=== PATIENT | female | born 1985 | race Caucasian/White ===

== ENCOUNTER 2020-11-08 08:56 | Outpatient (CLI) | payer OTHER, SELFPAY ==
--- NOTE | ~2020-11-08 | MMUS_ITS ---
EXAMINATION: MM diagnostic mercedes BI w nisha, US breast BI complete HISTORY: Palpable left breast lump. Bilateral breast pain. TECHNIQUE: Bilateral full field ML, MLO and craniocaudal 3-D tomosynthesis images and right spot CC T omosynthesis image were performed and synthetic 2-D images were generated. Rolled medial and rolled l ateral craniocaudal views of right breast. CAD analysis was submitted and interpreted. High resolutio n complete bilateral breast ultrasound was performed. COMPARISON: 04/15/2019 bilateral diagnostic digital mammogram and complete bilateral breast ultrasound examination BREAST PARENCHYMAL COMPOSITION: The breasts are heterogeneously dense, which may obscure small masses . FINDINGS: MAMMOGRAPHIC FINDINGS: There is a biopsy marker on the left. History of prior benign left breast biopsy. There is an approximately 4 x 8 mm opacity in the posterior mid to upper inner right breast. No other suspicious mass of either breast is evident. ULTRASOUND: Right breast: 1:00 10 cm from nipple: There is an irregular hypoechoic mass measuring 6 x 3.5 x 3.1 mm, with some v ascularity. This likely corresponds to the mammographic mass noted in the upper inner quadrant of the right breast. Ultrasound-guided biopsy is recommended, with biopsy marker placement and subsequent p ostbiopsy mammogram to confirm that the sonographic and mammographic lesions correspond. No suspicious mass is detected elsewhere in the right breast. Left breast: No suspicious mass or shadowing is detected. IMPRESSION: 1. Suspicious 6 x 3.5 mm irregular right breast mass at 1:00 10 cm from nipple 2. Ultrasound-guided biopsy of right breast 1:00 lesion is recommended. BI-RADS category 4, suspicious findings. On 11/08/[address] Mccall telephoned the report and biopsy recommendation to Dr. Rick's [facility] Data Analyst Martha. Reviewed, dictated and finalized at location A. LATOR TECHNICIAN IMPRESSION: 1. Suspicious 6 x 3.5 mm irregular right breast mass at 1:00 10 cm from nipple 2. Ultrasound-guided biopsy of right breast 1:00 lesion is recommended. BI-RADS category 4, suspicious findings. On 11/08/[address] Mccall telephoned the report and biopsy recommenda tion to Dr. Rick's Log Handler Martha.
== END 2020-11-08 08:57 ==
PROVIDERS: PCP Family Medicine; Visit Provider Obstetrics & Gynecology
DX: N64.4 Mastodynia (principal); R92.8 Other abnormal and inconclusive findings on diagnostic imaging of breast
CPT/HCPCS: 76641; 77062; 77066; G0279

== ENCOUNTER → 2020-11-10 10:29 | Outpatient (CLI) | payer OTHER, SELFPAY ==
[2020-11-10 23:53] LABS: SARS-CoV-2 RNA PCR Negative
== END ==
PROVIDERS: PCP Family Medicine; Visit Provider Physician Assistant
DX: Z20.822 Contact with and (suspected) exposure to COVID-19 (principal); R52 Pain, unspecified
CPT/HCPCS: C9803; U0003; U0005

== ENCOUNTER → 2020-12-22 07:00 | Outpatient (CLI) | payer OTHER, SELFPAY ==
[2020-12-23 01:42] LABS: SARS-CoV-2 RNA PCR Negative
== END ==
PROVIDERS: PCP Family Medicine; Visit Provider Family Medicine
DX: R68.89 Other general symptoms and signs (principal); Z20.822 Contact with and (suspected) exposure to COVID-19
CPT/HCPCS: C9803; U0003; U0005

== ENCOUNTER 2021-06-26 15:25 | Emergency (ER) | payer OTHER, SELFPAY ==
[2021-06-26 15:32] VITALS: BP 135/93; PULSE 82; RESP 16; TEMP 36.2; O2SAT 98
--- NOTE | 2021-06-26 16:05 | ED.EAR ---
HPI - Ear Problem General Chief complaint: Ear Stated complaint: Ear Pain Time Seen by Provider: 06/26/21 15:50 Source: patient and RN notes reviewed Mode of arrival: ambulatory Limitations: no limitations History of Present Illness HPI Narrative: Patient presents today complaining of a 1 week history of left ear pain. Denies decreased hearing or drainage. Denies any additional symptoms to include cough, congestion, rhinorrhea, fever. Currently rates the ear pain 4/10 and has been using [id number] eardrops, Tylenol, and ibuprofen with mild relief. MD Complaint: ear pain Related Data Home Medications Medication Instructions Recorded Confirmed metoprolol succinate 100 mg 100 mg PO DAILY 07/07/20 06/26/21 tablet,extended release 24 hr escitalopram oxalate 10 mg PO DAILY 06/26/21 06/26/21 Allergies Allergy/AdvReac Type Severity Reaction Status Date / Time amlodipine Allergy Unknown peripheral Verified 06/26/21 15:52 edema promethazine Allergy Unknown Skin Verified 06/26/21 15:52 Reaction Review of Systems Review of Systems: CONSTITUTIONAL: Denies body aches, fever, chills, or sweats. EYES: Denies visual changes, redness, or discharge. ENT: Denies rhinorrhea, congestion, sore throat. + Left ear pain CARDIOVASCULAR: Denies chest pain, palpitations, or edema. RESPIRATORY: Denies cough or dyspnea. GASTROINTESTINAL: Denies abdominal pain, nausea, vomiting, or diarrhea. GENITOURINARY: Denies dysuria or hematuria. SKIN: Denies rash, itching, or wounds. MUSCULOSKELETAL: Denies back pain, joint pain, or myalgia. NEUROLOGIC: Denies headache, numbness, tingling, or weakness. PSYCH: Denies depression or anxiety. [facility] Surgical History Surgical History H/O dilation and curettage H/O wisdom tooth extraction H/O: section Hx of cholecystectomy Family History Family History Other Cerebrovascular accident Diabetes mellitus Family history of malignant neoplasm Hypertension Social History Social History Smoking status: Former smoker Smoking end date: 09/29/08 Alcohol intake: current Comments At time of signature, I have reviewed and agree with nursing past medical, surgical, social and family history unless otherwise noted. Please see nursing chart for further information. There is no relevant family history pertinent to the presenting complaint Exam Narrative: GENERAL: Well-appearing, well-nourished, and in no acute distress. HEAD: Normocephalic, atraumatic. EYES: EOMI. No redness or drainage. Conjunctivae normal. ENT: Mucous membranes pink and moist. Nares clear. No rhinorrhea. Right TM normal. Left TM erythematous and dull. NECK: Normal AROM. Supple. No lymphadenopathy. CHEST: No respiratory distress. Clear to auscultation. HEART: Regular rate and rhythm. No murmur appreciated. Normal peripheral pulses. EXTREMITIES: Normal range of motion. No edema. SKIN: Warm, dry, no rash. Capillary refill normal. Normal skin turgor. NEURO: No focal deficits. Alert and oriented x3. Gait steady. PSYCH: Normal affect. No signs of depression or anxiety. Course Vital Signs Vital signs: Vital Signs Temperature 97.2 F L 06/26/21 15:32 Pulse Rate 82 06/26/21 15:32 Respiratory Rate 16 06/26/21 15:32 Blood Pressure 135/93 H 06/26/21 15:32 Pulse Oximetry 98 06/26/21 15:32 Temperature 97.2 F L 06/26/21 15:32 Pulse Rate 82 06/26/21 15:32 Respiratory Rate 16 06/26/21 15:32 Blood Pressure 135/93 H 06/26/21 15:32 Pulse Oximetry 98 06/26/21 15:32 Reviewed. Pt has been instructed to follow up with her PCP regarding her elevated blood pressure today. Medical Decision Making Differential Diagnosis Differential Diagnosis: Otitis media, otitis externa, ruptured TM, serous otitis,
== END 2021-06-26 16:18 | disposition home or self-care (01) ==
PROVIDERS: Emergency Provider Nurse Practitioner; PCP Family Medicine
DX: H66.92 Otitis media, unspecified, left ear (principal); Z87.891 Personal history of nicotine dependence
CPT/HCPCS: 99213; G0463

== ENCOUNTER → 2021-08-18 00:31 | Outpatient (CLI) | payer OTHER, SELFPAY ==
[2021-08-18 18:14] LABS: SARS-CoV-2 RNA PCR Negative
== END ==
PROVIDERS: PCP Family Medicine; Visit Provider Physician Assistant
DX: R51.9 Headache, unspecified (principal); R09.81 Nasal congestion; Z20.822 Contact with and (suspected) exposure to COVID-19
CPT/HCPCS: C9803; U0003; U0005

== ENCOUNTER 2021-09-02 22:28 | Emergency (ER) | payer OTHER, SELFPAY ==
[2021-09-02 22:30] VITALS: BP 178/113; PULSE 93; RESP 20; TEMP 36.3; O2SAT 100
--- NOTE | 2021-09-03 01:08 | ED.EAR ---
HPI - Ear Problem General Chief complaint: Ear Stated complaint: r ear pain Time Seen by Provider: 09/03/21 00:55 Source: patient History of Present Illness HPI Narrative: Patient presents with right ear pain. Reports she has had symptoms all day and they are getting progressively worse. She is attempted iyyw-dez-easocys medications with out relief so she came to the ER for evaluation. She has rinse her ear out with hydroperoxide and noted some scant amount of drainage. She reports her hearing feels muffled on the right side. She also reports her pain is achy, constant, radiates to her jaw worsened with opening her jaw denies any fevers, chills, trauma. Related Data Home Medications Medication Instructions Recorded Confirmed metoprolol succinate 100 mg 100 mg PO DAILY 07/07/20 06/26/21 tablet,extended release 24 hr escitalopram oxalate 10 mg PO DAILY 06/26/21 06/26/21 Allergies Allergy/AdvReac Type Severity Reaction Status Date / Time amlodipine Allergy Unknown peripheral Verified 09/02/21 22:33 edema promethazine Allergy Unknown Skin Verified 09/02/21 22:33 Reaction Review of Systems Review of Systems: CONSTITUTIONAL: Denies fever, chills, or sweats. EYES: Denies visual changes, redness, or discharge. ENT: Denies rhinorrhea, congestion, sore throat CARDIOVASCULAR: Denies chest pain, palpitations, or edema. RESPIRATORY: Denies cough or dyspnea. GASTROINTESTINAL: Denies abdominal pain, nausea, vomiting, or diarrhea. GENITOURINARY: Denies dysuria or hematuria. SKIN: Denies rash or itching. MUSCULOSKELETAL: Denies back pain, joint pain, or myalgia. NEUROLOGIC: Denies headache, numbness, dizziness, or weakness. PSYCHIATRIC: Denies anxiety or depression. All systems reviewed & are unremarkable except as noted in HPI and below PMFSH Surgical History Surgical History H/O dilation and curettage H/O wisdom tooth extraction H/O: section Hx of cholecystectomy Family History Family History Other Cerebrovascular accident Diabetes mellitus Family history of malignant neoplasm Hypertension Social History Social History Smoking status: Former smoker Smoking end date: 09/29/08 Alcohol intake: current Exam Narrative: GENERAL: Well-appearing, well-nourished, and in no acute distress. HEAD: Normocephalic, atraumatic. EYES: PERRLA and EOMI. ENT: Nares clear, no rhinorrhea or epistaxis. Mucous membranes moist. Unable to visualize the right TM due to EAC being edematous and erythematous NECK: Supple. No masses. No JVD EXTREMITIES: Normal range of motion. No edema. SKIN: Warm, dry, no rash. NEURO: No focal deficits. Alert and oriented x3. PSYCH: Normal mood and affect. Course Vital Signs Vital signs: Vital Signs Temperature 36.3 C L 09/02/21 22:30 Pulse Rate 93 09/02/21 22:30 Respiratory Rate 20 09/02/21 22:30 Blood Pressure 178/113 H 09/02/21 22:30 Pulse Oximetry 100 09/02/21 22:30 Temperature 36.3 C L 09/02/21 22:30 Pulse Rate 99 09/03/21 01:26 Respiratory Rate 18 09/03/21 01:26 Blood Pressure 160/100 H 09/03/21 01:26 Pulse Oximetry 99 09/03/21 01:26 Medical Decision Making [facility] Narrative Medical decision making narrative: H&P as above, vss, pt looks clinically well, exam with edematous and erythematous EAC on the right, labs/img considered, symptomatic relief available as needed, on reevaluation pt continues to looks clinically well. Suspect otitis externa, dns abscess, severe sepsis, severe dehydration. plan to tx/monitor as op w/ pcm f/u findings/plan discussed with pt, pt agree/comfortable with plan, return precautions given Vital Signs Vital Signs: Vital Signs Temperature 36.3 C L 09/02/21 22:30 Pulse Rate 93 09/02/21 22:30 Respiratory Rate 20 09/02/21 22:30 Blood Pr
[2021-09-03 01:26] VITALS: BP 160/100; PULSE 99; RESP 18; O2SAT 99
== END 2021-09-03 01:27 | disposition home or self-care (01) ==
PROVIDERS: Emergency Provider Emergency Medicine; PCP Family Medicine
DX: H60.501 Unspecified acute noninfective otitis externa, right ear (principal)
CPT/HCPCS: 99283

== ENCOUNTER 2021-11-19 13:03 | Emergency (ER) | payer OTHER, SELFPAY ==
--- NOTE | ~2021-11-19 | XR_ITS ---
EXAMINATION: XR chest 2V EXAM DATE: 11/19/2021 15:07 INDICATION: Chest pain, palpitations, HTN, blurry vision. TECHNIQUE: Frontal and lateral projections of the chest obtained and reviewed. Comparison is made to prior examination from 06/30/2019. FINDINGS: The lungs are clear. There are no pleural effusions. The cardiomediastinal silhouette is within normal limits. There is no pneumothorax suspected. The bones and soft tissues are unremarkab le. IMPRESSION: No acute cardiopulmonary findings. Reviewed, dictated and finalized at location A. CH FOLDER
--- NOTE | ~2021-11-19 | CT_ITS ---
EXAMINATION: CT brain wo con INDICATION: Blurred vision and dizziness COMPARISON: 02/15/2019 TECHNIQUE: Standard unenhanced head CT. The dose-length product (DLP) was 605.33 mGy-cm. The mA was a djusted according to patient size. Iterative reconstruction technique was employed. FINDINGS: There is no intracranial hemorrhage, acute infarction, or abnormal mass lesion. The ventric les are normal. There is no abnormal mass effect or midline shift. The rome-white matter differentiat ion is normal. The basal cisterns are patent. The orbits are normal. The paranasal sinuses, mastoids and calvarium are normal. IMPRESSION: 1. No acute intracranial abnormality. Reviewed, dictated and finalized at location F. ULATING BLENDER
--- NOTE | 2021-11-19 13:04 | ECG_ITS ---
Measurements Intervals [place] Rate: 87 P: 44 NV: 158 QRS: -17 QRSD: 96 T: 30 QT: 375 QTc: 454 Interpretive Statements SINUS RHYTHM BORDERLINE R WAVE PROGRESSION, ANTERIOR LEADS BORDERLINE ECG Electronically Signed On 11-19-2021 13:14:43 EXERCISE PLANNER by Michael Alberto D.O.
[2021-11-19 13:14] VITALS: BP 179/111; PULSE 95; RESP 16; TEMP 36.4; O2SAT 96
[2021-11-19 14:56] LABS: Basophils Absolute Auto 0.1 K/mm3 (0.0-0.1); Basophils Percent Auto 0.7 % (0.2-1.2); Eosinophils Absolute Auto 0.2 K/mm3 (0-0.3); Eosinophils Percent Auto 2.5 % (0-4.4); Hematocrit 41.4 % (37.0-47.0); Hemoglobin 14.1 g/dL (12.0-15.0); Immature Granulocyte Absolute 0.04 K/mm3 (0.00-0.031); Immature Granulocyte Percent A 0.5 % (0-0.5); Lymphocytes Absolute Auto 2.62 K/mm3 (0.9-3.2); Lymphocytes Percent Auto 32.7 % (18.3-44.2); Mean Corpuscular HGB Conc 34.1 g/dl (32-36); Mean Corpuscular Hemoglobin 27.9 pg (26-34); Mean Corpuscular Volume 81.8 fl (80-100); Mean Platelet Volume 10.1 fl (7.4-10.4); Monocytes Absolute Auto 0.6 K/mm3 (0.1-0.6); Monocytes Percent Auto 7.5 % (2.6-8.5); Neutrophils Absolute Auto 4.5 K/mm3 (1.3-6.7); Neutrophils Percent Auto 56.1 % (45.5-73.1); Platelet Count Result 279 k/mm3 (150-375); Red Blood Count 5.06 M/mm3 (4.2-5.4)
[2021-11-19 15:00] LABS: Prothrombin Time 12.6 Seconds (11.1-14.7)
[2021-11-19 15:02] LABS: Alanine Aminotransferase 49 U/L (4-35); Albumin Level 4.3 g/dL (3.5-5.1); Alkaline Phosphatase 50 U/L (38-126); Anion Gap 8 mmol/L (8-16); Aspartate Amino Transferase 31 U/L (14-36); Bilirubin,Total 0.8 mg/dL (0.2-1.3); Blood Urea Nitrogen 10 mg/dL (7-17); Calcium 9.3 mg/dL (8.4-10.2); Carbon Dioxide 24 mmol/L (22-30); Chloride 104 mmol/L (98-107); Estimated CRCL calculation 125 ml/min; Estimated Glomerular Filt Rate > 60; Glucose 137 mg/dL (65-110); Lipase 89 U/L (23-300); Potassium 3.6 mmol/L (3.4-5.0); Sodium 136 mmol/L (137-145)
[2021-11-19 15:13] LABS: Troponin I < 0.012 ng/mL (0.000-0.034)
[2021-11-19 15:14] VITALS: BP 156/103; PULSE 96; RESP 20; O2SAT 98
--- NOTE | 2021-11-19 15:43 | ED.CHESTPAIN ---
HPI - Chest Pain General Chief Complaint: Chest Pain Stated Complaint: chest pain, dizzy Time Seen by Provider: 11/19/21 15:25 Source: patient Mode of arrival: ambulatory Limitations: no limitations History of Present Illness HPI narrative: 36 y/o female presents to the ER with complaints of feeling tired today. She feels like her vision is a little blurred today. She reports having feelings of brain fog today. She has had more palpitations than normal today. She has a history of PVCs. Her blood pressure is a little bit up today. She has not had any fever. No n/v/d. No congestion, cough or sore throat. Denies having any chest pain. Related Data Home Medications Medication Instructions Recorded Confirmed metoprolol succinate 100 mg 100 mg PO DAILY 07/07/20 09/14/21 tablet,extended release 24 hr Allergies Allergy/AdvReac Type Severity Reaction Status Date / Time amlodipine Allergy Unknown peripheral Verified 09/14/21 14:45 edema promethazine Allergy Unknown Skin Verified 09/14/21 14:45 Reaction Review of Systems Constitutional: Constitutional: Reports as per HPI Eyes: Eyes: Reports no additional eye complaints ENT: Reports system reviewed and no additional complaints, except as documented Cardiovascular: Cardiovascular: Reports as per HPI, Reports no additional cardiovascular complaints, Denies chest pain and Denies rapid heart rate Respiratory: Respiratory: Denies chest congestion, Denies cough and Denies dyspnea Gastrointestinal: Gastrointestinal: Denies abdominal pain, Denies diarrhea, Denies nausea and Denies vomiting Genitourinary: Genitourinary: Reports no additional female genitourinary complaints Musculoskeletal: Musculoskeletal: Reports no additional musculoskeletal complaints Integumentary/Breasts: Skin/Breast: Reports system reviewed and no additional complaints, except as docu Neurologic: Denies vertigo, Reports dizziness, Denies syncope, Denies focal weakness and Denies numbness Psychiatric: Psychiatric: Reports no additional psychiatric complaints Endocrine: Endocrine: Reports no additional endocrine complaints [facility] Surgical History Surgical History H/O dilation and curettage H/O wisdom tooth extraction H/O: section Hx of cholecystectomy Family History Family History Other Cerebrovascular accident Diabetes mellitus Family history of malignant neoplasm Hypertension Social History Social History Smoking status: Former smoker Smoking end date: 09/29/08 Alcohol intake: current Exam Const: General: no acute distress and alert Orientation/consciousness: patient oriented x3 HENMT: Head: normal to inspection Eyes: Conjunctivae: conjunctivae normal Pupils: Equal, round and reactive pupils present EOM: EOMs intact bilaterally Neck: Neck: normal visual inspection Chest: Chest palpation & inspection: normal inspection of the chest Resp: Effort & Inspection: normal respiratory effort Cardio: Rate: regular rate Rhythm: regular rhythm GI: GI Palp: Yes Soft to palpation, No Tenderness to palpation present (GI) and No Guarding due to palpation present (GI) Auscultation: normal bowel sounds Skin: General skin exam: normal color Neuro: General: patient oriented x3 and moves all extremities Extrem: General: normal to inspection Psych: Mental Status: mental status grossly normal Affect: normal affect Course Vital Signs Vital signs: Vital Signs Temperature 36.4 C 11/19/21 13:14 Pulse Rate 95 11/19/21 13:14 Respiratory Rate 16 11/19/21 13:14 Blood Pressure 179/111 H 11/19/21 13:14 Pulse Oximetry 96 11/19/21 13:14 Temperature 36.4 C 11/19/21 13:14 Pulse Rate 96 11/19/21 15:14 Respiratory Rate 20 11/19/21 15:14 Blood Pressure 156/103 H 0
== END 2021-11-19 17:19 | disposition home or self-care (01) ==
LOC: ANHED 17:00
PROVIDERS: Emergency Medicine; Emergency Provider Nurse Practitioner Family; PCP Family Medicine
DX: R00.2 Palpitations (principal); R42 Dizziness and giddiness; I10 Essential (primary) hypertension; Z87.891 Personal history of nicotine dependence; R94.31 Abnormal electrocardiogram [ECG] [EKG]
CPT/HCPCS: 36415; 70450; 71046; 80053; 83690; 84484; 85025; 85610; 85730; 93005; 99284

== ENCOUNTER 2022-01-25 00:45 | Day surgery (SDC) | payer OTHER, SELFPAY ==
[2022-01-14 12:44] VITALS: BMI 48.1
[2022-01-25 10:09] VITALS: BP 134/81; PULSE 82; RESP 18; TEMP 36.6; O2SAT 98
[2022-01-25] MEDS: LACTATED RINGERS 1,000 ML 150 ML IV CONT (10:22)
--- NOTE | 2022-01-25 10:58 | WPDHPUPDATE1 ---
History and Physical Update Update Date/Time: 01/25/22 10:58 History and Physical has been reviewed, including an updated exam of the patient. There are NO changes in the patient's condition. Risks, benefits, and alternatives have been discussed and questions answered. Patient agrees to proceed with procedure.
[2022-01-25 11:20] VITALS: BP 113/65; PULSE 75; RESP 15; O2SAT 98
[2022-01-25 11:30] VITALS: BP 107/74; PULSE 79; RESP 20; O2SAT 98
[2022-01-25 11:40] VITALS: BP 117/76; PULSE 76; RESP 18; O2SAT 98
== END 2022-01-25 11:52 | disposition home or self-care (01) ==
PROVIDERS: PCP Family Medicine; Visit Provider Internal Medicine Gastroenterology
PROC: 0DJ08ZZ Inspection of Upper Intestinal Tract, Via Natural or Artificial Opening Endoscopic (ICD-10-PCS; CPT 43235; principal; 2022-01-25 11:15)
DX: R10.13 Epigastric pain (principal); K21.9 Gastro-esophageal reflux disease without esophagitis; I10 Essential (primary) hypertension; M79.7 Fibromyalgia; Z87.891 Personal history of nicotine dependence; K58.9 Irritable bowel syndrome, unspecified; E66.01 Morbid (severe) obesity due to excess calories; Z68.42 Body mass index [BMI] 45.0-49.9, adult
CPT/HCPCS: 43239; 87081; 88305; J7120

== ENCOUNTER 2022-03-14 18:38 | Emergency (ER) | payer OTHER, SELFPAY ==
[2022-03-14 18:48] VITALS: BP 140/91; PULSE 90; RESP 18; TEMP 36.2; O2SAT 99
--- NOTE | 2022-03-14 18:51 | ED.URI ---
HPI - URI/Sore Throat General Chief Complaint: Upper Respiratory Infection Stated Complaint: Congestion,Cough Time Seen by Provider: 03/14/22 18:52 Source: patient Mode of arrival: ambulatory Limitations: no limitations History of Present Illness HPI Narrative: 36 yo F presents with c/o fatigue, sore throat, hot/cold chills, mild cough starting yesterday. Was exposed to sister and brother in law who both have covid. States her sister had neg test and then several days later was positive. Denies SOB/CP. Is covid vaccinated. All systems reviewed and negative except as noted above. Related Data Home Medications Medication Instructions Recorded Confirmed lisinopril 10 mg tablet 10 mg PO DAILY 12/31/21 03/14/22 metoprolol succinate 100 mg 100 mg PO DAILY 12/31/21 03/14/22 tablet,extended release 24 hr metoprolol succinate 50 mg 50 mg PO DAILY 12/31/21 03/14/22 tablet,extended release 24 hr Allergies Allergy/AdvReac Type Severity Reaction Status Date / Time amlodipine Allergy Unknown peripheral Verified 01/25/22 10:08 edema promethazine Allergy Unknown Skin Verified 01/25/22 10:08 Reaction Review of Systems Review of Systems: CONSTITUTIONAL: Reports fever, chills, or sweats. EYES: Denies visual changes, redness, or discharge. ENT: Denies rhinorrhea, congestion. Reports sore throat. CARDIOVASCULAR: Denies chest pain, palpitations, or edema. RESPIRATORY: Reports cough. Denies dyspnea. GASTROINTESTINAL: Denies abdominal pain, nausea, vomiting, or diarrhea. GENITOURINARY: Denies dysuria or hematuria. SKIN: Denies rash or itching. MUSCULOSKELETAL: Denies back pain, joint pain, or myalgia. NEUROLOGIC: Denies headache, numbness, or weakness. PSYCHIATRIC: Denies anxiety or depression. All other systems reviewed are negative, except as documented in HPI. [facility] Past Medical History Medical History IBS (irritable bowel syndrome) Surgical History Surgical History H/O dilation and curettage H/O wisdom tooth extraction H/O: section Hx of cholecystectomy Family History Family History Other Cerebrovascular accident Diabetes mellitus Family history of malignant neoplasm Hypertension Social History Social History Smoking packs per day: 1 Smoking cigarettes per day: 20.0 Years smoked: 5 Smoking pack-years: 5.00 Smoking status: Former smoker Tobacco type: cigarettes Smoking end date: 09/29/08 Alcohol intake: current Comments At time of signature, agree with nursing past medical, surgical, social and family history. There is no relevant family history pertinent to the presenting complaint. Exam Narrative: GENERAL: This is a well-nourished, well-developed patient. Patient is ill-appearing but no distress. HEAD: normocephalic, atraumatic. EYES: PERRL. Sclera clear/white. Vision is grossly intact. EARS: External ears normal, auditory canals clear and without drainage, TMs normal without perforation. Hearing grossly intact. NOSE: External nose normal with no obvious nasal discharge, nares without redness, no rhinorrhea. THROAT: Mucous membranes moist, mild erythema to posterior pharynx. NECK: Neck supple, non-tender without lymphadenopathy, masses or thyromegaly. CARDIOVASCULAR: Regular rate and rhythm without murmurs, gallops, or rubs. RESPIRATORY: Clear to auscultation. Breath sounds equal bilaterally. No wheezes, rales, or rhonchi. SKIN: warm, Dry, intact with no suspicious lesions or rash, good texture and turgor. NEURO: awake, alert, and oriented to person, place and time. There were no obvious focal neurologic abnormalities. EXTREMITIES: No joint tenderness, effusion, or edema noted. Course Course Level of Care: Express Care Visit Nikki
[2022-03-15 19:17] LABS: SARS-CoV-2 RNA PCR Negative
== END 2022-03-14 19:33 | disposition home or self-care (01) ==
PROVIDERS: Emergency Provider Nurse Practitioner Family; PCP Family Medicine
DX: J06.9 Acute upper respiratory infection, unspecified (principal); Z20.822 Contact with and (suspected) exposure to COVID-19; Z87.891 Personal history of nicotine dependence
CPT/HCPCS: 87081; 87426; 87804; 87880; 99213; C9803; G0463; U0003; U0005

== ENCOUNTER 2022-05-20 12:07 | Emergency (ER) | payer OTHER, SELFPAY ==
--- NOTE | ~2022-05-20 | CT_ITS ---
EXAMINATION: CTA chest PE protocol DATE: 05/20/2022 15:44 INDICATION: Chest pain, shortness of breath, COVID 19 positive TECHNIQUE: Computed tomography angiography (CTA) of the chest was performed with 100 mL Omnipaque-350 intravenous contrast timed to evaluate the pulmonary arteries. Coronal maximum intensity projection 3D-reconstructions were created by the technologist. The dose-length product (DLP) was 930.20 mGy-cm. Automated exposure control and iterative reconstruction technique were employed. COMPARISON: None. FINDINGS: The pulmonary arteries are well-opacified. No pulmonary embolism is identified. There is mi ld dependent atelectasis. No pleural effusion or pneumothorax. The heart size is normal. An enlarged left axillary lymph node measures up to 12 mm. Minimal minimal triangular soft tissue density of the anterior mediastinum is seen, likely residual thymus. There is mild thoracic spondylosis. IMPRESSION: 1. No pulmonary embolus identified. 2. Enlarged left axillary lymph node which may be reactive. Correlate for history of recent left-side d vaccination. In the absence of such history, follow-up with nonemergent ultrasound is recommended. Reviewed, dictated and finalized at location B. IMPRESSION: 1. No pulmonary embolus identified. 2. Enlarged left axillary lymph node which may be reactive. Correlate for histo ry of recent left-sided vaccination. In the absence of such history, follow-up with nonemergent ultrasound is recommended.
--- NOTE | ~2022-05-20 | XR_ITS ---
EXAMINATION: XR chest 2V DATE: 05/20/2022 13:12 INDICATION: Chest pain and shortness of breath TECHNIQUE: PA and lateral views of the chest are obtained. COMPARISON: 11/19/2021 FINDINGS: The lungs are free of acute opacities. No pleural effusion or pneumothorax. The cardiomedia stinal silhouette is normal. There is mild thoracic spondylosis. IMPRESSION: 1. No acute cardiopulmonary abnormality. Reviewed, dictated and finalized at location B.
--- NOTE | 2022-05-20 12:10 | ECG_ITS ---
Measurements Intervals [place] Rate: 73 P: 18 IL: 149 QRS: -15 QRSD: 100 T: 19 QT: 393 QTc: 433 Interpretive Statements SINUS RHYTHM POOR R WAVE PROGRESSION BORDERLINE ECG COMPARED TO ECG 11/19/2021 13:10:40 NO SIGNIFICANT CHANGES Electronically Signed On 05-20-2022 16:37:42 CDT by Isidoro Olvera M.D.
[2022-05-20 12:23] VITALS: BP 146/78; PULSE 74; RESP 16; TEMP 36.8; O2SAT 100
[2022-05-20 12:41] LABS: Basophils Absolute Auto 0.1 K/mm3 (0.0-0.1); Basophils Percent Auto 0.9 % (0.2-1.2); Eosinophils Percent Auto 0.8 % (0-4.4); Hematocrit 46.3 % (37.0-47.0); Hemoglobin 15.4 g/dL (12.0-15.0); Immature Granulocyte Absolute 0.02 K/mm3 (0.00-0.031); Immature Granulocyte Percent A 0.4 % (0-0.5); Lymphocytes Absolute Auto 2.31 K/mm3 (0.9-3.2); Lymphocytes Percent Auto 43.8 % (18.3-44.2); Mean Corpuscular HGB Conc 33.3 g/dl (32-36); Mean Corpuscular Hemoglobin 27.8 pg (26-34); Mean Corpuscular Volume 83.6 fl (80-100); Mean Platelet Volume 10.6 fl (7.4-10.4); Monocytes Absolute Auto 0.4 K/mm3 (0.1-0.6); Neutrophils Absolute Auto 2.4 K/mm3 (1.3-6.7); Neutrophils Percent Auto 46.1 % (45.5-73.1); Platelet Count Result 246 k/mm3 (150-375); Red Blood Count 5.54 M/mm3 (4.2-5.4); White Blood Count 5.3 K/mm3 (4.5-10.0)
[2022-05-20 12:52] LABS: INR 1.1; Prothrombin Time 13.6 Seconds (11.1-14.7)
[2022-05-20 12:53] LABS: Alanine Aminotransferase 79 U/L (6-35); Alkaline Phosphatase 49 U/L (38-126); Anion Gap 14 mmol/L (8-16); Aspartate Amino Transferase 49 U/L (14-36); Bilirubin,Total 0.7 mg/dL (0.2-1.3); Blood Urea Nitrogen 9 mg/dL (7-17); Calcium 9.5 mg/dL (8.4-10.2); Carbon Dioxide 22 mmol/L (22-30); Chloride 104 mmol/L (98-107); Estimated CRCL calculation 86 ml/min; Estimated Glomerular Filt Rate > 60; Glucose 171 mg/dL (65-110); Lipase 90 U/L (23-300); Potassium 3.7 mmol/L (3.4-5.0); Sodium 140 mmol/L (137-145)
[2022-05-20 13:04] LABS: Troponin I < 0.012 ng/mL (0.000-0.034)
[2022-05-20] MEDS: ASPIRIN 81 MG CHEWABLE TABLET 324 MG PO (13:41)
[2022-05-20 13:45] VITALS: BP 156/94; PULSE 76
[2022-05-20 13:49] VITALS: BP 165/85; PULSE 80
[2022-05-20 13:53] VITALS: BP 147/101; PULSE 96
--- NOTE | 2022-05-20 15:19 | ED.CHESTPAIN ---
HPI - Chest Pain General Chief Complaint: Chest Pain Stated Complaint: covid +, chest pain Time Seen by Provider: 05/20/22 13:37 History of Present Illness HPI narrative: Patient is a 37-year-old female who presents ER with chest pain. Central. Aching pressure is a descriptor. Began yesterday and has been constant. Patient was diagnosed on 05/18/2022 with COVID and has been taking Plavix to bed. Occasional cough. No dyspnea. No discomfort with palpation of the chest. Initially thought the discomfort was related to her fibromyalgia. No new calf cramping or lower extremity edema. Related Data Home Medications Medication Instructions Recorded Confirmed lisinopril 10 mg tablet 10 mg PO DAILY 12/31/21 05/03/22 metoprolol succinate 100 mg 200 mg PO DAILY 05/03/22 05/03/22 tablet,extended release 24 hr Allergies Allergy/AdvReac Type Severity Reaction Status Date / Time amlodipine Allergy Unknown peripheral Verified 05/03/22 13:02 edema promethazine Allergy Unknown Skin Verified 05/03/22 13:02 Reaction Review of Systems Review of Systems: All systems reviewed & are unremarkable except as noted in HPI and below Constitutional: Constitutional: Reports fatigue and Reports fever(s) Cardiovascular: Cardiovascular: Reports chest pain, Denies rapid heart rate and Denies radiating jaw, neck or arm pain Respiratory: Respiratory: Reports cough and Denies dyspnea Gastrointestinal: Gastrointestinal: Denies abdominal pain, Denies nausea and Denies vomiting Genitourinary: Genitourinary: Denies nocturia, Denies dysuria and Denies pelvic pain [facility] Past Medical History Medical History (Updated 05/20/22 @ 16:39 by Juan Sosa MD) Benign essential hypertension Bruxism Esophageal reflux Fibromyalgia IBS (irritable bowel syndrome) Panic disorder without agoraphobia PVC (premature ventricular contraction) Surgical History Surgical History H/O dilation and curettage H/O wisdom tooth extraction H/O: section Hx of cholecystectomy Family History Family History Other Cerebrovascular accident Diabetes mellitus Family history of malignant neoplasm Hypertension Social History Social History Smoking packs per day: 1 Smoking cigarettes per day: 20.0 Years smoked: 5 Smoking pack-years: 5.00 Smoking status: Former smoker Tobacco type: cigarettes Smoking end date: 09/29/08 Alcohol intake: current Exam Narrative: GENERAL: Well-appearing, well-nourished, and in no acute distress. HEAD: Normocephalic, atraumatic. NECK: Supple. CHEST: Clear to auscultation. No respiratory distress. HEART: Regular rate and rhythm. No murmur heard. Normal peripheral pulses. ABDOMEN: Soft, nontender, nondistended. EXTREMITIES: Normal range of motion. No edema. SKIN: Warm, dry, no rash. NEURO: Alert and oriented x3. PSYCH: Normal mood and affect. Course Course Emergency Course: Patient informed of results. Discussed enlarged lymph node and patient has had no recent immunizations. Recommend outpatient ultrasound patient verbalized understanding. We will perform second troponin if negative patient will be discharged. Patient's discomfort could be related to pleurisy or exacerbation of fibromyalgia. Vital Signs Vital signs: Vital Signs Temperature 98.3 F 05/20/22 12:23 Pulse Rate 74 05/20/22 12:23 Respiratory Rate 16 05/20/22 12:23 Blood Pressure 146/78 H 05/20/22 12:23 Pulse Oximetry 100 05/20/22 12:23 Oxygen Delivery Room Air 05/20/22 12:23 Temperature 98.3 F 05/20/22 12:23 Pulse Rate 96 05/20/22 13:53 Respiratory Rate 16 05/20/22 12:23 Blood Pressure 147/101 H 05/20/22 13:53 Pulse Oximetry 100 05/20/22 12:23 Oxygen Delivery Room Air 05/20/22 12:23 MDM - Chest Pain
[2022-05-20 16:45] LABS: Troponin I < 0.012 ng/mL (0.000-0.034)
== END 2022-05-20 16:42 | disposition home or self-care (01) ==
PROVIDERS: Emergency Medicine; Emergency Provider Emergency Medicine; PCP Family Medicine
DX: R07.9 Chest pain, unspecified (principal); U07.1 COVID-19; I10 Essential (primary) hypertension; K21.9 Gastro-esophageal reflux disease without esophagitis; M79.7 Fibromyalgia
CPT/HCPCS: 36415; 71046; 71275; 80053; 81025; 83690; 84484; 85025; 85610; 85730; 93005; 99284; A9270; Q9967

== ENCOUNTER 2022-07-28 09:47 | Emergency (ER) | payer OTHER, SELFPAY ==
--- NOTE | 2022-07-28 09:51 | ED.EAR ---
HPI - Ear Problem General Stated complaint: Left Ear Irritation Time Seen by Provider: 07/28/22 09:51 Source: patient Mode of arrival: ambulatory Limitations: no limitations History of Present Illness HPI Narrative: Ms. Cedeno is a 37-year-old female patient presenting to the clinic today with complaints left-sided ear pain. She reports that she had recently traveled to [place] and had left-sided ear pain. States that her ear was popping a lot in the plane. States that her trip back was a little bit better she was chewing gum however she does have some nasal congestion. No fever or chills Related Data Home Medications Medication Instructions Recorded Confirmed lisinopril 10 mg tablet 10 mg PO DAILY 12/31/21 07/28/22 metoprolol succinate 100 mg 200 mg PO DAILY 05/03/22 07/28/22 tablet,extended release 24 hr Allergies Allergy/AdvReac Type Severity Reaction Status Date / Time amlodipine Allergy Unknown peripheral Verified 07/28/22 10:02 edema promethazine Allergy Unknown Skin Verified 07/28/22 10:02 Reaction Review of Systems Review of Systems: Pertinent positives per HPI. Patient denies any fever, chills, rash, headache, visual changes, dizziness, cough, sore throat, shortness of breath, chest pain, palpitations, nausea, vomiting, diarrhea, constipation, abdominal pain, or any urinary issues. [facility] Past Medical History Medical History Benign essential hypertension Bruxism Esophageal reflux Fibromyalgia IBS (irritable bowel syndrome) Panic disorder without agoraphobia PVC (premature ventricular contraction) Surgical History Surgical History H/O dilation and curettage H/O wisdom tooth extraction H/O: section Hx of cholecystectomy Family History Family History Other Cerebrovascular accident Diabetes mellitus Family history of malignant neoplasm Hypertension Social History Social History Smoking packs per day: 1 Smoking cigarettes per day: 20.0 Years smoked: 5 Smoking pack-years: 5.00 Smoking status: Former smoker Tobacco type: cigarettes Smoking end date: 09/29/08 Alcohol intake: current Comments At the time of my signature, I reviewed and agree with the nursing past medical, surgical, social, and family history. There is no relevant family history pertinent to the patient complaint. Exam Narrative: General: Well-developed, obese, in no apparent distress Head: Normocephalic, atraumatic Eyes: Pupils equally round and reactive to light bilaterally, EOM intact, sclera and conjunctive clear, no discharge, lids normal Ears: right TMs intact and clear, left TM intact and bulging, ear canals clear, no drainage, grossly hearing normal. Nose: Nares patent, clear nasal discharge, no inflammation, no sinus tenderness. Mouth: Oropharynx without lesions or masses, good dentition, MMM. Neck: Supple, trachea midline, no enlargement of anterior or posterior cervical nodes, no thyroid masses or goiter palpable. Cardio: Regular rate and rhythm, s1 and s2 normal, no murmur appreciated. Resp: Clear to auscultation bilaterally anteriorly and posteriorly, no rhonchi, rales, wheezing or rubs Course Course Emergency Course: Portions of this record may have been created with voice recognition software. Level of Care: Express Care Visit Vital Signs Vital signs: Vital Signs Temperature 36.7 C 07/28/22 09:57 Pulse Rate 85 07/28/22 09:57 Respiratory Rate 16 07/28/22 09:57 Blood Pressure 139/87 07/28/22 09:57 Pulse Oximetry 97 07/28/22 09:57 Oxygen Delivery Room Air 07/28/22 09:57 Temperature 36.7 C 07/28/22 09:57 Pulse Rate 85 07/28/22 09:57 Respiratory Rate 16 07/28/22 09:57 Blood
[2022-07-28 09:57] VITALS: BP 139/87; PULSE 85; RESP 16; TEMP 36.7; O2SAT 97
== END 2022-07-28 10:17 | disposition home or self-care (01) ==
PROVIDERS: Emergency Provider Nurse Practitioner Family; PCP Family Medicine
DX: H69.92 Unspecified Eustachian tube disorder, left ear (principal); Z87.891 Personal history of nicotine dependence; I10 Essential (primary) hypertension; K21.9 Gastro-esophageal reflux disease without esophagitis; M79.7 Fibromyalgia
CPT/HCPCS: 99213; G0463

== ENCOUNTER 2022-08-27 14:17 | Outpatient (CLI) | payer OTHER, SELFPAY ==
[2022-08-27 18:56] LABS: Basophils Absolute Auto 0.1 K/mm3 (0.0-0.1); Basophils Percent Auto 0.9 % (0.2-1.2); Eosinophils Absolute Auto 0.2 K/mm3 (0-0.3); Eosinophils Percent Auto 1.7 % (0-4.4); Hemoglobin 14.2 g/dL (12.0-15.0); Immature Granulocyte Absolute 0.02 K/mm3 (0.00-0.031); Immature Granulocyte Percent A 0.2 % (0-0.5); Lymphocytes Absolute Auto 3.45 K/mm3 (0.9-3.2); Lymphocytes Percent Auto 37.1 % (18.3-44.2); Mean Corpuscular HGB Conc 34.6 g/dl (32-36); Mean Corpuscular Hemoglobin 27.8 pg (26-34); Mean Corpuscular Volume 80.4 fl (80-100); Monocytes Absolute Auto 0.7 K/mm3 (0.1-0.6); Monocytes Percent Auto 7.2 % (2.6-8.5); Neutrophils Absolute Auto 4.9 K/mm3 (1.3-6.7); Neutrophils Percent Auto 52.9 % (45.5-73.1); Platelet Count Result 275 k/mm3 (150-375); Red Cell Distribution Width 13.4 % (11.5-14.5); White Blood Count 9.3 K/mm3 (4.5-10.0)
[2022-08-27 19:24] LABS: Alanine Aminotransferase 45 U/L (6-35); Albumin Level 4.2 g/dL (3.5-5.1); Alkaline Phosphatase 46 U/L (38-126); Anion Gap 11 mmol/L (8-16); Aspartate Amino Transferase 43 U/L (14-36); Bilirubin,Total 0.8 mg/dL (0.2-1.3); Blood Urea Nitrogen 13 mg/dL (7-17); Calcium 8.9 mg/dL (8.4-10.2); Carbon Dioxide 20 mmol/L (22-30); Chloride 106 mmol/L (98-107); Cholesterol 183 mg/dL (0-200); Estimated Glomerular Filt Rate > 60; Glucose 94 mg/dL (65-110); HDL Direct 35 mg/dL; Potassium 3.6 mmol/L (3.4-5.0); Sodium 137 mmol/L (137-145); Triglycerides 136 mg/dL (<150)
[2022-08-27 19:35] LABS: LDL Cholesterol Direct 113 mg/dL
[2022-08-27 20:56] LABS: Hemoglobin A1C 5.7 % (<5.7)
== END 2022-08-27 14:18 | disposition home or self-care (01) ==
LOC: ANHGOSHLAB 14:20
PROVIDERS: Visit Provider Physician Assistant
DX: I10 Essential (primary) hypertension (principal); R73.01 Impaired fasting glucose
CPT/HCPCS: 36415; 80053; 80061; 83036; 84443; 85025

== ENCOUNTER → 2022-08-27 14:33 | Outpatient (CLI) | payer OTHER, SELFPAY ==
--- NOTE | ~2022-08-27 | US_ITS ---
US axilla 08/27/2022 14:56 Indication: Enlarged axillary lymph nodes Procedure: High-resolution bilateral axillary ultrasound Comparison: No prior studies for comparison. Findings: There are enlarged bilateral axillary lymph nodes, all of which retain normal fatty hilum. Largest on the right measures up to 2.7 cm. Largest on the left measures up to 2.2 cm. Impression: 1: Bilateral axillary lymph node enlargement. All lymph nodes retain normal fatty hilum, most likely reactive. Recommend follow-up ultrasound as clinically warranted. Reviewed, dictated and finalized at location A. [employer]PER[employer] Impression: 1: Bilateral axillary lymph node enlargement. All lymph nodes retain normal fat ty hilum, most likely reactive. Recommend follow-up ultrasound as clinically wa rranted.
== END ==
LOC: EXPGOSHRAD 14:34
PROVIDERS: PCP Family Medicine; Visit Provider Family Medicine
DX: R59.1 Generalized enlarged lymph nodes (principal)
CPT/HCPCS: 76882

== ENCOUNTER 2022-09-02 11:51 | Outpatient (CLI) | payer OTHER, SELFPAY ==
[2022-09-04 18:24] LABS: Bartonella henselae IgG Negative; Bartonella henselae IgM Negative; Bartonella quintana IgG Negative; Bartonella quintana IgM Negative
== END 2022-09-02 11:52 | disposition home or self-care (01) ==
LOC: ANHGOSHLAB 11:57
PROVIDERS: PCP Family Medicine; Visit Provider Family Medicine
DX: R59.1 Generalized enlarged lymph nodes (principal)
CPT/HCPCS: 36415; 86611

== ENCOUNTER 2022-09-27 11:08 | Outpatient (CLI) | payer OTHER, SELFPAY ==
--- NOTE | ~2022-09-27 | MMUS_ITS ---
EXAMINATION: MM diagnostic mercedes BI w nisha, US breast BI complete HISTORY: Bilateral lower inner quadrant breast TECHNIQUE: ML, MLO and CC 3-D tomosynthesis images of both breasts were performed and synthetic 2-D i mages were generated. CAD analysis was submitted and interpreted. High resolution complete bilateral breast ultrasound examination including all 4 quadrants and subareolar areas was performed. COMPARISON: 11/08/2020 bilateral diagnostic mammogram and bilateral complete breast ultrasound examina tion 04/15/2019 bilateral diagnostic mammogram and complete bilateral breast ultrasound examination BREAST PARENCHYMAL COMPOSITION: There are scattered areas of fibroglandular density. FINDINGS: MAMMOGRAPHIC FINDINGS: There is a biopsy marker in the lower inner quadrant of the left breast; history of prior benign left breast biopsy. There is a circumscribed low-density 6 mm mass with relatively benign mammographic appearance in the lower central left breast near 6:00 and 6:30 o'clock position. There is an approximately 9 mm circumscribed opacity in the lateral subareolar left breast. No mass, architectural distortion, malignant calcification, skin thickening or retraction or signific ant new or developing density of either breast is noted otherwise. The ULTRASOUND: No suspicious mass or shadowing of either breast is detected. Right breast: 12:00 7 cm from nipple: Parallel circumscribed 5.6 x 3.4 x 5.3 mm hypoechoic solid lesion without int ernal vascularity or suspicious shadowing 1-2:00 area in region of scar: Approximately 2 x 5 x 10 mm small fluid collection and likely postoper ative seroma. Left breast: 7:00 3 cm from nipple: Parallel circumscribed hypoechoic 6 x 5 x 6.6 mm solid lesion wit hout internal vascularity or suspicious shadowing, likely benign IMPRESSION: 1. Benign findings 2. Routine mammographic screening is recommended BI-RADS Category 2: Benign finding(s). Reviewed, dictated and finalized at location A. MENT IMAGING MANAGER IMPRESSION: 1. Benign findings 2. Routine mammographic screening is recommended BI-RADS Category 2: Benign finding(s).
== END 2022-09-27 11:09 | disposition home or self-care (01) ==
LOC: ANHIMG 11:08
PROVIDERS: PCP Family Medicine; Visit Provider Family Medicine
DX: N64.4 Mastodynia (principal); R59.0 Localized enlarged lymph nodes
CPT/HCPCS: 76641; 77062; 77066; G0279

== ENCOUNTER 2022-10-02 14:31 | Outpatient (CLI) | payer OTHER, SELFPAY ==
[2022-10-02 20:09] LABS: Kit Draw Collected
== END 2022-10-02 14:32 | disposition home or self-care (01) ==
LOC: ANHGOSHLAB 14:33
PROVIDERS: PCP Family Medicine; Visit Provider Family Medicine
DX: R59.1 Generalized enlarged lymph nodes (principal)
CPT/HCPCS: 36415

== ENCOUNTER 2022-10-11 18:40 | Emergency (ER) | payer OTHER, SELFPAY ==
[2022-10-11 18:56] VITALS: BP 122/71; PULSE 87; RESP 16; TEMP 37.2; O2SAT 99
--- NOTE | 2022-10-11 18:59 | ED.EAR ---
HPI - Ear Problem General Chief complaint: Ear Stated complaint: Right Ear Irritation Time Seen by Provider: 10/11/22 18:59 Source: patient Mode of arrival: ambulatory Limitations: no limitations History of Present Illness HPI Narrative: 37-year-old female presents with complaint of right ear pain for 2-3 days. Reports pain getting progressively worse and now right-sided face is painful. States that she tried to irrigate year out today concerning for ear wax. States that nothing came out. Afebrile. All systems reviewed and negative except as noted above. Related Data Home Medications Medication Instructions Recorded Confirmed buspirone 7.5 mg tablet mg 10/11/22 lisinopril 10 mg tablet mg 10/11/22 metoprolol succinate 100 mg mg PO 10/11/22 tablet,extended release 24 hr metoprolol succinate 50 mg mg PO 10/11/22 tablet,extended release 24 hr milnacipran 50 mg tablet (Savella) mg 10/11/22 ondansetron HCl 4 mg tablet mg 10/11/22 pantoprazole 40 mg tablet,delayed mg PO 10/11/22 release triamterene 37.5 tablet 10/11/22 mg-hydrochlorothiazide 25 mg tablet Allergies Allergy/AdvReac Type Severity Reaction Status Date / Time amlodipine Allergy Unknown peripheral Verified 10/11/22 19:04 edema promethazine Allergy Unknown Skin Verified 10/11/22 19:04 Reaction Review of Systems Review of Systems: CONSTITUTIONAL: Denies fever, chills, or sweats. EYES: Denies visual changes, redness, or discharge. ENT: Denies rhinorrhea, congestion, sore throat . Reports right ear pain. CARDIOVASCULAR: Denies chest pain, palpitations, or edema. RESPIRATORY: Denies cough or dyspnea. GASTROINTESTINAL: Denies abdominal pain, nausea, vomiting, or diarrhea. GENITOURINARY: Denies dysuria or hematuria. SKIN: Denies rash or itching. MUSCULOSKELETAL: Denies back pain, joint pain, or myalgia. NEUROLOGIC: Denies headache, numbness, or weakness. PSYCHIATRIC: Denies anxiety or depression. All other systems reviewed are negative, except as documented in HPI. [facility] Past Medical History Medical History Benign essential hypertension Bruxism Esophageal reflux Fibromyalgia IBS (irritable bowel syndrome) Panic disorder without agoraphobia PVC (premature ventricular contraction) Surgical History Surgical History H/O dilation and curettage H/O wisdom tooth extraction H/O: section Hx of cholecystectomy Family History Family History Other Cerebrovascular accident Diabetes mellitus Family history of malignant neoplasm Hypertension Social History Social History Smoking packs per day: 1 Smoking cigarettes per day: 20.0 Years smoked: 5 Smoking pack-years: 5.00 Smoking status: Former smoker Tobacco type: cigarettes Smoking end date: 09/29/08 Alcohol intake: current Lack of Transportation: No Lack of Food: Sometimes True Current Housing: I Have Housing Concerned About Future Housing: No Difficulty Paying Gas/Electric Bills: YES Difficulty Paying for Meds: YES Currently Unemployed: No Education: Bachelor's Degree Difficulty w/ Childcare or Family Care: No Comments At time of signature, agree with nursing past medical, surgical, social and family history. There is no relevant family history pertinent to the presenting complaint. Exam Narrative: GENERAL: This is a well-nourished, well-developed patient, in no apparent distress. HEAD: normocephalic, atraumatic. EYES: PERRL. Sclera clear/white. Vision is grossly intact. EARS: External ears normal, Canal is erythematous and swollen with a Greenish drainage. right TM is retracted and erythematous. Left TM is normal. NOSE: External nose normal NECK: Neck supple, non-tender without lymphadenopathy,
== END 2022-10-11 19:08 | disposition home or self-care (01) ==
PROVIDERS: Emergency Provider Nurse Practitioner Family; PCP Family Medicine
DX: H66.91 Otitis media, unspecified, right ear (principal); H60.91 Unspecified otitis externa, right ear; Z87.891 Personal history of nicotine dependence; I10 Essential (primary) hypertension; M79.7 Fibromyalgia; K21.9 Gastro-esophageal reflux disease without esophagitis
CPT/HCPCS: 99213; G0463

== ENCOUNTER 2022-12-23 17:40 | Emergency (ER) | payer OTHER, SELFPAY ==
[2022-12-23 18:20] VITALS: BP 131/89; PULSE 88; RESP 18; TEMP 36.5; O2SAT 99
--- NOTE | 2022-12-23 18:47 | ED.EAR ---
HPI - Ear Problem General Chief complaint: Ear Stated complaint: Left Ear Irritation Time Seen by Provider: 12/23/22 18:44 Source: patient Mode of arrival: ambulatory Limitations: no limitations History of Present Illness HPI Narrative: 37-year-old female presenting for complaint of left ear pain worsening throughout the day. Hearing is muffled. endorses she gets ear infections about twice a year over the last 2-3 years. She has been following with ENT. She is taking Flonase and Zyrtec as directed. Reports recent sinus congestion and drainage. She denies shortness of breath, wheezing, nausea, vomiting, ear drainage, tinnitus, or dizziness. MD Complaint: ear pain Related Data Home Medications Medication Instructions Recorded Confirmed lisinopril 10 mg tablet 10 mg PO DAILY 10/11/22 12/23/22 metoprolol succinate 50 mg 150 mg PO DAILY 10/11/22 12/23/22 tablet,extended release 24 hr milnacipran 50 mg tablet (Savella) 50 mg PO BID 10/11/22 12/23/22 triamterene 37.5 1 tablet PO DAILY 10/11/22 12/23/22 mg-hydrochlorothiazide 25 mg tablet Allergies Allergy/AdvReac Type Severity Reaction Status Date / Time amlodipine Allergy Unknown peripheral Verified 12/23/22 17:56 edema promethazine Allergy Unknown Skin Verified 12/23/22 17:56 Reaction Review of Systems Review of Systems: CONSTITUTIONAL: Denies malaise, chills, or fever. EYES: Denies visual changes, redness, or discharge. ENT: Denies sinus pain, and sore throat. Reports ear pain, rhinorrhea, congestion CARDIOVASCULAR: Denies chest pain, palpitations, or edema. RESPIRATORY: Denies cough or dyspnea. GASTROINTESTINAL: Denies abdominal pain, nausea, vomiting, diarrhea SKIN: Denies rash or itching. MUSCULOSKELETAL: Denies myalgia. NEUROLOGIC: Denies headache. All systems reviewed & are unremarkable except as noted in HPI and below PMFSH Past Medical History Medical History Acute gastritis Benign essential hypertension Bruxism COVID Ear itching Esophageal reflux Fibromyalgia IBS (irritable bowel syndrome) Otalgia of both ears Otitis externa of right ear Panic disorder without agoraphobia PVC (premature ventricular contraction) Surgical History Surgical History H/O dilation and curettage H/O wisdom tooth extraction H/O: section Hx of cholecystectomy Family History Family History Other Cerebrovascular accident Diabetes mellitus Family history of malignant neoplasm Hypertension Social History Social History Smoking packs per day: 1 Smoking cigarettes per day: 20.0 Years smoked: 5 Smoking pack-years: 5.00 Smoking status: Former smoker Tobacco type: cigarettes Smoking end date: 09/29/08 Alcohol intake: current Lack of Transportation: No Lack of Food: Sometimes True Current Housing: I Have Housing Concerned About Future Housing: No Difficulty Paying Gas/Electric Bills: YES Difficulty Paying for Meds: YES Currently Unemployed: No Education: Bachelor's Degree Difficulty w/ Childcare or Family Care: No Living arrangements: with family Comments At time of signature, agree with nursing past medical, surgical, social and family history. There is no relevant family history pertinent to the presenting complaint Exam Narrative: GENERAL: Well-appearing, appears in pain, no acute distress. HEAD: Normocephalic EYES: PERRLA, conjunctivae clear ENT: Nares clear. Mucous membranes moist. Right TM pearly rome with dull light reflex, left TM erythematous and bulging with purulent effusion; no tragal tenderness. Oropharynx not erythematous without lesions. Tonsils not enlarged and without exudate, no drooling, no hoarseness, no trismus, uvula midline. NECK: Supple. No lymphadenopath
== END 2022-12-23 18:55 | disposition home or self-care (01) ==
PROVIDERS: Emergency Provider Nurse Practitioner Family; PCP Family Medicine
DX: H66.002 Acute suppurative otitis media without spontaneous rupture of ear drum, left ear (principal); I10 Essential (primary) hypertension; Z87.891 Personal history of nicotine dependence
CPT/HCPCS: 87081; 87880; 99213; G0463

== ENCOUNTER 2023-02-25 02:09 | Day surgery (SDC) | payer OTHER, SELFPAY ==
[2023-02-21 14:26] VITALS: BMI 46.1
--- NOTE | 2023-02-21 14:31 | PC.NURSE ---
Report to the Outpatient Waiting Room, entrance under the green pavilion located off [facility], at time _1115_ on date _[id number]_. Planned Procedure Time: _115pm_. Time changes happen often and if your time is changed the preop area will call you the afternoon before. - You and your visitor will be asked to self-screen and do not enter if you have any COVID symptoms. - A mask is optional within the hospital at this time. Patients may have clear liquids (water, carbonated beverages, clear teas, apple juice) until 3 hours prior to surgery with a maximum of 20 ounces. - No food from midnight until time of surgery Take the following medications with a SIP of water the morning of surgery: ___Buspirone and Metoprolol DO NOT STOP ANY OF YOUR OTHER PRESCRIPTION MEDICATIONS PRIOR TO SURGERY ?EXCEPT THE FOLLOWING Medications to discontinue per physician Vitamins and supplements. Date to take last kmal__[id number] Please no make-up, nail portuguese, hairspray, perfume, deodorant, or body powder the day of surgery. No jewelry (including any body piercings) or valuables the day of surgery, leave them at home. Please take a shower or bath the night before, or the morning of, surgery with an antibacterial soap. Wear comfortable, loose fitting clothing. - Jewelry must be removed prior to entering the operating room. Rings and piercings that are not removed may be cut off. - The hospital will not accept responsibility for valuables. - Please leave all valuables, including medications, at home the day of surgery. If you are going home after surgery, a licensed package delivery driver must drive you home. - NO public transportation without another adult if you receive anesthesia. - We recommend that an adult stay with you for 24 hours following discharge. - We also recommend that you do not drive, make important decision, drink alcoholic beverages, or take any drugs that were not prescribed by your health care provider for at least 24 hours after your discharge time. Follow any additional instructions given to you from your surgeon. If you or anyone in your household have experienced Covid symptoms in the past week, please notify your surgeon or the nurse liaison at the phone number below for possible testing. Telephone instructions given to _Patient__and asked if any additional questions and then verbalized understanding. Patient advised to call surgeon office or pre surgery nurse liaison [phone] if any additional questions.
--- NOTE | 2023-02-24 18:35 | P.HP_ITS ---
H&P: HPI History of Present Illness Date/Time: 02/24/23 18:35 Chief Complaint: Recurrent otitis media, chronic otitis media Narrative: Planned procedure Review of Systems Review of Systems: All systems reviewed & are unremarkable except as noted in HPI and below [facility] Past Medical History Medical History Acute gastritis Benign essential hypertension Bruxism COVID Ear itching Esophageal reflux Fibromyalgia IBS (irritable bowel syndrome) Otalgia of both ears Otitis externa of right ear Panic disorder without agoraphobia PVC (premature ventricular contraction) Surgical History Surgical History H/O dilation and curettage H/O wisdom tooth extraction H/O: section Hx of cholecystectomy Family History Family History Other Cerebrovascular accident Diabetes mellitus Family history of malignant neoplasm Hypertension Social History Social History Smoking packs per day: 1 Smoking cigarettes per day: 20.0 Years smoked: 5 Smoking pack-years: 5.00 Smoking status: Never smoker Tobacco type: cigarettes Smoking end date: 09/29/08 Alcohol intake: current Other substance usage details: Medical marijuana Lack of Transportation: No Lack of Food: Sometimes True Current Housing: I Have Housing Concerned About Future Housing: No Difficulty Paying Gas/Electric Bills: YES Difficulty Paying for Meds: YES Currently Unemployed: No Education: Bachelor's Degree Difficulty w/ Childcare or Family Care: No Living arrangements: with family Spiritual care concerns: No Meds Home Medications and Allergies Home Medications Medication Instructions Recorded Confirmed Type lisinopril 10 mg tablet 10 mg PO DAILY 10/11/22 02/21/23 History metoprolol succinate 50 mg 150 mg PO DAILY 10/11/22 02/21/23 History tablet,extended release 24 hr milnacipran 50 mg tablet (Savella) 50 mg PO BID 10/11/22 02/21/23 History triamterene 37.5 1 tablet PO DAILY 10/11/22 02/21/23 History mg-hydrochlorothiazide 25 mg tablet buspirone 15 mg tablet 15 mg PO BID #180 tabs 10/29/22 02/21/23 Rx pantoprazole 40 mg tablet,delayed 40 mg PO DAILY #90 tabs 11/29/22 02/21/23 Rx release mupirocin 2 % topical ointment 1 applic topical BID #22 grams 01/29/23 02/21/23 Rx Allergies Allergy/AdvReac Type Severity Reaction Status Date / Time amlodipine Allergy Unknown peripheral Verified 02/21/23 14:24 edema promethazine Allergy Unknown Skin Verified 02/21/23 14:24 Reaction Exam Narrative: fluid middle ears Assessment and Plan Assessment and plan (1) Chronic otitis media of both ears: Code(s): H66.93 - Otitis media, unspecified, bilateral Status: Acute Assessment and Plan: For the ears OR bilateral myringotomy tube insertion.? Risks were discussed incl uding bleeding infection cholesteatoma facial nerve paralysis persistent perforation total deafness infection caused by the tubes.? Patient voiced understanding and agreed.
[2023-02-25] VITALS (8 sets, daily range): BP systolic 104–132; BP diastolic 67–75; PULSE 74–86; RESP 14–18; TEMP 36.1–36.2; O2SAT 96–99
--- NOTE | 2023-02-25 07:19 | WPDHPUPDATE1 ---
History and Physical Update Update Date/Time: 02/25/23 07:19 History and Physical has been reviewed, including an updated exam of the patient. There are NO changes in the patient's condition. Risks, benefits, and alternatives have been discussed and questions answered. Patient agrees to proceed with procedure.
[2023-02-25] MEDS: LACTATED RINGERS 1,000 ML 30 ML IV CONT (10:30)
--- NOTE | 2023-02-25 11:06 | WPDANESEPPF ---
Anes - Initial Pre Proc Eval Procedure: Operation Date: 02/25/23 13:15 Proposed Procedures p Bilateral Myringotomy with Insertion T-Tubes - Tejas Montaño MD Date/Time: 02/25/23 11:06 Surgeon: Tejas Montaño MD Pre Op Diagnosis: Gera Chr Otitis Media Patient Data Age: 37 Gender: F Height: 1.63 m Weight: 130.4 kg Last Vital Signs Temp 36.2 C L 02/25/23 10:59 Pulse 84 02/25/23 10:59 Resp 16 02/25/23 10:59 BP 132/68 02/25/23 10:59 Pulse Ox 97 02/25/23 10:59 O2 Del Method Room Air 02/25/23 10:59 Allergies Allergy/AdvReac Type Severity Reaction Status Date / Time amlodipine Allergy Unknown peripheral Verified 02/25/23 10:29 edema promethazine Allergy Unknown Skin Verified 02/25/23 10:29 Reaction Home Medications Medication Instructions Recorded Confirmed Type lisinopril 10 mg tablet 10 mg PO DAILY 10/11/22 02/25/23 History metoprolol succinate 50 mg 150 mg PO DAILY 10/11/22 02/25/23 History tablet,extended release 24 hr milnacipran 50 mg tablet (Savella) 50 mg PO BID 10/11/22 02/25/23 History triamterene 37.5 1 tablet PO DAILY 10/11/22 02/25/23 History mg-hydrochlorothiazide 25 mg tablet buspirone 15 mg tablet 15 mg PO BID #180 tabs 10/29/22 02/25/23 Rx pantoprazole 40 mg tablet,delayed 40 mg PO DAILY #90 tabs 11/29/22 02/25/23 Rx release mupirocin 2 % topical ointment 1 applic topical BID #22 grams 01/29/23 02/21/23 Rx Laboratory Tests 02/25/23 10:43 Sodium Pending Potassium Pending Chloride Pending Carbon Dioxide Pending Anion Gap Pending BUN Pending Creatinine Pending Estim Creat Clear Calc Pending Estimated GFR Pending Glucose Pending Calcium Pending Patient hx anesthesia problems: none Family hx anesthesia problems: none Results Review: All pre-operative results and documents have been reviewed as part of the pre-operative evaluation. [facility] Past Medical History Medical History Acute gastritis Benign essential hypertension Bruxism COVID Ear itching Esophageal reflux Fibromyalgia IBS (irritable bowel syndrome) Otalgia of both ears Otitis externa of right ear Panic disorder without agoraphobia PVC (premature ventricular contraction) Surgical History Surgical History H/O dilation and curettage H/O wisdom tooth extraction H/O: section Hx of cholecystectomy Family History Family History Other Cerebrovascular accident Diabetes mellitus Family history of malignant neoplasm Hypertension Social History Social History Smoking packs per day: 1 Smoking cigarettes per day: 20.0 Years smoked: 5 Smoking pack-years: 5.00 Smoking status: Never smoker Tobacco type: cigarettes Smoking end date: 09/29/08 Alcohol intake: current Other substance usage details: Medical marijuana Lack of Transportation: No Lack of Food: Sometimes True Current Housing: I Have Housing Concerned About Future Housing: No Difficulty Paying Gas/Electric Bills: YES Difficulty Paying for Meds: YES Currently Unemployed: No Education: Bachelor's Degree Difficulty w/ Childcare or Family Care: No Living arrangements: with family Spiritual care concerns: No Anes - Eval Final PreProcedure Day of Procedure 02/25/23 11:06 Patient weight: morbidly obese Heart: regular rate and rhythm Lungs: decreased breath sounds Airway: Mallampati scale class III Neurological: alert and oriented Last oral intake: >/= 8 hours ASA classification: III Emergent: no Anesthetic plan: proceed Anesthesia type and monitoring: general LMA and standard monitoring Results Review: All pre-operative results and documents have been reviewed as p
[2023-02-25 11:34] LABS: Anion Gap 5 mmol/L (8-16); Blood Urea Nitrogen 19 mg/dL (7-17); Calcium 8.5 mg/dL (8.4-10.2); Carbon Dioxide 24 mmol/L (22-30); Chloride 104 mmol/L (98-107); Estimated CRCL calculation 126 ml/min; Estimated Glomerular Filt Rate > 60; Glucose 107 mg/dL (65-110); Potassium 4.6 mmol/L (3.4-5.0); Sodium 133 mmol/L (137-145)
[2023-02-25] MEDS: CIPROFLOXACIN HCL 0.3% OP SOLN 2.5 ML BTL 4 DROP EACH EAR (11:50)
--- NOTE | 2023-02-25 12:30 | W.PM.PROC2 ---
Procedure Note - Detailed Date of Procedure 02/25/23 Pre-op Diagnosis Gera Chr Otitis Media Post-op Diagnosis Same Procedure Performed Bilateral myringotomy T-tube insertion Surgeon Tejas Montaño MD Anesthesia General ( LMA) Indications see above Findings right-sided scant mucoid effusion left side aerated Description of Procedure patient identified consent verified preop. Patient brought back to operating. Time-out performed. General anesthesia induced LMA secured. Patient prepped draped position procedure confirmed. Second time-out performed. Oneil microscope brought in the field right-sided viewed cerumen removed. Myringotomy made some mucoid effusion. T-Tube placed drops placed left side exact same procedure except the middle ear was aerated. Patient tolerated the procedure very well and there were no complications. I performed all dictated portions blood loss about 1 cc. Care the patient given Anesthesiology patient taken to PACU. No immediate complications. Estimated Blood Loss 1 Drains No Packing No Pathology None sent Complications No immediate complications Condition Stable Disposition PACU [facility] Billing Surgery - Charge Forward: Surgery Billing
[2023-02-25] MEDS: fentaNYL CITRATE INJ (*CRX) 100 MCG/2 ML VIAL 25 MCG IV PUSH ×2 (13:00→13:08)
== END 2023-02-25 14:10 | disposition home or self-care (01) ==
PROVIDERS: PCP Family Medicine; Visit Provider Otolaryngology
PROC: (CPT 69436; principal; 2023-02-25 13:15)
DX: H66.93 Otitis media, unspecified, bilateral (principal); I10 Essential (primary) hypertension; K21.9 Gastro-esophageal reflux disease without esophagitis; M79.7 Fibromyalgia; I49.3 Ventricular premature depolarization; Z87.891 Personal history of nicotine dependence; F12.90 Cannabis use, unspecified, uncomplicated; E66.01 Morbid (severe) obesity due to excess calories; Z68.42 Body mass index [BMI] 45.0-49.9, adult
CPT/HCPCS: 69436; 36415; 80048; J1100; J2250; J2405; J2704; J3010; J7120

== ENCOUNTER 2023-06-05 08:48 | Outpatient (CLI) | payer OTHER, SELFPAY ==
[2023-06-05 19:20] LABS: Alanine Aminotransferase 59 U/L (6-35); Albumin Level 4.1 g/dL (3.5-5.1); Alkaline Phosphatase 42 U/L (38-126); Anion Gap 9 mmol/L (8-16); Aspartate Amino Transferase 41 U/L (14-36); Bilirubin,Total 0.7 mg/dL (0.2-1.3); Blood Urea Nitrogen 13 mg/dL (7-17); Calcium 8.8 mg/dL (8.4-10.2); Carbon Dioxide 22 mmol/L (22-30); Chloride 104 mmol/L (98-107); Cholesterol 182 mg/dL (0-200); Estimated Glomerular Filt Rate > 60; Glucose 123 mg/dL (65-110); HDL Direct 35 mg/dL; Sodium 135 mmol/L (137-145); Triglycerides 183 mg/dL (<150)
[2023-06-05 19:27] LABS: Basophils Absolute Auto 0.1 K/mm3 (0.0-0.1); Basophils Percent Auto 0.7 % (0.2-1.2); Eosinophils Absolute Auto 0.2 K/mm3 (0-0.3); Eosinophils Percent Auto 1.9 % (0-4.4); Hematocrit 40.6 % (37.0-47.0); Hemoglobin 13.4 g/dL (12.0-15.0); Immature Granulocyte Absolute 0.03 K/mm3 (0.00-0.031); Immature Granulocyte Percent A 0.4 % (0-0.5); Lymphocytes Absolute Auto 2.52 K/mm3 (0.9-3.2); Lymphocytes Percent Auto 29.6 % (18.3-44.2); Mean Corpuscular Hemoglobin 27.7 pg (26-34); Mean Corpuscular Volume 84.1 fl (80-100); Monocytes Absolute Auto 0.6 K/mm3 (0.1-0.6); Monocytes Percent Auto 7.2 % (2.6-8.5); Neutrophils Absolute Auto 5.1 K/mm3 (1.3-6.7); Neutrophils Percent Auto 60.2 % (45.5-73.1); Platelet Count Result 254 k/mm3 (150-375); Red Blood Count 4.83 M/mm3 (4.2-5.4); Red Cell Distribution Width 13.9 % (11.5-14.5); White Blood Count 8.5 K/mm3 (4.5-10.0)
[2023-06-05 19:31] LABS: LDL Cholesterol Direct 124 mg/dL
[2023-06-05 21:11] LABS: Hemoglobin A1C 5.8 % (<5.7)
== END 2023-06-05 08:49 | disposition home or self-care (01) ==
LOC: ANHGOSHLAB 08:50
PROVIDERS: PCP Family Medicine; Visit Provider Family Medicine
DX: R73.01 Impaired fasting glucose (principal); I10 Essential (primary) hypertension
CPT/HCPCS: 36415; 80053; 80061; 83036; 84443; 85025

== ENCOUNTER → 2023-06-30 14:04 | Outpatient (CLI) | payer OTHER, SELFPAY ==
--- NOTE | ~2023-06-30 | XR_ITS ---
XR shoulder RT min 2V DATE: 06/30/2023 14:13 INDICATION: Lump at posterior shoulder for one year. No injury. TECHNIQUE: 4 views COMPARISON: None FINDINGS: No fracture or dislocation, periosteal reaction or bone destruction or abnormal soft tissue calcification. Normal alignment at the acromioclavicular and glenohumeral joints. IMPRESSION: Negative Reviewed, dictated and finalized at location B. IMPRESSION: Negative
== END ==
PROVIDERS: PCP Family Medicine; Visit Provider Physician Assistant
DX: M25.511 Pain in right shoulder (principal)
CPT/HCPCS: 73030

== ENCOUNTER 2023-07-01 15:58 | Emergency (ER) | payer OTHER, SELFPAY ==
--- NOTE | 2023-07-01 16:06 | ED.URI ---
HPI - URI/Sore Throat General Chief Complaint: Upper Respiratory Infection Stated Complaint: sore throat,headache,dizziness,eye/ear pain Time Seen by Provider: 07/01/23 16:36 Source: patient and RN notes reviewed Mode of arrival: ambulatory Limitations: no limitations History of Present Illness HPI Narrative: 38-year-old female presents with concern for general malaise, fever, sore throat, headache, ear pain, eye pain. She reports symptoms started last night. She denies vomiting. She denies shortness of breath. MD elicited complaint: fever and sore throat Related Data Home Medications Medication Instructions Recorded Confirmed lisinopril 10 mg tablet 10 mg PO DAILY 10/11/22 07/01/23 metoprolol succinate 50 mg 150 mg PO DAILY 10/11/22 07/01/23 tablet,extended release 24 hr milnacipran 50 mg tablet (Savella) 50 mg PO BID 10/11/22 07/01/23 triamterene 37.5 1 tablet PO DAILY 10/11/22 07/01/23 mg-hydrochlorothiazide 25 mg tablet progesterone micronized 200 mg 200 mg PO DAILY 07/01/23 07/01/23 capsule Allergies Allergy/AdvReac Type Severity Reaction Status Date / Time amlodipine Allergy Unknown peripheral Verified 07/01/23 16:07 edema promethazine Allergy Unknown Skin Verified 07/01/23 16:07 Reaction nirmatrelvir [From Paxlovid] AdvReac Severe cardiac Verified 07/01/23 16:07 ritonavir [From Paxlovid] AdvReac Severe cardiac Verified 07/01/23 16:07 Review of Systems Review of Systems: CONSTITUTIONAL: Reports malaise, chills, sweats, or fever. EYES: Denies visual changes, redness, or discharge. ENT: Reports otalgia and sore throat. CARDIOVASCULAR: Denies chest pain, palpitations, or edema. RESPIRATORY: Denies cough. Denies dyspnea. GASTROINTESTINAL: Denies abdominal pain, nausea, vomiting, diarrhea SKIN: Denies rash or itching. MUSCULOSKELETAL: Denies myalgia. NEUROLOGIC: Reports headache. All systems reviewed & are unremarkable except as noted in HPI and below PMFSH Past Medical History Medical History Acute gastritis Benign essential hypertension Bruxism Chest wall pain COVID Ear itching Esophageal reflux Fibromyalgia Fungal otitis externa IBS (irritable bowel syndrome) Nasal congestion Otalgia of both ears Otitis externa of left ear Otitis externa of right ear Otorrhea, left ear Otorrhea, left ear Panic disorder without agoraphobia PVC (premature ventricular contraction) Surgical History Surgical History H/O dilation and curettage H/O wisdom tooth extraction H/O: section Hx of cholecystectomy Family History Family History Other Cerebrovascular accident Diabetes mellitus Family history of malignant neoplasm Hypertension Social History Social History (Updated 06/30/23 @ 13:43 by Cesar Morelos PA-C) Smoking packs per day: 1 Smoking cigarettes per day: 20.0 Years smoked: 5 Smoking pack-years: 5.00 Smoking status: Former smoker Tobacco type: cigarettes Smoking end date: 09/29/08 Alcohol intake: current Other substance usage details: Medical marijuana Lack of Transportation: No Lack of Food: Sometimes True Current Housing: I Have Housing Concerned About Future Housing: No Difficulty Paying Gas/Electric Bills: YES Difficulty Paying for Meds: YES Currently Unemployed: No Education: Bachelor's Degree Difficulty w/ Childcare or Family Care: No Living arrangements: with family Spiritual care concerns: No Comments At time of signature, agree with nursing past medical, surgical, social and family history. There is no relevant family history pertinent to the presenting complaint Exam Narrative: GENERAL: Nontoxic-appearing and in no acute distress. HEAD: Normocephalic EYES: PERRLA, conjunctivae clear ENT: Nares clear. Mucous membranes moist. TM pe
[2023-07-01 16:10] VITALS: BP 156/102; PULSE 94; RESP 16; TEMP 38.6; O2SAT 94
[2023-07-01 16:11] VITALS: BP 156/102; PULSE 94; RESP 16; TEMP 38.6; O2SAT 94
== END 2023-07-01 16:50 | disposition home or self-care (01) ==
PROVIDERS: Emergency Provider Nurse Practitioner; PCP Family Medicine
DX: J02.0 Streptococcal pharyngitis (principal); I10 Essential (primary) hypertension; Z87.891 Personal history of nicotine dependence; Z20.822 Contact with and (suspected) exposure to COVID-19
CPT/HCPCS: 87426; 87804; 87880; 99213; C9803; G0463

== ENCOUNTER 2023-07-03 07:56 | Outpatient (CLI) | payer OTHER, SELFPAY ==
--- NOTE | ~2023-07-03 | US_ITS ---
EXAMINATION: US axilla BI INDICATION: Bilateral axillary swelling mass and lump TECHNIQUE: Bilateral axillary ultrasound is performed. COMPARISON: 08/27/2022 FINDINGS: Normal-appearing right axillary lymph nodes are identified. There are several left axillary lymph nodes with normal morphology. One appears to demonstrate mild cortical thickening. IMPRESSION: 1. Left axillary lymph node with mild cortical thinning which could be reactive. However, sonographic follow-up in three months is recommended with ultrasound-guided biopsy recommended if persistent. Reviewed, dictated and finalized at location A. IMPRESSION: 1. Left axillary lymph node with mild cortical thinning which could be reactive . However, sonographic follow-up in three months is recommended with ultrasound -guided biopsy recommended if persistent.
== END 2023-07-03 07:57 ==
LOC: GOSHIMG 07:57
PROVIDERS: PCP Physician Assistant; Visit Provider Physician Assistant
DX: M25.511 Pain in right shoulder (principal); R22.30 Localized swelling, mass and lump, unspecified upper limb
CPT/HCPCS: 76882

== ENCOUNTER 2023-07-24 19:17 | Emergency (ER) | payer OTHER, SELFPAY ==
[2023-07-24 19:26] VITALS: BP 129/71; PULSE 80; RESP 18; TEMP 36.3; O2SAT 99
--- NOTE | 2023-07-24 19:34 | ED.FEMALEGU ---
HPI - Female Genitourinary General Chief complaint: Urogenital-Female Stated complaint: UTI/Sinus Time Seen by Provider: 07/24/23 19:37 Source: patient and RN notes reviewed Mode of arrival: ambulatory Limitations: no limitations History of Present Illness HPI Narrative: 38-year-old female presents with concern for urinary tract infection and sinus headache. She reports two day history of dysuria, frequency, urgency, bladder pressure, low back pain. She reports today she also began having a headache that she contributes to sinus inflammation and drainage. She denies fever, body aches, chills, sweats MD elicited complaint: UTI Related Data Home Medications Medication Instructions Recorded Confirmed lisinopril 10 mg tablet 10 mg PO DAILY 10/11/22 07/24/23 metoprolol succinate 50 mg 150 mg PO DAILY 10/11/22 07/24/23 tablet,extended release 24 hr milnacipran 50 mg tablet (Savella) 50 mg PO BID 10/11/22 07/24/23 triamterene 37.5 1 tablet PO DAILY 10/11/22 07/24/23 mg-hydrochlorothiazide 25 mg tablet progesterone micronized 200 mg 200 mg PO DAILY 07/01/23 07/24/23 capsule Allergies Allergy/AdvReac Type Severity Reaction Status Date / Time amlodipine Allergy Unknown peripheral Verified 07/24/23 19:26 edema promethazine Allergy Unknown Skin Verified 07/24/23 19:26 Reaction nirmatrelvir [From Paxlovid] AdvReac Severe cardiac Verified 07/24/23 19:26 ritonavir [From Paxlovid] AdvReac Severe cardiac Verified 07/24/23 19:26 Review of Systems Review of Systems: CONSTITUTIONAL: Denies malaise, chills, sweats, or fever. CARDIOVASCULAR: Denies chest pain, palpitations, or edema. HEENT: Reports sinus pressure, drainage RESPIRATORY: Denies cough or dyspnea. GASTROINTESTINAL: Denies abdominal pain, nausea, vomiting, diarrhea GENITOURINARY: Reports dysuria, frequency, urgency, suprapubic pressure. Denies flank pain or hematuria. SKIN: Denies rash or itching. MUSCULOSKELETAL: Reports low back pain. Denies myalgia. NEURO: Reports headache All systems reviewed & are unremarkable except as noted in HPI and below PMFSH Past Medical History Medical History Acute gastritis Benign essential hypertension Bruxism Chest wall pain COVID Ear itching Esophageal reflux Fibromyalgia Fungal otitis externa IBS (irritable bowel syndrome) Nasal congestion Otalgia of both ears Otitis externa of left ear Otitis externa of right ear Otorrhea, left ear Otorrhea, left ear Panic disorder without agoraphobia PVC (premature ventricular contraction) Surgical History Surgical History H/O dilation and curettage H/O wisdom tooth extraction H/O: section Hx of cholecystectomy Family History Family History Other Cerebrovascular accident Diabetes mellitus Family history of malignant neoplasm Hypertension Social History Social History (Updated 06/30/23 @ 13:43 by Cesar Morelos PA-C) Smoking packs per day: 1 Smoking cigarettes per day: 20.0 Years smoked: 5 Smoking pack-years: 5.00 Smoking status: Former smoker Tobacco type: cigarettes Smoking end date: 09/29/08 Alcohol intake: current Other substance usage details: Medical marijuana Lack of Transportation: No Lack of Food: Sometimes True Current Housing: I Have Housing Concerned About Future Housing: No Difficulty Paying Gas/Electric Bills: YES Difficulty Paying for Meds: YES Currently Unemployed: No Education: Bachelor's Degree Difficulty w/ Childcare or Family Care: No Living arrangements: with family Spiritual care concerns: No Comments At time of signature, agree with nursing past medical, surgical, social and family history. There is no relevant family history pertinent to the presenting complaint Exam Narrative: GENERAL: We
== END 2023-07-24 19:47 | disposition home or self-care (01) ==
PROVIDERS: Emergency Provider Nurse Practitioner; PCP Family Medicine
DX: R30.0 Dysuria (principal); R35.0 Frequency of micturition; R39.15 Urgency of urination; R10.30 Lower abdominal pain, unspecified; J34.89 Other specified disorders of nose and nasal sinuses; Z87.891 Personal history of nicotine dependence; F12.90 Cannabis use, unspecified, uncomplicated; I10 Essential (primary) hypertension; K21.9 Gastro-esophageal reflux disease without esophagitis; Z86.16 Personal history of COVID-19
CPT/HCPCS: 81003; 87086; 87088; 99213; G0463

== ENCOUNTER 2023-08-27 14:46 | Outpatient (CLI) | payer OTHER, SELFPAY ==
[2023-08-27 19:10] LABS: Basophils Absolute Auto 0.1 K/mm3 (0.0-0.1); Basophils Percent Auto 1.3 % (0.2-1.2); Eosinophils Absolute Auto 0.2 K/mm3 (0-0.3); Eosinophils Percent Auto 2.2 % (0-4.4); Hematocrit 42.5 % (37.0-47.0); Hemoglobin 13.9 g/dL (12.0-15.0); Immature Granulocyte Absolute 0.03 K/mm3 (0.00-0.031); Immature Granulocyte Percent A 0.3 % (0-0.5); Lymphocytes Absolute Auto 3.72 K/mm3 (0.9-3.2); Mean Corpuscular HGB Conc 32.7 g/dl (32-36); Mean Corpuscular Hemoglobin 26.9 pg (26-34); Mean Corpuscular Volume 82.4 fl (80-100); Mean Platelet Volume 10.8 fl (7.4-10.4); Monocytes Absolute Auto 0.7 K/mm3 (0.1-0.6); Monocytes Percent Auto 6.8 % (2.6-8.5); Neutrophils Absolute Auto 4.8 K/mm3 (1.3-6.7); Neutrophils Percent Auto 50.4 % (45.5-73.1); Platelet Count Result 324 k/mm3 (150-375); Red Blood Count 5.16 M/mm3 (4.2-5.4); Red Cell Distribution Width 13.5 % (11.5-14.5); White Blood Count 9.6 K/mm3 (4.5-10.0)
[2023-08-27 19:51] LABS: Alanine Aminotransferase 67 U/L (6-35); Albumin Level 4.5 g/dL (3.5-5.1); Alkaline Phosphatase 54 U/L (38-126); Anion Gap 13 mmol/L (8-16); Aspartate Amino Transferase 42 U/L (14-36); Bilirubin,Total 0.8 mg/dL (0.2-1.3); Blood Urea Nitrogen 13 mg/dL (7-17); Calcium 9.4 mg/dL (8.4-10.2); Carbon Dioxide 24 mmol/L (22-30); Chloride 100 mmol/L (98-107); Estimated Glomerular Filt Rate > 60; Glucose 132 mg/dL (65-110); Potassium 3.5 mmol/L (3.4-5.0); Sodium 137 mmol/L (137-145)
[2023-08-28 10:22] LABS: Hemoglobin A1C 5.5 % (<5.7)
== END 2023-08-27 14:47 | disposition home or self-care (01) ==
LOC: ANHGOSHLAB 14:47
PROVIDERS: PCP Family Medicine; Visit Provider Family Medicine
DX: R22.30 Localized swelling, mass and lump, unspecified upper limb (principal); R73.9 Hyperglycemia, unspecified
CPT/HCPCS: 36415; 80053; 83036; 85025

== ENCOUNTER 2023-09-04 08:24 | Outpatient (CLI) | payer OTHER, SELFPAY ==
--- NOTE | ~2023-09-04 | US_ITS ---
US axilla BI 09/04/2023 08:43 Indication: Localized swelling. Procedure: High-resolution ultrasound of the bilateral axilla Comparison: 07/03/2023 Findings: There are multiple normal-sized bilateral axillary lymph nodes all of which retain their fa tty hilum. Also in the left axilla there is an oval slightly hypoechoic vascular mass without fatty h ilum measuring 1.4 x 1.2 x 1.2 cm which may represent a pathologic lymph node. Impression: 1: Abnormal oval hypoechoic 14 mm left axillary vascular mass which may represent an atypical/patholo gic lymph node. Recommend percutaneous biopsy. Reviewed, dictated and finalized at location B. ORY CLERK Impression: 1: Abnormal oval hypoechoic 14 mm left axillary vascular mass which may represe nt an atypical/pathologic lymph node. Recommend percutaneous biopsy.
--- NOTE | ~2023-09-04 | XR_ITS ---
EXAMINATION: XR chest 2V 09/04/2023 08:46 INDICATION: Localized swelling. PROCEDURE: 2 view chest COMPARISON: Comparison to multiple prior studies sequentially, with oldest reviewed study dated 02/15. FINDINGS: The lungs are clear. The cardiomediastinal silhouette is within normal limits. There are no pleural effusions. There is no pneumothorax suspected. IMPRESSION: 1: NO ACUTE CARDIOPULMONARY DISEASE. Reviewed, dictated and finalized at location L. UCTION LINE ASSEMBLER
== END 2023-09-04 08:25 ==
PROVIDERS: PCP Family Medicine; Visit Provider Family Medicine
DX: R22.30 Localized swelling, mass and lump, unspecified upper limb (principal)
CPT/HCPCS: 71046; 76882

== ENCOUNTER 2023-09-18 16:10 | Emergency (ER) | payer OTHER, SELFPAY ==
[2023-09-18 16:15] VITALS: BP 116/66; PULSE 87; RESP 16; TEMP 36.2; O2SAT 100
--- NOTE | 2023-09-18 16:44 | ED.GENADULT ---
HPI - General Adult General Chief complaint: Ear Stated complaint: left ear pain, right ear blocked Time Seen by Provider: 09/18/23 16:44 Source: patient, RN notes reviewed and old records reviewed Mode of arrival: ambulatory Limitations: no limitations History of Present Illness HPI narrative: 38-year-old female presents to the [facility] with complaints of left ear pain, decreased hearing of the right ear. Symptoms started this morning Patient currently has tubes bilateral ears. No draining noted. States that she has had sinus congestion and her kids had flu, RSV last week, she states her symptoms for that have improved but her ear discomfort started this morning Onset (ago): hour(s) Related Data Home Medications Medication Instructions Recorded Confirmed lisinopril 10 mg tablet 10 mg PO DAILY 10/11/22 09/18/23 metoprolol succinate 50 mg 150 mg PO DAILY 10/11/22 09/18/23 tablet,extended release 24 hr milnacipran 50 mg tablet (Savella) 50 mg PO BID 10/11/22 09/18/23 triamterene 37.5 1 tablet PO DAILY 10/11/22 09/18/23 mg-hydrochlorothiazide 25 mg tablet progesterone micronized 200 mg 200 mg PO DAILY 07/01/23 09/18/23 capsule Allergies Allergy/AdvReac Type Severity Reaction Status Date / Time amlodipine Allergy Unknown peripheral Verified 09/18/23 16:43 edema promethazine Allergy Unknown Skin Verified 09/18/23 16:43 Reaction nirmatrelvir [From Paxlovid] AdvReac Severe cardiac Verified 09/18/23 16:43 ritonavir [From Paxlovid] AdvReac Severe cardiac Verified 09/18/23 16:43 Review of Systems Review of Systems: All systems reviewed & are unremarkable except as noted in HPI and below Constitutional: Constitutional: Reports no additional constitutional complaints Eyes: Eyes: Reports no additional eye complaints ENT: Reports as per HPI Cardiovascular: Cardiovascular: Reports no additional cardiovascular complaints, Denies chest pain and Denies dyspnea Respiratory: Respiratory: Reports no additional respiratory complaints, Denies chest congestion, Denies cough and Denies dyspnea Gastrointestinal: Gastrointestinal: Reports no additional gastrointestinal complaints, Denies abdominal pain, Denies nausea and Denies vomiting Musculoskeletal: Musculoskeletal: Reports no additional musculoskeletal complaints Integumentary/Breasts: Skin/Breast: Reports system reviewed and no additional complaints, except as docu Neurologic: Reports system reviewed and no additional complaints, except as documented Psychiatric: Psychiatric: Reports no additional psychiatric complaints Allergic/Immunologic: Allergic/Immunologic: Reports no additional allergic/immunologic complaints [facility] Past Medical History Medical History Acute gastritis Benign essential hypertension Bruxism Chest wall pain COVID Ear itching Esophageal reflux Fibromyalgia Fungal otitis externa IBS (irritable bowel syndrome) Nasal congestion Otalgia of both ears Otitis externa of left ear Otitis externa of right ear Otorrhea, left ear Otorrhea, left ear Panic disorder without agoraphobia PVC (premature ventricular contraction) Surgical History Surgical History (Updated 09/18/23 @ 16:49 by Valentine Ocasio APRN) H/O dilation and curettage H/O wisdom tooth extraction H/O: section History of placement of ear tubes Hx of cholecystectomy Family History Family History Other Cerebrovascular accident Diabetes mellitus Family history of malignant neoplasm Hypertension Social History Social History Smoking packs per day: 1 Smoking cigarettes per day: 20.0 Years smoked: 5 Smoking pack-years: 5.00 Smoking status: Former smoker Tobacco type: cigarettes Smoking end date: 09/29/08 Alcohol intake: current Alcohol use details: occasionally Substance use
== END 2023-09-18 16:55 | disposition home or self-care (01) ==
PROVIDERS: Emergency Provider Nurse Practitioner; PCP Family Medicine
DX: H92.02 Otalgia, left ear (principal); I10 Essential (primary) hypertension; Z79.899 Other long term (current) drug therapy; Z87.891 Personal history of nicotine dependence
CPT/HCPCS: 99211; G0463

== ENCOUNTER 2023-10-09 09:51 | Outpatient (CLI) | payer OTHER, SELFPAY ==
--- NOTE | ~2023-10-09 | US_ITS ---
EXAMINATION: US_BXSTAXLIMG_US DATE: 10/09/2023 11:26 INDICATION: Left axillary lymphadenopathy. TECHNIQUE: The procedure including the risks, benefits, and alternatives was discussed with the patie nt. Risks discussed included bleeding and infection. The patient understood the risks and agreed to p roceed. The skin overlying the left axilla was prepped and draped in usual sterile fashion. Anesthet ic was administered with 1% lidocaine subcutaneously. An 18 gauge core biopsy needle was then used t o obtain 4 core biopsy specimens under continuous sonographic guidance. The entry site was cleaned an d dressed. There were no immediate complications. FINDINGS: Ultrasound images demonstrate the needle in a 14 x 11 x 10 mm left axillary lymph node. IMPRESSION: 1. Ultrasound-guided core needle biopsy of a left axillary lymph node. Reviewed, dictated and finalized at location A. ERENTIAL SPECIALIST
== END 2023-10-09 09:52 | disposition home or self-care (01) ==
LOC: ANHIMG 09:52
PROVIDERS: PCP Family Medicine; Visit Provider Surgery
DX: R93.89 Abnormal findings on diagnostic imaging of other specified body structures (principal); M79.629 Pain in unspecified upper arm
CPT/HCPCS: 20999; 76942; 88305

== ENCOUNTER 2023-12-02 12:08 | Emergency (ER) | payer OTHER, SELFPAY ==
--- NOTE | ~2023-12-02 | CT_ITS ---
EXAMINATION: CT abd pelvis lumbar w con DATE: 12/02/2023 18:23 INDICATION: RLQ pain, back and leg pain TECHNIQUE: Computed tomography (CT) of the abdomen and pelvis and lumbar spine was performed with 100 mL Omnipaque-350 intravenous contrast. Automated exposure control and iterative reconstruction techn ique were employed. The dose-length product was 1556.54 mGy-cm. COMPARISON: CT abdomen pelvis 06/04/2016. FINDINGS: Lower thorax: Unremarkable Liver: Enlarged. Diffuse fatty infiltration. Biliary/Gallbladder: Gallbladder is absent. No intrahepatic duct dilation. Mild extrahepatic duct dil ation likely secondary to cholecystectomy. Pancreas: No mass or duct dilation. Spleen: Normal. Adrenals:No mass. Kidneys: No suspicious mass, obstructing stone, or hydronephrosis. GI tract: Mild distal esophageal and gastric wall edema No small or large bowel dilation. Normal appe ndix. Mesentery/Peritoneum: No ascites, mass, or free air. Retroperitoneum: No mass. Pelvis: Normal urinary bladder. Exophytic calcified uterine fibroids. Normal ovaries. Soft Tissues: Soft tissues and body wall unremarkable. Bones: No acute osseous finding. LUMBAR SPINE: 5 nonrib-bearing lumbar-type vertebral bodies. Pedicles intact. Normal vertebral body alignment. Vert ebral body heights preserved. Mild multilevel degenerative disc disease. Mild multilevel facet arthro tracie. IMPRESSION: Mild esophagitis/gastritis. Hepatomegaly and steatosis. Uterine fibroids. No acute osseous finding in the lumbar spine. No severe central canal or neural foraminal narrowing. Reviewed, dictated and finalized at location K. N PERSON
[2023-12-02 12:28] VITALS: BP 158/98; PULSE 83; RESP 16; TEMP 36.4; O2SAT 97
--- NOTE | 2023-12-02 14:08 | ED.GENADULT ---
HPI - General Adult General Chief complaint: Unspecified Stated complaint: abdominal pain, leg tingling Related Data Home Medications Medication Instructions Recorded Confirmed lisinopril 10 mg tablet 10 mg PO DAILY 10/11/22 09/21/23 metoprolol succinate 50 mg 150 mg PO DAILY 10/11/22 09/21/23 tablet,extended release 24 hr milnacipran 50 mg tablet (Savella) 50 mg PO BID 10/11/22 09/21/23 progesterone micronized 200 mg 200 mg PO DAILY 07/01/23 09/21/23 capsule Allergies Allergy/AdvReac Type Severity Reaction Status Date / Time amlodipine Allergy Unknown peripheral Verified 09/19/23 08:28 edema promethazine Allergy Unknown Skin Verified 09/19/23 08:28 Reaction nirmatrelvir [From Paxlovid] AdvReac Severe cardiac Verified 09/19/23 08:28 ritonavir [From Paxlovid] AdvReac Severe cardiac Verified 09/19/23 08:28 [facility] Past Medical History Medical History Acute gastritis Benign essential hypertension Bruxism Chest wall pain COVID Ear itching Esophageal reflux Fibromyalgia Fungal otitis externa IBS (irritable bowel syndrome) Nasal congestion Otalgia of both ears Otitis externa of left ear Otitis externa of right ear Otorrhea, left ear Otorrhea, left ear Panic disorder without agoraphobia PVC (premature ventricular contraction) Surgical History Surgical History H/O dilation and curettage H/O wisdom tooth extraction H/O: section History of placement of ear tubes Hx of cholecystectomy Family History Family History Other Cerebrovascular accident Diabetes mellitus Family history of malignant neoplasm Hypertension Social History Social History Smoking packs per day: 1 Smoking cigarettes per day: 20.0 Years smoked: 5 Smoking pack-years: 5.00 Smoking status: Former smoker Tobacco type: cigarettes Smoking end date: 09/29/08 Alcohol intake: current Alcohol use details: occasionally Substance use: current Substance use type: marijuana Other substance usage details: Medical marijuana Lack of Transportation: No Lack of Food: Sometimes True Current Housing: I Have Housing Concerned About Future Housing: No Difficulty Paying Gas/Electric Bills: YES Difficulty Paying for Meds: YES Currently Unemployed: No Education: Bachelor's Degree Difficulty w/ Childcare or Family Care: No Living arrangements: with family Spiritual care concerns: No Course Vital Signs Vital signs: Vital Signs Temperature 36.4 C L 12/02/23 12:28 Pulse Rate 83 12/02/23 12:28 Respiratory Rate 16 12/02/23 12:28 Blood Pressure 158/98 H 12/02/23 12:28 Pulse Oximetry 97 12/02/23 12:28 Oxygen Delivery Room Air 12/02/23 12:28 Temperature 36.4 C L 12/02/23 12:28 Pulse Rate 83 12/02/23 12:28 Respiratory Rate 16 12/02/23 12:28 Blood Pressure 158/98 H 12/02/23 12:28 Pulse Oximetry 97 12/02/23 12:28 Oxygen Delivery Room Air 12/02/23 12:28 Medical Decision Making Vital Signs Vital Signs: Vital Signs Temperature 36.4 C L 12/02/23 12:28 Pulse Rate 83 12/02/23 12:28 Respiratory Rate 16 12/02/23 12:28 Blood Pressure 158/98 H 12/02/23 12:28 Pulse Oximetry 97 12/02/23 12:28 Oxygen Delivery Room Air 12/02/23 12:28 Temperature 36.4 C L 12/02/23 12:28 Pulse Rate 83 12/02/23 12:28 Respiratory Rate 16 12/02/23 12:28 Blood Pressure 158/98 H 12/02/23 12:28 Pulse Oximetry 97 12/02/23 12:28 Oxygen Delivery Room Air 12/02/23 12:28 Discharge Plan Discharge Prescriptions: No Action metoprolol succinate 50 mg tablet extended release 24 hr 150 mg PO DAILY lisinopril 10 mg tablet 10 mg PO DAILY Savella 50 mg tablet 50 mg PO BID progesterone micronized
[2023-12-02 16:56] VITALS: BP 155/95; PULSE 97; RESP 20; O2SAT 99
--- NOTE | 2023-12-02 17:16 | ED.GENADULT ---
HPI - General Adult General Chief complaint: Unspecified Stated complaint: abdominal pain, leg tingling Time Seen by Provider: 12/02/23 16:17 History of Present Illness HPI narrative: 8-year-old female with a history of diabetes, morbid obesity, fibromyalgia, IBS meds to the emergency department for multiple medical complaints. Patient states last night she developed upper thigh pain she describes as tingling, numbness and sharp pains. States that encompasses her entire thighs and radiates down all the way to her feet. She states she woke up this morning and now she has pain throughout her abdomen, worse in the right lower quadrant. She reports decreased appetite and nausea. States she started her period this morning is steam presser than usual. States she has never had pain like this before. She reports a history of sciatica but states this does not feel like sciatica. She denies fever, vomiting, diarrhea, recent injury trauma, saddle anesthesia. Prior abdominal surgeries consisted of cholecystectomy and . Patient is also reporting pain in her right ear that started yesterday. She has tympanostomy tubes in place for recurrent ear infections. Related Data Home Medications Medication Instructions Recorded Confirmed lisinopril 10 mg tablet 10 mg PO DAILY 10/11/22 09/21/23 metoprolol succinate 50 mg 150 mg PO DAILY 10/11/22 09/21/23 tablet,extended release 24 hr milnacipran 50 mg tablet (Savella) 50 mg PO BID 10/11/22 09/21/23 progesterone micronized 200 mg 200 mg PO DAILY 07/01/23 09/21/23 capsule Allergies Allergy/AdvReac Type Severity Reaction Status Date / Time amlodipine Allergy Unknown peripheral Verified 09/19/23 08:28 edema promethazine Allergy Unknown Skin Verified 09/19/23 08:28 Reaction nirmatrelvir [From Paxlovid] AdvReac Severe cardiac Verified 09/19/23 08:28 ritonavir [From Paxlovid] AdvReac Severe cardiac Verified 09/19/23 08:28 Review of Systems Review of Systems: CONSTITUTIONAL: Denies fever, chills, or sweats. EYES: Denies visual changes, redness, or discharge. ENT: Denies rhinorrhea, congestion, sore throat, or otalgia. CARDIOVASCULAR: Denies chest pain, palpitations, or edema. RESPIRATORY: Denies cough or dyspnea. GASTROINTESTINAL: See HPI GENITOURINARY: Denies dysuria or hematuria. SKIN: Denies rash or itching. MUSCULOSKELETAL: See HPI NEUROLOGIC: Denies headache, numbness, or weakness. PSYCHIATRIC: Denies anxiety or depression. [facility] Past Medical History Medical History Acute gastritis Benign essential hypertension Bruxism Chest wall pain COVID Ear itching Esophageal reflux Fibromyalgia Fungal otitis externa IBS (irritable bowel syndrome) Nasal congestion Otalgia of both ears Otitis externa of left ear Otitis externa of right ear Otorrhea, left ear Otorrhea, left ear Panic disorder without agoraphobia PVC (premature ventricular contraction) Surgical History Surgical History H/O dilation and curettage H/O wisdom tooth extraction H/O: section History of placement of ear tubes Hx of cholecystectomy Family History Family History Other Cerebrovascular accident Diabetes mellitus Family history of malignant neoplasm Hypertension Social History Social History Smoking packs per day: 1 Smoking cigarettes per day: 20.0 Years smoked: 5 Smoking pack-years: 5.00 Smoking status: Former smoker Tobacco type: cigarettes Smoking end date: 09/29/08 Alcohol intake: current Alcohol use details: occasionally Substance use: current Substance use type: marijuana Other substance usage details: Medical marijuana Lack of Transportation: No Lack of Food: Sometimes True Current Housing: I Have Housing Concer
[2023-12-02] MEDS: ONDANSETRON INJ 4 MG/2 ML VIAL IV PUSH (17:26)
[2023-12-02] MEDS: ACETAMINOPHEN 500 MG TABLET 1000 MG PO (17:26)
[2023-12-02] MEDS: SODIUM CHLORIDE 0.9% IV 1,000 ML 999 ML IV CONT (17:27)
[2023-12-02 17:44] LABS: Basophils Absolute Auto 0.1 K/mm3 (0.0-0.1); Basophils Percent Auto 0.9 % (0.2-1.2); Eosinophils Absolute Auto 0.2 K/mm3 (0-0.3); Eosinophils Percent Auto 2.1 % (0-4.4); Hemoglobin 14.5 g/dL (12.0-15.0); Immature Granulocyte Absolute 0.04 K/mm3 (0.00-0.031); Immature Granulocyte Percent A 0.4 % (0-0.5); Lymphocytes Absolute Auto 3.11 K/mm3 (0.9-3.2); Lymphocytes Percent Auto 29.9 % (18.3-44.2); Mean Corpuscular HGB Conc 34.5 g/dl (32-36); Mean Corpuscular Hemoglobin 27.9 pg (26-34); Mean Corpuscular Volume 80.9 fl (80-100); Mean Platelet Volume 10.4 fl (7.4-10.4); Monocytes Absolute Auto 0.7 K/mm3 (0.1-0.6); Monocytes Percent Auto 6.4 % (2.6-8.5); Neutrophils Absolute Auto 6.3 K/mm3 (1.3-6.7); Neutrophils Percent Auto 60.3 % (45.5-73.1); Platelet Count Result 296 k/mm3 (150-375); Red Blood Count 5.19 M/mm3 (4.2-5.4); Red Cell Distribution Width 13.9 % (11.5-14.5); White Blood Count 10.4 K/mm3 (4.5-10.0)
[2023-12-02 18:01] LABS: Lactic Acid Reflex 2.2 mmol/L (0.7-2.0)
[2023-12-02 18:02] LABS: Alanine Aminotransferase 61 U/L (6-35); Albumin Level 4.4 g/dL (3.5-5.1); Alkaline Phosphatase 41 U/L (38-126); Anion Gap 10 mmol/L (8-16); Aspartate Amino Transferase 38 U/L (14-36); Bilirubin,Total 1.6 mg/dL (0.2-1.3); Blood Urea Nitrogen 9 mg/dL (7-17); Calcium 9.4 mg/dL (8.4-10.2); Carbon Dioxide 24 mmol/L (22-30); Chloride 102 mmol/L (98-107); Creatine Kinase 134 U/L (30-135); Estimated CRCL calculation 137 ml/min; Estimated Glomerular Filt Rate > 60; Glucose 146 mg/dL (65-110); Lipase 106 U/L (23-300); Magnesium 2.1 mg/dL (1.6-2.3); Potassium 3.3 mmol/L (3.4-5.0); Sodium 136 mmol/L (137-145)
[2023-12-02 18:05] LABS: Bacteria Urine 1+ /hpf; Non Pathogenic Casts 0-2; RBC Urine >100 /hpf (0-2); Squamous Epithelial Cell Urine None seen /hpf (Few); WBC Urine >100 /hpf
[2023-12-02 18:26] LABS: Appearance Urine Cloudy (Clear); Bilirubin Urine Negative (Negative); Blood Urine 3+ (Negative); Color Urine Red (Yellow); Glucose Urine UA Negative (Negative); Ketones Urine Negative (Negative); Leukocyte Esterase Ur 3+ LEU/UL (Negative); Nitrate Urine Negative (Negative); Protein Urine 2+ mg/dL (Negative); Specific Grav Ur 1.011 (1.001-1.035); Urobilinogen Urine 0.2 mg/dL (<2.0)
[2023-12-02] MEDS: POTASSIUM CHLORIDE 20 MEQ PACKET (FOR LIQUID) PO (18:58)
[2023-12-02 19:17] VITALS: PULSE 72; RESP 17; O2SAT 99
[2023-12-02 20:12] LABS: Add Urine Microscopic? YES
[2023-12-02] MEDS: CEPHALEXIN 500 MG CAPSULE PO (20:22)
[2023-12-02] MEDS: KETOROLAC 30 MG/ML VIAL (*BKC) IV PUSH (20:22)
[2023-12-02 20:31] VITALS: BP 150/77; PULSE 77; RESP 20; TEMP 36.6; O2SAT 100
[2023-12-02 20:40] LABS: Reflex Lactic Acid Yes or No Add Lactic
== END 2023-12-02 20:32 | disposition home or self-care (01) ==
PROVIDERS: Emergency Provider Physician Assistant; PCP Family Medicine
DX: N30.01 Acute cystitis with hematuria (principal); M79.652 Pain in left thigh; M79.651 Pain in right thigh; I10 Essential (primary) hypertension; E11.9 Type 2 diabetes mellitus without complications; E66.01 Morbid (severe) obesity due to excess calories; Z68.42 Body mass index [BMI] 45.0-49.9, adult; M79.7 Fibromyalgia; K21.9 Gastro-esophageal reflux disease without esophagitis; K58.9 Irritable bowel syndrome, unspecified; Z86.16 Personal history of COVID-19; Z90.49 Acquired absence of other specified parts of digestive tract; Z79.84 Long term (current) use of oral hypoglycemic drugs
CPT/HCPCS: 36415; 72132; 74177; 80053; 81001; 81025; 82550; 83605; 83690; 83735; 85025; 87086; 87088; 96361; 96374; 96375; 99284; A9270; J1885; J2405; J7030; Q9967

== ENCOUNTER 2023-12-23 08:26 | Outpatient (CLI) | payer OTHER, SELFPAY ==
[2023-12-23 09:11] LABS: INR 0.9; Prothrombin Time 12.5 Seconds (11.1-14.7)
[2023-12-23 09:12] LABS: Partial Thromboplastin Time 34.4 Seconds (22.3-36.8)
== END 2023-12-23 08:27 | disposition home or self-care (01) ==
LOC: ANHSURGERY 08:29
PROVIDERS: Anesthesiology; PCP Family Medicine; Visit Provider Obstetrics & Gynecology
DX: N92.0 Excessive and frequent menstruation with regular cycle (principal); K76.0 Fatty (change of) liver, not elsewhere classified
CPT/HCPCS: 36415; 85610; 85730; 86850; 86900; 86901

== ENCOUNTER 2023-12-24 03:53 | Day surgery (SDC) | payer OTHER, SELFPAY ==
--- NOTE | 2023-12-22 08:48 | PC.NURSE ---
Report to the Outpatient Waiting Room, entrance under the green pavilion located off [facility], at time 10:00 on date 12/24/23. Planned Procedure Time: 12:00. Time changes happen often and if your time is changed the preop area will call you the afternoon before. - You and your visitor will be asked to self-screen and do not enter if you have any COVID symptoms. - A mask is optional within the hospital at this time. Patients may have clear liquids (water, carbonated beverages, clear teas, apple juice) until 3 hours prior to surgery (9:00) with a maximum of 20 ounces. - No food from midnight until time of surgery Take the following medications with a SIP of water the morning of surgery: BUSPIRONE, METOPROLOL, SAVELLA DO NOT STOP ANY OF YOUR OTHER PRESCRIPTION MEDICATIONS PRIOR TO SURGERY ?EXCEPT THE FOLLOWING Medications to discontinue per physician: VITAMINS/SUPPLEMENTS Date to take last dose: NO MORE UNTIL AFTER SURGERY Please no make-up, nail chadian, hairspray, perfume, deodorant, or body powder the day of surgery. No jewelry (including any body piercings) or valuables the day of surgery, leave them at home. Please take a shower or bath the night before, or the morning of, surgery with an antibacterial soap. Wear comfortable, loose fitting clothing. - Jewelry must be removed prior to entering the operating room. Rings and piercings that are not removed may be cut off. - The hospital will not accept responsibility for valuables. - Please leave all valuables, including medications, at home the day of surgery. If you are going home after surgery, a licensed p d driver must drive you home. - NO public transportation without another adult if you receive anesthesia. - We recommend that an adult stay with you for 24 hours following discharge. - We also recommend that you do not drive, make important decision, drink alcoholic beverages, or take any drugs that were not prescribed by your health care provider for at least 24 hours after your discharge time. Follow any additional instructions given to you from your surgeon. If you or anyone in your household have experienced Covid symptoms in the past week, please notify your surgeon or the nurse liaison at the phone number below for possible testing. Telephone instructions given to PT Yolanda WHEELER and asked if any additional questions and then verbalized understanding. Patient advised to call surgeon office or pre surgery nurse liaison [phone] if any additional questions.
[2023-12-22 08:49] VITALS: BMI 48.1
[2023-12-24] VITALS (13 sets, daily range): BP systolic 128–162; BP diastolic 75–103; PULSE 86–110; RESP 12–20; TEMP 36–36.7; O2SAT 96–100
[2023-12-24] MEDS: LACTATED RINGERS 1,000 ML 30 ML IV CONT ×2 (08:55→13:02)
[2023-12-24] MEDS: ACETAMINOPHEN 500 MG TABLET 1000 MG PO (08:56)
[2023-12-24] MEDS: KETOROLAC 15 MG/ML VIAL (*BKC) IV PUSH (08:56)
[2023-12-24 09:00] LABS: Glucose Point of Care 115 mg/dl (65-105)
--- NOTE | 2023-12-24 09:33 | WPDANESEPPF ---
Anes - Initial Pre Proc Eval Procedure: Operation Date: 12/24/23 10:00 Proposed Procedures p Total Laparoscopic Hysterectomy with Bilateral Salpingo-oophorectomy - Indra Rick MD Date/Time: 12/24/23 09:33 Surgeon: Indra Rick MD Pre Op Diagnosis: Menorrhagia Patient Data Age: 38 Gender: F Height: 1.63 m Weight: 126.4 kg Last Vital Signs Temp 36.1 C L 12/24/23 08:18 Pulse 110 H 12/24/23 08:18 Resp 18 12/24/23 08:18 BP 128/86 12/24/23 08:18 Pulse Ox 98 12/24/23 08:18 O2 Del Method Room Air 12/24/23 08:18 Allergies Allergy/AdvReac Type Severity Reaction Status Date / Time amlodipine Allergy Unknown peripheral Verified 12/22/23 08:45 edema promethazine Allergy Unknown Skin Verified 12/22/23 08:45 Reaction nirmatrelvir [From Paxlovid] AdvReac Severe cardiac Verified 12/22/23 08:45 ritonavir [From Paxlovid] AdvReac Severe cardiac Verified 12/22/23 08:45 Home Medications Medication Instructions Recorded Confirmed Type lisinopril 10 mg tablet 10 mg PO DAILY 10/11/22 12/24/23 History metoprolol succinate 50 mg 150 mg PO DAILY 10/11/22 12/24/23 History tablet,extended release 24 hr milnacipran 50 mg tablet (Savella) 50 mg PO BID 10/11/22 12/24/23 History clobetasol 0.05 % scalp solution 1 applic topical DAILY #50 mL 05/20/23 12/24/23 Rx progesterone micronized 200 mg 200 mg PO DAILY 07/01/23 12/24/23 History capsule buspirone 15 mg tablet See Rx Instructions PO .COMPLEX 08/27/23 12/24/23 Rx #360 tabs metformin 500 mg tablet,extended 500 mg PO DAILY #90 tabs 08/27/23 12/24/23 Rx release 24hr (osmotic) eletriptan 20 mg tablet (Relpax) See Rx Instructions PO .COMPLEX 08/28/23 12/24/23 Rx #10 tabs triamterene 37.5 1 tablet PO DAILY #90 tabs 10/09/23 12/24/23 Rx mg-hydrochlorothiazide 25 mg tablet pantoprazole 40 mg tablet,delayed 40 mg PO DAILY #90 tabs 11/13/23 12/24/23 Rx release ibuprofen 800 mg tablet 800 mg PO TID PRN pain #20 tabs 12/02/23 12/24/23 Rx ondansetron 4 mg disintegrating 4 mg PO Q8H #14 tabs 12/02/23 12/24/23 Rx tablet multivitamin 1 tablet PO DAILY 12/22/23 12/24/23 History Laboratory Tests 12/24/23 08:55 POC Capillary Glucose 115 H mg/dl (65-105) Patient hx anesthesia problems: none Family hx anesthesia problems: none Results Review: All pre-operative results and documents have been reviewed as part of the pre-operative evaluation. [facility] Past Medical History Medical History Acute gastritis Benign essential hypertension Bruxism Chest wall pain COVID Ear itching Esophageal reflux Fibromyalgia Fungal otitis externa IBS (irritable bowel syndrome) Nasal congestion Otalgia of both ears Otitis externa of left ear Otitis externa of right ear Otorrhea, left ear Otorrhea, left ear Panic disorder without agoraphobia PVC (premature ventricular contraction) Surgical History Surgical History H/O dilation and curettage H/O wisdom tooth extraction H/O: section History of placement of ear tubes Hx of cholecystectomy Family History Family History Other Cerebrovascular accident Diabetes mellitus Family history of malignant neoplasm Hypertension Social History Social History Smoking packs per day: 1 Smoking cigarettes per day: 20.0 Years smoked: 5 Smoking pack-years: 5.00 Smoking status: Former smoker Tobacco type: cigarettes Smoking end date: 09/29/03 Alcohol intake: never Alcohol use details: occasionally Substance use: current Substance use type: marijuana Other substance usage details: EDIBLES Lack of Transportation: No Lack of Food: Sometimes True Current Housing: I Have Housing Concerned About Future Housing: No Difficulty Paying Gas/El
--- NOTE | 2023-12-24 09:36 | WPDHPUPDATE1 ---
History and Physical Update Update Date/Time: 12/24/23 09:36 History and Physical has been reviewed, including an updated exam of the patient. There are NO changes in the patient's condition. Risks, benefits, and alternatives have been discussed and questions answered. Patient agrees to proceed with procedure.
[2023-12-24] MEDS: ceFAZolin SODIUM 1 GM VIAL (10:00)
[2023-12-24] MEDS: ceFAZolin 3 GM/D5W 100 ML 100 ML IVPB (10:00)
--- NOTE | 2023-12-24 12:38 | SUR.OPER ---
new martin catheter inserted by Jacy Andrade CREDIT UNDERWRITER at [id number]
[2023-12-24 13:08] LABS: Glucose Point of Care 148 mg/dl (65-105)
--- NOTE | 2023-12-24 13:10 | W.PM.PROC2 ---
Procedure Note - Detailed Date of Procedure 12/24/23 Pre-op Diagnosis Menorrhagia Post-op Diagnosis Same Procedure Performed Total laparoscopic hysterectomy and bilateral salpingo-oophorectomy. Surgeon Indra Rick MD Anesthesia General Findings Enlarged fibroid uterus, large ovaries, normal-appearing vulva , vagina, and cervix. Description of Procedure This patient was taken to the operating room. She was prepped and draped in the dorsal lithotomy position after induction of general anesthesia. The uterine manipulator and Shane cup were placed. This was done with a speculum and tenaculum. The speculum was placed. The cervix was grasped with a tenaculum. The stay sutures were placed at 3 and 9:00 a.m.. The stay sutures of 0 Vicryl were brought through the appropriately sized Shane cup. The tip of the JACOB manipulator was placed in the intrauterine cavity. The cup was slid into place around the cervix and into the fornices. It was locked into place. The sutures were then wrapped around the handle and tied under tension. A 5 mm skin incision was made in the left upper quadrant the abdomen. A 5 mm trocar was inserted into the intrauterine cavity under direct visualization of the scope. Pneumoperitoneum was achieved. A left lower quadrant 11 mm incision was made with scalpel. An 11 mm trocar was inserted into the anterior abdominal cavity under direct visualization the scope. A 5 mm infraumbilical incision was made with a scalpel and a 5 mm trocar was inserted the intra-abdominal cavity under direct visualization of the scope. Bilateral ureteral lysis was performed. This was done from the pelvic brim down to the uterine artery. This was done with careful dissection using sharp and blunt dissection. The infundibulopelvic ligaments were isolated after identification of the ureters bilaterally. These infundibulopelvic ligaments were cauterized and transected with LigaSure cautery. The para ovarian tissue was cauterized and transected with LigaSure cautery bilaterally. Moving around the ovary into the broad ligament the tissue was cauterized transected with LigaSure cautery. The round ligaments were cauterized transected with LigaSure cautery this was all done in a bilateral fashion. In a stepwise fashion along the lateral aspects of the uterus the round ligament and broad ligaments were cauterized transected down to the level of the uterine arteries. A bladder flap was created in the bladder was moved distally to the end of the cervix and over the Shane cup. The bilateral uterine arteries were cauterized and transected. Colpotomy was then performed. In a circumferential fashion the vagina was transected using unipolar cautery. The incision was made down on the Shane cup. The uterus, cervix, fallopian tubes and ovaries were taken out through the vagina. A pneumo occluder was placed in the vagina. The vaginal cuff was closed with a 0 V lock suture in a running fashion. The pelvis was irrigated with copious amounts antibiotic irrigation. The ureters were again examined and found to be intact and flowing freely under the uterine arteries into the bladder. Cystoscopy was performed. The cystoscope was inserted in the ureteral orifices were examined. methylene blue had been previously given was seen to egress from both ureteral orifices. The bladder was intact . The cystoscope was withdrawn. The vagina was irrigated with Betadine solution after removal of the Pneumo occluder. The patient was taken to recovery room. She was stable condition. Sponge lap and needle counts were correct x2. Estimated Blood Loss 125 Drains Yes Packing No Pathology Yes Complications No immediate complications Condition Stable Disposition Floor
[2023-12-24] MEDS: fentaNYL CITRATE INJ (*CRX) 100 MCG/2 ML VIAL 25 MCG IV PUSH ×7 (13:12→14:03)
[2023-12-24] MEDS: LABETALOL HCL INJ 100 MG/20 ML VIAL 10 MG IV PUSH (13:28)
[2023-12-24] MEDS: HYDROmorphone HCL INJ (*CRX) 1 MG/ML SYR 0.5 MG IV PUSH ×4 (14:12→14:27)
[2023-12-24] MEDS: HYDROcodone/acetaminophen (*CRX) 10-325 MG TABLET 1 TAB PO ×3 (14:53→22:24)
[2023-12-24] MEDS: DEXTROSE 5%/0.45% SOD CHL 1,000 ML 125 ML IV CONT ×2 (15:00→20:02)
[2023-12-24] MEDS: KETOROLAC 30 MG/ML VIAL (*BKC) IV PUSH ×2 (16:30→23:45)
[2023-12-24] MEDS: diphenhydrAMINE HCl CAP 25 MG CAPSULE PO (16:30)
[2023-12-24] MEDS: DOCUSATE SODIUM 100 MG CAPSULE PO (16:30)
[2023-12-24] MEDS: SIMETHICONE 80 MG TAB.CHEW PO ×2 (16:30→19:20)
--- NOTE | 2023-12-24 17:40 | PC.NURSE ---
Called Dr Rick at 1715 to notify him that the pt has only had 50-60ml of urine output. The pt has also complained of pain at a level of 6-9 out of 10 (she reported it ranges) at the time of her pain reassessment at 1700. RN has given Herald 10 at 1453 and Tor[address] at 1630. Dr Rick Called back at 1744 and gave an order for a 500 ML bolus of her IV fluids running, and he ordered Dilaudid 1mg to be administered Q3 hours as needed.
[2023-12-24] MEDS: HYDROmorphone HCL INJ (*CRX) 1 MG/ML SYR IV PUSH ×2 (17:55→21:15)
--- NOTE | 2023-12-24 18:47 | OBPPTRN ---
Patient transferred to post room #289 via bed at 1436. Support person present. Oriented to unit, room, information board, rooming in, admission packet and security measures. Patient verbalizes understanding.
--- NOTE | 2023-12-24 19:03 | PC.NURSE ---
1903- Discussed with patient plan of care for the evening including rest, pain management, encouraged fluids by mouth to increase urine output, and okayed to advance from liquid diet to full/regular diet. Discussed with patient to order a light supper and listen to her body in order to avoid nausea/ stomach pain.
--- NOTE | 2023-12-24 21:30 | PC.NURSE ---
2129- Discussed with patient plan to D/C catheter per order and encouraged patient to try soon with assistance sitting up at the edge of the bed to get moving. patient stated that sounds like a morning problem, i am in too much pain to get out of bed Patient medicated at 2114 with 1mg of dilauded. 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
[2023-12-25] VITALS (7 sets, daily range): BP systolic 117–148; BP diastolic 70–88; PULSE 94–116; RESP 16–22; TEMP 36.9–37; O2SAT 97–100
[2023-12-25] MEDS: HYDROmorphone HCL INJ (*CRX) 1 MG/ML SYR IV PUSH ×2 (00:25→03:30)
--- NOTE | 2023-12-25 03:11 | PC.NURSE ---
Called to patient room with complaints of gas pain. Discussed with patient that Mylicon is only ordered TID with meals and encouraged patient to drink plenty of fluids and that I can assist with sitting up at bedside or walking at bedside to get gas moving. Patient refused at this time and stated My day shift nurse said I should stay in bed as long as I can possibly stand it
[2023-12-25] MEDS: SIMETHICONE 80 MG TAB.CHEW PO ×2 (03:25→09:58)
[2023-12-25] MEDS: KETOROLAC 30 MG/ML VIAL (*BKC) IV PUSH ×2 (05:45→11:32)
--- NOTE | 2023-12-25 08:00 | WPDANESPN ---
Anes - Prog Note Post-Op Date/Time: 12/25/23 08:00 Cardiovascular status: other (patient reports episodes of orthostatic hypotension) Respiratory status: normal Airway patency: baseline Mental status: baseline Post-Op hydration status: normal Vital Signs: Last Vital Signs Temp 36.9 C 12/25/23 03:39 Pulse 94 12/25/23 03:39 Resp 18 12/25/23 03:39 BP 123/88 12/25/23 03:39 Pulse Ox 97 12/25/23 03:39 O2 Del Method Autopap 12/24/23 23:36 O2 Flow Rate 2 12/24/23 15:00 Pain Score (VAS): 4/10 I/O: Intake & Output 12/24/23 12/25/23 12/25/23 23:59 07:59 15:59 Intake Total 1719.2 922 Output Total 300 1250 Balance 1419.2 -328 12/24/23 12/24/23 08:55 13:06 POC Capillary Glucose 115 H 148 H Post-procedural complaints: none Patient Feedback: Patient satisfied with anesthetic care.
[2023-12-25] MEDS: HYDROcodone/acetaminophen (*CRX) 10-325 MG TABLET 1 TAB PO ×2 (08:25→11:32)
--- NOTE | 2023-12-25 08:42 | PM.GYNPNOP ---
SPA DIRECTOR/FINANCE - A/P Postoperative Procedures: Procedures Operation Date: 12/24/23 10:00 Actual Procedure Side Surgeon p Total Laparoscopic Hysterectomy with Bilateral Salpingo-oophorectomy and cystoscopy Bilateral Indra Rick MD Time Spent With Patient Time: Total time spent is greater than 50% in coordination of care (as documented) at patient's floor/unit and/or counseling patient: Time with patient: less than 15 minutes SPA DIRECTOR/FINANCE- PN:Subj Post-Op Subjective Date/time seen: 12/25/23 08:42 Exam Const: General: comfortable, no acute distress and alert Resp: Effort & Inspection: normal respiratory effort Auscultation: no crackles, no rales and no rhonchi Cardio: Rate: regular rate Heart sounds: no click, no murmurs and no rubs GI: Inspection: non-distended Auscultation: normal bowel sounds Other: Incision - CDI Extrem: General: normal to inspection, no pedal edema and no calf tenderness SPA DIRECTOR/FINANCE - PN: Obj Data Vital Signs Vital Signs: Vital Signs - 24 hr 12/24/23 13:02 12/24/23 13:15 12/24/23 13:28 Temperature 97.2 F L Pulse Rate 104 H 94 103 H Respiratory Rate 17 16 Blood Pressure 131/102 H 162/103 H Pulse Oximetry 100 100 Oxygen Delivery Simple Face Mask Simple Face Mask Oxygen Flow Rate 8 8 12/24/23 13:30 12/24/23 13:45 12/24/23 14:00 Temperature Pulse Rate 93 89 86 Respiratory Rate 12 14 14 Blood Pressure 136/85 140/90 144/90 H Pulse Oximetry 97 98 98 Oxygen Delivery Nasal Cannula Nasal Cannula Nasal Cannula Oxygen Flow Rate 2 2 2 12/24/23 14:15 12/24/23 14:30 12/24/23 14:40 Temperature 98.1 F Pulse Rate 88 98 98 Respiratory Rate 14 16 16 Blood Pressure 138/90 142/87 H 136/75 Pulse Oximetry 99 99 97 Oxygen Delivery Nasal Cannula Room Air Oxygen Flow Rate 2 12/24/23 15:00 12/24/23 15:00 12/24/23 19:03 Temperature 97.8 F 96.8 F L Pulse Rate 102 H 100 Respiratory Rate 16 20 Blood Pressure 130/77 137/92 H Pulse Oximetry 96 97 99 Oxygen Delivery Nasal Cannula Oxygen Flow Rate 2 12/24/23 23:36 12/25/23 03:39 12/25/23 08:19 Temperature 98.4 F Pulse Rate 94 110 H Respiratory Rate 18 22 H Blood Pressure 123/88 Pulse Oximetry 97 97 98 Oxygen Delivery Autopap Oxygen Flow Rate 12/25/23 08:28 Temperature Pulse Rate 101 H Respiratory Rate 22 H Blood Pressure 117/70 Pulse Oximetry 97 Oxygen Delivery Room Air Oxygen Flow Rate Intake/Output Intake/Output: Intake & Output 12/22/23 12/23/23 12/24/23 12/25/23 23:59 23:59 23:59 23:59 Intake Total 2119.2 922 Output Total 360 1250 Balance 1759.2 -328 Meds/Results Medications: Active Medications Generic Name Dose Route Start Last Admin Trade Name Freq PRN Reason Stop Dose Admin Hydrocodone Bitart/Acetaminophen 1 tab 12/24/23 14:31 Hydrocodone/Acetaminophen (*Crx) 5-325 Mg Tablet PO Q3H PRN Pain Rated 5 or Less Hydrocodone Bitart/Acetaminophen 1 tab 12/24/23 14:31 12/25/23 08:25 Hydrocodone/Acetaminophen (*Crx) 10-325 Mg Tablet PO 1 tab Q3H PRN Administration Pain Rated 6 or Greater Buspirone HCl 7.5 mg 12/25/23 09:00 Buspirone Hcl 2.5 Mg Tablet PO DAILY BETTYE Buspirone HCl 10 mg 12/24/23 18:00 12/24/23 20:41 Buspirone Hcl 10 Mg Tablet PO Not Given QPM BETTYE Diphenhydramine HCl 25 mg 12/24/23 15:59 12/24/23 16:30 Diphenhydramine Hcl Cap 25 Mg Capsule PO 25 mg Q6H PRN Administration Itching Docusate Sodium 100 mg 12/24/23 14:54 12/24/23 16:30 Docusate Sodium 100 Mg Capsule PO 100 mg Q12H PRN Administration Constipation Hydromorphone HCl 1 mg 12/24/23 17:38 12/25/23 03:30 Hydromorphone Hcl Inj (*Crx) 1 Mg/Ml Syr IV PUSH 1 mg Q3H PRN Administration Pain Rated 7-10 Dextrose/Sodium Chloride 1,000 mls @ 125 mls/hr 12/24/23 14:31 12/24/23 20:02 Dextrose 5% Sodium Chloride 0.45% IV CONT 125 mls/hr .Q8H BETTYE Administration Ibuprofen 600 mg 12/24/23 14:31 Ibupr
[2023-12-25] MEDS: metFORMIN HCL XR 500 MG TAB.SR.24H 1000 MG PO (09:57)
[2023-12-25] MEDS: estradioL 1 MG TABLET PO (09:57)
[2023-12-25] MEDS: DOCUSATE SODIUM 100 MG CAPSULE PO (09:58)
[2023-12-25] MEDS: PANTOPRAZOLE 40 MG TABLET PO (09:58)
[2023-12-25] MEDS: busPIRone HCL 2.5 MG TABLET 7.5 MG PO (09:58)
[2023-12-25] MEDS: diphenhydrAMINE HCl CAP 25 MG CAPSULE PO (11:32)
== END 2023-12-25 16:07 | disposition home or self-care (01) ==
LOC: ANHSURGERY 08:07 → ANHOB2 14:33
PROVIDERS: PCP Family Medicine; Visit Provider Obstetrics & Gynecology
PROC: 0UT9FZZ Resection of Uterus, Via Natural or Artificial Opening With Percutaneous Endoscopic Assistance (ICD-10-PCS; CPT 58573; principal; 2023-12-24 10:00)
DX: N92.0 Excessive and frequent menstruation with regular cycle (principal); D25.1 Intramural leiomyoma of uterus; N80.03 Adenomyosis of the uterus; N80.00 Endometriosis of the uterus, unspecified; N83.202 Unspecified ovarian cyst, left side; N83.201 Unspecified ovarian cyst, right side; Z79.84 Long term (current) use of oral hypoglycemic drugs; I10 Essential (primary) hypertension; K21.9 Gastro-esophageal reflux disease without esophagitis; M79.7 Fibromyalgia; I49.3 Ventricular premature depolarization; Z87.891 Personal history of nicotine dependence; F12.90 Cannabis use, unspecified, uncomplicated; E66.01 Morbid (severe) obesity due to excess calories; Z68.42 Body mass index [BMI] 45.0-49.9, adult
CPT/HCPCS: 58573; 82948; 88307; 99199; A9270; J0330; J0690; J1100; J1170; J1200; J1885; J2250; J2405; J2704; J3010; J7030; J7120

== ENCOUNTER 2023-12-30 09:01 | Inpatient (IN) | payer OTHER, SELFPAY ==
[2023-12-30] VITALS (11 sets, daily range): BP systolic 128–152; BP diastolic 74–88; PULSE 101–123; RESP 16–20; TEMP 36.6–38.6; O2SAT 97–100; BMI 46.3; BMI 46.5
--- NOTE | ~2023-12-30 | CT_ITS ---
EXAMINATION: CT abdomen pelvis w con DATE: 12/30/2023 10:15 INDICATION: Pelvic pain. TECHNIQUE: Computed tomography (CT) of the abdomen and pelvis was performed with 100 mL Omnipaque 350 intravenous contrast. Automated exposure control and iterative reconstruction technique were employe d. The dose-length product was 1634.37 mGy-cm. COMPARISON: CT abdomen and pelvis 12/02/2023 FINDINGS: The visualized portions of the lung bases demonstrate mild atelectasis. No pleural effusion . The heart size is normal. No pericardial effusion. There is diffuse hepatic steatosis. There are ch anges of cholecystectomy. The spleen, pancreas, adrenal glands, and kidneys are normal. There are no dilated loops of bowel. The appendix is normal. There are changes of recent hysterectomy. There is ga s and hematoma in the area of the hysterectomy measuring up to 11.8 x 6.1 x 11.8 cm. There are no pat hologically enlarged lymph nodes. There is mild thoracic and lumbar spondylosis. IMPRESSION: 1. Gas and hematoma in the area of the recent hysterectomy. 2. Diffuse hepatic steatosis. Reviewed, dictated and finalized at location A.
--- NOTE | ~2023-12-30 | CT_ITS ---
EXAMINATION: CT abdomen pelvis w con DATE: 01/02/2024 14:20 INDICATION: Abdominal pain TECHNIQUE: Computed tomography (CT) of the abdomen and pelvis was performed with 100 mL Omnipaque-350 intravenous contrast. Automated exposure control and iterative reconstruction technique were employe d. The dose-length product was 1492.17 mGy-cm. COMPARISON: 12/30/2023 FINDINGS: Lung bases are clear. Heart size is normal. No pericardial or pleural effusion. Diffuse hepatic steat osis. Cholecystectomy clips at the gallbladder fossa. Pancreas, spleen, bilateral adrenal glands and kidneys are normal. Bladder is normal. Uterus is not visualized and there has been resolution of prio r gas and significant decrease in the amount of complex fluid with gradient of increasing dependent d ensity likely postoperative blood in the pelvis likely related to the recent hysterectomy. There is r esidual small fluid collections measure 4.4 x 3.8 x 2.3 cm at the hysterectomy bed and 5.5 x 3.9 x 2. 6 cm along the anterior margin of the right common and external iliac vessels and 2.9 x 2.7 x 1.3 cm along the medial side of the left iliac vessels. Normal appendix. No dilated bowel to suggest ileus o r obstruction. No residual free intraperitoneal gas. There is residual subcutaneous edema at the flan ks, left greater than right. No pathologically enlarged abdominal or pelvic lymphadenopathy. Mild tho racic and lumbar spondylosis. IMPRESSION: 1. Resolution of prior casting significant interval decrease in a few now small collections of comple x fluid likely postoperative hematoma/seroma in the deep pelvis at the site of a prior hysterectomy. 2. Diffuse hepatic steatosis. Reviewed, dictated and finalized at location A. IMPRESSION: 1. Resolution of prior casting significant interval decrease in a few now small collections of complex fluid likely postoperative hematoma/seroma in the deep pelvis at the site of a prior hysterectomy. 2. Diffuse hepatic steatosis.
--- NOTE | 2023-12-30 09:05 | ED.ABDPAIN ---
HPI - Abdominal Pain General Chief Complaint: Abdominal Pain Stated Complaint: hyst on friday, post op pain Time Seen by Provider: 12/30/23 09:04 Source: patient Mode of arrival: ambulatory Limitations: no limitations History of Present Illness HPI narrative: Melyssa is a 38-year-old female patient presenting to the ER today with complaints of postoperative pain from a total laparoscopic hysterectomy that was done on Friday by Dr. Rick. Patient reports that she is having some dizziness with fever of 101. Has been taking oxycodone for her pain. Rates her pain currently 8 out of 10 and states it is a pressure in her bladder and rectum also reporting some associated nausea without vomiting or diarrhea. Last bowel movement was yesterday and was very hard (rat pellets). Is having difficulty urinating. Was seen by OBGYN yesterday and prescription for Cipro was sent to the pharmacy as a thought she may have a urinary tract infection. Related Data Home Medications Medication Instructions Recorded Confirmed lisinopril 10 mg tablet 10 mg PO DAILY 10/11/22 12/24/23 metoprolol succinate 50 mg 150 mg PO DAILY 10/11/22 12/24/23 tablet,extended release 24 hr milnacipran 50 mg tablet (Savella) 50 mg PO BID 10/11/22 12/24/23 progesterone micronized 200 mg 200 mg PO DAILY 07/01/23 12/24/23 capsule multivitamin 1 tablet PO DAILY 12/22/23 12/24/23 Allergies Allergy/AdvReac Type Severity Reaction Status Date / Time amlodipine Allergy Unknown peripheral Verified 12/30/23 09:23 edema promethazine Allergy Unknown Skin Verified 12/30/23 09:23 Reaction nirmatrelvir [From Paxlovid] AdvReac Severe cardiac Verified 12/30/23 09:23 ritonavir [From Paxlovid] AdvReac Severe cardiac Verified 12/30/23 09:23 latex AdvReac Itching Verified 12/30/23 09:23 Review of Systems Review of Systems: Pertinent positives per HPI. Patient denies any fever, chills, rash, headache, visual changes, dizziness, cough, runny nose, sore throat, shortness of breath, chest pain, palpitations,vomiting, diarrhea. PMFSH Past Medical History Medical History Acute gastritis Benign essential hypertension Bruxism Chest wall pain COVID Ear itching Esophageal reflux Fibromyalgia Fungal otitis externa IBS (irritable bowel syndrome) Nasal congestion Otalgia of both ears Otitis externa of left ear Otitis externa of right ear Otorrhea, left ear Otorrhea, left ear Panic disorder without agoraphobia PVC (premature ventricular contraction) Surgical History Surgical History H/O dilation and curettage H/O wisdom tooth extraction H/O: section History of placement of ear tubes Hx of cholecystectomy S/P CANDELARIA-BSO 3.27.24 Family History Family History Other Cerebrovascular accident Diabetes mellitus Family history of malignant neoplasm Hypertension Social History Social History Smoking packs per day: 1 Smoking cigarettes per day: 20.0 Years smoked: 5 Smoking pack-years: 5.00 Smoking status: Former smoker Tobacco type: cigarettes Smoking end date: 09/29/03 Alcohol intake: never Alcohol use details: occasionally Substance use: current Substance use type: marijuana Other substance usage details: EDIBLES Lack of Transportation: No Lack of Food: Sometimes True Current Housing: I Have Housing Concerned About Future Housing: No Difficulty Paying Gas/Electric Bills: YES Difficulty Paying for Meds: YES Currently Unemployed: No Education: Bachelor's Degree Difficulty w/ Childcare or Family Care: No Living arrangements: with family Spiritual care concerns: No Comments At the time of my signature, I reviewed and agree with the nursing past medical, surgical, social
[2023-12-30] MEDS: SODIUM CHLORIDE 0.9% IV 1,000 ML 999 ML IV CONT (09:35)
[2023-12-30] MEDS: ONDANSETRON INJ 4 MG/2 ML VIAL IV PUSH (09:35)
[2023-12-30] MEDS: HYDROmorphone HCL INJ (*CRX) 1 MG/ML SYR IV PUSH ×2 (09:35→21:17)
[2023-12-30 09:48] LABS: Basophils Percent Auto 0.3 % (0.2-1.2); Eosinophils Absolute Auto 0.5 K/mm3 (0-0.3); Eosinophils Percent Auto 4.1 % (0-4.4); Hematocrit 24.5 % (37.0-47.0); Hemoglobin 7.7 g/dL (12.0-15.0); Immature Granulocyte Absolute 0.35 K/mm3 (0.00-0.031); Immature Granulocyte Percent A 2.7 % (0-0.5); Lymphocytes Absolute Auto 1.68 K/mm3 (0.9-3.2); Lymphocytes Percent Auto 12.9 % (18.3-44.2); Mean Corpuscular HGB Conc 31.4 g/dl (32-36); Mean Corpuscular Hemoglobin 27.1 pg (26-34); Mean Corpuscular Volume 86.3 fl (80-100); Mean Platelet Volume 10.1 fl (7.4-10.4); Monocytes Absolute Auto 1.1 K/mm3 (0.1-0.6); Neutrophils Absolute Auto 9.4 K/mm3 (1.3-6.7); Nucleated Red Blood Cells Perc 0.3 % (0.0-0.2); Platelet Count Result 379 k/mm3 (150-375); Red Blood Count 2.84 M/mm3 (4.2-5.4); Red Cell Distribution Width 14.8 % (11.5-14.5); White Blood Count 13.1 K/mm3 (4.5-10.0)
[2023-12-30 09:57] LABS: Alanine Aminotransferase 74 U/L (6-35); Albumin Level 3.9 g/dL (3.5-5.1); Alkaline Phosphatase 77 U/L (38-126); Anion Gap 3 mmol/L (4-12); Aspartate Amino Transferase 49 U/L (14-36); Blood Urea Nitrogen 11 mg/dL (7-17); Calcium 8.9 mg/dL (8.4-10.2); Carbon Dioxide 27 mmol/L (22-30); Chloride 103 mmol/L (98-107); Estimated CRCL calculation 138 ml/min; Estimated Glomerular Filt Rate > 60; Glucose 151 mg/dL (65-110); Lipase 49 U/L (23-300); Potassium 3.4 mmol/L (3.4-5.0); Sodium 133 mmol/L (137-145)
[2023-12-30 11:21] LABS: Bacteria Urine None Seen /hpf; Need Manual Microscopic Reviewed; Non Pathogenic Casts 0-2; RBC Urine 0-2 /hpf (0-2); Squamous Epithelial Cell Urine None Seen /hpf (Few); WBC Urine 0-5 /hpf (0-3)
[2023-12-30 11:22] LABS: Appearance Urine Clear (Clear); Color Urine Orange (Yellow)
[2023-12-30 11:23] LABS: Add Urine Microscopic? YES
--- NOTE | 2023-12-30 12:45 | ADMGEN ---
This patient, Araceli Cedeno, was admitted to 3 [facility] Surg Room 303-01. Patient/family oriented to hospital policies and general routines including ID bracelet, bed and alarms, visiting hours, pain management, procedures, bathroom and other care routines, personal items, smoking policy, room service/diet, and visiting hours. Information on how to activate the Rapid Response Team has been discussed. Patient/Family are encouraged to report perceived risks to care and to ask questions if they do not understand what they are told or what they should do.
[2023-12-30] MEDS: SODIUM CHLORIDE 0.9% IV 1,000 ML 125 ML IV CONT ×2 (13:14→23:08)
[2023-12-30 13:37] LABS: Hematocrit 23.1 % (37.0-47.0); Hemoglobin 7.4 g/dL (12.0-15.0)
[2023-12-30] MEDS: ONDANSETRON INJ 4 MG/2 ML VIAL 8 MG IV PUSH (14:29)
[2023-12-30] MEDS: oxyCODONE/ACETAMINOPHEN (*CRX) 5-325 MG TABLET PO ×2 (14:30→23:57)
--- NOTE | 2023-12-30 15:09 | PM.IMHP ---
H&P: [facility] History of Present Illness Date/Time: 12/30/23 15:09 Chief Complaint: pelvic pain Narrative: this patient is a 38-year-old female who is 1 week postop from a total laparoscopic hysterectomy /BSO. She appears to have a postop hematoma. CT is indicative of that. She is anemic. She does have some fatigue. She does have some malaise. She denies any nausea , vomiting, fever, chills. She denies any chest pain shortness of breath. she denies any vaginal bleeding. Review of Systems Review of Systems: All systems reviewed & are unremarkable except as noted in HPI and below Constitutional: Constitutional: Denies chills, Denies fatigue, Denies fever(s) and Denies weakness Eyes: Eyes: Denies blurry vision, Denies change in vision, Denies loss of peripheral vision, Denies loss of vision, Denies other visual disturbances and Denies eye pain ENT: Denies vertigo, Denies dizziness, Denies hearing loss, Denies mouth pain, Denies nasal obstruction, Denies neck mass and Denies neck pain Cardiovascular: Cardiovascular: Denies chest pain, Denies diaphoresis, Denies syncope, Denies leg edema and Denies dyspnea Respiratory: Respiratory: Denies chest congestion, Denies cough, Denies hemoptysis, Denies dyspnea and Denies wheezing Gastrointestinal: Gastrointestinal: Denies abdominal pain, Denies constipation, Denies diarrhea, Denies nausea and Denies vomiting Genitourinary: Genitourinary: Denies hematuria, Denies change in libido, Denies nocturia, Denies genital lesions, Denies flank pain and Denies urinary urgency Musculoskeletal: Musculoskeletal: Denies abnormal gait, Denies back pain, Denies myalgias, Denies arthralgias, Denies joint swelling, Denies muscle weakness and Denies neck pain Integumentary/Breasts: Skin/Breast: Denies swelling, Denies breast pain, Denies breast mass, Denies dry skin, Denies nipple discharge, Denies unusual bruising and Denies jaundice Neurologic: Denies Neuro-related abnormal movements, Denies Abnormal speech present, Denies abnormal gait, Denies behavioral changes, Denies confusion, Denies vertigo, Denies dizziness, Denies syncope, Denies loss of vision, Denies memory loss, Denies convulsions and Denies weakness Psychiatric: Psychiatric: Denies abnormal sleep pattern, Denies behavioral changes, Denies change in libido, Denies confusion, Denies depression, Denies anhedonia and Denies memory loss Endocrine: Endocrine: Reports no additional endocrine complaints, Denies change in libido and Denies fatigue Hematologic/Lymphatic: Hematologic/Lymphatic: Reports no additional hematologic/lymphatic complaints Allergic/Immunologic: Allergic/Immunologic: Reports no additional allergic/immunologic complaints and Denies wheezing PMFSH Past Medical History Medical History Acute gastritis Benign essential hypertension Bruxism Chest wall pain COVID Ear itching Esophageal reflux Fibromyalgia Fungal otitis externa IBS (irritable bowel syndrome) Nasal congestion Otalgia of both ears Otitis externa of left ear Otitis externa of right ear Otorrhea, left ear Otorrhea, left ear Panic disorder without agoraphobia PVC (premature ventricular contraction) Surgical History Surgical History H/O dilation and curettage H/O wisdom tooth extraction H/O: section History of placement of ear tubes Hx of cholecystectomy S/P CANDELARIA-BSO 3.27.24 Family History Family History Other Cerebrovascular accident Diabetes mellitus Family history of malignant neoplasm Hypertension Social History Social History Smoking packs per day: 1 Smoking cigarettes per day: 20.0 Years smoked: 5 Smoking pack-years: 5.00 Smoking status: Former smoker Alcohol intake: never Alcohol use details:
[2023-12-30 23:31] LABS: Hematocrit 24.6 % (37.0-47.0)
[2023-12-30 23:40] LABS: Total Bilirubin Imm Post TxRxn 4.4 mg/dL (0.2-1.3)
[2023-12-30] MEDS: ACETAMINOPHEN 325 MG TABLET 650 MG PO (23:56)
[2023-12-31] VITALS (27 sets, daily range): BP systolic 130–158; BP diastolic 68–99; PULSE 96–126; RESP 13–30; TEMP 35.9–38.1; O2SAT 94–100
[2023-12-31] MEDS: metroNIDAZOLE 500 MG/ISO 100ML 500 MG/100 ML BAG 100 MG IVPB ×4 (00:14→21:06)
[2023-12-31 00:44] LABS: TXRXN Occult Blood Urine Immed 1+ (Negative)
[2023-12-31 04:13] LABS: Hematocrit 24.8 % (37.0-47.0); Hemoglobin 7.9 g/dL (12.0-15.0); Mean Corpuscular HGB Conc 31.9 g/dl (32-36); Mean Corpuscular Hemoglobin 27.1 pg (26-34); Mean Corpuscular Volume 85.2 fl (80-100); Mean Platelet Volume 9.5 fl (7.4-10.4); Platelet Count Result 281 k/mm3 (150-375); Red Blood Count 2.91 M/mm3 (4.2-5.4); Red Cell Distribution Width 14.9 % (11.5-14.5)
[2023-12-31 04:22] LABS: Total Bilirubin 5hr Post TX RX 3.7 mg/dL (0.2-1.3)
[2023-12-31] MEDS: ACETAMINOPHEN 325 MG TABLET 650 MG PO (05:06)
[2023-12-31] MEDS: oxyCODONE/ACETAMINOPHEN (*CRX) 5-325 MG TABLET PO ×2 (05:07→18:26)
[2023-12-31] MEDS: ceFAZolin 2 GM/D5W 50 ML 2 GM/50 ML BAG IVPB ×4 (08:08→23:29)
[2023-12-31] MEDS: SODIUM CHLORIDE 0.9% IV 1,000 ML 125 ML IV CONT (09:33)
[2023-12-31] MEDS: METOPROLOL SUCCINATE EXT REL 50 MG TABCR 150 MG PO (09:47)
[2023-12-31] MEDS: busPIRone HCL 5 MG TABLET 15 MG PO (10:08)
--- NOTE | 2023-12-31 11:52 | PC.NURSE ---
To OR per [Chika and Dickson], IV [20 L hand]. Report given to [CHIKA].
[2023-12-31] MEDS: LACTATED RINGERS 1,000 ML 30 ML IV CONT (12:00)
[2023-12-31] MEDS: ACETAMINOPHEN 500 MG TABLET 1000 MG PO (12:40)
--- NOTE | 2023-12-31 12:53 | WPDHPUPDATE1 ---
History and Physical Update Update Date/Time: 12/31/23 12:53 History and Physical has been reviewed, including an updated exam of the patient. There are NO changes in the patient's condition. Risks, benefits, and alternatives have been discussed and questions answered. Patient agrees to proceed with procedure.
[2023-12-31 12:55] LABS: Hematocrit 25.7 % (37.0-47.0); Hemoglobin 7.9 g/dL (12.0-15.0)
--- NOTE | 2023-12-31 13:37 | SUR.PREOP ---
1215- Notified Dr. Meléndez patient's temperature 102.3, tachycardic 118 and BP 141/89. Per Dr. Meléndez give patient 1GM PO Tylenol with sip of water. 1225- Dr. Rick notified of patient's current vital signs and patient voicing concerns in regards to procedure. Dr. Rick at bedside speaking with patient and answering patient's questions and concerns. H&H drawn by PACU tech Caren Caceres and sent to laboratory. 1255- Per Dr. Rick place orders for 1 unit PRBC's. Patient can go to OR prior to administration of 1 unit PRBC's, see order in NOV.
--- NOTE | 2023-12-31 14:33 | W.PM.PROC2 ---
Procedure Note - Detailed Date of Procedure 12/31/23 Pre-op Diagnosis Postop hematoma Post-op Diagnosis Same Procedure Performed Diagnostic laparoscopy Surgeon Indra Rick MD Anesthesia General Indications Pelvic pain Findings Large clot in the pelvis extending around the rectum and up to the bladder dome. No certain evidence of abscess. Description of Procedure The patient was taken to the operating room. She was prepped and draped in the dorsal lithotomy position after induction general anesthesia. A 5 mm incision was made with a scalpel on the abdominal skin in the left upper quadrant of the abdomen. A 5 mm trocar was inserted into the intra-abdominal cavity under direct visualization the scope. In the same fashion a 5 mm left lower quadrant trocar was inserted and a 5 mm infraumbilical trocar was inserted. using grasper and suction the hematoma was broken down and irrigated and evacuated to the greatest degree possible. There is well adhered clot on the quinonez of the pelvis, bladder, or rectum. As much clot was removed that did not too adherent to the underlying tissue. About 500 cc of clot was removed. A HERLINDA drain was placed in the pelvis deeply. It was placed through the left lower quadrant trocar and using a grasper placed down in the deep part of the pelvis. Holding it in place the trocar was withdrawn. The pelvis was irrigated. The pneumoperitoneum was reduced. The trocars were removed. Skin was closed with subcuticular 4 micro. The patient's incisions were covered with Dermabond. She was taken recovery room in stable condition. Sponge lap and needle counts were correct x2. Urine Output 100 Complications No immediate complications Condition Stable Disposition Same day
--- NOTE | 2023-12-31 15:18 | WPDANESEPPF ---
Anes - Initial Pre Proc Eval Procedure: Operation Date: 12/31/23 11:30 Proposed Procedures p Diagnostic Laparoscopy with Evacuation of Hematoma, Possible Laparotomy - Indra Rick MD Date/Time: 12/31/23 15:18 Surgeon: Indra Rick MD Pre Op Diagnosis: Anemia/Post Surg/S/P Total Laproscopic Hyst/Hemato Patient Data Age: 38 Gender: F Height: 1.63 m Weight: 122.9 kg Last Vital Signs Temp 36.9 C 12/31/23 14:35 Pulse 121 H 12/31/23 14:35 Resp 13 12/31/23 14:35 BP 136/68 12/31/23 14:35 Pulse Ox 100 12/31/23 14:35 O2 Del Method Simple Face Mask 12/31/23 14:35 O2 Flow Rate 6 12/31/23 14:35 Allergies Allergy/AdvReac Type Severity Reaction Status Date / Time amlodipine Allergy Unknown peripheral Verified 12/30/23 13:00 edema promethazine Allergy Unknown Skin Verified 12/30/23 13:00 Reaction nirmatrelvir [From Paxlovid] AdvReac Severe cardiac Verified 12/30/23 13:00 ritonavir [From Paxlovid] AdvReac Severe cardiac Verified 12/30/23 13:00 latex AdvReac Itching Verified 12/30/23 13:00 Home Medications Medication Instructions Recorded Confirmed Type lisinopril 10 mg tablet 10 mg PO DAILY 10/11/22 12/30/23 History metoprolol succinate 50 mg 150 mg PO DAILY 10/11/22 12/30/23 History tablet,extended release 24 hr milnacipran 50 mg tablet (Savella) 50 mg PO BID 10/11/22 12/30/23 History clobetasol 0.05 % scalp solution 1 applic topical DAILY #50 mL 05/20/23 12/30/23 Rx triamterene 37.5 1 tablet PO DAILY #90 tabs 10/09/23 12/30/23 Rx mg-hydrochlorothiazide 25 mg tablet pantoprazole 40 mg tablet,delayed 40 mg PO DAILY #90 tabs 11/13/23 12/30/23 Rx release ibuprofen 800 mg tablet 800 mg PO TID PRN pain #20 tabs 12/02/23 12/30/23 Rx ondansetron 4 mg disintegrating 4 mg PO Q8H #14 tabs 12/02/23 12/30/23 Rx tablet multivitamin 1 tablet PO DAILY 12/22/23 12/30/23 History estradiol 1 mg tablet 1 mg PO DAILY #30 tabs 12/25/23 12/30/23 Rx oxycodone-acetaminophen 5 mg-325 1 tablet PO Q4H PRN pain #25 tabs 12/25/23 12/30/23 Rx mg tablet buspirone 15 mg tablet 15 mg PO BID 12/30/23 12/31/23 History ciprofloxacin HCl 500 mg tablet 500 mg PO BID 12/30/23 12/30/23 History metformin 500 mg tablet,extended 500 mg PO BID 12/30/23 12/30/23 History release 24hr (osmotic) mirtazapine 15 mg tablet 15 mg PO HS 12/30/23 12/30/23 History Laboratory Tests 12/30/23 12/30/23 12/30/23 15:22 22:46 23:14 WBC RBC Hgb 8.0 L g/dL (12.0-15.0) Hct 24.6 L % (37.0-47.0) MCV MCH MCHC RDW Plt Count MPV Post-Trans Total Bili 4.4 H mg/dL (0.2-1.3) Ur Blood, Post-Transfus 1+ H (Negative) Post-Trnsf Ur Hematuria 3-5 H /hpf (0-2) Blood Type A Negative Antibody Screen Negative Crossmatch See Detail Pre-Trans Antibody Scrn Negative Post-Trans Antibody Scrn Negative 12/31/23 12/31/23 04:09 12:30 WBC 9.0 K/mm3 (4.5-10.0) RBC 2.91 L M/mm3 (4.2-5.4) Hgb 7.9 L g/dL 7.9 L g/dL (12.0-15.0) (12.0-15.0) Hct 24.8 L % 25.7 L % (37.0-47.0) (37.0-47.0) MCV 85.2 fl (80-100) MCH 27.1 pg (26-34) MCHC 31.9 L g/dl (32-36) RDW 14.9 H % (11.5-14.5) Plt Count 281 k/mm3 (150-375) MPV 9.5 fl (7.4-10.4) Post-Trans Total Bili 3.7 H mg/dL (0.2-1.3) Ur Blood, Post-Transfus Post-Trnsf Ur Hematuria Blood Type Antibody Screen Crossmatch Pre-Trans Antibody Scrn Post-Trans Antibody Scrn Patient hx anesthesia problems: none Family hx anesthesia problems: none Results Review: All pre-operative results and documents have been reviewed as part of the pre-operative evaluation. [facility] Past Medical History Medical History (Reviewed 12/29/
[2023-12-31] MEDS: fentaNYL CITRATE INJ (*CRX) 100 MCG/2 ML VIAL 25 MCG IV PUSH ×4 (15:20→16:30)
[2023-12-31] MEDS: SODIUM CHLORIDE 0.9% IV 250 ML 30 ML IV CONT (15:45)
[2023-12-31] MEDS: diphenhydrAMINE HCl INJ 50 MG/ML VIAL 25 MG IV PUSH (15:59)
--- NOTE | 2023-12-31 16:44 | PC.NURSE ---
Returned from OR per [ ]. Report received from [Isabelle].
[2023-12-31] MEDS: metFORMIN HCL XR 500 MG TAB.SR.24H PO (17:59)
--- NOTE | 2023-12-31 19:39 | PHAR ---
Pharmacy verified home med: Savella 50 mg tablets - sealed bottle 60 tablets
[2023-12-31] MEDS: MIRTAZAPINE 15 MG TABLET PO (21:05)
[2023-12-31] MEDS: busPIRone HCL 10 MG TABLET 30 MG PO (21:05)
[2023-12-31 21:07] LABS: Hematocrit 26.5 % (37.0-47.0); Hemoglobin 8.6 g/dL (12.0-15.0)
[2023-12-31] MEDS: HYDROmorphone HCL INJ (*CRX) 1 MG/ML SYR IV PUSH (21:54)
[2023-12-31] MEDS: SIMETHICONE 125 MG CHEW TAB PO (22:19)
[2024-01-01] MEDS: oxyCODONE/ACETAMINOPHEN (*CRX) 5-325 MG TABLET PO ×4 (03:21→23:32)
[2024-01-01] MEDS: SODIUM CHLORIDE 0.9% IV 1,000 ML 125 ML IV CONT (05:47)
[2024-01-01] MEDS: metroNIDAZOLE 500 MG/ISO 100ML 500 MG/100 ML BAG 100 MG IVPB ×3 (05:47→20:58)
[2024-01-01] MEDS: HYDROmorphone HCL INJ (*CRX) 1 MG/ML SYR IV PUSH ×3 (06:06→20:54)
[2024-01-01 06:22] VITALS: BP 126/78; PULSE 94; RESP 20; TEMP 36.9; O2SAT 98
[2024-01-01 08:02] LABS: Basophils Percent Auto 0.3 % (0.2-1.2); Eosinophils Absolute Auto 0.1 K/mm3 (0-0.3); Eosinophils Percent Auto 1.2 % (0-4.4); Hematocrit 24.7 % (37.0-47.0); Immature Granulocyte Absolute 0.27 K/mm3 (0.00-0.031); Lymphocytes Absolute Auto 1.31 K/mm3 (0.9-3.2); Lymphocytes Percent Auto 14.7 % (18.3-44.2); Mean Corpuscular HGB Conc 32.4 g/dl (32-36); Mean Corpuscular Hemoglobin 28.4 pg (26-34); Mean Corpuscular Volume 87.6 fl (80-100); Mean Platelet Volume 9.8 fl (7.4-10.4); Monocytes Absolute Auto 0.9 K/mm3 (0.1-0.6); Neutrophils Absolute Auto 6.3 K/mm3 (1.3-6.7); Neutrophils Percent Auto 70.8 % (45.5-73.1); Nucleated Red Blood Cells Perc 0.2 % (0.0-0.2); Platelet Count Result 279 k/mm3 (150-375); Red Blood Count 2.82 M/mm3 (4.2-5.4); Red Cell Distribution Width 15.1 % (11.5-14.5); White Blood Count 8.9 K/mm3 (4.5-10.0)
[2024-01-01] MEDS: estradioL 1 MG TABLET PO (08:11)
[2024-01-01 08:13] VITALS: PULSE 96
[2024-01-01] MEDS: METOPROLOL SUCCINATE EXT REL 50 MG TABCR 150 MG PO (08:13)
[2024-01-01] MEDS: busPIRone HCL 5 MG TABLET 15 MG PO (08:15)
[2024-01-01] MEDS: metFORMIN HCL XR 500 MG TAB.SR.24H PO ×2 (08:15→16:28)
[2024-01-01] MEDS: MULTIVITAMINS THERAPEUTIC TAB (*BKC) 1 TABLET PO (08:16)
[2024-01-01] MEDS: lisinopriL 10 MG TABLET PO (08:16)
[2024-01-01] MEDS: TRIAMTERENE 37.5 MG/HCTZ 25 MG (MAXZIDE) TABLET 1 TAB PO (08:16)
[2024-01-01] MEDS: PANTOPRAZOLE 40 MG TABLET PO (08:16)
[2024-01-01] MEDS: ceFAZolin 2 GM/D5W 50 ML 2 GM/50 ML BAG IVPB ×3 (08:17→23:17)
--- NOTE | 2024-01-01 08:33 | PM.GYNPNOP ---
SCHOOL SPEECH THERAPIST - A/P Postoperative Procedures: Procedures Operation Date: 12/31/23 11:30 Actual Procedure Side Surgeon p Diagnostic Laparoscopy with Evacuation of Hematoma, Possible Laparotomy Indra Rick MD Continue observation, hospitalist consult for medical issues, modest fluid in the drain. Postoperative day: 1 Postoperative status: doing well Postoperative plan: see orders Time Spent With Patient Time: Total time spent is greater than 50% in coordination of care (as documented) at patient's floor/unit and/or counseling patient: Time with patient: 15 - 25 minutes SCHOOL SPEECH THERAPIST- PN:Subj Post-Op Subjective Date/time seen: 01/01/24 08:33 Interval history: IMPROVED PRESSURE IN THE PELVIS, ABSENT, no urgency to void or tenesmus. No fever since the reoperation. No nausea, vomiting, fever, chills. No chest pain, shortness of breath. Subjective: patient reports feeling better, patient has no complaints and pain is well controlled Exam Const: General: healthy appearing, comfortable and no acute distress Resp: Auscultation: clear to auscultation bilaterally, no rales, no rhonchi and no wheezes Cardio: Rate: regular rate Heart sounds: no click, no murmurs and no rubs GI: Inspection: non-distended Auscultation: normal bowel sounds Extrem: General: normal to inspection, no pedal edema and no calf tenderness SCHOOL SPEECH THERAPIST - PN: Obj Data Vital Signs Vital Signs: Vital Signs - 24 hr 12/31/23 09:34 12/31/23 10:35 12/31/23 12:59 Temperature 99.5 F 98.2 F 100.0 F H Pulse Rate 124 H 112 H 117 H Respiratory Rate 18 16 Blood Pressure 158/99 H 136/70 Pulse Oximetry 97 99 97 Oxygen Delivery Room Air Oxygen Flow Rate 12/31/23 14:35 12/31/23 14:50 12/31/23 15:05 Temperature 98.5 F Pulse Rate 121 H 109 H 104 H Respiratory Rate 13 29 H 30 H Blood Pressure 136/68 142/76 H 145/73 H Pulse Oximetry 100 100 100 Oxygen Delivery Simple Face Mask Simple Face Mask Simple Face Mask Oxygen Flow Rate 6 6 6 12/31/23 15:20 12/31/23 15:35 12/31/23 15:50 Temperature Pulse Rate 105 H 101 H 101 H Respiratory Rate 24 H 25 H 18 Blood Pressure 148/80 H 130/72 141/85 H Pulse Oximetry 94 94 96 Oxygen Delivery Room Air Room Air Room Air Oxygen Flow Rate 12/31/23 16:12 12/31/23 16:27 12/31/23 16:42 Temperature 97.9 F 97.1 F L 96.7 F L Pulse Rate 100 103 H 100 Respiratory Rate 25 H 24 H 29 H Blood Pressure 132/77 133/76 139/76 Pulse Oximetry 95 95 95 Oxygen Delivery Oxygen Flow Rate 12/31/23 16:57 12/31/23 17:12 12/31/23 17:27 Temperature 97.4 F L 97.7 F 97.4 F L Pulse Rate 101 H 101 H 96 Respiratory Rate 18 18 18 Blood Pressure 139/77 131/80 135/76 Pulse Oximetry 98 97 97 Oxygen Delivery Oxygen Flow Rate 12/31/23 17:42 12/31/23 17:57 12/31/23 18:20 Temperature 97.6 F 98.4 F 98.4 F Pulse Rate 96 102 H 98 Respiratory Rate 18 16 16 Blood Pressure 135/76 134/77 134/77 Pulse Oximetry 97 98 98 Oxygen Delivery Oxygen Flow Rate 12/31/23 22:26 01/01/24 03:35 01/01/24 06:22 Temperature 98.5 F 98.4 F Pulse Rate 103 H 94 Respiratory Rate 18 20 Blood Pressure 136/78 126/78 Pulse Oximetry 98 98 Oxygen Delivery Room Air Oxygen Flow Rate 01/01/24 08:13 Temperature Pulse Rate 96 Respiratory Rate Blood Pressure Pulse Oximetry Oxygen Delivery Oxygen Flow Rate Intake/Output Intake/Output: Intake & Output 12/29/23 12/30/23 12/31/23 01/01/24 23:59 23:59 23:59 23:59 Intake Total 3930.0 3250.0 1200 Output Total 200 2530 740 Balance 3730.0 720.0 460 Meds/Results Medications: Active Medications Generic Name Dose Route Start Last Admin Trade Name Rafalq PRN Reason Stop Dose Admin Acetaminophen 650 mg 12/30/23 22:34 12/31/23 05:06 Acetaminophen 325 Mg Tablet PO 650 mg Q6H PRN Administration Mild Pain (1-3) or Fever Buspirone HCl 15 mg 12/31/23 10:10 01/01/24 08:15 Buspirone Hcl 5 Mg Tablet PO 15 mg QAM BETTYE Administration Buspirone
--- NOTE | 2024-01-01 08:34 | WPDANESPN ---
Anes - Prog Note Post-Op Date/Time: 01/01/24 08:34 Vital Signs: Last Vital Signs Temp 36.9 C 01/01/24 06:22 Pulse 96 01/01/24 08:13 Resp 20 01/01/24 06:22 BP 126/78 01/01/24 06:22 Pulse Ox 98 01/01/24 06:22 O2 Del Method Room Air 01/01/24 03:35 O2 Flow Rate 6 12/31/23 15:05 Pain Score (VAS): 1 I/O: Intake & Output 12/31/23 01/01/24 01/01/24 23:59 07:59 15:59 Intake Total 1872.5 1200 Output Total 530 740 Balance 1342.5 460 Laboratory Tests 01/01/24 07:34 12/30/23 09:26 12/30/23 12/31/23 12/31/23 15:22 12:30 20:41 WBC RBC Hgb 7.9 L 8.6 L Hct 25.7 L 26.5 L MCV MCH MCHC RDW Plt Count MPV Immature Gran % (Auto) Neut % (Auto) Lymph % (Auto) Robertson % (Auto) Eos % (Auto) Baso % (Auto) Lymph # (Auto) Robertson # (Auto) Eos # (Auto) Baso # (Auto) Abs Immat Gran (auto) Absolute Neuts (auto) Absolute Nucleated RBC Nucleated RBC % Blood Type A Negative Antibody Screen Negative Crossmatch See Detail 01/01/24 07:34 WBC 8.9 RBC 2.82 L Hgb 8.0 L Hct 24.7 L MCV 87.6 MCH 28.4 MCHC 32.4 RDW 15.1 H Plt Count 279 MPV 9.8 Immature Gran % (Auto) 3.0 H Neut % (Auto) 70.8 Lymph % (Auto) 14.7 L Robertson % (Auto) 10.0 H Eos % (Auto) 1.2 Baso % (Auto) 0.3 Lymph # (Auto) 1.31 Robertson # (Auto) 0.9 H Eos # (Auto) 0.1 Baso # (Auto) 0.0 Abs Immat Gran (auto) 0.27 H Absolute Neuts (auto) 6.3 Absolute Nucleated RBC 0.020 H Nucleated RBC % 0.2 Blood Type Antibody Screen Crossmatch Microbiology 12/30/23 23:17 Blood Blood Culture - Preliminary 12/30/23 23:16 Blood Blood Culture - Preliminary Patient Feedback: Pt reports slight sore throat. Patient satisfied with anesthetic care.
--- NOTE | 2024-01-01 11:56 | PM.IMCN ---
Assessment and Plan Assessment and plan (1) Status post total hysterectomy and bilateral salpingo-oophorectomy: Code(s): Z90.710 - Acquired absence of both cervix and uterus; Z90.722 - Acquired absence of ovaries, bilateral; Z90.79 - Acquired absence of other genital organ(s) Status: Acute Assessment and Plan: - total laparoscopic hysterectomy and bilateral salpingo-oophorectomy done on 12/24/23 by Prabhjot GUZMAN - diagnostic laparoscopy done on 12/30/33 by Prabhjot GUZMAN which showed: Large clot in the pelvis extending around the rectum and up to the bladder dome. No certain evidence of abscess. About 500 cc of clot was removed.? A HERLINDA drain was placed in the pelvis. - Hgb 7.7 (presentation) -> 8.0 (most recent) - has received 2 units of PRBCs - started on Ancef and metronidazole on 12/31/23 - peak temp of 101.4 ? F on 12/29 (transfusion reaction vs infection), afebrile today - blood cultures obtained on 12/29, no growth to date - HERLINDA drain with 30 mL of output overnight and 25 mL so far today - currently feeling improved, reduced pressure in pelvis, no fever today, pain well controlled - continue to trend labs (2) Anemia: Qualifiers: Anemia type: other cause Other causes of anemia: acute posthemorrhagic Qualified Code(s): D62 - Acute posthemorrhagic anemia Code(s): D64.9 - Anemia, unspecified Status: Acute Assessment and Plan: - Hgb 7.7 (presentation) -> 8.0 (most recent) - MCV 87.6, MCHC 32.4 - suspect this is secondary to post-operative hematoma - continue to trend CBC (3) Fatty liver: Code(s): K76.0 - Fatty (change of) liver, not elsewhere classified Status: Acute Assessment and Plan: - 12/29 labs: total bilirubin 4.0 AST 49 ALT 74 - post transfusion total bilirubin 4.4 and 3.7 - add hepatitis panel (4) Benign essential hypertension: Code(s): I10 - Essential (primary) hypertension Status: Acute Assessment and Plan: - chronic, currently 126/78 - continue home medications: Lisinopril 10 mg daily, metoprolol 150 mg daily ER - monitor (5) Prediabetes: Code(s): R73.03 - Prediabetes Status: Acute Assessment and Plan: - prediabetic - home medication resumed - continued metformin 500 b.i.d. - A1C 5.5% on 08/27/23 Plan Underwent total hysterectomy on 12/24/2023. Return to the ED on 12/29 with postoperative pain, dizziness, fever, difficulty urinating, and constipation. CT showed gas and hematoma in the area of the recent hysterectomy. Underwent a diagnostic laparoscopy on 12 30 which showed a large clot in the pelvis, 500 cc of clot were extracted, and a HERLINDA drain is placed. Patient remains anemic, most recent hemoglobin 8.0. Feeling improved. Diet: regular GI Prophylaxis: Pantoprazole p.o. DVT Prophylaxis: SCDs Lines: Peripheral Code Status: Full code HPI Date of Consult Consult date: 01/01/24 Requesting Physician: Indra Rick MD Primary Care Provider: Deedee Long MD Consult Narrative Reason for consult: Second Opinion Narrative: 38 y/o F presented here with postoperative pain, dizziness, nausea, and fever with PMH of HTN, IBS, fibromyalgia, frequent PVCs (follows with cards here), sleep apnea (CPAP), migraines, depression, and panic disorder. Patient presented to [facility] ED on 12/30/2023 for postoperative pain, dizziness, nausea without vomiting, chills, fever, difficulty urinating, and constipation. Patient underwent a laparoscopic hysterectomy on 12/24/2023 at [facility], performed by Prabhjot GUZMAN. Underwent procedure due to fibroids which had caused severe pain. Patient was able to be discharged on 12/25/2023 with no immediate postoperative complications identified. Patient reported difficulty urinating shortly after the hysterectomy and would have to bear down to urinate. Patient then returned on 12/30/2023 with complaints listed above. CT of the abd/pelvis showed gas and he
[2024-01-01 14:40] VITALS: BP 140/89; PULSE 88; RESP 18; TEMP 37.5; O2SAT 100
[2024-01-01 14:54] LABS: Hepatitis B Surface Antigen Negative (Negative)
[2024-01-01 14:59] LABS: HAV RESULT Negative (Negative); Hepatitis B Core IgM Result Negative (Negative)
[2024-01-01 15:11] LABS: Hepatitis C Virus Antibody Negative (Negative)
[2024-01-01 18:06] VITALS: TEMP 36.4
[2024-01-01 20:00] VITALS: O2SAT 100
[2024-01-01 20:47] VITALS: BP 140/64; PULSE 98; RESP 16; TEMP 37; O2SAT 100
[2024-01-01] MEDS: MIRTAZAPINE 15 MG TABLET PO (20:59)
[2024-01-01] MEDS: busPIRone HCL 10 MG TABLET 30 MG PO (20:59)
[2024-01-02] MEDS: DOCUSATE SODIUM 100 MG CAPSULE PO ×3 (00:45→19:45)
[2024-01-02] MEDS: metroNIDAZOLE 500 MG/ISO 100ML 500 MG/100 ML BAG 100 MG IVPB ×3 (05:23→20:22)
[2024-01-02] MEDS: HYDROmorphone HCL INJ (*CRX) 1 MG/ML SYR IV PUSH (05:24)
[2024-01-02 05:36] VITALS: BP 127/69; PULSE 88; RESP 20; TEMP 36.6; O2SAT 99
[2024-01-02] MEDS: oxyCODONE/ACETAMINOPHEN (*CRX) 5-325 MG TABLET PO ×3 (05:59→19:45)
[2024-01-02 07:48] LABS: Hematocrit 28.3 % (37.0-47.0); Hemoglobin 8.8 g/dL (12.0-15.0); Mean Corpuscular HGB Conc 31.1 g/dl (32-36); Mean Corpuscular Hemoglobin 27.8 pg (26-34); Mean Corpuscular Volume 89.6 fl (80-100); Platelet Count Result 351 k/mm3 (150-375); Red Blood Count 3.16 M/mm3 (4.2-5.4); Red Cell Distribution Width 15.3 % (11.5-14.5); White Blood Count 9.8 K/mm3 (4.5-10.0)
--- NOTE | 2024-01-02 08:26 | P.CDI_ITS ---
CDI Query Clarification Request Documentation in the medical record indicates that this patient has: BMI 46.5 Based on your medical judgement, can you further clarify in the progress notes the diagnosis associated with these findings such as: * Overweight * Obesity * Morbid Obesity * Other condition (please specify) * None of the above/ Not applicable
--- NOTE | 2024-01-02 08:26 | WPDCDIQUERY2 ---
CDI Query Clarification Request Documentation in the medical record indicates that this patient has: BMI 46.5 Based on your medical judgement, can you further clarify in the progress notes the diagnosis associated with these findings such as: Overweight Obesity Morbid Obesity Other condition (please specify) None of the above/ Not applicable
[2024-01-02 08:33] VITALS: PULSE 80
[2024-01-02] MEDS: METOPROLOL SUCCINATE EXT REL 50 MG TABCR 150 MG PO (08:33)
[2024-01-02] MEDS: estradioL 1 MG TABLET PO (08:33)
[2024-01-02] MEDS: TRIAMTERENE 37.5 MG/HCTZ 25 MG (MAXZIDE) TABLET 1 TAB PO (08:33)
[2024-01-02] MEDS: lisinopriL 10 MG TABLET PO (08:34)
[2024-01-02] MEDS: PANTOPRAZOLE 40 MG TABLET PO (08:34)
[2024-01-02] MEDS: metFORMIN HCL XR 500 MG TAB.SR.24H PO ×2 (08:34→15:53)
[2024-01-02] MEDS: MULTIVITAMINS THERAPEUTIC TAB (*BKC) 1 TABLET PO (08:34)
[2024-01-02] MEDS: busPIRone HCL 5 MG TABLET 15 MG PO (08:34)
[2024-01-02] MEDS: ceFAZolin 2 GM/D5W 50 ML 2 GM/50 ML BAG IVPB ×3 (08:42→23:05)
[2024-01-02] MEDS: ONDANSETRON INJ 4 MG/2 ML VIAL 8 MG IV PUSH (08:51)
[2024-01-02 09:57] LABS: Alanine Aminotransferase 39 U/L (6-35); Albumin Level 3.4 g/dL (3.5-5.1); Alkaline Phosphatase 78 U/L (38-126); Anion Gap 6 mmol/L (4-12); Aspartate Amino Transferase 34 U/L (14-36); Bilirubin,Total 1.3 mg/dL (0.2-1.3); Blood Urea Nitrogen 12 mg/dL (7-17); Calcium 8.7 mg/dL (8.4-10.2); Carbon Dioxide 26 mmol/L (22-30); Chloride 106 mmol/L (98-107); Estimated CRCL calculation 138 ml/min; Estimated Glomerular Filt Rate > 60; Glucose 97 mg/dL (65-110); Potassium 3.3 mmol/L (3.4-5.0); Sodium 138 mmol/L (137-145)
--- NOTE | 2024-01-02 12:37 | WPDHPUPDATE1 ---
History and Physical Update Update Date/Time: 01/02/24 12:37 History and Physical has been reviewed, including an updated exam of the patient. There are NO changes in the patient's condition. Risks, benefits, and alternatives have been discussed and questions answered. Patient agrees to proceed with procedure.
--- NOTE | 2024-01-02 12:57 | PM.IMPN ---
Progress Note: A&P Assessment and Plan (1) Status post total hysterectomy and bilateral salpingo-oophorectomy: Code(s): Z90.710 - Acquired absence of both cervix and uterus; Z90.722 - Acquired absence of ovaries, bilateral; Z90.79 - Acquired absence of other genital organ(s) Status: Acute Assessment and Plan: 12/01/23: - total laparoscopic hysterectomy and bilateral salpingo-oophorectomy done on 12/24/23 by Prabhjot GUZMAN - diagnostic laparoscopy done on 12/30/33 by Prabhjot GUZMAN which showed: Large clot in the pelvis extending around the rectum and up to the bladder dome. No certain evidence of abscess. About 500 cc of clot was removed.? A HERLINDA drain was placed in the pelvis. - Hgb 7.7 (presentation) -> 8.0 (most recent) - has received 2 units of PRBCs - started on Ancef and metronidazole on 12/31/23 - peak temp of 101.4 ? F on 12/29 (transfusion reaction vs infection), afebrile today - blood cultures obtained on 12/29, no growth to date - HERLINDA drain with 30 mL of output overnight and 25 mL so far today - currently feeling improved, reduced pressure in pelvis, no fever today, pain well controlled - continue to trend labs 12/02/23: Managed by per diem clerk Service is HERLINDA pulled out by OB/GTN today Reporting abdominal pain and has concerns for further complications. We will repeat CT scan to rule out any potential issues. Started miralax for constipation (2) Anemia: Qualifiers: Anemia type: other cause Other causes of anemia: acute posthemorrhagic Qualified Code(s): D62 - Acute posthemorrhagic anemia Code(s): D64.9 - Anemia, unspecified Status: Acute Assessment and Plan: 12/01/23: - Hgb 7.7 (presentation) -> 8.0 (most recent) - MCV 87.6, MCHC 32.4 - suspect this is secondary to post-operative hematoma - continue to trend CBC 12/02/23: Hgb 8.8 today continue to trend (3) Fatty liver: Code(s): K76.0 - Fatty (change of) liver, not elsewhere classified Status: Acute Assessment and Plan: 12/01/23: - 12/29 labs: total bilirubin 4.0 AST 49 ALT 74 - post transfusion total bilirubin 4.4 and 3.7 - add hepatitis panel 12/02/23: Total bili 1.3 Hepatitis panel was negative Liver enzymes trending back to baseline (4) Benign essential hypertension: Code(s): I10 - Essential (primary) hypertension Status: Acute Assessment and Plan: 12/01/23: - chronic, currently 126/78 - continue home medications: Lisinopril 10 mg daily, metoprolol 150 mg daily ER - monitor 12/02/23: Pressures ranging 127/69 to 140/64 Continue with current treatment (5) Prediabetes: Code(s): R73.03 - Prediabetes Status: Acute Assessment and Plan: 12/01/23: - prediabetic - home medication resumed - continued metformin 500 b.i.d. - A1C 5.5% on 08/27/23 12/02/23: Continue metformin (6) Obesity: Code(s): E66.9 - Obesity, unspecified Status: Acute Assessment and Plan: 12/02/23: BMI 46.5, 122.9kg Time Spent With Patient Time with patient: Greater than 35 minutes Subjective Date/time seen: 01/02/24 12:57 Interval history: This is a 38-year-old female who presented to the hospital on 12/30/2023 with postoperative pain, dizziness, nausea without vomiting, chills, fever, difficulty urinating, and constipation. Patient underwent a laparoscopic hysterectomy on 12/24/2023 at [facility] with Dr. Rick. CT of the abdomen pelvis this admission showed gas and hematoma in the area of the recent hysterectomy, as well as diffuse hepatic steatosis. Patient was admitted under per diem clerk service and underwent a diagnostic lap by Dr. Rick. Procedure revealed a large caught the pelvis extending around the rectum and up into the bladder dome without certain evidence of abscess. Five hundred mil of clot was removed and a HERLINDA drain was placed. We were consulted for medical management. Patient states she had some nausea this morning and rates her pain at a 5
[2024-01-02 13:51] VITALS: BP 150/93; PULSE 105; RESP 18; TEMP 35.6; O2SAT 100
[2024-01-02] MEDS: polyethylene glycoL 3350 17 GM POWD.PACK PO (14:41)
[2024-01-02] MEDS: POTASSIUM CHLORIDE 20 MEQ ER TABLET 40 MEQ PO (14:41)
--- NOTE | 2024-01-02 19:23 | PM.OBPNVD ---
OB - PN: Subj Subjective Date/time seen: 01/02/24 17:23 Interval history: Patient reports some improvement in pain. CT scan unremarkable, complex fluid collection seen is likely mixture of residual clot and irrigation from surgery. No fevers or chills currently. IM service started miralax for constipation today, has not yet had bowel movement. OB - PN: Obj Data Labs 01/02/24 06:24 01/02/24 06:24 Labs: Laboratory Results - last 24 hr 01/02/24 06:24 WBC 9.8 RBC 3.16 L Hgb 8.8 L Hct 28.3 L MCV 89.6 MCH 27.8 MCHC 31.1 L RDW 15.3 H Plt Count 351 MPV 10.0 Sodium 138 Potassium 3.3 L Chloride 106 Carbon Dioxide 26 Anion Gap 6 BUN 12 Creatinine 0.60 L Estim Creat Clear Calc 138 Estimated GFR > 60 Glucose 97 Calcium 8.7 Total Bilirubin 1.3 AST 34 ALT 39 H Alkaline Phosphatase 78 Total Protein 7.0 Albumin 3.4 L Imaging Radiologist's impression: Impressions Abdomen/Pelvis CT 01/02/24 14:25 IMPRESSION: 1. Resolution of prior casting significant interval decrease in a few now small collections of complex fluid likely postoperative hematoma/seroma in the deep pelvis at the site of a prior hysterectomy. 2. Diffuse hepatic steatosis. OB - PN A/P Assessment and Plan (1) Status post total hysterectomy and bilateral salpingo-oophorectomy: Code(s): Z90.710 - Acquired absence of both cervix and uterus; Z90.722 - Acquired absence of ovaries, bilateral; Z90.79 - Acquired absence of other genital organ(s) Status: Acute (2) Hematoma: Code(s): T14.8XXA - Other injury of unspecified body region, initial encounter Status: Acute Assessment and Plan: - no evidence of expanding pelvic hematoma - pain improved - CT scan with complex fluid collection, likely residual clot and irrigation from surgery - discussed with hospitalist service who will take over as primary team at this time - emphasized importance of 6 week post op visit either at primary surgeon's office or other OBGYN office if patient prefers (3) Anemia: Qualifiers: Anemia type: other cause Other causes of anemia: acute posthemorrhagic Qualified Code(s): D62 - Acute posthemorrhagic anemia Code(s): D64.9 - Anemia, unspecified Status: Acute Time Spent With Patient Time: Total time spent is greater than 50% in coordination of care (as documented) at patient's floor/unit and/or counseling patient: Review of Systems Review of Systems: All systems reviewed & are unremarkable except as noted in HPI and below Exam Const: General: no acute distress, alert and awake Resp: Effort & Inspection: normal respiratory effort
[2024-01-02] MEDS: busPIRone HCL 10 MG TABLET 30 MG PO (19:46)
[2024-01-02] MEDS: MIRTAZAPINE 15 MG TABLET PO (19:49)
[2024-01-02] MEDS: SIMETHICONE 125 MG CHEW TAB PO (19:49)
[2024-01-02 20:00] VITALS: O2SAT 100
[2024-01-02 21:44] VITALS: BP 167/90; PULSE 98; RESP 20; TEMP 36.5; O2SAT 100
[2024-01-02] MEDS: ALPRAZolam (*CRX) 0.25 MG TABLET PO (21:45)
[2024-01-02] MEDS: BISACODYL 10 MG SUPPOSITORY RECTAL (22:00)
[2024-01-03] MEDS: SIMETHICONE 125 MG CHEW TAB PO (04:53)
[2024-01-03] MEDS: oxyCODONE/ACETAMINOPHEN (*CRX) 5-325 MG TABLET PO (04:53)
[2024-01-03] MEDS: metroNIDAZOLE 500 MG/ISO 100ML 500 MG/100 ML BAG 100 MG IVPB (04:53)
[2024-01-03 06:00] VITALS: BP 147/96; PULSE 108; RESP 22; TEMP 36.8; O2SAT 93
[2024-01-03] MEDS: DOCUSATE SODIUM 100 MG CAPSULE PO (08:07)
[2024-01-03] MEDS: PANTOPRAZOLE 40 MG TABLET PO (08:07)
[2024-01-03] MEDS: MULTIVITAMINS THERAPEUTIC TAB (*BKC) 1 TABLET PO (08:07)
[2024-01-03] MEDS: TRIAMTERENE 37.5 MG/HCTZ 25 MG (MAXZIDE) TABLET 1 TAB PO (08:07)
[2024-01-03] MEDS: estradioL 1 MG TABLET PO (08:07)
[2024-01-03] MEDS: METOPROLOL SUCCINATE EXT REL 50 MG TABCR 150 MG PO (08:07)
[2024-01-03] MEDS: lisinopriL 10 MG TABLET PO (08:07)
[2024-01-03] MEDS: metFORMIN HCL XR 500 MG TAB.SR.24H PO (08:07)
[2024-01-03] MEDS: ACETAMINOPHEN 325 MG TABLET 650 MG PO (08:07)
[2024-01-03] MEDS: busPIRone HCL 5 MG TABLET 15 MG PO (08:08)
[2024-01-03] MEDS: polyethylene glycoL 3350 17 GM POWD.PACK PO (08:08)
[2024-01-03] MEDS: ceFAZolin 2 GM/D5W 50 ML 2 GM/50 ML BAG IVPB (08:08)
--- NOTE | 2024-01-03 09:06 | PM.DS ---
DS: Admitting Diagnosis Discharge Date 01/03/24 Admitting Diagnosis Status post total hysterectomy and bilateral salpingo-oophorectomy anemia fatty liver Benign essential hypertension Prediabetes DS: Discharge Diagnosis Discharge Diagnosis (1) Status post total hysterectomy and bilateral salpingo-oophorectomy: Code(s): Z90.710 - Acquired absence of both cervix and uterus; Z90.722 - Acquired absence of ovaries, bilateral; Z90.79 - Acquired absence of other genital organ(s) Status: Acute (2) Anemia: Qualifiers: Anemia type: other cause Other causes of anemia: acute posthemorrhagic Qualified Code(s): D62 - Acute posthemorrhagic anemia Code(s): D64.9 - Anemia, unspecified Status: Acute (3) Fatty liver: Code(s): K76.0 - Fatty (change of) liver, not elsewhere classified Status: Acute (4) Benign essential hypertension: Code(s): I10 - Essential (primary) hypertension Status: Acute (5) Prediabetes: Code(s): R73.03 - Prediabetes Status: Acute (6) Obesity: Code(s): E66.9 - Obesity, unspecified Status: Acute DS: Summary Hospital Course Reason for hospitalization: Status post total hysterectomy and bilateral salpingo-oophorectomy anemia fatty liver Benign essential hypertension Prediabetes Hospital Course: 12/02/23: This is a 38-year-old female who presented to the hospital on 12/30/2023 with postoperative pain, dizziness, nausea without vomiting, chills, fever, difficulty urinating, and constipation.? Patient underwent a laparoscopic hysterectomy on 12/24/2023 at [facility] with Dr. Rick.? CT of the abdomen pelvis this admission showed gas and hematoma in the area of the recent hysterectomy, as well as diffuse hepatic steatosis.? Patient was admitted under director environmental service and underwent a diagnostic lap by Dr. Rick.? Procedure revealed a large caught the pelvis extending around the rectum and up into the bladder dome without certain evidence of abscess.? Five hundred mil of clot was removed and a HERLINDA drain was placed. ? We were consulted for medical management. Patient states she had some nausea this morning and rates her pain at a 5/10 in her abdomen otherwise no other complaints. She does state that she has not had a bowel movement since the day after the first surgery. We will start miralax on her today. Labs today revealed a normal white blood cell count of 9.8, hemoglobin 8.8, potassium 3.3. Today INVESTOR RELATIONS DIRECTOR discontinued the HERLINDA drain. 12/03/23: Patient denies any new complaints today. CT the abdomen pelvis yesterday was essentially unremarkable. Labs today show a white blood cell count of 11.3, hemoglobin 9.4, sodium 134, potassium 3.2 total bili was 1.4. Patient is stable for discharge at this time. She will need to follow up with director environmental in 6 weeks. She will also need to follow up with her primary care physician in 1 week. Final diagnosis: Status post total hysterectomy and bilateral salpingo-oophorectomy, anemia, post-op hematoma Status at Discharge Cognitive/behavioral status at discharge: Alert oriented x4 Functional status at discharge: independent ambulation Overall status at discharge: patient is progressing back to baseline Time Spent with Patient Time attestation: Total time spent providing and/or coordinating discharge services: Time spent: Greater than 30 minutes Exam Narrative: General: In no acute distress, well nourished Head: atraumatic, no encephalopathy Eyes: EOMI, PERRLA, sclera clear ENT: moist mucous membranes, nasal passages clear Neck: supple, no JVD, no adenopathy, trachea midline Cardiac: Normal S1 and S2, RRR, No murmur, gallops or friction rubs, peripheral pulses intact. Respiratory: Lungs clear to auscultation, no adventitious lung sounds, currently on room air Gastrointestinal: soft, non-distended, non-tender, hypoactive bowel sounds. She is passing gas, last BM greater than 7 days ago. Reported constipation :
[2024-01-03 10:16] LABS: Basophils Absolute Auto 0.1 K/mm3 (0.0-0.1); Basophils Percent Auto 0.5 % (0.2-1.2); Eosinophils Absolute Auto 0.4 K/mm3 (0-0.3); Eosinophils Percent Auto 3.6 % (0-4.4); Hematocrit 30.1 % (37.0-47.0); Hemoglobin 9.4 g/dL (12.0-15.0); Immature Granulocyte Absolute 0.27 K/mm3 (0.00-0.031); Immature Granulocyte Percent A 2.4 % (0-0.5); Lymphocytes Absolute Auto 2.26 K/mm3 (0.9-3.2); Mean Corpuscular HGB Conc 31.2 g/dl (32-36); Mean Corpuscular Hemoglobin 27.5 pg (26-34); Mean Platelet Volume 9.7 fl (7.4-10.4); Monocytes Absolute Auto 0.7 K/mm3 (0.1-0.6); Monocytes Percent Auto 6.1 % (2.6-8.5); Neutrophils Absolute Auto 7.6 K/mm3 (1.3-6.7); Neutrophils Percent Auto 67.4 % (45.5-73.1); Nucleated Red Blood Cells Perc 0.3 % (0.0-0.2); Platelet Count Result 417 k/mm3 (150-375); Red Blood Count 3.42 M/mm3 (4.2-5.4); White Blood Count 11.3 K/mm3 (4.5-10.0)
[2024-01-03 10:30] LABS: Alanine Aminotransferase 33 U/L (6-35); Albumin Level 3.6 g/dL (3.5-5.1); Alkaline Phosphatase 70 U/L (38-126); Anion Gap 4 mmol/L (4-12); Aspartate Amino Transferase 32 U/L (14-36); Bilirubin,Total 1.4 mg/dL (0.2-1.3); Blood Urea Nitrogen 9 mg/dL (7-17); Carbon Dioxide 29 mmol/L (22-30); Chloride 101 mmol/L (98-107); Estimated CRCL calculation 120 ml/min; Estimated Glomerular Filt Rate > 60; Glucose 138 mg/dL (65-110); Magnesium 2.1 mg/dL (1.6-2.3); Potassium 3.2 mmol/L (3.4-5.0); Sodium 134 mmol/L (137-145)
== END 2024-01-03 12:45 | disposition home or self-care (01) | DRG 908 ==
LOC: ANHED 11:29 → ANH3MEDSUR 11:56
PROVIDERS: Student in an Organized Health Care Education/Training Program; Admitting Provider Obstetrics & Gynecology; Emergency Provider Nurse Practitioner Family; PCP Family Medicine; Visit Provider Nurse Practitioner Acute Care
PROC: 0WCJ4ZZ Extirpation of Matter from Pelvic Cavity, Percutaneous Endoscopic Approach (ICD-10-PCS; CPT 49320; principal; 2023-12-31 11:30)
DX: N99.840 Postprocedural hematoma of a genitourinary system organ or structure following a genitourinary system procedure (principal); D62 Acute posthemorrhagic anemia; Z68.42 Body mass index [BMI] 45.0-49.9, adult; I10 Essential (primary) hypertension; K21.9 Gastro-esophageal reflux disease without esophagitis; K76.0 Fatty (change of) liver, not elsewhere classified; K58.9 Irritable bowel syndrome, unspecified; E66.9 Obesity, unspecified; R73.03 Prediabetes; M79.7 Fibromyalgia; F41.0 Panic disorder [episodic paroxysmal anxiety]; Z90.710 Acquired absence of both cervix and uterus; Z90.722 Acquired absence of ovaries, bilateral; Z87.891 Personal history of nicotine dependence
CPT/HCPCS: 36415; 36430; 74177; 80053; 80074; 81001; 82247; 83690; 83735; 85014; 85018; 85025; 85027; 86850; 86900; 86901; 86920; 87040; 96361; 96374; 96375; 99285; A9270; G0378; J0690; J1100; J1170; J1200; J1836; J2250; J2405; J2704; J3010; J7030; J7050; J7120; P9016; Q9967

== ENCOUNTER 2024-01-10 16:18 | Emergency (ER) | payer OTHER, SELFPAY ==
--- NOTE | ~2024-01-10 | CT_ITS ---
EXAMINATION: CT abdomen pelvis w con DATE: 01/10/2024 19:39 INDICATION: Pelvic pain. Hysterectomy 2 weeks ago. Right flank pain. TECHNIQUE: Computed tomography (CT) of the abdomen and pelvis was performed with 100 mL Omnipaque 350 intravenous contrast. Automated exposure control and iterative reconstruction technique were employe d. The dose-length product was 1531.82 mGy-cm. COMPARISON: CT abdomen and pelvis 01/02/2024 FINDINGS: The visualized portions of the lung bases demonstrate mild atelectasis. No pleural effusion . The heart size is normal. No pericardial effusion. The liver is normal. There are changes of cholec ystectomy. The spleen, pancreas, and adrenal glands are normal. There are no dilated loops of bowel. The appendix is normal. There are changes of hysterectomy. There are three rim-enhancing fluid collec tions in the surgical bed measuring 5.5 x 1.5 x 1.9 cm, 3.5 x 2.2 x 2.0 cm, and 1.6 x 1.6 x 1.3 cm, r espectively. There are no pathologically enlarged lymph nodes. There is mild thoracic and lumbar spon dylosis. IMPRESSION: 1. Three rim-enhancing fluid collections in the posthysterectomy surgical bed with slight improvement , likely subacute hematomas. Infection is not excluded. Reviewed, dictated and finalized at location E. IMPRESSION: 1. Three rim-enhancing fluid collections in the posthysterectomy surgical bed w ith slight improvement, likely subacute hematomas. Infection is not excluded.
[2024-01-10 16:20] VITALS: BP 137/82; PULSE 92; RESP 18; TEMP 36.3; O2SAT 98
--- NOTE | 2024-01-10 18:18 | ED.GENADULT ---
HPI - General Adult General Chief complaint: Recheck/Abnormal Lab/Rx Stated complaint: pelvic pain Time Seen by Provider: 01/10/24 18:10 Source: patient Mode of arrival: ambulatory Limitations: no limitations History of Present Illness HPI narrative: This is a 38-year-old female who is s/p 2 weeks 2 separate gynecological surgical procedures. Initially had CANDELARIA -BSO, and then 1 week later had subsequent hematoma drainage and removal. She is now 2 weeks out from surgery and complaining today of pelvic pain. Patient reports that she is also having dysuria with burning at the end of the urinary stream. patient reports spasm-like pains to the pelvis and bladder area. She states sometimes pain radiates up into the right flank. She was initially treated with antibiotics after surgery and developed these infection, and took Diflucan for this. Denies any current vaginal discharge. Does note 1 singular episode of vaginal bleeding. also endorses constipation. denies fevers, chills, nausea, vomiting, diarrhea, chest pain, shortness of breath, cough. Patient states that she was taking her Percocet as prescribed by surgeon but still was having pain on top of this med. Related Data Home Medications Medication Instructions Recorded Confirmed lisinopril 10 mg tablet 10 mg PO DAILY 10/11/22 01/09/24 metoprolol succinate 50 mg 150 mg PO DAILY 10/11/22 01/09/24 tablet,extended release 24 hr multivitamin 1 tablet PO DAILY 12/22/23 01/09/24 buspirone 15 mg tablet 15 mg PO BID 12/30/23 01/09/24 metformin 500 mg tablet,extended 500 mg PO BID 12/30/23 01/09/24 release 24hr (osmotic) mirtazapine 15 mg tablet 15 mg PO HS 12/30/23 01/09/24 Allergies Allergy/AdvReac Type Severity Reaction Status Date / Time amlodipine Allergy Unknown peripheral Verified 01/10/24 16:24 edema promethazine Allergy Unknown Skin Verified 01/10/24 16:24 Reaction nirmatrelvir [From Paxlovid] AdvReac Severe cardiac Verified 01/10/24 16:24 ritonavir [From Paxlovid] AdvReac Severe cardiac Verified 01/10/24 16:24 latex AdvReac Itching Verified 01/10/24 16:24 Review of Systems Review of Systems: All systems as dictated in [facility] Past Medical History Medical History Acute gastritis Benign essential hypertension Bruxism Chest wall pain COVID Ear itching Endometriosis seen on candelaria/bso path 2023 Esophageal reflux Fibromyalgia Fungal otitis externa IBS (irritable bowel syndrome) Nasal congestion Otalgia of both ears Otitis externa of left ear Otitis externa of right ear Otorrhea, left ear Otorrhea, left ear Panic disorder without agoraphobia Prediabetes 3.9.22 hgba1c 5.9 PVC (premature ventricular contraction) Surgical History Surgical History H/O dilation and curettage H/O wisdom tooth extraction H/O: section History of placement of ear tubes Hx of cholecystectomy S/P CANDELARIA-BSO 3 Family History Family History Other Cerebrovascular accident Diabetes mellitus Family history of malignant neoplasm Hypertension Social History Social History Smoking packs per day: 1 Smoking cigarettes per day: 20.0 Years smoked: 5 Smoking pack-years: 5.00 Smoking status: Former smoker Alcohol intake: never Alcohol use details: occasionally Substance use: never Substance use type: does not use Other substance usage details: EDIBLES Do You Feel Safe in your Home?: Yes Lack of Transportation: No Lack of Food: Never True Current Housing: I Have Housing Concerned About Future Housing: No Difficulty Paying Gas/Electric Bills: No Difficulty Paying for Meds: No Currently Unemployed: No Education: Bachelor's Degree Difficulty w/ Childcare or Family Care: No Mar
[2024-01-10 18:29] VITALS: BP 136/83; PULSE 81; RESP 20; TEMP 36.2; O2SAT 100
[2024-01-10] MEDS: HYDROmorphone HCL INJ (*CRX) 1 MG/ML SYR 0.5 MG IV PUSH (19:03)
[2024-01-10] MEDS: ONDANSETRON INJ 4 MG/2 ML VIAL IV PUSH (19:03)
[2024-01-10 19:07] LABS: Basophils Absolute Auto 0.1 K/mm3 (0.0-0.1); Basophils Percent Auto 0.6 % (0.2-1.2); Eosinophils Absolute Auto 0.4 K/mm3 (0-0.3); Hematocrit 31.4 % (37.0-47.0); Immature Granulocyte Absolute 0.06 K/mm3 (0.00-0.031); Immature Granulocyte Percent A 0.5 % (0-0.5); Lymphocytes Percent Auto 22.7 % (18.3-44.2); Mean Corpuscular HGB Conc 31.8 g/dl (32-36); Mean Corpuscular Hemoglobin 27.2 pg (26-34); Mean Corpuscular Volume 85.3 fl (80-100); Mean Platelet Volume 10.1 fl (7.4-10.4); Monocytes Absolute Auto 0.9 K/mm3 (0.1-0.6); Monocytes Percent Auto 6.8 % (2.6-8.5); Neutrophils Absolute Auto 8.8 K/mm3 (1.3-6.7); Neutrophils Percent Auto 66.4 % (45.5-73.1); Platelet Count Result 580 k/mm3 (150-375); Red Blood Count 3.68 M/mm3 (4.2-5.4); Red Cell Distribution Width 14.8 % (11.5-14.5); White Blood Count 13.2 K/mm3 (4.5-10.0)
--- NOTE | 2024-01-10 19:15 | PC.NURSE ---
Report received from ALEX Antonio. Assumed care of patient at this time.
[2024-01-10 19:18] LABS: Alanine Aminotransferase 41 U/L (6-35); Albumin Level 4.3 g/dL (3.5-5.1); Alkaline Phosphatase 76 U/L (38-126); Anion Gap 10 mmol/L (4-12); Aspartate Amino Transferase 28 U/L (14-36); Blood Urea Nitrogen 13 mg/dL (7-17); Calcium 9.6 mg/dL (8.4-10.2); Carbon Dioxide 23 mmol/L (22-30); Chloride 101 mmol/L (98-107); Estimated CRCL calculation 120 ml/min; Estimated Glomerular Filt Rate > 60; Glucose 138 mg/dL (65-110); Lipase 90 U/L (23-300); Sodium 134 mmol/L (137-145)
[2024-01-10 19:19] LABS: Appearance Urine Cloudy (Clear); Bacteria Urine None Seen /hpf; Bilirubin Urine Negative (Negative); Blood Urine 3+ (Negative); Color Urine Dark Yellow (Yellow); Glucose Urine UA Negative (Negative); Ketones Urine Negative (Negative); Leukocyte Esterase Ur 2+ LEU/UL (Negative); Need Manual Microscopic Reviewed; Nitrate Urine Positive (Negative); Non Pathogenic Casts 0-2; Protein Urine Trace mg/dL (Negative); RBC Urine 51-100 /hpf (0-2); Specific Grav Ur 1.017 (1.001-1.035); Squamous Epithelial Cell Urine Occasional /hpf (Few); WBC Urine >100 /hpf (0-3); pH Urine 6.5 (5.0-9.0)
[2024-01-10 19:21] LABS: Add Urine Microscopic? YES
--- NOTE | 2024-01-10 19:28 | PC.NURSE ---
Patient in CT at this time.
[2024-01-10 20:10] VITALS: BP 145/85; PULSE 97; RESP 19; O2SAT 100
== END 2024-01-10 20:43 | disposition home or self-care (01) ==
PROVIDERS: Emergency Provider Physician Assistant; PCP Family Medicine
DX: N39.0 Urinary tract infection, site not specified (principal); I10 Essential (primary) hypertension; M79.7 Fibromyalgia; K21.9 Gastro-esophageal reflux disease without esophagitis; K58.9 Irritable bowel syndrome, unspecified; R73.03 Prediabetes; Z90.710 Acquired absence of both cervix and uterus; Z86.16 Personal history of COVID-19; Z87.891 Personal history of nicotine dependence; Z90.722 Acquired absence of ovaries, bilateral; Z90.79 Acquired absence of other genital organ(s); Z79.84 Long term (current) use of oral hypoglycemic drugs
CPT/HCPCS: 36415; 74177; 80053; 81001; 83690; 85025; 87086; 87088; 96365; 96375; 99284; J0696; J1170; J2405; Q9967

== ENCOUNTER 2024-02-04 08:08 | Outpatient (CLI) | payer OTHER, SELFPAY ==
--- NOTE | ~2024-02-04 | MMUS_ITS ---
EXAMINATION: MM diagnostic mercedes BI w nisha, US breast BI complete HISTORY: Bilateral upper inner quadrant and axillary pain for one year TECHNIQUE: ML, MLO and CC 3-D tomosynthesis images of both breasts were performed and synthetic 2-D i mages were generated. Magnification views of right breast. CAD analysis was submitted and interpreted . High resolution complete bilateral breast ultrasound examination including all 4 quadrants and suba reolar area of each breast was performed. COMPARISON: 09/27/2022 diagnostic bilateral mammogram and bilateral complete breast ultrasound examin ation BREAST PARENCHYMAL COMPOSITION: The breasts are heterogeneously dense, which may obscure small masses . FINDINGS: MAMMOGRAPHIC FINDINGS: New cluster of microcalcifications is noted in the posterior upper inner quadrant of the right breast . These appear likely due to benign calcified fat necrosis. No suspicious mass, architectural distortion, malignant calcification, skin thickening or retraction or significant new developing density in either breast is noted. ULTRASOUND: No suspicious mass or suspicious shadowing in either breast is evident. Right breast: There is a 2.6 x 3.7 x 2.5 mm circumscribed hypoechoic area at 4:00 3 cm from the nipple without inte rnal vascularity or associated posterior shadowing, likely benign. There is some shadowing in the are a which is thought most likely to be due to dense tissue. Follow-up ultrasound of this area is recommended. Left breast: 12:00 1 cm from nipple: 2.1 x 4 x 5 mm cyst 4:00: There is a dilated fluid distended duct measuring at least 3.5 cm length up to 6 mm diameter. IMPRESSION: 1. Probable benign findings 2. Six-month bilateral diagnostic mammogram and bilateral Limited breast ultrasound follow-up is yong mmended BI-RADS category 3, probably benign findings. Reviewed, dictated and finalized at location A. IMPRESSION: 1. Probable benign findings 2. Six-month bilateral diagnostic mammogram and bilateral Limited breast ultras ound follow-up is recommended BI-RADS category 3, probably benign findings.
== END 2024-02-04 08:09 ==
LOC: MICIMG 08:09
PROVIDERS: PCP Obstetrics & Gynecology; Referring Provider Family Medicine; Visit Provider Obstetrics & Gynecology
DX: N64.4 Mastodynia (principal); R92.8 Other abnormal and inconclusive findings on diagnostic imaging of breast
CPT/HCPCS: 76641; 77062; 77066; G0279

== ENCOUNTER 2024-02-04 20:01 | Emergency (ER) | payer OTHER, SELFPAY ==
--- NOTE | ~2024-02-04 | XR_ITS ---
EXAMINATION: XR chest 1V portable DATE: 02/04/2024 20:49 INDICATION: Chest pain TECHNIQUE: AP view of the chest was obtained. COMPARISON: Chest radiograph dated 09/04/2023 FINDINGS: The lungs remain clear with no focal airspace opacities, pulmonary edema, pleural effusion or pneumot horax. The cardiomediastinal silhouette is normal. Visualized bones and soft tissues are unremarkable . IMPRESSION: 1. No acute cardiopulmonary disease. Reviewed, dictated and finalized at location A.
--- NOTE | 2024-02-04 20:03 | ECG_ITS ---
SEE SCANNED COPY FOR CONFIRMED REPORT MTDD
[2024-02-04 20:25] VITALS: BP 141/86; PULSE 83; RESP 16; TEMP 36.6; O2SAT 98
[2024-02-04 20:40] VITALS: O2SAT 100
[2024-02-04 20:48] VITALS: PULSE 89
[2024-02-04 20:52] LABS: Basophils Absolute Auto 0.1 K/mm3 (0.0-0.1); Basophils Percent Auto 0.9 % (0.2-1.2); Eosinophils Absolute Auto 0.3 K/mm3 (0-0.3); Eosinophils Percent Auto 3.3 % (0-4.4); Hematocrit 40.6 % (37.0-47.0); Hemoglobin 13.4 g/dL (12.0-15.0); Immature Granulocyte Absolute 0.02 K/mm3 (0.00-0.031); Immature Granulocyte Percent A 0.2 % (0-0.5); Lymphocytes Absolute Auto 3.39 K/mm3 (0.9-3.2); Lymphocytes Percent Auto 42.1 % (18.3-44.2); Mean Corpuscular Volume 81.9 fl (80-100); Mean Platelet Volume 10.3 fl (7.4-10.4); Monocytes Absolute Auto 0.5 K/mm3 (0.1-0.6); Monocytes Percent Auto 6.1 % (2.6-8.5); Neutrophils Absolute Auto 3.8 K/mm3 (1.3-6.7); Neutrophils Percent Auto 47.4 % (45.5-73.1); Platelet Count Result 336 k/mm3 (150-375); Red Blood Count 4.96 M/mm3 (4.2-5.4); Red Cell Distribution Width 14.2 % (11.5-14.5); White Blood Count 8.1 K/mm3 (4.5-10.0)
[2024-02-04 21:03] LABS: Alanine Aminotransferase 52 U/L (6-35); Albumin Level 4.7 g/dL (3.5-5.1); Alkaline Phosphatase 59 U/L (38-126); Anion Gap 8 mmol/L (4-12); Aspartate Amino Transferase 32 U/L (14-36); Bilirubin,Total 0.9 mg/dL (0.2-1.3); Blood Urea Nitrogen 16 mg/dL (7-17); Calcium 9.5 mg/dL (8.4-10.2); Carbon Dioxide 22 mmol/L (22-30); Chloride 104 mmol/L (98-107); Estimated CRCL calculation 95 ml/min; Estimated Glomerular Filt Rate > 60; Glucose 127 mg/dL (65-110); INR 0.9; Lipase 171 U/L (23-300); Potassium 3.6 mmol/L (3.4-5.0); Prothrombin Time 12.9 Seconds (11.1-14.7); Sodium 134 mmol/L (137-145)
[2024-02-04 21:04] LABS: Partial Thromboplastin Time 32.9 Seconds (22.3-36.8)
[2024-02-04] MEDS: MAG HYDROX/AL HYDROX/SIMETH 30 ML UDC PO ×2 (21:06→22:05)
[2024-02-04 21:15] LABS: Troponin I < 0.012 ng/mL (0.000-0.034)
--- NOTE | 2024-02-04 21:31 | PC.NURSE ---
This RN called chemistry and added on BNP to blood already in lab. Spoke with Doris whom verbalized understanding.
[2024-02-04 21:56] LABS: NT Pro B Type Natriuretic Pept < 20 pg/mL (19.9-100)
[2024-02-04 22:06] VITALS: BP 137/76; PULSE 82; RESP 16; O2SAT 99
--- NOTE | 2024-02-04 22:55 | PC.NURSE ---
report given to ALEX rios at this time. pt moved from room 19 to room 3.
[2024-02-04 23:20] LABS: Troponin I < 0.012 ng/mL (0.000-0.034)
--- NOTE | 2024-02-04 23:57 | ED.GENADULT ---
HPI - General Adult General Chief complaint: Chest Pain Stated complaint: chest pain Time Seen by Provider: 02/04/24 20:38 History of Present Illness HPI narrative: this is a 38-year-old female history of fibromyalgia presenting with chest pain. At 7:00 p.m. the patient developed a burning/ pressure center chest. It is 810 intensity. She took some Tums pain is now improving. She says she has never experienced pain this before. Says was initially so she with shortness of breath. She denies fevers chills nausea vomiting diaphoresis or exertional component. No history of DVTs blood clots. patient had a total abdominal hysterectomy with a hematoma evacuation approximately 5weeks ago Related Data Home Medications Medication Instructions Recorded Confirmed lisinopril 10 mg tablet 10 mg PO DAILY 10/11/22 01/09/24 metoprolol succinate 50 mg 150 mg PO DAILY 10/11/22 01/09/24 tablet,extended release 24 hr multivitamin 1 tablet PO DAILY 12/22/23 01/09/24 buspirone 15 mg tablet 15 mg PO BID 12/30/23 01/09/24 mirtazapine 15 mg tablet 15 mg PO HS 12/30/23 01/09/24 Allergies Allergy/AdvReac Type Severity Reaction Status Date / Time amlodipine Allergy Unknown peripheral Verified 02/04/24 20:50 edema promethazine Allergy Unknown Skin Verified 02/04/24 20:50 Reaction nirmatrelvir [From Paxlovid] AdvReac Severe cardiac Verified 02/04/24 20:50 ritonavir [From Paxlovid] AdvReac Severe cardiac Verified 02/04/24 20:50 latex AdvReac Itching Verified 02/04/24 20:50 PMFSH Past Medical History Medical History Acute gastritis Benign essential hypertension Bruxism Chest wall pain COVID Ear itching Endometriosis seen on candelaria/bso path 2023 Esophageal reflux Fibromyalgia Fungal otitis externa IBS (irritable bowel syndrome) Nasal congestion Otalgia of both ears Otitis externa of left ear Otitis externa of right ear Otorrhea, left ear Otorrhea, left ear Panic disorder without agoraphobia Prediabetes 3.9.22 hgba1c 5.9 PVC (premature ventricular contraction) Surgical History Surgical History H/O dilation and curettage H/O wisdom tooth extraction H/O: section History of placement of ear tubes Hx of cholecystectomy S/P CANDELARIA-BSO 3 Family History Family History Other Cerebrovascular accident Diabetes mellitus Family history of malignant neoplasm Hypertension Social History Social History Smoking packs per day: 1 Smoking cigarettes per day: 20.0 Years smoked: 5 Smoking pack-years: 5.00 Smoking status: Former smoker Alcohol intake: never Alcohol use details: occasionally Substance use: never Substance use type: does not use Other substance usage details: EDIBLES Do You Feel Safe in your Home?: Yes Lack of Transportation: No Lack of Food: Never True Current Housing: I Have Housing Concerned About Future Housing: No Difficulty Paying Gas/Electric Bills: No Difficulty Paying for Meds: No Currently Unemployed: No Education: Bachelor's Degree Difficulty w/ Childcare or Family Care: No Living arrangements: with family Spiritual care concerns: No Exam Narrative: APPEARANCE: No apparent distress. Head: atraumatic. EYES: EOMI, NOSE: Atraumatic NECK: Trachea midline RESPIRATORY: No increased rate of breathing CTAB CARDIOVASCULAR: RRR, no peripheral edema ABDOMINAL: Non-distended soft nontender MUSCULOSKELETAl: No obvious deformities NEURO: Alert. Moving 4/4 extremities SKIN:: Warm, dry. Normal color PSYCHIATRIC: Normal affect Course Vital Signs Vital signs: Vital Signs Temperature 97.9 F 02/04/24 20:25 Pulse Rate 83 02/04/24 20:25 Respiratory Rate 16 02/04/24 20:25 Blood Pressure 141/86 H 02/04/24 20:25
== END 2024-02-05 00:22 | disposition home or self-care (01) ==
PROVIDERS: Emergency Provider Emergency Medicine; PCP Obstetrics & Gynecology
DX: R07.89 Other chest pain (principal); I10 Essential (primary) hypertension; R73.03 Prediabetes; K21.9 Gastro-esophageal reflux disease without esophagitis; M79.7 Fibromyalgia; K58.9 Irritable bowel syndrome, unspecified; Z86.16 Personal history of COVID-19; Z90.49 Acquired absence of other specified parts of digestive tract; Z87.891 Personal history of nicotine dependence; R94.31 Abnormal electrocardiogram [ECG] [EKG]
CPT/HCPCS: 36415; 71045; 80053; 83690; 83880; 84484; 85025; 85380; 85610; 85730; 93005; 99284; A9270

== ENCOUNTER 2024-03-15 14:28 | Outpatient (CLI) | payer OTHER, SELFPAY ==
--- NOTE | ~2024-03-15 | US_ITS ---
EXAMINATION: US axilla RT DATE: 03/15/2024 14:43 INDICATION: Localized swelling, mass or lump at the right axilla TECHNIQUE: Multiple grayscale and Doppler ultrasound images of the abdomen were obtained. COMPARISON: 09/04/2023, 07/03/2023 and 08/27/2022 FINDINGS: No significant change in 3 mildly large right axillary lymph nodes which measure up to 1-1.1 cm in ma ximal short axis diameters but with normal prominent central fatty india. IMPRESSION: 1. No significant change since 08/27/2022 in a few minimally enlarged likely reactive right axillary lymph nodes which retain prominent central fatty india. Reviewed, dictated and finalized at location A. IMPRESSION: 1. No significant change since 08/27/2022 in a few minimally enlarged likely re active right axillary lymph nodes which retain prominent central fatty india.
== END 2024-03-15 14:29 ==
LOC: GOSHIMG 14:29
PROVIDERS: PCP Family Medicine; Visit Provider Family Medicine
DX: R22.31 Localized swelling, mass and lump, right upper limb (principal)
CPT/HCPCS: 76882

== ENCOUNTER 2024-04-19 10:09 | Outpatient (CLI) | payer OTHER, SELFPAY ==
[2024-04-19 14:47] LABS: Basophils Absolute Auto 0.1 K/mm3 (0.0-0.1); Basophils Percent Auto 1.1 % (0.2-1.2); Eosinophils Absolute Auto 0.3 K/mm3 (0-0.3); Eosinophils Percent Auto 3.5 % (0-4.4); Hematocrit 44.5 % (37.0-47.0); Hemoglobin 14.7 g/dL (12.0-15.0); Immature Granulocyte Absolute 0.03 K/mm3 (0.00-0.031); Immature Granulocyte Percent A 0.4 % (0-0.5); Lymphocytes Absolute Auto 2.63 K/mm3 (0.9-3.2); Lymphocytes Percent Auto 31.4 % (18.3-44.2); Mean Corpuscular Hemoglobin 26.2 pg (26-34); Mean Corpuscular Volume 79.3 fl (80-100); Mean Platelet Volume 10.5 fl (7.4-10.4); Monocytes Absolute Auto 0.6 K/mm3 (0.1-0.6); Monocytes Percent Auto 7.6 % (2.6-8.5); Neutrophils Absolute Auto 4.7 K/mm3 (1.3-6.7); Platelet Count Result 322 k/mm3 (150-375); Red Blood Count 5.61 M/mm3 (4.2-5.4); Red Cell Distribution Width 14.8 % (11.5-14.5); White Blood Count 8.4 K/mm3 (4.5-10.0)
[2024-04-19 15:11] LABS: CRP 1.1 mg/dL (<1.0)
[2024-04-19 15:16] LABS: Erythrocyte Sedimentation Rate 8 mm/hr (0-20)
[2024-04-19 15:30] LABS: Alanine Aminotransferase 38 U/L (6-35); Albumin Level 4.2 g/dL (3.5-5.1); Alkaline Phosphatase 59 U/L (38-126); Anion Gap 10 mmol/L (4-12); Aspartate Amino Transferase 51 U/L (14-36); Bilirubin,Total 0.9 mg/dL (0.2-1.3); Blood Urea Nitrogen 18 mg/dL (7-17); Carbon Dioxide 25 mmol/L (22-30); Chloride 101 mmol/L (98-107); Cholesterol 171 mg/dL (0-200); Estimated Glomerular Filt Rate > 60; Glucose 97 mg/dL (65-110); HDL Direct 41 mg/dL; Potassium 3.6 mmol/L (3.4-5.0); Sodium 136 mmol/L (137-145); Triglycerides 302 mg/dL (<150)
[2024-04-19 15:42] LABS: LDL Cholesterol Direct 98 mg/dL
[2024-04-19 16:23] LABS: Hemoglobin A1C 5.7 % (<5.7)
[2024-04-20 14:18] LABS: ANA Cascade Screen NEGATIVE (NEGATIVE)
== END 2024-04-19 10:10 | disposition home or self-care (01) ==
LOC: ANHGOSHLAB 10:10
PROVIDERS: Nurse Practitioner Family; PCP Family Medicine; Visit Provider Family Medicine
DX: D62 Acute posthemorrhagic anemia (principal); R73.03 Prediabetes; K76.0 Fatty (change of) liver, not elsewhere classified; E87.1 Hypo-osmolality and hyponatremia; M62.89 Other specified disorders of muscle; M79.7 Fibromyalgia
CPT/HCPCS: 36415; 80048; 80061; 80076; 82607; 82728; 83036; 85025; 85652; 86038; 86140; 86225; 86235; 86364

== ENCOUNTER 2024-05-07 11:00 | Emergency (ER) | payer OTHER, SELFPAY ==
--- NOTE | 2024-05-07 11:06 | ED.FEMALEGU ---
HPI - Female Genitourinary General Chief complaint: Urogenital-Female Stated complaint: UTI/Vaginal Problem Time Seen by Provider: 05/07/24 11:12 Source: patient, RN notes reviewed and old records reviewed Mode of arrival: ambulatory Limitations: no limitations History of Present Illness HPI Narrative: 39-year-old female presents to the [facility] with concerns for a UTI. Reports she has had discomfort, pain with urination. Patient states it feels like last time she had a UTI and a yeast infection Patient denies any abdominal pain. Denies fevers. Denies any nausea vomiting. No CVA tenderness Symptoms started yesterday Patient denies concerns for STIs, denies chance of , hysterectomy Onset (ago): day(s) (1) Related Data Home Medications Medication Instructions Recorded Confirmed lisinopril 10 mg tablet 10 mg PO DAILY 10/11/22 05/07/24 multivitamin 1 tablet PO DAILY 12/22/23 05/07/24 buspirone 15 mg tablet 15 mg PO BID 12/30/23 05/07/24 mirtazapine 15 mg tablet 15 mg PO HS 12/30/23 05/07/24 cyclobenzaprine 10 mg tablet 10 mg PO DAILY 03/11/24 05/07/24 omega-3 fatty acids 1,000 mg 1,000 mg PO DAILY 04/22/24 05/07/24 capsule Allergies Allergy/AdvReac Type Severity Reaction Status Date / Time amlodipine Allergy Unknown peripheral Verified 05/07/24 11:05 edema promethazine Allergy Unknown Skin Verified 05/07/24 11:05 Reaction nirmatrelvir [From Paxlovid] AdvReac Severe cardiac Verified 05/07/24 11:05 ritonavir [From Paxlovid] AdvReac Severe cardiac Verified 05/07/24 11:05 latex AdvReac Itching Verified 05/07/24 11:05 Review of Systems Review of Systems: All systems reviewed & are unremarkable except as noted in HPI and below Constitutional: Constitutional: Reports no additional constitutional complaints Eyes: Eyes: Reports no additional eye complaints ENT: Reports system reviewed and no additional complaints, except as documented Cardiovascular: Cardiovascular: Reports no additional cardiovascular complaints, Denies chest pain and Denies dyspnea Respiratory: Respiratory: Reports no additional respiratory complaints, Denies chest congestion, Denies cough and Denies dyspnea Gastrointestinal: Gastrointestinal: Reports no additional gastrointestinal complaints, Denies abdominal pain, Denies nausea and Denies vomiting Genitourinary: Genitourinary: Reports as per HPI Musculoskeletal: Musculoskeletal: Reports no additional musculoskeletal complaints Integumentary/Breasts: Skin/Breast: Reports system reviewed and no additional complaints, except as docu Neurologic: Reports system reviewed and no additional complaints, except as documented Psychiatric: Psychiatric: Reports no additional psychiatric complaints Allergic/Immunologic: Allergic/Immunologic: Reports no additional allergic/immunologic complaints PMFSH Past Medical History Medical History Acute gastritis Benign essential hypertension Bruxism Chest wall pain COVID Ear itching Endometriosis seen on candelaria/bso path 2023 Esophageal reflux Fibromyalgia Fungal otitis externa IBS (irritable bowel syndrome) Nasal congestion Otalgia of both ears Otitis externa of left ear Otitis externa of right ear Otorrhea, left ear Otorrhea, left ear Panic disorder without agoraphobia Prediabetes 3.9.22 hgba1c 5.9 PVC (premature ventricular contraction) Surgical History Surgical History H/O dilation and curettage H/O wisdom tooth extraction H/O: section History of placement of ear tubes Hx of cholecystectomy S/P CANDELARIA-BSO 3.27.24 Family History Family History Other Cerebrovascular accident Diabetes mellitus Family history of malignant neoplasm Hypertension Social History Social History Smoking packs per
[2024-05-07 11:15] VITALS: BP 133/78; PULSE 88; RESP 16; TEMP 36.9; O2SAT 99
[2024-05-07 11:51] LABS: EDUAAPPEAR Clear; EDUABILI Negative; EDUABLOOD Trace; EDUACOLOR1 Yellow; EDUAGLUCOSE Negative; EDUAKETONE Negative; EDUALEUKO 1+; EDUANITRATE Positive; EDUAPROTEIN Negative; EDUAUROBILI 0.2
== END 2024-05-07 11:30 | disposition home or self-care (01) ==
PROVIDERS: Emergency Provider Nurse Practitioner; PCP Family Medicine
DX: N39.0 Urinary tract infection, site not specified (principal); B37.31 Acute candidiasis of vulva and vagina; T14.8XXA Other injury of unspecified body region, initial encounter; X58.XXXA Exposure to other specified factors, initial encounter; I10 Essential (primary) hypertension; N80.9 Endometriosis, unspecified; M79.7 Fibromyalgia; R73.03 Prediabetes; Z86.16 Personal history of COVID-19; Z87.891 Personal history of nicotine dependence
CPT/HCPCS: 81003; 87070; 87075; 87077; 87086; 87088; 87147; 87186; 87205; 99213; G0463

== ENCOUNTER 2024-05-08 16:15 | Emergency (ER) | payer OTHER, SELFPAY ==
[2024-05-08 16:26] VITALS: BP 160/108; PULSE 115; RESP 20; TEMP 36.4; O2SAT 97
[2024-05-08 20:27] LABS: Basophils Absolute Auto 0.1 K/mm3 (0.0-0.1); Basophils Percent Auto 0.9 % (0.2-1.2); Eosinophils Absolute Auto 0.4 K/mm3 (0-0.3); Eosinophils Percent Auto 4.7 % (0-4.4); Hematocrit 41.2 % (37.0-47.0); Hemoglobin 14.1 g/dL (12.0-15.0); Immature Granulocyte Absolute 0.03 K/mm3 (0.00-0.031); Immature Granulocyte Percent A 0.3 % (0-0.5); Lymphocytes Absolute Auto 2.28 K/mm3 (0.9-3.2); Lymphocytes Percent Auto 25.3 % (18.3-44.2); Mean Corpuscular HGB Conc 34.2 g/dl (32-36); Mean Corpuscular Hemoglobin 27.2 pg (26-34); Mean Corpuscular Volume 79.4 fl (80-100); Mean Platelet Volume 10.4 fl (7.4-10.4); Monocytes Absolute Auto 0.7 K/mm3 (0.1-0.6); Monocytes Percent Auto 7.8 % (2.6-8.5); Neutrophils Absolute Auto 5.5 K/mm3 (1.3-6.7); Platelet Count Result 311 k/mm3 (150-375); Red Blood Count 5.19 M/mm3 (4.2-5.4); Red Cell Distribution Width 15.3 % (11.5-14.5)
[2024-05-08 20:34] LABS: Anion Gap 14 mmol/L (4-12); Blood Urea Nitrogen 12 mg/dL (7-17); Calcium 9.2 mg/dL (8.4-10.2); Carbon Dioxide 24 mmol/L (22-30); Chloride 97 mmol/L (98-107); Estimated CRCL calculation 104 ml/min; Estimated Glomerular Filt Rate > 60; Glucose 97 mg/dL (65-110); Potassium 3.6 mmol/L (3.4-5.0); Sodium 135 mmol/L (137-145)
[2024-05-08 21:02] LABS: Influenza A QL RT-PCR Negative (Negative); Influenza B QL RT-PCR Negative (Negative); RSV RNA, RT-PCR Negative (Negative); SARS-CoV-2 RNA PCR Negative (Negative)
[2024-05-08] MEDS: cefTRIAXone 2 GM/NS 100 ML 2 GM/100 ML BAG IVPB (21:25)
[2024-05-08 21:26] LABS: Erythrocyte Sedimentation Rate 16 mm/hr (0-20)
[2024-05-08 21:27] VITALS: BP 140/93; PULSE 99; RESP 18; O2SAT 97
[2024-05-08 22:05] VITALS: BP 113/75; PULSE 97; RESP 12; O2SAT 97
[2024-05-08] MEDS: LACTATED RINGERS 1,000 ML 999 ML IV CONT (22:05)
--- NOTE | 2024-05-08 23:30 | ED.SKABFB ---
HPI - Skin/Abscess/Foreign Bdy General Chief complaint: Skin/Abscess/Foreign Body Stated complaint: rash Time Seen by Provider: 05/08/24 19:43 History of Present Illness HPI narrative: Patient presenting here with new skin rash after starting Bactrim yesterday for a urinary tract infection. She is feeling generalized malaise and a slight sore throat. Related Data Home Medications Medication Instructions Recorded Confirmed lisinopril 10 mg tablet 10 mg PO DAILY 10/11/22 05/07/24 multivitamin 1 tablet PO DAILY 12/22/23 05/07/24 buspirone 15 mg tablet 15 mg PO BID 12/30/23 05/07/24 mirtazapine 15 mg tablet 15 mg PO HS 12/30/23 05/07/24 cyclobenzaprine 10 mg tablet 10 mg PO DAILY 03/11/24 05/07/24 omega-3 fatty acids 1,000 mg 1,000 mg PO DAILY 04/22/24 05/07/24 capsule Allergies Allergy/AdvReac Type Severity Reaction Status Date / Time amlodipine Allergy Unknown peripheral Verified 05/08/24 16:19 edema promethazine Allergy Unknown Skin Verified 05/08/24 16:19 Reaction nirmatrelvir [From Paxlovid] AdvReac Severe cardiac Verified 05/08/24 16:19 ritonavir [From Paxlovid] AdvReac Severe cardiac Verified 05/08/24 16:19 latex AdvReac Itching Verified 05/08/24 16:19 Review of Systems Review of Systems: All systems reviewed & are unremarkable except as noted in HPI and below PMFSH Past Medical History Medical History Acute gastritis Benign essential hypertension Bruxism Chest wall pain COVID Ear itching Endometriosis seen on candelaria/bso path 2023 Esophageal reflux Fibromyalgia Fungal otitis externa IBS (irritable bowel syndrome) Nasal congestion Otalgia of both ears Otitis externa of left ear Otitis externa of right ear Otorrhea, left ear Otorrhea, left ear Panic disorder without agoraphobia Prediabetes 3.9.22 hgba1c 5.9 PVC (premature ventricular contraction) Surgical History Surgical History H/O dilation and curettage H/O wisdom tooth extraction H/O: section History of placement of ear tubes Hx of cholecystectomy S/P CANDELARIA-BSO 3.27.24 Family History Family History Other Cerebrovascular accident Diabetes mellitus Family history of malignant neoplasm Hypertension Social History Social History Smoking packs per day: 1 Smoking cigarettes per day: 20.0 Years smoked: 5 Smoking pack-years: 5.00 Smoking status: Former smoker Alcohol intake: never Alcohol use details: occasionally Substance use: never Substance use type: does not use Other substance usage details: EDIBLES Do You Feel Safe in your Home?: Yes Lack of Transportation: No Lack of Food: Never True Current Housing: I Have Housing Concerned About Future Housing: No Difficulty Paying Gas/Electric Bills: No Difficulty Paying for Meds: No Currently Unemployed: No Education: Bachelor's Degree Difficulty w/ Childcare or Family Care: No Living arrangements: with family Spiritual care concerns: No Exam Narrative: EXAMINATION OF ORGAN SYSTEMS/BODY AREAS: Constitutional: Vital signs per nursing GENERAL:[No acute distress, non-toxic appearing.] HEAD: Normal with no signs of head trauma. EYES: EOMI, conjunctiva normal ENT: No oral lesions LUNGS: Nonlabored breathing. HEART: Slightly tachycardic ABD: [Soft], [nontender to palpation] EXT: Normal range of motion SKIN: See several erythematous lesions to upper chest and upper arms NEURO: [Alert and oriented x 3. No gross focal sensory or strength deficits.] PSYCH: Normal affect Course Vital Signs Vital signs: Vital Signs Temperature 97.5 F L 05/08/24 16:26 Pulse Rate 115 H 05/08/24 16:26 Respiratory Rate 20 05/08/24 16:26 Blood Pressure 160/108 H 05/08/24 16:26 Pulse Oximetry 97
== END 2024-05-09 00:02 | disposition home or self-care (01) ==
PROVIDERS: Emergency Provider Emergency Medicine; PCP Family Medicine
DX: L27.0 Generalized skin eruption due to drugs and medicaments taken internally (principal); T36.8X5A Adverse effect of other systemic antibiotics, initial encounter; Z20.822 Contact with and (suspected) exposure to COVID-19; N39.0 Urinary tract infection, site not specified; I10 Essential (primary) hypertension; K21.9 Gastro-esophageal reflux disease without esophagitis; K58.9 Irritable bowel syndrome, unspecified; M79.7 Fibromyalgia; R73.03 Prediabetes; Z86.16 Personal history of COVID-19; Z87.891 Personal history of nicotine dependence; Z90.49 Acquired absence of other specified parts of digestive tract; Z90.710 Acquired absence of both cervix and uterus; Z79.899 Other long term (current) drug therapy
CPT/HCPCS: 36415; 80048; 85025; 85652; 87637; 96365; 99284; J0696; J7120

== ENCOUNTER 2024-05-10 14:29 | Outpatient (CLI) | payer OTHER, SELFPAY ==
--- NOTE | ~2024-05-10 | MR_ITS ---
EXAMINATION: MR abdomen wo con, MR pelvis wo con DATE: 05/10/2024 15:57 INDICATION: Burning pain from the abdomen to both lower limbs TECHNIQUE: 1. Magnetic resonance imaging (MRI) of the abdomen was performed without intravenous contrast. Seque nces included coronal T2-weighted SS-FSE, coronal and axial FS 2D-FIESTA, axial STIR FSE, axial T2-we ighted SS-FSE, axial T2-weighted FS SS-FSE, axial diffusion-weighted SE, axial dual-echo T1-weighted FSPGR, and axial and coronal T1-weighted LAVA. 2. MRI of the pelvis is performed without intravenous contrast bolus. Sequences included coronal T2- weighted SS-FSE, coronal and axial FS 2D-FIESTA, axial STIR FSE, axial T2-weighted SS-FSE, axial diff usion-weighted SE, axial dual-echo T1-weighted FSPGR, and axial and coronal T1-weighted LAVA. COMPARISON: CT abdomen pelvis dated 01/10/2024 FINDINGS: Abdomen: Heart size is normal. No pericardial or pleural effusion. Diffuse hepatic steatosis. Cholecystectomy clips the gallbladder fossa. Spleen, pancreas, bilateral adrenal glands are normal. A few very small T2 hyperintense bilateral renal cysts the largest on the left measuring 5 mm. Bowels are unremarkable with a couple loops extending across a region of mild rectus diastases. Small fat-containing umbilic al hernia. No pathologically enlarged abdominal lymphadenopathy. Mild lumbar levocurvature with mild spondylosis. Pelvis: Normal appendix. Bladder is normal. The uterus is not identified and has likely been surgically resec lizette. The bilateral ovaries are not visualized and may also been resected. The previously seen loculat ed pelvic fluid collections have resolved. There is no free fluid in the abdomen or pelvis. No pathol ogically enlarged pelvic or inguinal lymphadenopathy. Bone marrow signal is normal throughout. IMPRESSION: 1. Status post cholecystectomy, hysterectomy and possible bilateral nephrectomy. No acute intra-abdom inal/pelvic process. Reviewed, dictated and finalized at location A. IMPRESSION: 1. Status post cholecystectomy, hysterectomy and possible bilateral nephrectomy . No acute intra-abdominal/pelvic process.
== END 2024-05-10 14:30 ==
LOC: GOSHIMG 14:29
PROVIDERS: PCP Family Medicine; Visit Provider Family Medicine
DX: M62.89 Other specified disorders of muscle (principal); R10.9 Unspecified abdominal pain; Z90.49 Acquired absence of other specified parts of digestive tract
CPT/HCPCS: 72195; 74181

== ENCOUNTER 2024-08-06 15:56 | Outpatient (NON) | payer OTHER, SELFPAY | END 2024-08-06 15:57 | disposition home or self-care (01) | LOC: ANHGOSHLAB 15:58 | PROVIDERS: PCP Family Medicine; Visit Provider Student in an Organized Health Care Education/Training Program | DX: R39.9 Unspecified symptoms and signs involving the genitourinary system (principal) | CPT/HCPCS: 87086 ==

== ENCOUNTER 2024-08-13 04:56 | Emergency (ER) | payer OTHER, SELFPAY ==
--- NOTE | ~2024-08-13 | CT_ITS ---
EXAMINATION: CT brain wo con DATE: 08/13/2024 08:27 INDICATION: Headache. TECHNIQUE: Computed tomography (CT) of the head was performed without intravenous contrast. The mA wa s adjusted according to patient size. Iterative reconstruction technique was employed. The dose-lengt h product was 873.97 mGy-cm. COMPARISON: Head CT 11/19/2021 FINDINGS: There is no intracranial hemorrhage, acute infarction, or abnormal intracranial mass lesion . The ventricles are normal in size. There are mucous retention cysts in the maxillary sinuses. The m astoid air cells are normal. The orbits are normal. IMPRESSION: 1. Normal brain. Reviewed, dictated and finalized at location A. AN IMPRESSION: 1. Normal brain.
--- NOTE | 2024-08-13 05:12 | ED_ITS ---
HPI - General Adult General Chief complaint: Headache <Nikita May MD - Last Filed: 08/13/24 05:18> Stated complaint: headache <Nikita May MD - Last Filed: 08/13/24 05:18> Time Seen by Provider: 08/13/24 05:07 <Nikita May MD - Last Filed: 08/13/24 05:18> History of Present Illness HPI narrative: patient 3-year-old female who presents emergency department chief complaint of headache. The patient reports that she woke up having a severe headache patient states it was like a bolt of lightning strike her head patient reports that she felt as though her eye was a little droopy afterwards the patient does report that she has history of migraines in the past the patient states that she still has a headache and has a uncomfortable feeling in the frontal portion of her head an in the occipital region of her head the gums down into her neck. Patient reported that she has no weakness in her arms or legs denies confusion denies problems talking <Nikita May MD - Last Filed: 08/13/24 05:18> Related Data Home medications: Home Medications Medication Instructions Recorded Confirmed lisinopril 10 mg tablet 10 mg PO DAILY 10/11/22 08/08/24 multivitamin 1 tablet PO DAILY 12/22/23 08/08/24 buspirone 15 mg tablet 15 mg PO BID 12/30/23 08/08/24 cyclobenzaprine 10 mg tablet 10 mg PO DAILY 03/11/24 08/08/24 omega-3 fatty acids 1,000 mg 1,000 mg PO DAILY 04/22/24 08/08/24 capsule hyoscyamine sulfate 0.125 mg 0.125 mg PO QID 06/14/24 08/08/24 tablet (Levsin) mirtazapine 30 mg tablet mg PO 06/14/24 08/08/24 <Nikita May MD - Last Filed: 08/13/24 05:18> Allergies/adverse reactions: Allergies Allergy/AdvReac Type Severity Reaction Status Date / Time sulfamethoxazole Allergy Severe Rash Verified 08/13/24 05:24 [From Bactrim] trimethoprim [From Bactrim] Allergy Severe Rash Verified 08/13/24 05:24 amlodipine Allergy Unknown peripheral Verified 08/13/24 05:24 edema promethazine Allergy Unknown Skin Verified 08/13/24 05:24 Reaction nirmatrelvir [From Paxlovid] AdvReac Severe cardiac Verified 08/13/24 05:24 ritonavir [From Paxlovid] AdvReac Severe cardiac Verified 08/13/24 05:24 latex AdvReac Itching Verified 08/13/24 05:24 neomycin, polymyxin and AdvReac Intermediate Other Uncoded 08/13/24 04:57 hydrocortisone otic drops <Nikita May MD - Last Filed: 08/13/24 05:18> Review of Systems Review of Systems: A 10 system review of systems was completed on the patient and is negative except for what is stated in the HPI. Nursing and ancillary documentation was reviewed. <Nikita May MD - Last Filed: 08/13/24 05:18> [facility] Past Medical History Medical History: Medical History Acute gastritis Benign essential hypertension Bruxism Chest wall pain COVID Ear itching Endometriosis seen on rachel/bso path 2023 Esophageal reflux Fibromyalgia Fungal otitis externa IBS (irritable bowel syndrome) Nasal congestion Otalgia of both ears Otitis externa of left ear Otitis externa of right ear Otorrhea, left ear Otorrhea, left ear Panic disorder without agoraphobia Prediabetes 3.9.22 [id number] 5.9 PVC (premature ventricular contraction) <Nikita May MD - Last Filed: 08/13/24 05:18> Surgical History Surgical History: Surgical History H/O dilation and curettage H/O wisdom tooth extraction H/O: section History of placement of ear tubes Hx of cholecystectomy S/P RACHEL-BSO 3.27.24 <Nikita May MD - Last Filed: 08/13/24 05:18> Family History Family History: Family History Other Cerebrovascular accident Diabetes mellitus Family history of malignant neoplasm Hypertension <Nikita May MD - Last Filed: 08/13/24 05:18> Social History Social History: Social History Smoking packs per day: 1 Smoking cigarettes per day: 20.0 Years smoked: 5 Smoking pack-years: 5.00 Smoking status: Former smoker Alcohol intake: never Alcohol use details: occasionally Substance use: never Substance use type: does not use Other substance usage details: EDIBLES Do You Feel Safe in your Home?: Yes Lack of Transportation: No Lack of Food: Never True Current Housing: I Have Housing Concerned About Future Housing: No Difficulty Paying Gas/Electric Bills: No Difficulty Paying for Meds: No Currently Unemployed: No Education: Bachelor's Degree Difficulty w/ Childcare or Family Care: No Living arrangements: with family Spiritual care concerns: No <Nikita May MD - Last Filed: 08/13/24 05:18> Exam Narrative: GENERAL: Well-appearing, well-nourished, and in no acute distress. HEAD: Normocephalic, atraumatic. EYES: PERRLA and EOMI. ENT: Nares clear, no rhinorrhea or epistaxis. Mucous membranes moist. NECK: Supple. CHEST: Clear to auscultation. No respiratory distress. HEART: Regular rate and rhythm. No murmur heard. Normal peripheral pulses. ABDOMEN: Soft, nontender, nondistended, normal active bowel sounds. EXTREMITIES: Normal range of motion. No edema. SKIN: Warm, dry, no rash. NEURO: No focal deficits. Alert and oriented x3. PSYCH: Normal mood and affect. <Nikita May MD - Last Filed: 08/13/24 05:18> Course Course Emergency Course: patient is having improvement headache with migraine cocktail. CT scan without acute bleed. Patient reports she has sumatriptan tramadol at home to treat her migraine that she has not yet taken yet. She feels comfortable discharge. Will provide a work note. <Juan Sosa MD - Last Filed: 08/13/24 09:17> Vital Signs Vital signs: Vital Signs Temperature 98.6 F 08/13/24 05:20 Pulse Rate 82 08/13/24 05:20 Respiratory Rate 16 08/13/24 05:20 Blood Pressure 143/110 H 08/13/24 05:20 Pulse Oximetry 98 08/13/24 05:20 Oxygen Delivery Room Air 08/13/24 05:20 Temperature 96.8 F L 08/13/24 07:25 Pulse Rate 85 08/13/24 07:25 Respiratory Rate 18 08/13/24 07:25 Blood Pressure 136/90 08/13/24 07:25 Pulse Oximetry 98 08/13/24 07:25 Oxygen Delivery Room Air 08/13/24 05:20 <Nikita May MD - Last Filed: 08/13/24 05:18> Vital Signs Temperature 98.6 F 08/13/24 05:20 Pulse Rate 82 08/13/24 05:20 Respiratory Rate 16 08/13/24 05:20 Blood Pressure 143/110 H 08/13/24 05:20 Pulse Oximetry 98 08/13/24 05:20 Oxygen Delivery Room Air 08/13/24 05:20 Temperature 96.8 F L 08/13/24 07:25 Pulse Rate 85 08/13/24 07:25 Respiratory Rate 18 08/13/24 07:25 Blood Pressure 136/90 08/13/24 07:25 Pulse Oximetry 98 08/13/24 07:25 Oxygen Delivery Room Air 08/13/24 05:20 <Juan Sosa MD - Last Filed: 08/13/24 09:17> Medical Decision Making MDM Narrative Medical decision making narrative: differential diagnosis includes migraine headache, subarachnoid hemorrhage, atypical migraine, headache CT head was obtained on the patient the patient was given a migraine cocktail <Nikita May MD - Last Filed: 08/13/24 05:18> Vital Signs Vital Signs: Vital Signs Temperature 98.6 F 08/13/24 05:20 Pulse Rate 82 08/13/24 05:20 Respiratory Rate 16 08/13/24 05:20 Blood Pressure 143/110 H 08/13/24 05:20 Pulse Oximetry 98 08/13/24 05:20 Oxygen Delivery Room Air 08/13/24 05:20 Temperature 96.8 F L 08/13/24 07:25 Pulse Rate 85 08/13/24 07:25 Respiratory Rate 18 08/13/24 07:25 Blood Pressure 136/90 08/13/24 07:25 Pulse Oximetry 98 08/13/24 07:25 Oxygen Delivery Room Air 08/13/24 05:20 <Nikita May MD - Last Filed: 08/13/24 05:18> Vital Signs Temperature 98.6 F 08/13/24 05:20 Pulse Rate 82 08/13/24 05:20 Respiratory Rate 16 08/13/24 05:20 Blood Pressure 143/110 H 08/13/24 05:20 Pulse Oximetry 98 08/13/24 05:20 Oxygen Delivery Room Air 08/13/24 05:20 Temperature 96.8 F L 08/13/24 07:25 Pulse Rate 85 08/13/24 07:25 Respiratory Rate 18 08/13/24 07:25 Blood Pressure 136/90 08/13/24 07:25 Pulse Oximetry 98 08/13/24 07:25 Oxygen Delivery Room Air 08/13/24 05:20 <Juan Sosa MD - Last Filed: 08/13/24 09:17> Lab Data Result diagrams: 08/13/24 05:42 08/13/24 05:42 <Nikita May MD - Last Filed: 08/13/24 05:18> Labs: Lab Results 08/13/24 08/13/24 Range/Units 05:42 06:07 WBC 8.6 (4.5-10.0) K/mm3 RBC 4.89 (4.2-5.4) M/mm3 Hgb 13.8 (12.0-15.0) g/dL Hct 40.7 (37.0-47.0) % MCV 83.2 (80-100) fl MCH 28.2 (26-34) pg MCHC 33.9 (32-36) g/dl RDW 13.3 (11.5-14.5) % Plt Count 270 (150-375) k/mm3 MPV 9.9 (7.4-10.4) fl Immature Gran % (Auto) 0.2 (0-0.5) % Neut % (Auto) 48.8 (45.5-73.1) % Lymph % (Auto) 39.6 (18.3-44.2) % [place] % (Auto) 7.3 (2.6-8.5) % Eos % (Auto) 2.9 (0-4.4) % Baso % (Auto) 1.2 (0.2-1.2) % Lymph # (Auto) 3.39 H (0.9-3.2) K/mm3 [place] # (Auto) 0.6 (0.1-0.6) K/mm3 Eos # (Auto) 0.3 (0-0.3) K/mm3 Baso # (Auto) 0.1 (0.0-0.1) K/mm3 Abs Immat Gran (auto) 0.02 (0.00-0.031) K/mm3 Absolute Neuts (auto) 4.2 (1.3-6.7) K/mm3 Absolute Nucleated RBC 0.000 (0.0-0.012) K/mm3 Nucleated RBC % 0.0 (0.0-0.2) % Sodium 136 L (137-145) mmol/L Potassium 3.7 (3.4-5.0) mmol/L Chloride 102 (98-107) mmol/L Carbon Dioxide 26 (22-30) mmol/L Anion Gap 8 (4-12) mmol/L BUN 10 (7-17) mg/dL Creatinine 0.70 (0.7-1.0) mg/dL Estim Creat Clear Calc 119 ml/min Estimated GFR > 60 (59 - ) Glucose 115 H (65-110) mg/dL Calcium 9.4 (8.4-10.2) mg/dL Total Bilirubin 0.9 (0.2-1.3) mg/dL AST 33 (14-36) U/L ALT 58 H (6-35) U/L Alkaline Phosphatase 50 (38-126) U/L Total Protein 7.0 (6.3-8.2) g/dL Albumin 4.2 (3.5-5.1) g/dL Urine Color Yellow (Yellow) Urine Appearance Clear (Clear) Urine pH 6.5 (5.0-9.0) Ur Specific [place] 1.005 (1.001-1.035) Urine Protein Negative (Negative) mg/dL Urine Glucose (UA) Negative (Negative) mg/dL Urine Ketones Negative (Negative) mg/dL Ur Blood (Man) Negative (Negative) Urine Nitrate Negative (Negative) Urine Bilirubin Negative (Negative) Urine Urobilinogen 0.2 (<2.0) mg/dL Leukocyte Esterase Rfl Trace H (Negative) DAVIDSON/UL Urine RBC 0-2 (0-2) /hpf Urine WBC 0-5 (0-3) /hpf Ur Squamous Epith Cells Few (Few) /hpf Urine Bacteria None seen /hpf Urine Casts 0-2 <Nikita May MD - Last Filed: 08/13/24 05:18> Lab Results 08/13/24 08/13/24 Range/Units 05:42 06:07 WBC 8.6 (4.5-10.0) K/mm3 RBC 4.89 (4.2-5.4) M/mm3 Hgb 13.8 (12.0-15.0) g/dL Hct 40.7 (37.0-47.0) % MCV 83.2 (80-100) fl MCH 28.2 (26-34) pg MCHC 33.9 (32-36) g/dl RDW 13.3 (11.5-14.5) % Plt Count 270 (150-375) k/mm3 MPV 9.9 (7.4-10.4) fl Immature Gran % (Auto) 0.2 (0-0.5) % Neut % (Auto) 48.8 (45.5-73.1) % Lymph % (Auto) 39.6 (18.3-44.2) % [place] % (Auto) 7.3 (2.6-8.5) % Eos % (Auto) 2.9 (0-4.4) % Baso % (Auto) 1.2 (0.2-1.2) % Lymph # (Auto) 3.39 H (0.9-3.2) K/mm3 [place] # (Auto) 0.6 (0.1-0.6) K/mm3 Eos # (Auto) 0.3 (0-0.3) K/mm3 Baso # (Auto) 0.1 (0.0-0.1) K/mm3 Abs Immat Gran (auto) 0.02 (0.00-0.031) K/mm3 Absolute Neuts (auto) 4.2 (1.3-6.7) K/mm3 Absolute Nucleated RBC 0.000 (0.0-0.012) K/mm3 Nucleated RBC % 0.0 (0.0-0.2) % Sodium 136 L (137-145) mmol/L Potassium 3.7 (3.4-5.0) mmol/L Chloride 102 (98-107) mmol/L Carbon Dioxide 26 (22-30) mmol/L Anion Gap 8 (4-12) mmol/L BUN 10 (7-17) mg/dL Creatinine 0.70 (0.7-1.0) mg/dL Estim Creat Clear Calc 119 ml/min Estimated GFR > 60 (59 - ) Glucose 115 H (65-110) mg/dL Calcium 9.4 (8.4-10.2) mg/dL Total Bilirubin 0.9 (0.2-1.3) mg/dL AST 33 (14-36) U/L ALT 58 H (6-35) U/L Alkaline Phosphatase 50 (38-126) U/L Total Protein 7.0 (6.3-8.2) g/dL Albumin 4.2 (3.5-5.1) g/dL Urine Color Yellow (Yellow) Urine Appearance Clear (Clear) Urine pH 6.5 (5.0-9.0) Ur Specific [place] 1.005 (1.001-1.035) Urine Protein Negative (Negative) mg/dL Urine Glucose (UA) Negative (Negative) mg/dL Urine Ketones Negative (Negative) mg/dL Ur Blood (Man) Negative (Negative) Urine Nitrate Negative (Negative) Urine Bilirubin Negative (Negative) Urine Urobilinogen 0.2 (<2.0) mg/dL Leukocyte Esterase Rfl Trace H (Negative) DAVIDSON/UL Urine RBC 0-2 (0-2) /hpf Urine WBC 0-5 (0-3) /hpf Ur Squamous Epith Cells Few (Few) /hpf Urine Bacteria None seen /hpf Urine Casts 0-2 <Juan Sosa MD - Last Filed: 08/13/24 09:17> Imaging Data Radiologist's impression: ITS Impressions Head CT 08/13/24 08:29 IMPRESSION: 1. Normal brain. <Juan Sosa MD - Last Filed: 08/13/24 09:17> Discharge Plan Discharge Clinical Impression: Migraine <Nikita May MD - Last Filed: 08/13/24 05:18> Patient Disposition: Home, Self-Care <Nikita May MD - Last Filed: 08/13/24 05:18> Condition: Stable <Nikita May MD - Last Filed: 08/13/24 05:18> Instructions: Migraine Headache (ED) <Nikita May MD - Last Filed: 08/13/24 05:18> Additional Instructions: Try to stay well hydrated at home. Please return to the emergency department if you develop worsening of your headache or a new headache which is severe, associated with vision changes, associated with neck stiffness or fever, or if it is different from any other headache that you have had before. Return to the emergency department if you develop numbness, weakness or tingling or problems with coordination, or if you develop severe nausea and vomiting and are unable to keep down fluids at home. <Nikita May MD - Last Filed: 08/13/24 05:18> Prescriptions: No Action lisinopril 10 mg tablet 10 mg PO DAILY Rx Instructions: HAS NOT BEEN TAKING PAST COUPLE WEEK BP LOW cyclobenzaprine 10 mg tablet 10 mg PO DAILY hyoscyamine sulfate [Levsin] 0.125 mg tablet 0.125 mg PO QID mirtazapine 30 mg tablet PO nitrofurantoin macrocrystal 100 mg capsule 100 mg PO Q12H Qty: 10 5RF Rx Instructions: must administer with a meal/food sucralfate [Carafate] 1 gram tablet 1 g PO TID PRN (Reason: acid reflux) Qty: 45 1RF pantoprazole 40 mg tablet,delayed release (DR/EC) 40 mg PO BID Qty: 180 1RF Nurtec ODT 75 mg tablet,disintegrating 75 mg PO ONCE PRN (Reason: migraine headache) Qty: 14 0RF Rx Instructions: as a single dose buspirone 15 mg tablet 15 mg PO BID Rx Instructions: orally;1.5 q a.m,2 po q p.m. ondansetron 4 mg tablet,disintegrating 4 mg PO Q8H PRN (Reason: nausea and vomiting) Qty: 10 0RF multivitamin Tablet 1 tablet PO DAILY clobetasol 0.05 % solution See Rx Instructions .ROUTE .COMPLEX Qty: 50 0RF Dose Instruction: APPLY TOPICALLY TO THE AFFECTED AREA DAILY Rx Instructions: APPLY TOPICALLY TO THE AFFECTED AREA DAILY metoprolol succinate 50 mg tablet extended release 24 hr 150 mg PO DAILY Qty: 90 5RF metformin 500 mg tablet extended release 24 hr 500 mg PO BID Qty: 180 1RF omega-3 fatty acids 1,000 mg capsule 1,000 mg PO DAILY gabapentin 300 mg capsule 300 mg PO TID Qty: 90 1RF triamterene-hydrochlorothiazid 37.5-25 mg tablet 1 tablet PO DAILY Qty: 90 0RF Savella 50 mg tablet See Rx Instructions .ROUTE .COMPLEX Qty: 60 3RF Dose Instruction: TAKE 1 TABLET BY MOUTH TWICE DAILY Rx Instructions: TAKE 1 TABLET BY MOUTH TWICE DAILY sumatriptan succinate 25 mg tablet See Rx Instructions PO .COMPLEX Qty: 14 0RF Rx Instructions: take 1 tab at onset of headache; if no relief may repeat 1 tab after at least 2 hrs; max = 4 tabs/24 hr PO <Nikita May MD - Last Filed: 08/13/24 05:18> Follow-up/Referrals: Deedee Long MD [Primary Care Provider] - 1 Week <Nikita May MD - Last Filed: 08/13/24 05:18> Stand Alone Forms: Work/School Release IP <Nikita May MD - Last Filed: 08/13/24 05:18>
[2024-08-13 05:20] VITALS: BP 143/110; PULSE 82; RESP 16; TEMP 37; O2SAT 98
[2024-08-13] MEDS: diphenhydrAMINE HCl INJ 50 MG/ML VIAL IV PUSH (05:30)
[2024-08-13] MEDS: KETOROLAC 15 MG/ML VIAL (*BKC) IV PUSH (05:30)
[2024-08-13] MEDS: SODIUM CHLORIDE 0.9% IV 1,000 ML 999 ML IV CONT (05:31)
[2024-08-13] MEDS: METOCLOPRAMIDE HCL INJ 10 MG/2 ML VIAL IV PUSH (05:31)
[2024-08-13] MEDS: MAGNESIUM SULF 1 GM/D5W 100 ML 1 GM/100 ML BAG IVPB (05:31)
[2024-08-13] MEDS: dexAMETHasone SOD PHOS INJ 10 MG/ML 1 ML VIAL IV PUSH (05:31)
[2024-08-13 05:52] LABS: Basophils Absolute Auto 0.1 K/mm3 (0.0-0.1); Basophils Percent Auto 1.2 % (0.2-1.2); Eosinophils Absolute Auto 0.3 K/mm3 (0-0.3); Eosinophils Percent Auto 2.9 % (0-4.4); Hematocrit 40.7 % (37.0-47.0); Hemoglobin 13.8 g/dL (12.0-15.0); Immature Granulocyte Absolute 0.02 K/mm3 (0.00-0.031); Immature Granulocyte Percent A 0.2 % (0-0.5); Lymphocytes Absolute Auto 3.39 K/mm3 (0.9-3.2); Lymphocytes Percent Auto 39.6 % (18.3-44.2); Mean Corpuscular HGB Conc 33.9 g/dl (32-36); Mean Corpuscular Hemoglobin 28.2 pg (26-34); Mean Corpuscular Volume 83.2 fl (80-100); Mean Platelet Volume 9.9 fl (7.4-10.4); Monocytes Absolute Auto 0.6 K/mm3 (0.1-0.6); Monocytes Percent Auto 7.3 % (2.6-8.5); Neutrophils Absolute Auto 4.2 K/mm3 (1.3-6.7); Neutrophils Percent Auto 48.8 % (45.5-73.1); Platelet Count Result 270 k/mm3 (150-375); Red Blood Count 4.89 M/mm3 (4.2-5.4); Red Cell Distribution Width 13.3 % (11.5-14.5); White Blood Count 8.6 K/mm3 (4.5-10.0)
[2024-08-13 06:03] LABS: Alanine Aminotransferase 58 U/L (6-35); Albumin Level 4.2 g/dL (3.5-5.1); Alkaline Phosphatase 50 U/L (38-126); Anion Gap 8 mmol/L (4-12); Aspartate Amino Transferase 33 U/L (14-36); Bilirubin,Total 0.9 mg/dL (0.2-1.3); Blood Urea Nitrogen 10 mg/dL (7-17); Calcium 9.4 mg/dL (8.4-10.2); Carbon Dioxide 26 mmol/L (22-30); Chloride 102 mmol/L (98-107); Estimated CRCL calculation 119 ml/min; Estimated Glomerular Filt Rate > 60; Glucose 115 mg/dL (65-110); Potassium 3.7 mmol/L (3.4-5.0); Sodium 136 mmol/L (137-145)
[2024-08-13 06:22] LABS: Add Urine Microscopic? YES; Appearance Urine Clear (Clear); Bacteria Urine None Seen /hpf; Bilirubin Urine Negative (Negative); Blood Urine Negative (Negative); Color Urine Yellow (Yellow); Glucose Urine UA Negative (Negative); Ketones Urine Negative (Negative); Leukocyte Esterase Ur Trace LEU/UL (Negative); Nitrate Urine Negative (Negative); Non Pathogenic Casts 0-2; Protein Urine Negative (Negative); RBC Urine 0-2 /hpf (0-2); Specific Grav Ur 1.005 (1.001-1.035); Squamous Epithelial Cell Urine Few /hpf (Few); Urobilinogen Urine 0.2 mg/dL (<2.0); WBC Urine 0-5 /hpf (0-3); pH Urine 6.5 (5.0-9.0)
[2024-08-13 07:25] VITALS: BP 136/90; PULSE 85; RESP 18; TEMP 36; O2SAT 98
[2024-08-13 09:25] VITALS: BP 149/90; PULSE 83; RESP 16; TEMP 36.6; O2SAT 99
== END 2024-08-13 09:37 | disposition home or self-care (01) ==
PROVIDERS: Emergency Provider Emergency Medicine; PCP Family Medicine
DX: G43.909 Migraine, unspecified, not intractable, without status migrainosus (principal); I10 Essential (primary) hypertension; M79.7 Fibromyalgia; K21.9 Gastro-esophageal reflux disease without esophagitis; K58.9 Irritable bowel syndrome, unspecified; R73.03 Prediabetes; Z86.16 Personal history of COVID-19; Z87.891 Personal history of nicotine dependence; Z90.710 Acquired absence of both cervix and uterus; Z90.722 Acquired absence of ovaries, bilateral; Z90.79 Acquired absence of other genital organ(s); Z90.49 Acquired absence of other specified parts of digestive tract; Z79.899 Other long term (current) drug therapy; Z79.84 Long term (current) use of oral hypoglycemic drugs
CPT/HCPCS: 36415; 70450; 80053; 81001; 85025; 96365; 96366; 96375; 99284; J1100; J1200; J1885; J2765; J3475; J7030

== ENCOUNTER 2024-09-06 14:59 | Emergency (ER) | payer OTHER, SELFPAY ==
--- NOTE | ~2024-09-06 | XR_ITS ---
XR chest 2V Ordering provider: Emily Viveros APRN History: 39 years Female with . cough . Comparison: None. FINDINGS: MEDIASTINUM: The cardiac silhouette is not enlarged. LUNGS: No effusions or pneumothorax. Focal Opacification is seen in the left lower lobe area is seen most likely in the lingula suggestive of atelectasis versus pneumonia. OTHER: No free air under the diaphragm. IMPRESSION: Lingular atelectasis versus pneumonia. Follow-up advised. Reviewed, dictated and finalized at location A. APPLICATION TESTER
[2024-09-06 15:08] VITALS: BP 127/79; PULSE 88; RESP 16; TEMP 36.8; O2SAT 98
--- NOTE | 2024-09-06 16:08 | ED.SOB ---
HPI - SOB/Dyspnea General Chief Complaint: Shortness of Breath/Dyspnea Stated Complaint: Chest Wall Pain/ SOB Time Seen by Provider: 09/06/24 16:12 Source: patient, RN notes reviewed and old records reviewed Mode of arrival: ambulatory Limitations: no limitations History of Present Illness HPI Narrative: Patient presents with complaints of 1 week of cough, body aches, chills and night sweats. She reports symptoms are worsening. She also has a headache. She has been taking Excedrin for this. She denies any injury or trauma. She does report that she feels as though she becomes short of breath with prolonged activity. She voices no other concerns or complaints today. She is not in any distress, including respiratory distress. Related Data Home Medications Medication Instructions Recorded Confirmed lisinopril 10 mg tablet 10 mg PO DAILY 10/11/22 09/06/24 multivitamin 1 tablet PO DAILY 12/22/23 09/06/24 buspirone 15 mg tablet 15 mg PO BID 12/30/23 09/06/24 cyclobenzaprine 10 mg tablet 10 mg PO DAILY 03/11/24 09/06/24 omega-3 fatty acids 1,000 mg 1,000 mg PO DAILY 04/22/24 09/06/24 capsule mirtazapine 30 mg tablet 30 mg PO DIRECTED 06/14/24 09/06/24 Allergies Allergy/AdvReac Type Severity Reaction Status Date / Time sulfamethoxazole Allergy Severe Rash Verified 08/13/24 05:24 [From Bactrim] trimethoprim [From Bactrim] Allergy Severe Rash Verified 08/13/24 05:24 amlodipine Allergy Unknown peripheral Verified 08/13/24 05:24 edema promethazine Allergy Unknown Skin Verified 08/13/24 05:24 Reaction nirmatrelvir [From Paxlovid] AdvReac Severe cardiac Verified 08/13/24 05:24 ritonavir [From Paxlovid] AdvReac Severe cardiac Verified 08/13/24 05:24 latex AdvReac Itching Verified 08/13/24 05:24 neomycin, polymyxin and AdvReac Intermediate Other Uncoded 08/13/24 04:57 hydrocortisone otic drops Review of Systems Review of Systems: All systems reviewed & are unremarkable except as noted in HPI and below Constitutional: Constitutional: Reports no additional constitutional complaints, Reports chills, Reports fever(s), Reports headache(s), Reports lethargy and Reports night sweats ENT: Reports system reviewed and no additional complaints, except as documented Cardiovascular: Cardiovascular: Reports no additional cardiovascular complaints Respiratory: Respiratory: Reports no additional respiratory complaints, Reports change in phlegm color, Reports chest congestion, Reports cough, Reports pain with cough and Reports dyspnea on exertion Gastrointestinal: Gastrointestinal: Reports no additional gastrointestinal complaints Musculoskeletal: Musculoskeletal: Reports back pain PMFSH Past Medical History Medical History Acute gastritis Benign essential hypertension Bruxism Chest wall pain COVID Ear itching Endometriosis seen on rachel/bso path 2023 Esophageal reflux Fibromyalgia Fungal otitis externa IBS (irritable bowel syndrome) Nasal congestion Otalgia of both ears Otitis externa of left ear Otitis externa of right ear Otorrhea, left ear Otorrhea, left ear Panic disorder without agoraphobia Prediabetes 3.9.22 hgba1c 5.9 PVC (premature ventricular contraction) Surgical History Surgical History H/O dilation and curettage H/O wisdom tooth extraction H/O: section History of placement of ear tubes Hx of cholecystectomy S/P [facility] 3.27.24 Family History Family History Other Cerebrovascular accident Diabetes mellitus Family history of malignant neoplasm Hypertension Social History Social History Smoking packs per day: 1 Smoking cigarettes per day: 20.0 Years smoked: 5 Smoking pack-years: 5.00 Smoking status: Former smoker Alcohol intake: never Alcohol use details: occasionally Substance use: never Substance use type: does not use Other substance usage details: EDIBLES Do You Feel Safe in your Home?: Yes Lack of Transportation: No Lack of Food: Never True Current Housing: I Have Housing Concerned About Future Housing: No Difficulty Paying Gas/Electric Bills: No Difficulty Paying for Meds: No Currently Unemployed: No Education: Bachelor's Degree Difficulty w/ Childcare or Family Care: No Living arrangements: with family Spiritual care concerns: No Comments At the time of my signature, I reviewed and agree with the nursing past medical, surgical, social, and family history. There is no relevant family history pertinent to the patient complaint. Exam Const: General: cooperative, no acute distress, alert and awake Orientation/consciousness: oriented to person, oriented to place and oriented to time HENMT: Head: normal to inspection Ears: TM's normal bilaterally Mouth: Yes moist mucous membranes Resp: Effort & Inspection: normal respiratory effort and able to speak in complete sentences Auscultation: clear to auscultation bilaterally, crackles on the left at the base, no rales, no rhonchi and no wheezes Cardio: Palpation: normal PMI Rate: regular rate Rhythm: regular rhythm Heart sounds: S1 normal heart sound present and S2 normal heart sound present Neuro: General: oriented to person, oriented to place and oriented to time Cranial nerves: Yes CN's II-XII intact bilaterally Psych: Appearance: grossly normal Thought process: Normal thought process present Insight: Good insight present (Psych) Judgement: Good judgement present (Psych) Course Course Level of Care: Express Care Visit Vital Signs Vital signs: Vital Signs Temperature 98.2 F 09/06/24 15:08 Pulse Rate 88 09/06/24 15:08 Respiratory Rate 16 09/06/24 15:08 Blood Pressure 127/79 09/06/24 15:08 Pulse Oximetry 98 09/06/24 15:08 Oxygen Delivery Room Air 09/06/24 15:08 Temperature 98.2 F 09/06/24 15:08 Pulse Rate 88 09/06/24 15:08 Respiratory Rate 16 09/06/24 15:08 Blood Pressure 127/79 09/06/24 15:08 Pulse Oximetry 98 09/06/24 15:08 Oxygen Delivery Room Air 09/06/24 15:08 Reviewed MDM - SOB/Dyspnea MDM Narrative Medical decision making narrative: History, exam, x-ray consistent with left lower lobe pneumonia. Patient nontoxic appearing. Stable for outpatient treatment. Discharge instructions reviewed with patient, as well as provided in writing per nursing staff. The instructions also include specific and strict return/GO TO THE ER as well as f/u information. All questions have been answered, and the patient deny any further questions with discharge and discharge plan. Some parts of this dictation were generated by voice recognition software and may contain typographical and/or grammatical inaccuracies. Differential Diagnosis Differential diagnosis: Likely acute exacerbation of chronic obstructive airways disease and community acquired pneumonia Medical Records Attestation: I reviewed the patient's medical records. Imaging Data Attestation: I personally reviewed and interpreted this imaging study as follows: My impression: LLL pna Radiologist's impression: [address] [place] [address] XRay Report Signed Patient: Araceli Cedeno : 1985 MR#: [id number] Age: 39 Acct:[id number] Loc: [facility] ADM Date: 09/06/24Attending Dr: Ordering Physician: Emily Viveros FNP Date of Service: 09/06/24 Procedure(s): XR chest 2V Accession Number(s): [id number] cc: Emily Viveros FNP; Deedee Long MD~ XR chest 2V Ordering provider: Emily Viveros APRN History: 39 years Female with . cough . Comparison: None. FINDINGS: MEDIASTINUM: The cardiac silhouette is not enlarged. LUNGS: No effusions or pneumothorax. Focal Opacification is seen in the left lower lobe area is seen most likely in the lingula suggestive of atelectasis versus pneumonia. OTHER: No free air under the diaphragm. IMPRESSION: Lingular atelectasis versus pneumonia. Follow-up advised. Reviewed, dictated and finalized at location A. [facility] PROJECT LEADER/TEAM LEAD Dictated By: Froy Melara MD 09/06/24 1634 Signed By: <Electronically signed by Froy Melara MD in [place]> Discharge Plan Discharge Clinical Impression: Pneumonia Qualifiers: Pneumonia type: due to unspecified organism Laterality: left Lung location: lower lobe of lung Qualified Code(s): J18.9 - Pneumonia, unspecified organism Patient Disposition: Home, Self-Care Condition: Stable Instructions: Antibiotic Form Additional Instructions: Take medication as prescribed. Follow with primary care provider. Emergency department for new or worse symptoms Patient Language: Vietnamese Prescriptions: New azithromycin 250 mg tablet See Rx Instructions .ROUTE .COMPLEX Qty: 6 0RF Rx Instructions: For 250 mg dose pack: take 500 mg today (day 1), then 250 mg for 4 days (days 2-5) prednisone 50 mg tablet 50 mg PO DAILY Qty: 5 0RF albuterol sulfate [Ventolin HFA] 90 mcg/actuation HFA aerosol inhaler 2 puff inhalation QID PRN (Reason: shortness of breath or wheezing) Qty: 8.5 0RF No Action lisinopril 10 mg tablet 10 mg PO DAILY Rx Instructions: HAS NOT BEEN TAKING PAST COUPLE WEEK BP LOW cyclobenzaprine 10 mg tablet 10 mg PO DAILY mirtazapine 30 mg tablet 30 mg PO DIRECTED sucralfate [Carafate] 1 gram tablet 1 g PO TID PRN (Reason: acid reflux) Qty: 45 1RF pantoprazole 40 mg tablet,delayed release (DR/EC) 40 mg PO BID Qty: 180 1RF Nurtec ODT 75 mg tablet,disintegrating 75 mg PO ONCE PRN (Reason: migraine headache) Qty: 14 0RF Rx Instructions: as a single dose buspirone 15 mg tablet 15 mg PO BID Rx Instructions: orally;1.5 q a.m,2 po q p.m. ondansetron 4 mg tablet,disintegrating 4 mg PO Q8H PRN (Reason: nausea and vomiting) Qty: 10 0RF multivitamin Tablet 1 tablet PO DAILY clobetasol 0.05 % solution See Rx Instructions .ROUTE .COMPLEX Qty: 50 0RF Dose Instruction: APPLY TOPICALLY TO THE AFFECTED AREA DAILY Rx Instructions: APPLY TOPICALLY TO THE AFFECTED AREA DAILY metoprolol succinate 50 mg tablet extended release 24 hr 150 mg PO DAILY Qty: 90 5RF metformin 500 mg tablet extended release 24 hr 500 mg PO BID Qty: 180 1RF omega-3 fatty acids 1,000 mg capsule 1,000 mg PO DAILY triamterene-hydrochlorothiazid 37.5-25 mg tablet 1 tablet PO DAILY Qty: 90 0RF Savella 50 mg tablet See Rx Instructions .ROUTE .COMPLEX Qty: 60 3RF Dose Instruction: TAKE 1 TABLET BY MOUTH TWICE DAILY Rx Instructions: TAKE 1 TABLET BY MOUTH TWICE DAILY sumatriptan succinate 25 mg tablet See Rx Instructions PO .COMPLEX Qty: 14 0RF Rx Instructions: take 1 tab at onset of headache; if no relief may repeat 1 tab after at least 2 hrs; max = 4 tabs/24 hr PO gabapentin 300 mg capsule 300 mg PO TID Qty: 90 1RF hyoscyamine sulfate 0.125 mg tablet See Rx Instructions .ROUTE .COMPLEX Qty: 30 5RF Dose Instruction: TAKE 1 TABLET BY MOUTH FOUR TIMES DAILY Rx Instructions: TAKE 1 TABLET BY MOUTH FOUR TIMES DAILY Follow-up/Referrals: Deedee Long MD [Primary Care Provider] -
== END 2024-09-06 17:05 | disposition home or self-care (01) ==
PROVIDERS: Emergency Provider Nurse Practitioner Family; PCP Family Medicine
DX: J18.9 Pneumonia, unspecified organism (principal); Z87.891 Personal history of nicotine dependence; I10 Essential (primary) hypertension; N80.9 Endometriosis, unspecified; M79.7 Fibromyalgia; R73.03 Prediabetes
CPT/HCPCS: 71046; 99213; G0463

== ENCOUNTER 2024-09-11 21:04 | Emergency (ER) | payer OTHER, SELFPAY ==
--- NOTE | ~2024-09-11 | XR_ITS ---
Clinical Indication: Pneumonia PA and lateral views of the chest: Comparison: 09/06/2024 Findings: The lungs are clear, without evidence of focal consolidation or pleural effusion. Cardiome diastinal silhouette is within normal limits. Bones and soft tissues are unremarkable. Impression: Normal chest. Reviewed, dictated and finalized at [facility]. 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
--- NOTE | 2024-09-11 21:08 | ECG_ITS ---
Test Date: 2024-09-11 21:11:45 Measurements Intervals [place] Rate: 83 P: 22 [place]: 152 QRS: -34 QRSD: 106 T: 31 QT: 386 QTc: 455 Interpretive Statements SINUS RHYTHM MARKED LEFT AXIS DEVIATION [QRS AXIS < -30] PATTERN CONSISTENT WITH PULMONARY DISEASE Poor R wave progression No previous ECG available for comparison Electronically Signed On 09-12-2024 08:51:03 RN CHILD by Dipesh Haro M.D.
[2024-09-11 21:11] VITALS: BP 156/98; PULSE 82; RESP 20; TEMP 36.6; O2SAT 97
[2024-09-11 22:50] VITALS: O2SAT 95
--- NOTE | 2024-09-11 23:37 | ED.ARRPALP ---
HPI - Arrhythmia/Palpitations General Chief Complaint: Arrhythmia/Palpitations Stated Complaint: pneumonia since Friday, Palpatations/anxeity Time Seen by Provider: 09/11/24 22:33 Source: patient Mode of arrival: ambulatory Limitations: no limitations History of Present Illness HPI narrative: Patient is a 39-year-old female, with pmh of fibromyalgia, who presents the ED with report of palpitations, chest pain. Patient reports she was diagnosed at an urgent care with pneumonia on Friday. She was prescribed azithromycin and a 5 day course of prednisone. She has completed these, but reports worsening shortness of breath, pleuritic pain, palpitations, anxiety over the last couple of days. Was referred to the ED by her primary care doctor. Has been taking Mucinex and Excedrin for her symptoms. Denies fevers, but does report chills and diaphoresis. Denies lower extremity pain or swelling. Related Data Home Medications ?Medication ?Instructions ?Recorded ?Confirmed ?Last Taken ?Type lisinopril 10 mg tablet 10 mg PO DAILY 10/11/22 09/06/24 12/23/23 History multivitamin 1 tablet PO DAILY 12/22/23 09/06/24 12/20/23 History buspirone 15 mg tablet 15 mg PO BID 12/30/23 09/06/24 Unknown History cyclobenzaprine 10 mg tablet 10 mg PO DAILY 03/11/24 09/06/24 Unknown History omega-3 fatty acids 1,000 mg 1,000 mg PO DAILY 04/22/24 09/06/24 Unknown History capsule mirtazapine 30 mg tablet 30 mg PO DIRECTED 06/14/24 09/06/24 Unknown History Allergies Allergy/AdvReac Type Severity Reaction Status Date / Time sulfamethoxazole (From Allergy Severe Rash Verified 09/11/24 21:14 Bactrim) trimethoprim (From Bactrim) Allergy Severe Rash Verified 09/11/24 21:14 amlodipine Allergy Unknown peripheral Verified 09/11/24 21:14 edema promethazine Allergy Unknown Skin Verified 09/11/24 21:14 Reaction nirmatrelvir (From Paxlovid) AdvReac Severe cardiac Verified 09/11/24 21:14 ritonavir (From Paxlovid) AdvReac Severe cardiac Verified 09/11/24 21:14 latex AdvReac Itching Verified 09/11/24 21:14 neomycin, polymyxin and AdvReac Intermediate Other Uncoded 08/13/24 04:57 hydrocortisone otic drops Review of Systems Review of Systems: All systems reviewed & are unremarkable except as noted in HPI. All systems reviewed & are unremarkable except as noted in HPI and below PMFSH Past Medical History Medical History Endometriosis seen on rachel/bso path 2023 Otitis externa of left ear Otorrhea, left ear Fungal otitis externa Chest wall pain Otorrhea, left ear Nasal congestion Prediabetes 3.9.22 hgba1c 5.9 COVID Bruxism Otalgia of both ears Ear itching IBS (irritable bowel syndrome) Otitis externa of right ear Esophageal reflux Benign essential hypertension Acute gastritis Fibromyalgia PVC (premature ventricular contraction) Panic disorder without agoraphobia Surgical History Surgical History S/P [facility] 3.27.24 History of placement of ear tubes H/O wisdom tooth extraction H/O dilation and curettage H/O: section Hx of cholecystectomy Family History Family History Other Cerebrovascular accident Diabetes mellitus Family history of malignant neoplasm Hypertension Social History Social History Smoking packs per day: 1 Smoking cigarettes per day: 20.0 Years smoked: 5 Smoking pack-years: 5.00 Smoking status: Former smoker Alcohol intake: never Alcohol use details: occasionally Substance use: never Substance use type: does not use Other substance usage details: EDIBLES Do You Feel Safe in your Home?: Yes Lack of Transportation: No Lack of Food: Never True Current Housing: I Have Housing Concerned About Future Housing: No Difficulty Paying Gas/Electric Bills: No Difficulty Paying for Meds: No Currently Unemployed: No Education: Bachelor's Degree Difficulty w/ Childcare or Family Care: No Living arrangements: with family Spiritual care concerns: No Exam Narrative: GENERAL: Well appearing, morbidly obese with BMI of 48.1, non-toxic, in no acute distress. HEAD: Normocephalic, atraumatic. RESPIRATORY: Airway patent, respirations nonlabored. Clear to auscultation bilaterally, no rales, rhonchi, wheezing. No focal lung sounds. Frequent coughing on exam. CARDIOVASCULAR: Regular rate and rhythm without murmurs, rubs, or gallops. MUSCULOSKELETAL: Moves all extremities. No gross deformities. No calf tenderness. No peripheral edema. SKIN: Warm, dry, normal color. NEURO: A&O X3. Speech clear. Cranial nerves II-XII grossly intact. Steady gait. No ataxic movements. PSYCHIATRIC: Mildly anxious. Normal interaction. Course Vital Signs Vital signs: Vital Signs Temperature 97.8 F 09/11/24 21:11 Pulse Rate 82 09/11/24 21:11 Respiratory Rate 20 09/11/24 21:11 Blood Pressure 156/98 H 09/11/24 21:11 Pulse Oximetry 97 09/11/24 21:11 Oxygen Delivery Room Air 09/11/24 21:11 Temperature 97.8 F 09/11/24 21:11 Pulse Rate 78 09/12/24 00:00 Respiratory Rate 16 09/12/24 00:00 Blood Pressure 156/98 H 09/11/24 21:11 Pulse Oximetry 97 09/12/24 00:00 Oxygen Delivery Room Air 09/11/24 22:50 MDM - Arrhythmia/Palpitations MDM Narrative Medical decision making narrative: Patient presented to ED with persistent shortness breath, pleuritic pain, palpitations. Recent diagnosis of pneumonia. Records reviewed. Vital signs are stable upon arrival. Patient is afebrile here. In no acute distress. Does have frequent coughing on exam. CBC is with white blood cell count of 12.6. Patient has been on steroids recently. CMP with potassium of 3.3, replaced orally. Otherwise stable electrolytes. Normal magnesium. Stable kidney function. EKG without concerning ischemic changes. Baseline troponin undetectable. D-dimer WNL. Chest x-ray interpreted by myself with prominence of son lower lobes, slightly increased from recent imaging. Given ongoing leukocytosis with persistent symptoms, will treat for persistent pneumonia. Will treat with augmentin and doxycycline. Patient is in agreement with plan for abx treatment and discharge home. She has a f/u appointment with her PCP next week. Discussed strict return precautions. Patient voiced understanding. D/C in stable condition. Medical Records Attestation: I reviewed the patient's medical records. Lab Data Attestation: I reviewed the patient's lab results. 09/11/24 23:00 09/11/24 23:00 Labs: Lab Results 09/11/24 Range/Units 23:00 WBC 12.6 H (4.5-10.0) K/mm3 RBC 4.96 (4.2-5.4) M/mm3 Hgb 13.9 (12.0-15.0) g/dL Hct 40.4 (37.0-47.0) % MCV 81.5 (80-100) fl MCH 28.0 (26-34) pg MCHC 34.4 (32-36) g/dl RDW 13.2 (11.5-14.5) % Plt Count 353 (150-375) k/mm3 MPV 9.8 (7.4-10.4) fl Immature Gran % (Auto) Not Reportable Neut % (Auto) Not Reportable Lymph % (Auto) Not Reportable [place] % (Auto) Not Reportable Eos % (Auto) Not Reportable Baso % (Auto) Not Reportable Lymph # (Auto) Not Reportable [place] # (Auto) Not Reportable Eos # (Auto) Not Reportable Baso # (Auto) Not Reportable Abs Immat Gran (auto) Not Reportable Absolute Neuts (auto) Not Reportable Absolute Nucleated RBC Not Reportable Total Counted 100 Neutrophils % (Manual) 51 (46-73) % Lymphocytes % (Manual) 37.0 (18-44) % Monocytes % (Manual) 4 (3-9) % Eosinophils % (Manual) 8 H (0-4) % Nucleated RBC % Not Reportable Abs Lymphs (Manual) 4.66 H (1.1-4.5) K/mm3 Abs Monocytes (Manual) 0.50 (0.1-0.90) K/mm3 Absolute Eos (Manual) 1.00 H (0.02-0.50) K/mm3 Smudge Cells Many Platelet Estimate Increased (Adequate) Hypochromasia 1+ Anisocytosis 1+ Schistocytes None seen PT 12.6 (11.1-14.7) Seconds INR 0.9 APTT 29.5 (22.3-36.8) Seconds D-Dimer < 0.27 (<0.48) ug/mL Sodium 136 L (137-145) mmol/L Potassium 3.3 L (3.4-5.0) mmol/L Chloride 103 (98-107) mmol/L Carbon Dioxide 27 (22-30) mmol/L Anion Gap 6 (4-12) mmol/L BUN 16 (7-17) mg/dL Creatinine 0.90 (0.7-1.0) mg/dL Estim Creat Clear Calc 96 ml/min Estimated GFR > 60 (59 - ) Glucose 96 (65-110) mg/dL Calcium 9.2 (8.4-10.2) mg/dL Magnesium 2.1 (1.6-2.3) mg/dL Total Bilirubin 0.9 (0.2-1.3) mg/dL AST 27 (14-36) U/L ALT 47 H (6-35) U/L Alkaline Phosphatase 53 (38-126) U/L Troponin I < 0.012 (0.000-0.034) ng/mL Total Protein 7.0 (6.3-8.2) g/dL Albumin 4.0 (3.5-5.1) g/dL Imaging Data Attestation: I personally reviewed and interpreted this imaging study as follows: My impression: CXR: Slight prominence/haziness in bilateral lower lobes. ECG Data EKG #1: Attestation: I personally reviewed and interpreted this ECG as follows: ECG completion date: 09/11/24 ECG completion time: 21:11 EKG Interpretation: normal rate (83), sinus rhythm and no ST changes Discharge Plan Discharge Clinical Impression: Pneumonia Qualifiers: Pneumonia type: due to unspecified organism Laterality: bilateral Lung location: lower lobe of lung Qualified Code(s): J18.9 - Pneumonia, unspecified organism Patient Disposition: Home, Self-Care Condition: Stable Instructions: Antibiotic Form, Upper Respiratory Infection (ED), Community Acquired Pneumonia (ED), Pneumonia (ED) Additional Instructions: Take both antibiotics as prescribed. Finish both courses. Utilize Tessalon Perles as needed for cough. Recommend Tylenol and Ibuprofen for discomfort and/or fevers. Recommend [id number] cough and cold medicines for symptom relief, Delsym, Mucinex, DayQuil, NyQuil, Sudafed, Robitussin, TheraFlu. Follow with primary care doctor for further evaluation. Return to the ED if you experience worsening or severe chest pain/difficulty breathing, unable to keep down food or drink, severe pain, or any other symptoms of concern. Patient Language: Cuban Prescriptions: New benzonatate 200 mg capsule 200 mg PO TID PRN (Reason: cough) Qty: 20 0RF doxycycline monohydrate 100 mg tablet 100 mg PO BID 7 Days Qty: 14 0RF amoxicillin-pot clavulanate 875-125 mg tablet 1 tablet PO Q12H 7 Days Qty: 14 0RF No Action lisinopril 10 mg tablet 10 mg PO DAILY Rx Instructions: HAS NOT BEEN TAKING PAST COUPLE WEEK BP LOW azithromycin 250 mg tablet See Rx Instructions .ROUTE .COMPLEX Qty: 6 0RF Rx Instructions: For 250 mg dose pack: take 500 mg today (day 1), then 250 mg for 4 days (days 2-5) prednisone 50 mg tablet 50 mg PO DAILY Qty: 5 0RF albuterol sulfate [Ventolin HFA] 90 mcg/actuation HFA aerosol inhaler 2 puff inhalation QID PRN (Reason: shortness of breath or wheezing) Qty: 8.5 0RF cyclobenzaprine 10 mg tablet 10 mg PO DAILY mirtazapine 30 mg tablet 30 mg PO DIRECTED sucralfate [Carafate] 1 gram tablet 1 g PO TID PRN (Reason: acid reflux) Qty: 45 1RF pantoprazole 40 mg tablet,delayed release (DR/EC) 40 mg PO BID Qty: 180 1RF Nurtec ODT 75 mg tablet,disintegrating 75 mg PO ONCE PRN (Reason: migraine headache) Qty: 14 0RF Rx Instructions: as a single dose buspirone 15 mg tablet 15 mg PO BID Rx Instructions: orally;1.5 q a.m,2 po q p.m. ondansetron 4 mg tablet,disintegrating 4 mg PO Q8H PRN (Reason: nausea and vomiting) Qty: 10 0RF multivitamin Tablet 1 tablet PO DAILY clobetasol 0.05 % solution See Rx Instructions .ROUTE .COMPLEX Qty: 50 0RF Dose Instruction: APPLY TOPICALLY TO THE AFFECTED AREA DAILY Rx Instructions: APPLY TOPICALLY TO THE AFFECTED AREA DAILY metoprolol succinate 50 mg tablet extended release 24 hr 150 mg PO DAILY Qty: 90 5RF metformin 500 mg tablet extended release 24 hr 500 mg PO BID Qty: 180 1RF omega-3 fatty acids 1,000 mg capsule 1,000 mg PO DAILY triamterene-hydrochlorothiazid 37.5-25 mg tablet 1 tablet PO DAILY Qty: 90 0RF Savella 50 mg tablet See Rx Instructions .ROUTE .COMPLEX Qty: 60 3RF Dose Instruction: TAKE 1 TABLET BY MOUTH TWICE DAILY Rx Instructions: TAKE 1 TABLET BY MOUTH TWICE DAILY sumatriptan succinate 25 mg tablet See Rx Instructions PO .COMPLEX Qty: 14 0RF Rx Instructions: take 1 tab at onset of headache; if no relief may repeat 1 tab after at least 2 hrs; max = 4 tabs/24 hr PO gabapentin 300 mg capsule 300 mg PO TID Qty: 90 1RF hyoscyamine sulfate 0.125 mg tablet See Rx Instructions .ROUTE .COMPLEX Qty: 30 5RF Dose Instruction: TAKE 1 TABLET BY MOUTH FOUR TIMES DAILY Rx Instructions: TAKE 1 TABLET BY MOUTH FOUR TIMES DAILY Follow-up/Referrals: Deedee Long MD [Primary Care Provider] - Time of Disposition: 01:24
[2024-09-11 23:55] LABS: Hematocrit 40.4 % (37.0-47.0); Hemoglobin 13.9 g/dL (12.0-15.0); Mean Corpuscular HGB Conc 34.4 g/dl (32-36); Mean Corpuscular Volume 81.5 fl (80-100); Mean Platelet Volume 9.8 fl (7.4-10.4); Platelet Count Result 353 k/mm3 (150-375); Red Blood Count 4.96 M/mm3 (4.2-5.4); Red Cell Distribution Width 13.2 % (11.5-14.5); White Blood Count 12.6 K/mm3 (4.5-10.0)
[2024-09-12] VITALS: PULSE 78; RESP 16; O2SAT 97
[2024-09-12 00:05] LABS: Alanine Aminotransferase 47 U/L (6-35); Alkaline Phosphatase 53 U/L (38-126); Anion Gap 6 mmol/L (4-12); Aspartate Amino Transferase 27 U/L (14-36); Bilirubin,Total 0.9 mg/dL (0.2-1.3); Blood Urea Nitrogen 16 mg/dL (7-17); Calcium 9.2 mg/dL (8.4-10.2); Carbon Dioxide 27 mmol/L (22-30); Chloride 103 mmol/L (98-107); Estimated CRCL calculation 96 ml/min; Estimated Glomerular Filt Rate > 60; Glucose 96 mg/dL (65-110); Magnesium 2.1 mg/dL (1.6-2.3); Potassium 3.3 mmol/L (3.4-5.0); Sodium 136 mmol/L (137-145)
[2024-09-12 00:06] LABS: INR 0.9; Prothrombin Time 12.6 Seconds (11.1-14.7)
[2024-09-12 00:07] LABS: Partial Thromboplastin Time 29.5 Seconds (22.3-36.8)
[2024-09-12 00:20] LABS: D Dimer < 0.27 ug/mL (<0.48)
[2024-09-12] MEDS: POTASSIUM CHLORIDE 20 MEQ ER TABLET PO (00:20)
[2024-09-12 00:21] LABS: Troponin I < 0.012 ng/mL (0.000-0.034)
[2024-09-12 00:26] LABS: Anisocytosis 1+; Eosinophils Percent Manual 8 % (0-4); Lymphocytes Absolute Manual 4.66 K/mm3 (1.1-4.5); Monocytes Percent Manual 4 % (3-9); Neutrophils Percent Manual 51 % (46-73); Platelet Estimate Increased (Adequate); Total Cells Counted 100
[2024-09-12 00:27] LABS: Hypochromasia 1+; Schistocytes None Seen; Smudge Cells MANY
[2024-09-12] MEDS: DOXYCYCLINE HYCLATE 100 MG TABLET PO (01:24)
[2024-09-12] MEDS: AMOXICILLIN/CLAVULANATE K 875-125 MG TAB 1 TABLET PO (01:24)
[2024-09-12 01:41] VITALS: BP 136/76; PULSE 84; RESP 16; O2SAT 97
--- OUTSIDE RECORDS SUMMARY | 2024-09-16 07:04 | XMS_ITS | Referral Summary ---
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 Office Visit [facility] Cardiology at [address] [place] [address] Amol Martinez MD Palpitations (Primary Dx); Frequent PVCs from Last 3 Months Allergies Active Allergy Reactions Criticality Noted Date Comments Fluconazole Anxiety Low 01/16/2021 Latex Itching Low 12/24/2023 Nirmatrelvir-Ritonavir Chest tightness,Dizziness,He adache Medium 05/20/2022 Promethazine Other (See comments),Anxiety Low 05/25/2010 Panic attack Sulfamethoxazole-Trimetho prim Hives,Itching Medium 08/17/2024 Medications SAVELLA 50 mg tablet Take 1 tablet (50 mg total) by mouth 2 (two) times a day 0 8 Active cholecalciferol (VITAMIN D-3) 2,000 unit capsule Take 1 capsule (2,000 Units total) by mouth daily Active calcium citrate-vitamin D3 500 mg calcium -400 unit tablet,chewable Take by mouth daily. Active pyridoxine, vitamin B6, 200 mg tablet extended release Take 300 mg by mouth Take 1 tab po in the morning and 0.5 tab po in the evening Active magnesium oxide 500 mg capsule Take by mouth daily. Active multivitamin tablet,chewable Take by mouth Active cetirizine (ZyrTEC) 10 mg tablet Take 1 tablet (10 mg total) by mouth daily Active triamterene-hydroC HLOROthiazide 37.5-25 mg per tablet Take 1 tablet/capsule by mouth every morning [address] (PROTONIX) 40 mg EC tablet 1 Active busPIRone (BUSPAR) 15 mg tablet TAKE 1 AND 1/2 TABLETS BY MOUTH EVERY MORNING AND 2 TABLETS BY MOUTH EVERY EVENING 4 Active clobetasoL (TEMOVATE) 0.05 % external solution APPLY TOPICALLY TO THE AFFECTED AREA DAILY 4 Active estradioL (ESTRACE) 1 mg tablet 4 Active metFORMIN XR (GLUCOPHAGE XR) 500 mg 24 hr tablet Take 2 tablets (1,000 mg total) by mouth 2 (two) times a day 4 Active methocarbamoL (ROBAXIN) 750 mg tablet TAKE 1 TABLET BY MOUTH THREE TIMES DAILY NEEDED FOR MUSCLE PAIN 4 Active mirtazapine (REMERON) 15 mg tablet Take 1 tablet (15 mg total) by mouth nightly at bedtime 4 Active ondansetron ODT (ZOFRAN-ODT) 4 mg disintegrating tablet DISSOLVE 1 TABLET ON THE TONGUE EVERY 8 HOURS 4 Active oxyCODONE-acetamin ophen (PERCOCET) 5-325 mg per tablet TAKE ONE TABLET BY MOUTH EVERY 8 TO 12 HOURS NEEDED FOR PAIN 4 Active traMADoL (ULTRAM) 50 mg tablet Take 1 tablet (50 mg total) by mouth every 6 (six) hours 4 Active metoprolol XL (TOPROL-XL) 100 mg 24 hr tabletIndications: Palpitations Take 1 tablet (100 mg total) by mouth daily Take with the 50 mg tablet 90 tablet 3 4 Active metoprolol XL (TOPROL-XL) 50 mg extended release tabletIndications: Palpitations Take 1 tablet (50 mg total) by mouth daily Take with the 100 mg tablet 90 tablet 3 4 Active lisinopriL (PRINIVIL,ZESTRIL) 10 mg tablet TAKE 1 TABLET(10 MG) BY MOUTH DAILY 90 tablet 1 4 Active gabapentin (NEURONTIN) 300 mg capsule Take 100 mg by mouth 3 (three) times a day 4 Active fluticasone propionate (Flonase Allergy Relief) 50 mcg/actuation nasal spray Administer 1 spray into each nostril daily 0 Active Active Problems Problem Noted Date Diagnosed Date Chronic fatigue 10/07/2022 Neck pain on left side 09/24/2021 Other chest pain 07/23/2019 KENZIE on CPAP 03/04/2019 Pulmonary HTN 02/09/2018 Sinus tachycardia 12/30/2017 Palpitations 12/30/2017 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 HTN (hypertension), benign 12/30/2017 Morbid obesity with BMI of 45.0-49.9, adult ([facility]) 12/30/2017 Lipid screening 12/30/2017 QT prolongation 12/30/2017 Hypertension 2015 Social History Tobacco Use Types Packs/Day Years Used Date Smoking Tobacco: Former Cigarettes 0.5 5 0 09/29/2000 - 09/29/2005 Smokeless Tobacco: Never Alcohol Use Standard Drinks/Week Comments No 0 (1 standard drink = 0.6 oz pur e alcohol) Comments Unknown Sex and Gender Information Value Date Recorded Sex Assigned at Not on file 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:55 AM 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 Gender Identity Not on file Sexual Orientation Not on file Last Filed Vital Signs Vital Sign Reading Time Taken Comments Blood Pressure 134/90 08/17/2024 2:34 PM 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 Pulse 103 08/17/2024 2:34 PM 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 Temperature - - Respiratory Rate - - Oxygen Saturation 97% 08/17/2024 2:34 PM 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 Inhaled Oxygen Concentration - - Weight 124.3 kg (274 lb) 08/17/2024 2:34 PM 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 Height 162.6 cm (5' 4 ) 08/17/2024 2:34 PM 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 Body Mass Index 47.03 08/17/2024 2:34 PM 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 Plan of Treatment Not on file Insurance [facility] [employer] [employer] Address: [address] [place] [address] [facility] [employer] [facility] [employer] Address: [address] [address] [place] [address] Care Teams [facility] Hospitalist Relationship Specialty Start Date End Date Deedee Long MD PCP - General Family Medicine 10/07/22
--- OUTSIDE RECORDS SUMMARY | 2024-09-16 07:04 | XMS_ITS | Data Portability ---
Author Organization [facility] [place] Address [address] [place] [address] [place] [address] Care Team Providers Care Crating And Moving Estimator Name Role Phone JIHAN SANTANA Primary Care Provider Assessment Encounter Date Assessment Date Assessment LastModified by Organization Details LastModified Time 12/04/2023 12/04/[place] [address] [email or web address] Not availabl e 12/11/2023 12:23:58 Plan of Treatment Reminders Order Date Submit Date Provider Last Modified By Organization Details Last Modified Time Details Appointments None recorded. Lab urinalysis, dipstick 2023 024 [email or web address] 1 [place], [address], [place], [address], 17:32:30 test, urine 2023 024 [email or web address] 1 [place], [address], [place], [address], 17:32:29 culture, urine 2023 024 [facility] (Lab), [address], [place], [address], 14:32:16 Referral None recorded. Procedures None recorded. Surgeries total hysterectom y, laparoscopi c, with bilateral salpingo-oo phorectomy (SURG) 2023 024 [email or web address] 1 [facility] [address] [place], [address], 09:53:37 Imaging None recorded. Medication Orders ketorolac 60 mg/2 mL intramuscul ar solution 2023 024 [email or web address] 1 [facility], [address] [place] [address], [address], 4 17:20:00 ondansetron 8 mg disintegrat ing tablet 2023 024 [facility], [address] [place] [address], [address], 16:33:48 ketorolac 60 mg/2 mL intramuscul ar solution 2023 024 [email or web address] 1 Not available 17:20:00 tramadol 50 mg tablet 2023 024 [id number] [address] [facility], [place], [place], [id number], 17:49:54 Patient TargetsNo targets recorded. Patient InstructionsNo instructions recorded. Reason for Referral None Reported. Results Created Date Observation Date Name Description Value Unit Range Abnormal Flag Note LastModifiedBy Organization Detail LastModifiedTime 12/08/19 24 12/08/2023 CULTU RE: URINE result report SEE RESULT S BELOW Test: Cultu re: Urine Speci men Sourc e: Urine Voide d Speci men Type: Urine Speci men Date: 2023 5:15 PM Resul t Date: 2023 1:29 PM Resul t Statu s: Final resul t Abnor mal: No Resul ting Lab: [facility] [address] [facility] [address] Tel: CULTU RE ----- ----- ----- --- Organ ism(s ) consi stent with uroge nital or skin joey . Repea t cultu re if sympt oms indic ate. Not Available [facility] (Lab) [address], [place], [address], 12/10/2023 14:32:15 12/08/19 24 12/08/2023 pregn filippo test, urine HCG negati ve Not Available [place] [address], [place], [address], 12/08/2023 17:31:59 12/08/19 24 12/08/2023 urina lysis , dipst ick Leukocytes normal Not Available [facility] [address], [place], [address], 12/08/2023 17:28:58 12/08/19 24 12/08/2023 urina lysis , dipst ick Nitrite normal Not Available [place] [address], [place], [address], 12/08/2023 17:28:58 12/08/19 24 12/08/2023 urina lysis , dipst ick Urobilinogen normal Not Available [facility] dejuan [address], [place], [address], 12/08/2023 17:28:58 12/08/19 24 12/08/2023 urina lysis , dipst ick Protein trace Not Available [place] [address], [place], [address], 12/08/2023 17:28:58 12/08/19 24 12/08/2023 urina lysis , dipst ick pH 8 Not Available [place] [address], [place], [address], 12/08/2023 17:28:58 12/08/19 24 12/08/2023 urina lysis , dipst ick Blood +++ Not Available [place], [place], [address], 12/08/2023 17:28:58 12/08/19 24 12/08/2023 urina lysis , dipst ick Specific Arnett 1.020 Not Available [facility] [address], [place], [address], 12/08/2023 17:28:58 12/08/19 24 12/08/2023 urina lysis , dipst ick Ketone normal Not Available [place] [address], [place], [address], 12/08/2023 17:28:58 12/08/19 24 12/08/2023 urina lysis , dipst ick Bilirubin normal Not Available [facility] nate [address], [place], [address], 12/08/2023 17:28:58 12/08/19 24 12/08/2023 urina lysis , dipst ick Glucose normal Not Available [place] [address], [place], [address], 12/08/2023 17:28:58 12/08/19 24 12/08/2023 urina lysis , dipst ick Appearance normal Not Available [facility] liana [address], [place], [address], 12/08/2023 17:28:58 12/08/19 24 12/08/2023 urina lysis , dipst ick Color normal Not Available [place] [address], [place], [address], 12/08/2023 17:28:58 01/01/20 24 12/30/2023 CT, abdom en + pelvi s, w/ contr ast No observ ation record ed. [address], [place], [address], 01/01/2024 20:51:48 01/02/20 24 01/02/2024 CT, abdom en + pelvi s, w/ contr ast No observ ation record ed. [email or web address] [facility] [address], [place], [address], 01/03/2024 22:27:03 02/04/20 24 02/04/2024 MAMMO , diagn ostic , digit al, bilat eral No observ ation record ed. [facility] [address], [place], [address], 02/09/2024 11:27:44 Result Notes None recorded. Problems Name Problem SNOMED Code Status Onset Date Resolution Date Notes Provider Name and Address Organization Details Recorded Time Uterine fibroid complica ting antenata l care, baby not yet delivere d [id number] Completed 201704/27/2021 Maternal care for benign tumor of corpus uteri, third tri;Robert rded Elsewher e: No Locat ion: [facility] S ource: EHR Professor Of Psychology mara: N Franklin ce ID: 0001 Gera lable Time: 03:30:00 PM Martha calvert [facility] 15:29:05 Normal pregnanc y in multigra raya [id number] 4106 Completed 201704/27/2021 Encounte r for suprvsn of normal pregnanc y, second trimeste r;Record ed Elsewher e: No Locat ion: [facility] S ource: EHR Professor Of Psychology mara: N Franklin ce ID: 0001 Gera lable Time: 03:00:00 PM Martha calvert [facility] 1 15:32:02 Spotting per vagina in pregnanc y [id number] Completed 201404/27/2021 SPOTTING -ANTEPAR STEFANO;Robert rded Elsewher e: No Locat ion: [facility] S ource: EHR Professor Of Psychology mara: N Dmitryti ce ID: 0001 Gera lable Time: 04:00:00 PM Martha calvert [facility] 1 15:29:47 Amenorrh ea [id number] Completed 201504/27/2021 Amenorrh ea;Recor ded Elsewher e: No Locat ion: [facility]issel[facility] nate [facility] S ource: EHR Professor Of Psychology mara: N Dmitryti ce ID: 0001 Gera lable Time: 03:30:00 PM Martha calvert, [facility] 1 15:28:22 Pregnanc y-induce d hyperten geronimo Completed 201504/27/2021 Gestatio nal hyperten geronimo w/o signific ant proteinu gloria;Robert rded Elsewher e: No Locat ion: [facility] nate [facility] S ource: EHR Professor Of Psychology mara: N Practi ce ID: 0001 Gera lable Time: 06:00:00 PM Martha calvert, [facility] 1 15:29:13 Uterine size for dates discrepa ncy Completed 201604/27/2021 Uterine size-sydney e discrepa ncy, first trimeste r;Record ed Elsewher e: No Locat ion: [facility]issel[facility] nate [facility] S ource: EHR Professor Of Psychology mara: N Practi ce ID: 0001 Gera lable Time: 05:45:00 PM Martha calvert, [facility] 1 15:29:16 Urinary tract infectio us disease [id number] Completed 201604/27/2021 Urinary tract infectio n, site not specifie d;Record ed Elsewher e: No Locat ion: Ingeemilia nate [facility] S ource: EHR Professor Of Psychology mara: N Practi ce ID: 0001 Gera lable Time: 04:00:00 PM Martha calvert, [facility] 1 15:32:22 Hyperten geronimo in the obstetri c context Completed 201704/27/2021 Pre-exis ting essentia l htn comp pregnanc y, third trimeste r;Record ed Elsewher e: No Locat ion: [facility]isselorie nate [facility] S ource: EHR Professor Of Psychology mara: N Practi ce ID: 0001 Gera lable Time: 09:30:00 AM Martha calvert [facility] 15:29:10 Gestatio nal diabetes mellitus [id number] Completed 201704/27/2021 Gestatio nal diabetes mellitus in pregnanc y, unsp control; Recorded Elsewher e: No Locat ion: [facility]isselorie nate [facility] S ource: EHR Professor Of Psychology mara: N Practi ce ID: 0001 Gera lable Time: 03:00:00 PM Martha calvert, [facility] 15:27:50 Vaginiti s and vulvovag initis Completed 201404/27/2021 Vaginiti s;Record ed Elsewher e: No [facility]: EHR Professor Of Psychology mara: N Practi ce ID: 0001 Gera lable Time: 10:15:00 AM Martha calvert, [facility] 15:28:43 Gestatio n period, 33 weeks [id number] Completed 201704/27/2021 33 weeks gestatio n of pregnanc y;Record ed Elsewher e: No [facility]: EHR Professor Of Psychology mara: N Practi ce ID: 0001 Gera lable Time: 09:30:00 AM aMrtha calvert [facility] 15:32:37 Gestatio n period, 36 weeks [id number] Completed 201704/27/2021 36 weeks gestatio n of pregnanc y;Record ed Elsewher e: No [facility] our[facility]: EHR Professor Of Psychology mara: N Practi ce ID: 0001 Gera lable Time: 03:30:00 PM Martha Bockgavin calvert [facility] 15:32:18 Pre-exis ting hyperten geronimo in obstetri c context [id number] Completed 201404/27/2021 Unsp pre-exis ting htn comp pregnanc y, third trimeste r;Record ed Elsewher e: No [facility] our[facility]: EHR Professor Of Psychology mara: N Practi ce ID: 0001 Egra lable Time: 04:45:00 PM Martha calvert, [facility] 15:32:44 Gestatio n period, 28 weeks [id number] Completed 201704/27/2021 28 weeks gestatio n of pregnanc y;Record ed Elsewher e: No Locat ion: [facility] S ource: EHR Professor Of Psychology mara: N Practi ce ID: 0001 Gera lable Time: 08:15:00 AM Martha calvert, [facility] 15:32:48 Morbid obesity [id number] Completed 201404/27/2021 Obesity, Morbid;R ecorded Elsewher e: No Locat ion: [facility] S ource: EHR Professor Of Psychology mara: N Practi ce ID: 0001 Gera lable Time: 05:00:00 PM Martha calvert [facility] 15:29:06 Gestatio n period, 34 weeks [id number] Completed 201704/27/2021 34 weeks gestatio n of pregnanc y;Record ed Elsewher e: No Locat ion: [facility] S ource: EHR Professor Of Psychology mara: N Practi ce ID: 0001 Gera lable Time: 03:00:00 PM Martha calvert [facility] 15:28:17 Primigra raya [id number] Completed 201404/27/2021 Supervis ion of normal first pregnanc y;Record ed Elsewher e: No Locat ion: [facility] S ource: EHR Professor Of Psychology mara: N Practi ce ID: 0001 Gera lable Time: 05:00:00 PM Martha calvert, [facility] 1 15:28:13 Mastitis Completed 201504/27/2021 Mastitis ;Recorde d Elsewher e: No Locat ion: [facility] S ource: EHR Professor Of Psychology mara: N Practi ce ID: 0001 Gera lable Time: 12:00:00 PM Martha calvert, [facility] 1 15:32:00 Pregnanc y, childbir th and puerperi um finding Completed 201404/27/2021 Encounte r for supervis ion of normal first pregnanc y, third trimeste r;Record ed Elsewher e: No Locat ion: [facility] S ource: EHR Professor Of Psychology mara: N Practi ce ID: 0001 Gera lable Time: 05:30:00 PM Martha calvert, [facility] 1 15:30:03 Speciali zed medical examinat ion Completed 201204/27/2021 Gynecolo gical Examinat ion;Robert rded Elsewher e: No Locat ion: [facility] S ource: EHR Professor Of Psychology mara: N Practi ce ID: 0001 Gera lable Time: 01:30:00 PM Martha calvert, [facility] 1 15:32:09 Uterine leiomyom a [id number] Completed 201304/27/2021 Leiomyom a of uterus, unspecif ied;Robert rded Elsewher e: No Locat ion: [facility] S ource: EHR Professor Of Psychology mara: N Practi ce ID: 0001 Gera lable Time: 04:45:00 PM Martha calvert, [facility] 1 15:32:54 Body mass index 30+ - obesity [id number] Completed 201504/27/2021 Body mass index (BMI) 45.0-49. 9, adult;Re corded Elsewher e: No Locat ion: [facility] S ource: EHR Professor Of Psychology mara: N Dmitryti ce ID: 0001 Gera lable Time: 04:30:00 PM Martha calvert, [facility] 1 15:28:30 Acute vulvitis 16685198 Completed 201604/27/2021 Vulvitis ;Recorde d Elsewher e: No Locat ion: [facility] S ource: EHR Professor Of Psychology mara: N Dmitryti ce ID: 0001 Gera lable Time: 12:30:00 PM Martha calvert, [facility] 1 15:29:54 Finding by site Completed 201504/27/2021 Dermatit is;Recor ded Elsewher e: No [facility]: EHR Professor Of Psychology mara: N Dmitryti ce ID: 0001 Gera lable Time: 05:00:00 PM Martha calvert, [facility] 15:28:54 Pain of breast 80640615 Completed 201104/27/2021 Mastodyn ia;Recor ded Elsewher e: No Locat ion: [facility] S ource: EHR Professor Of Psychology mara: N Dmitryti ce ID: 0001 Gera lable Time: 02:45:00 PM Martha calvert, [facility] 1 15:32:13 HELLP syndrome [id number] Completed 201504/27/2021 Severe pre-ecla mpsia w/ hemolysi s, elevated liver enzymes and low platelet count;Re corded Elsewher e: No Locat ion: [facility] S ource: EHR Professor Of Psychology mara: N Dmitryti ce ID: 0001 Gera lable Time: 05:30:00 PM Martha calvert, [facility] 15:32:56 Hyperten sive disorder [id number] Completed 201604/27/2021 Essentia l (primary ) hyperten geronimo;Rec orded Elsewher e: No Locat ion: [facility] S ource: EHR Professor Of Psychology mara: N Dmitryti ce ID: 0001 Gera lable Time: 05:15:00 PM Martha calvert, [facility] 15:30:[address] Concept Completed 201604/27/2021 Encntr for general adult medical exam w/o abnormal findings ;Recorde d Elsewher e: No Locat ion: [facility] S ource: EHR Professor Of Psychology mara: N Dmitryti ce ID: 0001 Gera lable Time: 04:30:00 PM Martha calvert, [facility] 15:29:59 Pregnanc y test negative [id number] Completed 201104/27/2021 Pregnanc y examinat ion or test, negative result;R ecorded Elsewher e: No [facility] ource: EHR Professor Of Psychology mara: N Dmitryti ce ID: 0001 Gera lable Time: 03:00:00 PM Martha calvert, [facility] 15:29:31 Pelvic and perineal pain [id number] Completed 201704/27/2021 Pelvic pain;Rec orded Elsewher e: No [facility]at ion: [facility] ource: EHR Professor Of Psychology mara: N Practi ce ID: 0001 Gera lable Time: 02:00:00 PM Martha calvert, [facility] 15:29:46 Gestatio nal diabetes mellitus in [facility] [id number] Completed 201704/27/2021 Gestatio nal diabetes mellitus in [facility], diet controll ed;Recor ded Elsewher e: No [facility]at ion: [facility] ource: EHR Professor Of Psychology mara: N Practi ce ID: 0001 Gera lable Time: 02:45:00 PM Martha calvert [facility] 15:27:44 Speciali zemari medical examinat ion Completed 201404/27/2021 Other specifie d chlamydi al diseases ;Recorde d Elsewher e: No Locat ion: [facility] S ource: EHR Professor Of Psychology mara: N Practi ce ID: 0001 Gera lable Time: 05:00:00 PM Martha calvert [facility] 15:32:11 Antenata l screenin g Completed 201604/27/2021 Encounte r for antenata l screenin g for nuchal transluc ency;Rec orded Elsewher e: No Locat ion: [facility] S ource: EHR Professor Of Psychology mara: N Practi ce ID: 0001 Gera lable Time: 01:30:00 PM Martha calvert [facility] 15:29:26 Candidia sis [id number] Completed 201604/27/2021 Candidia sis;Robert rded Elsewher e: No Locat ion: [facility] S ource: EHR Professor Of Psychology mara: N Practi ce ID: 0001 Gera lable Time: 04:15:00 PM Martha calvert [facility] 15:32:35 Acute vaginiti s [id number] Completed 201404/27/2021 Acute vaginiti s;Record ed Elsewher e: No Locat ion: [facility] S ource: EHR Professor Of Psychology mara: N Practi ce ID: 0001 Gera lable Time: 05:00:00 PM Martha calvert [facility] 15:29:28 Human papillom a virus infectio n 812704298 Completed 201204/27/2021 HUMAN PAPILLOM AVIRUS IN CONDITIO NS CLASSIFI ED ELSEWHER E AND OF UNSPECIF IED SITE;Rec orded Elsewher e: No [facility]at [facility] S ource: EHR Professor Of Psychology mara: N Franklin ce ID: 0001 Gera lable Time: 03:30:00 PM Martha Patrick [facility], [facility] 15:29:20 Polyp of corpus uteri 74695474 Completed 201104/27/2021 Polyp of corpus uteri;Re corded Elsewher e: No [facility]at [facility] our[facility]: EHR Professor Of Psychology mara: Y Franklin ce ID: 0001 Gera lable Time: 02:15:00 PM Martha Patrick [facility] 15:27:48 Mental disorder in mother complica ting pregnanc y [id number] Completed 201704/27/2021 post depressi on;Recor ded Elsewher e: No [facility]at [facility] ource: EHR Professor Of Psychology mara: N Franklin ce ID: 0001 Gera lable Time: 03:30:00 PM Martha Patrick [facility], [facility] 15:32:25 Adult health examinat ion Completed 201104/27/2021 Routine Medical Exam;Rec orded Elsewher e: No [facility]at ion[facility] S ource: EHR Professor Of Psychology mara: N Dmitryti ce ID: 0001 Gera lable Time: 02:30:00 PM Martha Patrick [facility], [facility] 15:29:42 Tumor of uterine body complica ting antenata l care, baby not yet delivere d [id number] Completed 201404/27/2021 Tumors of body of uterus, antepart um conditio n or complica tion;Rec orded Elsewher e: No [facility] N Dmitryti ce ID: 0001 Gera lable Time: 02:15:00 PM Martha calvert [facility] 15:29:40 Cyst of ovary 17964551 Completed 201304/27/2021 Ovarian cyst;Rec orded Elsewher e: No Locat ion: [facility] S [facility]ce[facility]: N Dmitryti ce ID: 0001 Gera lable Time: 05:15:00 PM Martha calvert, [facility] 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 15:32:52 Procedur e on genitour inary system Completed 201704/27/2021 Encounte r for surgical aftercar e followin g surgery on the genitour inary system;R ecorded Elsewher e: No Locat ion: [facility] S [facility]ce: [facility]: N Dmitryti ce ID: 0001 Gera lable Time: 04:45:00 PM Martha calvert, [facility] 1 15:27:53 Postoper ative care Completed 201704/27/2021 Encounte r for surgical aftercar e followin g surgery on the genitour inary system;R ecorded Elsewher e: No Locat ion: [facility] S ource: EHR Professor Of Psychology mara: N Dmitryti ce ID: 0001 Gera lable Time: 04:45:00 PM Martha calvert, [facility] 07/30/202 1 15:28:15 Gestatio n period, 32 weeks [id number] Completed 201704/27/2021 32 weeks gestatio n of pregnanc y;Record ed Elsewher e: No Locat ion: [facility] S ource: EHR Professor Of Psychology mara: N Dmitryti ce ID: 0001 Gera lable Time: 03:00:00 PM Martha Patrick [facility] 15:32:33 Abdomina l pain [id number] Completed 201404/27/2021 Abdomina l pain;Rec orded Elsewher e: No Locat ion: [facility] S ource: EHR Professor Of Psychology mara: N Dmitryti ce ID: 0001 Gera lable Time: 10:15:00 AM Martha Patrick [facility] 15:28:56 Screenin g for malignan t neoplasm of cervix Completed 201104/27/2021 Screenin g for malignan t neoplasm s of the cervix;R ecorded Elsewher e: No Locat ion: [facility] S ource: EHR Professor Of Psychology mara: N Dmitryti ce ID: 0001 Gera lable Time: 03:00:00 PM Martha calvert [facility] 15:28:37 Gestatio n less than 9 weeks 807471808 Completed 201604/27/2021 Less than 8 weeks gestatio n of pregnanc y;Record ed Elsewher e: No Locat ion: [facility] S ource: EHR Professor Of Psychology mara: N Dmitryti ce ID: 0001 Gera lable Time: 03:00:00 PM Martha Patrick [facility] 15:31:50 Female genital organ symptoms [id number] Completed 201304/27/2021 Unspecif ied symptom associat ed with female genital organs;R ecorded Elsewher e: No Locat ion: [facility] S ource: EHR Professor Of Psychology mara: N Practi ce ID: 0001 Gera lable Time: 04:45:00 PM Martha calvert [facility] 1 15:28:45 Blood in urine [id number] Completed 201404/27/2021 HEMATURI A NOS;Robert rded Elsewher e: No Locat ion: Nanda sullivan [facility] S ource: EHR Professor Of Psychology mara: N Practi ce ID: 0001 Gera lable Time: 10:15:00 AM Martha calvert, [facility] 1 15:29:57 Hyperten geronimo in the obstetri c context Completed 201504/27/2021 Pre-exis ting essentia l hyperten geronimo complica ting pregnanc y, first trimeste r;Record ed Elsewher e: No Locat ion: [facility] S ource: EHR Professor Of Psychology mara: N Practi ce ID: 0001 Gera lable Time: 06:00:00 PM Martha calvert, [facility] 1 15:29:08 Evaluati on finding Completed 201904/27/2021 Hematuri a, unspecif ied;Robert rded Elsewher e: No Locat ion: [facility] S ource: EHR Professor Of Psychology mara: N Practi ce ID: 0001 Gera lable Time: 09:45:00 AM Martha calvert, [facility] 1 15:29:44 Gestatio n period, 30 weeks [id number] Completed 201404/27/2021 30 weeks gestatio n of pregnanc y;Record ed Elsewher e: No Locat ion: [facility] S ource: EHR Professor Of Psychology mara: N Practi ce ID: 0001 Gera lable Time: 12:00:00 PM Martha Patrick [facility] 15:32:[address] Concept Completed 201604/27/2021 Encntr for solar business developer exam (general ) (routine ) w/o abn findings ;Recorde d Elsewher e: No Locat ion: [facility] n[facility] S ource: EHR Professor Of Psychology mara: N Dmitryti ce ID: 0001 Gera lable Time: 04:30:00 PM Martha calvert, [facility] 15:30:00 Finding of sensatio n of breast Completed 201804/27/2021 Mastodyn ia;Recor ded Elsewher e: No Locat ion: Denisselorie nate [facility] S ource: EHR Professor Of Psychology mara: N Practi ce ID: 0001 Gera lable Time: 10:00:00 AM Martha calvert, [facility] 15:29:[address] Concept Completed 201704/27/2021 Anxiety; Recorded Elsewher e: No Locat ion: [facility]orie nate [facility] S ource: EHR Professor Of Psychology mara: N Practi ce ID: 0001 Gera lable Time: 05:30:00 PM Martha calvert, [facility] 15:28:24 Severe obesity complica ting pregnanc y [id number] Completed 201704/27/2021 Obesity complica ting pregnanc y, unspecif ied trimeste r;Record ed Elsewher e: No Locat ion: Inge nate [facility] S ource: EHR Professor Of Psychology mara: N Dmitryti ce ID: 0001 Gera lable Time: 04:00:00 PM Martha calvert, [facility] 15:28:28 Benign neoplasm of vulva [id number] Completed 201604/27/2021 Benign neoplasm of vulva;Re corded Elsewher e: No Locat ion: Denisselorie nate [facility] S ource: EHR Professor Of Psychology mara: N Practi ce ID: 0001 Gera lable Time: 03:45:00 PM Martha calvert, [facility] 1 15:32:50 Antenata l screenin g for malforma tion Completed 201704/27/2021 Encounte r for antenata l screenin g for malforma tions;Re corded Elsewher e: No Locat ion: Nanda sullivan [facility] S ource: EHR Professor Of Psychology mara: N Practi ce ID: 0001 Gera lable Time: 03:45:00 PM Martha calvert [facility] 15:32:28 Asymptom [facility] microsco pic hematuri a [id number] Completed 201704/27/2021 Asymptom [facility] pic hematuri a;Record ed Elsewher e: No Locat ion: [facility] S ource: EHR Professor Of Psychology mara: N Practi ce ID: 0001 Gera lable Time: 04:45:00 PM Martha calvert [facility] 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 15:32:51 Educatio n Completed 201504/27/2021 Encounte r for oth general cnsl and advice on contrace ption;Pr actice ID: 0001 Martha calvert [facility] 15:30:02 Inflamma tory disorder of breast [id number] Completed 201504/27/2021 Mastitis without abscess; Practice ID: 0001 Martha calvert [facility] 15:29:37 Vaginola bial hernia Completed 201604/27/2021 Other specifie d noninfla mmatory disorder s of vagina;P ractice ID: 0001 Martha Patrick enrike [facility] 15:29:34 Infectio n of nipple associat ed with lactatio n [id number] Completed 201704/27/2021 Infectio n of nipple associat ed with lactatio n;Record ed Elsewher e: No Locat ion: [facility] S ource: EHR Professor Of Psychology mara: N Practi ce ID: 0001 Gera lable Time: 01:45:00 PM Martha Darnell calvert [facility] 15:27:46 Leukorrh ea [id number] Completed 201404/27/2021 Leukorrh ea, not specifie d as infectiv e;Record ed Elsewher e: No Locat ion: [facility] S ource: EHR Professor Of Psychology mara: N Practi ce ID: 0001 Gera lable Time: 10:15:00 AM Martha Darnell calvert [facility] 15:29:03 Gestatio n period, 37 weeks [id number] Completed 201404/27/2021 37 weeks gestatio n of pregnanc y;Record ed Elsewher e: No [facility]: EHR Professor Of Psychology mara: N Practi ce ID: 0001 Gera lable Time: 05:00:00 PM Martha Darnell calvert [facility] 15:31:52 Finding of body mass index [id number] Completed 201604/27/2021 Body mass index (BMI) 40.0-44. 9, adult;Re corded Elsewher e: No [facility] S ource: EHR Professor Of Psychology mara: N Practi ce ID: 0001 Gera lable Time: 04:30:00 PM Martha calvert [facility] 15:29:49 Benign essentia l hyperten geronimo [id number] Completed 201404/27/2021 Hyperten geronimo, Benign;R ecorded Elsewher e: No Locat ion: [facility] S ource: EHR Professor Of Psychology mara: N Practi ce ID: 0001 Gera lable Time: 05:00:00 PM Martha calvert, [facility] 15:27:56 Gestatio n period, 35 weeks [id number] Completed 201404/27/2021 35 weeks gestatio n of pregnanc y;Record ed Elsewher e: No Locat ion: [facility] S ource: EHR Professor Of Psychology mara: N Practi ce ID: 0001 Gera lable Time: 05:00:00 PM Martha calvert, [facility] 15:32:42 Secondar y amenorrh ea [id number] Completed 201604/27/2021 Secondar y amenorrh ea;Pract ice ID: 0001 Martha calvert, [facility] 15:28:26 Pregnanc y detectio n examinat ion Completed 201604/27/2021 Encounte r for pregnanc y test, result positive ;Practic e ID: 0001 Martha calvert, [facility] 15:32:32 Gestatio n period, 19 weeks [id number] Completed 201704/27/2021 19 weeks gestatio n of pregnanc y;Practi ce ID: 0001 Martha calvert, [facility] 15:32:16 Gestatio n period, 20 weeks [id number] Completed 201704/27/2021 20 weeks gestatio n of pregnanc y;Practi ce ID: 0001 Martah calvert, [facility] 15:29:01 Benign essentia l hyperten geronimo complica ting pregnanc y, childbir th and the puerperi um - delivere d [id number] Completed 201404/27/2021 Benign essentia l hyperten geronimo with delivery ;Recorde d Elsewher e: No Locat ion: [facility] S ource: EHR Professor Of Psychology mara: N Dmitryti ce ID: 0001 Gera lable Time: 03:30:00 PM Martha calvert, [facility] 15:28:46 Complica tion of pregnanc y, childbir th and/or puerperi um [id number] Completed 201704/27/2021 Oth diseases and conditio ns compl preg/chl dbrth;Pr actice ID: 0001 Martha Patrick [facility], [facility] 15:29:24 Atypical squamous cells of undeterm ined signific ance on cervical Papanico laou smear [id number] Completed 201204/27/2021 Papanico laou smear of cervix with atypical squamous cells of undeterm ined signific ance (ASC-US) ;Recorde d Elsewher e: No Locat ion: [facility] S ource: EHR Professor Of Psychology mara: N Dmitryti ce ID: 0001 Gera lable Time: 03:30:00 PM Martha calvert, [facility] 15:31:55 Atypical squamous cells on cervical Papanico laou smear cannot exclude high grade squamous intraepi thelial lesion [id number] Completed 201204/27/2021 Papanico laou smear of cervix with atypical squamous cannot exclude high grade squamous intraepi thelial lesion (ASC-H); Recorded Elsewher e: No Locat ion: [facility] S ource: EHR Professor Of Psychology mara: N Dmitryti ce ID: 0001 Gera lable Time: 03:30:00 PM Martha calvert, [facility] 15:31:56 Single live [id number] Completed 201704/27/2021 Single live ;Re corded Elsewher e: No Locat ion: Nanda [facility] S ource: EHR Professor Of Psychology mara: N Practi ce ID: 0001 Gera lable Time: 09:45:00 AM Martha Darnell calvert [facility] 15:28:33 Abnormal glucose toleranc e in mother complica ting pregnanc y, childbir th AND/OR puerperi [id number] Completed 201704/27/2021 Abnormal glucose complica ting pregnanc y;Record ed Elsewher e: No Locat ion: Nanda [facility] S ource: EHR Professor Of Psychology mara: N Practi ce ID: 0001 Gera lable Time: 09:03:24 AM Martha calvert [facility] 15:30:09 Abscess of vulva [id number] Completed 201004/27/2021 BOIL VULVA LABIA;Pr actice ID: 0001 Martha calvert, [facility] 15:32:24 Carbuncl e of buttock [id number] Completed 201004/27/2021 BOIL BUTTOCK ANUS;Pra ctice ID: 0001 Martha calvert, [facility] 15:32:05 Gestatio n period, 38 weeks [id number] Completed 201404/27/2021 38 weeks gestatio n of pregnanc y;Record ed Elsewher e: No Locat ion: [facility] S ource: EHR Professor Of Psychology mara: N Practi ce ID: 0001 Gera lable Time: 05:00:00 PM Martha calvert [facility] 15:28:20 Venereal disease screenin g Completed 201404/27/2021 Screenin g examinat ion for venereal disease; Recorded Elsewher e: No Locat ion: [facility] S ource: EHR Professor Of Psychology mara: N Practi ce ID: 0001 Gera lable Time: 05:00:00 PM Martha calvert, [facility] 15:28:35 Female infertil ity associat ed with anovulat ion [id number] Completed 201304/27/2021 Infertil ity, female, associat ed with anovulat ion;Robert rded Elsewher e: No Locat ion: [facility] S ource: EHR Professor Of Psychology mara: N Practi ce ID: 0001 Gera lable Time: 04:30:00 PM Martha calvert, [facility] 15:28:58 Head and neck swelling [id number] Completed 201404/27/2021 Swelling of face;Rec orded Elsewher e: No Locat ion: [facility] S ource: EHR Professor Of Psychology mara: N Practi ce ID: 0001 Gera lable Time: 10:15:00 AM Martha calvert, [facility] 15:32:07 Gestatio n period, 24 weeks [id number] Completed 201704/27/2021 24 weeks gestatio n of pregnanc y;Practi ce ID: 0001 Martha Bockgavin calvert, [facility] 15:29:52 Gestatio n period, 23 weeks [id number] Completed 201704/27/2021 23 weeks gestatio n of pregnanc y;Practi ce ID: 0001 Martha Darnell enrike, [facility] 15:32:45 Pregnanc y, childbir th and puerperi um finding Completed 201704/27/2021 Oth pregnanc y related conditio ns, first trimeste r;Practi ce ID: 0001 Martha calvert, [facility] 15:29:18 Dyspnea [id number] Completed 201704/27/2021 Shortnes s of breath;P ractice ID: 0001 Martha calvert, [facility] 15:29:39 Gestatio n period, 25 weeks [id number] Completed 201704/27/2021 25 weeks gestatio n of pregnanc y;Practi ce ID: 0001 Martha calvert, [facility] 15:32:30 Gestatio n period, 29 weeks [id number] Completed 201704/27/2021 29 weeks gestatio n of pregnanc y;Practi ce ID: 0001 Martha calvert, [facility] 15:31:58 Diet educatio n Completed 201704/27/2021 Dietary counseli ng and surveill ance;Pra ctice ID: 0001 Martha calvert, [facility] 15:27:51 Dietary manageme nt surveill ance Completed 201704/27/2021 Dietary counseli ng and surveill ance;Pra ctice ID: 0001 Martha calvert, [facility] 15:31:44 Dysfunct ional uterine bleeding Completed 201104/27/2021 Other disorder s of menstrua tion and other abnormal bleeding from female genital tract;Re corded Elsewher e: No Locat ion: Nanda sullivan [facility] S ource: EHR Professor Of Psychology mara: N Practi ce ID: 0001 Gera lable Time: 09:15:00 AM Martha calvert [facility] 15:28:39 Microsco pic hematuri a [id number] Completed 201104/27/2021 MICROSCO PIC HEMATURI A;Record ed Elsewher e: No [facility] ource: EHR Professor Of Psychology mara: N Dmitryti ce ID: 0001 Gera lable Time: 03:00:00 PM Martha calvert [facility] 15:28:41 Mass of left breast [id number] 760508 Completed 201804/27/2021 Mass in the left breast;R ecorded Elsewher e: No Locat ion: [facility] S ource: EHR Professor Of Psychology mara: N Practi ce ID: 0001 Gera lable Time: 10:00:00 AM Martha calvert, [facility] 15:27:59 Blood leukocyt e number above referenc e range [id number] Completed 201404/27/2021 Elevated white blood cell count, unspecif ied;Robert rded Elsewher e: No Locat ion: [facility] S ource: EHR Professor Of Psychology mara: N Dmitryti ce ID: 0001 Gera lable Time: 05:15:00 PM Martha calvert, [facility] 15:30:10 Breast lump [id number] Completed 201804/27/2021 Unspecif ied lump in unspecif ied breast;R ecorded Elsewher e: No Locat ion: [facility] S ource: EHR Professor Of Psychology mara: N Dmitryti ce ID: 0001 Gera lable Time: 10:00:00 AM Martha calvert [facility] 1 15:32:47 Right lower quadrant pain [id number] Completed 201404/27/2021 Right lower quadrant pain;Rec orded Elsewher e: No Locat ion: [facility] S ource: EHR Professor Of Psychology mara: N Practi ce ID: 0001 Gera lable Time: 12:00:00 PM Martha calvert [facility] 15:29:51 Pregnanc y test positive [id number] Completed 201404/27/2021 Pregnanc y examinat ion or test, positive result;R ecorded Elsewher e: No Locat ion: Nanda [facility] S ource: EHR Professor Of Psychology mara: N Practi ce ID: 0001 Gera lable Time: 05:00:00 PM Martha calvert, [facility] 15:29:29 Complica tion occurrin g during pregnanc y Completed 201704/27/2021 Infectio n oth prt genitl trct in pregnanc y, third trimeste r;Dmitryti ce ID: 0001 Martha calvert, [facility] 15:29:15 Female infertil ity [id number] Completed 201304/27/2021 Infertil ity, female, of unspecif ied origin;P ractice ID: 0001 Martha Patrick [facility], [facility] 15:32:20 Dysuria [id number] Completed 201304/27/2021 Dysuria; Practice ID: 0001 Martha calvert, [facility] 15:32:04 heart finding Completed 201704/27/2021 Abnlt in heart rate and rhythm comp labor and delivery ;Practic e ID: 0001 Martha calvert, [facility] 15:29:23 Elevated blood-pr essure reading without diagnosi s of hyperten geronimo [id number] Completed 201704/27/2021 Elevated blood-pr essure reading, w/o diagnosi s of htn;Prac dmitriy ID: 0001 Martha calvert, [facility] 15:30:05 Threaten ed prematur e labor - not delivere d [id number] Completed 201404/27/2021 THRT LIA LABOR-AN TEPART;P ractice ID: 0001 [facility] 15:28:53 Epigastr ic pain [id number] Completed 201404/27/2021 ABDMNAL PAIN EPIGASTR IC;Pract ice ID: 0001 [facility] 15:32:39 Swelling of limb [id number] Completed 201404/27/2021 SWELLING OF LIMB;Pra ctice ID: 0001 [facility] 15:32:41 Headache [id number] Completed 201404/27/2021 HEADACHE ;Practic e ID: 0001 [facility] 15:29:32 Mild hypereme sis-not delivere d [id number] Completed 201404/27/2021 HYPEREME SIS-ANTE PAR Mild;Pra ctice ID: 0001 [facility] 15:28:48 Lacerati on of female perineum Completed 201404/27/2021 Second degree perineal lacerati on during delivery ;Practic e ID: 0001 [facility] 15:29:21 Hyperten geronimo in the obstetri c context Completed 201504/27/2021 Pre-exis ting essentia l htn comp pregnanc y, unsp trimeste r;Practi ce ID: 0001 [facility] 15:29:12 Problem Notes None recorded. Procedures Surgical History Date Name Laterality Status Provider Name and Address Organization Details Recorded Time 024 TOTAL HYSTERECTOMY, LAPAROSCOPIC, WITH BILATERAL SALPINGO-OOPHORECT TYRONE (SURG) completed Obed Song [facility] 12/24/2023 15:05:34 022 Date of Last Pap Smear completed Sana Bean [facility] 06/20/2023 14:08:42 022 Endometrial Biopsy completed Benedict Rick MD [address], [place], [address], [facility] 04/11/2022 22:28:30 022 endometrial biopsy completed Gabi Mauricio [facility] 12/08/2023 17:21:44 022 endoscopy completed Gabi Mauricio [facility] 02/20/2022 19:42:08 021 Breast Surgery completed Gabi Mauricio [facility] 02/20/2022 19:40:20 021 Date of Last Mammogram completed Martha Patrick [facility] 04/30/2021 15:41:08 021 completed Martha Patrick [facility] 04/30/2021 15:41:23 018 delivery completed Gabi Mauricio [facility] 02/20/2022 19:41:32 017 biopsy of vulva completed Gabi Mauricio [facility] 02/20/2022 19:41:52 016 cholecystectomy completed Gabikate Mauricio [facility] 02/20/2022 19:42:[address] segment monitoring completed Gabi Mauricio [facility] 02/20/2022 19:43:39 013 Colposcopy completed Gabi Mauricio [facility] 02/20/2022 19:44:17 013 Colposcopy completed Gabi Mauricio [facility] 02/20/2022 19:42:48 012 Laparoscopy completed Gabi Mauricio [facility] 02/20/2022 19:41:16 010 Date of Last Colonoscopy completed Gabi Mauricio [facility] 02/20/2022 19:43:55 010 Colonoscopy completed Gabikate Mauricio [facility] 02/20/2022 19:42:22 008 Laparoscopy completed Gabi Mauricio [facility] 02/20/2022 19:40:36 Imaging Results Imaging Date Name Status LastModified by Organiz ation Details LastModified Time 12/30/2023 CT, abdomen + pelvis, w/ contrast completed [address], [address], 01/01/2024 20:51:48 01/02/2024 CT, abdomen + pelvis, w/ contrast completed [address], [address], 01/03/2024 22:27:03 02/04/2024 MAMMO, diagnostic, digital, bilateral completed [facility] [address], [place], [address], 02/09/2024 11:27:44 Procedure Notes None recorded. Medical Equipment None Reported. Allergies Allergen ID Allergen Name Allergen Category Reaction Reaction Severity Criticality Documentation Date Start Date Code Code System Note Provider Name and Address Organization Details Recorded Time 37529 Medicinal product containin g penicilli n and acting as antibacte rial agent (product) medicatio n Not available Not available Not available 02/01/2022 31995 05 SNOMED Gabi calvert [facility] 16:33:01 19926 Reglan medicatio n Not available Not available Not available 02/01/2022 9230 RxNorm Dorys Chavarria [facility] 4 16:43:02 2390 fluconazo le medicatio n Not available Not available Not available 07/10/2020 4450 RxNorm Check ed with jane rock and she sandy s aller gy. Martha Patrick [facility] 1 15:38:58 2391 promethaz ine medicatio n Not available Not available Not available 07/10/2020 8745 RxNorm Justine Rodriguez [facility] 0 18:51:09 Medications Name Sig Start Date Stop Date Status Note LastModified by Organization Details LastModified Time cyclobenz aprine 10 mg tablet 12/07 completed Not Available Not Available Not Available amoxicill in 500 mg capsule TAKE 1 CAPSULE BY MOUTH EVERY 8 HOURS 12/02 completed Not Available Not Available Not Available medroxypr ogesteron e 10 mg tablet TAKE 1 TABLET BY MOUTH EVERY DAY FOR 10 DAYS 06/20 completed Not Available Not Available Not Available dicloxaci llin 500 mg capsule take 1 capsule by oral route every 6 hours 1 hour before a meal or 2 hours after a meal 11/19 completed Prescrib ed Elsewher e: No Locat ion: [facility] nate [facility] odify By: remigio Sullivan ncounter DateTime : 04/15/20 19 12:11:22 PM Not Available Not Available Not Available buspirone 5 mg tablet take 1 tablet by oral route 3 times every day 06/13 completed Prescrib ed Elsewher e: Yes Loca tion: Nanda sullivan [facility] odify By: ammarita Sullivan ncounter DateTime : 10/19/19 16 02:45:00 PM Not Available Not Available Not Available neomycin- polymyxin -hydrocor t 3.5 mg/mL-10, 000 unit/mL-1 % ear solution 12/07 completed Not Available Not Available Not Available Colace 100 mg capsule take 1 capsule by oral route every day at bedtime as needed 04/23 completed Prescrib ed Elsewher e: Yes Loca tion: Nanda sullivan [facility] odify By: jeferson andrewuntmarlon DateTime : 03/30/20 18 04:45:00 PM Not Available Not Available Not Available naproxen 375 mg tablet TAKE 1 TABLET BY MOUTH TWICE DAILY 12/07 completed Not Available Not Available Not Available labetalol 200 mg tablet TAKE 1 TABLET BY ORAL ROUTE 2 TIMES EVERY DAY 11/19 completed Prescrib ed Elsewher e: No Locat ion: [facility] odify By: remigio andrewer DateTime : 03/17/20 18 03:37:47 PM Not Available Not Available Not Available ketoconaz ole 2 % shampoo APPLY TOPICALL Y 2 TIMES A WEEK 12/02 completed Not Available Not Available Not Available Percocet 2.5 mg-325 mg tablet take 1 tablet by oral route every 6 hours as needed 03/16 completed Prescrib ed Elsewher e: Yes [facility] By: tom Sullivan ncounter DateTime : 06/22/20 12 09:46:35 AM Not Available Not Available Not Available Norvasc 10 mg tablet TAKE 1 TABLET BY ORAL ROUTE EVERY DAY 02/19 completed Prescrib ed Elsewher e: No Locat ion: [facility] odify By: jeferson Sullivan ncounter DateTime : 01/19/20 16 10:30:18 AM Not Available Not Available Not Available azithromy phuc 250 mg tablet TAKE 1 TABLET BY MOUTH DAILY 06/20 completed Not Available Not Available Not Available ibuprofen 800 mg tablet TAKE 1 TABLET BY MOUTH THREE TIMES DAILY NEEDED FOR PAIN active Not Available Not Available No t Available nystatin 100,000 unit/gram topical ointment 07/11 completed Not Available Not Available Not Available fluconazo le 150 mg tablet TAKE 1 TABLET BY MOUTH ON DAYS 1 AND 3 active Not Available Not Available No t Available metoprolo l succinate ER 50 mg tablet,ex tended release 24 hr TAKE 1 TABLET BY MOUTH DAILY WITH 100 MG TABLET FOR TOTAL DAILY DOSE OF 150 MG active Not Available Not Available No t Available hydrocodo ne 5 mg-acetam inophen 325 mg tablet 04/27 completed Not Available Not Available Not Available fluconazo le 200 mg tablet take 1 tablet by oral route every other day. 07/11 completed Not Available Not Available Not Available sucralfat e 1 gram tablet TK ONE T PO QD AC AND QHS PRN 04/30 completed Not Available Not Available Not Available ondansetr on HCl 4 mg tablet TAKE 1 TO 2 TABLETS BY MOUTH EVERY 8 HOURS NEEDED FOR NAUSEA OR VOMITING 12/07 completed Not Available Not Available Not Available prednison e 20 mg tablet TAKE 2 TABLETS BY MOUTH DAILY FOR 5 DAYS 06/20 completed Not Available Not Available Not Available Prometriu m 100 mg capsule Take 1 capsule every day by oral route for 10 days. 12/03 completed Not Available Not Available Not Available metoprolo l succinate ER 100 mg tablet,ex tended release 24 hr TAKE 1 TABLET BY MOUTH EVERY DAY active Not Available Not Available No t Available gabapenti n 400 mg capsule take 1 capsule by oral route every day 11/07 completed Prescrib ed Elsewher e: Yes Loca tion: [facility] odify By: symone rios DateTime : 11/19/19 12 02:30:00 PM Not Available Not Available Not Available prednison e 5 mg tablet TAKE 2 TABLETS BY MOUTH EVERY MORNING ON DAYS 1-4 THEN 1 TABLET ON DAYS 5-7. 06/20 completed Not Available Not Available Not Available methylpre dnisolone 4 mg tablet TAKE 1 TABLET BY MOUTH TWICE DAILY 06/20 completed Not Available Not Available Not Available Flonase 50 mcg/actua tion nasal spray,radha pension spray 1 spray by intranas al route every day in each nostril 11/26 completed Prescrib ed Elsewher e: No Locat ion: [facility] odify By: rogelio melchor DateTime : 09/08/20 14 08:30:00 AM Not Available Not Available Not Available metronida zole 500 mg tablet Take 1 tablet every 12 hours by oral route for 7 days. 04/27 completed Not Available Not Available Not Available ciproflox acin 500 mg tablet take 1 tablet (500MG) by oral route every 12 hours active Not Available Not Available No t Available sulfameth oxazole 800 mg-trimet hoprim 160 mg tablet TAKE 1 TABLET BY MOUTH EVERY 12 HOURS FOR 7 DAYS active Not Available Not Available No t Available omeprazol e 40 mg capsule,d elayed release active Not Available Not Available Not Available Vitamins B Complex capsule 02/19 completed Prescrib ed Elsewher e: Yes Loca tion: Inge nate [facility] odify By: jeferson mcadams DateTime : 04/09/20 12 03:00:00 PM Not Available Not Available Not Available tramadol 50 mg tablet TAKE 1 TABLET BY MOUTH EVERY 6 HOURS active Not Available Not Available No t Available spironola ctone 25 mg tablet 04/30 completed Not Available Not Available Not Available ondansetr on 8 mg disintegr ating tablet Place 1 tablet twice a day by translin gual route as needed for 3 days. active Not Available Not Available No t Available Nexium 20 mg capsule,d elayed release take 1 capsule by oral route every day at least 1 hour before a meal swallowi ng whole. Do not crush or chew granules . 04/16 completed Prescrib ed Elsewher e: Yes Loca tion: [facility] odify By: [email or web address] z Juliane rios DateTime : 03/30/20 18 04:45:00 PM Not Available Not Available Not Available Macrobid 100 mg capsule take 1 capsule by oral route every 12 hours with food 09/25 completed Prescrib ed Elsewher e: No Locat ion: [facility] odify By: smcaley Ute melchor DateTime : 09/08/20 14 08:30:00 AM Not Available Not Available Not Available nystatin- triamcino lone 100,000 unit/gram -0.1 % topical ointment apply by topical route 2 times every day to the affected area(s) x 5 days 04/27 completed Prescrib ed Elsewher e: No Locat ion: [facility] odify By: rufina vásquez DateTime : 11/19/19 20 09:45:00 AM Not Available Not Available Not Available oxycodone -acetamin ophen 5 mg-325 mg tablet TAKE 1 TABLET BY MOUTH EVERY 6 HOURS NEEDED FOR PAIN active Not Available Not Available No t Available ofloxacin 0.3 % ear drops INSTILL 5 DROPS INTO LEFT EAR 3-4 TIMES A DAY. USE UNTIL FOLLOW UP 12/07 completed Not Available Not Available Not Available amoxicill in 875 mg tablet TAKE 1 TABLET BY MOUTH EVERY 12 HOURS FOR 10 DAYS 12/02 completed Not Available Not Available Not Available alprazola m 0.25 mg tablet 07/11 completed Not Available Not Available Not Available lorazepam 0.5 mg tablet take 2 tablet (1MG) by oral route 3 times every day as needed 03/16 completed [facility] ed Elsewher e: No Locat ion: [facility] odify By: tom Sullivan ncounter DateTime : 11/19/19 02:30:00 PM Not Available Not Available Not Available methocarb genny 750 mg tablet TAKE 1 TABLET BY MOUTH THREE TIMES DAILY NEEDED FOR MUSCLE PAIN active Not Available Not Available No t Available estradiol 1 mg tablet TAKE 1 TABLET BY MOUTH DAILY active Not Available Not Available No t Available Diflucan 100 mg tablet take 1 tablet by oral route every day 12/13 completed [facility] ed Elsew e: No Locat ion: [facility] odify By: [email or web address] trick En counter DateTime : 11/26/19 05:30:00 PM Not Available Not Available Not Available oxycodone -acetamin ophen 10 mg-325 mg tablet TAKE 1 TABLET BY MOUTH EVERY 6 HOURS NEEDED FOR PAIN active Not Available Not Available No t Available betametha sone valerate 0.1 % topical cream apply by topical route every day a thin layer to the affected area(s) 06/15 completed Prescrib ed Elsew e: No [facility] By: ruben Sullivan ncounter DateTime : 12/14/19 03:45:00 PM Not Available Not Available Not Available ciproflox acin 0.3 % eye drops INSTILL 5 DROPS IN THE LEFT EAR THREE TIMES DAILY FOR 10 DAYS 06/20 completed Not Available Not Available Not Available cephalexi n 500 mg capsule 12/07 completed Not Available Not Available Not Available pantopraz ole 40 mg tablet,de layed release TAKE 1 TABLET BY MOUTH DAILY active Not Available Not Available No t Available oseltamiv ir 75 mg capsule TAKE 1 CAPSULE BY MOUTH EVERY 12 HOURS FOR 5 DAYS 12/07 completed Not Available Not Available Not Available triamcino lone acetonide 0.1 % topical ointment 07/11 completed Not Available Not Available Not Available nystatin 100,000 unit/gram topical cream apply by topical route 2 times every day to the nipple 03/01 completed Prescrib ed Elsewher e: No [facility] By: ruben andrewunter DateTime : 12/14/19 17 03:45:00 PM Not Available Not Available Not Available lisinopri l 10 mg tablet active Not Available Not Available Not Available prednison e 50 mg tablet TAKE 1 TABLET BY MOUTH DAILY 06/20 completed Not Available Not Available Not Available progester one micronize d 200 mg capsule TAKE 1 CAPSULE BY MOUTH EVERY DAY FOR 12 DAYS IN THE EVENING PER 30 DAY CYCLE active Not Available Not Available No t Available Vitamin B-6 100 mg tablet 11/19 completed Prescrib ed Elsewher e: Yes Loca tion: [facility] odify By: remigio Sullivan ncounter DateTime : 03/30/20 18 04:45:00 PM Not Available Not Available Not Available betametha sone dipropion ate 0.05 % topical cream APPLY TOPICALL Y TO THE AFFECTED AREA THREE TIMES DAILY NEEDED active Not Available Not Available No t Available buspirone 7.5 mg tablet TAKE 2 TABLETS BY MOUTH TWICE DAILY 12/07 completed Not Available Not Available Not Available triamtere ne 37.5 mg-hydroc hlorothia zide 25 mg tablet TAKE 1 TABLET BY MOUTH DAILY active Not Available Not Available No t Available mupirocin 2 % topical ointment APPLY TOPICALL Y TO THE AFFECTED AREA TWICE DAILY active Not Available Not Available No t Available Seroquel 100 mg tablet take 1 tablet by oral route 2 times every day 04/09 completed Prescrib ed Elsewher e: Yes Loca tion: [facility] odify By: isaac rios DateTime : 11/19/19 12 02:30:00 PM Not Available Not Available Not Available mirtazapi ne 15 mg tablet TAKE 1 TABLET BY MOUTH EVERY DAY AT BEDTIME active Not Available Not Available No t Available clobetaso l 0.05 % topical ointment apply by topical route 2 times every day a thin layer to the affected area(s) 08/11 completed Prescrib ed Elsewher e: No Locat ion: [facility] odify By: mike Unger r DateTime : 05/09/20 17 12:30:00 PM Not Available Not Available Not Available Vitamin B-6 50 mg tablet 11/26 completed Prescrib ed Elsewher e: Yes Loca tion: [facility] odify By: rogelio Unger r DateTime : 08/26/20 12 02:15:00 PM Not Available Not Available Not Available Nor-Q-D 0.35 mg tablet TAKE 1 TABLET BY ORAL ROUTE EVERY DAY 02/19 completed Prescrib ed Elsewher e: No Locat ion: [facility] odify By: ammarita Sullivan ncounter DateTime : 01/19/20 16 10:30:18 AM Not Available Not Available Not Available methylpre dnisolone 4 mg tablets in a dose pack 12/07 completed Not Available Not Available Not Available labetalol 100 mg tablet take 1 tablet by oral route 2 times every day 01/26 completed Prescrib ed Elsewher e: No Locat ion: [facility] odify By: bianca rios DateTime : 01/06/20 18 10:57:26 AM Not Available Not Available Not Available Vitamin D2 1,250 mcg (50,000 unit) capsule take 1 capsule by oral route every week 11/19 completed Prescrib ed Elsewher e: Yes Loca tion: [facility] odify By: remigio Sullivan ncounter DateTime : 03/30/20 18 04:45:00 PM Not Available Not Available Not Available ketorolac 60 mg/2 mL intramusc ular solution Inject 1 mL every 6 hours by intramus cular route as directed for 30 days. 12/07 completed Not Available Not Available Not Available Zoloft 100 mg tablet take 1 tablet by oral route every day 04/30 completed Prescrib ed Elsewher e: No Locat ion: [facility] odify By: ruben Sullivan ncounter DateTime : 07/03/20 18 03:30:00 PM Not Available Not Available Not Available Terazol 7 0.4 % vaginal cream insert 1 applicat orful by vaginal route every day for 7 days at bedtime 12/10 completed Prescrib ed Elsewher e: No Locat ion: [facility] odify By: ruben Sullivan ncounter DateTime : 12/05/19 17 04:15:00 PM Not Available Not Available Not Available Zoloft 25 mg tablet take 1 tablet by oral route every day 01/28 completed Prescrib ed Elsewher e: Yes [facility] By: eunice Cardozo ter DateTime : 10/19/19 16 02:45:00 PM Not Available Not Available Not Available hydroxyzi ne HCl 10 mg tablet 02/03 completed Prescrib ed Elsewher e: Yes Loca tion: [facility] odify By: lizzy mason DateTime : 05/26/20 14 11:00:00 AM Not Available Not Available Not Available clobetaso l 0.05 % scalp solution APPLY TOPICALL Y TO THE AFFECTED AREA DAILY 12/02 completed Not Available Not Available Not Available ondansetr on 4 mg disintegr ating tablet 12/03 completed Not Available Not Available Not Available Strovite 500 mg-0.5 mg tablet take 1 tablet by oral route every day with food 08/26 completed Prescrib ed Elsewher e: Yes [facility] odify By: mariaelena rios DateTime : 04/09/20 12 03:00:00 PM Not Available Not Available Not Available Imitrex 25 mg tablet take 1 tablet by oral route once with fluids as early as possible after the onset of a migraine attack;m ay repeat after 2 hours if headache returns, not to exceed 200mg in 24hrs 10/19 completed Prescrib ed Elsewher e: Yes Loca tion: [facility] odify By: jeferson mcadams DateTime : 08/26/20 12 02:15:00 PM Not Available Not Available Not Available metformin ER 500 mg tablet,ex tended release 24 hr TAKE 2 TABLETS BY MOUTH TWICE DAILY active Not Available Not Available No t Available clotrimaz ole 1 % topical cream APPLY TOPICALL Y TO THE AFFECTED AREA THREE TIMES DAILY NEEDED active Not Available Not Available No t Available sertralin e 50 mg tablet take 1 tablet by oral route every day 04/30 completed Not Available Not Available Not Available magnesium 30 mg tablet 11/19 completed Prescrib ed Elsewher e: Yes [facility] By: remigio mcadams DateTime : 03/30/20 18 04:45:00 PM Not Available Not Available Not Available Clomid 50 mg tablet take 1 tablet (50MG) by oral route every day 03/16 completed Prescrib ed Elsewher e: No Locat ion: [facility] odify By: tom mcadams DateTime : 11/24/19 13 10:19:57 AM Not Available Not Available Not Available amoxicill in 875 mg-potass ium clavulana te 125 mg tablet TAKE 1 TABLET BY MOUTH EVERY 12 HOURS FOR 10 DAYS 12/02 completed Not Available Not Available Not Available metoprolo l tartrate 5 mg/5 mL intraveno us solution inject 5 millilit er by intraven ous route every 2 minutes for 3 doses 04/27 completed Prescrib ed Elsewher e: Yes [facility] odify By: remigio mcadams DateTime : 11/19/19 20 09:45:00 AM Not Available Not Available Not Available Reglan 5 mg tablet take 1 tablet by oral route 4 times every day 30 minutes before meals and at bedtime 03/30 completed Prescrib ed Elsewher e: No Locat ion: [facility] odify By: [email or web address] z Encoun ter DateTime : 11/20/19 18 01:51:48 PM Not Available Not Available Not Available buspirone 15 mg tablet TAKE 1 AND 1/2 TABLETS BY MOUTH EVERY MORNING AND 2 TABLETS BY MOUTH EVERY EVENING active Not Available Not Available No t Available neomycin- polymyxin -hydrocor t 3.5 mg-10,000 unit/mL-1 % ear drops,radha p SHAKE LIQUID AND INSTILL 4 DROPS TO RIGHT EAR EVERY 8 HOURS FOR 10 DAYS 06/20 completed Not Available Not Available Not Available B-100 Complex tablet 11/07 completed Prescrib ed Elsewher e: Yes Loca tion: [facility] odify By: symone corrales Encoun ter DateTime : 08/14/20 16 04:15:00 PM Not Available Not Available Not Available magnesium 200 mg tablet 11/26 completed Prescrib ed Elsewher e: Yes Loca tion: [facility] odify By: rogelio Cardozote r DateTime : 11/19/19 12 02:30:00 PM Not Available Not Available Not Available escitalop michelle 10 mg tablet TAKE 1 TABLET BY MOUTH DAILY 04/30 completed Not Available Not Available Not Available Calcium+D 400 mg -133.3 unit tablet 05/26 completed Prescrib ed Elsewher e: Yes [facility] By: mike Unger r DateTime : 12/16/19 13 02:30:00 PM Not Available Not Available Not Available eletripta n 20 mg tablet 12/07 completed Not Available Not Available Not Available Flexeril 5 mg tablet take 1 tablet by oral route 3 times every day 09/25 completed Prescrib ed Elsewher e: Yes Loca tion: [facility] odify By: rogelio Cardozote r DateTime : 08/26/20 12 02:15:00 PM Not Available Not Available Not Available Mycamine 50 mg intraveno us solution infuse by intraven ous route every day over 08/26 completed Prescrib ed Elsewher e: Yes [facility] odify By: tgingric h Juliane ter DateTime : 08/26/20 12 02:15:00 PM Not Available Not Available Not Available spironola ctone 04/30 completed Not Available Not Available Not Available Acid Administrative Resident 04/30 completed Not Available Not Available Not Available Sudogest 12-hour 120 mg tablet,ex tended release TAKE 1 TABLET BY MOUTH EVERY 12 HOURS NEEDED FOR NASAL CONGESTI ON active Not Available Not Available No t Available B-12 Plus 5,000 mcg-100 mcg sublingua l tablet 11/26 completed Prescrib ed Elsewher e: Yes Loca tion: [facility] odify By: rogelio Unger r DateTime : 05/25/20 13 05:00:00 PM Not Available Not Available Not Available Savella 100 mg tablet take 1 tablet (100MG) by oral route 2 times every day 02/19 completed Prescrib ed Elsewher e: No Locat ion: [facility] odify By: jeferson Sullivan ncounter DateTime : 11/19/19 12 02:30:00 PM Not Available Not Available Not Available Savella 50 mg tablet TAKE 1 TABLET BY MOUTH TWICE DAILY active Not Available Not Available No t Available Savella 04/30 completed Not Available Not Available Not Available 10 mg-[address] by Topical route every USE ASS NEEDED WITH INTERCOU RSE 02/03 completed Prescrib ed Elsewher e: Yes Loca tion: [facility] odify By: lizzy Sauceda er DateTime : 04/09/20 12 03:00:00 PM Not Available Not Available Not Available fiber 2 gram chewable tablet 03/16 completed Prescrib ed Elsewher e: Yes Loca tion: [facility] odify By: tom Sullivan ncounter DateTime : 11/19/19 12 02:30:00 PM Not Available Not Available Not Available Zyrtec 10 mg capsule 02/03 completed Prescrib ed Elsewher e: Yes Loca tion: [facility] odify By: lizyz Sauceda er DateTime : 05/26/20 14 11:00:00 AM Not Available Not Available Not Available Kishore-Citra te 250 mg-2.5 mcg (100 unit) tablet 11/19 completed Prescrib ed Elsewher e: Yes Loca tion: [facility] odify By: [email or web address] Sullivan ncofahad DateTime : 03/30/20 18 04:45:00 PM Not Available Not Available Not Available Viibryd 10 mg tablet 12/07 completed Not Available Not Available Not Available Viibryd 20 mg tablet TAKE 1 TABLET BY MOUTH DAILY WITH FOOD 12/07 completed Not Available Not Available Not Available SYSTEMS ARCHITECTURE ANALYST-PNV-DH A 28 mg iron-1 mg-200 mg capsule take 1 capsule by oral route every day 08/14 completed Prescrib ed Elsewher e: No Locat ion: [facility] odify By: symone z Encoun ter DateTime : 01/24/20 15 09:19:55 AM Not Available Not Available Not Available Breo Ellipta 100 mcg-25 mcg/dose powder for inhalatio n 04/30 completed Not Available Not Available Not Available Viibryd 10 mg (7)-20 mg (23) tablets in a dose pack TAKE PER PACKAGE DIRECTIO NS 04/30 completed Not Available Not Available Not Available Breo Ellipta 200 mcg-25 mcg/dose powder for inhalatio n INHALE 1 PUFF BY MOUTH EVERY 24 HOURS. RINSE MOUTH AFTER USE 12/07 completed Not Available Not Available Not Available Fora B90-U87-C 10-D20 strips-la ncets 30 gauge combo pack checking bs QID fasting and hour after breakfas t, lunch & dinner 04/16 completed Prescrib ed Elsewher e: No Locat ion: [facility] odify By: symone z Encoun ter DateTime : 01/23/20 18 09:03:24 AM Not Available Not Available Not Available Paxlovid 300 mg (150 mg x 2)-100 mg tablets in a dose pack TK 2 NIRMATRE LVIR TS AND 1 RITONAVI R T TOGETHER PO BID FOR 5 DAYS BID FOR 5 DAYS 06/20 completed Not Available Not Available Not Available Vitals Date Recorded Body height Body mass index (BMI) Body weight Systolic blood pressure Diastolic blood pressure Provider Name and Address Organization Details Last Updated DateTime 12/03/2023 162.56 cm 47.7 kg/m2 814976.6 8 g 131 mm[Hg] 84 mm[Hg] Dorys [facility] 4 16:41:51 Date Recorded Body height Body mass index (BMI) Body weight Provider Name and Address Organization Details Last Updated DateTime 12/04/2023 162.56 cm 47.2 kg/m2 464315.62 g [facility] 12/04/2023 16:04:48 Date Recorded Systolic blood pressure Diastolic blood pressure Provider Name and Address Organization Details Last Updated DateTime 12/04/2023 128 mm[Hg] 100 mm[Hg] Gabi Mauricio [facility] 12/04/2023 16:13:19 Date Recorded Body height Provider Name an d Address Organization Details Last Updated DateTime 12/05/2023 162.56 cm Ledy [facility] 12/05/2023 13:47:00 Date Recorded Body height Body mass index (BMI) Body weight Systolic blood pressure Diastolic blood pressure Provider Name and Address Organization Details Last Updated DateTime 12/08/2023 162.56 cm 47 kg/m2 425192.3 1 g 131 mm[Hg] 85 mm[Hg] Gabi [facility] 4 17:18:57 Date Recorded Body height Body mass index (BMI) Body weight Systolic blood pressure Diastolic blood pressure Provider Name and Address Organization Details Last Updated DateTime 12/19/2023 162.56 cm 48.1 kg/m2 972765.8 6 g 133 mm[Hg] 84 mm[Hg] Dorys [facility] 12:40:07 Social History Question Answer Notes LastModified by Organizat ion Details LastModified Time Tobacco Smoking Status Never [facility]oker [email or web address] 04/19/2022 16:08:04 Do You Have An Advance Directive? No [email or web address] Information not available 04/30/2021 What Is Your Level Of Alcohol Consumption? Occasional Information not available 04/30/2021 How Many Years Have You Consumed Alcohol? 20 [email or web address] Information not available 04/30/2021 Are You Blind Or Do You Have Difficulty Seeing? No Information not available 04/30/2021 What Is Your Level Of Caffeine Consumption? Moderate [email or web address] Information not available 04/30/2021 How Much Tobacco Do You Chew? None Information not available 04/30/2021 In The 14 Days Before Symptom Onset, Have You Had Close Contact With A Laboratory-confir med COVID-19 While That Case Was Ill? No [email or web address] Information not available 04/30/2021 In The 14 Days Before Symptom Onset, Have You Had Close Contact With A Person Who Is Under Investigation For COVID-19 While That Person Was Ill? No [email or web address] Information not available 04/30/2021 Have You Been To An Area Known To Be High Risk For COVID-19? No [email or web address] Information not available 04/30/2021 Are You Deaf Or Do You Have Serious Difficulty Hearing? No Information not available 04/30/2021 What Type Of Diet Are You Following? REGULAR Information not available 04/30/2021 What Is The Highest Grade Or Level Of School You Have Completed Or The Highest Degree You Have Received? 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 No Information not available 04/30/2021 Do You Use Protection During Sex? No [email or web address] Information not available 04/30/2021 Do You Use Your Seat Belt Or Car Seat Routinely? Yes [email or web address] Information not available 04/30/2021 Do You Have Smoke And Carbon Monoxide Detectors In Your Home? Yes Information not available 04/30/2021 At What Age Did You Start Smoking Tobacco? 16 [email or web address] Information not available 04/30/2021 How Much Tobacco Do You Smoke? No [email or web address] Information not available 04/30/2021 Do You Feel Stressed (tense, Restless, Nervous, Or Anxious, Or Unable To Sleep At Night)? [id number] Information not available 02/01/2022 Do You Use Any Illicit Or Recreational Drugs? No [email or web address] Information not available 04/30/2021 Do You Use Sunscreen Routinely? Yes Information not available 04/30/2021 How Many Years Have You Smoked Tobacco? 10 Information not available 04/30/2021 Have You Used IV Drugs? No [email or web address] Information not available 04/30/2021 Sex: Unknown Functional Status Question Answer Note LastModified by Organizat ion Details LastModified Time Do you have difficulty walking or climbing stairs? No [email or web address] Information not available 12/08/2023 Are you able to walk? YESWOREST [email or web address] Information not available 04/30/2021 Are you able to care for yourself? Yes Information not available 12/08/2023 Do you have difficulty dressing or bathing? No [email or web address] Information not available 12/08/2023 What is your exercise level? Occasional [email or web address] Information not available 04/30/2021 Mental Status None recorded. Family History Relationship Description Onset Age of this Age Resolved Age Notes LastModified by Organization Details LastModified Time Paternal Grandmother Family history of breast cancer [email or web address] Not available 2023 12:36:17 Paternal Grandmother Malignant tumor of lung [email or web address] Not available 2020 16:47:00 Paternal Grandmother Malignant tumor of lung [email or web address] Not available 2023 12:36:17 Mother Cyst of ovary [email or web address] Not available 2023 12:36:17 Mother Disorder of thyroid gland [email or web address] Not available 2020 16:47:00 Mother Disorder of thyroid gland [email or web address] Not available 2023 12:36:17 Paternal Uncle Myocardial infarction [email or web address] Not available 08/03 16:47:00 Paternal Uncle Myocardial infarction [email or web address] Not available 12/18 12:36:17 Medical History Condition Response Allergies (Food, seasonal, environmental ) N Other Y Breast Cancer N Drug/Latex Allergies/Reactions Y Blood Transfusion N Dermatologic Disorders N Lung Disease N Defects or Inherited Disease N Breast Problem Y Gestational Diabetes N Hematologic disorders N Anesthesia Complications N History of STI Y Deep Vein Thrombosis N Polycystic ovary syndrome Y Anxiety Disorder Y Autoimmune disease N Arthritis N Infertility N Polyps N Acid Reflux (GERD) Y History of abnormal pap Y Cancer N Stroke N Varicosities N Neurologic/Epilepsy Y Endometriosis N High Cholesterol N Headaches Y Fibromyalgia Y Kidney Disease N Heart Problems N Kidney or Bladder Problems N Thyroid Problems N GI Problems Y Eating Disorder N Anemia N Art (IVF or FET) N Psychiatric Illness Y Ovarian Cancer N Diabetes N Pulmonary (TB, Asthma) N Hepatitis/Liver Disease N No Past Medical History N Eczema N Urinary Tract Infection N Abuse/Domestic Violence N Asthma N Trauma/Violence N Depression/ depression Y Heart Disease N Pre-Eclampsia Y Hypertension Y Osteoporosis N Thrombophilias N Gynecological History Statement/Question Response Date of Last Mammogram 11/08/2020 Date of LMP 12/02/2023 N Was last menstrual period normal N STIs/STDs Y 11/08/2020 Date of Last Colonoscopy 11/24/2009 Desired Control Method Hysterectom y Abnormal Pap Yes On BCP's at Conception? N HPV Vaccine N Colposcopy 06/10/2013 Duration of Flow (days) 7 Current Control Method Partner Vas ectomy Age at First Child 31 Are cycles usually normal N Frequency of Cycle (Q days) 28 Sexually Active? Y Menses Monthly N Date of DEXA bone scan Age of first menstrual cycle 9 Date of Last Pap Smear 04/19/2022 Sexual Problems? 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 Acute vaginitis 03829578 N76.0 Pain of breast 29322563 N64.4 screening for malformation 555766304 Z36.3 [id number] [facility] [address],[place] [address] 05/10/2021 16:47:06 05/11/2021 11:20:47 Abnormal uterine bleeding [id number] 9100 N93.9 [id number] Benedict Rick MD [place] [address],[place] [address] 05/14/2021 13:40:15 05/14/2021 14:58:55 Menorrhagia 276348621 N92.0 Abnormal u terine bleeding [id number] 9100 N93.9 Cyst of ovary 08641873 N 83.209 [id number] [place] Jesse [place] [address] [address],[place] [address] 07/09/2021 09:14:36 07/09/2021 10:18:55 Abnormal uterine bleeding [id number] 9100 N93.9 N83.292 [id number] Benedict Rick MD [place] [facility] [address],[place] [address] 08/03/2021 16:23:33 08/04/2021 11:43:29 Cyst of ovary [id number] N83.209 [id number] [facility] [address],[place] [address] 02/01/2022 16:12:58 02/01/2022 17:03:53 Irregular periods [id number] N92.6 [id number] [facility] [address],[place] [address] 02/07/2022 17:25:22 02/08/2022 15:12:07 Irregular periods 03019046 N92.6 [id number] Benedict Rick MD [place] [address],[place] [address] 03/22/2022 16:05:40 03/22/2022 17:24:19 Dysmenorrhea [id number] N94.6 Menorrhagia 804460073 N9 2.0 Cyst of ovary 19308574 N 83.209 [id number] Benedict Rick MD [place] [address],[place] [address] 04/11/2022 17:27:12 04/12/2022 15:23:40 Screening procedure [id number] Z13.9 Abnormal u terine bleeding [id number] 9100 N93.9 N83.292 [id number] Savannah Downing [facility] [address],[place] [address] 04/19/2022 16:07:08 04/22/2022 16:26:47 Gynecologic examination 28233027 Z11.51 Z11.3 Z11.8 [id number] Savannah Downing [facility] [address],[place] [address] 06/20/2023 13:53:11 06/23/2023 15:20:32 Gynecologic examination [id number] Z11.51 Z11.3 Z11.8 Menstrual period late 84 494773 N92.6 [id number] Benedict Rick MD [place] [facility] [address],[place] [address] 12/03/2023 16:31:11 12/04/2023 05:23:04 Menorrhagia 682375837 N92.0 [id number] Savannah Downing [facility] [address],[place] [address] 12/04/2023 15:58:31 12/05/2023 08:25:09 Pain in pelvis 11296377 R10.2 [id number] Benedict Rick MD [place] [facility] [address],[place] [address] 12/08/2023 16:58:09 12/09/2023 07:01:49 Pain in pelvis 43958475 R10.2 [id number] MD Oneil Gallagher [address],[place] [address] 12/19/2023 12:35:47 12/19/2023 13:03:52 Pain in pelvis 80298638 R10.2 Health Concerns Section Related Observation LastModified by Organization Detai LastModified Time None Recorded Concern Status LastModified by Organization Details LastModified Time None Recorded Advance Directives Directive N: Payers Encounter Date Sequence Insurance Name Policy Number Policy Islas Covered Member ID Islas Member ID Guarantor Name 12/03/2023 1 [facility] [id number] Araceli Cedeno [id number] Araceli Cedeno 12/04/2023 1 [facility] [id number] Araceli Cedeno [id number] Araceli Cedeno 12/08/2023 1 [facility] [id number] Araceli Cedeno [id number] Araceli Cedeno 12/19/2023 1 [facility] [id number] Araceli Cedeno [id number] Araceli Cedeno Notes Date Note Type Note Provider Name and Address Organization Details Recorded Time 12/03/2023 text/html 38-year-old jocelyn gaines with severe menorrhagia. We had previously agreed to perform hysterectomy. She decided to wait. Her problem has persisted. She has pain and terrible menorrhagia. She has accidents. She is blood on her bedding and clothing. Affects her quality of life. She has missed work due to her bleeding and her pain. She is limited in her treatment options due to her weight. She would like definitive surgical treatment. We will proceed with total laparoscopic hysterectomy and bilateral salpingo-oophorect tyrone. She understands the risks , benefits and alternatives to taking out the ovaries or leaving them in.n 40 minutes [id number]. More than 50% was counseling. We made a decision to perform surgery. Benedict Rick MD [address], [place], [address], [facility] 12/03/2023 19:00:53 12/04/2023 text/html Araceli is a 38yo here today with chronic pelvic pain and severe dysmenorrhea with onset of her menses. She has consulted with Dr. Rick and is to be scheduled for a hysterectomy soon; but she is on her cycle now and barely able to function/walk.Doub led over in pain.Feeling nauseated.Uncertai n of what she can do; Tylenol/OTC Ibuprofen is not helping. Neg pain of abd/flankNeg urinary sx'sNeg GI sx'sNeg N/V/F/C/DNeg Vag d/c, odor, irritation, itching Savannah Friederich, [facility] [address], [place], [address], [facility] 12/11/2023 12:24:15 12/08/2023 text/html this patient is a 38-year-old female who presents for pelvic pain. She feels like her bladder has pinching. She has had blood in her urine. Microscopic blood. Though it has been culture negative previously. We intend to culture today. She will also be treated for urinary tract infection. We reviewed her ultrasound and her medical history. We talked about her pain. We talked about her surgical plan. She has a plan for hysterectomy here in the very near future. We agreed to observe her pain, controlled with tramadol, and to see how the pain was affected by the hysterectomy. It may be related to that. She has fibromyalgia. We spent 20 minutes [id number]. More than 50% was counseling. Benedict Rick MD [address], [place], [address], [facility] 12/08/2023 18:11:25 12/19/2023 text/html 38-year-old fema le with severe pelvic pain. We have agreed to perform total laparoscopic hysterectomy bilateral salpingo-oophorect tyrone. The patient understands the procedure. The procedure was described to the patient in great detail. the patient also understands the risks. The risks were also explained in detail. She understands that injuries May occur during surgery. She understands these injuries can result in hospitalization, more surgery, and severe illness. She understands there is risk of hemorrhage and infection. Benedict Rick MD [address], [place], [address], [facility] 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 07/11/20 20 1 CLOSED Fetus Data First Name Last Name Admitted to NICU Weight (g) Sex Living Outcome Pediatric Complications Fetus ID Race Codes Race Delivery Type 3089.86 8704 M Full Term 5313 Primary Curtis Calculation CURTIS Calculation Method Initial Curtis Date Initial Exam Date Initial Exam Provider Initial Ultrasound Date Last Menstrual Period Date Ultra Sound Weeks Gestation Conception by IVF Embryo Age at Transfer Date of Transfer 0 Eighteen To Twenty Week Curtis Update Ultra Sound Date Fundal Height At Umbil Quickening Date Ultra Sound Latest Weeks Gestation Final Curtis Confirmed By Final Curtis Confirmed Date Final Curtis Date Ultra Sound Latest Days Gestation 0 0 Menstrual History Last Menstrual Date Menses Monthly On Bcp Conception Prior Menses Frequency Hcg Plus Date Menarche Onset Age Delivery Information Delivery Date Delivery Type Labor Anesthesia Weeks Gestation Incision Type Labor Labor Length Hrs Delivered By Post Complications Tubal Sterilization Discharge Date Comments 8 38 preeclam p adia CHTN Discharge Information Feeding Method Contraceptive Method Maternal HG B and HCT Levels Ob Episode Information Episode Created Date Number of Fetuses Patient Bloodtype Patient rh Status Prepregnancy Weight lbs Domestic Partner Domestic Partner Phone Father Name 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 07/11/20 20 1 CLOSED Fetus Data First Name Last Name Admitted to NICU Weight (g) Sex Living Outcome Pediatric Complications Fetus ID Race Codes Race Delivery Type 3373.36 [id number] F Full Term 5314 Vaginal Delivery Curtis Calculation CURTIS Calculation Method Initial Curtis Date Initial Exam Date Initial Exam Provider Initial Ultrasound Date Last Menstrual Period Date Ultra Sound Weeks Gestation Conception by IVF Embryo Age at Transfer Date of Transfer 0 Eighteen To Twenty Week Curtis Update Ultra Sound Date Fundal Height At Umbil Quickening Date Ultra Sound Latest Weeks Gestation Final Curtis Confirmed By Final Curtis Confirmed Date Final Curtis Date Ultra Sound Latest Days Gestation 0 0 Menstrual History Last Menstrual Date Menses Monthly On Bcp Conception Prior Menses Frequency Hcg Plus Date Menarche Onset Age Delivery Information Delivery Date Delivery Type Labor Anesthesia Weeks Gestation Incision Type Labor Labor Length Hrs Delivered By Post Complications Tubal Sterilization Discharge Date Comments 5 37.5 preeclam p adia HTN Discharge Information Feeding Method Contraceptive Method Maternal HG B and HCT Levels
--- OUTSIDE RECORDS SUMMARY | 2024-09-16 07:04 | XMS_ITS | Clinical Summary ---
Author Organization [facility] [address] Address [address] [place] [address] Care Team Providers Care Corporate Associate Attorney Name Role Phone Deedee Long MD Primary Care Provider + Allergies Active Allergy Reactions Criticality Noted Date [...] Morbid obesity with BMI of 45.0-49.9, adult (CMS /[facility]) 12/30/2017 Lipid screening 12/30/2017 QT prolongation 12/30/2017 Hypertension 2015 Encounters Date Type Department Care Team Description 08/17/2024 2:45 PM DARK[employer] WORKER Office Visit [facility] Cardiology at [address] [place] [address] Amol Martinez MD Palpitations (Primary Dx); Frequent PVCs from Last 3 Months Surgical History Surgery Date Site/Laterality Comments CHOLECYSTECTOMY DILATION AND CURETTAGE OF UTERUS WISDOM TOOTH EXTRACTION UPPER GASTROINTESTINAL ENDOSCOPY BREAST SURGERY SECTION BREAST BIOPSY 01/05/2021 Right HYSTERECTOMY 12/24/23 Medical History Medical History Date Comments Hypertension Cardiac rhythm disturbance Overweight Sinusitis Allergic rhinitis Acid indigestion Anxiety Depression Bladder infection GERD (gastroesophageal reflux disease) Migraines Sleep apnea Family History Medical History Relation Name Comments Arthritis Father Lj Karmen Depression Father Ljgavin Peraza Diabetes Father Lj Peraza Drug abuse Father Lj Peraza Heart disease Father Lj Peraza Hypertension Father Lj Peraza Mental illness Father Lj Karmen Cancer Maternal Grandfather Yan Yamilakacsi Clotting disorder Maternal Grandfather Yan Yamilakac si Heart attack Maternal Grandfather Yan Yamilakacsi Hypertension Maternal Grandfather Yan Yamilakacsi Anemia Maternal Grandmother Floresita Yamilakacsi Diabetes Maternal Grandmother Floresita Szakacsi Obesity Maternal Grandmother Floresita Loboakacsi Vision loss Maternal Grandmother Floresita Loboakacsi Arthritis Mother Dinora Peraza Hypertension Mother Dinora Peraza Obesity Mother Dinora Peraza Cancer Paternal Grandmother Hanna Hare Chino Drug abuse Sister 3 Yanira Peraza Mental illness Sister 3 Yanira Peraza Relation Name Status Comments Father Lj Karmen Alive Maternal Grandfather Yan Yamilakacsi Maternal Grandmother Floresita Yamilakacsi Mother Dinora Peraza Alive Paternal Grandmother Hanna Magana Sister 1 Alive Sister 2 Alive Sister 3 Yanira Peraza Social History Tobacco Use Types Packs/Day Years Used Date Smoking Tobacco: Former Cigarettes 0.5 5 0 09/29/2000 - 09/29/2005 Smokeless Tobacco: Never Alcohol Use Standard Drinks/Week Comments No 0 (1 standard drink = 0.6 oz pur e alcohol) Comments Unknown Sex and Gender Information Value Date Recorded Sex Assigned at Not on file 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:55 AM [employer] WORKER Gender Identity Not on file Sexual Orientation Not on file Obstetrics History Last Filed Vital Signs Vital Sign Reading Time Taken Comments Blood Pressure 134/90 08/17/2024 2:34 PM [employer] WORKER Pulse 103 08/17/2024 2:34 PM [employer] WORKER Temperature - - Respiratory Rate - - Oxygen Saturation 97% 08/17/2024 2:34 PM [employer] WORKER Inhaled Oxygen Concentration - - Weight 124.3 kg (274 lb) 08/17/2024 2:34 PM D[employer]ROOM WORKER Height 162.6 cm (5' 4 ) 08/17/2024 2:34 PM [employer] WORKER Body Mass Index 47.03 08/17/2024 2:34 PM [employer]RO[employer] WORKER Plan of Treatment Health Maintenance Due Date Last Done Comments Breast Cancer Screening-Mammogram 1984 Depression Screening 1984 Hepatitis C Screening 1984 Varicella Vaccines (1 of 2 - 13+ 2-dose series) 1997 Hepatitis B Screening 2002 Regular Well Visit/Exam 18-64 2002 Influenza Vaccine (#1) 2024 07/03/2015 DTaP/Tdap/Td Vaccine (3 - Td or Tdap) 01/16/2028 01/15/2018, 07/14/2015 HPV Vaccines Aged Out No longer eligi ble based on patient's age to complete this topic Pneumococcal vaccine <65 Aged Out No longer eligible based on patient's age to complete this topic Insurance [facility] CHO[facility] PLUS [facility] PLUS Care Teams Corporate Associate Attorney Relationship Specialty Start Date End Date Deedee Long MD PCP - General Family Medicine 10/07/22
--- OUTSIDE RECORDS SUMMARY | 2024-09-16 07:04 | XMS_ITS | Encounter Summary ---
Author Organization [facility] Healthcare Address [address] [place] [address] Care Team Providers Care Sexton Helper Name Role Phone Deedee Long MD Primary Care Provider + Reason for Visit * Reason Comments Annual Exam Encounter Details Date Type Department Care Team (Late st Contact Info) Description 03/02/2024 11:30 AM CDT Office Visit [facility] Medical Group Cardiology [address] [place] [id number] Chrissy Arango NP [address] [place] [address] Palpitations; Lipid screening Social History Tobacco Use Types Packs/Day Years Used Date Smoking Tobacco: Former Cigarettes 0.5 5 0 09/29/2000 - 09/29/2005 Smokeless Tobacco: Never Alcohol Use Standard Drinks/Week Comments No 0 (1 standard drink = 0.6 oz pur e alcohol) Comments Unknown Sex and Gender Information Value Date Recorded Sex Assigned at Not on file 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:55 AM [employer]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 Gender Identity Not on file Sexual Orientation Not on file documented as of this encounter Last Filed Vital Signs Vital Sign Reading Time Taken Comments Blood Pressure 140/100 03/02/2024 11:49 AM CDT Pulse 100 03/02/2024 11:49 AM CDT Temperature - - Respiratory Rate - - Oxygen Saturation 97% 03/02/2024 11:49 AM CDT Inhaled Oxygen Concentration - - Weight 123.8 kg (273 lb) 03/02/2024 11:49 AM CDT Height 162.6 cm (5' 4 ) 03/02/2024 11:49 AM CDT Body Mass Index 46.86 03/02/2024 11:49 AM CDT documented in this encounter Ordered Prescriptions Prescription Sig Dispense Quantity Refills Last Filled Start Date End Date metoprolol XL (TOPROL-XL) 50 mg extended release tabletIndications:P alpitations Take 1 tablet (50 mg total) by mouth daily Take with the 100 mg tablet 90 tablet 3 03/02/2024 metoprolol XL (TOPROL-XL) 100 mg 24 hr tabletIndications:P alpitations Take 1 tablet (100 mg total) by mouth daily Take with the 50 mg tablet 90 tablet 3 03/02/2024 documented in this encounter Progress Notes * Chrissy Arango, ANGELA - 03/02/2024 11:30 AM CDT Images from the original note were not included. [facility] Medical [facility] Cardiology [address] [place] [address] Date of Visit: 03/02/2024 Patient ID: Araceli Cedeno 1985 Chief Complaint Patient presents with Annual Exam Araceli Cedeno is a 38 y.o. female who is a former patient of Dr. Olvera with a history of PVCs, hypertension, KENZIE, morbid obesity, returning to the office overdue for follow up. History of Present Illness: Araceli Cedeno is a 38 y.o. female with a PMHx of anxiety/depression, fibromyalgia, obesity, andHTN,current seen in very kind referral by Dr. Valente for further evaluation and management for palpitations, SOB, and lightheadeness. Initial visit 12/30/17: States 10 years ago had palps told it was anxiety that began after her grandmother but now current palps are different in that she is now experiencing more SOB, lightheadedness, and sharp CP. Now she is 26 weeks . Appetite down, unable to take vitamins. This past week feeling much more lightheaded, tired this past Fri night. Described CP previouslymore widespread but now noted after skipped beat which is sharp in center of chest and very brief, no radiation. Lightheadedness at varying times with position change and sometimes with palps. Notes changed antidepressant and cut back on caffeine which has made some improvement. She has been able to keep meds down. No other issues during this but BP had been creeping up but a little better of late. Has been on Labetolol for years due to HTN which predated her first . Had pre-eclampsia with first . Holter monitor in November revealed <17,000 PVC's, elevated average HR of 102 bpm (74-164 bpm range). Occ V bigeminy but no NSVT. Sxs corresponded with ST and PVC's. She is unaware of being told about PVC's in past and in fact that is why they blamed her sxs on anxiety/panic attacks. No h/o syncope at any time. HAs noted more lightheadedness with an improvement in her BP of late SBP 112 range. 02/09/18 Feeling well except URI sxs of late, allergies. States Labetolol has helped a lot and was feeling better and energy level improved. NOt feeling dizzy, no falls. Recently dx with gestational DM. Taken off BUspar due to QTc prolongation which improved in repeat check and otherwise doing well.Due to date end of February with planned induction. 05/25/18 Feeling ok, occ palps but no where as freq as before. NOt sleeping much due to baby with silent reflux. BP controlled unless forgets Labetolol but palps controlled, BP up to 150's if misses adose. No falls. Vincent Sertraline, EKG in office QTc interval stable. 02/05/19 CAT visit: Here for routine follow-up. Has a multitude of constitutional complaints including exhaustion, nausea, increased GERD, pain in her stomach, legs feeling heavy, sinus congestion, rash. She thinks her palpitations have been about the same lately, she feels them more when she is sleep deprived. Her complaint of chest pain is unchanged. She was recently diagnosed with mild sleep apnea on a sleep study and is about to start using a CPAP machine. 03/04/19 CAT visit: went to the ER 02/15/19 for an intense headache, later followed by dizziness and chest pain. She labs, which included a D-dimer, troponin and TSH were unremarkable. Outpatient follow-up was advised. Today she reports, since the last visit she has generally been having more chest pain, palpitations, shortness of breath, lightheadedness and headaches. She thinks her increased symptoms are primarily due to more anxiety related to having a new boss at work. She has been using a CPAP machine now for the last 3 weeks and wears it 5-6 hours per night (getting a total of about 7 hours sleep per night). She has gained weight and admits to ???stress eating.?? 03/16/19 Echo: Normal LV size and systolic function, mild concentric LVH, grade 1 diastolic dysfunction, EF 71%, mild MR, peak RVSP 37 mmHg and mild TR, slight improvement in pulmonary pressure compared to previous echo, rhythm normal sinus with PVCs. 07/01/19 CAT visit: She had to reschedule her last visit with Dr. Olvera because she when out of town for work. She has been very busy on a project and this has been stressful. She went to the ER yesterday because she was having muscle spasms in her head and upper extremities and then the spread toher chest and were intense. She also had a 1-2 hour period of time where her thoughts were foggy, speech was slow, vision was a little blurry. This was resolving by the time she went to the ER. Cardiac workup in the ER was unremarkable and the chest pain was thought to be muscular. She had an old prescription for non cyclobenzaprine at home, and she took 1 before bed and she has not had any further chest pain today. She has been noticing that she has some shortness of breath during the day whenshe is working. She has been compliant with her CPAP machine about 6 hours per night. 07/23/10 HAving more frequent anxiety/stress related to work, working a lot. Having a lot more CP deeper across the chest, occurs randomly and at rest, can last up to 2 hours. Has occurred 2-3 x pastcouple of months. More SOB during the day, has URI sxs currently. Uses CPAP which helps. PCP thinkssxs are anxiety related. Notes periods where she has slurred speech, can't get words out then completely resolves. Considered silent migraines, h/o migraines she states. But having more MEYER's of late.Has cut out soda/caffeine, losing weight. Taking CBD oil which she states helps calm her down and reduce palps. Palps still occurring more frequently and associated CP as above. Has pain in her legs wears compression stockings which helps. 11/01/19 Feeling ok, better as she changed jobs a little less stress. Still with palps almost daily but less severe, mainly light fluttering in evening when she goes to relax. Still having some CP but quite mild and much less often 3x/week, more of a discomfort lasting a few minutes nonexertional. Still dealing with fibromyalgia. Holter 07/28/19 48 Hour >18,000 PVC's. Wearing CPAP. No longer . 03/10/20 This was a telemedicine visit -Feeling well, a little rough changing from Labetolol to Toprol XL 50mg but now doing well. Less palpitations more so only if no sleep or very stressed, much less than w/ Labetolol and feel fine. HAsnew job, stress at work and stress at home. Feels ok for now but fibromyalgia sxs confounds how shefeels anyway. No real heart racing or tachycardia like before. Denies significant issues with dizziness other than past 2 days but has been outside more and allergies an issue. 09/24/21 HAd ear infection off CPAP as a result. Had L lower leg pain then pain in L neck/shoulder shooting down arm at time constant dull pain wonders if it is muscular. Icy hot helps except dull pain not worse or better with position changes now 2-3 days. Though she slept on it wrong.Thinks may be related to fibromyalgia, having Migraines daily. Notes Excedrin not helping more nagging not really painful generally. Ear infection was on the R. Aleve did not help either. Some palps this past week not using CPAP she attributes otherwise under control. 11/23/21 CAT visit- she had her COVID booster last month and since that time she has had increased palpitations consistent with her PVCs. This past week in particular she had increased palpitations, fatigue, weight gain, DARLING and chest pain. Sometimes the chest pain feels superficial and other times it feels deeper in the chest. It does seem to get better after she uses her inhaler to treat her asthma. She has had a work related stress lately and also had migraines lately. Blood pressure has beenhigher this week 133/94, 141/91 and a higher reading earlier today after a bad work meeting 160/112. On the morning of 11/19/21 she felt exhausted and had trouble formulating sentences, had some vision changes, so she went to the ER. Her BP was 179/111, 156/103, ECG was unremarkable, CT of the head unremarkable. The neurological symptoms resolved and she ended up with a migraine the following night. 10/07/22 Palps more of an issue with an illness recently got over gastroenteritis. Had swollen LN axillary working with [facility]. Vincent meds no sig changes. Vincent Metoprolol 150mg daily. No change in edema no new limitations. 03/02/2024 office visit with [employer]: She returns overdue for routine follow-up. She ran out of metoprolol 3 days ago. She had a hysterectomy earlier this year for a benign tumor and had some postop complications with bleeding. She tends to have more palpitations when she goes through an anxiety provoking experience like this. She continues to have problems with abdominal pain and is having follow-up with her sand digger and a urologist. Her usual blood pressure is systolic 130s, diastolic 80s. Records that I personally reviewed on the day of this visit include: (the interpretation is outlined in the HPI above) 10/07/[address] Olvera. I have also reviewed: allergies, current medications, past family history, past medical history, past social history, past surgical history and problem list Medical History: Past Medical History: Diagnosis Date Acid indigestion Allergic rhinitis Anxiety Bladder infection Cardiac rhythm disturbance Depression GERD (gastroesophageal reflux disease) Hypertension Migraines Overweight Sinusitis Sleep apnea Past Surgical History: Procedure Laterality Date BREAST BIOPSY Right 01/05/2021 BREAST SURGERY SECTION CHOLECYSTECTOMY DILATION AND CURETTAGE OF UTERUS HYSTERECTOMY 12/24/23 UPPER GASTROINTESTINAL ENDOSCOPY WISDOM TOOTH EXTRACTION Social History Tobacco Use Smoking status: Never Smoker Smokeless tobacco: Never Used Substance Use Topics Alcohol use: No Drug use: Never Family History Problem Relation Age of Onset Arthritis Mother Hypertension Mother Obesity Mother Arthritis Father Depression Father Diabetes Father Drug abuse Father Heart disease Father Hypertension Father Mental illness Father Anemia Maternal Grandmother Diabetes Maternal Grandmother Vision loss Maternal Grandmother Obesity Maternal Grandmother Cancer Paternal Grandmother Cancer Maternal Grandfather Heart attack Maternal Grandfather Hypertension Maternal Grandfather Clotting disorder Maternal Grandfather Drug abuse Sister Mental illness Sister Review of Systems Constitutional: Negative for malaise/fatigue, weight gain and weight loss. Cardiovascular: Positive for palpitations. Negative for chest pain, dyspnea on exertion, leg swelling, near-syncope, orthopnea, paroxysmal nocturnal dyspnea and syncope. Respiratory: Negative for cough, shortness of breath and sleep disturbances due to breathing. Hematologic/Lymphatic: Negative for bleeding problem. Does not bruise/bleed easily. Gastrointestinal: Positive for abdominal pain. Vital Signs: BP 140/100 (BP Location: Left arm, Patient Position: Sitting) Pulse 100 Ht 162.6 cm (5' 4 ) Wt 123.8 kg (273 lb) SpO2 97% BMI 46.86 kg/m?? Physical Exam Constitutional: General: She is not in acute distress. Appearance: She is well-developed. She is morbidly obese. HENT: Head: Normocephalic and atraumatic. Eyes: General: No scleral icterus. Conjunctiva/sclera: Conjunctivae normal. Neck: Vascular: No JVD. Trachea: No tracheal deviation. Cardiovascular: Rate and Rhythm: Regular rhythm. Tachycardia present. Heart sounds: Normal heart sounds. No murmur heard. Pulmonary: Effort: Pulmonary effort is normal. No respiratory distress. Breath sounds: Normal breath sounds. Skin: General: Skin is warm and dry. Neurological: Mental Status: She is alert and oriented to person, place, and time. Psychiatric: Mood and Affect: Mood normal. Behavior: Behavior normal. Allergies Allergen Reactions Nirmatrelvir-Ritonavir Chest tightness, Dizziness and Headache Fluconazole Anxiety Latex Itching Promethazine Other (See comments) and Anxiety Panic attack Current Outpatient Medications: busPIRone (BUSPAR) 15 mg tablet, TAKE 1 AND 1/2 TABLETS BY MOUTH EVERY MORNING AND 2 TABLETS BY MOUTH EVERY EVENING, Disp: , Rfl: calcium citrate-vitamin D3 500 mg calcium -400 unit tablet,chewable, Take by mouth daily., Disp: , Rfl: cetirizine (ZyrTEC) 10 mg tablet, Take 1 tablet (10 mg total) by mouth daily, Disp: , Rfl: cholecalciferol (VITAMIN D-3) 2,000 unit capsule, Take 1 capsule (2,000 Units total) by mouth daily, Disp: , Rfl: clobetasoL (TEMOVATE) 0.05 % external solution, APPLY TOPICALLY TO THE AFFECTED AREA DAILY, Disp: ,Rfl: estradioL (ESTRACE) 1 mg tablet, , Disp: , Rfl: lisinopriL (PRINIVIL,ZESTRIL) 10 mg tablet, Take 1 tablet (10 mg total) by mouth daily, Disp: 7 tablet, Rfl: 0 magnesium oxide 500 mg capsule, Take by mouth daily., Disp: , Rfl: metFORMIN XR (GLUCOPHAGE XR) 500 mg 24 hr tablet, Take 2 tablets (1,000 mg total) by mouth 2 (two) times a day, Disp: , Rfl: methocarbamoL (ROBAXIN) 750 mg tablet, TAKE 1 TABLET BY MOUTH THREE TIMES DAILY NEEDED FOR MUSCLE PAIN, Disp: , Rfl: mirtazapine (REMERON) 15 mg tablet, Take 1 tablet (15 mg total) by mouth nightly at bedtime, Disp: , Rfl: multivitamin tablet,chewable, Take by mouth, Disp: , Rfl: ondansetron ODT (ZOFRAN-ODT) 4 mg disintegrating tablet, DISSOLVE 1 TABLET ON THE TONGUE EVERY 8 HOURS, Disp: , Rfl: oxyCODONE-acetaminophen (PERCOCET) 5-325 mg per tablet, TAKE ONE TABLET BY MOUTH EVERY 8 TO 12 HOURS NEEDED FOR PAIN, Disp: , Rfl: pantoprazole DR (PROTONIX) 40 mg EC tablet, , Disp: , Rfl: pyridoxine, vitamin B6, 200 mg tablet extended release, Take 300 mg by mouth Take 1 tab po in the morning and 0.5 tab po in the evening, Disp: , Rfl: SAVELLA 50 mg tablet, Take 1 tablet (50 mg total) by mouth 2 (two) times a day, Disp: , Rfl: 0 traMADoL (ULTRAM) 50 mg tablet, Take 1 tablet (50 mg total) by mouth every 6 (six) hours, Disp: , Rfl: triamterene-hydroCHLOROthiazide 37.5-25 mg per tablet, Take 1 tablet/capsule by mouth every morning, Disp: , Rfl: metoprolol XL (TOPROL-XL) 100 mg 24 hr tablet, Take 1 tablet (100 mg total) by mouth daily Take with the 50 mg tablet, Disp: 90 tablet, Rfl: 3 metoprolol XL (TOPROL-XL) 50 mg extended release tablet, Take 1 tablet (50 mg total) by mouth dailyTake with the 100 mg tablet, Disp: 90 tablet, Rfl: 3 No results found for: POTASSIUM , BUNSER , CREATININE , CHOL , TRIG , LDL , LDLCALC , HDL No results found for: WBC , HGB , HCT , MCV , PLT Assessment: Diagnoses and all orders for this visit: Palpitations - metoprolol XL (TOPROL-XL) 100 mg 24 hr tablet; Take 1 tablet (100 mg total) by mouth daily Take with the 50 mg tablet - metoprolol XL (TOPROL-XL) 50 mg extended release tablet; Take 1 tablet (50 mg total) by mouth daily Take with the 100 mg tablet Lipid screening - POCT lipid panel Plan/Recommendations: She has a history of PVCs. Holter monitor was repeated early last year and was unremarkable. She tends to have increased palpitations when she goes through physical or emotional stress. Continue metoprolol succinate 150 mg daily. She is going to transition her ongoing care from Dr. Olvera to Dr. Martinez with follow-up scheduled in June of this year. I reminded her to reach out to me in the interim if palpitations do notbecome better controlled as she recovers from the hysterectomy. 03/02/2024 LEIDA Bradford- Nurse Practitioner with [facility] Cardiology This note is dictated and transcribed using [employer] Direct Software. Mobility Engineer variancesmay occur. Despite proofreading, typographical errors may occur. documented in this encounter Plan of Treatment Not on file documented as of this encounter Procedures Procedure Name Priority Date/Time Associated Diagnosis Comments POCT LIPID PANEL Routine 03/02/2024 11:5 5 AM CDT Lipid screening documented in this encounter Results * POCT lipid panel (03/02/2024 11:55 AM CDT) Cholesterol, POC 182 mg/dL HDL, POC 36 mg/dL Triglycerides, POC 343 mg/dL LDL Cholesterol POC 77 mg/dL Chol/HDL Ratio, POC 2.1 Non-HDL Cholesterol, POC 146 mg/dL Cholesterol Total, POC 182 mg/dL Capillary blood 03/02/2024 1 1:55 AM CDT us Chrissy Arango [employer] POINT OF CARE TEST ORDERA BLES Final Result documented in this encounter Visit Diagnoses Diagnosis Palpitations Lipid screening Screening for lipoid disorders documented in this encounter Discontinued Medications Medication Sig Discontinue Reason Start Date End Da te metoprolol XL (TOPROL-XL) 100 mg 24 hr tabletIndications:Palpit ations TAKE 1 TABLET BY MOUTH EVERY DAY Reorder 02/17/2024 03/02/2024 metoprolol XL (TOPROL-XL) 50 mg extended release tablet Take 1 tablet (50 mg total) by mouth daily SHORT SUPPLY TO GET TO DR APPT Reorder 02/17/2024 03/02/2024 documented as of this encounter Historical Medications * This list may reflect changes made after this encounter. traMADoL (ULTRAM) 50 mg tablet Take 1 tablet (50 mg total) by mouth every 6 (six) hours 12/08/2023 oxyCODONE-acetaminop hen (PERCOCET) 5-325 mg per tablet TAKE ONE TABLET BY MOUTH EVERY 8 TO 12 HOURS NEEDED FOR PAIN 02/24/2024 ondansetron ODT (ZOFRAN-ODT) 4 mg disintegrating tablet DISSOLVE 1 TABLET ON THE TONGUE EVERY 8 HOURS 12/02/2023 mirtazapine (REMERON) 15 mg tablet Take 1 tablet (15 mg total) by mouth nightly at bedtime 02/07/2024 methocarbamoL (ROBAXIN) 750 mg tablet TAKE 1 TABLET BY MOUTH THREE TIMES DAILY NEEDED FOR MUSCLE PAIN 01/09/2024 metFORMIN XR (GLUCOPHAGE XR) 500 mg 24 hr tablet Take 2 tablets (1,000 mg total) by mouth 2 (two) times a day 01/13/2024 estradioL (ESTRACE) 1 mg tablet 02/29/2024 clobetasoL (TEMOVATE) 0.05 % external solution APPLY TOPICALLY TO THE AFFECTED AREA DAILY 01/28/2024 busPIRone (BUSPAR) 15 mg tablet TAKE 1 AND 1/2 TABLETS BY MOUTH EVERY MORNING AND 2 TABLETS BY MOUTH EVERY EVENING 02/15/2024 added in this encounter Care Teams Sexton Helper Relationship Specialty Start Date End Date Deedee Long MD PCP - General Family Medicine 10/07/22 documented as of this encounter
--- OUTSIDE RECORDS SUMMARY | 2024-09-16 07:04 | XMS_ITS | Encounter Summary ---
Author Organization [facility] Healthcare Address [address] [place] [address] Care Team Providers Care Spar Machine Operator Helper Name Role Phone Deedee Long MD Primary Care Provider + Reason for Visit * Reason Comments Follow-up 5 mo follow up on pa lps, PVC, HTN, PHTN, KENZIE Encounter Details Date Type Department Care Team (Late st Contact Info) Description 08/17/2024 2:45 PM SAXOPHONE TEACHER Office Visit [facility] Cardiology at [address] [place] [address] Amol Martinez MD [address] [address] Palpitations (Primary Dx); Frequent PVCs Social History Tobacco Use Types Packs/Day Years Used Date Smoking Tobacco: Former Cigarettes 0.5 5 0 09/29/2000 - 09/29/2005 Smokeless Tobacco: Never Alcohol Use Standard Drinks/Week Comments No 0 (1 standard drink = 0.6 oz pur e alcohol) Comments Unknown Sex and Gender Information Value Date Recorded Sex Assigned at Not on file 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:55 AM SAXOPHONE TEACHER Gender Identity Not on file Sexual Orientation Not on file documented as of this encounter Last Filed Vital Signs Vital Sign Reading Time Taken Comments Blood Pressure 134/90 08/17/2024 2:34 PM SAXOPHONE TEACHER Pulse 103 08/17/2024 2:34 PM SAXOPHONE TEACHER Temperature - - Respiratory Rate - - Oxygen Saturation 97% 08/17/2024 2:34 PM SAXOPHONE TEACHER Inhaled Oxygen Concentration - - Weight 124.3 kg (274 lb) 08/17/2024 2:34 PM SAXOPHONE TEACHER Height 162.6 cm (5' 4 ) 08/17/2024 2:34 PM SAXOPHONE TEACHER Body Mass Index 47.03 08/17/2024 2:34 PM SAXOPHONE TEACHER documented in this encounter Progress Notes * Amol Martinez MD - 08/17/2024 2:45 PM CST [facility] FOLLOW UP 08/17/2024 Araceli Cedeno is a 39 y.o. female who presents for follow up of PVCs. This is a patient that has been referred to our office previously for evaluation of palpitations and PVCs. She has been seen in consultation by Dr. 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 Her comorbidities are hypertension morbid obesity with obstructive sleep apnea. The patient was treated with metoprolol with good success and improvement of her symptomatology. She had previous echocardiography that was favorable and Holter monitoring which showed evidence of PVCs. She did have sleep study done which demonstrated sleep apnea. She states that she has had a very difficult time accommodating to the sleep mask and is not using it reliably at this time. She has had a lot of other health problems including a very complicated hospital stay last year at [facility] [facility] with a hysterectomy that was done for treatment of dysfunctional uterine bleeding and fibroids unfortunately she had a severe hemorrhagic event and was resuscitated with packed red cell transfusion and was in the hospital for quite some time. She has no history of coronary disease valvular heart disease or of LV systolic dysfunction. She also reports aprevious history of fibromyalgia. She returns to the office today for scheduled follow-up this is my 1st visit with this lady following Dr. Olvera's departure from the practice. He takes a high dose of metoprolol at 150 mg daily forsuppression of her PVCs but on this dosage she seems to be doing well. Had a long discussion with her about the importance of attempting to treat sleep apnea effectively because of these arrhythmias and also the importance of making a significant attempt and weight loss since that is likely the core of most of these problems given her morbid obesity. REVIEW OF SYSTEMS General ROS: negative for - chills, fatigue, fever, malaise, night sweats, weight gain or weight loss Psychological ROS: negative for - anxiety, depression, memory difficulties or sleep disturbances Ophthalmic ROS: negative for - blurry vision, decreased vision, loss of vision or scotomata ENT ROS: negative for - epistaxis, headaches, hearing change, nasal congestion, nasal discharge, sore throat, vertigo or visual changes Hematological and Lymphatic ROS: negative for - bleeding problems, blood clots, bruising, fatigue or weight loss Endocrine ROS: negative for - hot flashes, palpitations, polydipsia/polyuria or unexpected weight changes Respiratory ROS: negative for - cough, hemoptysis, orthopnea, shortness of breath, tachypnea or wheezing Cardiovascular ROS: negative for - chest pain, dyspnea on exertion, edema, irregular heartbeat, loss of consciousness, murmur, orthopnea, palpitations, paroxysmal nocturnal dyspnea, rapid heart rate or shortness of breath Gastrointestinal ROS: negative for - abdominal pain, appetite loss, blood in stools, constipation, diarrhea, gas/bloating, heartburn, hematemesis, melena or nausea/vomiting Genito-Urinary ROS: negative for - dysuria, erectile dysfunction or hematuria Musculoskeletal ROS: negative for - joint pain, muscle pain or muscular weakness Dermatological ROS: negative for dry skin, eczema, pruritus and rash HOME MEDICATIONS Current Outpatient Medications: busPIRone (BUSPAR) 15 mg [...] 1 mg tablet, , Disp: , Rfl: fluticasone propionate (Flonase Allergy Relief) 50 mcg/actuation nasal spray, Administer 1 spray into each nostril daily, Disp: , Rfl: gabapentin (NEURONTIN) 300 mg capsule, Take 100 mg by mouth 3 (three) times a day, Disp: , Rfl: lisinopriL (PRINIVIL,ZESTRIL) 10 mg tablet, TAKE 1 TABLET(10 MG) BY MOUTH DAILY, Disp: 90 tablet, Rfl: 1 magnesium oxide 500 mg capsule, Take by mouth daily., Disp: , Rfl: metFORMIN XR (GLUCOPHAGE XR) 500 mg 24 hr tablet, Take 2 tablets (1,000 mg total) by mouth 2 (two) times a day, Disp: , Rfl: methocarbamoL (ROBAXIN) 750 mg tablet, TAKE 1 TABLET BY MOUTH THREE TIMES DAILY NEEDED FOR MUSCLE PAIN, Disp: , Rfl: metoprolol XL (TOPROL-XL) 100 mg 24 hr tablet, Take 1 tablet (100 mg total) by mouth daily Take with the 50 mg tablet, Disp: 90 tablet, Rfl: 3 metoprolol XL (TOPROL-XL) 50 mg extended release tablet, Take 1 tablet (50 mg total) by mouth dailyTake with the 100 mg tablet, Disp: 90 tablet, Rfl: 3 mirtazapine (REMERON) 15 mg tablet, Take 1 [...] by mouth every morning, Disp: , Rfl: LABS AND OTHER DIAGNOSTIC TESTS No results found for: CHOL No results found for: HDL No results found for: LDLCALC No results found for: TRIG No results found for: CHOLHDL No results found for: WBC , HGB , HCT , MCV , PLT No lab exists for component: LABALBU PHYSICAL EXAM Vitals BP 134/90 (BP Location: Left arm, Patient Position: Sitting) Pulse 103 Ht 162.6 cm (5' 4 ) Wt 124.3 kg (274 lb) SpO2 97% BMI 47.03 kg/m?? Physical Examination: General appearance - alert, pleasant morbidly obese lady and in no distress, oriented to person, place, and time and acyanotic, in no respiratory distress Mental status - affect appropriate to mood Eyes - extraocular eye movements intact, sclera anicteric, no pallor Ears - external earsappear normal, hearing grossly normal bilaterally Nose - normal and patent, no erythema or discharge Mouth - mucous membranes moist, pharynx appears normal, dental hygiene good and tongue normal Neck - supple, no significant neck masses, carotids upstroke normal bilaterally, no bruits, no JVD Chest - clear to auscultation, no wheezes, rales or rhonchi, symmetric air entry, no tachypnea, retractions or cyanosis Heart - normal rate, regular rhythm, normal S1, S2, no murmurs, rubs, clicks or gallops, no JVD Abdomen - soft, nontender, nondistended, no masses or organomegaly bowel sounds normal Neurological - alert, oriented, normal speech, no focal findings or movement disorder noted Musculoskeletal - no joint tenderness, deformity or swelling, no muscular tenderness noted Extremities - peripheral pulses normal, no pedal edema, no clubbing or cyanosis Skin - normal coloration and turgor, no rashes, no suspicious skin lesions noted ASSESSMENT Araceli was seen today for follow-up. Diagnoses and all orders for this visit: Palpitations Frequent PVCs PLAN/RECOMMENDATIONS Continue current dose of metoprolol succinate she is doing well despite the relatively high dose ofbeta-rob that she is taking for this. Encourage and recommend serious discussion regarding weight loss and options for more effective treatment of her sleep apnea as these are both likely directly correlated to these arrhythmias Follow-up 6 months or p.r.n. Amol Martinez MD PHONE TEACHER documented in this encounter Plan of Treatment Not on file documented as of this encounter Visit Diagnoses Diagnosis Palpitations- Primary Frequent PVCs documented in this encounter Historical Medications * This list may reflect changes made after this encounter. fluticasone propionate (Flonase Allergy Relief) 50 mcg/actuation nasal spray Administer 1 spray into each nostril daily 09/24/2020 gabapentin (NEURONTIN) 300 mg capsule Take 100 mg by mouth 3 (three) times a day 07/22/2024 added in this encounter Care Teams Spar Machine Operator Helper Relationship Specialty Start Date End Date Deedee Long MD PCP - General Family Medicine 10/07/22 documented as of this encounter
--- OUTSIDE RECORDS SUMMARY | 2024-09-16 07:05 | XMS_ITS | Encounter Summary ---
Author Organization [facility] Care Team Providers Care Enamel Machine Operator Name Role Phone Kevin Vega MD Primary Care Provider [phone] Encounter Details Date Type Department Care Team (Latest Contact Info) Description 11/01/2019 Travel Social History Tobacco Use Types Packs/Day Years Used Date Smoking Tobacco: Never Smokeless Tobacco: Never Alcohol Use Standard Drinks/Week Comments No 0 (1 standard drink = 0.6 oz pur e alcohol) Comments Unknown Sex and Gender Information Value Date Recorded Sex Assigned at Not on file 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:55 AM DAY LIGHT RELIEF OPERATOR Gender Identity Not on file Sexual Orientation Not on file documented as of this encounter Plan of Treatment Not on file documented as of this encounter Visit Diagnoses Not on filedocumented in this encounter Care Teams Enamel Machine Operator Relationship Specialty Start Date End Date Kevin Vega MD [address] [place] [address] PCP - General Family Medicine 12/30/17 10/06/22 documented as of this encounter
--- OUTSIDE RECORDS SUMMARY | 2024-09-16 07:05 | XMS_ITS | Encounter Summary ---
Author Organization [facility] Address [address] [place] [address] Care Team Providers Care News Anchor Name Role Phone Kevin Vega MD Primary Care Provider [phone] Reason for Visit * Reason Comments Follow-up overdue f/u. Left ar m pain PVC's Hypertension Sleep Apnea Encounter Details Date Type Department Care Team (Late st Contact Info) Description 09/24/2021 10:15 AM READING SPECIALIST Office Visit [facility] Cardiology [address] [place] [address] Isidoro Olvera MD [address] [facility] [address] [place] [address] HTN (hypertension), benign (Primary Dx); Neck pain on left side; Palpitations; Frequent PVCs; Pulmonary HTN (CMS/HCC) (HCC); Morbid obesity with BMI of 40.0-44.9, adult (HCC); KENZIE on CPAP; Morbid obesity with BMI of 45.0-49.9, adult (CMS/HCC) (HCC) Social History Tobacco Use Types Packs/Day Years Used Date Smoking Tobacco: Never Smokeless Tobacco: Never Alcohol Use Standard Drinks/Week Comments No 0 (1 standard drink = 0.6 oz pur e alcohol) Comments Unknown Sex and Gender Information Value Date Recorded Sex Assigned at Not on file 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:55 AM READING SPECIALIST Gender Identity Not on file Sexual Orientation Not on file documented as of this encounter Last Filed Vital Signs Vital Sign Reading Time Taken Comments Blood Pressure 122/74 09/24/2021 10:21 AM READING SPECIALIST Pulse 96 09/24/2021 10:21 AM READING SPECIALIST Temperature - - Respiratory Rate - - Oxygen Saturation 97% 09/24/2021 10: 21 AM READING SPECIALIST Inhaled Oxygen Concentration - - Weight 124.6 kg (274 lb 12.8 oz) 2020 10:21 AM READING SPECIALIST Height 162.6 cm (5' 4 ) 09/24/2021 10:2 1 AM READING SPECIALIST Body Mass Index 47.17 09/24/2021 10:21 AM READING SPECIALIST documented in this encounter Progress Notes * Isidoro Olvera MD - 09/24/2021 10:15 AM CST [facility] DATE OF VISIT: 09/24/2021 CHIEF COMPLAINT Chief Complaint Patient presents with ??? Follow-up overdue f/u. Left arm pain ??? PVC's ??? Hypertension ??? Sleep Apnea ASSESSMENT Diagnoses and all orders for this visit: HTN (hypertension), benign (Primary) Neck pain on left side Palpitations Frequent PVCs Pulmonary HTN (CMS/HCC) (HCC) Morbid obesity with BMI of 40.0-44.9, adult (HCC) KENZIE on CPAP Morbid obesity with BMI of 45.0-49.9, adult (CMS/HCC) (HCC) PLAN/RECOMMENDATIONS 1. Continue Toprol XL 100mg daily, helped PVC's a lot, symptomatic. Expect better suppression with adjustment. Monitor tolerance. More obvious off CPAP. 2. BP controlled, goal <140/90mmHg. Monitor BP on routine basis. Call with readings. Continue consistent cardiovascular exercise, weight loss, medication compliance, and low-sodium diet. -On Triamterene per PCP and Toprol XL 100mg daily. 3. L neck pain very likely musculoskeletal pain, noncardiac. Encouraged to contact PCP for further recommendations and management. She agrees. Possible fibromyalgia. 4. 2D echo 02/2019 personally reviewed EF normal, mild LVH, mild PHTN RVSP 37mmHg. 5. Lifestyle modification counseling performed. Weight loss, exercise, reduction in caloric intake. 6. Compliance with CPAP contract company re recalls. 7. Lipids personally reviewed 09/20/21 [id number], reasonably well controlled goal LDL<130. Continuelifestyle modification. -12 lead EKG today personally reviewed SR 80bpm DE 158msec QRS 96msec QTc 441msec Over 50% of this visit counseling PVC's, tachycardia, palpitations, HTN, lipids, medications, lifestyle modification. Follow up in the office in 1 year or sooner as needed. Thank you for allowing me the privilege of participating in the care this very pleasant patient. Please do not hesitate to contact me with any additional questions or concerns. HPI Araceli Cedeno is a 36 y.o. female with a PMHx of anxiety/depression, [...] . 03/10/20 This was a telemedicine visit ?? -Feeling well, a little rough changing from [...] using CPAP she attributes otherwise under control. MEDICAL HISTORY Past Medical History: Diagnosis Date ??? Acid indigestion ??? Allergic rhinitis ??? Anxiety ??? Bladder infection ??? Cardiac rhythm disturbance ??? Depression ??? Hypertension ??? Overweight ??? Sinusitis Social History Tobacco Use ??? Smoking status: Never Smoker ??? Smokeless tobacco: Never Used Substance Use Topics ??? Alcohol use: No ??? Drug use: Not on file Family History Problem Relation Age of Onset ??? No Known Problems Mother ??? No Known Problems Father No history of premature atherosclerosis and is otherwise not relevant. MEDICATIONS HOME MEDICATIONS : calcium citrate-vitamin D3 500 mg calcium -400 unit tablet,chewable cetirizine (ZyrTEC) 10 mg tablet cholecalciferol (VITAMIN D-3) 2,000 unit capsule magnesium oxide 500 mg capsule metoprolol XL (TOPROL-XL) 100 mg 24 hr tablet multivitamin tablet,chewable pyridoxine, vitamin B6, 200 mg tablet extended release SAVELLA 50 mg tablet ALPRAZolam (XANAX) 0.25 mg tablet loratadine (CLARITIN) 10 mg tablet sertraline (ZOLOFT) 50 mg tablet ALLERGIES Allergies Allergen Reactions ??? Promethazine Other (See comments) and Anxiety Panic attack REVIEW OF SYSTEMS Review of Systems Constitutional: Positive for weight loss. Negative for decreased appetite, diaphoresis, fever, malaise/fatigue and night sweats. HENT: Negative for hearing loss and nosebleeds. Eyes: Negative for blurred vision and pain. Cardiovascular: Positive for irregular heartbeat and palpitations. Negative for chest pain, claudication, dyspnea on exertion, leg swelling, near-syncope, orthopnea and syncope. Respiratory: Negative for cough, hemoptysis, shortness of breath, snoring and wheezing. Endocrine: Negative for cold intolerance and heat intolerance. Hematologic/Lymphatic: Negative for bleeding problem. Does not bruise/bleed easily. Skin: Negative for color change, itching, rash and suspicious lesions. Musculoskeletal: Positive for joint pain. Negative for falls, muscle weakness and myalgias. Gastrointestinal: Negative for abdominal pain, heartburn, hematemesis, melena and nausea. Genitourinary: Negative for dysuria, hematuria and nocturia. Neurological: Negative for excessive daytime sleepiness, dizziness, focal weakness, headaches, light-headedness, loss of balance and weakness. Psychiatric/Behavioral: Negative for altered mental status, depression and memory loss. The patientis not nervous/anxious. Allergic/Immunologic: Negative for environmental allergies. PHYSICAL EXAM Vitals BP 122/74 (BP Location: Right arm, Patient Position: Sitting) Pulse 96 Ht 162.6 cm (5' 4 ) Wt 124.6 kg (274 lb 12.8 oz) SpO2 97% BMI 47.17 kg/m?? Weight: 124.6 kg (274 lb 12.8 oz) Height: 162.6 cm (5' 4 ) Body mass index is 47.17 kg/m??. Physical Exam Vitals reviewed. Constitutional: General: She is not in acute distress. Appearance: She is well-developed. She is not diaphoretic. HENT: Head: Normocephalic and atraumatic. Right Ear: External ear normal. Left Ear: External ear normal. Nose: Nose normal. Mouth/Throat: Dentition: Normal dentition. Eyes: General: Lids are normal. No scleral icterus. Conjunctiva/sclera: Conjunctivae normal. Neck: Thyroid: No thyromegaly. Vascular: Normal carotid pulses. No carotid bruit, hepatojugular reflux or JVD. Trachea: No tracheal deviation. Cardiovascular: Rate and Rhythm: Regular rhythm. Tachycardia present. Frequent extrasystoles are present. Pulses: Normal pulses and intact distal pulses. Heart sounds: S1 normal and S2 normal. Heart sounds not distant. Murmur heard. Medium-pitched midsystolic murmur is present with a grade of 2/6 at the upper left sternal border. No friction rub. No gallop. No S3 or S4 sounds. Pulmonary: Effort: Pulmonary effort is normal. No respiratory distress. Breath sounds: Normal breath sounds. No wheezing or rales. Chest: Chest wall: No tenderness. Abdominal: General: Bowel sounds are normal. There is no distension. Palpations: Abdomen is soft. There is no mass. Tenderness: There is no abdominal tenderness. There is no guarding or rebound. Comments: obese Musculoskeletal: General: No tenderness or deformity. Normal range of motion. Cervical back: Normal range of motion and neck supple. Right lower leg: No edema. Left lower leg: No edema. Comments: Slightly more tight prominent L neck/upper shoulder mild diffuse tenderness to palpation no obvious injury or other deformity Lymphadenopathy: Cervical: No cervical adenopathy. Skin: General: Skin is warm and dry. Coloration: Skin is not pale. Findings: No ecchymosis, erythema, petechiae or rash. Nails: There is no clubbing. Neurological: General: No focal deficit present. Mental Status: She is alert and oriented to person, place, and time. Mental status is at baseline. Cranial Nerves: No cranial nerve deficit. Motor: No abnormal muscle tone. Coordination: Coordination normal. Psychiatric: Mood and Affect: Mood normal. Speech: Speech normal. Behavior: Behavior normal. Behavior is cooperative. Thought Content: Thought content normal. Judgment: Judgment normal. LABS AND OTHER DIAGNOSTIC TESTS Orders Only on 09/20/2021 Component Date Value Ref Range Status ??? SCRIBED Cholesterol, Total 03/30/2021 186 100 - 199 Final ??? SCRIBED HDL 03/30/2021 41 40 - 60 Final ??? SCRIBED LDL 03/30/2021 116* 0 - 99 Final ??? SCRIBED Triglycerides 03/30/2021 170* 0 - 149 Final Results for orders placed or performed in visit on 09/20/21 Lipid panel Result Value Ref Range SCRIBED Cholesterol, Total 186 100 - 199 SCRIBED HDL 41 40 - 60 SCRIBED LDL 116 (A) 0 - 99 SCRIBED Triglycerides 170 (A) 0 - 149 03/16/19 2D Echo: Conclusions: Normal left ventricular systolic function. No focal wall motion abnormalities. Normal left ventricular size. Mild concentric left ventricular hypertrophy. Impaired diastolic relaxation Grade I. Ejection fraction is measured at 71 %. There is mild enlargement of left atrium. Normal appearance of the mitral valve. Mild mitral valve regurgitation. Normal appearance of the tricuspid valve. Mild pulmonary hypertension based on right ventricular systolic pressure. Estimated peak RVSP is 37 mmHg. Mild tricuspid regurgitation. Compared with prior echo performed on 01/16/18, no significant change although pulmonary pressures have slightly improved. Normal sinus rhythm. PVCs. Personally reviewed EKG, Echocardiogram, stress test, and bloodwork/lipids. Kain Olvera MD, FACC ING SPECIALIST documented in this encounter Miscellaneous Notes * Addendum Note - Sky Craig MA - 09/24/2021 10:15 AM CSTAddended by: SKY CRAIG on: 09/26/2021 04:32 PM Modules accepted: Orders ING SPECIALIST documented in this encounter Plan of Treatment Not on file documented as of this encounter Procedures Procedure Name Priority Date/Time Associated Diagnosis Comments ECG 12-LEAD Routine 09/24/2021 Frequent PVCs Palpitations documented in this encounter Results * ECG 12 lead (09/24/2021) Isidoro Olvera MD ECG ORDERABLES Final Re sult documented in this encounter Visit Diagnoses Diagnosis HTN (hypertension), benign- Primary Essential hypertension, benign Neck pain on left side Palpitations Frequent PVCs Pulmonary HTN (HCC) Morbid obesity with BMI of 40.0-44.9, adult (HCC) KENZIE on CPAP Morbid obesity with BMI of 45.0-49.9, adult (HCC) documented in this encounter Discontinued Medications Medication Sig Discontinue Reason Start Date End Da te loratadine (CLARITIN) 10 mg tablet Take 10 mg by mouth daily. Therapy completed 09/24/2021 ALPRAZolam (XANAX) 0.25 mg tablet Take 0.25 mg by mouth 3 (three) times a day Therapy completed 06/30/2019 09/24/2021 sertraline (ZOLOFT) 50 mg tablet Take 50 mg by mouth daily Therapy completed 09/24/2021 documented as of this encounter Care Teams News Anchor Relationship Specialty Start Date End Date Kevin Vega MD [address] [place] [address] PCP - General Family Medicine 12/30/17 10/06/22 documented as of this encounter
--- OUTSIDE RECORDS SUMMARY | 2024-09-16 07:05 | XMS_ITS | Encounter Summary ---
Author Organization [facility] Address [address] [place] [address] Care Team Providers Care Machine Ceramic Coater Name Role Phone Kevin Vega MD Primary Care Provider [phone] Reason for Visit * Reason Comments Follow-up 4 mo follow up on HT N, PVC's, KENZIE, palps Encounter Details Date Type Department Care Team (Late st Contact Info) Description 03/10/2020 3:30 PM CDT Telemedicine [facility] Cardiology [address] [place] [address] Isidoro Olvera MD [address] [facility] [address] [place] [address] HTN (hypertension), benign (Primary Dx); Palpitations; Frequent PVCs; Pulmonary HTN (CMS/HCC); KENZIE on CPAP; Morbid obesity with BMI of 40.0-44.9, adult (CMS/HCC) Social History Tobacco Use Types Packs/Day Years Used Date Smoking Tobacco: Never Smokeless Tobacco: Never Alcohol Use Standard Drinks/Week Comments No 0 (1 standard drink = 0.6 oz pur e alcohol) Comments Unknown Sex and Gender Information Value Date Recorded Sex Assigned at Not on file 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:55 AM DIRECTOR APPOINTMENT Gender Identity Not on file Sexual Orientation Not on file documented as of this encounter Last Filed Vital Signs Vital Sign Reading Time Taken Comments Blood Pressure - - Pulse - - Temperature - - Respiratory Rate - - Oxygen Saturation - - Inhaled Oxygen Concentration - - Weight 117.9 kg (260 lb) 03/10/2020 4:10 PM CDT Height 162.6 cm (5' 4 ) 03/10/2020 4:10 PM CDT Body Mass Index 44.63 03/10/2020 4:10 PM CDT documented in this encounter Progress Notes * Isidoro Olvera MD - 03/10/2020 3:30 PM CDT Images from the original note were not included. [facility] DATE OF VISIT: 03/10/2020 CHIEF COMPLAINT Chief Complaint Patient presents with ??? Follow-up 4 mo follow up on HTN, PVC's, KENZIE, palps ASSESSMENT Diagnoses and all orders for this visit: HTN (hypertension), benign (Primary) Palpitations Frequent PVCs Pulmonary HTN (CMS/HCC) KENZIE on CPAP Morbid obesity with BMI of 40.0-44.9, adult (CMS/HCC) PLAN/RECOMMENDATIONS 1. ContinueToprol XL 50mg daily, working well, minimal palps, no tachycardia., symptomatic. Plan torepeat Holter in future to document suppression. 2. Monitor BP on routine basis. Call with readings. Continue consistent cardiovascular exercise, weight loss, medication compliance, and low-sodium diet. 3. CP atypical, most likely noncardiac, nonexertional. 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 2D echo 02/2019 personally reviewed EF normal, mild LVH, mild PHTN RVSP 37mmHg. 5. Lifestyle modification counseling performed. Weight loss, exercise, reduction in caloric intake. 6. Compliance with CPAP Over 50% of this visit counseling PVC's, tachycardia, palpitations, HTN, lipids, medications, lifestyle modification. Follow up in the office in 6 months or sooner as needed. Thank you for allowing me the privilege of participating in the care this very pleasant patient. Please do not hesitate to contact me with any additional questions or concerns. KJ Araceli Cedeno is a 34 y.o. female with a PMHx of anxiety/depression, [...] . 03/10/20 This was a telemedicine visit with Araceli Cedeno alone which took place via Real-time video connection ([employer], [email or web address] or similar). During the visit, I was located in the office and the patient was located at home in the [facility]. The patient visit started at 1628 and ended at 1643. Total encounter time was 18 minutes, which includes time spent today on pre charting, the patient encounter, and post charting. The patient: has been informed that the visit may not be secure and acknowledged the information. The option of participating in a telephone or video visit during the [facility] emergencywas explained to them. After being given an opportunity to ask questions about and discuss this type of visit, they verbally consented to proceeding with the telephone/video visit and understand thatthis service replaces an office visit and they may be billed and/or responsible for any applicable copayments. Isidoro Olvera MD -Feeling well, a little rough changing from [...] been outside more and allergies an issue. MEDICAL HISTORY Past Medical History: Diagnosis Date [...] Problems Mother ??? No Known Problems Father MEDICATIONS HOME MEDICATIONS : calcium citrate-vitamin D3 500 mg calcium -400 unit tablet,chewable cetirizine (ZyrTEC) 10 mg tablet cholecalciferol (VITAMIN D-3) 2,000 unit capsule magnesium oxide 500 mg capsule metoprolol XL (TOPROL-XL) 50 mg 24 hr tablet multivitamin tablet,chewable pyridoxine, vitamin B6, 200 mg tablet extended release SAVELLA 50 mg tablet ALPRAZolam (XANAX) 0.25 mg tablet loratadine (CLARITIN) 10 mg tablet sertraline (ZOLOFT) 50 mg tablet ALLERGIES Allergies Allergen Reactions ??? Promethazine Other (See comments) and Anxiety Panic attack REVIEW OF SYSTEMS Review of Systems Constitution: Positive for weight loss. Negative for decreased appetite, diaphoresis, fever, malaise/fatigue and night sweats. HENT: Negative for hearing loss and nosebleeds. Eyes: Negative for blurred vision and pain. Cardiovascular: Positive for palpitations. Negative for chest pain, claudication, dyspnea on exertion, irregular heartbeat, leg swelling, near- syncope, orthopnea and syncope. Respiratory: Negative for cough, [...] Negative for environmental allergies. PHYSICAL EXAM Vitals Ht 162.6 cm (5' 4 ) Wt 117.9 kg (260 lb) BMI 44.63 kg/m?? Weight: 117.9 kg (260 lb) Height: 162.6 cm (5' 4 ) Body mass index is 44.63 kg/m??. Physical Exam Constitutional: She is oriented to person, place, and time. She appears well- developed and well-nourished. She is cooperative. No distress. HENT: Head: Normocephalic and atraumatic. Right Ear: External ear normal. Left Ear: External ear normal. Nose: Nose normal. Mouth/Throat: Oropharynx is clear and moist and mucous membranes are normal. Normal dentition. Eyes: Conjunctivae, EOM and lids are normal. No scleral icterus. Neck: Normal range of motion. Neck supple. Normal carotid pulses, no hepatojugular reflux and no JVD present. Carotid bruit is not present. No tracheal deviation present. No thyromegaly present. Cardiovascular: Regular rhythm, S1 normal, S2 normal, intact distal pulses and normal pulses. Frequent extrasystoles are present. Tachycardia present. Exam reveals no gallop, no S3, no S4, no distantheart sounds and no friction rub. Murmur heard. Medium-pitched midsystolic murmur is present with a grade of 2/6 at the upper left sternal border. Pulmonary/Chest: Effort normal and breath sounds normal. No respiratory distress. She has no wheezes. She has no rales. She exhibits no tenderness. Abdominal: Soft. Bowel sounds are normal. She exhibits no distension and no mass. There is no abdominal tenderness. There is no rebound and no guarding. Musculoskeletal: Normal range of motion. General: No tenderness, deformity or edema. Lymphadenopathy: She has no cervical adenopathy. Neurological: She is alert and oriented to person, place, and time. No cranial nerve deficit. She exhibits normal muscle tone. Coordination normal. Skin: Skin is warm and dry. No ecchymosis, no petechiae and no rash noted. She is not diaphoretic. No cyanosis or erythema. No pallor. Nails show no clubbing. Psychiatric: She has a normal mood and affect. Her speech is normal and behavior is normal. Judgment normal. LABS AND OTHER DIAGNOSTIC TESTS No visits with results within 3 Month(s) from this visit. Latest known visit with results is: Office Visit on 02/05/2019 Component Date Value Ref Range Status ??? Cholesterol, POC 02/12/2019 211 mg/dL Final ??? HDL, POC 02/12/2019 37 mg/dL Final ??? Triglycerides, POC 02/12/2019 274 mg/dL Final ??? LDL, Direct, POC 02/12/2019 119 mg/dL Final ??? Chol/HDL Ratio, POC 02/12/2019 5.7 Final ??? Non-HDL Cholesterol, POC 02/12/2019 174 mg/dL Final ??? Cholesterol Total, POC 02/12/2019 211 mg/dL Final Results for orders placed or performed in visit on 02/05/19 POCT lipid panel Result Value Ref Range Cholesterol, POC 211 mg/dL HDL, POC 37 mg/dL Triglycerides, POC 274 mg/dL LDL, Direct, POC 119 mg/dL Chol/HDL Ratio, POC 5.7 Non-HDL Cholesterol, POC 174 mg/dL Cholesterol Total, POC 211 mg/dL 03/16/19 2D Echo: Conclusions: Normal left ventricular [...] test, and bloodwork/lipids. Kain Olvera MD, FACC documented in this encounter Plan of Treatment Not on file documented as of this encounter Visit Diagnoses Diagnosis HTN (hypertension), benign- Primary Essential hypertension, benign Palpitations Frequent PVCs Pulmonary HTN (HCC) KENZIE on CPAP Morbid obesity with BMI of 40.0-44.9, adult (HCC) documented in this encounter Historical Medications * This list may reflect changes made after this encounter. cetirizine (ZyrTEC) 10 mg tablet Take 1 tablet (10 mg total) by mouth daily added in this encounter Care Teams Machine Ceramic Coater Relationship Specialty Start Date End Date Kevin Vega MD [address] [place] [address] PCP - General Family Medicine 12/30/17 10/06/22 documented as of this encounter
--- OUTSIDE RECORDS SUMMARY | 2024-09-16 07:05 | XMS_ITS | Encounter Summary ---
Author Organization [facility] Address [address] [place] [address] Care Team Providers Care Bi Tester Name Role Phone Deedee Long MD Primary Care Provider + Reason for Visit * Reason Comments Med Refill Encounter Details Date Type Department Care Team (Late st Contact Info) Description 02/14/2024 Telephone [facility] Cardiology [address] [place] [address] Isidoro Olvera MD [facility] [address] Med Refill Social History Tobacco Use Types Packs/Day Years Used Date Smoking Tobacco: Never Smokeless Tobacco: Never Alcohol Use Standard Drinks/Week Comments No 0 (1 standard drink = 0.6 oz pur e alcohol) Comments Unknown Sex and Gender Information Value Date Recorded Sex Assigned at Not on file 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:55 AM CENTRAL SUPPLY TECHNICIAN Gender Identity Not on file Sexual Orientation Not on file documented as of this encounter Miscellaneous Notes * Telephone Encounter - Ramy Fisher MA - 02/27/2024 4:48 PM CDT Pt has not been seen in a year and a half Dr Olvera is gone so pt needs to see [facility] if she wants meds refilled. MUST KEEP CURRENT APPT * Telephone Encounter - Etelvina Samano - 02/27/2024 1:38 PM CDT Pt requesting refill for metoprolol XL 100 mg, metoprolol XL 50 mg, and [facility] [place] Pt is [place] on [facility]31. Contact: * Telephone Encounter - Ramy Fisher MA - 02/17/2024 12:09 PM CDT Called pt and scheduled appt with [facility] next week to get meds refilled since she hasn't been seen in over 1 yr. Short supply script has been sent in to get pt to appt. * Telephone Encounter - Etelvina Samano - 02/17/2024 11:31 AM CDT Pt requesting refill for metoprolol XL 100 mg, metoprolol XL 50 mg, and [facility] [place] Pt is scheduled at first available appt with [facility] on 07/14 and she is completely put of her meds. Contact: documented in this encounter Plan of Treatment Not on file documented as of this encounter Visit Diagnoses Diagnosis Palpitations documented in this encounter Care Teams Bi Tester Relationship Specialty Start Date End Date Deedee Long MD PCP - General Family Medicine 10/07/22 documented as of this encounter
--- OUTSIDE RECORDS SUMMARY | 2024-09-16 07:05 | XMS_ITS | Encounter Summary ---
Author Organization [facility] Address [address] [place] [address] Care Team Providers Care Dairy Husbandry Teacher Name Role Phone Kevin Vega MD Primary Care Provider [phone] Reason for Visit * Reason Comments Follow-up 4 mo follow up on pa lps, HTN, PVC's, KENZIE Encounter Details Date Type Department Care Team (Late st Contact Info) Description 11/01/2019 3:30 PM LUNCHEONETTE MANAGER Office Visit [facility] Cardiology [address] [place] [address] Isidoro Olvera MD [address] [place] [address] Other chest pain (Primary Dx); HTN (hypertension), benign; Frequent PVCs; KENZIE on CPAP; Palpitations; Pulmonary HTN (CMS/HCC) Social History Tobacco Use Types Packs/Day Years Used Date Smoking Tobacco: Never Smokeless Tobacco: Never Alcohol Use Standard Drinks/Week Comments No 0 (1 standard drink = 0.6 oz pur e alcohol) Comments Unknown Sex and Gender Information Value Date Recorded Sex Assigned at Not on file 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:55 AM LUNCHEONETTE MANAGER Gender Identity Not on file Sexual Orientation Not on file documented as of this encounter Last Filed Vital Signs Vital Sign Reading Time Taken Comments Blood Pressure 108/76 11/01/2019 3:43 PM LUNCHEONETTE MANAGER Pulse 84 11/01/2019 3:43 PM LUNCHEONETTE MANAGER Temperature - - Respiratory Rate - - Oxygen Saturation 96% 11/01/2019 3:43 PM LUNCHEONETTE MANAGER Inhaled Oxygen Concentration - - Weight 119.7 kg (264 lb) 11/01/2019 3:43 PM LUNCHEONETTE MANAGER Height 162.6 cm (5' 4 ) 11/01/2019 3:43 PM LUNCHEONETTE MANAGER Body Mass Index 45.32 11/01/2019 3:43 PM LUNCHEONETTE MANAGER documented in this encounter Ordered Prescriptions Prescription Sig Dispense Quantity Refills Last Filled Start Date End Date metoprolol XL (TOPROL-XL) 50 mg 24 hr tablet Take 1 tablet (50 mg total) by mouth daily 30 tablet 11 11/01/2019 06/01/2020 documented in this encounter Progress Notes * Isidoro Olvera MD - 11/01/2019 3:30 PM CST [facility] DATE OF VISIT: 11/01/2019 CHIEF COMPLAINT Chief Complaint Patient presents with ??? Follow-up 4 mo follow up on palps, HTN, PVC's, KENZIE ASSESSMENT Diagnoses and all orders for this visit: Other chest pain (Primary) HTN (hypertension), benign Frequent PVCs KENZIE on CPAP Palpitations Pulmonary HTN (CMS/HCC) Other orders - metoprolol XL (TOPROL-XL) 50 mg 24 hr tablet; Take 1 tablet (50 mg total) by mouth daily PLAN/RECOMMENDATIONS 1. Change to Toprol XL 50mg daily. Stop Labetolol. PVC's remain quite frequent, symptomatic. Expectbetter suppression with adjustment. Monitor tolerance. May take half tablet (25mg) initially and observe tolerance for a few days then increase to 50mg daily. Monitor HR and BP, call with any concerns/sxs as counseled. 2. BP controlled on Labetolol. Monitor BP on routine basis. Call with readings. Continue consistentcardiovascular exercise, weight loss, medication compliance, and low-sodium [...] modification. Follow up in the office in 4 months or sooner as needed. Thank you for allowing me the privilege of participating in the care this very pleasant patient. Please do not hesitate to contact me with any additional questions or concerns. HPI Araceli Cedeno is a 34 y.o. female [...] >18,000 PVC's. Wearing CPAP. No longer . MEDICAL HISTORY Past Medical History: Diagnosis Date ??? Acid indigestion ??? Allergic rhinitis ??? Anxiety ??? Bladder infection ??? Cardiac rhythm disturbance ??? Depression ??? Hypertension ??? Overweight ??? Sinusitis Social History Tobacco Use ??? Smoking status: Never Smoker ??? Smokeless tobacco: Never Used Substance Use Topics ??? Alcohol use: No ??? Drug use: Not on file History reviewed. No pertinent family history. No history of premature atherosclerosis and is otherwise not relevant. MEDICATIONS HOME MEDICATIONS : ALPRAZolam (XANAX) 0.25 mg tablet calcium citrate-vitamin D3 500 mg calcium -400 unit tablet,chewable cholecalciferol (VITAMIN D-3) 2,000 unit capsule loratadine (CLARITIN) 10 mg tablet magnesium oxide 500 mg capsule multivitamin tablet,chewable pyridoxine, vitamin B6, 200 mg tablet extended release SAVELLA 50 mg tablet sertraline (ZOLOFT) 50 mg tablet labetalol (NORMODYNE,TRANDATE) 200 mg tablet metoprolol XL (TOPROL-XL) 50 mg 24 hr tablet ALLERGIES Allergies Allergen Reactions ??? Promethazine [...] for environmental allergies. PHYSICAL EXAM Vitals BP 108/76 (BP Location: Right arm, Patient Position: Sitting) Pulse 84 Ht 162.6 cm (5' 4 ) Wt 119.7 kg (264 lb) SpO2 96% BMI 45.32 kg/m?? Weight: 119.7 kg (264 lb) Height: 162.6 cm (5' 4 ) Body mass index is 45.32 kg/m??. Physical Exam Constitutional: She is oriented [...] distension and no mass. There is no tenderness. There is no rebound and no [...] stress test, and bloodwork/lipids. Kain Olvera MD, FAC HEONETTE MANAGER documented in this encounter Plan of Treatment Not on file documented as of this encounter Visit Diagnoses Diagnosis Other chest pain- Primary HTN (hypertension), benign Essential hypertension, benign Frequent PVCs KENZIE on CPAP Palpitations Pulmonary HTN (HCC) documented in this encounter Discontinued Medications Medication Sig Discontinue Reason Start Date End Da te labetalol (NORMODYNE,TRANDATE) 200 mg tablet TAKE 1 TABLET(200 MG) BY MOUTH TWICE DAILY 03/29/2019 11/01/2019 documented as of this encounter Care Teams Dairy Husbandry Teacher Relationship Specialty Start Date End Date Kevin Vega MD [address] [place] [address] PCP - General Family Medicine 12/30/17 10/06/22 documented as of this encounter
--- OUTSIDE RECORDS SUMMARY | 2024-09-16 07:05 | XMS_ITS | Encounter Summary ---
Author Organization [facility] Address [address] [place] [address] Care Team Providers Care Steel Pickler Name Role Phone Kevin Vega MD Primary Care Provider [phone] Encounter Details Date Type Department Care Team (Late st Contact Info) Description 05/31/2020 Telephone [facility] Cardiology [address] [place] [address] Isidoro Olvera MD [address] [facility] [address] [place] [address] Social History Tobacco Use Types Packs/Day Years Used Date Smoking Tobacco: Never Smokeless Tobacco: Never Alcohol Use Standard Drinks/Week Comments No 0 (1 standard drink = 0.6 oz pur e alcohol) Comments Unknown Sex and Gender Information Value Date Recorded Sex Assigned at Not on file 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:55 AM RESPIRATORY THERAPY DIRECTOR Gender Identity Not on file Sexual Orientation Not on file documented as of this encounter Ordered Prescriptions Prescription Sig Dispense Quantity Refills Last Filled Start Date End Date metoprolol XL (TOPROL-XL) 100 mg 24 hr tablet Take 1 tablet (100 mg total) by mouth daily 90 tablet 1 06/28/2020 1 metoprolol XL (TOPROL-XL) 50 mg extended release tablet Take 2 tablets (100 mg total) by mouth daily 60 tablet 2 06/01/2020 0 documented in this encounter Miscellaneous Notes * Addendum Note - Disha Garner MA - 06/28/2020 6:30 PM CDTAddended by: DISHA GARNER on: 06/28/2020 06:30 PM Modules accepted: Orders * Telephone Encounter - Disha Garner MA - 06/28/2020 6:28 PM CDT Refills approved and sent to pharmacy as requested. * Telephone Encounter - Roxy Carlos - 06/28/2020 3:32 PM CDT Patient/and or Pharmacy calling to request refills on the following medications: Metoprolol XL Pt is now taking 100 mg per day Pharmacy:[facility] * Telephone Encounter - Suyapa Naidu RN - 06/01/2020 10:54 AM CDT Spoke with the patient and reviewed Dr. Olvera's note. States she was instructed by PCP to office to f/u with our office for continued monitoring of edema and medication adjustment. She had a rough night last night from spironolactone side effects. She is going to contact Dr. Vega today and see if he will switch her to something else or just stop it. Patient will increase TOPROL XL to 100mg daily and call us in one week with update on HR/BP. If BP improved and tolerating well, will continue with increased dose and we can send in refill at that time. Patient verbalized understanindg. * Addendum Note - Suyapa Naidu RN - 06/01/2020 10:54 AM CDTAddended by: SUYAPA NAIDU on: 06/01/2020 10:54 AM Modules accepted: Orders * Telephone Encounter - Isidoro Olvera MD - 06/01/2020 9:15 AM CDT She needs to be in contact with PCP with regards to spironolactone as he initiate this medication and does not seem to be achieving the goal with exception of resolution of edema. And he did know what her heart rate has been doing but if she felt that much better increasing Toprol XL she may continue on that dose and observe heart rate blood pressure and call with any other concerns. Monitor blood pressure closely. Communicate with PCP in this regard as well. Need to be consistent and not goingback and forth between our office and bears with regards to the symptoms and medical management. * Telephone Encounter - Suyapa Naidu RN - 05/31/2020 3:39 PM CDT Spoke with the patient. She states she had a routine visit with her PCP about 2- 3 weeks ago and wasexperiencing swelling in her ankles, legs and hands at the time. She describes swelling as painful,but non-pitting. Her PCP, Dr. Vega, prescribed spironolactone 25mg daily, which has resolved the swelling. However, she experienced several side effects from the spironolactone including nausea and increased perspiration. Side effects improved some by taking it at night. Additionally, BP was high at her PCP appointment. Patient states PCP thought spironolactone would help with BP as well, but readings have remained high. During the day BP is around 155/90 and after medications BP is 140s/102. She has been taking TOPROL XL and spironolactone at the same time. She still feels fatigued and nauseated off and on, but doesn't know if this is r/t current menstruation orconsistently high BP. She did accidentally take two tabs of TOPROL XL one day and said she felt great and is thinking this dose may need adjusted. She would also like input on water pill, does she still need to take it? If so, is there an alternative she can try to reduce side effects. Advised will route to AD for review and comment. Please advise. * Telephone Encounter - AdkinsChika crowderina - 05/31/2020 2:21 PM CDT Pt called to report experiencing swelling going on 2-[address] Mcclain prescribed her to take spironolactone. Also pt report her bp is still high while taking the metoprol XL 50 mg 24 hr tab. Ptbp reading 10 minutes ago was 151/90. documented in this encounter Plan of Treatment Not on file documented as of this encounter Visit Diagnoses Not on filedocumented in this encounter Discontinued Medications Medication Sig Discontinue Reason Start Date End Da te metoprolol XL (TOPROL-XL) 50 mg 24 hr tablet Take 1 tablet (50 mg total) by mouth daily 11/01/2019 06/01/2020 metoprolol XL (TOPROL-XL) 50 mg extended release tablet Take 2 tablets (100 mg total) by mouth daily Dose adjustment 06/01/2020 06/28/2020 documented as of this encounter Care Teams Steel Pickler Relationship Specialty Start Date End Date Kevin Vega MD [address] [place] [address] PCP - General Family Medicine 12/30/17 10/06/22 documented as of this encounter
--- OUTSIDE RECORDS SUMMARY | 2024-09-16 07:05 | XMS_ITS | Encounter Summary ---
Author Organization [facility] Address [address] [place] [address] Care Team Providers Care Splicer Operator Name Role Phone Kevin Vega MD Primary Care Provider [phone] Encounter Details Date Type Department Care Team (Late st Contact Info) Description 05/20/2022 Telephone [facility] Cardiology [address] [place] [address] Isidoro Olvera MD [address] [facility] [address] [place] [address] Social History Tobacco Use Types Packs/Day Years Used Date Smoking Tobacco: Never Smokeless Tobacco: Never Alcohol Use Standard Drinks/Week Comments No 0 (1 standard drink = 0.6 oz pur e alcohol) Comments Unknown Sex and Gender Information Value Date Recorded Sex Assigned at Not on file 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:55 AM CAMP COOK Gender Identity Not on file Sexual Orientation Not on file documented as of this encounter Miscellaneous Notes * Telephone Encounter - Justine Prince RN - 05/20/2022 12:28 PM CDT Spoke with pt, pt states that she is currently at ER for evaluation. CK and AD aware. * Telephone Encounter - Etelvina Durham - 05/20/2022 10:08 AM CDT Pt states she tested positive for covid and Dr. Long prescribed Paxovid. Since starting paxovid, pt states her BP has been high, reports chest pain and PVC's. Requesting call back to discuss. Contact: documented in this encounter Plan of Treatment Not on file documented as of this encounter Visit Diagnoses Not on filedocumented in this encounter Care Teams Splicer Operator Relationship Specialty Start Date End Date Kevin Vega MD [address] [place] [address] PCP - General Family Medicine 12/30/17 10/06/22 documented as of this encounter
--- OUTSIDE RECORDS SUMMARY | 2024-09-16 07:05 | XMS_ITS | Encounter Summary ---
Author Organization [facility] Address [address] [place] [address] Care Team Providers Care Kiln Door Builder Name Role Phone Kevin Vega MD Primary Care Provider [phone] Encounter Details Date Type Department Care Team (Late st Contact Info) Description 05/03/2022 Telephone [facility] Cardiology [address] [place] [address] Isidoro Olvera MD [facility] [place] [address] Social History Tobacco Use Types Packs/Day Years Used Date Smoking Tobacco: Never Smokeless Tobacco: Never Alcohol Use Standard Drinks/Week Comments No 0 (1 standard drink = 0.6 oz pur e alcohol) Comments Unknown Sex and Gender Information Value Date Recorded Sex Assigned at Not on file 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 Voiced understanding * Telephone Encounter - Isidoro Olvera MD - 05/03/2022 2:09 PM CDT I am not familiar with Viibryd but what I can see there are no significant cardiac complications although can increase heart rate. Medical marijuana can increase overall cardiovascular risk and increase risk for arrhythmias and can be potentially problematic. * Telephone Encounter - Sofia Alba RN - 05/03/2022 2:03 PM CDT See below , please advise * Telephone Encounter - Susan Madrigal - 05/03/2022 1:56 PM CDT Pt called states she recently spoke with her PCP about her depression meds and heart rhythm asking if Vybriid and Buspar will cause issues with her heart rhythm? Also asking if medical marijuana is ok to have with her heart conditions.Please advise.Thank you Contact:[phone] documented in this encounter Plan of Treatment Not on file documented as of this encounter Visit Diagnoses Not on filedocumented in this encounter Care Teams Kiln Door Builder Relationship Specialty Start Date End Date Kevin Vega MD [address] [place] [address] PCP - General Family Medicine 12/30/17 10/06/22 documented as of this encounter
--- OUTSIDE RECORDS SUMMARY | 2024-09-16 07:05 | XMS_ITS | Encounter Summary ---
Author Organization [facility] Address [address] [place] [address] Care Team Providers Care Instructor Painting Name Role Phone Kevin Vega MD Primary Care Provider [phone] Encounter Details Date Type Department Care Team (Late st Contact Info) Description 12/24/2021 Telephone [facility] Cardiology [address] [place] [address] Isidoro Olvera MD [address] [facility] [address] [place] [address] Social History Tobacco Use Types Packs/Day Years Used Date Smoking Tobacco: Never Smokeless Tobacco: Never Alcohol Use Standard Drinks/Week Comments No 0 (1 standard drink = 0.6 oz pur e alcohol) Comments Unknown Sex and Gender Information Value Date Recorded Sex Assigned at Not on file 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 Pt verbalizes understanding. Prescription sent to pharmacy. * Telephone Encounter - Chrissy Arango NP - 12/24/2021 5:08 PM CDT I recommend keeping her on the metoprolol succinate 150 mg dose permanently. These blood pressure readings are still too high so I recommend starting another blood pressure medication: Start lisinopril 10 mg daily. Please make her aware there is a very small chance of angioedema with lisinopril, there is also a small chance of a side effect of dry cough. She will need to check a BMP 1-2 weeks after starting the lisinopril. Call us again after being on the lisinopril for 2weeks to give us more blood pressure readings. Thank you. * Telephone Encounter - Justine Prince RN - 12/24/2021 4:37 PM CDT Spoke with pt, pt states that she has been having elevated blood pressures. Pt does report that theincrease in the metoprolol has helped with her palpitations. Pt blood pressures have been taken at least 1 hour after bp medications per pt. She states she continues to take the metoprolol succinate 150mg daily. Pts home bp readings: 12/03 145/98 12/04 124/85 12/07 140/100 12/17 141/91 12/24 156/104 Pt states that she has had increased stress this week and last week. Pt states that she has been feeling fine. Will forward to CT. Please advise. * Telephone Encounter - Etelvina Durham - 12/24/2021 3:47 PM CDT Pt requesting call back to discuss BP and possible med increase. Contact: documented in this encounter Plan of Treatment Not on file documented as of this encounter Visit Diagnoses Not on filedocumented in this encounter Care Teams Instructor Painting Relationship Specialty Start Date End Date Kevin Vega MD [address] [place] [address] PCP - General Family Medicine 12/30/17 10/06/22 documented as of this encounter
--- OUTSIDE RECORDS SUMMARY | 2024-09-16 07:05 | XMS_ITS | Encounter Summary ---
Author Organization [facility] Address [address] [place] [address] Care Team Providers Care Mailing Specialist Name Role Phone Kevin Vega MD Primary Care Provider [phone] Encounter Details Date Type Department Care Team (Late st Contact Info) Description 03/10/2020 Telephone [facility] Cardiology [address] [place] [address] Isidoro Olvera MD [address] [facility] [address] [place] [address] Social History Tobacco Use Types Packs/Day Years Used Date Smoking Tobacco: Never Smokeless Tobacco: Never Alcohol Use Standard Drinks/Week Comments No 0 (1 standard drink = 0.6 oz pur e alcohol) Comments Unknown Sex and Gender Information Value Date Recorded Sex Assigned at Not on file 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 * Telephone Encounter - Roxy Carlos - 03/10/2020 3:44 PM CDT Pt has not received her video appt for today with Dr. Olvera at 3:30 documented in this encounter Plan of Treatment Not on file documented as of this encounter Visit Diagnoses Not on filedocumented in this encounter Care Teams Mailing Specialist Relationship Specialty Start Date End Date Kevin Vega MD [address] [place] [place] [address] PCP - General Family Medicine 12/30/17 10/06/22 documented as of this encounter
--- OUTSIDE RECORDS SUMMARY | 2024-09-16 07:05 | XMS_ITS | Encounter Summary ---
Author Organization [facility] Address [address] [place] [address] Care Team Providers Care Assault Amphibious Vehicle Officer Name Role Phone Kevin Vega MD Primary Care Provider [phone] Encounter Details Date Type Department Care Team (Late st Contact Info) Description 10/05/2021 Orders Only [facility] Cardiology [address] [place] [address] Provider, MD Frank [address] [place], [place] [id number] Social History Tobacco Use Types Packs/Day Years Used Date Smoking Tobacco: Never Smokeless Tobacco: Never Alcohol Use Standard Drinks/Week Comments No 0 (1 standard drink = 0.6 oz pur e alcohol) Comments Unknown Sex and Gender Information Value Date Recorded Sex Assigned at Not on file 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 Gender Identity Not on file Sexual Orientation Not on file documented as of this encounter Plan of Treatment Not on file documented as of this encounter Procedures Procedure Name Priority Date/Time Associated Diagnosis Comments SCAN - LABS Routine 03/30/2021 documented in this encounter Results * SCAN - LABS (03/30/2021) Historical Provider Final Res ult documented in this encounter Visit Diagnoses Not on filedocumented in this encounter Care Teams Assault Amphibious Vehicle Officer Relationship Specialty Start Date End Date Kevin Vega MD [address] [place] [place] [address] PCP - General Family Medicine 12/30/17 10/06/22 documented as of this encounter
--- OUTSIDE RECORDS SUMMARY | 2024-09-16 07:05 | XMS_ITS | Encounter Summary ---
Author Organization [facility] Address [address] [place] [address] Care Team Providers Care Hospitalist Medical Director Name Role Phone Deedee Long MD Primary Care Provider + Reason for Visit * Cardiology (Routine) - Closed Specialty Diagnoses / Procedures Referred By Contac t Referred To Contact Diagnoses Frequent PVCs Palpitations Procedures 48 HR Holter Monitor Isidoro Olvera MD Phone: tel: fax: [facility] Referral ID Status Reason Start Date Expiration Date Visits Re quested Visits Authorized [id number] Closed 10/07/2022 11/06/2023 1 1 Encounter Details Date Type Department Care Team (Late st Contact Info) Description 10/07/2022 3:00 PM BUSINESS CONTINUITY MANAGEMENT DIRECTOR Ancillary Procedure [facility] Medical [facility] Cardiology [address] [place] [address] Frequent PVCs; Palpitations Social History Tobacco Use Types Packs/Day Years Used Date Smoking Tobacco: Never Smokeless Tobacco: Never Alcohol Use Standard Drinks/Week Comments No 0 (1 standard drink = 0.6 oz pur e alcohol) Comments Unknown Sex and Gender Information Value Date Recorded Sex Assigned at Not on file 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:55 AM BUSINESS CONTINUITY MANAGEMENT DIRECTOR Gender Identity Not on file Sexual Orientation Not on file documented as of this encounter Plan of Treatment Not on file documented as of this encounter Procedures Procedure Name Priority Date/Time Associated Diagnosis Comments HOLTER MONITOR 48 HR Routine 10/07/2022 5:11 PM BUSINESS CONTINUITY MANAGEMENT DIRECTOR Frequent PVCs Palpitations documented in this encounter Results * 48 HR Holter Monitor (10/07/2022 5:11 PM BUSINESS CONTINUITY MANAGEMENT DIRECTOR) Anatomical Region Laterality Modality Other Narrative 10/14/2022 5:13 PM BUSINESS CONTINUITY MANAGEMENT DIRECTOR AMBULATORY TABLE MAKER REPORT Patient Name: Araceli Cedeno Date of : 1985 ?? Requesting Provider: ?? Isidoro Olvera MD Referring provider: ??Deedee Long MD Date of interpretation: 10/14/22 Type of monitor : ??24 hour Date of the study/Enrollment period: ??10/07/2022 Indication: ??Palpitations, PVCs Quality of the study: ??Good Interpretation: ??The patient was monitored for 24 hours. ??The underlying rhythm was sinus with an average heart rate of 84 beats per minute (range 64-126 beats per minute). ??There were only 4 APCs and 5 PVCs recorded. ?? There was no atrial fibrillation, SVT, pauses, av block or ventricular tachycardia. ??The patient provided 5 rhythm strips for symptoms of chest discomfort, irregular heartbeats, lightheadedness, fluttering, shortness of breath. ??For these occurred during sinus rhythm heart rate 60s to 80s and 1 occurred with sinus tachycardia heart rate 103 BPM. Conclusions: 4 APCs and 5 PVCs recorded in 24 hours. ?? The patient's symptoms generally occurred with sinus rhythm but once with sinus tachycardia. Voice recognition software was used to complete this document, therefore, tunneller variances may occur. Cris Meza MD, [facility] 10/14/22 [facility] Cardiology Procedure Note Cris Meza MD - 10/14/2022 AMBULATORY TABLE MAKER REPORT Patient Name: Araceli Cedeno Date of : 1985 Requesting Provider: Isidoro Olvera MD Referring provider: Deedee Long MD Date of interpretation: 10/14/22 Type of monitor : 24 hour Date of the study/Enrollment period: 10/07/2022 Indication: Palpitations, PVCs Quality of the study: Good Interpretation: The patient was monitored for 24 hours. The underlyingrhythm was sinus with an average heart rate of 84 beats per minute ([id number] beats per minute). There were only 4 APCs and 5 PVCs recorded.There was no atrial fibrillation, SVT, pauses, av block or ventriculartachycardia. The patient provided 5 rhythm strips for symptoms of chestdiscomfort, irregular heartbeats, lightheadedness, fluttering, shortnessof breath. For these occurred during sinus rhythm heart rate 60s to 80sand 1 occurred with sinus tachycardia heart rate 103 BPM. Conclusions: 4 APCs and 5 PVCs recorded in 24 hours. The patient's symptoms generally occurred with sinus rhythm but once withsinus tachycardia. Voice recognition software was used to complete this document, therefore,tunneller variances may occur. Cris Meza MD, [facility] 10/14/22 [facility] Cardiology Isidoro Olvera MD [facility] C[facility]IAC SERVICES PROC EDURES Final Result documented in this encounter Visit Diagnoses Diagnosis Frequent PVCs Palpitations documented in this encounter Care Teams Hospitalist Medical Director Relationship Specialty Start Date End Date Deedee Long MD PCP - General Family Medicine 10/07/22 documented as of this encounter
--- OUTSIDE RECORDS SUMMARY | 2024-09-16 07:05 | XMS_ITS | Encounter Summary ---
Author Organization [facility] Address [address] [place] [address] Care Team Providers Care Sheet Tailer Name Role Phone Kevin Vega MD Primary Care Provider [phone] Encounter Details Date Type Department Care Team (Late st Contact Info) Description 04/25/[address] [facility] Cardiology 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 She accidenly took a dose of metoprolol 50 mg again this morning and usually only takes it once daily at HS. I reassured her that she will be fine, observe for lightheadedness and dizziness, change positions slowly today. Hold tonight's dose and begin taking med again tomorrow evening. Pt does not have working BP cuff to check her BP. Pt verbalized understanding. * Telephone Encounter - Roxy Carlos - 04/25/2020 12:02 PM CDT Pt asking if their is anything to worry about, due to her taking to B/P pills. [phone] * Telephone Encounter - Sofia Alba RN - 04/25/2020 11:58 AM CDT Lm on for pt to return call * Telephone Encounter - Christie Adkins - 04/25/2020 11:49 AM CDT Pt called to report taking her bp medication last night and once again this morning. Pt report she is feeling fine. Pt wanted to know if there is something she need to do. documented in this encounter Plan of Treatment Not on file documented as of this encounter Visit Diagnoses Not on filedocumented in this encounter Care Teams Sheet Tailer Relationship Specialty Start Date End Date Kevin Vega MD [address] [place] [address] PCP - General Family Medicine 12/30/17 10/06/22 documented as of this encounter
--- OUTSIDE RECORDS SUMMARY | 2024-09-16 07:05 | XMS_ITS | Encounter Summary ---
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 No / Unsure 12/17/2019 10:03 AM CDT documented as of this encounter Plan of Treatment Not on file documented as of this encounter Visit Diagnoses Not on filedocumented in this encounter Care Teams Staff Toxicologist Relationship Specialty Start Date End Date Kevin Vega MD [address] [place] [address] PCP - General Family Medicine 12/30/17 10/06/22 documented as of this encounter
--- OUTSIDE RECORDS SUMMARY | 2024-09-16 07:05 | XMS_ITS | Encounter Summary ---
Author Organization [facility] Address [address] [facility] [address] [place] [address] Care Team Providers Care Hose Stripper Name Role Phone Kevin Vega MD Primary Care Provider [phone] Reason for Visit * Reason Comments ER Follow Up Encounter Details Date Type Department Care Team (Late st Contact Info) Description 11/23/2021 3:30 PM SET UP MECHANIC COIL WINDING MACHINES Office Visit [facility] Cardiology [address] [facility] [address] [place] [address] Chrissy Arango NP [address] [place] [address] Palpitations (Primary Dx); PVC (premature ventricular contraction); HTN (hypertension), benign; KENZIE on CPAP Social History Tobacco Use Types Packs/Day Years Used Date Smoking Tobacco: Never Smokeless Tobacco: Never Alcohol Use Standard Drinks/Week Comments No 0 (1 standard drink = 0.6 oz pur e alcohol) Comments Unknown Sex and Gender Information Value Date Recorded Sex Assigned at Not on file 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:55 AM SET UP MECHANIC COIL WINDING MACHINES Gender Identity Not on file Sexual Orientation Not on file documented as of this encounter Last Filed Vital Signs Vital Sign Reading Time Taken Comments Blood Pressure 120/72 11/23/2021 3:20 PM SET UP MECHANIC COIL WINDING MACHINES Pulse 93 11/23/2021 3:20 PM SET UP MECHANIC COIL WINDING MACHINES Temperature - - Respiratory Rate - - Oxygen Saturation 96% 11/23/2021 3:20 PM SET UP MECHANIC COIL WINDING MACHINES Inhaled Oxygen Concentration - - Weight 127.9 kg (282 lb) 11/23/2021 3:20 PM SET UP MECHANIC COIL WINDING MACHINES Height 162.6 cm (5' 4 ) 11/23/2021 3:20 PM SET UP MECHANIC COIL WINDING MACHINES Body Mass Index 48.41 11/23/2021 3:20 PM SET UP MECHANIC COIL WINDING MACHINES documented in this encounter Patient Instructions * Patient Instructions* Chrissy Arango NP - 11/23/2021 3:30 PM SET UP MECHANIC COIL WINDING MACHINES Increase metoprolol to 150 mg daily ( 1 and 1/2 tablet ) for about 2 weeks to help reduce PVC's andthen return to previous dose of 100 mg daily. Check blood pressure about an hour after taking the higher dose of metoprolol to make sure your blood pressure doesn't go too low. After doing this for 3 days, you don't need to keep checking it unless you don't feel well. UP MECHANIC COIL WINDING MACHINES documented in this encounter Ordered Prescriptions Prescription Sig Dispense Quantity Refills Last Filled Start Date End Date metoprolol XL (TOPROL-XL) 100 mg 24 hr tabletIndications: Palpitations Temporarily increase dose to 150mg daily for 2 weeks then reduce dose back to 100 mg daily thereafter. 37 tablet 11 11/23/2021 3 documented in this encounter Progress Notes * Chrissy Arango NP - 11/23/2021 3:30 PM CST Images from the original note were not included. [facility] Cardiology [address] [place] [address] Date of Visit: 11/23/2021 Patient ID: Araceli Cedeno 1985 Chief Complaint Patient presents with ??? ER Follow Up Araceli Cedeno is a 36 y.o. female who is an established patient of Dr. Olvera with a history of PVCs, hypertension, KENZIE, morbid obesity, returning to the office for complaint of increased palpitations. History of Present Illness: Araceli Cedeno is a 36 y.o. female [...] up with a migraine the following night. Records that I personally reviewed on the day of this visit include: (the interpretation is outlined in the HPI above) 09/24/[address] Olvera, 11/19/2021 [facility] ER record I have also reviewed: allergies, current medications, past family history, past medical history, past social history, past surgical history and problem list Medical History: Past Medical History: Diagnosis Date ??? Acid indigestion ??? Allergic rhinitis ??? Anxiety ??? Bladder infection ??? Cardiac rhythm disturbance ??? Depression ??? GERD (gastroesophageal reflux disease) ??? Hypertension ??? Migraines ??? Overweight ??? Sinusitis ??? Sleep apnea Past Surgical History: Procedure Laterality Date ??? BREAST SURGERY ??? SECTION ??? CHOLECYSTECTOMY ??? DILATION AND CURETTAGE OF UTERUS ??? UPPER GASTROINTESTINAL ENDOSCOPY ??? WISDOM TOOTH EXTRACTION Social History Tobacco Use ??? Smoking status: Never Smoker ??? Smokeless tobacco: Never Used Substance Use Topics ??? Alcohol use: No ??? Drug use: Never Family History Problem Relation Age of Onset ??? Arthritis Mother ??? Hypertension Mother ??? Obesity Mother ??? Arthritis Father ??? Depression Father ??? Diabetes Father ??? Drug abuse Father ??? Heart disease Father ??? Hypertension Father ??? Mental illness Father ??? Anemia Maternal Grandmother ??? Diabetes Maternal Grandmother ??? Vision loss Maternal Grandmother ??? Obesity Maternal Grandmother ??? Cancer Paternal Grandmother ??? Cancer Maternal Grandfather ??? Heart attack Maternal Grandfather ??? Hypertension Maternal Grandfather ??? Clotting disorder Maternal Grandfather ??? Drug abuse Sister ??? Mental illness Sister Review of Systems Constitutional: Positive for diaphoresis, malaise/fatigue and weight gain. Negative for fever. HENT: Negative for hearing loss. Eyes: Positive for visual disturbance. Cardiovascular: Positive for chest pain, dyspnea on exertion and palpitations. Negative for claudication, leg swelling, orthopnea, paroxysmal nocturnal dyspnea and syncope. Respiratory: Positive for shortness of breath and snoring. Negative for cough, hemoptysis and wheezing. Hematologic/Lymphatic: Does not bruise/bleed easily. Skin: Negative for poor wound healing and rash. Musculoskeletal: Positive for joint pain and myalgias. Gastrointestinal: Positive for heartburn and nausea. Negative for vomiting. Genitourinary: Negative for hematuria. Neurological: Positive for dizziness and headaches. Negative for light-headedness. Psychiatric/Behavioral: Negative for depression. The patient is not nervous/anxious. Vital Signs: BP 120/72 (BP Location: Left arm, Patient Position: Sitting) Pulse 93 Ht 162.6 cm (5' 4 ) Wt 127.9 kg (282 lb) SpO2 96% BMI 48.41 kg/m?? Physical Exam Constitutional: General: She is not in acute distress. Appearance: She is well-developed. She is morbidly obese. HENT: Head: Normocephalic and atraumatic. Nose: Comments: Wearing a mask Eyes: General: No scleral icterus. Conjunctiva/sclera: Conjunctivae normal. Neck: Vascular: No JVD. Trachea: No tracheal deviation. Cardiovascular: Rate and Rhythm: Normal rate and regular rhythm. Heart sounds: Normal heart sounds. No murmur heard. Pulmonary: Effort: Pulmonary effort is normal. No respiratory distress. Breath sounds: Normal breath sounds. Skin: General: Skin is warm and dry. Neurological: Mental Status: She is alert and oriented to person, place, and time. Psychiatric: Mood and Affect: Mood normal. Behavior: Behavior normal. Allergies Allergen Reactions ??? Promethazine Other (See comments) and Anxiety Panic attack Current Outpatient Medications: ??? calcium citrate-vitamin D3 500 mg calcium -400 unit tablet,chewable, Take by mouth daily., Disp: , Rfl: ??? cetirizine (ZyrTEC) 10 mg tablet, Take 10 mg by mouth daily, Disp: , Rfl: ??? cholecalciferol (VITAMIN D-3) 2,000 unit capsule, Take 2,000 Units by mouth daily., Disp: , Rfl: ??? magnesium oxide 500 mg capsule, Take by mouth daily., Disp: , Rfl: ??? multivitamin tablet,chewable, Take by mouth, Disp: , Rfl: ??? pantoprazole DR (PROTONIX) 40 mg EC tablet, , Disp: , Rfl: ??? pyridoxine, vitamin B6, 200 mg tablet extended release, Take by mouth Take 1 tab po in the morning and 0.5 tab po in the evening, Disp: , Rfl: ??? SAVELLA 50 mg tablet, Take 50 mg by mouth 2 (two) times a day., Disp: , Rfl: 0 ??? triamterene-hydroCHLOROthiazide 37.5-25 mg per tablet, Take 1 tablet by mouth every morning, Disp: , Rfl: ??? metoprolol XL (TOPROL-XL) 100 mg 24 hr tablet, Temporarily increase dose to 150mg daily for 2 weeks then reduce dose back to 100 mg daily thereafter., Disp: 37 tablet, Rfl: 11 No results found for: POTASSIUM, BUNSER, CREATININE, CHOL, TRIG, LDL, LDLCALC, HDL No results found for: WBC, HGB, HCT, MCV, PLT Assessment: Diagnoses and all orders for this visit: Palpitations (Primary) - metoprolol XL (TOPROL-XL) 100 mg 24 hr tablet; Temporarily increase dose to 150mg daily for 2 weeks then reduce dose back to 100 mg daily thereafter. PVC (premature ventricular contraction) HTN (hypertension), benign KENZIE on CPAP Plan/Recommendations: Recently she had increased palpitations consistent with her previously known PVCs, this flare seem to correlate with her COVID vaccine booster. She has also had elevated blood pressure readings this week. I explained to her it may be possible that the way the vaccine stimulator her immune system could aggravate her tendency to have PVCs. Because her blood pressure has been higher I recommend temporarily increasing her metoprolol succinate to 150 mg daily for 2 weeks and then resume her regular dose of metoprolol succinate 100 mg daily. She agreed to try this. I encouraged ongoing compliance with her CPAP machine. She is compliant with at most of the time. We will keep her previously scheduled routine follow-up with Dr. Olvera next year. However she know she can call us sooner with further concerns. 11/23/2021 Chrissy Arango ANP- Nurse Practitioner with [facility] Cardiology This note is dictated and transcribed using [employer] Direct Software. Movie Shot Cameraman variancesmay occur. Despite proofreading, typographical errors may occur. UP MECHANIC COIL WINDING MACHINES documented in this encounter Plan of Treatment Not on file documented as of this encounter Visit Diagnoses Diagnosis Palpitations- Primary PVC (premature ventricular contraction) Other premature beats HTN (hypertension), benign Essential hypertension, benign KENZIE on CPAP documented in this encounter Discontinued Medications Medication Sig Discontinue Reason Start Date End Da te metoprolol XL (TOPROL-XL) 100 mg 24 hr tablet TAKE 1 TABLET(100 MG) BY MOUTH DAILY Dose adjustment 10/01/2021 11/23/2021 documented as of this encounter Historical Medications * This list may reflect changes made after this encounter. pantoprazole DR (PROTONIX) 40 mg EC tablet 09/18/2021 triamterene-hydro CHLOROthiazide 37.5-25 mg per tablet Take 1 tablet/capsule by mouth every morning 10/28/2021 added in this encounter Care Teams Hose Stripper Relationship Specialty Start Date End Date Kevin Vega MD [address] [place] [place] [address] PCP - General Family Medicine 12/30/17 10/06/22 documented as of this encounter
--- OUTSIDE RECORDS SUMMARY | 2024-09-16 07:05 | XMS_ITS | Encounter Summary ---
Author Organization [facility] Address [address] [place] [address] Care Team Providers Care Fuel Injection Servicer Name Role Phone Kevin Vega MD Primary Care Provider [phone] Reason for Visit * Reason Comments Follow-up HR check and orthost atics visit only Encounter Details Date Type Department Care Team (Late st Contact Info) Description 12/17/2019 10:15 AM CDT Office Visit [facility] Cardiology [address] [place] [address] Frequent PVCs (Primary Dx) Social History Tobacco Use Types Packs/Day Years Used Date Smoking Tobacco: Never Smokeless Tobacco: Never Alcohol Use Standard Drinks/Week Comments No 0 (1 standard drink = 0.6 oz pur e alcohol) Comments Unknown Sex and Gender Information Value Date Recorded Sex Assigned at Not on file 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:55 AM BUSINESS SUPPORT ASSISTANT Gender Identity Not on file Sexual Orientation Not on file COVID-19 Exposure Response Date Recorded In the last month, have you been in contact with someone who was confirmed or suspected to have Coronavirus / COVID-19? No / Unsure 12/17/2019 10:03 AM CDT documented as of this encounter Last Filed Vital Signs Vital Sign Reading Time Taken Comments Blood Pressure 116/84 12/17/2019 10:48 AM CDT Pulse 84 12/17/2019 10:47 AM CDT Temperature - - Respiratory Rate - - Oxygen Saturation 96% 12/17/2019 10:47 AM CDT Inhaled Oxygen Concentration - - Weight - - Height - - Body Mass Index - - documented in this encounter Progress Notes * Disha Garner MA - 12/17/2019 10:15 AM CDT Patient here for HR and orthostatic BP check for lightheadedness since starting metoprolol about one month ago. Patient states she feels off . BP 124/86, left arm., sitting. BP 116/84, left arm, standing. HR 84 BPM. SpO2 96% on room air. Patient states she will contact the doctor she sees for her fibromyalgia since her HR and BP are OK . documented in this encounter Plan of Treatment Not on file documented as of this encounter Visit Diagnoses Diagnosis Frequent PVCs- Primary documented in this encounter Care Teams Fuel Injection Servicer Relationship Specialty Start Date End Date Kevin Vega MD [address] [place] [address] PCP - General Family Medicine 12/30/17 10/06/22 documented as of this encounter
--- OUTSIDE RECORDS SUMMARY | 2024-09-16 07:05 | XMS_ITS | Encounter Summary ---
Author Organization [facility] Address [address] [place] [address] Care Team Providers Care Dyno Technician Name Role Phone Kevin Vega MD Primary Care Provider [phone] Encounter Details Date Type Department Care Team (Late st Contact Info) Description 04/22/2022 Telephone [facility] Cardiology [address] [place] [address] Isidoro Olvera MD [address] [facility] [address] [place] [address] Social History Tobacco Use Types Packs/Day Years Used Date Smoking Tobacco: Never Smokeless Tobacco: Never Alcohol Use Standard Drinks/Week Comments No 0 (1 standard drink = 0.6 oz pur e alcohol) Comments Unknown Sex and Gender Information Value Date Recorded Sex Assigned at Not on file 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:55 AM SUPERCHARGER REPAIR SUPERVISOR Gender Identity Not on file Sexual Orientation Not on file documented as of this encounter Miscellaneous Notes * Telephone Encounter - Emerita Walker RN - 04/22/2022 1:11 PM CDT Called pt and reviewed message from CT-pt verbalized the understanding and appreciated the callback. * Telephone Encounter - Chrissy Arango NP - 04/22/2022 12:28 PM CDT I suspect this may have been brought on by not using her CPAP regularly. And maybe taking the medication late yesterday threw things off. She can take an additional 50 mg of metoprolol the next couple days. But hopefully with resuming regular use of her CPAP, this will help her feel better. Please remind her to check her heart rate along with her blood pressure when she does her vitals. Please tell her to call us back within a week if things are better. Thank you. * Telephone Encounter - Emerita Walker RN - 04/22/2022 9:19 AM CDT Spoke with pt, she notes as of yesterday evening she started having some increased palpitations. Ptwent to bed and woke up feeling worse this morning. Pt still has the increased palpitations, initially she had a terrible MEYER which is improving at this point, she has some worsened muscular pain-she can touch her chest and it is sore-she thinks this is likely her fibromyalgia, she is shaky and she has a little SOB with movement. Pt also noted that yesterday she didn't take her morning medicationsat 0900 like normal and took them at 1500 instead. Pt has not been using her CPAP at home either for the past 2 weeks d/t having new dog but did start back using it last night. BP today is 114/74 andpt says that is what it has been running. Pt has been taking metoprolol 150mg daily since last incident but has not taken her morning meds yet today. Advised pt to take her medications now and I would discuss with CT. Will forward to CT. Please advise, thank you! * Telephone Encounter - Etelvina Durham - 04/22/2022 8:07 AM CDT Pt states she woke up this morning with increased palpitations. Reports headache, nauseas, and chest tightness. States last night she did take her medicine later than usual. Also states she has not been using her CPAP machine. Last night she used her CPAP machine for the first time in two weeks. Contact: documented in this encounter Plan of Treatment Not on file documented as of this encounter Visit Diagnoses Not on filedocumented in this encounter Care Teams Dyno Technician Relationship Specialty Start Date End Date Kevin Vega MD [address] [place] [address] PCP - General Family Medicine 12/30/17 10/06/22 documented as of this encounter
--- OUTSIDE RECORDS SUMMARY | 2024-09-16 07:05 | XMS_ITS | Encounter Summary ---
Author Organization [facility] Address [address] [place] [address] Care Team Providers Care Metal Drawer Name Role Phone Kevin Vega MD Primary Care Provider [phone] Encounter Details Date Type Department Care Team (Late st Contact Info) Description 09/20/2021 Orders Only [facility] Cardiology [address] [place] [id number] Provider, MD [facility] [place] [phone] Social History Tobacco Use Types Packs/Day Years Used Date Smoking Tobacco: Never Smokeless Tobacco: Never Alcohol Use Standard Drinks/Week Comments No 0 (1 standard drink = 0.6 oz pur e alcohol) Comments Unknown Sex and Gender Information Value Date Recorded Sex Assigned at Not on file 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:55 AM DIAL LATHE OPERATOR Gender Identity Not on file Sexual Orientation Not on file documented as of this encounter Plan of Treatment Not on file documented as of this encounter Procedures Procedure Name Priority Date/Time Associated Diagnosis Comments LIPID PANEL Routine 03/30/2021 documented in this encounter Results * (ABNORMAL) Lipid panel (03/30/2021) SCRIBED Cholesterol, Total 186 100 - 199 EXTERNAL LAB SCRIBED HDL 41 40 - 60 EXTERNAL LAB SCRIBED LDL 116(A) 0 - 99 EXTERNAL LAB SCRIBED Triglycerides 170(A) 0 - 149 EXTERNAL LAB Blood specimen (specimen) us Historical Provider LAB BLOOD ORDERABLES Edit ed Result - Final EXTERNAL LAB documented in this encounter Visit Diagnoses Not on filedocumented in this encounter Care Teams Metal Drawer Relationship Specialty Start Date End Date Kevin Vega MD [address] [place] [address] PCP - General Family Medicine 12/30/17 10/06/22 documented as of this encounter
--- OUTSIDE RECORDS SUMMARY | 2024-09-16 07:05 | XMS_ITS | Encounter Summary ---
Author Organization [facility] Address [address] [facility] [address] [place] [address] Care Team Providers Care Processor Grain Name Role Phone Kevin Vega MD Primary Care Provider [phone] Encounter Details Date Type Department Care Team (Late st Contact Info) Description 03/18/2022 Telephone [facility] Cardiology [address] [place] [address] Isidoro Olvera MD [address] [facility] [address] [place] [address] Social History Tobacco Use Types Packs/Day Years Used Date Smoking Tobacco: Never Smokeless Tobacco: Never Alcohol Use Standard Drinks/Week Comments No 0 (1 standard drink = 0.6 oz pur e alcohol) Comments Unknown Sex and Gender Information Value Date Recorded Sex Assigned at Not on file 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:55 AM CONSUMER MARKETING SPECIALIST Gender Identity Not on file Sexual Orientation Not on file documented as of this encounter Ordered Prescriptions Prescription Sig Dispense Quantity Refills Last Filled Start Date End Date metoprolol XL (TOPROL-XL) 50 mg extended release tablet Take 1 tablet (50 mg total) by mouth daily To be taken with 100 mg tablet to total 150 mg daily. 30 tablet 11 03/19/2022 02/25/2023 documented in this encounter Miscellaneous Notes * Telephone Encounter - Sofia Alba RN - 03/19/2022 8:03 AM CDT Note below reviewed with t. Pt agreeable. New rx sent in for 50 mg metoprolol to be taken with 100 mg tablet. * Telephone Encounter - Chrissy Arango NP - 03/18/2022 4:21 PM CDT I agree with the likelihood that what ever virus she had caused fatigue. Sounds like she may do better with staying on the metoprolol succinate 150 mg daily. This would be my preference for her if she agrees to it. We could send a prescription for 100 mg tablet and a 50 mg tablet and have her take both on a daily basis. Thank you. * Telephone Encounter - Sofia Alba RN - 03/18/2022 2:58 PM CDT Pt calls to report increase in her palpitation and fatigue. She has been sick with allergy / covid like symptoms and went to an urgent care. Dx was a virus but COVID neg PCR test. At last OV, pt was advised to take 150 mg metoprolol daily for 2 weeks but pt had still been takingthe higher dose until last Friday, at which time she began the 100 mg daily because the RX ran out. Pts palpitations started to increase on . Over the weekend she was severely exhausted but is feeling a little better today from the virus A little SOB at times, especially when she notices the palpitations. BP has nigel running 111/70- 120/90. She is not sure of her HR. ( She is going to check her BP cuff once home to see if it gives a HR) We discussed that the fatigue may be related to the virus and the increase in palp and palpitationsmore to the decrease in metoprolol dose. ( Decreased dose on fri and increase in palp started on ) Last OV with CT 2.25 Plan/Recommendations: Recently she had increased palpitations consistent [...] mg daily. She agreed to try this. Please advise * Telephone Encounter - Sofia Alba RN - 03/18/2022 2:39 PM CDT Lm on requesting call back to discuss * Telephone Encounter - Etelvina Durham - 03/18/2022 1:57 PM CDT Pt reports palpitations, light headedness, and exhaustion. States she was congested last week and took a COVID test and it was negative. Requesting call back to discuss symptoms. Contact: documented in this encounter Plan of Treatment Not on file documented as of this encounter Visit Diagnoses Not on filedocumented in this encounter Care Teams Processor Grain Relationship Specialty Start Date End Date Kevin Veag MD [address] [place] [address] PCP - General Family Medicine 12/30/17 10/06/22 documented as of this encounter
--- OUTSIDE RECORDS SUMMARY | 2024-09-16 07:05 | XMS_ITS | Encounter Summary ---
Author Organization [facility] Address [address] [place] [address] Care Team Providers Care Temporary Administrative Assistant Name Role Phone Deedee Long MD Primary Care Provider + Reason for Referral * Cardiology (Routine) - Closed Specialty Diagnoses / Procedures Referred By Contac t Referred To Contact Diagnoses Frequent PVCs Palpitations Procedures 48 HR Holter Monitor Isidoro Olvera MD Phone: tel: fax: [facility] Referral ID Status Reason Start Date Expiration Date Visits Re quested Visits Authorized [id number] Closed 10/07/2022 11/06/2023 1 1 ONNEL AND PAYROLL TECHNICIAN Reason for Visit * Reason Comments Follow-up 11 mo f/u Hypertension Palpitations PVC's Encounter Details Date Type Department Care Team (Late st Contact Info) Description 10/07/2022 3:45 PM PERSONNEL AND PAYROLL TECHNICIAN Office Visit [facility] Cardiology [address] [place] [address] Isidoro Olvera MD [address] [facility] [address] [place] [address] Frequent PVCs (Primary Dx); HTN (hypertension), benign; Pulmonary HTN (CMS/HCC) (HCC); Palpitations; Chronic fatigue; Morbid obesity with BMI of 45.0-49.9, adult (CMS/HCC) (HCC); KENZIE on CPAP; Lipid screening Social History Tobacco Use Types Packs/Day Years Used Date Smoking Tobacco: Never Smokeless Tobacco: Never Alcohol Use Standard Drinks/Week Comments No 0 (1 standard drink = 0.6 oz pur e alcohol) Comments Unknown Sex and Gender Information Value Date Recorded Sex Assigned at Not on file 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:55 AM PERSONNEL AND PAYROLL TECHNICIAN Gender Identity Not on file Sexual Orientation Not on file documented as of this encounter Last Filed Vital Signs Vital Sign Reading Time Taken Comments Blood Pressure 110/72 10/07/2022 4:07 PM PERSONNEL AND PAYROLL TECHNICIAN Pulse 89 10/07/2022 4:07 PM PERSONNEL AND PAYROLL TECHNICIAN Temperature - - Respiratory Rate - - Oxygen Saturation 98% 10/07/2022 4:07 PM PERSONNEL AND PAYROLL TECHNICIAN Inhaled Oxygen Concentration - - Weight 127.7 kg (281 lb 8 oz) 10/07/2022 4:07 PM PERSONNEL AND PAYROLL TECHNICIAN Height 162.6 cm (5' 4 ) 10/07/2022 4:07 PM PERSONNEL AND PAYROLL TECHNICIAN Body Mass Index 48.32 10/07/2022 4:07 PM PERSONNEL AND PAYROLL TECHNICIAN documented in this encounter Progress Notes * Isidoro Olvera MD - 10/07/2022 3:45 PM CST [facility] DATE OF VISIT: 10/07/2022 CHIEF COMPLAINT Chief Complaint Patient presents with Follow-up 11 mo f/u Hypertension Palpitations PVC's ASSESSMENT Diagnoses and all orders for this visit: Frequent PVCs (Primary) - 48 HR Holter Monitor; Future - Transthoracic Echo (TTE) Complete W Doppler/CF; Future HTN (hypertension), benign - Transthoracic Echo (TTE) Complete W Doppler/CF; Future Pulmonary HTN (CMS/HCC) (HCC) - Transthoracic Echo (TTE) Complete W Doppler/CF; Future Palpitations - 48 HR Holter Monitor; Future Chronic fatigue - Transthoracic Echo (TTE) Complete W Doppler/CF; Future Morbid obesity with BMI of 45.0-49.9, adult (CMS/HCC) (HCC) KENZIE on CPAP - Transthoracic Echo (TTE) Complete W Doppler/CF; Future PLAN/RECOMMENDATIONS 1. Continue Toprol XL 150mg daily, symptomatic improvement. Expect better suppression with adjustment. Monitor tolerance. More obvious off CPAP. -24 hour Holter monitor document PVC frequency. Recommendations to follow. 2. BP controlled, goal <140/90mmHg. Monitor BP on routine basis. Call with readings. Continue consistent cardiovascular exercise, weight loss, medication compliance, and low-sodium diet. -On Triamterene/HCTZ 37.5/25 mg once daily per PCP and Toprol XL 150mg daily, lisinopril 10 mg daily. 3. 2D echo 02/2019 personally reviewed EF normal, mild LVH, mild PHTN RVSP 37mmHg. -repeat 2D echo to assess LV size/function, valve pathology, chamber size, pulmonary pressures given history of hypertension, fatigue, DARLING, palpitations PVCs. Recommendations to follow. 4. Lifestyle modification counseling performed. Weight loss, exercise, reduction in caloric intake. 4. Compliance with CPAP. 5. Lipids personally reviewed 10/07/22 LDL 82, reasonably well controlled goal LDL<130. Continue lifestyle modification. Over 50% of this visit counseling PVC's, tachycardia, palpitations, HTN, lipids, medications, lifestyle modification. Follow up in the office in 1 year or sooner as needed. Thank you for allowing me the privilege of participating in the care this very pleasant patient. Please do not hesitate to contact me with any additional questions or concerns. HPI Araceli Cedeno is a 37 y.o. female with a PMHx of anxiety/depression, [...] LN axillary working with PCP ever since COVID in April. Vincent meds no sig changes. Vincent Metoprolol 150mg daily. No change in edema no new limitations. MEDICAL HISTORY Past Medical History: Diagnosis Date Acid indigestion Allergic rhinitis Anxiety Bladder infection Cardiac rhythm disturbance Depression GERD (gastroesophageal reflux disease) Hypertension Migraines Overweight Sinusitis Sleep apnea Social History Tobacco Use Smoking status: Never Smoker Smokeless tobacco: Never Used Substance Use Topics Alcohol use: No Drug use: Not on file Family History [...] Grandfather Drug abuse Sister Mental illness Sister No history of premature atherosclerosis and is otherwise not relevant. MEDICATIONS HOME MEDICATIONS : calcium citrate-vitamin D3 500 mg calcium -400 unit tablet,chewable cetirizine (ZyrTEC) 10 mg tablet cholecalciferol (VITAMIN D-3) 2,000 unit capsule lisinopriL (PRINIVIL,ZESTRIL) 10 mg tablet magnesium oxide 500 mg capsule metoprolol XL (TOPROL-XL) 100 mg 24 hr tablet metoprolol XL (TOPROL-XL) 50 mg extended release tablet multivitamin tablet,chewable pantoprazole DR (PROTONIX) 40 mg EC tablet pyridoxine, vitamin B6, 200 mg tablet extended release SAVELLA 50 mg tablet triamterene-hydroCHLOROthiazide 37.5-25 mg per tablet ALLERGIES Allergies Allergen Reactions Fluconazole Anxiety Promethazine Other (See comments) and Anxiety Panic [...] not nervous/anxious. Allergic/Immunologic: Negative for environmental allergies. All other systems reviewed and are negative. PHYSICAL EXAM Vitals BP 110/72 (BP Location: Left arm, Patient Position: Sitting) Pulse 89 Ht 162.6 cm (5' 4 ) Wt 127.7 kg (281 lb 8 oz) SpO2 98% BMI 48.32 kg/m?? Weight: 127.7 kg (281 lb 8 oz) Height: 162.6 cm (5' 4 ) Body mass index is 48.32 kg/m??. Physical Exam Vitals reviewed. Constitutional: General: She is not in acute distress. Appearance: Normal appearance. She is well-developed. She is not diaphoretic. Comments: Wearing a mask HENT: Head: Normocephalic and atraumatic. Right Ear: External ear normal. Left Ear: External ear normal. Nose: Nose normal. Mouth/Throat: Mouth: Mucous membranes are moist. Dentition: Normal dentition. Eyes: General: Lids are normal. No scleral icterus. Extraocular Movements: Extraocular movements intact. Conjunctiva/sclera: Conjunctivae normal. Neck: Thyroid: No thyromegaly. Vascular: Normal carotid pulses. No carotid bruit, hepatojugular reflux or JVD. Trachea: No tracheal deviation. Cardiovascular: Rate and Rhythm: Regular rhythm. Tachycardia present. FrequentExtrasystoles are present. Pulses: Normal pulses and intact distal pulses. No decreased pulses. Heart sounds: S1 normal and S2 [...] visit. Latest known visit with results is: Orders Only on 09/20/2021 Component Date Value Ref Range Status SCRIBED Cholesterol, Total 03/30/2021 186 100 - 199 Final SCRIBED HDL 03/30/2021 41 40 - 60 Final SCRIBED LDL 03/30/2021 116 (A) 0 - 99 Final SCRIBED Triglycerides 03/30/2021 170 (A) 0 - 149 Final Results for orders [...] test, and bloodwork/lipids. Kain Olvera MD, FACC ONNEL AND PAYROLL TECHNICIAN documented in this encounter Miscellaneous Notes * Addendum Note - Jignesh Lewis MA - 10/07/2022 3:45 PM CSTAddended by: JIGNESH LEWIS on: 10/07/2022 05:03 PM Modules accepted: Orders ONNEL AND PAYROLL TECHNICIAN documented in this encounter Plan of Treatment Not on file documented as of this encounter Procedures Procedure Name Priority Date/Time Associated Diagnosis Comments POCT LIPID PANEL Routine 10/07/2022 5:02 PM PERSONNEL AND PAYROLL TECHNICIAN Lipid screening documented in this encounter Results * 48 HR Holter Monitor (10/07/2022 5:11 PM PERSONNEL AND PAYROLL TECHNICIAN) Anatomical Region Laterality Modality Other Narrative 10/14/2022 5:13 PM PERSONNEL AND PAYROLL TECHNICIAN AMBULATORY SUPERVISOR LAMP SHADES REPORT Patient Name: Araceli Cedeno Date of [...] was used to complete this document, therefore, conciliation court judge variances may occur. Cris Meza MD, [facility] 10/14/22 [facility] Cardiology Procedure Note Cris Meza MD - 10/14/2022 AMBULATORY SUPERVISOR LAMP SHADES REPORT Patient Name: Araceli Cedeno Date of [...] heart rate of 84 beats per minute ([id number] beats per minute). There were only 4 [...] software was used to complete this document, therefore,conciliation court judge variances may occur. Cris Meza MD, [facility] 10/14/22 [facility] Cardiology Isidoro Olvera MD [facility] CARDIAC SERVICES PROC EDURES Final Result * POCT lipid panel (10/07/2022 5:02 PM PERSONNEL AND PAYROLL TECHNICIAN) Cholesterol, POC 180 mg/dL Comment:GLU = 132 HDL, POC 25 mg/dL Triglycerides, POC 363 mg/dL LDL Cholesterol POC 82 mg/dL Chol/HDL Ratio, POC 3.3 Non-HDL Cholesterol, POC 155 mg/dL Cholesterol Total, POC 180 mg/dL Capillary blood 10/07/2022 5 :02 PM PERSONNEL AND PAYROLL TECHNICIAN Isidoro Olvera MD POINT OF CARE TEST ORDER SHONA Final Result documented in this encounter Visit Diagnoses Diagnosis Frequent PVCs- Primary HTN (hypertension), benign Essential hypertension, benign Pulmonary HTN (HCC) Palpitations Chronic fatigue Other malaise and fatigue Morbid obesity with BMI of 45.0-49.9, adult (HCC) KENZIE on CPAP Lipid screening Screening for lipoid disorders Frequent PVCs Palpitations documented in this encounter Care Teams Temporary Administrative Assistant Relationship Specialty Start Date End Date Deedee Long MD PCP - General Family Medicine 10/07/22 documented as of this encounter
--- OUTSIDE RECORDS SUMMARY | 2024-09-16 07:05 | XMS_ITS | Encounter Summary ---
Author Organization [facility] Address [address] [place] [address] Care Team Providers Care Grants Director Name Role Phone Kevin Vega MD Primary Care Provider [phone] Encounter Details Date Type Department Care Team (Late st Contact Info) Description 12/14/2019 Telephone [facility] Cardiology [address] [facility] [address] [place] [address] Isidoro Olvera MD [address] [facility] [address] [place] [address] Social History Tobacco Use Types Packs/Day Years Used Date Smoking Tobacco: Never Smokeless Tobacco: Never Alcohol Use Standard Drinks/Week Comments No 0 (1 standard drink = 0.6 oz pur e alcohol) Comments Unknown Sex and Gender Information Value Date Recorded Sex Assigned at Not on file 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:55 AM HIDE AND SKIN PROCESSING WORKER Gender Identity Not on file Sexual Orientation Not on file COVID-19 Exposure Response Date Recorded In the last month, have you been in contact with someone who was confirmed or suspected to have Coronavirus / COVID-19? No / Unsure 12/17/2019 10:03 AM CDT documented as of this encounter Miscellaneous Notes * Telephone Encounter - Sofia Alba RN - 12/14/2019 2:51 PM CDT Spoke with pt who states she has been having lightheadedness. Pt states her palpitations have improved. Pt states she forgot to Only take 1/2 tab in the beginning when starting med she was unable to say if symptoms were better on 25 mg. Reviewed orthostatic safety precautions. BP check made for Friday. Pt does not have ability to check BP at home. * Telephone Encounter - Sofia Alba RN - 12/14/2019 12:33 PM CDT Lm on vm * Telephone Encounter - Krystal Beard - 12/14/2019 12:23 PM CDT Pt returned call. [phone] * Telephone Encounter - Sofia Alba RN - 12/14/2019 12:19 PM CDT Lm on vm for pt to return call * Telephone Encounter - Roxy Carlos - 12/14/2019 11:35 AM CDT Pt called to report that she is getting light headed and dizzy when she takes the medication Metoprolol XL 50 mg [phone] documented in this encounter Plan of Treatment Not on file documented as of this encounter Visit Diagnoses Not on filedocumented in this encounter Care Teams Grants Director Relationship Specialty Start Date End Date Kevin Vega MD [address] [place] [address] PCP - General Family Medicine 12/30/17 10/06/22 documented as of this encounter
--- OUTSIDE RECORDS SUMMARY | 2024-09-16 07:05 | XMS_ITS | Encounter Summary ---
Author Organization [facility] Address [address] [place] [address] Care Team Providers Care Lath Tier Name Role Phone Kevin Vega MD Primary Care Provider [phone] Encounter Details Date Type Department Care Team (Late st Contact Info) Description 11/20/2021 Telephone [facility] Cardiology [address] [place] [address] Isidoro Olvera MD [address] [facility] [address] [place] [address] Social History Tobacco Use Types Packs/Day Years Used Date Smoking Tobacco: Never Smokeless Tobacco: Never Alcohol Use Standard Drinks/Week Comments No 0 (1 standard drink = 0.6 oz pur e alcohol) Comments Unknown Sex and Gender Information Value Date Recorded Sex Assigned at Not on file 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:55 AM LACE INSPECTOR Gender Identity Not on file Sexual Orientation Not on file documented as of this encounter Miscellaneous Notes * Telephone Encounter - Justine Prince RN - 11/20/2021 12:56 PM LACE INSPECTOR Spoke with pt, pt states she was at ER yesterday for difficulty forming words, trouble typing, increased heart palpitions, elevated BP, sob, and increased pvc's. Pt states she was discharged home and she thinks this may have been a silent migraine Pt is doing better today, but continues to have more frequent PVC's and elevated blood pressure. Pt would like an appt to f/u on these symptoms. Appt scheduled for CT on 11/23. Pt advised to call with any further questions. I did spoke with evelyn at medical records and faxed a request for pts ER record but have not received I yet. INSPECTOR * Telephone Encounter - Justine Prince RN - 11/20/2021 12:34 PM LACE INSPECTOR LM on requesting return call. INSPECTOR * Telephone Encounter - Justine Prince RN - 11/20/2021 10:58 AM LACE INSPECTOR Faxed request to medical records for ER chart. INSPECTOR * Telephone Encounter - Etelvina Durham - 11/20/2021 10:26 AM CST Pt called to report she has been having PVC's, SOB with exertion, and high BP. States she has been experiencing all this since she got her booster shot on 10/04. States she was at [place] [facility] yesterdaybecause she had an episode where she couldn't talk, type, or write correctly. Requesting call back to discuss. 11/19 BP= 156/103 11/20 BP= 127/93, 141/91 Contact: INSPECTOR documented in this encounter Plan of Treatment Not on file documented as of this encounter Visit Diagnoses Not on filedocumented in this encounter Care Teams Lath Tier Relationship Specialty Start Date End Date Kevin Vega MD [address] [place] [address] PCP - General Family Medicine 12/30/17 10/06/22 documented as of this encounter
--- OUTSIDE RECORDS SUMMARY | 2024-09-16 07:06 | XMS_ITS | Encounter Summary ---
Author Organization [facility] Address [address] [place] [address] Care Team Providers Care Print Line Supervisor Name Role Phone Kevin Vega MD Primary Care Provider [phone] Reason for Visit * Cardiology (Routine) - Closed Specialty Diagnoses / Procedures Referred By Contac t Referred To Contact Diagnoses Palpitations Frequent PVCs Procedures 48 HR Holter Monitor Isidoro Olvera MD Phone: tel: fax: Referral ID Status Reason Start Date Expiration Date Visits Re quested Visits Authorized [id number] Closed 07/23/2019 01/31/2021 1 1 Encounter Details Date Type Department Care Team (Latest Contact Info) Description 07/28/2019 3:15 PM CDT Ancillary Procedure [facility] Cardiology [address] [place] [address] Palpitations; Frequent PVCs Social History Tobacco Use Types Packs/Day Years Used Date Smoking Tobacco: Never Smokeless Tobacco: Never Alcohol Use Standard Drinks/Week Comments No 0 (1 standard drink = 0.6 oz pur e alcohol) Comments Unknown Sex and Gender Information Value Date Recorded Sex Assigned at Not on file 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:55 AM RESTAURANT MANAG[employer] INTERNS[employer]IP Gender Identity Not on file Sexual Orientation Not on file documented as of this encounter Procedure Notes * Isidoro Olvera MD - 07/28/2019 12:00 AM CDT Indication Palpitations. Interpretation This is a 48-hour Holter monitor for which underlying rhythm is sinus rhythm with an average heart rate of 92 beats per minute, minimum 67 beats per minute occurring at 7:07 a.m., and a maximum 155 beats per minute occurring at 1:05 p.m. There were frequent premature ventricular contractions totaling 18,885, which is 7.2% burden, and no premature atrial contractions noted. There is no atrial fibrillation, atrial flutter, prolonged pauses or high-grade AV blocks. There are occasional ventricularbigeminy and rare ventricular trigeminy noted. There is no sustained or nonsustained ventricular tachycardia identified. The patient's symptoms of heart fluttering while playing with kids at 6:15 p.m. and 3:15 p.m., skipping heartbeats at 10 a.m. The indicated symptoms as noted were predominantly associated with sinus rhythm. Conclusions Underlying sinus rhythm with frequent premature ventricular contractions totaling 7.2% of burden over 48 hours without sustained or nonsustained ventricular tachycardia. Job ID/VF Job ID: [id number] [employer] documented in this encounter Plan of Treatment Pending Results Name Type Priority Associated Diagnoses Date /Time 48 HR Holter Monitor Cardiac Services Routine Palpitations Frequent PVCs 07/28/2019 3:14 PM CDT documented as of this encounter Visit Diagnoses Diagnosis Palpitations Frequent PVCs documented in this encounter Care Teams Print Line Supervisor Relationship Specialty Start Date End Date Kevin Vega MD [address] [place] [id number] PCP - General Family Medicine 12/30/17 10/06/22 documented as of this encounter
--- OUTSIDE RECORDS SUMMARY | 2024-09-16 07:06 | XMS_ITS | Encounter Summary ---
Author Organization [facility] Care Team Providers Care Claims Specialist Name Role Phone Kevin Vega MD Primary Care Provider [phone] Encounter Details Date Type Department Care Team (Latest Contact Info) Description 07/28/2019 Travel Social History Tobacco Use Types Packs/Day Years Used Date Smoking Tobacco: Never Smokeless Tobacco: Never Alcohol Use Standard Drinks/Week Comments No 0 (1 standard drink = 0.6 oz pur e alcohol) Comments Unknown Sex and Gender Information Value Date Recorded Sex Assigned at Not on file 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:55 AM BILINGUAL RECRUITER Gender Identity Not on file Sexual Orientation Not on file documented as of this encounter Plan of Treatment Not on file documented as of this encounter Visit Diagnoses Not on filedocumented in this encounter Care Teams Claims Specialist Relationship Specialty Start Date End Date Kevin Vega MD [address] [place] [address] PCP - General Family Medicine 12/30/17 10/06/22 documented as of this encounter
--- OUTSIDE RECORDS SUMMARY | 2024-09-16 07:07 | XMS_ITS | Encounter Summary ---
Author Organization 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
--- OUTSIDE RECORDS SUMMARY | 2024-09-16 07:07 | XMS_ITS | Encounter Summary ---
Author Organization [facility] Address [address] [place] [address] Care Team Providers Care Foundry Worker Apprentice Name Role Phone Kevin Vega MD Primary Care Provider [phone] Reason for Referral * Cardiology (Routine) - Closed Specialty Diagnoses / Procedures Referred By Contac cyrus Referred To Contact Diagnoses Palpitations Frequent PVCs Procedures 48 HR Holter Monitor Isidoro Ovlera MD Phone: tel: fax: Referral ID Status Reason Start Date Expiration Date Visits Re quested Visits Authorized [id number] Closed 07/23/2019 01/31/2021 1 1 Reason for Visit * Reason Comments Follow-up 3 week follow up on PVC's, KENZIE, HTN, palps, QT prolongation Encounter Details Date Type Department Care Team (Late st Contact Info) Description 07/23/2019 9:45 AM CDT Office Visit [facility] [address] [place] [address] Isidoro Olvera MD [facility] [facility] [address] [place] [address] Palpitations (Primary Dx); Pulmonary HTN (CMS/HCC); Frequent PVCs; HTN (hypertension), benign; KENZIE on CPAP; Other chest pain Social History Tobacco Use Types Packs/Day Years Used Date Smoking Tobacco: Never Smokeless Tobacco: Never Alcohol Use Standard Drinks/Week Comments No 0 (1 standard drink = 0.6 oz pur e alcohol) Comments Unknown Sex and Gender Information Value Date Recorded Sex Assigned at Not on file 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 Gender Identity Not on file Sexual Orientation Not on file documented as of this encounter Last Filed Vital Signs Vital Sign Reading Time Taken Comments Blood Pressure 110/72 07/23/2019 10:02 AM CDT Pulse 90 07/23/2019 10:02 AM CDT Temperature - - Respiratory Rate - - Oxygen Saturation 96% 07/23/2019 10:02 AM CDT Inhaled Oxygen Concentration - - Weight 120.2 kg (265 lb) 07/23/2019 10:02 AM CDT Height 162.6 cm (5' 4 ) 07/23/2019 10:02 AM CDT Body Mass Index 45.49 07/23/2019 10:02 AM CDT documented in this encounter Progress Notes * Isidoro Olvera MD - 07/23/2019 9:45 AM CDT [facility] DATE OF VISIT: 07/23/2019 CHIEF COMPLAINT Chief Complaint Patient presents with ??? Follow-up 3 week follow up on PVC's, KENZIE, HTN, palps, QT prolongation ASSESSMENT Diagnoses and all orders for this visit: Palpitations (Primary) - ECG 12 lead - 48 HR Holter Monitor; Future Pulmonary HTN (CMS/HCC) Frequent PVCs - 48 HR Holter Monitor; Future HTN (hypertension), benign KENZIE on CPAP Other chest pain PLAN/RECOMMENDATIONS 1. Cont Labetolol for now, palps tolerated controlled but use primarily for BP control at present. -Repeat 48 Hour Holter monitor to document PVC frequency. -Repeat BMP, Mg after review of Holter depending upon arrhythmia burden. 2. BP controlled on Labetolol. No change at this time as may risk greater symptomatic hypotension. Monitor BP on routine basis. Call with readings. Continue consistent cardiovascular exercise, weightloss, medication compliance, and low-sodium diet. 3. CP atypical, most likely noncardiac, nonexertional. 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 2D echo 02/2019 personally reviewed EF normal, mild LVH, mild PHTN RVSP 37mmHg. 5. 12 lead EKG today sinus rhythm 80 beats per minute MS interval 144 milliseconds QRS 102 milliseconds QT corrected 443 milliseconds PVCs Over 50% of this visit counseling PVC's, tachycardia, palpitations, HTN, lipids, medications, lifestyle modification. Follow up in the office in 2-3 months or sooner as needed. Thank you [...] her legs wears compression stockings which helps. MEDICAL HISTORY Past Medical History: Diagnosis Date [...] tablet,chewable cholecalciferol (VITAMIN D-3) 2,000 unit capsule labetalol (NORMODYNE,TRANDATE) 200 mg tablet loratadine (CLARITIN) 10 mg tablet magnesium oxide [...] blurred vision and pain. Cardiovascular: Positive for chest pain and palpitations. Negative for claudication, dyspnea on exertion, irregular heartbeat, leg [...] for environmental allergies. PHYSICAL EXAM Vitals BP 110/72 (BP Location: Right arm, Patient Position: Sitting) Pulse 90 Ht 162.6 cm (5' 4 ) Wt 120.2 kg (265 lb) SpO2 96% BMI 45.49 kg/m?? Weight: 120.2 kg (265 lb) Height: 162.6 cm (5' 4 ) Body mass index is 45.49 kg/m??. Physical Exam Constitutional: She is oriented [...] There is no rebound and no guarding. Obese and gravid Musculoskeletal: Normal range of motion. General: No [...] Palpitations Frequent PVCs 07/28/2019 3:14 PM CDT Scheduled Orders Name Type Priority Associated Diagnoses Orde r Schedule 48 HR Holter Monitor Cardiac Services Routine Palpitations Frequent PVCs Expected: 07/23/2019, Expires: 07/23/2020 documented as of this encounter Procedures Procedure Name Priority Date/Time Associated Diagnosis Comments ECG 12-LEAD Routine 07/23/2019 Palpitations documented in this encounter Results * ECG 12 lead (07/23/2019) Isidoro Olvera MD ECG ORDERABLES Final Re sult documented in this encounter Visit Diagnoses Diagnosis Palpitations- Primary Pulmonary HTN (HCC) Frequent PVCs HTN (hypertension), benign Essential hypertension, benign KENZIE on CPAP Other chest pain documented in this encounter Historical Medications * This list may reflect changes made after this encounter. multivitamin tablet,chewable Take by mouth sertraline (ZOLOFT) 50 mg tablet Take 50 mg by mouth daily 09/24/2021 added in this encounter Care Teams Foundry Worker Apprentice Relationship Specialty Start Date End Date Kevin Vega MD [address] [place] [address] PCP - General Family Medicine 12/30/17 10/06/22 documented as of this encounter
--- OUTSIDE RECORDS SUMMARY | 2024-09-16 07:08 | XMS_ITS | Encounter Summary ---
Author Organization [facility] Address [address] [place] [address] Care Team Providers Care Otolaryngology Surgeon Name Role Phone Kevin Vega MD Primary Care Provider Encounter Details Date Type Department Care Team (Late st Contact Info) Description 06/30/2019 Telephone [facility] [address] [facility] [address] [place] [address] Isidoro Olvera MD [address] [facility] [address] [place] [address] Social History Tobacco Use Types Packs/Day Years Used Date Smoking Tobacco: Never Smokeless Tobacco: Never Alcohol Use Standard Drinks/Week Comments No 0 (1 standard drink = 0.6 oz pur e alcohol) Comments Unknown Sex and Gender Information Value Date Recorded Sex Assigned at Not on file 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 C/o increase in PVC and CP over last 2 weeks. States she is SOB even at rest, feels winded if she walks to the bathroom. Nauseated some. Muscle spasms all over. PCP instructed her to go to the ER. Appointment sched with ct for tomorrow. If symptoms worsen, or are distressing, proceed to the ER. During phone call, pt stating she is feeling worse and will likely go to the ER. Pt encouraged to go to the ER. * Telephone Encounter - Krystal Beard - 06/30/2019 12:01 PM CDT Pt reports she has been having increased PVCs and chest pain for the past 2 weeks. Muscle spasms from her head to her toes. Pt mentioned spouse told her the mask for her cpap is not sealing properly.Feeling very fatigued. [phone] documented in this encounter Plan of Treatment Not on file documented as of this encounter Visit Diagnoses Not on filedocumented in this encounter Care Teams Otolaryngology Surgeon Relationship Specialty Start Date End Date Kevin Vega MD [address] [place] [place] [address] PCP - General Family Medicine 12/30/17 10/06/22 documented as of this encounter
--- OUTSIDE RECORDS SUMMARY | 2024-09-16 07:08 | XMS_ITS | Encounter Summary ---
Author Organization [facility] Address [address] [facility] [address] [place] [address] Care Team Providers Care Distributor Operator Name Role Phone Kevin Vega MD Primary Care Provider [phone] Reason for Visit * Reason Comments Follow-up c/o CP, SOB,PVC's Encounter Details Date Type Department Care Team (Late st Contact Info) Description 07/01/2019 8:30 AM CDT Office Visit [facility] [address] [facility] [address] [id number] Chrissy Arango NP [address] [facility] [address] [facility] [address] [place] [address] Muscular chest pain (Primary Dx); Shortness of breath; Frequent PVCs; KENZIE on CPAP; History of migraine Social History Tobacco Use Types Packs/Day Years Used Date Smoking Tobacco: Never Smokeless Tobacco: Never Tobacco Cessation:Counseling Given: Yes Alcohol Use Standard Drinks/Week Comments No 0 (1 standard drink = 0.6 oz pur e alcohol) Comments Unknown Sex and Gender Information Value Date Recorded Sex Assigned at Not on file 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 Gender Identity Not on file Sexual Orientation Not on file documented as of this encounter Last Filed Vital Signs Vital Sign Reading Time Taken Comments Blood Pressure 124/82 07/01/2019 8:36 AM CDT Pulse 85 07/01/2019 8:36 AM CDT Temperature - - Respiratory Rate - - Oxygen Saturation 97% 07/01/2019 8:36 AM CDT Inhaled Oxygen Concentration - - Weight 122.8 kg (270 lb 12.8 oz) 07/01/2019 8:36 AM CDT Height 162.6 cm (5' 4 ) 07/01/2019 8:36 AM CDT Body Mass Index 46.48 07/01/2019 8:36 AM CDT documented in this encounter Progress Notes * Chrissy Arango NP - 07/01/2019 8:30 AM CDT [facility] Date of Visit: 07/01/2019 Patient ID: Araceli Cedeno 1985 Chief Complaint: Araceli Cedeno is a 34 y.o. female who is an established patient of Dr. Olvera here for follow-up after emergency room visit for chest pain. History of Present Illness: Araceli Cedeno is a 34 y.o. female [...] CPAP machine about 6 hours per night. Records that I personally reviewed on the day of this visit include: (the interpretation is outlined in the HPI above) 03/04/2019 office note from myself, 03/16/2019 echocardiogram report, 06/30/2019 [facility] emergency room record I have also reviewed: allergies, current medications, past family history, past medical history, past social history, past surgical history and problem list Review of Systems Constitution: Negative for diaphoresis, fever, malaise/fatigue, weight gain and weight loss. HENT: Negative for hearing loss. Eyes: Positive for visual disturbance. Cardiovascular: Positive for chest pain and palpitations. Negative for claudication, leg swelling, orthopnea, paroxysmal nocturnal dyspnea and syncope. Respiratory: Positive for shortness of breath and sleep disturbances due to breathing. Negative forcough, hemoptysis, snoring and wheezing. Hematologic/Lymphatic: Does not bruise/bleed easily. Skin: Positive for rash. Negative for poor wound healing. Musculoskeletal: Positive for joint pain and myalgias. Gastrointestinal: Positive for heartburn and nausea. Negative for vomiting. Genitourinary: Negative for hematuria. Neurological: Positive for dizziness and headaches. Negative for light-headedness. Psychiatric/Behavioral: Positive for depression. The patient is not nervous/anxious. Vital Signs: BP 124/82 (BP Location: Left arm, Patient Position: Sitting) Pulse 85 Ht 162.6 cm (5' 4 ) Wt 122.8 kg (270 lb 12.8 oz) SpO2 97% BMI 46.48 kg/m?? Physical Exam Constitutional: She is oriented to person, place, and time. She appears well- developed. No distress. Pleasant woman, appears fatigued, morbidly obese body habitus. HENT: Head: Normocephalic and atraumatic. Nose: Nose normal. Mouth/Throat: Mucous membranes are normal. Eyes: Pupils are equal, round, and reactive to light. Conjunctivae and EOM are normal. No scleral icterus. Neck: Normal range of motion. No JVD present. No tracheal deviation present. Cardiovascular: Normal rate, regular rhythm and normal heart sounds. Occasional extrasystoles are present. No murmur heard. Apical heart rate on exam was in the 80s Pulmonary/Chest: Effort normal and breath sounds normal. No respiratory distress. Abdominal: Soft. Bowel sounds are normal. There is no tenderness. Musculoskeletal: Normal range of motion. She exhibits no edema. Neurological: She is alert and oriented to person, place, and time. Skin: Skin is warm and dry. No rash noted. Psychiatric: She has a normal mood and affect. Allergies Allergen Reactions ??? Phenergan [Promethazine] Other (See comments) Panic attack Current Outpatient Medications: ??? ALPRAZolam (XANAX) 0.25 mg tablet, Take 0.25 mg by mouth 3 (three) times a day, Disp: , Rfl: ??? calcium citrate-vitamin D3 500 mg calcium -400 unit tablet,chewable, Take by mouth daily., Disp: , Rfl: ??? cholecalciferol (VITAMIN D-3) 2,000 unit capsule, Take 2,000 Units by mouth daily., Disp: , Rfl: ??? labetalol (NORMODYNE,TRANDATE) 200 mg tablet, TAKE 1 TABLET(200 MG) BY MOUTH TWICE DAILY, Disp:180 tablet, Rfl: 3 ??? loratadine (CLARITIN) 10 mg tablet, Take 10 mg by mouth daily., Disp: , Rfl: ??? magnesium oxide 500 mg capsule, Take by mouth daily., Disp: , Rfl: ??? pyridoxine, vitamin B6, 200 mg tablet extended release, Take by mouth. Take 1 tab po in the morning and 0.5 tab po in the evening, Disp: , Rfl: ??? SAVELLA 50 mg tablet, Take 50 mg by mouth 2 (two) times a day., Disp: , Rfl: 0 No results found for: POTASSIUM, BUNSER, CREATININE, CHOL, TRIG, LDL, LDLCALC, HDL Assessment: Diagnoses and all orders for this visit: Muscular chest pain (Primary) Shortness of breath Frequent PVCs KENZIE on CPAP History of migraine Plan/Recommendations: The chest pain she experienced yesterday sounded like muscular spasm. I gave her reassurance. She is having nonexertional shortness of breath during the day. This may be anxiety or could also be some seasonal allergies. I advised her to do some deep breathing if she feels stressed or anxious at work. She remains on labetalol for her history of PVCs. I did not hear many PVCs on exam today. Her ECG in the ER did not have any PVCs on that. I encouraged ongoing compliance with CPAP machine and it sounds like she is highly motivated to do this. She is going to follow up with her PCP about her symptoms as well. She has a history of migraines, and the visual disturbance, speech disturbance and foggy thoughts that she had yesterday could have been an atypical presentation of migraine. We will keep the previously scheduled office visit with Dr. Olvera later this month. LEIDA Bradford- Nurse Practitioner with [facility] This note is dictated and transcribed using [email or web address] Direct Software. Farrowing Manager variancesmay occur. Despite proofreading, typographical errors may occur. documented in this encounter Plan of Treatment Not on file documented as of this encounter Visit Diagnoses Diagnosis Muscular chest pain- Primary Shortness of breath Frequent PVCs KENZIE on CPAP History of migraine documented in this encounter Discontinued Medications Medication Sig Discontinue Reason Start Date End Da te fenugreek seed extract 500 mg capsule Take 2 capsules by mouth 2 (two) times a day. Therapy completed 07/01/2019 milk thistle 150 mg capsule Take by mouth daily. Therapy completed 9 lecithin, soy 400 mg capsule Take by mouth 2 (two) times a day. Therapy completed 07/01/2019 [id number] acid 29 mg iron- 1 mg tablet,chewable Take by mouth daily. Therapy completed 9 labetalol (NORMODYNE,TRANDATE) 200 mg tablet TAKE 1 TABLET(200 MG) BY MOUTH TWICE DAILY Duplicate order 05/13/2019 07/01/2019 sertraline (ZOLOFT) 50 mg tablet Take 50 mg by mouth daily. Therapy completed 07/01/2019 documented as of this encounter Historical Medications * This list may reflect changes made after this encounter. ALPRAZolam (XANAX) 0.25 mg tablet Take 0.25 mg by mouth 3 (three) times a day 06/30/2019 09/24/2021 added in this encounter Care Teams Distributor Operator Relationship Specialty Start Date End Date Kevin Vega MD [address] [place] [address] PCP - General Family Medicine 12/30/17 10/06/22 documented as of this encounter
--- OUTSIDE RECORDS SUMMARY | 2024-09-16 07:08 | XMS_ITS | Encounter Summary ---
Author Organization 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
--- OUTSIDE RECORDS SUMMARY | 2024-09-16 07:08 | XMS_ITS | Encounter Summary ---
Author Organization [facility] Address [address] [facility] [address] [place] [address] Care Team Providers Care Traffic Or System Dispatcher Name Role Phone Kevin Vega MD Primary Care Provider [phone] Encounter Details Date Type Department Care Team (Late st Contact Info) Description 03/18/2019 Telephone [facility] [address] [address] Chrissy Arango NP [address] [address] Social History Tobacco Use Types Packs/Day Years Used Date Smoking Tobacco: Never Smokeless Tobacco: Never Alcohol Use Standard Drinks/Week Comments No 0 (1 standard drink = 0.6 oz pur e alcohol) Comments Unknown Sex and Gender Information Value Date Recorded Sex Assigned at Not on file 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 Meza's message with her. She verbalizes understanding andis thankful for the good news. * Telephone Encounter - Krystal Beard - 03/22/2019 9:23 AM CDT Pt returned call. [phone] * Telephone Encounter - Deedee Olson RN - 03/18/2019 3:36 PM CDT ----- Message from Chrissy Arango NP sent at 03/18/2019 2:51 PM CDT ----- Please call her regarding Echo result: LV systolic function (heart's ability to squeeze / strength of heart): Normal - this is great news,it means the PVC's are not causing any problems with her heart's function. LV diastolic function (heart's ability to relax / stiffness of heart muscle): mildly abnormal, but unchanged from last echo Other: mild pulmonary hypertension (meaning high blood pressure in the lungs), this was also seen on her last echo, and is now slightly better, which means her CPAP machine is already helping! Both diastolic dysfunction and pulmonary hypertension are probably both results of her sleep apnea and being overweight. It's very important for her to keep using her CPAP machine (she recently started using one) and I also encourage her to make a plan for weight loss. If she wants help with that, I would be happy to discuss this with her at an office visit if she wants. Thank you. LM for pt to return call to office to discuss echo results and recommendations. documented in this encounter Plan of Treatment Not on file documented as of this encounter Visit Diagnoses Not on filedocumented in this encounter Care Teams Traffic Or System Dispatcher Relationship Specialty Start Date End Date Kevin Vega MD [address] [place] [address] PCP - General Family Medicine 12/30/17 10/06/22 documented as of this encounter
--- OUTSIDE RECORDS SUMMARY | 2024-09-16 07:09 | XMS_ITS | Encounter Summary ---
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
--- OUTSIDE RECORDS SUMMARY | 2024-09-16 07:09 | XMS_ITS | Encounter Summary ---
Author Organization [facility] Address [address] [place] [address] Care Team Providers Care Complaint Supervisor Name Role Phone Kevin Vega MD Primary Care Provider [phone] Reason for Visit * Diagnostic Imaging (Routine) - Closed Specialty Diagnoses / Procedures Referred By Contkay bridges Referred To Contact Cardiology Imaging Diagnoses Frequent PVCs Procedures Transthoracic Echo Complete W Doppler/CF Deon Arango NP Phone: tel: fax: [facility] Medical [facility] Cardiology [address] [facility] [address] [place] [phone] Phone: tel: fax: Referral ID Status Reason Start Date Expiration Date Visits Re quested Visits Authorized [id number] Closed 03/12/2019 04/26/2019 1 1 Encounter Details Date Type Department Care Team (Late st Contact Info) Description 03/16/2019 3:00 PM CDT Ancillary Procedure 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 Gender Identity Not on file Sexual Orientation Not on file documented as of this encounter Plan of Treatment Not on file documented as of this encounter Procedures Procedure Name Priority Date/Time Associated Diagnosis Comments TRANSTHORACIC ECHO (TTE) COMPLETE W DOPPLER/CF WO CONTRAST Routine 03/16/2019 4:04 PM CDT Frequent PVCs documented in this encounter Results * TRANSTHORACIC ECHO (TTE) COMPLETE W DOPPLER/CF WO CONTRAST (03/16/2019 4:04 PM CDT) Anatomical Region Laterality Modality Ultrasound 03/16/2019 2:56 PM CDT Narrative 03/16/2019 4:52 PM CDT [facility] [address] [facility] [address], [place] [address] [address] [facility] [address], [place] [address] P:[phone] P:[phone] Echocardiographic Report Patient Name: SUMMER PHILLIPS : 1985 Study Date: 03/16/2019 2:56:09 PM Gender: F Tech: Location: [place] Ref.Provider: JAYY Height(Cm): 163 BSA: 2.19 Weight(Kg): 118.84 Heart Rate: 99 BP: 107/53 Quality: Good Order Provider: DEON ARANGO Procedures: Echocardiographic Report: Transthoracic echocardiogram with complete 2D, M-Mode, and color Doppler examination. Indications: Palpitations, and Premature Ventricular Complexes. Measurements: 2D/M Mode ?Doppler ? Measurement ?Value ?Normal Range ? Measurement ?Value ?Normal Range ? EF Mod ? 71 ?AV Mean PG ? 7 ?mmHg ? EF MM ?74 ? [ 55 - 70 ] % ?AV Peak Jerry ?1.80 ? m/s ? LVIDd MM ? 4.67 ? [ 3.90 - 5.30 ] cm ? AV Peak PG ? 13 ? mmHg ? LVIDs MM ? 2.67 ? [ 2.30 - 3.90 ] cm ? AV VTI ? 0.37 ? cm ? LVPWd MM ? 1.13 ? [ 0.60 - 1.00 ] cm ? LVOT Peak Jerry ?1.01 ? [ 0.70 - 1.10 ] m/s ? IVSd MM ?1.20 ? [ 0.60 - 0.90 ] cm ? LVOT VTI ? 0.21 ? cm ? LA Dimension MM ?4.40 ? [ 2.70 - 3.80 ] cm ? MV E Peak Jerry ?0.73 ? [ 0.60 - 1.30 ] m/s ? AoR Diam MM ?3.13 ? [ 2.60 - 3.70 ] cm ? MV A Peak Jerry ?0.86 ? [ 0.40 - 0.80 ] m/s ? LA Volume Index ?24.00 ?[ 16.00 - 28.00 ] cc/m2 ?MV Decel Time ?253 ?[ 150 - 200 ] msec ? ACS MM ? 2.20 ? cm ? PV Peak Jerry ?1.18 ? [ 0.40 - 0.80 ] m/s ? TR Peak Jerry ?2.68 ? [ 0.40 - 0.80 ] m/s ? TR Peak PG ? 29 ? mmHg ? RVSP ? 37.00 ?mmHg ? E' ? 0.12 ? E/E' ? 6 ? Findings: Interpretation Site: Exam was interpreted at [facility]. Left Ventricle: Normal left ventricular systolic function. No focal wall motion abnormalities. Normal left ventricular size. Mild concentric left ventricular hypertrophy. Impaired diastolic relaxation Grade I. Ejection fraction is measured at 71 %. Right Ventricle: Normal right ventricular size. Normal right ventricular systolic function. Left Atrium: There is mild enlargement of left atrium. Right Atrium: The right atrium is normal in size. Atrial Septum: Normal atrial septum. Mitral Valve: Normal appearance of the mitral valve. Mild mitral valve regurgitation. Aortic Valve: Aortic valve not well visualized. No evidence of hemodynamically significant aortic stenosis by Doppler. Probable trileaflet aortic valve, although not all leaflets are visualized. No aortic regurgitation. Tricuspid Valve: Normal appearance of the tricuspid valve. Mild pulmonary hypertension based on right ventricular systolic pressure. Estimated peak RVSP is 37 mmHg. Mild tricuspid regurgitation. Pulmonic Valve: Pulmonic valve not well visualized. Trivial regurgitation in the pulmonic valve. Pericardium: Normal pericardium with no significant pericardial effusion. Aorta: Normal aortic root. No aortic root dilation. IVC: Normal size and normal respiratory collapse consistent with normal right atrial pressure (<5 mmHg). Conclusions: Normal left ventricular systolic function. No [...] have slightly improved. Normal sinus rhythm. PVCs. Electronically Signed By: Kain Olvera MD 2019-03-16 16:52:24 CDT Procedure Note Isidoro Olvera MD - 03/16/2019 [facility] [address] [facility] [address], [place] [address] [address] [facility] [id number], [place] [address] P:[phone] P:[phone] Echocardiographic Report Patient Name: SUMMER PHILLIPSPatient ID: [id number] : [id number] Date: 03/16/2019 2:56:09 PM Gender: FAccession #: [id number] Tech: GMLocation: [place] Ref.Provider: Getight(Cm): 163 BSA: 2.19Weight(Kg): 118.84 Heart Rate: 99BP: 107/53 Quality: GoodOrder Provider: DEON ARANGO Procedures: Echocardiographic Report: Transthoracic echocardiogram with complete 2D, M-Mode, and color Dopplerexamination. Indications: Palpitations, and Premature Ventricular Complexes. Measurements: 2D/M Mode Doppler Measurement Value Normal Range MeasurementValue Normal Range EF Mod 71 AV Mean PG 7mmHg EF MM 74 [ 55 - 70 ] % AV Peak Vel1.80 m/s LVIDd MM 4.67 [ 3.90 - 5.30 ] cm AV Peak PG 13mmHg LVIDs MM 2.67 [ 2.30 - 3.90 ] cm AV VTI0.37 cm LVPWd MM 1.13 [ 0.60 - 1.00 ] cm LVOT Peak Vel1.01 [ 0.70 - 1.10 ] m/s IVSd MM 1.20 [ 0.60 - 0.90 ] cm LVOT VTI0.21 cm LA Dimension MM 4.40 [ 2.70 - 3.80 ] cm MV E Peak Vel0.73 [ 0.60 - 1.30 ] m/s AoR Diam MM 3.13 [ 2.60 - 3.70 ] cm MV A Peak Vel0.86 [ 0.40 - 0.80 ] m/s LA Volume Index 24.00 [ 16.00 - 28.00 ] cc/m2 MV Decel [id number] [ 150 - 200 ] msec ACS MM 2.20 cm PV Peak Vel1.18 [ 0.40 - 0.80 ] m/s TR Peak Vel2.68 [ 0.40 - 0.80 ] m/s TR Peak PG 29mmHg RVSP37.00 mmHg E'0.12 E/E' 6 Findings: Interpretation Site: Exam was interpreted at [facility]. Left Ventricle: Normal left ventricular systolic function. No focal wall motionabnormalities. Normal left ventricular size. Mild concentric left ventricular hypertrophy.Impaired diastolic relaxation Grade I. Ejection fraction is measured at 71 %. Right Ventricle: Normal right ventricular size. Normal right ventricular systolicfunction. Left Atrium: There is mild enlargement of left atrium. Right Atrium: The right atrium is normal in size. Atrial Septum: Normal atrial septum. Mitral Valve: Normal appearance of the mitral valve. Mild mitral valve regurgitation. Aortic Valve: Aortic valve not well visualized. No evidence of hemodynamicallysignificant aortic stenosis by Doppler. Probable trileaflet aortic valve, although not allleaflets are visualized. No aortic regurgitation. Tricuspid Valve: Normal appearance of the tricuspid valve. Mild pulmonary hypertensionbased on right ventricular systolic pressure. Estimated peak RVSP is 37 mmHg. Mildtricuspid regurgitation. Pulmonic Valve: Pulmonic valve not well visualized. Trivial regurgitation in the pulmonicvalve. Pericardium: Normal pericardium with no significant pericardial effusion. Aorta: Normal aortic root. No aortic root dilation. IVC: Normal size and normal respiratory collapse consistent with normal rightatrial pressure (<5 mmHg). Conclusions: Normal left ventricular systolic function. No focal wall motionabnormalities. Normal left ventricular size. Mild concentric left ventricular hypertrophy.Impaired diastolic relaxation Grade I. Ejection fraction is measured at 71 %. There is mild enlargement of left atrium. Normal appearance of the mitral valve. Mild mitral valve regurgitation. Normal appearance of the tricuspid valve. Mild pulmonary hypertensionbased on right ventricular systolic pressure. Estimated peak RVSP is 37 mmHg. Mildtricuspid regurgitation. Compared with prior echo performed on 01/16/18, no significant changealthough pulmonary pressures have slightly improved. Normal sinus rhythm. PVCs. Electronically Signed By: Kain Olvera MD 2019-03-16 16:52:24 CDT us Deon Arango HOME COORDINATOR CV ECHO PROCEDURES Final Result documented in this encounter Visit Diagnoses Diagnosis Frequent PVCs documented in this encounter Care Teams Complaint Supervisor Relationship Specialty Start Date End Date Kevin Vega MD [address] [place] [address] PCP - General Family Medicine 12/30/17 10/06/22 documented as of this encounter
--- OUTSIDE RECORDS SUMMARY | 2024-09-16 07:10 | XMS_ITS | Encounter Summary ---
Author Organization [facility] Medical [facility] Address [address] [facility] [facility] [place] [address] Care Team Providers Care Director Of Security Name Role Phone Kevin Vega MD Primary Care Provider [phone] Reason for Referral * Diagnostic Imaging (Routine) - Closed Specialty Diagnoses / Procedures Referred By Contac cyrus Referred To Contact Cardiology Imaging Diagnoses Frequent PVCs Procedures Transthoracic Echo Complete W Doppler/CF Chrissy Arango NP Phone: tel: fax: [facility] Cardiology [address] [place] [phone] Phone: tel: fax: Referral ID Status Reason Start Date Expiration Date Visits Re quested Visits Authorized [id number] Closed 03/12/2019 04/26/2019 1 1 Reason for Visit * Reason Comments Follow-up 6 mo f/u Encounter Details Date Type Department Care Team (Late st Contact Info) Description 02/05/2019 3:00 PM CDT Office Visit [facility] [address] [place] [phone] Chrissy Arango NP [address] [place] [address] [place] [phone] Frequent PVCs (Primary Dx); HTN (hypertension), benign; KENZIE (obstructive sleep apnea); Lipid screening Social History Tobacco Use Types Packs/Day Years Used Date Smoking Tobacco: Never Smokeless Tobacco: Never Tobacco Cessation:Counseling Given: Yes Alcohol Use Standard Drinks/Week Comments No 0 (1 standard drink = 0.6 oz pur e alcohol) Comments Unknown Sex and Gender Information Value Date Recorded Sex Assigned at Not on file 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 Gender Identity Not on file Sexual Orientation Not on file documented as of this encounter Last Filed Vital Signs Vital Sign Reading Time Taken Comments Blood Pressure 108/60 02/05/2019 3:51 PM CDT Pulse 60 02/05/2019 3:51 PM CDT Temperature - - Respiratory Rate - - Oxygen Saturation 98% 02/05/2019 3:13 PM CDT Inhaled Oxygen Concentration - - Weight 115.7 kg (255 lb) 02/05/2019 3:13 PM CDT Height 162.6 cm (5' 4 ) 02/05/2019 3:13 PM CDT Body Mass Index 43.77 02/05/2019 3:13 PM CDT documented in this encounter Progress Notes * Chrissy Arango NP - 02/05/2019 3:00 PM CDT [facility] Date of Visit: 02/05/2019 Patient ID: Summer Phillips 1985 Chief Complaint: Summer Phillips is a 33 y.o. female who is an established patient of Dr. Olvera here for follow-up her hypertension and PVCs. History of Present Illness: Summer Phillips is a 33 y.o. female with a PMHx of anxiety/depression, [...] about to start using a CPAP machine. Records that I personally reviewed on the day of this visit include: (the interpretation is outlined in the HPI above) 05/25/[address] Olvera, 12/23/2018 sleep study report I have also reviewed: allergies, current medications, past family history, past medical history, past social history, past surgical history and problem list Review of Systems Constitution: Positive for malaise/fatigue. Negative for diaphoresis, fever, weight gain and weightloss. HENT: Negative for hearing loss. Eyes: Negative for visual disturbance. Cardiovascular: Positive for chest pain, leg swelling and palpitations. Negative for claudication, orthopnea, paroxysmal nocturnal dyspnea and syncope. Respiratory: Positive for shortness of breath. Negative for cough, hemoptysis, snoring and wheezing. Hematologic/Lymphatic: Does not bruise/bleed easily. Skin: Positive for rash. Negative for poor wound healing. Musculoskeletal: Positive for joint pain and myalgias. Gastrointestinal: Positive for heartburn and nausea. Negative for vomiting. Genitourinary: Negative for hematuria. Neurological: Positive for dizziness and headaches. Negative for light-headedness. Psychiatric/Behavioral: Negative for depression. The patient is not nervous/anxious. Vital Signs: BP 108/60 (BP Location: Left arm, Patient Position: Sitting) Pulse 60 Ht 162.6 cm (5' 4 ) Wt 115.7 kg (255 lb) SpO2 98% BMI 43.77 kg/m?? Physical Exam Constitutional: She is oriented to person, place, and time. She appears well- developed. No distress. Morbidly obese HENT: Head: Normocephalic and atraumatic. Nose: Nose normal. Mouth/Throat: Mucous membranes are normal. Eyes: Pupils are equal, round, and reactive to light. Conjunctivae and EOM are normal. No scleral icterus. Neck: Normal range of motion. No JVD present. No tracheal deviation present. Cardiovascular: Normal rate, regular rhythm and normal heart sounds. Frequent extrasystoles are present. No murmur heard. Pulmonary/Chest: Effort normal and breath sounds normal. No respiratory distress. Abdominal: Soft. Bowel sounds are normal. There is no tenderness. Musculoskeletal: Normal range of motion. She exhibits no edema. Neurological: She is alert and oriented to person, place, and time. Skin: Skin is warm and dry. Rash noted. Psychiatric: She has a normal mood and affect. Allergies Allergen Reactions ??? Phenergan [Promethazine] Other (See comments) Panic attack Current Outpatient Medications: ??? calcium citrate-vitamin D3 500 mg calcium -400 unit tablet,chewable, Take by mouth daily., Disp: , Rfl: ??? cholecalciferol (VITAMIN D-3) 2,000 unit capsule, Take 2,000 Units by mouth daily., Disp: , Rfl: ??? fenugreek seed extract 500 mg capsule, Take 2 capsules by mouth 2 (two) times a day., Disp: , Rfl: ??? labetalol (NORMODYNE,TRANDATE) 200 mg tablet, TAKE 1 TABLET(200 MG) BY MOUTH TWICE DAILY, Disp:180 tablet, Rfl: 0 ??? lecithin, soy 400 mg capsule, Take by mouth 2 (two) times a day., Disp: , Rfl: ??? loratadine (CLARITIN) 10 mg tablet, Take 10 mg by mouth daily., Disp: , Rfl: ??? magnesium oxide 500 mg capsule, Take by mouth daily., Disp: , Rfl: ??? milk thistle 150 mg capsule, Take by mouth daily., Disp: , Rfl: ??? li311-kouc-meucs acid 29 mg iron- 1 mg tablet,chewable, Take by mouth daily., Disp: , Rfl: ??? pyridoxine, vitamin B6, 200 mg tablet extended release, Take by mouth. Take 1 tab po in the morning and 0.5 tab po in the evening, Disp: , Rfl: ??? SAVELLA 50 mg tablet, Take 50 mg by mouth 2 (two) times a day., Disp: , Rfl: 0 ??? sertraline (ZOLOFT) 50 mg tablet, Take 50 mg by mouth daily., Disp: , Rfl: No results found for: POTASSIUM, BUNSER, CREATININE, CHOL, TRIG, LDL, LDLCALC, HDL Assessment: Diagnoses and all orders for this visit: Frequent PVCs (Primary) - Transthoracic Echo Complete W Doppler/CF; Future HTN (hypertension), benign KENZIE (obstructive sleep apnea) Plan/Recommendations: She still has frequent PVCs on exam. Symptomatically though, she feels the same. Continue labetaloland we will plan to repeat an echo prior to her next follow- up appointment. Initial blood pressure check in the office was mildly hypotensive, but then normotensive when reachchecked. I advised her if she continues to get hypotensive readings at other doctor's appointments,let us know. I strongly encouraged her to be compliant with the CPAP when she begins using it and explained thatthis can have cardiac benefits as well. Return to the office to see Dr. Olvera in 3 months, and she will get the echo a few days before that appointment. Call us sooner with questions or concerns. For the rash and the gastrointestinal complaints, I advised her to follow up with her PCP as soon as possible. Chrissy Arango, ANP- Nurse Practitioner with [facility] This note is dictated and transcribed using Lens[employer] Direct Software. Sales And Marketing Director variancesmay occur. Despite proofreading, typographical errors may occur. Cosigned by Isidoro Olvera MD at 02/05/2019 4:50 PM CDT documented in this encounter Miscellaneous Notes * Addendum Note - Arielle Mar MA - 02/05/2019 3:00 PM CDTAddended by: ARIELLE MAR on: 02/12/2019 11:27 AM Modules accepted: Orders documented in this encounter Plan of Treatment Not on file documented as of this encounter Procedures Procedure Name Priority Date/Time Associated Diagnosis Comments POCT LIPID PANEL Routine 02/12/2019 11:2 8 AM CDT Lipid screening documented in this encounter Results * TRANSTHORACIC ECHO (TTE) COMPLETE W DOPPLER/CF WO CONTRAST (03/16/2019 4:04 PM CDT) Anatomical Region Laterality Modality Ultrasound 03/16/2019 2:56 PM CDT Narrative 03/16/2019 4:52 PM CDT [facility], [place] [address] [address] [facility] [address], [place] [address] P:[phone] P:[phone] Echocardiographic Report Patient Name: SUMMER PHILLIPS : 1985 Study Date: 03/16/2019 2:56:09 PM Gender: F Tech: Location: [place] Ref.Provider: JAYY Height(Cm): 163 BSA: 2.19 Weight(Kg): 118.84 Heart Rate: 99 BP: 107/53 Quality: Good Order Provider: CHRISSY ARANGO Procedures: Echocardiographic Report: Transthoracic echocardiogram with [...] Findings: Interpretation Site: Exam was interpreted at [facility]. Left Ventricle: Normal left ventricular systolic function. [...] - 03/16/2019 [facility] [address] [facility] [address] [address] [address] [facility] [id number], [place] [address] P:[phone] P:[phone] Echocardiographic Report Patient Name: SUMMER PHILLIPSPatient ID: [id number] : [id number] Date: 03/16/2019 2:56:09 PM Gender: FAccession #: [id number] Tech: GMLocation: [place] Ref.Provider: Zak(Cm): 163 BSA: 2.19Weight(Kg): 118.84 Heart Rate: 99BP: 107/53 Quality: GoodOrder Provider: CHRISSY ARANGO Procedures: Echocardiographic Report: Transthoracic echocardiogram with [...] 16.00 - 28.00 ] cc/m2 MV Decel [id number] [ 150 - 200 ] msec ACS MM 2.20 cm PV Peak Vel1.18 [ 0.40 - 0.80 ] m/s TR Peak Vel2.68 [ 0.40 - 0.80 ] m/s TR Peak PG 29mmHg RVSP37.00 mmHg E'0.12 E/E' 6 Findings: Interpretation Site: Exam was interpreted at [facility]. Left Ventricle: Normal left ventricular systolic function. [...] By: Kain Olvera MD 2019-03-16 16:52:24 CDT Chrissy Arango NP CV ECHO PROCEDURES Final Result * POCT lipid panel (02/12/2019 11:28 AM CDT) Cholesterol, POC 211 mg/dL HDL, POC 37 mg/dL Triglycerides, POC 274 mg/dL LDL Cholesterol POC 119 mg/dL Chol/HDL Ratio, POC 5.7 Non-HDL Cholesterol, POC 174 mg/dL Cholesterol Total, POC 211 mg/dL Blood specimen (specimen) 02/12/2019 11:28 AM CDT Chrissy Arango NP POINT OF CARE TEST ORDERA BLES Final Result documented in this encounter Visit Diagnoses Diagnosis Frequent PVCs- Primary HTN (hypertension), benign Essential hypertension, benign KENZIE (obstructive sleep apnea) Obstructive sleep apnea (adult) (pediatric) Lipid screening Screening for lipoid disorders Frequent PVCs documented in this encounter Care Teams Director Of Security Relationship Specialty Start Date End Date Keivn Vega MD [address] [place] [address] PCP - General Family Medicine 12/30/17 10/06/22 documented as of this encounter
--- OUTSIDE RECORDS SUMMARY | 2024-09-16 07:10 | XMS_ITS | Encounter Summary ---
Author Organization [facility] Medical [facility] Address [address] [facility] [address] [place] [address] Care Team Providers Care Experimental Flight Test Mechanic Name Role Phone Kevin Vega MD Primary Care Provider [phone] Encounter Details Date Type Department Care Team (Late st Contact Info) Description 02/12/2019 Telephone [facility] [address] [facility] [address] [place] [address] Isidoro Olvera MD [address] [facility] [address] [place] [address] Social History Tobacco Use Types Packs/Day Years Used Date Smoking Tobacco: Never Smokeless Tobacco: Never Alcohol Use Standard Drinks/Week Comments No 0 (1 standard drink = 0.6 oz pur e alcohol) Comments Unknown Sex and Gender Information Value Date Recorded Sex Assigned at Not on file 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 We both agreed that the patient should remain on her labetalol at the same dose to control her symptomatic PVCs, and the heart rate reading on the EKG is the reliable reading. * Telephone Encounter - Caroline Morris RN - 02/12/2019 9:[address] Vega office, they know pt was seen recently here. They wanted us to know that pt wasin yesterday and had EKG which showed ventricular bigeminy. They said heart rate was initially 48, then 44 bpm. Heart rate noted on EKG shows 61 bpm. They were considering reducing beta rob due to low heart rate, but did not due to PVC burden. Faxed recent office note to PCP office for their review. Will haveChristine review and comment * Telephone Encounter - Krystal Beard - 02/12/2019 8:55 AM CDT Nurse Lovely called from Gary's office regarding pt. Pt was in their office yesterday and had an ekg. Ekg is being faxwed over. Lovely wants a call back to go over appt information. Said pt was having frequent pvc's and bp and pulse was low. cb [phone] documented in this encounter Plan of Treatment Not on file documented as of this encounter Visit Diagnoses Not on filedocumented in this encounter Care Teams Experimental Flight Test Mechanic Relationship Specialty Start Date End Date Kevin Vega MD [address] [place] [address] PCP - General Family Medicine 12/30/17 10/06/22 documented as of this encounter
--- OUTSIDE RECORDS SUMMARY | 2024-09-16 07:10 | XMS_ITS | Encounter Summary ---
Author Organization 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
--- OUTSIDE RECORDS SUMMARY | 2024-09-16 07:10 | XMS_ITS | Encounter Summary ---
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
--- OUTSIDE RECORDS SUMMARY | 2024-09-16 07:10 | XMS_ITS | Encounter Summary ---
Author Organization [facility] Address [address] [facility] [address] [place] [address] Care Team Providers Care Streetcar Operator Name Role Phone Kevin Vega MD Primary Care Provider [phone] Encounter Details Date Type Department Care Team (Late st Contact Info) Description 02/16/2019 Orders Only [facility] Health Information Management [address] [place] [address] Scanning, Provider Social History Tobacco Use Types Packs/Day Years Used Date Smoking Tobacco: Never Smokeless Tobacco: Never Alcohol Use Standard Drinks/Week Comments No 0 (1 standard drink = 0.6 oz pur e alcohol) Comments Unknown Sex and Gender Information Value Date Recorded Sex Assigned at Not on file 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 Gender Identity Not on file Sexual Orientation [...] Date/Time Associated Diagnosis Comments SCAN - LABS 02/16/2019 SCAN - RADIOLOGY/IMAGING 02/15/2019 documented in this encounter Results * SCAN - LABS (02/16/2019) us Provider Scanning Final Result * SCAN - RADIOLOGY/IMAGING (02/15/2019) Anatomical Region Laterality Modality Other us Provider Scanning Edited Result - Final documented in this encounter Visit Diagnoses Not on filedocumented in this encounter Care Teams Streetcar Operator Relationship Specialty Start Date End Date Kevin Vega MD [address] [place] [address] PCP - General Family Medicine 12/30/17 10/06/22 documented as of this encounter
--- OUTSIDE RECORDS SUMMARY | 2024-09-16 07:10 | XMS_ITS | Encounter Summary ---
Author Organization [facility] Address [address] [facility] [address] [place] [address] Care Team Providers Care International Recruiter Name Role Phone Kevin Vega MD Primary Care Provider [phone] Reason for Visit * Reason Comments Hospital Follow Up SOB, dizziness,heada ches, swelling in legs, chest pain Encounter Details Date Type Department Care Team (Late st Contact Info) Description 03/04/2019 3:30 PM CDT Office Visit [facility] [address] [facility] [address] [address] Chrissy Arango NP [address] [address] [place] [address] Frequent PVCs (Primary Dx); Essential hypertension; Stress at work; KENZIE on CPAP Social History Tobacco Use Types Packs/Day Years Used Date Smoking Tobacco: Never Smokeless Tobacco: Never Tobacco Cessation:Counseling Given: Yes Alcohol Use Standard Drinks/Week Comments No 0 (1 standard drink = 0.6 oz pur e alcohol) Comments Unknown Sex and Gender Information Value Date Recorded Sex Assigned at Not on file 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 Gender Identity Not on file Sexual Orientation Not on file documented as of this encounter Last Filed Vital Signs Vital Sign Reading Time Taken Comments Blood Pressure 110/84 03/04/2019 3:36 PM CDT Pulse 38 03/04/2019 3:36 PM CDT Temperature - - Respiratory Rate - - Oxygen Saturation 97% 03/04/2019 3:36 PM CDT Inhaled Oxygen Concentration - - Weight 119.2 kg (262 lb 11.2 oz) 03/04/2019 3:36 PM CDT Height 162.6 cm (5' 4 ) 03/04/2019 3:36 PM CDT Body Mass Index 45.09 03/04/2019 3:36 PM CDT documented in this encounter Progress Notes * Chrissy Arango NP - 03/04/2019 3:30 PM CDT [facility] Date of Visit: 03/04/2019 Patient ID: Araceli Cedeno 1985 Chief Complaint: Araceli Cedeno is a 33 y.o. female who is an established patient of Dr. Olvera here for follow-up after emergency room visit for headache, dizziness and chest pain. History of Present Illness: Araceli Cedeno is a 33 y.o. female with a [...] gained weight and admits to ???stress eating.?? Records that I personally reviewed on the day of this visit include: (the interpretation is outlined in the HPI above) 05/25/[address] Olvrea, 12/23/2018 sleep study report I have also reviewed: allergies, current medications, past family history, past medical history, past social history, past surgical history and problem list Review of Systems Constitution: Positive for diaphoresis, malaise/fatigue and weight gain. Negative for fever and weight loss. HENT: Negative for hearing loss. Eyes: Negative [...] patient is not nervous/anxious. Vital Signs: BP 110/84 (BP Location: Left arm, Patient Position: Sitting) Pulse (!) 38 Ht 162.6 cm (5' 4 ) Wt 119.2 kg (262 lb 11.2 oz) SpO2 97% BMI 45.09 kg/m?? Physical Exam Constitutional: She is oriented [...] Frequent extrasystoles are present. No murmur heard. Apical [...] by mouth daily., Disp: , Rfl: ??? [id number] acid 29 mg iron- 1 mg tablet,chewable, [...] orders for this visit: Frequent PVCs (Primary) Essential hypertension Stress at work KENZIE on CPAP Plan/Recommendations: Some recent heart rate readings have been in the 40s but others have been in the 80s and 90s. We discussed reducing the labetalol: In the past she did take 100 mg b.i.d. But felt like her PVCs were not as well controlled on that dose, and also that her blood pressure was not as well controlled on the dose either. It seems more likely that her somatic complaints are related to increased stress at work, and possibly also some sleep deprivation with having a baby. Therefore, I advised her to remain on the higher dose of labetalol 200 mg b.i.d.. And we will bring her back sooner for the echo to make sure that her LV function remains normal. I strongly encouraged her to be compliant with the CPAP. If she wakes up in the night with her baby, put a pack OM before going back to sleep. We will keep the previously scheduled office visit with Dr. Olvera in April, but if the echo shows abnormality we will bring her back for follow-up sooner. Patient agreed to this plan. LEIDA Bradford- Nurse Practitioner with [facility] This note is dictated and transcribed using Mobile Active Defense Direct Software. Paintings Restorer variancesmay occur. Despite proofreading, typographical errors may occur. documented in this encounter Plan of Treatment Not on file documented as of this encounter Visit Diagnoses Diagnosis Frequent PVCs- Primary Essential hypertension Unspecified essential hypertension Stress at work Other occupational circumstances or maladjustment KENZIE on CPAP documented in this encounter Care Teams International Recruiter Relationship Specialty Start Date End Date Kevin Vega MD [address] [place] [address] PCP - General Family Medicine 12/30/17 10/06/22 documented as of this encounter
--- OUTSIDE RECORDS SUMMARY | 2024-09-16 07:11 | XMS_ITS | Encounter Summary ---
Author Organization [facility] Medical [facility] Address [address] [facility] [address] [place] [address] Care Team Providers Care Animal Rides Manager Name Role Phone Kevin Vega MD Primary Care Provider [phone] Reason for Visit * Reason Comments Follow-up 3 mo follow up on PV C's, HTN, palps, QT prolongation, tachy Encounter Details Date Type Department Care Team (Late st Contact Info) Description 05/25/2018 9:00 AM CDT Office Visit [facility] [address] [facility] 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 Gender Identity Not on file Sexual Orientation Not on file documented as of this encounter Last Filed Vital Signs Vital Sign Reading Time Taken Comments Blood Pressure 114/74 05/25/2018 9:18 AM CDT Pulse 75 05/25/2018 9:18 AM CDT Temperature - - Respiratory Rate - - Oxygen Saturation 98% 05/25/2018 9:18 AM CDT Inhaled Oxygen Concentration - - Weight 106.6 kg (235 lb) 05/25/2018 9:18 AM CDT Height 162.6 cm (5' 4 ) 05/25/2018 9:18 AM CDT Body Mass Index 40.34 05/25/2018 9:18 AM CDT documented in this encounter Progress Notes * Isidoro Olvera MD - 05/25/2018 9:00 AM CDT [facility] DATE OF VISIT: 05/25/2018 CHIEF COMPLAINT Chief Complaint Patient presents with ??? Follow-up 3 mo follow up on PVC's, HTN, palps, QT prolongation, tachy ASSESSMENT Diagnoses and all orders for this visit: HTN (hypertension), benign (Primary) Frequent PVCs Morbid obesity with BMI of 40.0-44.9, adult (CMS/HCC) Pulmonary HTN (CMS/HCC) Palpitations QT prolongation PLAN/RECOMMENDATIONS 1. Cont Labetolol for now, palps controlled but use primarily for BP control at present. 2. BP controlled on Labetolol, palps much improved. No change at this time as may risk greater symptomatic hypotension. Monitor BP on routine basis. Call with readings. Continue consistent cardiovascular exercise, weight loss, medication compliance, and low-sodium diet. 3. Caution with ambulation, rise slowly from seated position to minimize risk for falls and injuries. 4. 2D echo personally reviewed EF normal, mild LVH, mild PHTN RVSP 40mmHg. Cause of elevated pulmonary pressures unclear, but not a normal consequence of . Repeat 2D echo in the next few months or sooner if any new concerns or sxs. 5. Pt is not in decompensated HF. 6. QTc interval normal after starting Sertraline. Repeat 12 lead EKG in 1-2 months prior to starting more directed exercises. Over 50% of this visit counseling PVC's, tachycardia, palpitations, HTN, lipids, medications, lifestyle modification. Follow up in the office in 6 months or sooner as needed. Thank you for allowing me the privilege of participating in the care this very pleasant patient. Please do not hesitate to contact me with any additional questions or concerns. HPI Araceli Cedeno is a 33 y.o. female [...] Sertraline, EKG in office QTc interval stable. MEDICAL HISTORY Past Medical History: Diagnosis Date ??? Acid indigestion ??? Allergic rhinitis ??? Anxiety ??? Bladder infection ??? Cardiac rhythm disturbance ??? Depression ??? Hypertension ??? Overweight ??? Sinusitis Social History Substance Use Topics ??? Smoking status: Never Smoker ??? Smokeless tobacco: Never Used ??? Alcohol use No History reviewed. No pertinent family history. MEDICATIONS HOME MEDICATIONS : calcium citrate-vitamin D3 500 mg calcium -400 unit tablet,chewable cholecalciferol (VITAMIN D-3) 2,000 unit capsule fenugreek seed extract 500 mg capsule labetalol (NORMODYNE,TRANDATE) 200 mg tablet lecithin, soy 400 mg capsule loratadine (CLARITIN) 10 mg tablet magnesium oxide 500 mg capsule milk thistle 150 mg capsule [id number]-[id number] acid 29 mg iron- 1 mg tablet,chewable pyridoxine, vitamin B6, 200 mg tablet extended release SAVELLA 50 mg tablet sertraline (ZOLOFT) 50 mg tablet famotidine (PEPCID) 20 mg tablet PNV 16-iron fum,[id number] 35-1-200 mg capsule ALLERGIES Allergies Allergen Reactions ??? Phenergan [Promethazine] Other (See comments) Panic attack REVIEW OF SYSTEMS Review of Systems Constitution: Positive for weight loss. Negative for decreased appetite, diaphoresis, fever, weakness, malaise/fatigue and night sweats. HENT: Negative for [...] excessive daytime sleepiness, dizziness, focal weakness, headaches, light-headedness and loss of balance. Psychiatric/Behavioral: Negative for altered mental status, depression and memory loss. The patientis not nervous/anxious. Allergic/Immunologic: Negative for environmental allergies. PHYSICAL EXAM Vitals BP 114/74 (BP Location: Right arm, Patient Position: Sitting) Pulse 75 Ht 162.6 cm (5' 4 ) Wt 106.6 kg (235 lb) SpO2 98% BMI 40.34 kg/m?? Weight: 106.6 kg (235 lb) Height: 162.6 cm (5' 4 ) Body mass index is 40.34 kg/m??. Physical Exam Constitutional: She is oriented [...] of 2/6 at the upper left sternal border Pulmonary/Chest: Effort normal and breath sounds normal. No respiratory distress. She has no wheezes. She has no rales. She exhibits no tenderness. Abdominal: Soft. Bowel sounds are normal. She exhibits no distension and no mass. There is no tenderness. There is no rebound and no guarding. Obese and gravid Musculoskeletal: Normal range of motion. She exhibits no edema, tenderness or deformity. Lymphadenopathy: She has no cervical adenopathy. Neurological: [...] visit with results is: Office Visit on 12/30/2017 Component Date Value Ref Range Status ??? Cholesterol, POC 12/30/2017 217 mg/dL Final ??? HDL, POC 12/30/2017 72 mg/dL Final ??? Triglycerides, POC 12/30/2017 261 mg/dL Final ??? LDL, Direct, POC 12/30/2017 93 mg/dL Final ??? Chol/HDL Ratio, POC 12/30/2017 3.0 Final ??? Non-HDL Cholesterol, POC 12/30/2017 145 mg/dL Final ??? Cholesterol Total, POC 12/30/2017 217 mg/dL Final Results for orders placed or performed in visit on 12/30/17 POCT lipid panel Result Value Ref Range Cholesterol, POC 217 mg/dL HDL, POC 72 mg/dL Triglycerides, POC 261 mg/dL LDL, Direct, POC 93 mg/dL Chol/HDL Ratio, POC 3.0 Non-HDL Cholesterol, POC 145 mg/dL Cholesterol Total, POC 217 mg/dL Personally reviewed EKG, Echocardiogram, stress test, and bloodwork/lipids. Kain Olvera MD, FACC documented in this encounter Plan of Treatment Not on file documented as of this encounter Visit Diagnoses Diagnosis HTN (hypertension), benign- Primary Essential hypertension, benign Frequent PVCs Morbid obesity with BMI of 40.0-44.9, adult (HCC) Pulmonary HTN (HCC) Palpitations QT prolongation documented in this encounter Discontinued Medications Medication Sig Discontinue Reason Start Date End Da te famotidine (PEPCID) 20 mg tablet Take 20 mg by mouth 2 (two) times a day. Discontinued by another clinician 05/25/2018 PNV 16-iron fum,[id number] 35-1-200 mg capsule Take by mouth daily. Discontinued by another clinician 05/25/2018 documented as of this encounter Historical Medications * This list may reflect changes made after this encounter. [id number]-[id number] acid 29 mg iron- 1 mg tablet,chewable Take by mouth daily. 07/01/2019 fenugreek seed extract 500 mg capsule Take 2 capsules by mouth 2 (two) times a day. 07/01/2019 lecithin, soy 400 mg capsule Take by mouth 2 (two) times a day. 07/01/2019 milk thistle 150 mg capsule Take by mouth daily. 07/01/2019 sertraline (ZOLOFT) 50 mg tablet Take 50 mg by mouth daily. 07/01/2019 added in this encounter Care Teams Animal Rides Manager Relationship Specialty Start Date End Date Kevin Vega MD [address] [place] [address] PCP - General Family Medicine 12/30/17 10/06/22 documented as of this encounter
--- OUTSIDE RECORDS SUMMARY | 2024-09-16 07:11 | XMS_ITS | Encounter Summary ---
Author Organization [facility] Address [address] [facility] [address] [place] [address] Care Team Providers Care Document Review Attorney Name Role Phone Kevin Vega MD Primary Care Provider [phone] Encounter Details Date Type Department Care Team (Late st Contact Info) Description 06/29/2018 Telephone [facility] [address] [facility] [address], [place] [address] Isidoro Olvera MD [address] [facility] [address] [place] [address] Social History Tobacco Use Types Packs/Day Years Used Date Smoking Tobacco: Never Smokeless Tobacco: Never Alcohol Use Standard Drinks/Week Comments No 0 (1 standard drink = 0.6 oz pur e alcohol) Comments Unknown Sex and Gender Information Value Date Recorded Sex Assigned at Not on file 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 Scheduled EKG on 07/03/[address] Toledo last office note. * Telephone Encounter - Krystal Beard - 06/30/2018 8:55 AM CDT Pt returned call. Said it is fine to leave a detailed message. cb [phone] * Telephone Encounter - Caroline Morris RN - 06/29/2018 2:01 PM CDT LMTC * Telephone Encounter - Kimberly Redman - 06/29/2018 1:27 PM CDT Pt will like a call back regarding EKG, pt call back [phone] documented in this encounter Plan of Treatment Not on file documented as of this encounter Visit Diagnoses Not on filedocumented in this encounter Care Teams Document Review Attorney Relationship Specialty Start Date End Date Kvein Vega MD [address] [place] [address] PCP - General Family Medicine 12/30/17 10/06/22 documented as of this encounter
--- OUTSIDE RECORDS SUMMARY | 2024-09-16 07:11 | XMS_ITS | Encounter Summary ---
Author Organization [facility] Address [address] [facility] [address] [place] [address] Care Team Providers Care Sewer And Drain Technician Name Role Phone Kevin Vega MD Primary Care Provider [phone] Encounter Details Date Type Department Care Team (Late st Contact Info) Description 09/01/2018 Telephone [facility] [address] [facility] [address] [address] Isidoro Olvera MD [address] [facility] [address] [place] [address] Social History Tobacco Use Types Packs/Day Years Used Date Smoking Tobacco: Never Smokeless Tobacco: Never Alcohol Use Standard Drinks/Week Comments No 0 (1 standard drink = 0.6 oz pur e alcohol) Comments Unknown Sex and Gender Information Value Date Recorded Sex Assigned at Not on file 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:55 AM HAND PATCHER Gender Identity Not on file Sexual Orientation Not on file documented as of this encounter Miscellaneous Notes * Telephone Encounter - Caroline Morris RN - 09/01/2018 1:23 PM HAND PATCHER spoke with pt, she said she had mastitis, was treated with 2 coursed of antibiotics which are now finished. She now has a fungal infection on her breast nipples and is using a topical ointment for that. Pt thinks she is having more frequent PVCs and some intermittent SOB. Offered to have pt come in for 48 hour Holter, but she said she thinks she will call PCP to see if maybe she is getting a cold and that's why she has some SOB. She said the CP she gets is sharp and lasts for a second or two. Told her likely non-cardiac. Pt will call back if she decides to get a monitor placed. PATCHER * Telephone Encounter - Krystal Beard - 09/01/2018 11:58 AM CST Pt reports she has been experiencing increased breathlessness when getting up and moving around. Pain under left breast that goes down into her ribs. Occasionally pain across her chest. Feeling nauseated. Started about a week and a half ago but is happening more frequently. Said people in her household have colds. [phone] PATCHER documented in this encounter Plan of Treatment Not on file documented as of this encounter Visit Diagnoses Not on filedocumented in this encounter Care Teams Sewer And Drain Technician Relationship Specialty Start Date End Date Kevin Vega MD [address] [place] [address] PCP - General Family Medicine 12/30/17 10/06/22 documented as of this encounter
--- OUTSIDE RECORDS SUMMARY | 2024-09-16 07:11 | XMS_ITS | Encounter Summary ---
Author Organization [facility] Address [address] [facility] [address] [place] [address] Care Team Providers Care Head Of Stock Name Role Phone Kevin Vega MD Primary Care Provider [phone] Encounter Details Date Type Department Care Team (Late st Contact Info) Description 05/06/2018 Telephone [facility] [address] [facility] [address], [place] [address] Isidoro Olvera MD [address] [facility] [address] [place] [address] Social History Tobacco Use Types Packs/Day Years Used Date Smoking Tobacco: Never Smokeless Tobacco: Never Alcohol Use Standard Drinks/Week Comments No 0 (1 standard drink = 0.6 oz pur e alcohol) Comments Unknown Sex and Gender Information Value Date Recorded Sex Assigned at Not on file 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:55 AM DIRECTOR LEARNING AND DEVELOPMENT Gender Identity Not on file Sexual Orientation Not on file documented as of this encounter Ordered Prescriptions Prescription Sig Dispense Quantity Refills Last Filled Start Date End Date labetalol (NORMODYNE,TRANDAT E) 200 mg tablet Take 1 tablet (200 mg total) by mouth 2 (two) times a day. 60 tablet 6 05/06/2018 12/16/2018 documented in this encounter Miscellaneous Notes * Telephone Encounter - Justine Duggan RN - 05/06/2018 12:26 PM CDT Rx sent as requested. * Telephone Encounter - Kimberly Pyle - 05/06/2018 11:37 AM CDT Pt calling to see if Dr. Culp will refill her labetalol, Dr. Rice originally wrote the prescription. Pt will like the prescription to be sent to [facility] [phone] documented in this encounter Plan of Treatment Not on file documented as of this encounter Visit Diagnoses Not on filedocumented in this encounter Discontinued Medications Medication Sig Discontinue Reason Start Date End Da te labetalol (NORMODYNE,TRANDATE) 200 mg tablet Take 200 mg by mouth 2 (two) times a day. Reorder 05/06/2018 documented as of this encounter Care Teams Head Of Stock Relationship Specialty Start Date End Date Kevin Vega MD [address] [place] [address] PCP - General Family Medicine 12/30/17 10/06/22 documented as of this encounter
--- OUTSIDE RECORDS SUMMARY | 2024-09-16 07:11 | XMS_ITS | Encounter Summary ---
Author Organization [facility] Address [address] [place] [address] Care Team Providers Care Circuit Board Repair Technician Name Role Phone Kevin Vega MD Primary Care Provider [phone] Encounter Details Date Type Department Care Team (Late st Contact Info) Description 07/03/2018 2:30 PM CDT Office Visit [facility] [address] [place] [address] PVC (premature ventricular contraction) (Primary Dx) Social History Tobacco Use Types Packs/Day Years Used Date Smoking Tobacco: Never Smokeless Tobacco: Never Alcohol Use Standard Drinks/Week Comments No 0 (1 standard drink = 0.6 oz pur e alcohol) Comments Unknown Sex and Gender Information Value Date Recorded Sex Assigned at Not on file 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:55 AM DENTOFACIAL 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 Gender Identity Not on file Sexual Orientation Not on file documented as of this encounter Progress Notes * Crystal Jordan MA - 07/03/2018 2:30 PM CDT Patient came in today for an EKG, EKG was given to Marcus(RN) BP 124/74 P 75 documented in this encounter Plan of Treatment Not on file documented as of this encounter Procedures Procedure Name Priority Date/Time Associated Diagnosis Comments ECG 12-LEAD Routine 07/03/2018 PVC (premature ventricular contraction) documented in this encounter Results * ECG 12 lead (07/03/2018) us Isidoro Olvera MD ECG ORDERABLES Final Re sult documented in this encounter Visit Diagnoses Diagnosis PVC (premature ventricular contraction)- Primary Other premature beats documented in this encounter Care Teams Circuit Board Repair Technician Relationship Specialty Start Date End Date Kevin Vega MD [address] [place] [place] [address] PCP - General Family Medicine 12/30/17 10/06/22 documented as of this encounter
--- OUTSIDE RECORDS SUMMARY | 2024-09-16 07:11 | XMS_ITS | Encounter Summary ---
Author Organization [facility] Address [address] [place] [address] Care Team Providers Care Olive Pitter Name Role Phone Kevin Vega MD Primary Care Provider [phone] Encounter Details Date Type Department Care Team (Late st Contact Info) Description 07/13/2018 Telephone [facility] [address] [facility] [address] [place] [address] Isidoro Olvera MD [address] [facility] [address] [place] [address] Social History Tobacco Use Types Packs/Day Years Used Date Smoking Tobacco: Never Smokeless Tobacco: Never Alcohol Use Standard Drinks/Week Comments No 0 (1 standard drink = 0.6 oz pur e alcohol) Comments Unknown Sex and Gender Information Value Date Recorded Sex Assigned at Not on file 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:55 AM TUG CAPTAIN Gender Identity Not on file Sexual Orientation Not on file documented as of this encounter Miscellaneous Notes * Telephone Encounter - Justine Duggan RN - 07/13/2018 4:20 PM CDT Spoke with patient. States that she feels just discomfort/pressure all over her body. Also reports that she feels a vibrating in her head. Missed a few doses of Labetolol. Took this morning and feelslike it has improved some. She cannot tell if this is cardiac or fibromyalgia. Unable to check blood pressure. Asked patient if she feels that she needs to be in the emergency room, Feels that she does not at this time. Instructed patient to continue to take the Labetolol as ordered and if not feeling better by Friday to call the office. Discussed with patient when it is appropriate to proceedto the ER. Verbalized understanding. * Telephone Encounter - Gini Mendenhall - 07/13/2018 2:12 PM CDT Pt called - reported she has been having feeling of pressure all over her body, and painful palpitations. Pt stated she was out of her BP med, didn't know if that was the problem. Took BP med today and feels a little better - when quizzed about the length of time she was without her BP med - she said that she forgot - maybe a day. Doesn't know if the sensation is from her BP being high or from fib romyalgia. documented in this encounter Plan of Treatment Not on file documented as of this encounter Visit Diagnoses Not on filedocumented in this encounter Care Teams Olive Pitter Relationship Specialty Start Date End Date Kevin Vega MD [address] [place] [address] PCP - General Family Medicine 12/30/17 10/06/22 documented as of this encounter
--- OUTSIDE RECORDS SUMMARY | 2024-09-16 07:12 | XMS_ITS | Encounter Summary ---
Author Organization [facility] Address [address] [facility] [address] [place] [address] Care Team Providers Care Work Study Student Name Role Phone Kevin Vega MD Primary Care Provider [phone] Reason for Visit * Reason Comments Follow-up 1 mo follow up on pa lps, tachy, PVC's, HTN, QT prolongation Encounter Details Date Type Department Care Team (Late st Contact Info) Description 02/09/2018 11:45 AM CDT Office Visit [facility] [address] [address] [place] [address] Isidoro Olvera MD [address] [facility] [address] [place] [address] Frequent PVCs (Primary Dx); HTN (hypertension), benign; Morbid obesity with BMI of 40.0-44.9, adult (CMS/HCC); Palpitations; QT prolongation; Sinus tachycardia; Pulmonary HTN (CMS/HCC) Social History Tobacco Use Types Packs/Day Years Used Date Smoking Tobacco: Never Smokeless Tobacco: Never Alcohol Use Standard Drinks/Week Comments No 0 (1 standard drink = 0.6 oz pur e alcohol) Comments Unknown Sex and Gender Information Value Date Recorded Sex Assigned at Not on file 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:55 AM 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 Gender Identity Not on file Sexual Orientation Not on file documented as of this encounter Last Filed Vital Signs Vital Sign Reading Time Taken Comments Blood Pressure 114/68 02/09/2018 11:53 AM CDT Pulse 91 02/09/2018 11:53 AM CDT Temperature - - Respiratory Rate - - Oxygen Saturation 96% 02/09/2018 11:53 AM CDT Inhaled Oxygen Concentration - - Weight 116.1 kg (256 lb) 02/09/2018 11:53 AM CDT Height 162.6 cm (5' 4 ) 02/09/2018 11:53 AM CDT Body Mass Index 43.94 02/09/2018 11:53 AM CDT documented in this encounter Progress Notes * Isidoro Olvera MD - 02/09/2018 11:45 AM CDT [facility] DATE OF VISIT: 02/09/2018 CHIEF COMPLAINT Chief Complaint Patient presents with ??? Follow-up 1 mo follow up on palps, tachy, PVC's, HTN, QT prolongation ASSESSMENT Diagnoses and all orders for this visit: Frequent PVCs (Primary) HTN (hypertension), benign Morbid obesity with BMI of 40.0-44.9, adult (CMS/HCC) Palpitations QT prolongation Sinus tachycardia Pulmonary HTN (CMS/HCC) PLAN/RECOMMENDATIONS 1. Minimize caffeine intake which may help although not responsible for presence of PVC's or tachycardia. Etiology of very frequent PVC's unclear. Discussed CM, automatic focus of PVC's within ventricular tissue. 2. BP controlled on Labetolol, palps much [...] not in decompensated HF. 6. QTc interval shortened significantly off Buspar. Will monitor for PVC frequency post delivery. Further recommendations to follow. Over 50% of this visit counseling PVC's, tachycardia, palpitations, HTN, lipids, medications, lifestyle modification. Follow up in the office 3 months or sooner as needed. Thank you for allowing me the privilege of participating in the care this very pleasant patient. Please do not hesitate to contact me with any additional questions or concerns. HPI Araceli Cedeno is a 32 y.o. female with a PMHx of anxiety/depression, [...] date end of February with planned induction. MEDICAL HISTORY Past Medical History: Diagnosis Date [...] tablet,chewable cholecalciferol (VITAMIN D-3) 2,000 unit capsule famotidine (PEPCID) 20 mg tablet labetalol (NORMODYNE,TRANDATE) 200 mg tablet loratadine (CLARITIN) 10 mg tablet magnesium oxide 500 mg capsule PNV 16-iron fum,[id number] 35-1-200 mg capsule pyridoxine, vitamin B6, 200 mg tablet extended release SAVELLA 50 mg tablet ALLERGIES Allergies Allergen Reactions ??? Phenergan [Promethazine] Other (See comments) Panic attack REVIEW OF SYSTEMS Review of Systems Constitution: Negative for decreased appetite, diaphoresis, fever, weakness, malaise/fatigue and night sweats. HENT: Negative for hearing loss and nosebleeds. Eyes: Negative for blurred vision and pain. Cardiovascular: Negative for chest pain, claudication, dyspnea on exertion, irregular heartbeat, leg swelling, near-syncope, orthopnea, palpitations and syncope. Respiratory: Negative for cough, hemoptysis, [...] Allergic/Immunologic: Negative for environmental allergies. PHYSICAL EXAM Vitals: 02/09/18 1153 BP: 114/68 Pulse: 91 SpO2: 96% Weight: 116.1 kg (256 lb) Height: 162.6 cm (5' 4 ) Body mass index is 43.94 kg/m??. Physical Exam Constitutional: She is oriented [...] Judgment normal. LABS AND OTHER DIAGNOSTIC TESTS Office Visit on 12/30/2017 Component Date Value [...] stress test, and bloodwork/lipids. Kain Olvera MD, [facility] documented in this encounter Plan of Treatment Not on file documented as of this encounter Visit Diagnoses Diagnosis Frequent PVCs- Primary HTN (hypertension), benign Essential hypertension, benign Morbid obesity with BMI of 40.0-44.9, adult (HCC) Palpitations QT prolongation Sinus tachycardia Other specified cardiac dysrhythmias Pulmonary HTN (HCC) documented in this encounter Historical Medications * This list may reflect changes made after this encounter. loratadine (CLARITIN) 10 mg tablet Take 10 mg by mouth daily. 09/24/2021 added in this encounter Care Teams Work Study Student Relationship Specialty Start Date End Date Kevin Vega MD [address] [place] [address] PCP - General Family Medicine 12/30/17 10/06/22 documented as of this encounter
--- OUTSIDE RECORDS SUMMARY | 2024-09-16 07:12 | XMS_ITS | Encounter Summary ---
Author Organization [facility] Address [address] [place] [address] Care Team Providers Care Online Content Developer Name Role Phone Kevin Vega MD Primary Care Provider [phone] Encounter Details Date Type Department Care Team (Late st Contact Info) Description 04/30/2018 9:15 AM CDT Office Visit [facility] [address] [facility] [address] [place] [address] QT prolongation (Primary Dx) Social History Tobacco Use Types Packs/Day Years Used Date Smoking Tobacco: Never Smokeless Tobacco: Never Alcohol Use Standard Drinks/Week Comments No 0 (1 standard drink = 0.6 oz pur e alcohol) Comments Unknown Sex and Gender Information Value Date Recorded Sex Assigned at Not on file 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:55 AM SECURITY THREAT 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 QT interval was good per CT and will recheck EKG in 2 weeks after she starts sertraline today. documented in this encounter Plan of Treatment Not on file documented as of this encounter Procedures Procedure Name Priority Date/Time Associated Diagnosis Comments ECG 12-LEAD Routine 04/30/2018 QT prolongation documented in this encounter Results * ECG 12 lead (04/30/2018) us Isidoro Olvera MD ECG ORDERABLES Final Re sult documented in this encounter Visit Diagnoses Diagnosis QT prolongation- Primary documented in this encounter Care Teams Online Content Developer Relationship Specialty Start Date End Date Kevin Vega MD [address] [place] [place] [address] PCP - General Family Medicine 12/30/17 10/06/22 documented as of this encounter
--- OUTSIDE RECORDS SUMMARY | 2024-09-16 07:12 | XMS_ITS | Encounter Summary ---
Author Organization [facility] Address [address] [place] [address] Care Team Providers Care Kindergarten Teacher Assistant Name Role Phone Kevin Vega MD Primary Care Provider [phone] Encounter Details Date Type Department Care Team (Late st Contact Info) Description 04/29/2018 Telephone [facility] [address] [facility] [address] [facility] [address] [place] [address] Isidoro Olvera MD [address] [facility] [address] [place] [address] Social History Tobacco Use Types Packs/Day Years Used Date Smoking Tobacco: Never Smokeless Tobacco: Never Alcohol Use Standard Drinks/Week Comments No 0 (1 standard drink = 0.6 oz pur e alcohol) Comments Unknown Sex and Gender Information Value Date Recorded Sex Assigned at Not on file 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:55 AM LOCOMOTIVE OBSERVER Gender Identity Not on file Sexual Orientation Not on file documented as of this encounter Miscellaneous Notes * Telephone Encounter - Justine Duggan RN - 04/29/2018 1:14 PM CDT Left message on patients voicemail stating that she will need a baseline EKG prior to starting the sertraline and then another EKG two weeks after starting it. She is to call office to schedule EKG once she receives Rx. Aware not to start the new Rx until baseline EKG is preformed. Order for EKG placed in chart. * Telephone Encounter - Isidoro Olvera MD - 04/29/2018 12:55 PM CDT She needs another EKG for a baseline now prior to starting Sertraline then another in 2 weeks. We can then determine if it is reasonable to continue. * Telephone Encounter - Chrissy Arango NP - 04/29/2018 12:23 PM CDT I think sertraline can also cause QT prolongation, but I will send this to Dr. Olvera for his input. Maybe he would be ok with her starting sertraline as long as she came in for ECG to monitor her QT interval after being on it for 1-2 weeks. * Telephone Encounter - Justine Duggan RN - 04/29/2018 10:25 AM CDT Spoke with patient. States that she had her baby girl on March 22. Has been monitoring her blood pressure and the highest reading she has gotten was 150/90. Her OB doctor was not overly concerned per patient. Is occasionally feeling dizzy/lightheaded but feels this may be related to lack of sleep.Has completed cut caffeine out of her diet. Needing something for depression. Buspar wasstopped by Dr. Olvera due to QT prolongation. Patient is wondering if she can take Zoloft. Her OB physician asked that she check with Dr. Olvera prior to this being ordered to make sure it is okay.Will forward to LEIDA Lowe. 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 Said AD had her stop buspar but wants to know if she could take Zoloft. Also said her blood pressures have been running between 134/85 to 150/90. Would like a cb at [phone]. Said it is fine to leave a detailed message if she isn't able to steel pickler. documented in this encounter Plan of Treatment Not on file documented as of this encounter Visit Diagnoses Not on filedocumented in this encounter Care Teams Kindergarten Teacher Assistant Relationship Specialty Start Date End Date Kevin Vega MD [address] [place] [address] PCP - General Family Medicine 12/30/17 10/06/22 documented as of this encounter
--- OUTSIDE RECORDS SUMMARY | 2024-09-16 07:13 | XMS_ITS | Encounter Summary ---
Author Organization [facility] Address [address] [facility] [address] [place] [address] Care Team Providers Care Wood Scaler Name Role Phone Kevin Vega MD Primary Care Provider [phone] Reason for Visit * Cardiology (Routine) - Closed Specialty Diagnoses / Procedures Referred By Contac t Referred To Contact Cardiology Imaging Diagnoses Palpitations Sinus tachycardia Frequent PVCs HTN (hypertension), benign 26 weeks gestation of Procedures Transthoracic Echo Complete W Doppler/CF Isidoro Olvera MD Phone: tel: fax: [facility] Cardiology [address] [place] [address] Phone: tel: fax: Referral ID Status Reason Start Date Expiration Date Visits Re quested Visits Authorized [id number] Closed 01/08/2018 02/22/2018 1 1 Encounter Details Date Type Department Care Team (Latest Contact Info) Description 01/16/2018 2:00 PM CDT Ancillary Procedure [facility] Cardiology [address] [place] [id number] Palpitations; Sinus tachycardia; Frequent PVCs; HTN (hypertension), benign; 26 weeks gestation of Social History Tobacco Use Types Packs/Day Years Used Date Smoking Tobacco: Never Smokeless Tobacco: Never Alcohol Use Standard Drinks/Week Comments No 0 (1 standard drink = 0.6 oz pur e alcohol) Comments Unknown Sex and Gender Information Value Date Recorded Sex Assigned at Not on file 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:55 AM SPLIT LEATHER 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 Gender Identity Not on file Sexual Orientation Not on file documented as of this encounter Last Filed Vital Signs Vital Sign Reading Time Taken Comments Blood Pressure - - Pulse - - Temperature - - Respiratory Rate - - Oxygen Saturation - - Inhaled Oxygen Concentration - - Weight 116.1 kg (256 lb) 01/16/2018 1:55 PM CDT Height 162.6 cm (5' 4 ) 01/16/2018 1:55 PM CDT Body Mass Index 43.94 01/16/2018 1:55 PM CDT documented in this encounter Plan of Treatment Not on file documented as of this encounter Procedures Procedure Name Priority Date/Time Associated Diagnosis Comments TRANSTHORACIC ECHO (TTE) COMPLETE W DOPPLER/CF WO CONTRAST Routine 01/16/2018 3:06 PM CDT Palpitations Sinus tachycardia Frequent PVCs HTN (hypertension), benign 26 weeks gestation of documented in this encounter Results * TRANSTHORACIC ECHO (TTE) COMPLETE W DOPPLER/CF WO CONTRAST (01/16/2018 3:06 PM CDT) Anatomical Region Laterality Modality Ultrasound 01/16/2018 1:53 PM CDT Narrative 01/16/2018 4:42 PM CDT [facility] [facility] [address] [address] [address] [facility] [address] [place] [address] [address] P:[phone] P:[phone] Echocardiographic Report Patient Name: SUMMER PHILLIPS : 1985 Study Date: 01/16/2018 1:53:55 PM Gender: F Tech: Location: [place] Ref.Physician: Kevin VEGA Height(Cm): 163 BSA: 2.17 Weight(Kg): 116.12 Heart Rate: 76 BP: 114/72 Quality: Good Order Physician: ISIDORO OLVERA Procedures: Echocardiographic Report: Transthoracic echocardiogram with complete 2D, M-Mode, and color Doppler examination. Indications: Chest Pain, Hypertension, and Premature Ventricular Complexes. Measurements: 2D/M Mode ?Doppler ? Measurement ?Value ?Normal Range ? Measurement ?Value ?Normal Range ? EF Mod ? 71 ?AV Mean PG ? 7 ?mmHg ? EF MM ?73 ? [ 55 - 70 ] % ?AV Peak Jerry ?1.96 ? m/s ? LVIDd MM ? 4.67 ? [ 3.90 - 5.30 ] cm ? AV Peak PG ? 15 ? mmHg ? LVIDs MM ? 2.73 ? [ 2.30 - 3.90 ] cm ? AV VTI ? 0.36 ? cm ? LVPWd MM ? 1.07 ? [ 0.60 - 1.00 ] cm ? LVOT Peak Jerry ?1.10 ? [ 0.70 - 1.10 ] m/s ? IVSd MM ?1.07 ? [ 0.60 - 0.90 ] cm ? LVOT VTI ? 0.22 ? cm ? LA Dimension MM ?4.80 ? [ 2.70 - 3.80 ] cm ? MV E Peak Jerry ?0.61 ? [ 0.60 - 1.30 ] m/s ? AoR Diam MM ?2.80 ? [ 2.60 - 3.70 ] cm ? MV A Peak Jerry ?0.69 ? [ 0.40 - 0.80 ] m/s ? LA Volume Index ?24.00 ?[ 16.00 - 28.00 ] cc/m2 ?MV Decel Time ?192 ?[ 150 - 200 ] msec ? ACS MM ? 2.00 ? cm ? PV Peak Jerry ?1.13 ? [ 0.40 - 0.80 ] m/s ? TR Peak Jerry ?2.82 ? [ 0.40 - 0.80 ] m/s ? TR Peak PG ? 32 ? mmHg ? RVSP ? 40.00 ?mmHg ? E' ? 0.10 ? E/E' ? 6 ? Findings: Interpretation Site: Exam was interpreted at [facility]. Left Ventricle: Normal left ventricular systolic function. No focal wall motion abnormalities. Normal left ventricular size. Mild concentric left ventricular hypertrophy. Impaired diastolic relaxation Grade I. Ejection fraction is visually estimated at 70-75 %. Ejection fraction is measured at 71 %. Right Ventricle: Normal right ventricular systolic function. Mild enlargement of right ventricle. Left Atrium: There is mild enlargement of left atrium. Right Atrium: The right atrium is normal in size. Atrial Septum: Normal atrial septum. Mitral Valve: Normal appearance of the mitral valve. Mild mitral valve regurgitation. There is no hemodynamically significant mitral stenosis by Doppler. Aortic Valve: Normal appearance of the aortic valve. No evidence of hemodynamically significant aortic stenosis by Doppler. Trileaflet aortic valve. Trace aortic valve regurgitation. Tricuspid Valve: Normal appearance of the tricuspid valve. Mild pulmonary hypertension based on right ventricular systolic pressure. Estimated peak RVSP is 40 mmHg. Mild tricuspid regurgitation. Pulmonic Valve: Normal appearance of the pulmonic valve. No pulmonic stenosis. Mild pulmonic regurgitation. Pericardium: Normal pericardium with no significant pericardial effusion. Aorta: Normal aortic root. IVC: Normal size and normal respiratory collapse consistent with normal right atrial pressure (<5 mmHg). Pulmonary Artery: Normal pulmonary artery size. Conclusions: Normal left ventricular systolic function. No focal wall motion abnormalities. Normal left ventricular size. Mild concentric left ventricular hypertrophy. Impaired diastolic relaxation Grade I. Ejection fraction is visually estimated at 70-75 %. Ejection fraction is measured at 71 %. Normal right ventricular systolic function. Mild enlargement of right ventricle. There is mild enlargement of left atrium. Mild mitral valve regurgitation. Mild pulmonary hypertension based on right ventricular systolic pressure. Estimated peak RVSP is 40 mmHg. Mild tricuspid regurgitation. Mild pulmonic regurgitation. Normal sinus rhythm. Frequent PVCs. Electronically Signed By: Jed Lord MD 2018-01-16 16:42:26 CDT CC: CC: Procedure Note Jed Lord MD - 01/16/2018 [facility] [address] [facility] [address] [id number] [address] [place] [address] [address] P:[phone] P:[phone] Echocardiographic Report Patient Name: SUMMER PHILLIPSPatient ID: [id number] : [id number] Date: 01/16/2018 1:53:55 PM Gender: FAccession #: [id number] Tech: GMLocation: [place] Ref.Physician: Luis VEGA(Cm): 163 BSA: 2.17Weight(Kg): 116.12 Heart Rate: 76BP: 114/72 Quality: GoodOrder Physician: ISIDORO OLVERA Procedures: Echocardiographic Report: Transthoracic echocardiogram with complete 2D, M-Mode, and color Dopplerexamination. Indications: Chest Pain, Hypertension, and Premature Ventricular Complexes. Measurements: 2D/M Mode Doppler Measurement Value Normal Range MeasurementValue Normal Range EF Mod 71 AV Mean PG 7mmHg EF MM 73 [ 55 - 70 ] % AV Peak Vel1.96 m/s LVIDd MM 4.67 [ 3.90 - 5.30 ] cm AV Peak PG 15mmHg LVIDs MM 2.73 [ 2.30 - 3.90 ] cm AV VTI0.36 cm LVPWd MM 1.07 [ 0.60 - 1.00 ] cm LVOT Peak Vel1.10 [ 0.70 - 1.10 ] m/s IVSd MM 1.07 [ 0.60 - 0.90 ] cm LVOT VTI0.22 cm LA Dimension MM 4.80 [ 2.70 - 3.80 ] cm MV E Peak Vel0.61 [ 0.60 - 1.30 ] m/s AoR Diam MM 2.80 [ 2.60 - 3.70 ] cm MV A Peak Vel0.69 [ 0.40 - 0.80 ] m/s LA Volume Index 24.00 [ 16.00 - 28.00 ] cc/m2 MV Decel [id number] [ 150 - 200 ] msec ACS MM 2.00 cm PV Peak Vel1.13 [ 0.40 - 0.80 ] m/s TR Peak Vel2.82 [ 0.40 - 0.80 ] m/s TR Peak PG 32mmHg RVSP40.00 mmHg E'0.10 E/E' 6 Findings: Interpretation Site: Exam was interpreted at [facility]. Left Ventricle: Normal left ventricular systolic function. No focal wall motionabnormalities. Normal left ventricular size. Mild concentric left ventricular hypertrophy.Impaired diastolic relaxation Grade I. Ejection fraction is visually estimated at 70-75 %.Ejection fraction is measured at 71 %. Right Ventricle: Normal right ventricular systolic function. Mild enlargement of rightventricle. Left Atrium: There is mild enlargement of left atrium. Right Atrium: The right atrium is normal in size. Atrial Septum: Normal atrial septum. Mitral Valve: Normal appearance of the mitral valve. Mild mitral valve regurgitation.There is no hemodynamically significant mitral stenosis by Doppler. Aortic Valve: Normal appearance of the aortic valve. No evidence of hemodynamicallysignificant aortic stenosis by Doppler. Trileaflet aortic valve. Trace aortic valveregurgitation. Tricuspid Valve: Normal appearance of the tricuspid valve. Mild pulmonary hypertensionbased on right ventricular systolic pressure. Estimated peak RVSP is 40 mmHg. Mildtricuspid regurgitation. Pulmonic Valve: Normal appearance of the pulmonic valve. No pulmonic stenosis. Mildpulmonic regurgitation. Pericardium: Normal pericardium with no significant pericardial effusion. Aorta: Normal aortic root. IVC: Normal size and normal respiratory collapse consistent with normal rightatrial pressure (<5 mmHg). Pulmonary Artery: Normal pulmonary artery size. Conclusions: Normal left ventricular systolic function. No focal wall motionabnormalities. Normal left ventricular size. Mild concentric left ventricular hypertrophy.Impaired diastolic relaxation Grade I. Ejection fraction is visually estimated at 70-75 %.Ejection fraction is measured at 71 %. Normal right ventricular systolic function. Mild enlargement of rightventricle. There is mild enlargement of left atrium. Mild mitral valve regurgitation. Mild pulmonary hypertension based on right ventricular systolic pressure.Estimated peak RVSP is 40 mmHg. Mild tricuspid regurgitation. Mild pulmonic regurgitation. Normal sinus rhythm. Frequent PVCs. Electronically Signed By: Jed Lord MD 2018-01-16 16:42:26 CDT CC: CC: Isidoro Olvera MD CV ECHO PROCEDURES Final Result documented in this encounter Visit Diagnoses Diagnosis Palpitations Sinus tachycardia Other specified cardiac dysrhythmias Frequent PVCs HTN (hypertension), benign Essential hypertension, benign 26 weeks gestation of documented in this encounter Care Teams Wood Scaler Relationship Specialty Start Date End Date Kevin Vega MD [address] [place] [address] PCP - General Family Medicine 12/30/17 10/06/22 documented as of this encounter
--- OUTSIDE RECORDS SUMMARY | 2024-09-16 07:13 | XMS_ITS | Encounter Summary ---
Author Organization [facility] Address [address] [facility] [address] [place] [address] Care Team Providers Care Integrity Engineer Name Role Phone Kevin Vega MD Primary Care Provider [phone] Encounter Details Date Type Department Care Team (Late st Contact Info) Description 01/22/2018 Telephone [facility] [address] [place] [address] Isidoro Olvera MD [address] [facility] [address] [place] [address] Social History Tobacco Use Types Packs/Day Years Used Date Smoking Tobacco: Never Smokeless Tobacco: Never Alcohol Use Standard Drinks/Week Comments No 0 (1 standard drink = 0.6 oz pur e alcohol) Comments Unknown Sex and Gender Information Value Date Recorded Sex Assigned at Not on file 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 * Telephone Encounter - Gini Mendenhall - 01/22/2018 12:48 PM CDT Pt called and asked that I let Dr Olvera know she was recently diagnosised with gestational diabetes. documented in this encounter Plan of Treatment Not on file documented as of this encounter Visit Diagnoses Not on filedocumented in this encounter Care Teams Integrity Engineer Relationship Specialty Start Date End Date Kevin Vega MD [address] [place] [address] PCP - General Family Medicine 12/30/17 10/06/22 documented as of this encounter
--- OUTSIDE RECORDS SUMMARY | 2024-09-16 07:13 | XMS_ITS | Encounter Summary ---
Author Organization [facility] Address [address] [facility] [address] [place] [address] Care Team Providers Care Copping Machine Operator Name Role Phone Kevin Vega MD Primary Care Provider [phone] Encounter Details Date Type Department Care Team (Late st Contact Info) Description 01/20/2018 Telephone [facility] [address] [facility] [address] [place] [address] Isidoro Olvera MD [address] [facility] [address] [place] [address] Social History Tobacco Use Types Packs/Day Years Used Date Smoking Tobacco: Never Smokeless Tobacco: Never Alcohol Use Standard Drinks/Week Comments No 0 (1 standard drink = 0.6 oz pur e alcohol) Comments Unknown Sex and Gender Information Value Date Recorded Sex Assigned at Not on file 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 I reviewed her echo results with her. She verbalizes understanding. Copy mailed to her home address at her request. * Telephone Encounter - Gabi Cesar RN - 01/20/2018 11:06 AM CDT I called the patient back. Left a voicemail message requesting a return call. * Telephone Encounter - Angeles Saunders MA - 01/20/2018 10:50 AM CDT Pt calling for echo results. Pt can be reached at [phone]. ANDREW Stephens documented in this encounter Plan of Treatment Not on file documented as of this encounter Visit Diagnoses Not on filedocumented in this encounter Care Teams Copping Machine Operator Relationship Specialty Start Date End Date Kevin Vega MD [address] [place] [address] PCP - General Family Medicine 12/30/17 10/06/22 documented as of this encounter
--- OUTSIDE RECORDS SUMMARY | 2024-09-16 07:14 | XMS_ITS | Encounter Summary ---
Author Organization [facility] Address [address] [facility] [address] [place] [address] Care Team Providers Care Pediatric Medical Assistant Name Role Phone Kevin Vega MD Primary Care Provider [phone] Encounter Details Date Type Department Care Team (Late st Contact Info) Description 01/14/2018 Telephone [facility] [address] [facility] [address], [place] [address] Isidoro Olvera MD [address] [facility] [address] [place] [address] Social History Tobacco Use Types Packs/Day Years Used Date Smoking Tobacco: Never Smokeless Tobacco: Never Alcohol Use Standard Drinks/Week Comments No 0 (1 standard drink = 0.6 oz pur e alcohol) Comments Unknown Sex and Gender Information Value Date Recorded Sex Assigned at Not on file 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 She states that she actually seemed to feel better after stopping the Buspar until today when she started to feel the pounding in the chest. She will increase her Labetolol to 200mg BID and call us back with an update in a few days or sooner if needed. * Telephone Encounter - Isidoro Olvera MD - 01/14/2018 4:34 PM CDT Does she feel her sxs worsened after stopping Buspar? Increase LAbetolol to 200mg in AM and 200mg in evening. With regard to her Buspar, she needs to speak with her OB regarding acceptable alternatives as her sxs may be related to stopping Buspar. * Telephone Encounter - Justine Duggan RN - 01/14/2018 3:19 PM CDT Patient calling sates that she is extremely fatigued, unable to sleep, shaky, pounding in her chest, and short of breath at rest and with exertion. She has almost completely cut out caffeine. Slight swelling noted to ankles bilaterally. Blood pressure has been ranging anywhere from 100/70-136/85. Patient unaware of heart rate. States that she remains nauseous but has been able to keep food jarrett and has been drinking fluids (including Pedialyte at times). She has not been gaining weight but baby is measuring on schedule (Patient is 28 weeks ). Patient seems anxious on the phone. [facility] her Buspar. Will review with Dr. Olvera for further orders or recommendations. * Telephone Encounter - Crystal Gonzáles - 01/14/2018 2:55 PM CDT Patient is feels like heart has been pounding hard and she is fatigued. She is not able to get any rest. She said her (28 weeks) is probably not helping. documented in this encounter Plan of Treatment Not on file documented as of this encounter Visit Diagnoses Not on filedocumented in this encounter Discontinued Medications Medication Sig Discontinue Reason Start Date End Da te busPIRone (BUSPAR) 15 mg tabletIndications:Genera lized Anxiety Disorder Take 7.5 mg by mouth 2 (two) times a day. Side effects 11/18/2017 01/14/2018 labetalol (NORMODYNE,TRANDATE) 100 mg tablet Take 2 tabs po in the morning and 1 tab po in the evening Dose adjustment 12/23/2017 01/14/2018 documented as of this encounter Historical Medications * This list may reflect changes made after this encounter. labetalol (NORMODYNE,TRANDA TE) 200 mg tablet Take 200 mg by mouth 2 (two) times a day. 05/06/2018 added in this encounter Care Teams Pediatric Medical Assistant Relationship Specialty Start Date End Date Kevin Vega MD [address] [place] [address] PCP - General Family Medicine 12/30/17 10/06/22 documented as of this encounter
--- OUTSIDE RECORDS SUMMARY | 2024-09-16 07:14 | XMS_ITS | Encounter Summary ---
Author Organization [facility] Address [address] [facility] [address] [place] [address] Care Team Providers Care Clinical Documentation Nurse Name Role Phone Kevin Vega MD Primary Care Provider [phone] Encounter Details Date Type Department Care Team (Late st Contact Info) Description 01/15/2018 Orders Only [facility] Cardiology [address] [place] [address] Provider, MD Frank [address] [place], [place] [id number] Social History Tobacco Use Types Packs/Day Years Used Date Smoking Tobacco: Never Smokeless Tobacco: Never Alcohol Use Standard Drinks/Week Comments No 0 (1 standard drink = 0.6 oz pur e alcohol) Comments Unknown Sex and Gender Information Value Date Recorded Sex Assigned at Not on file 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 Gender Identity Not on file Sexual Orientation Not on file documented as of this encounter Plan of Treatment Not on file documented as of this encounter Procedures Procedure Name Priority Date/Time Associated Diagnosis Comments HOLTER MONITOR 24 HR Routine 12/25/2017 documented in this encounter Results * 24 HR Holter Monitor (12/25/2017) Anatomical Region Laterality Modality Other Historical Provider [facility] C[facility] LISANDRA DECKER Final Result documented in this encounter Visit Diagnoses Not on filedocumented in this encounter Care Teams Clinical Documentation Nurse Relationship Specialty Start Date End Date Kevin Vega MD [address] [place] [address] PCP - General Family Medicine 12/30/17 10/06/22 documented as of this encounter
--- OUTSIDE RECORDS SUMMARY | 2024-09-16 07:15 | XMS_ITS | Encounter Summary ---
Author Organization [facility] Address [address] [facility] [address] [place] [address] Care Team Providers Care Sql Programmer Name Role Phone Kevin Vega MD Primary Care Provider [phone] Encounter Details Date Type Department Care Team (Latest Contact Info) Description 01/13/2018 11:30 AM CDT Procedure visit [facility] [address] [facility] [address] [place] [address] Palpitations (Primary Dx) Social History Tobacco Use Types Packs/Day Years Used Date Smoking Tobacco: Never Smokeless Tobacco: Never Alcohol Use Standard Drinks/Week Comments No 0 (1 standard drink = 0.6 oz pur e alcohol) Comments Unknown Sex and Gender Information Value Date Recorded Sex Assigned at Not on file 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:55 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 documented in this encounter Plan of Treatment Not on file documented as of this encounter Procedures Procedure Name Priority Date/Time Associated Diagnosis Comments ECG 12-LEAD Routine 01/13/2018 Palpitations documented in this encounter Results * ECG 12 lead (01/13/2018) Isidoro Olvera MD ECG ORDERABLES Final Re sult documented in this encounter Visit Diagnoses Diagnosis Palpitations- Primary documented in this encounter Care Teams Sql Programmer Relationship Specialty Start Date End Date Kevin Vega MD [address] [place] [address] PCP - General Family Medicine 12/30/17 10/06/22 documented as of this encounter
--- OUTSIDE RECORDS SUMMARY | 2024-09-16 07:35 | XMS_ITS ---
Author Organization [facility] Address [address] [facility] [address] [place] [address] Care Team Providers Care Welder Tack Name Role Phone Mercedes GUZMAN, Amol Primary Care Provider Vargas Bustillo, Thena Unavailable [phone] REASON FOR VISIT Gabapentin Social History Sex Assigned At : Social History Observation Description Sex Assigned At Female Encounters Encounter Location Date Provider Diagnosis [facility] [place] [id number] [facility] [address] [facility] [address] [place] [address] 06/14/2024 Thena Iwona Plan Of Treatment No Information Progress Notes * SUMMER PHILLIPS LDOB:1984 (39 yo F)Acc No.[id number]:06/14/2024 Patient:?SUMMER PHILLIPS :1985???Age:39 Y???Sex:Female Address:[address] [facility] [address] * true * Date:? Generated for Printi ng/Faxing/eTransmitting on:?09/16/2024 07:35 AM PROMOTION PRODUCER
--- OUTSIDE RECORDS SUMMARY | 2024-09-16 07:35 | XMS_ITS ---
Author Organization [facility] Address [facility] [place] [address] Care Team Providers Care Donor Services Specialist Name Role Phone Mercedes GUZMAN, Amol Primary Care Provider Ava Hope Unavailable [phone] Social History Sex Assigned At : Social History Observation Description Sex Assigned At Female Encounters Encounter Location Date Provider Diagnosis [facility] [place] [address] [place] [address] 07/23/2024 Ava Jordan Plan Of Treatment No Information Progress Notes * SUMMER PHILLIPS LDOB:1984 (39 yo F)Acc No.[id number]:07/23/2024 Patient:?SUMMER PHILLIPS Provider:?AVA JORDAN MD :1985???Age:39 Y???Sex:Female D ate:07/23/2024 Address:[address] [facility] Pcp:Amol Long MD Subjective: * Chief Complaints: * ??? * Medical History:? Objective: * Vitals:? Assessment: Plan: * Treatment: * Billing Information: * Visit Code:? * Procedure Codes:? * Electronic signature of Vikas Jordan MD on 09/16/2024 at 07:34 AM GEOPHYSICAL MANAGER Sign off status: Pending * Provider:?AVA JORDAN MD Date:? 024 Generated for Printi ng/Faxing/eTransmitting on:?09/16/2024 07:34 AM GEOPHYSICAL MANAGER
--- OUTSIDE RECORDS SUMMARY | 2024-09-16 07:36 | XMS_ITS ---
Author Organization [facility] [employer] Address [address] [place] [address] Care Team Providers Care Pump Attendant Name Role Phone Amol Long MD Primary Care Provider Ava Hope Unavailable [phone] Allergies Allergen (clinical drug ingredient) Drug/Non Drug Allergy documented on EMR Reaction Allergy Type Onset Date Status ritonavir Ritonavir Unknown Drug Allergy 11/21/2023 Active amlodipine Amlodipine Unknown Drug Allergy 11/21/2023 Acti ve Latex Latex Unknown Allergy Active promethazine Promethazine Unknown Drug Allergy 11/21/2023 Active nirmatrelvir Nirmatrelvir Unknown Drug Allergy 11/21/2023 Active REASON FOR VISIT depression, anxiety Medications Medication SIG (Take, Route, Frequency, Duration) Notes Start Date End Date Status Mupirocin 2% External 11/21/2023 Active Metoprolol Succinate ER 50 MG Oral 11/21/2023 Active Lisinopril 10 MG Oral 11/21/2023 Ac tive Savella 50 MG Oral 11/21/2023 Activ e Triamterene-HCTZ 37.5-25 MG Oral 11/21/2023 Active Ibuprofen 800 MG Oral 11/21/2023 Ac tive busPIRone HCl 15 MG Oral 11/21/2023 Active Metoprolol Succinate ER 100 MG Oral 11/21/2023 Active Pantoprazole Sodium 40 MG Oral 11/21/2023 Active Ondansetron 8 MG Oral 11/21/2023 Ac tive Oseltamivir Phosphate 75 MG Oral 11/21/2023 Active Clobetasol Propionate 0.05 % External 11/21/2023 Active metFORMIN HCl ER 500 MG Oral 11/21/2023 Active Cyclobenzaprine HCl 10 MG 1 tablet at be dtime as needed Orally Once a day Active Mirtazapine 30 MG 1 tablet Oral Once a day for 90 days 11/21/2023 Active Eletriptan Hydrobromide 20 MG Oral 11/21/2023 Active Estradiol 1 MG 1 tablet Orally Once a day Active Social History Sex Assigned At : Social History Observation Description Sex Assigned At Female Vital Signs Blood pressure systolic 133 mm Hg 06/11/20 24 Blood pressure diastolic 91 mm Hg 024 Heart Rate 86 /min 06/11/2024 Weight 271.8 lbs 06/11/2024 Weight-kg 123.29 kg 06/11/2024 Height 64.00 in 06/11/2024 Height-cm 162.56 cm 06/11/2024 BMI 46.65 kg/m2 06/11/2024 Encounters Encounter Location Date Provider Diagnosis [facility] [place] [id number] [facility] [address] [address] 06/11/2024 Ava Jordan Generalized anxiety disorder F41.1 and Major depressive disorder, recurrent, in partial remission F33.41 Assessments Encounter Date Diagnosis (ICD Code) Assessment Notes Treatment Notes Treatment Clinical Notes Section Notes 06/11/2024 Generalized anxiety disorder (ICD-10 - F41.1) 06/11/2024 Major depressive disorder, recurrent, in partial remission (ICD-10 - F33.41) Plan Of Treatment Medication Medication Name Sig Start Date Stop Date Notes Mirtazapine 30 MG 1 tablet Oral Once a day for 90 days Next Appt Details Follow Up: 4 Weeks, Reason: depression, anxiety Progress Notes * SUMMER PHILLIPS LDOB:1984 (39 yo F)Acc No.[id number]:06/11/2024 Patient:?SUMMER PHILLIPS Provider:?AVA JORDAN MD :1985???Age:39 Y???Sex:Female D ate:06/11/2024 Address:[address] [place] [address] [address] [facility] Pcp:Amol Long MD Subjective: * Chief Complaints: * ???1. Depression. 2. Anxiety . * HPI: ???Depression screening:?PHQ-9?Little interest or pleasure in doing things?More than half the days,?Feeling down, depressed, or hopeless?Nearly every day,?Trouble falling or staying asleep, or sleeping too much?Nearly every day,?Feeling tired or having little energy?Nearly every day,?Poor appetite or overeating?Nearly every day,?Feeling bad about yourself or that you are a failure, or have let yourself or your family down?Nearly every day,?Trouble concentrating on things, such as reading the newspaper or watching television?Nearly every day,?Moving or speaking so slowly that other people could have noticed; or the opposite, being so fidgety or restless that you have been moving around a lot more than usual?Nearly every day,?Thoughts that you would be better off or of hurting yourself in some way?More than half the days (Consider Suicide Assessment Risk),?Total Score?25,?Interpretation?Severe Depression.?Intervention?Depression Screening Findings Positve,?Follow-Up for Depression?Management of mental health treatment,?Suicide Risk Assessment Performed? ,?Additional Evaluation for Depression?Psychiatric interview and evaluation,?Name of the standardized tool used for adult depression screening:?Patient Health Questionnaire (PHQ-9).?Depression Screening:?ERIC-7 (2018 Edition)?Feeling nervous, anxious, or on edge?Nearly every day,?Not being able to stop or control worrying?Nearly every day,?Worrying too much about different things?Nearly every day,?Trouble relaxing?Nearly every day,?Being so restless that it is hard to sit still?Several days,?Becoming easily annoyed or irritable?More than half the days,?Feeling afraid as if something awful might happen?Nearly every day,?Total ERIC-7 Score?18,?Interpretation of Total?(15 and over) Severe.?History of Presenting Problem:? I'm hanging in here, it's been a rough couple of weeks. 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 * Medical History:?Problems: G eneralized anxiety disorder, Recurrent major depression in partial remission, Severe obesity, ,. * Medications:?Taking Estradio l 1 MG Tablet 1 tablet Orally Once a day , Taking Cyclobenzaprine HCl 10 MG Tablet 1 tablet at bedtime as needed Orally Once a day , Taking metFORMIN HCl ER 500 MG Tablet Extended Release 24 Hour Oral , Taking Clobetasol Propionate 0.05 % Solution External , Taking Oseltamivir Phosphate 75 MG Capsule Oral , Taking Pantoprazole Sodium 40 MG Tablet Delayed Release Oral , Taking Metoprolol Succinate ER 100 MG Tablet Extended Release 24 Hour Oral , Taking busPIRone HCl 15 MG Tablet Oral , Taking Ibuprofen 800 MG Tablet Oral , Taking Mirtazapine 15 MG Tablet Oral , Taking Ondansetron 8 MG Tablet Disintegrating Oral , Taking Mupirocin 2% Ointment External , Taking Triamterene-HCTZ 37.5-25 MG Tablet Oral , Taking Savella 50 MG Tablet Oral , Taking Lisinopril 10 MG Tablet Oral , Taking Metoprolol Succinate ER 50 MG Tablet Extended Release 24 Hour Oral , Taking Eletriptan Hydrobromide 20 MG Tablet Oral , Medication List reviewed and reconciled with the patient * Allergies:?Ritonavir: Allerg y - Onset Date 11/21/2023, Amlodipine: Allergy - Onset Date 11/21/2023, Promethazine: Allergy - Onset Date 11/21/2023, Nirmatrelvir: Allergy - Onset Date 11/21/2023, Latex. Objective: * Vitals:?BP:133/91mm Hg, HR:8 6/min, Wt:271.8lbs, Wt-k.29 kg, Ht: 64.00 in, Ht-cm: 162.56 cm, BMI:46.65Index, Body Surface Area: 2.36. * Examination: ???Psychiatry: ?Appearance:?well-groomed, well-nourished, ....?Affect / mood:?appropriate, full range.?Attention:?good.?Attitude:?cooperative.?Memory status:?no impairment noted.?Degree of awareness of surroundings:?within normal limits.?Delusions:?no.?Hallucinations:?no.?Insight:?good.?Intellectual functioning:?no impairment noted.?Judgement:?good.?Orientation:?awake, alert and oriented x 3.?Perceptual disorders:?no perceptual disorder noted.?Psychomotor activity:?within normal range.?Speech / language:?appropriate pitch/modulation, clear and coherent, normal rate, volume, and articulation (RVR), proper grammar used.?Thought content:?appropriate.?Thought process:?intact.? Assessment: * Assessment: 1.?Generalized anxiety disor chidi - F41.1 (Primary)???2.?Major depressive disorder, recurrent, in partial remission - F33.41??? Plan: * Treatment: * Procedure Codes:?10026 BEHAV ASSMT W/SCORE & DOCD/STAND INSTRUMENT * Follow Up:?4 Weeks (Reason: depression, anxiety) * Billing Information: * Visit Code:? * Procedure Codes:? 24019 BEHAV ASSMT W/SCORE & DOCD/STAND INSTRUMENT. * Electronic signature of Vikas Jordan MD on 09/16/2024 at 07:35 AM CONTINUOUS LINTER DRIER OPERATOR Sign off status: Pending * Provider:?AVA JORDAN MD Date:? 024 Generated for Olivia tello/Avila/Susannaitting on:?09/16/2024 07:35 AM CONTINUOUS LINTER DRIER OPERATOR History and Physical Notes * HPI (History of Present Illness) Category Sub-Category Detail Notes Category Not es History of Presenting Problem I'm hanging in here, it's been a rough couple of weeks. 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, but she has not decided whether she would like to do so; had been denied disability benefits, after challenging the denial the benefits were approved too hard on myself Depression screening PHQ-9 Little interest or pleasure in doing things: More than half the days Feeling down, depressed, or hopeless: Ne rufino every day Trouble falling or staying asleep, or sl eeping too much: Nearly every day Feeling tired or having little energy: N early every day Poor appetite or overeating: Nearly ever y day Feeling bad about yourself o r that you are a failure, or have let yourself or your family down: Nearly every day Trouble concentrating on thi ngs, such as reading the newspaper or watching television: Nearly every day Moving or speaking so slowly that other people could have noticed; or the opposite, being so fidgety or restless that you have been moving around a lot more than usual: Nearly every day Thoughts that you would be b kasi off or of hurting yourself in some way: More than half the days (Consider Suicide Assessment Risk) Total Score: 25 Interpretation: Severe Depression Intervention Depression Screening Findings: P ositve Follow-Up for Depression: Management of mental health treatment Suicide Risk Assessment Performed: Additional Evaluation for De pression: Psychiatric interview and evaluation Name of the standardized too l used for adult depression screening:: Patient Health Questionnaire (PHQ-9) Depression Screening ERIC-7 (2018 Edition) Feelin g nervous, anxious, or on edge: Nearly every day Not being able to stop or control worryi ng: Nearly every day Worrying too much about different things : Nearly every day Trouble relaxing: Nearly every day Being so restless that it is hard to sit still: Several days Becoming easily annoyed or irritable: Mo re than half the days Feeling afraid as if something awful rosalie ht happen: Nearly every day Total ERIC-7 Score: 18 Interpretation of Total: (15 and over) S evere Examination Category Sub-Category Detail Notes Category Not es Psychiatry Appearance: well-groomed, well-nourished , ... Attitude: cooperative Psychomotor activity: within normal rang e Attention: good Degree of awareness of surroundings: wit hin normal limits Orientation: awake, alert and juan carlos ented x 3 Affect / mood: appropriate, full ra nge Speech / language: appropriate pitch/mo dulation, clear and coherent, normal rate, volume, and articulation (RVR), proper grammar used Insight: good Judgement: good Thought process: intact Thought content: appropriate Perceptual disorders: no perceptual diso rder noted Intellectual functioning: no impairment noted Memory status: no impairment noted Delusions: no Hallucinations: no
--- OUTSIDE RECORDS SUMMARY | 2024-09-16 07:36 | XMS_ITS | Patient Health Record ---
Author Organization [facility] [employer] Address [address] [place] [address] Care Team Providers Care Medical Field Representative Name Role Phone Amol Long MD Primary Care Provider Eliza Hope Unavailable [phone] Mart Durham Unavailable [phone] Migration, Provider Unavailable Unavailable Allergies Allergen (clinical drug ingredient) Drug/Non Drug Allergy documented on EMR Reaction Allergy Type Onset Date Status ritonavir Ritonavir Unknown Drug Allergy 11/21/2023 Active amlodipine Amlodipine Unknown Drug Allergy 11/21/2023 Acti ve Latex Latex Unknown Allergy Active promethazine Promethazine Unknown Drug Allergy 11/21/2023 Active nirmatrelvir Nirmatrelvir Unknown Drug Allergy 11/21/2023 Active Results Component Value Reference Range Notes DRUG SCREEN, 14 DRUGS (DETEC TIMED), URINE Reviewed date:10/15/2023 12:00:00 AM Interpretation: Performing Lab: Notes/Report: Amphetamine negative Barbiturates negative Benzodiazipine negative Buprenorphine negative Cocaine negative MDMA/Ectasy negative Methadone negative Methamphetamine negative Morphine negative Oxycodone negative Phenocyclidine negative THC positive Reason For Referral No Information Medications Medication SIG (Take, Route, Frequency, Duration) Notes Start Date End Date Status Ibuprofen 800 MG Oral 11/21/2023 Ac tive busPIRone HCl 15 MG Oral 11/21/2023 Active Metoprolol Succinate ER 100 MG Oral 11/21/2023 Active Pantoprazole Sodium 40 MG Oral 11/21/2023 Active Eletriptan Hydrobromide 20 MG Oral 11/21/2023 Active Estradiol 1 MG 1 tablet Orally Once a day Active Ondansetron 8 MG Oral 11/21/2023 Ac tive Mupirocin 2% External 11/21/2023 Active Oseltamivir Phosphate 75 MG Oral 11/21/2023 Active Metoprolol Succinate ER 50 MG Oral 11/21/2023 Active Clobetasol Propionate 0.05 % External 11/21/2023 Active Lisinopril 10 MG Oral 11/21/2023 Ac tive metFORMIN HCl ER 500 MG Oral 11/21/2023 Active Savella 50 MG Oral 11/21/2023 Activ e Cyclobenzaprine HCl 10 MG 1 tablet at be dtime as needed Orally Once a day Active Triamterene-HCTZ 37.5-25 MG Oral 11/21/2023 Active Mirtazapine 30 MG TAKE 1 TABLET BY PERI DAILY for 90 Active Social History Sex Assigned At : Social History Observation Description Sex Assigned At Female Problems Problem Type SNOMED Code ICD Code Onset Dates Problem Status W/U Status Risk Notes Problem [id number] Recurrent major depressive episodes, moderate (F33.1) Active confirmed Vital Signs Heart Rate 86 /min 06/11/2024 Height-cm 162.56 cm 06/11/2024 Blood pressure diastolic 91 mm Hg 06/11/2024 Weight-kg 123.29 kg 06/11/2024 Height 64.00 in 06/11/2024 Blood pressure systolic 133 mm Hg 06/11/2024 Weight 271.8 lbs 06/11/2024 BMI 46.65 kg/m2 06/11/2024 Encounters Encounter Location Date Provider Diagnosis [facility] [address] [facility] [address] [place] [address] 06/11/2024 Thena Iwona Generalized anxiety disorder F41.1 and Major depressive disorder, recurrent, in partial remission F33.41 [facility] [address] [facility] [address] [place] [address] 10/15/2023 Thena Iwona Major depressive disorder, recurrent, in partial remission F33.41 and Generalized anxiety disorder F41.1 [facility] [address] [facility] [address] [place] [address] 11/18/2023 Provider Migration Generalized anxiety disorder F41.1 [facility] [address] [facility] [address] [place] [address] 11/19/2023 Provider Migration Generalized anxiety disorder F41.1 [facility], [facility] [address] [place] [address] 11/21/2023 Thena Iwona Major depressive disorder, recurrent, in partial remission F33.41 and Generalized anxiety disorder F41.1 [facility], [facility] [address] [place] [address] 02/20/2024 Mart Durham [facility], [facility] [address] [place] [address] 04/21/2024 Thena Iwona Recurrent major depressive episodes, moderate F33.1 and Generalized anxiety disorder F41.1 [facility], [facility] [address] [place] [address] 11/12/2023 Provider Migration [facility], [facility] [address] [place] [address] 11/18/2023 Provider Migration [facility], [facility] [address] [place] [address] 12/02/2023 Provider Migration [facility], [facility] [address] [place] [address] 12/30/2023 Provider Migration [facility], [facility] [address] [place] [address] 01/06/2024 Provider Migration [facility], [facility] [address] [place] [address] 02/03/2024 Provider Migration [facility], [facility] [address] [place] [address] 02/10/2024 Provider Migration [facility], [facility] [address] [place] [address] 02/14/2024 Provider Migration [facility], [facility] [address] [place] [address] 02/15/2024 Provider Migration [facility], [facility] [address] [place] [address] 06/14/2024 Thena Iwona Assessments Encounter Date Diagnosis (ICD Code) Assessment Notes Treatment Notes Treatment Clinical Notes Section Notes 06/11/2024 Major depressive disorder, recurrent, in partial remission (ICD-10 - F33.41) 06/11/2024 Generalized anxiety disorder (ICD-10 - F41.1) 11/19/2023 Generalized anxiety disorder (ICD-10 - F41.1) 11/18/2023 Generalized anxiety disorder (ICD-10 - F41.1) 04/21/2024 Generalized anxiety disorder (ICD-10 - F41.1) 04/21/2024 Recurrent major depressive episodes, moderate (ICD-10 - F33.1) 11/21/2023 Major depressive disorder, recurrent, in partial remission (ICD-10 - F33.41) 11/21/2023 Generalized anxiety disorder (ICD-10 - F41.1) 10/15/2023 Major depressive disorder, recurrent, in partial remission (ICD-10 - F33.41) 10/15/2023 Generalized anxiety disorder (ICD-10 - F41.1) Plan Of Treatment No Information Insurance Providers Payer Name Payer Address Payer Phone Subscriber Number Group Number Insured Name Patient Relationship to Insured Coverage Start Date Coverage End Date [facility] [address] [place] [address] [id number] SUMMER PHILLIPS Self - patient is the insured Medical (General) History Medical History History ICD Code Problems: Generalized anxiety disorder Recurrent major depression in partial re mission Severe obesity ,
--- OUTSIDE RECORDS SUMMARY | 2024-09-16 07:37 | XMS_ITS | Encounter Summary ---
Author Organization [facility] Address [address] [place] [address] Care Team Providers Care Certified Legal Investigator Name Role Phone Dionte Vega MD Primary Care Provider [phone] Reason for Referral * Radiology Services (Routine) - Closed Specialty Diagnoses / Procedures Referred By Jared bridges Referred To Contact Diagnoses Radial scar of breast Intraductal papilloma of breast, right Procedures MAMMO POST [place] [id number] [address] Referral ID Status Reason Start Date Expiration Date Visits Re quested Visits Authorized [id number] Closed 01/16/2021 02/16/2022 1 1 Reason for Visit * Auth/Cert Specialty Diagnoses / Procedures Referred By Jared bridges Referred To Contact Multi Specialty Diagnoses 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, right Procedures MN EXCISE BREAST LES W XRAY MARKER MN PERQ BREAST LOC DEVICE PLACEMT 1ST LESIO US IMAG MN PERQ DEVICE PLACEMT BREAST LOC 1ST LES W GUIDNCE RIGHT BREAST EXCISIONAL BIOPSY WITH NEEDLE LOCALIZATION [facility] [address] [place] [address] Referral ID Status Reason Start Date Expiration Date Visits Re quested Visits Authorized [id number] 1 1 Encounter Details Date Type Department Care Team (Latest Contact Info) Description 02/09/2021 8:44 AM CDT - 02/09/2021 11:59 PM CDT Hospital Encounter [facility] [place] [facility] [address] [place] [address] Discharge Disposition: Home or Self Care Social History Tobacco Use Types Packs/Day Years Used Date Smoking Tobacco: Former Cigarettes 1 10 1 - 07/02/2011 Smokeless Tobacco: Never Comments:off & on Alcohol Use Standard Drinks/Week Comments Yes 0 (1 standard drink = 0.6 oz pur e alcohol) 1 per month Sex and Gender Information Value Date Recorded Sex Assigned at Not on file Gender Identity Not on file Sexual Orientation Not on file COVID-19 Exposure Response Date Recorded In the last month, have you been in contact with someone who was confirmed or suspected to have Coronavirus / COVID-19? No / Unsure 02/09/2021 7:44 AM CDT documented as of this encounter Medications at Time of Discharge Medication Sig Dispensed Refills Start Date End Date HYDROcodone-acetaminophen (NORCO) 5-325 mg tabletIndications:Radial scar of breast,Intraductal papilloma of breast, right,Mastodynia,Duct ectasia, left,Mass of upper inner quadrant of right breast,Abnormality of right breast on screening mammogram Take 1 Tablet by mouth every 4 hours as needed for Pain, Moderate. Max Daily Amount: 6 Tablets 8 Tablet 02/09/2021 omeprazole (PriLOSEC) 40 mg Capsule, Delayed Release(E.C.) Take 40 mg by mouth daily at bedtime. metoprolol succinate (TOPROL XL) 50 mg Extended Release 24 hour tablet 100 mg. triamterene-hydroCHLOROth iazide (DYAZIDE) 37.5-25 mg capsule Take 1 Capsule by mouth daily in the morning. ESCITALOPRAM OXALATE ORAL Take by mouth. OM [id number] ST ORAL Take by mouth. evening primrose oil (EVENING PRIMROSE ORAL) Take by mouth. albuterol HFA 90 mcg inhaler INL 2 PFS PO Q 4 TO 6 H PRN 0 07/26/2019 magnesium oxide 500 mg Capsule Take by mouth. SAVELLA 50 mg tablet Take 50 mg by mouth 2 times daily. 3 06/09/2019 Pyridoxine 200 mg Tablet Sustained Release Take 300 mg by mouth. Cholecalciferol, Vitamin D3, 2,000 unit Capsule Take 2,000 Units by mouth. cyanocobalamin (VITAMIN B-12) 1,000 mcg Tablet Take 1,000 mcg by mouth daily. CALCIUM CITRATE ORAL Take 400 mg by mouth. documented as of this encounter Plan of Treatment Not on file documented as of this encounter Procedures Procedure Name Priority Date/Time Associated Diagnosis Comments MAMMO POST PROCEDURE MAMMO RIGHT Routine 02/09/2021 10:39 AM CDT Radial scar of breast Intraductal papilloma of breast, right documented in this encounter Results * MAMMO POST PROCEDURE MAMMO RIGHT (02/09/2021 10:39 AM CDT) Anatomical Region Laterality Modality Breast Right Mammography 02/09/2021 10:4 0 AM CDT Impressions 02/09/2021 3:16 PM CDT IMPRESSION: Needle localization for a postbiopsy clip in the upper inner right breast. Final pathology pending. DICTATION LOCATION: [facility] Narrative 02/09/2021 3:16 PM CDT ULTRASOUND GUIDED NEEDLE LOCALIZATION RIGHT BREAST, TWO-VIEW MAMMOGRAM AND SPECIMEN RADIOGRAPH 02/09/2021 ?? CLINICAL HISTORY: ?? Radial scar and papilloma. Needle localization of a postbiopsy clip in the upper inner right breast was performed. This was performed under sonographic guidance. The overlying skin was cleansed with ChloraPrep. 1% lidocaine buffered with sodium bicarbonate was injected for superficial anesthesia. Under sonographic guidance a 5 cm localization needle was placed with the tip adjacent to the mass. A small amount of methylene blue was injected. The wire was deployed and taped in place. Follow-up two-view mammogram demonstrated the wire to be in satisfactory position. Films were labeled, printed and sent to the OR. A specimen radiograph was obtained demonstrating the wire and clip. Findings called to the OR. Procedure Note Rubi Dotson MD - 02/09/2021 ULTRASOUND GUIDED NEEDLE LOCALIZATION RIGHT BREAST, TWO-VIEW MAMMOGRAM AND SPECIMEN RADIOGRAPH 02/09/2021 CLINICAL HISTORY: Radial scar and papilloma. Needle localization of a postbiopsy clip in the upper inner right breast was performed. This was performed under sonographic guidance. The overlying skin was cleansed with ChloraPrep. 1% lidocaine buffered with sodium bicarbonate was injected for superficial anesthesia. Under sonographic guidance a 5 cm localization needle was placed with the tip adjacent to the mass. A small amount of methylene blue was injected. The wire was deployed and taped in place. Follow-up two-view mammogram demonstrated the wire to be in satisfactory position. Films were labeled, printed and sent to the OR. A specimen radiograph was obtained demonstrating the wire and clip. Findings called to the OR. IMPRESSION: Needle localization for a postbiopsy clip in the upper inner right breast. Final pathology pending. DICTATION LOCATION: [facility] Erika Martinez MD MAMMO ORDERABLES documented in this encounter Visit Diagnoses Diagnosis Radial scar of breast Scar condition and fibrosis of skin Intraductal papilloma of breast, right documented in this encounter Care Teams Certified Legal Investigator Relationship Specialty Start Date End Date Dionte Vega MD [address] [place] [address] PCP - General Family Practice 05/25/10 documented as of this encounter
--- OUTSIDE RECORDS SUMMARY | 2024-09-16 07:37 | XMS_ITS | Encounter Summary ---
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 P16-pfwackhaqlzdp sections through inferior resection margin, or level 15. [facility] 02/14/2021 9:11 AM [facility] [employer] [facility] MICROSCOPIC DESCRIPTION The slides are labeled [id number] and Araceli Cedeno. The right breast upper inner quadrant excisional biopsy with needle localization shows a residual sclerosing lesion with florid usual ductal hyperplasia. There are a few rigid appearing spaces within the lesion which are negative for nuclear expression of ER and appear to show mosaic expression of CK5/6. There are prior biopsy site changes consisting of fibrosis and fat necrosis. The surrounding breast parenchyma shows fibrocystic changes with apocrine metaplasia, sclerosing adenosis, and foci of lactational change. No atypia or carcinoma is present. The residual lesion is 4 mm from the posterior margin. 02/14/2021 9:11 AM CDT [facility] OPERATIVE PROCEDURE BREAST BIOPSY 02/14/2021 9:11 AM T [facility] CLINICAL INFORMATION Radial scar of right breast [N64.89] Intraductal papilloma of breast, right [D24.1] N64.89-Radial scar of right breast D24.1-Intraductal papilloma of breast, right 02/14/2021 9:11 AM CDT [facility] COMMENT Special stain and/or immunohistochemical results are interpreted with controls that demonstrate appropriate staining reactions. Note on use of immunocytochemistry reagents: This test was developed and its performance characteristics determined by [facility], Department of Laboratory Medicine. It has not been cleared or approved by the U.S. Food and Drug Administration. The FDA has determined that such clearance or approval is not necessary. The test is used for clinical purposes. It should not be regarded as investigational or for research. This laboratory is certified to perform high complexity testing. Frozen section/operating room consultation, gross examination and dissection, and case sign out may have been performed in part or completely in the following laboratories: [facility], CLIA #[id number] [address] [place] [address] [facility], CLIA #[id number] [address] [place] [address] [facility] Michael/[place]se, [place] #[id number] [address] [place] [address] 02/14/2021 9:11 AM T [facility] Tissue RIGHT BREAST STRUCTURE / Unknown Collection / Unknown 02/09/2021 1:38 PM CDT 02/12/2021 6:16 AM CDT Nichole Mackey MD PATHOLOGY/CYTOLO GY ORDERABLES Performing Organization Address [facility]/State/ZIP Co de Phone Number [facility]# [id number] [address] [place] [address] * POC , URINE (02/09/2021 8:05 AM CDT) [facility] HCG QUAL URINE Negative Negative 02/09/2021 8:05 AM CDT [facility] [employer] [facility] ONCOLOGY PHARMACIST NAME POC JUDIE DUMONT 02/09/2021 8:05 AM CDT [facility] Urine 02/09/2021 8:05 AM CDT 02/09/2021 8:29 AM CDT Nichole Mackey MD POINT OF CARE TE STING Performing Organization Address [facility]/ZIP Co de Phone Number [facility]# [id number] [address] [place] [address] * 2019 NOVEL CORONAVIRUS (COVID-19) PCR DETECTION (02/02/2021 2:09 PM CDT) [facility] COVID-19 PCR NOT DETECTED Not Detected 02/04/20 12:30 AM CDT [facility] [employer] [facility] PERFORMING LAB [facility] 02/03/2021 12:30 AM CDT [facility] Upper Respiratory ENTIRE NASOPHARYNX / Unknown Collection / Unknown 02/02/2021 2:09 PM CDT 02/02/2021 7:18 PM CDT Narrative [facility] [employer] [facility] - 02/03/2021 12:30 AM CDT This test has been authorized by the FDA under an Emergency Use Authorization for use by authorized laboratories.?? This test has been validated in accordance with the FDA's guidance regarding Coronavirus Disease-2019 testing.?? Optimum specimen types and timing for peak viral levels during infection have not been determined.?? A negative RT-PCR result does not rule out infection with the 2019-Novel Coronavirus. Nichole Mackey MD MICROBIOLOGY - G ENERAL ORDERABLES [facility]# [id number] [address] [place] [address] documented in this encounter Visit Diagnoses Diagnosis Preop testing- Primary Preoperative examination, unspecified Radial scar of breast Scar condition and fibrosis of skin Intraductal papilloma of breast, right Mastodynia Duct ectasia, left Mass of upper inner quadrant of right breast Abnormality of right breast on screening mammogram Radial scar of right breast 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, right documented in this encounter Administered Medications Inactive Administered Medications - up to 3 most recent administrations Medication Order MAR Action Action Date Dose Rate Site bupivacaine HCl (MARCAINE, SENSORCAINE) 2.5 mg/mL (0.25%) 62.5 mg, lidocaine 1 % (XYLOCAINE) 250 mg INJECTION Infiltration, INTRA-PROCEDURE PRN, Starting on Fri02/09/21 at 1240, Until Fri02/09/21 at 1854, intra-op, Routine, Intra-op Given 02/09/2021 1:53 PM CDT 50 mL Operative Site diphenhydrAMINE (BENADRYL) injection 12.5 mg 12.5 mg, IV, POST-PROCEDURE Q 6 HOURS PRN, 2 doses, Starting on Fri02/09/21 at 1050, Until Fri02/09/21 at 1854, Itching, Nausea/Emesis, Routine, PACU fentaNYL PF (SUBLIMAZE) 50 mcg/mL injection 25 mcg 25 mcg, IV, POST-PROCEDURE Q 3 MINUTES PRN, 5 doses, Starting on Fri02/09/21 at 1050, Until Fri02/09/21 at 1854, Pain, Routine, PACU HYDROcodone-acetaminop hen (NORCO) 5-325 mg per tablet 1 Tablet 1 Tablet, Oral, EVERY 4 HOURS PRN, Starting on Fri02/09/21 at 1604, Until Fri02/09/21 at 1854, Pain (See admin instructions), Routine Given 02/09/2021 4:31 PM CDT 1 Tablet lactated ringers infusion IV, at 150 mL/hr, PRE-PROCEDURE CONTINUOUS, Starting on Fri02/09/21 at 0800, Until Fri02/09/21 at 1854, Routine New Bag 02/09/2021 8:14 AM CDT 150 mL/hr lactated ringers infusion IV, at 125 mL/hr, POST-PROCEDURE CONTINUOUS, Starting on Fri02/09/21 at 1100, Until Fri02/09/21 at 1854, Routine, PACU morphine 4 mg/mL injection 2 mg 2 mg, IV, POST-PROCEDURE Q 5 MINUTES PRN, 5 doses, Starting on Fri02/09/21 at 1050, Until Fri02/09/21 at 1854, Pain, Routine, PACU naloxone (NARCAN) 0.4 mg/mL injection 0.1 mg 0.1 mg, IV, SEE ADMIN INSTRUCTIONS, Starting on Fri02/09/21 at 1050, Until Fri02/09/21 at 1854, Routine, PACU ondansetron (ZOFRAN) 4 mg/2 mL injection 4 mg 4 mg, IV, POST-PROCEDURE ONCE PRN, 1 dose, Starting on Fri02/09/21 at 1050, Until Fri02/09/21 at 1854, Nausea/Emesis, Routine, PACU ondansetron (ZOFRAN) 4 mg/2 mL injection 4 mg 4 mg, IV, POST-PROCEDURE ONCE PRN, 1 dose, Starting on Fri02/09/21 at 1050, Until Fri02/09/21 at 1453, Nausea/Emesis, Routine, PACU Given 02/09/2021 2:53 PM CDT 4 mg sodium chloride 0.9 % irrigation solution INTRA-PROCEDURE PRN, Starting on Fri02/09/21 at 1354, Until Fri02/09/21 at 1428, Routine, Intra-op Given 02/09/2021 1:54 PM CDT 500 mL Operative Site documented in this encounter Active and Recently Administered Medications Times are shown in CDT. Scheduled Medication Order 02/07/2021 02/08/2021 02/09/2021 ceFAZolin (ANCEF,KEFZOL) 3000 mg in sterile water 30 mL injection syringe (PREMIX) 3,000 mg (COMPLETED) 3,000 mg, IV, PRE-PROCEDURE ONCE, 1 dose, Starting on Fri02/09/21 at 0744, Until Fri02/09/21 at 1320, Routine, Pre-op, Antibiotic Indication: Surgical prophylaxis 1320 (Given - Provid er: YOUSIF Terrell) naloxone (NARCAN) 0.4 mg/mL injection 0.1 mg 0.1 mg, IV, SEE ADMIN INSTRUCTIONS, Starting on Fri02/09/21 at 1050, Until Fri02/09/21 at 1854, Routine, PACU Continuous Medication Order 02/07/2021 02/08/2021 02/09/2021 lactated ringers infusion IV, at 150 mL/hr, PRE-PROCEDURE CONTINUOUS, Starting on Fri02/09/21 at 0800, Until Fri02/09/21 at 1854, Routine 0814 ([facility] - Prov ider: Gabi Tsai RN) lactated ringers infusion IV, at 125 mL/hr, POST-PROCEDURE CONTINUOUS, Starting on Fri02/09/21 at 1100, Until Fri02/09/21 at 1854, Routine, PACU 1100 (Due) PRN Medication Order 02/07/2021 02/08/2021 02/09/2021 bupivacaine HCl (MARCAINE, SENSORCAINE) 2.5 mg/mL (0.25%) 62.5 mg, lidocaine 1 % (XYLOCAINE) 250 mg INJECTION Infiltration, INTRA-PROCEDURE PRN, Starting on Fri02/09/21 at 1240, Until Fri02/09/21 at 1854, intra-op, Routine, Intra-op 1353 (Given - Provid er: Nichole Mackey MD) diphenhydrAMINE (BENADRYL) injection 12.5 mg 12.5 mg, IV, POST-PROCEDURE Q 6 HOURS PRN, 2 doses, Starting on Fri02/09/21 at 1050, Until Fri02/09/21 at 1854, Itching, Nausea/Emesis, Routine, PACU fentaNYL PF (SUBLIMAZE) 50 mcg/mL injection 25 mcg 25 mcg, IV, POST-PROCEDURE Q 3 MINUTES PRN, 5 doses, Starting on Fri02/09/21 at 1050, Until Fri02/09/21 at 1854, Pain, Routine, PACU HYDROcodone-acetaminophen (NORCO) 5-325 mg per tablet 1 Tablet 1 Tablet, Oral, EVERY 4 HOURS PRN, Starting on Fri02/09/21 at 1604, Until Fri02/09/21 at 1854, Pain (See admin instructions), Routine 1631 (Given - Provid er: Patricia Lam RN) morphine 4 mg/mL injection 2 mg 2 mg, IV, POST-PROCEDURE Q 5 MINUTES PRN, 5 doses, Starting on Fri02/09/21 at 1050, Until Fri02/09/21 at 1854, Pain, Routine, PACU ondansetron (ZOFRAN) 4 mg/2 mL injection 4 mg 4 mg, IV, POST-PROCEDURE ONCE PRN, 1 dose, Starting on Fri02/09/21 at 1050, Until Fri02/09/21 at 1854, Nausea/Emesis, Routine, PACU 1452 (Canceled Entry - Provider: Sallie Higuera RN - Comment: Zofran given under other order) ondansetron (ZOFRAN) 4 mg/2 mL injection 4 mg (COMPLETED) 4 mg, IV, POST-PROCEDURE ONCE PRN, 1 dose, Starting on Fri02/09/21 at 1050, Until Fri02/09/21 at 1453, Nausea/Emesis, Routine, PACU 1453 (Given - Provid er: Sallie Higuera RN) sodium chloride 0.9 % irrigation solution (CANCELED) INTRA-PROCEDURE PRN, Starting on Fri02/09/21 at 1354, Until Fri02/09/21 at 1428, Routine, Intra-op 1354 (Given - Provid er: Nichole Mackey MD - Comment: on field and prn procedure) documented in this encounter Care Teams Brass Cleaner Relationship Specialty Start Date End Date Dionte Vega MD [address] [place] [address] PCP - General Family Practice 05/25/10 documented as of this encounter
--- OUTSIDE RECORDS SUMMARY | 2024-09-16 07:37 | XMS_ITS | Clinical Summary ---
Author Organization [facility] Address [address] [place] [phone] Phone Care Team Providers Care Bone Char Puller Name Role Phone Dionte Vega MD Primary Care Provider Allergies Active Allergy Reactions Criticality Noted Date Comments Fluconazole Anxiety Low 01/16/2021 Promethazine Anxiety Low 05/25/2010 Medications Medication Sig Dispensed Refills Start Date End Date Status magnesium oxide 500 mg Capsule Take by mouth. Active SAVELLA 50 mg tablet Take 50 mg by mouth 2 times daily. 3 06/09/2019 Active Pyridoxine 200 mg Tablet Sustained Release Take 300 mg by mouth. Active Cholecalciferol, Vitamin D3, 2,000 unit Capsule Take 2,000 Units by mouth. Active cyanocobalamin (VITAMIN B-12) 1,000 mcg Tablet Take 1,000 mcg by mouth daily. Active CALCIUM CITRATE ORAL Take 400 mg by mouth. Active albuterol HFA 90 mcg inhaler INL 2 PFS PO Q 4 TO 6 H PRN 0 07/26/2019 Active metoprolol succinate (TOPROL XL) 50 mg Extended Release 24 hour tablet 100 mg. Active triamterene-hydroCHLO ROthiazide (DYAZIDE) 37.5-25 mg capsule Take 1 Capsule by mouth daily in the morning. Active ESCITALOPRAM OXALATE ORAL Take by mouth. Active OM 3-TRM-ZLO-K53-AQ-P6-L HYTOST ORAL Take by mouth. Active evening primrose oil (EVENING PRIMROSE ORAL) Take by mouth. Active omeprazole (PriLOSEC) 40 mg Capsule, Delayed Release(E.C.) Take 40 mg by mouth daily at bedtime. Active HYDROcodone-acetamino phen (NORCO) 5-325 mg tabletIndications:Rad ial scar of breast,Intraductal papilloma of breast, right,Mastodynia,Duct ectasia, left,Mass of upper inner quadrant of right breast,Abnormality of right breast on screening mammogram Take 1 Tablet by mouth every 4 hours as needed for Pain, Moderate. Max Daily Amount: 6 Tablets 8 Tablet 02/09/2021 Active Active Problems Problem Noted Date Diagnosed Date Intraductal papilloma of breast, right Radial scar of breast 01/16/2021 Mass of upper inner quadrant of right breast Abnormality of right breast on screening mammogr am 12/12/2020 Duct ectasia, left 08/09/2019 Mastodynia 07/02/2019 Left breast lump 07/02/2019 Morbid obesity with body mass index of 40.0-49.9 Resolved Problems Problem Noted Date Diagnosed Date Resolved Date Abnormal ultrasound of breast 07/02/2019 08/09/2019 Immunizations Name Administration Dates Next Due ([employer])(12 YR UP) COVID-19 VACCINE - EMERGENCY USE AUTHORIZATION, MRNA, [id number](PF) 30 MCG/0.3 ML IM SUSP 12/29/2020,11/30/2020 Family History Medical History Relation Name Comments Cancer Maternal Grandfather Colon Cancer Maternal Grandfather Breast Cancer Paternal Grandmother Cancer Paternal Grandmother Lung Cancer Paternal Grandmother Ovarian Cancer Neg Hx Pancreatic Cancer Neg Hx Relation Name Status Comments Maternal Grandfather Paternal Grandmother Social History Tobacco Use Types Packs/Day Years [...] Sign Reading Time Taken Comments Blood Pressure 138/88 02/09/2021 4:36 PM CDT Pulse 89 02/09/2021 4:36 PM CDT Temperature 36.5 ??C (97.7 ??F) 02/09/2021 4:36 PM CD T Respiratory Rate 18 02/09/2021 3:14 PM CDT Oxygen Saturation 97% 02/09/2021 4:36 PM CDT Inhaled Oxygen Concentration - - Weight 128.8 kg (283 lb 14.4 oz) 02/09/2021 7:46 AM CDT Height 162.6 cm (5' 4 ) 02/09/2021 7:46 AM CDT Body Mass Index 48.73 02/09/2021 7:46 AM CDT Plan of Treatment Health Maintenance Due Date Last Done Comments Pre-Diabetes and Diabetes Screening 1984 DTAP/TDAP/TD VACCINES (1 - Tdap) 2003 HEPATITIS B VACCINES (1 of 3 - 19+ 3-dose series) 2003 CERVICAL CANCER SCREENING 2014 BREAST CANCER SCREENING 2024 11/08/19, 04/15/2019, 04/15/2019 INFLUENZA VACCINE (#1) 2024 COVID-19 Vaccine (3 - 2023-2 5 season) 2024 12/29/2020, 11/30/2020 HPV VACCINES Aged Out No longer eligi ble based on patient's age to complete this topic PNEUMOCOCCAL VACCINE 0-64 YEARS Aged Out No longer eligible b ased on patient's age to complete this topic Medical Devices Implanted Type Area Features Reporter Device Identifier Shelf Expiration Date Model / Serial / Lot Hemostatic Surgicel 2x3in 1953 - [id number] Implanted:Qty : 1 on 02/09/2021 by Erika Martinez MD at [facility] Hemostatic Right: Breast [employer] [id number] 10/29/20241952 / / [id number] Breast Biopsy Clips-Bilater al Procedures Procedure Name Priority Date/Time Associated Diagnosis Comments MAMMO DIAG BILAT 3D AN W O R WO CAD Routine 11/08/2020 from Last 3 Months or Most Recently Relevant to Health Maintenance Results * (ABNORMAL) MAMMO DIAG BILAT 3D AN W OR WO CAD (11/08/2020) Anatomical Region Laterality Modality Breast Bilateral Other Abstract Provider MAMMO ORDERABLES from Last 3 Months or Most Recently Relevant to Health Maintenance Care Teams Bone Char Puller Relationship Specialty Start Date End Date Dionte Vega MD [address] [place] [address] PCP - General Family Practice 05/25/10
--- OUTSIDE RECORDS SUMMARY | 2024-09-16 07:37 | XMS_ITS | Encounter Summary ---
Author Organization [facility] Address [address] [place] [address] Care Team Providers Care Hydraulic Assembler Name Role Phone Dionte Vega MD Primary Care Provider [phone] Reason for Visit * Reason Onset Date Comments Results 02/15/2021 Encounter Details Date Type Department Care Team (Late st Contact Info) Description 02/15/2021 Telephone [facility] BREAST SURGERY - CLY[place]ander CLRKSN [address] [facility] [address] [place] [address] [place] [address] [facility] [address] [place] [address] Results Social History Tobacco Use Types Packs/Day Years [...] encounter Miscellaneous Notes * Telephone Encounter - Erika Martinez MD - 02/15/2021 8:23 AM CDT Araceli Cedeno 1985 02/15/2021 8:23 AM I called the patient today to discuss her pathology results from surgery. Surgery : Right Breast Excisional Biopsy With Needle Localization - Right done on 02/09/2021 Pathology: Results for orders placed or performed during the hospital encounter of 02/09/21 PATHOLOGY Result Value Ref Range CASE REPORT Surgical Pathology Report Case: [id number] Authorizing Provider: Erika Martinez MD Collected: 02/09/2021 01:38 PM Ordering Location: [facility] Received: 02/12/2021 06:16 AM Operating Room Pathologist: Jed Contreras MD Specimen: Breast, right, Upper inner quadrant, short superior, long lateral FINAL DIAGNOSIS Breast, right, upper inner quadrant, excisional biopsy with needle localization: - 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 - Margins negative; 4 mm from posterior margin. - Sclerosing adenosis. - Fibrocystic changes and lactational change. - Prior biopsy site ([id number]). GROSS DESCRIPTION The specimen is received fresh in a single container labeled Araceli Cedeno, right breast upperinner quadrant and consists of a single piece [...] inferior aspect of the specimen. A radiograph isnot received with the tissue. The anterior margin is inked yellow, the posterior black, the medial blue, and the lateral green. The tissue is serially sectioned from superior to inferior into 15 levels to reveal yellow- cordova, lobulated adipose tissue and a small amount [...] other palpable lesions or calcifications are identified. Scoreboard Operator sections are submitted as follows: A1 and A2-perpendicular sections through superior resection margin, or level 1; A3 and A4-level 3; A5 through A7-level 5; A8 through R44-jhyoz 6; A11 through Y69-puswj 7; A14 and G37-erhjr 9; A16 and A17- level 11; A18 and J70-icwfe 13; A20 and O54-qbruggovadahm sections through inferior resection margin, or level 15. [facility] MICROSCOPIC DESCRIPTION The slides are labeled [id number] and Araceli Cedeno. The right breast upper inner quadrant excisional biopsy with needle localization shows a residual sclerosing lesion with florid usual ductal hyperplasia. There are a few rigid appearing spaces withinthe lesion which are negative for nuclear expression of ER and appear to show mosaic expression of CK5/6. There are prior biopsy site changes consisting of fibrosis and fat necrosis. The surrounding b reast parenchyma shows fibrocystic changes with apocrine metaplasia, sclerosing adenosis, and foci of lactational change. No atypia or carcinoma is present. The residual lesion is 4 mm from the posterior margin. OPERATIVE PROCEDURE BREAST BIOPSY CLINICAL INFORMATION Radial scar of right breast [N64.89] Intraductal papilloma of breast, right [D24.1] N64.89-Radial scar of right breast D24.1-Intraductal papilloma of breast, right COMMENT Special stain and/or immunohistochemical results are interpreted with controls that demonstrate appropriate staining reactions. Note on use of immunocytochemistry reagents: This test was developed and its performance characteristics determined by [facility], Department of Laboratory Medicine. It has not [...] examination and dissection, and case sign out mayhave been performed in part or completely in the following laboratories: [facility], [facility] #[id number] [place] [address] [facility], [facility] #[id number] [address] [place] [address] [facility]/Jesse, [facility] #[id number] [address] [place] [address] I explained that her results were benign, without any evidence of a high risk or malignant finding.I answered her preliminary questions. She will come into the office in 1-2 weeks for a postoperative visit to have a more thorough discussion and assess wound healing. Erika Martinez MD documented in this encounter Plan of Treatment Not on file documented as of this encounter Visit Diagnoses Diagnosis Radial scar of breast- Primary Scar condition and fibrosis of skin documented in this encounter Care Teams Hydraulic Assembler Relationship Specialty Start Date End Date Dionte Vega MD [address] [place] [address] PCP - General Family Practice 05/25/10 documented as of this encounter
--- OUTSIDE RECORDS SUMMARY | 2024-09-16 07:37 | XMS_ITS | Encounter Summary ---
Author Organization [facility] Address [address] [facility] Attn: Epic Prelude ADT [place] [address] Care Team Providers Care Mailroom Messenger Name Role Phone Dionte Vega MD Primary Care Provider [phone] Encounter Details Date Type Department Care Team (Latest Contact Info) Description 02/09/2021 Travel Social History Tobacco Use Types Packs/Day [...] on filedocumented in this encounter Care Teams Mailroom Messenger Relationship Specialty Start Date End Date Dionte Vega MD [address] [place] [id number] PCP - General Family Practice 05/25/10 documented as of this encounter
--- OUTSIDE RECORDS SUMMARY | 2024-09-16 07:37 | XMS_ITS | Encounter Summary ---
Author Organization [facility] Address [address] [place] [address] Care Team Providers Care Horticulture Instructor Name Role Phone Dionte Vega MD Primary Care Provider [phone] Reason for Visit * Auth/Cert Specialty Diagnoses / Procedures Referred By Jared bridges Referred To Contact Multi Specialty Diagnoses 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, right Procedures NJ EXCISE BREAST LES W XRAY MARKER NJ PERQ BREAST LOC DEVICE PLACEMT 1ST LESIO US IMAG [place] PERQ DEVICE PLACEMT BREAST LOC 1ST LES W GUIDNCE RIGHT BREAST EXCISIONAL BIOPSY WITH NEEDLE LOCALIZATION [facility] [address] [place] [address] Referral ID Status Reason Start Date Expiration Date Visits Re quested Visits Authorized [id number] 1 1 Encounter Details Date Type Department Care Team (Latest Contact Info) Description 02/09/2021 8:43 AM CDT - 02/09/2021 11:59 PM CDT Hospital Encounter [facility] [address] [place] [address] [place] [id number] [facility] [address] [place] [address] Discharge Disposition: Home or Self Care Social [...] ESCITALOPRAM OXALATE ORAL Take by mouth. OM [id number] ST ORAL Take by mouth. evening primrose [...] Name Priority Date/Time Associated Diagnosis Comments MAMMO US GUIDED BREAST LOCAL Routine 02/09/2021 10:40 AM CDT Radial scar of breast Intraductal papilloma of breast, right documented in this encounter Results * MAMMO US GUIDE NEEDLE PLACEMENT (02/09/2021 10:40 AM CDT) Anatomical Region Laterality Modality Breast N/A Ultrasound 02/09/2021 10:4 0 AM CDT Impressions 02/09/2021 3:16 PM CDT IMPRESSION: Needle localization for a postbiopsy clip in the upper inner right breast. Final pathology pending. DICTATION LOCATION: [facility] Narrative 02/09/2021 3:16 PM CDT ULTRASOUND GUIDED [...] and clip. Findings called to the OR. Erika Martinez MD MAMMO ORDERABLES documented in this encounter Visit Diagnoses Diagnosis Radial scar of breast Scar condition and fibrosis of skin Intraductal papilloma of breast, right documented in this encounter Administered Medications Inactive Administered Medications - up to 3 most recent administrations Medication Order MAR Action Action Date Dose Rate Site lidocaine PF 1% (XYLOCAINE MPF) injection 30 mL 30 mL, See Admin Instructions, ONE TIME ONLY, 1 dose, On Fri02/09/21 at 0930, Routine Admin by Another Clinician (Comment) 02/09/2021 9:15 AM CDT 10 mL Operative Site methylene blue (PROVAYBLUE) 5 mg/mL (0.5 %) injection 50 mg 50 mg (10 mL), See Admin Instructions, ONE TIME ONLY, 1 dose, On Fri02/09/21 at 0930, Routine Admin by Another Clinician (Comment) 02/09/2021 9:15 AM CDT 0.5 mg Operative Site sodium bicarbonate 4.2 % (0.5 mEq/mL) syringe 5 mEq 5 mEq, See Admin Instructions, ONE TIME ONLY, 1 dose, On Fri02/09/21 at 0930, Routine Bolus 02/09/2021 9:15 AM CDT 2 mEq Operative Site documented in this encounter Care Teams Horticulture Instructor Relationship Specialty Start Date End Date Dionte Vega MD [address] [place] [address] PCP - General Family Practice 05/25/10 documented as of this encounter
--- OUTSIDE RECORDS SUMMARY | 2024-09-16 07:38 | XMS_ITS | Encounter Summary ---
Author Organization [facility] Address 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, right Procedures RI EXCISE BREAST LES W XRAY MARKER RI PERQ BREAST LOC DEVICE PLACEMT 1ST LESIO US IMAG RI PERQ DEVICE PLACEMT BREAST LOC 1ST LES W GUIDNCE RIGHT BREAST EXCISIONAL BIOPSY WITH NEEDLE LOCALIZATION [facility] [address] [place] [address] Referral ID Status Reason Start Date Expiration Date Visits Re quested Visits Authorized [id number] 1 1 Encounter Details Date Type Department Care Team (Late st Contact Info) Description 02/09/2021 1:12 PM CDT Anesthesia Event [facility] Operating Room [address] [place] [address] David Hansen MD [address] [place] [address] Anesthesia Record Procedure Summary Procedure Name Responsible Anesthesiologist Anesthesia Start Time Anesthesia Stop Time RIGHT BREAST EXCISIONAL BIOPSY WITH NEEDLE LOCALIZATION (Right: Breast) David Hansen MD 02/09/21 1312 02/09/21 1432 Events Date Time Event Comment 02/09/2021 1050 1305 In Room This event disp lays the In Room time documented in the Surgical Log. Deleting this event will not remove it from the log but will remove it from the Grid and Graph timeline. 1312 An Start 1312 An Start Data 1312 Pre-Induction Immediate pre- induction anesthetic assessment performed. Vital signs as noted on graphic. 1314 An Induction 1316 An LMA 1317 Anesthesia Ready 1327 Procedure Start This event d isplays the Procedure Start time documented in the Surgical Log. Deleting this event will not remove it from the log but will remove it from the Grid and Graph timeline. 1413 Procedure Stop This event di splays the Procedure Stop time documented in the Surgical Log. Deleting this event will not remove it from the log but will remove it from the Grid and Graph timeline. 1416 Supraglottic Removed Spontan eous respirations. LMA discontinued without difficulty. Oropharynx suctioned as indicated. 1427 an stop data 1427 Out of Room This event disp lays the Out of Room time documented in the Surgical Log. Deleting this event will not remove it from the log but will remove it from the Grid and Graph timeline. 1432 An Stop Meds Name Total ceFAZolin (ANCEF,KEFZOL) 300 0 mg in sterile water 30 mL injection syringe (PREMIX) 3,000 mg 3,000 mg propofol (DIPRIVAN) 10??mg/mL injection 320 mg lidocaine (XYLOCAINE) 2% injection 60 mg fentaNYL (SUBLIMAZE) PF 50??mcg/mL injec tion 100 mcg dexamethasone (DECADRON) 4 mg/mL injecti on 4 mg famotidine (pf) (PEPCID) 20 mg/2 mL inje ction 20 mg ondansetron (ZOFRAN) 4??mg/2 mL injectio n 4 mg midazolam PF (VERSED) 1 mg/mL injection 2 mg glycopyrrolate (ROBINUL) 0.4 mg/2 mL (0. 2 mg/mL) syringe 0.4 mg ketamine (KETALAR) 50??mg/mL injection 4 0 mg lactated ringers infusion 0 mL * Agents Name N2O Sevoflurane % Isoflurane % Sevoflurane Isoflurane O2 N2O Inspired N2O O2 * Blood No blood administrations on file. Lines, Drains, and Airways Type Details Placement Removal Peripheral IV Pre-Hospital Start: No; Orientation: Left, Posterior; Location: Hand; Device: Angiocath; Gauge: 20 gauge; Needle Length: 1 in length; Insertion Attempts: 1; Patient Tolerance: tolerated well; Removal Indication: no longer indicated, removed per policy, removed per order; Removal Interventions: pressure dressing, catheter intact, direct pressure 02/09/21 0813 by Gabi Tsai RN 02/09/21 1647 by Patricia Lam RN Supraglottic Airway Mask Shai: ventilated by mask; Type: LMA; Size: 4; Attempts: 1; Confirmation: satisfactory chest rise, SAO2, end tidal CO2 02/09/21 1316 by Ginna Kelly AA-C 02/09/21 1416 by Ginna Kelly AA-C Incision 02/09/21; 1358; surg ical incision; Right; breast; 02/10/21; 0454 02/09/21 1358 by Dolores Phillips RN 02/10/21 0454 by PROVIDER, DISCHARGE PATIENT documented in this encounter Social History Tobacco [...] AM CDT documented as of this encounter OR Notes * Anesthesia Postprocedure Evaluation - Yosvany Love MD - 02/09/2021 2:51 PM CDT Phase I Postanesthesia Evaluation Including Modified Christo Score Patient seen and evaluated: Modified Christo Score: Score: 9 (02/09/21 143) COMMENTS: No apparent Anesthesia related complications RESPIRATORY FUNCTION: Respiration: able to breath and cough freely (02/09/21 143) [2=able to breathe and cough freely, 1=dyspnea, limited breathing or tachypnea, 0=apnea or mechanicventilator] O2 Saturation: able to maintain O2 saturation greater than 92% on room air (02/09/211438) [2=able to maintain O2 saturation greater than 92% on room air, 1=needs O2 inhalation to maintain O2 saturation greater than 90%, 0=O2 saturation less than 90% even with O2 supplement] Resp: 18 (02/09/21 144)SpO2: 94 % (02/09/21 1445) CARDIOVASCULAR FUNCTION: Heart Rate: 95 bpm (02/09/21 144) BP: 123/82 (02/09/21 1445) Circulation: BP within 20% of preanesthetic level (02/09/211438) [2=BP within 20% of preanesthetic level, 1=BP within 20-49% of preanesthetic level, 0=BP within 50%of preanesthetic level] MENTAL STATUS, NEURO, ACTIVITY: PATIENT PARTICIPATION IN EVALUATION:yes Consciousness: arousable on calling (02/09/211438) [2=fully awake, 1=arousable on calling, 0=not responding] Activity: able to move 4 extremities voluntarily or on command (02/09/211438) [2=able to move 4 extremities voluntarily or on command, 1=able to move 2 extremities voluntarily or on command, 0=unable to move extremities voluntarily or on command] TEMPERATURE: Temp: 36.4 ??C (02/09/211428) PAIN: Pain Rating: Rest: 1 (02/09/21 0814) NAUSEA AND VOMITING: no nausea and no vomiting POSTOPERATIVE HYDRATION: well hydrated Intake/Output Summary (Last 24 hours) at 02/09/2021 1451 Last data filed at 02/09/2021 1320 Gross per 24 hour Intake 30 ml Output -- Net 30 ml Yosvany Love MD 02/09/2021 2:51 PM Post Anesthesia Evaluation Vitals: Vitals Value Taken Time BP 123/82 02/09/21 1445 Temp 36.4 ??C 02/09/211428 Resp 22 02/09/21 144 SpO2 97 % 02/09/211448 Pulse 108 05/14/21 1449 Heart Rate 110 bpm 02/09/21 1449 Vitals shown include unvalidated device data. Pain Rating: Pain Rating: Rest: 1 (02/09/21 0814) Anesthesia Post Evaluation Yosvany Love MD * Anesthesia Handoff - Ginna Kelly AA-C - 02/09/2021 2:31 PM CDT Post-Anesthetic transfer of care report elements to appropriate post-anesthesia recovery environment completed in accordance with procedure. I completed my handoff to the receiving nurse during which we: 1. Identified the patient 2. Identified the responsible provider 3. Reviewed the pertinent medical history 4. Discussed the surgical course 5. Reviewed intra-op anesthesia management and issues during anesthesia 6. Set expectations for post-procedure period 7. Orders as necessary and appropriate for continuation of care are present in Epic. 8. Allowed opportunity for questions and acknowledgement of understanding. Vital Signs: BP: 133/83 Pulse: 93 Temp: 36.2 ??C Resp: 18 SpO2: 100% 2:31 PM YOUSIF Terrell * Anesthesia Preprocedure Evaluation - David Hansen MD - 02/09/2021 10:48 AM CDT Relevant Problems No relevant active problems Anesthesia Evaluation Patient summary reviewed Airway TM distance: >3 FB Neck ROM: full Dental - normal exam Pulmonary - normal exam breath sounds clear to auscultation (+) asthma, sleep apnea, Cardiovascular - normal exam (+) hypertension, dysrhythmias, Rhythm: regular Rate: normal ROS comment: HX ASTHMA KENZIE CPAP HTN GERD PVC No cp angina, no known ASCAD, good et Neuro/Psych - negative ROS GI/Hepatic/Renal (+) GERD, PUD, Endo/Other - negative ROS Abdominal Anesthesia History Anesthesia Plan ASA Final: 3 General Intravenous induction Supraglottic airway maintenance NPO status > 8 hours Anesthetic plan and risks discussed with Patient. Plan discussed with Surgeon and Other. Post-op Pain Control Plan to use IV or IM medication for post-op pain control. Smoking Compliance Patient did not smoke on day of surgery documented in this encounter Plan of Treatment Not on file documented as of this encounter Visit Diagnoses Not on filedocumented in this encounter Administered Medications Inactive Administered Medications - up to 3 most recent administrations Medication Order MAR Action Action Date Dose Rate Site ceFAZolin (ANCEF,KEFZOL) 3000 mg in sterile water 30 mL injection syringe (PREMIX) 3,000 mg 3,000 mg, IV, PRE-PROCEDURE ONCE, 1 dose, Starting on Fri02/09/21 at 0744, Until Fri02/09/21 at 1320, Routine, Pre-op, Antibiotic Indication: Surgical prophylaxis Given 02/09/2021 1:20 PM CDT 3,000 mg dexamethasone (DECADRON) 4 mg/mL injection IV, INTRA-PROCEDURE PRN, Starting on Fri02/09/21 at 1323, Until Fri02/09/21 at 1432, Routine, Anesthesia Intra-op Given 02/09/2021 1:23 PM CDT 4 mg famotidine PF (PEPCID) 20 mg/2 mL injection IV, INTRA-PROCEDURE PRN, Starting on Fri02/09/21 at 1326, Until Fri02/09/21 at 1432, Routine, Anesthesia Intra-op Given 02/09/2021 1:26 PM CDT 20 mg fentaNYL PF (SUBLIMAZE) 50 mcg/mL injection IV, INTRA-PROCEDURE PRN, Starting on Fri02/09/21 at 1314, Until Fri02/09/21 at 1432, Routine, Anesthesia Intra-op Given 02/09/2021 1:22 PM CDT 50 mcg Given 02/09/2021 1:14 PM CDT 50 mcg glycopyrrolate (ROBINUL) injection IV, INTRA-PROCEDURE PRN, Starting on Fri02/09/21 at 1312, Until Fri02/09/21 at 1432, Routine, Anesthesia Intra-op Given 02/09/2021 1:19 PM CDT 0.2 mg Given 02/09/2021 1:12 PM CDT 0.2 mg ketamine (KETALAR) 50 mg/mL injection IV, INTRA-PROCEDURE PRN, Starting on Fri02/09/21 at 1335, Until Fri02/09/21 at 1432, Routine, Anesthesia Intra-op Given 02/09/2021 1:35 PM CDT 40 mg lidocaine 2 % (XYLOCAINE) injection IV, INTRA-PROCEDURE PRN, Starting on Fri02/09/21 at 1314, Until Fri02/09/21 at 1432, Routine, Anesthesia Intra-op Given 02/09/2021 1:14 PM CDT 60 mg midazolam (PF) (VERSED) injection IV, INTRA-PROCEDURE PRN, Starting on Fri02/09/21 at 1312, Until Fri02/09/21 at 1432, Routine, Anesthesia Intra-op Given 02/09/2021 1:12 PM CDT 2 mg ondansetron (ZOFRAN) 4 mg/2 mL injection IV, INTRA-PROCEDURE PRN, Starting on Fri02/09/21 at 1326, Until Fri02/09/21 at 1432, Routine, Anesthesia Intra-op Given 02/09/2021 1:26 PM CDT 4 mg propofoL (DIPRIVAN) injection IV, INTRA-PROCEDURE PRN, Starting on Fri02/09/21 at 1314, Until Fri02/09/21 at 1432, Anesthesia Intra-op Given 02/09/2021 1:14 PM CDT 320 mg documented in this encounter Care Teams International Marketing Coordinator Relationship Specialty Start Date End Date Dionte Vega MD [address] [place] [address] PCP - General Family Practice 05/25/10 documented as of this encounter
--- OUTSIDE RECORDS SUMMARY | 2024-09-16 07:38 | XMS_ITS | Encounter Summary ---
Author Organization [facility] Address [address] Attn: Epic Prelude ADT [place] [address] Care Team Providers Care Epic Analyst Name Role Phone Dionte Vega MD Primary Care Provider [phone] Encounter Details Date Type Department Care Team (Latest Contact Info) Description 02/06/2021 Travel Social History Tobacco Use Types Packs/Day [...] have Coronavirus / COVID-19? No / Unsure 02/06/2021 3:24 PM CDT documented as of this encounter Plan of Treatment Not on file documented as of this encounter Visit Diagnoses Not on filedocumented in this encounter Care Teams Epic Analyst Relationship Specialty Start Date End Date Dionte Vega MD [address] [place] [id number] PCP - General Family Practice 05/25/10 documented as of this encounter
--- OUTSIDE RECORDS SUMMARY | 2024-09-16 07:38 | XMS_ITS | Encounter Summary ---
Author Organization [facility] Address [address] [place] [address] Care Team Providers Care Media Relations Associate Name Role Phone Dionte Vega MD Primary Care Provider [phone] [phone] Reason for Visit * Auth/Cert Specialty Diagnoses / Procedures Referred By Jared bridges Referred To Contact Multi Specialty Diagnoses 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, right Procedures TN EXCISE BREAST LES W XRAY MARKER TN PERQ BREAST LOC DEVICE PLACEMT 1ST LESIO US IMAG TN PERQ DEVICE PLACEMT BREAST LOC 1ST LES W GUIDNCE RIGHT BREAST EXCISIONAL BIOPSY WITH NEEDLE LOCALIZATION [facility] [address] [place] [address] Referral ID Status Reason Start Date Expiration Date Visits Re quested Visits Authorized [id number] 1 1 Encounter Details Date Type Department Care Team (Latest Contact Info) Description 02/09/2021 7:35 AM CDT - 02/09/2021 4:54 PM CDT Hospital Encounter [facility] [address] [place] [address] [place] [address] [facility] [address] [place] [address] Radial scar of right breast Discharge Disposition: Home or Self Care Social [...] Lam RN - 02/09/2021 3:09 PM CDT [facility] [address] [place] [address] Post operative instructions: Activity: _x__Walk around every [...] OK to supplementfor break through pain with Anderson/ Hydrocodone 5mg / Acetaminophen 500mg. Do not [...] today _x__ Recommend wearing a supportive bra / x 7 days at minimum _x__ May use ice bag or warm compresses on incision for minor swelling and discomfort _x__ Call office or exchange if fever, redness, swelling, drainage PLEASE EMAIL IN 2 DAYS VIA MY RENETTA: - TO LET ME KNOW HOW YOU ARE DOING - TO LET ME KNOW IF YOU NEED REFILLS - ANY PROBLEMS OR QUESTIONS If you have any questions, please call the office at between the hours of 9AM and 4PMMond through Friday. After hours for emergencies, you may call this number to be connected to theJooix service. Nichole Mackey MD Breast Surgical Oncology [...] or come to the Emergency Room at [facility] ([phone]) or the nearest Emergency Room. In an [...] ESCITALOPRAM OXALATE ORAL Take by mouth. OM [id number] ST ORAL Take by mouth. evening primrose [...] treated by Dr. Torrez, breast surgeon at [facility] in [place] on 08/09/19 for follow-up after a left [...] is sleeping. 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 Bra size: 44D; Ashkenazi Baptism - no. PMH: Past Medical History: Diagnosis [...] continuous Wilmar Amaya MD 150 mL/hr at 02/09/21813 New Bag at 02/09/21813 ??? [DISCONTINUED] ceFAZolin in sterile water (ANCEF) [...] Gatherings with Friends and Family: ??? Attends Confucianism Services: ??? Active Member of Clubs or [...] Bilateral diagnostic mammogram, bilateral complete ultrasound - ([facility], [place])- extremely dense. Probably benign left breast mass at 6:00, 3 cm from the nipple, irregular shapedcomplex cystic mass measures 1.0 x 0.6 x 0.4 cm, likely a complicated cyst or cluster of microcysts. BIRADS 3 - probably benign findings. 11/08/2020-bilateral diagnostic 3D mammogram, Bilateral ultrasound ([place], [place])-heterogeneously dense. Biopsy marker on the left [...] ectasia, no evidence of malignancy. (Dr. Torrez, [place], [place]). ----- 01/05/2021 - Right breast US [...] data. Nichole Mackey MD Breast Surgical Oncology [facility] cc: Dionte Vega MD documented in this encounter OR Notes * Operative Report - Nichole Mackey MD - 02/09/2021 2:14 PM CDT [facility] OPERATIVE REPORT - [id number] Date of Procedure: 02/09/2021 Name: Araceli Cedeno [...] ANESTHESIA: Local General IMPLANTS: HEMOSTATIC SURGICEL 2X3IN 1953 (QTY - 1) SURGICAL WOUND CLASSIFICATION: Clean-I ANESTHESIA STAFF: Anesthesiologist CATHLEEN Mims STAFF: KAYA Hernandez THELMA L Scrub - WOHADLO, JANINE Perioperative Nurse - MICHAEL AVENDAÑO INDICATIONS: [...] oncoplastic fashion with local tissue rearrangement to construction helper in closing the space, followed by skin closure with interrupted 3-0 Vicryl sutures and a running subcuticular 4-0 Biosyn stitch. Skin glue was applied. Needle and sponge counts were correct x 2. DISPOSITION: Overall the patient tolerated the procedure well and was sent to the recovery room in stable condition. [id number] by NICHOLE MACKEY MD, 02/09/2021 14:13 CDT (Approved) Created in [facility] documented in this encounter Miscellaneous Notes * [...] CASE REPORT Surgical Pathology Report ? Case: [id number] ? Authorizing Provider: ??Nichole Mackey MD ??Collected: ? 02/09/2021 01:38 PM ? Ordering Location: ? [facility] ?Received: ?02/12/2021 06:16 AM ? Operating Room ? Pathologist: ? Jed Contreras MD ? Specimen: ?Breast, right, Upper inner quadrant, short superior, long lateral ? 02/14/2021 9:11 AM [facility] FINAL DIAGNOSIS Breast, right, upper inner quadrant, excisional biopsy with needle localization: - 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 - Margins negative; 4 mm from posterior margin. - Sclerosing adenosis. - Fibrocystic changes and lactational change. - Prior biopsy site ([id number]). 02/14/2021 9:11 AM [facility] S DESCRIPTION The specimen is [...] other palpable lesions or calcifications are identified. Concrete Swimming Pool Installer sections are submitted as follows: A1 and A2-perpendicular sections through superior resection margin, or level 1; A3 and A4-level 3; A5 through A7-level 5; A8 through R73-dmusi 6; A11 through S70-lhqnk 7; A14 and S42-fhbfe 9; A16 and T87-gwyge 11; A18 and D66-alakq 13; A20 and X78-krgibokwtukhz sections through inferior resection margin, or level 15. [facility] 02/14/2021 9:11 AM [facility] MICROSCOPIC DESCRIPTION The slides are labeled [id number] and Araceli Cedeno. The right breast upper [...] the posterior margin. 02/14/2021 9:11 AM CDT [facility] OPERATIVE PROCEDURE BREAST BIOPSY 02/14/2021 9:11 AM CDT [facility] CLINICAL INFORMATION Radial scar of right breast [N64.89] Intraductal papilloma of breast, right [D24.1] N64.89-Radial scar of right breast D24.1-Intraductal papilloma of breast, right 02/14/2021 9:11 AM CDT [facility] COMMENT Special stain and/or immunohistochemical results are interpreted with controls that demonstrate appropriate staining reactions. Note on use of immunocytochemistry reagents: This test was developed and its performance characteristics determined by [facility], Department of Laboratory Medicine. It has [...] part or completely in the following laboratories: [facility], CLIA #[id number] [facility] [place] [address] [id number] [address] [place] [address] [facility], CLIA #[id number] [address] [place] [address] 02/14/2021 9:11 AM CDT [facility] Tissue RIGHT BREAST STRUCTURE / Unknown Collection / Unknown 02/09/2021 1:38 PM CDT 02/12/2021 6:16 AM CDT Nichole Mackey MD PATHOLOGY/CYTOLO GY ORDERABLES [facility] CLIA# [id number] [address] [place] [address] * POC , URINE (02/09/2021 8:05 AM CDT) HCG QUAL URINE Negative Negative 02/09/2021 8:05 AM CDT [facility] CONCRETE SWIMMING POOL INSTALLER NAME JUDIE ALTMAN 02/09/2021 8:05 AM CDT [facility] Urine 02/09/2021 8:05 AM CDT 02/09/2021 8:29 AM CDT Nichole Mackey MD POINT [facility] CARE [facility] [id number] [address] [place] [address] * 2019 NOVEL CORONAVIRUS (COVID-19) PCR DETECTION (02/02/2021 2:09 PM CDT) [facility] COVID-19 PCR NOT DETECTED Not Detected 02/04/20 12:30 AM CDT [facility] PERFORMING LAB [facility] 02/03/2021 12:30 AM CDT [facility] [employer] [facility] Upper Respiratory ENTIRE NASOPHARYNX / Unknown Collection / Unknown 02/02/2021 2:09 PM CDT 02/02/2021 7:18 PM CDT Narrative [facility] - 02/03/2021 12:30 AM CDT This test [...] Mackey MD MICROBIOLOGY - G ENERAL ORDERABLES [facility] [employer] [facility]# [id number] [address] [address] documented in this encounter Visit Diagnoses Diagnosis Preop testing- Primary Preoperative examination, unspecified Radial scar of breast Scar condition and fibrosis of skin Intraductal papilloma of breast, right Mastodynia Duct ectasia, left Mass of upper inner quadrant of right breast Abnormality of right breast on screening mammogram Radial scar of right breast documented in this encounter Administered Medications Inactive [...] Given 02/09/2021 2:53 PM CDT 4 mg documented in this encounter Active and Recently [...] Until Fri02/09/21 at 1854, Routine 0814 ([facility] - Prov ider: Gabi Tsai RN) [...] procedure) documented in this encounter Care Teams Media Relations Associate Relationship Specialty Start Date End Date Dionte Vega MD [address] [place] [address] PCP - General Family Practice 05/25/10 documented as of this encounter
--- OUTSIDE RECORDS SUMMARY | 2024-09-16 07:38 | XMS_ITS | Encounter Summary ---
Author Organization [facility] Address [address] [facility] Attn: Epic Prelude ADT [place] [address] Care Team Providers Care Robotics Systems Engineer Name Role Phone Dionte Vega MD Primary Care Provider [phone] Encounter Details Date Type Department Care Team (Latest Contact Info) Description 02/02/2021 Travel Social History Tobacco Use Types Packs/Day [...] have Coronavirus / COVID-19? No / Unsure 02/02/2021 3:17 PM CDT documented as of this encounter Plan of Treatment Not on file documented as of this encounter Visit Diagnoses Not on filedocumented in this encounter Care Teams Robotics Systems Engineer Relationship Specialty Start Date End Date Dionte Vega MD [address] [place] [id number] PCP - General Family Practice 05/25/10 documented as of this encounter
--- OUTSIDE RECORDS SUMMARY | 2024-09-16 07:39 | XMS_ITS | Encounter Summary ---
Author Organization [facility] Address [address] [place] [address] Care Team Providers Care Coyote Hunter Name Role Phone Dionte Vega MD Primary Care Provider [phone] Encounter Details Date Type Department Care Team (Latest Contact Info) Description 02/02/2021 2:09 PM CDT - 02/02/2021 11:59 PM CDT Hospital Encounter [facility] Pre Procedure Viral Testing [address] [address] Discharge Disposition: Home or Self Care Social [...] PM CDT documented as of this encounter Medications [...] ESCITALOPRAM OXALATE ORAL Take by mouth. OM [id number] ST ORAL Take by mouth. evening primrose [...] Procedure Name Priority Date/Time Associated Diagnosis Comments 2019 NOVEL CORONAVIRUS (COVID-19) PCR DETECTION Routine 02/02/2021 2:09 PM CDT Preop testing documented in this encounter Results * 2019 NOVEL CORONAVIRUS (COVID-19) PCR DETECTION (02/02/2021 2:09 PM CDT) COVID-19 PCR NOT DETECTED Not Detected 02/04/20 12:30 AM CDT [facility] PERFORMING LAB [facility] 02/03/2021 12:30 AM CDT [facility] Upper Respiratory ENTIRE NASOPHARYNX / Unknown Collection / Unknown 02/02/2021 2:09 PM CDT 02/02/2021 7:18 PM CDT Narrative [facility] - 02/03/2021 12:30 AM CDT [...] rule out infection with the 2019-Novel Coronavirus. Erika Martinez MD MICROBIOLOGY - G ENERAL ORDERABLES [facility] CLIA# [id number] [address] [facility] [place] [address] documented in this encounter Visit Diagnoses Diagnosis Preop testing Preoperative examination, unspecified documented in this encounter Care Teams Coyote Hunter Relationship Specialty Start Date End Date Dionte Vega MD [address] [place] [address] PCP - General Family Practice 05/25/10 documented as of this encounter
--- OUTSIDE RECORDS SUMMARY | 2024-09-16 07:40 | XMS_ITS | Encounter Summary ---
Author Organization [facility] Address [address] [place] [address] Care Team Providers Care Web Applications Developer Name Role Phone Dionte Vega MD Primary Care Provider [phone] Reason for Referral * Radiology Services (Routine) - Closed Specialty Diagnoses / Procedures Referred By Contac t Referred To Contact Diagnoses Radial scar of breast Intraductal papilloma of breast, right Procedures MAMMO US GUIDE NEEDLE PLACEMENT MAMMO NEEDLE [place] [address] [address] Referral ID Status Reason Start Date Expiration Date Visits Re quested Visits Authorized [id number] Closed 01/16/2021 02/16/2022 1 1 * Radiology Services (Routine) - Closed Specialty Diagnoses / Procedures Referred By Jared bridges Referred To Contact Diagnoses Radial scar of breast Intraductal papilloma of breast, right Procedures MAMMO POST [place]ED[place] [address] [address] [address] Referral ID Status Reason Start Date Expiration Date Visits Re quested Visits Authorized [id number] Closed 01/16/2021 02/16/2022 1 1 Encounter Details Date Type Department Care Team (Late st Contact Info) Description 01/16/2021 Prep for Surgery [facility] BREAST SURGERY - [place] CLRKSN [address] [facility] [address] [place] [address] [place] [address] [facility] [address] [place] [address] Radial scar of breast (Primary Dx); Intraductal papilloma of breast, right Social History Tobacco Use Types Packs/Day Years Used Date Smoking Tobacco: Former Cigarettes 1 10 1 - 07/02/2011 Smokeless Tobacco: Never Alcohol Use Standard Drinks/Week Comments Yes 0 (1 standard drink = 0.6 oz pur e alcohol) Sex and Gender Information Value Date Recorded Sex Assigned at Not on file Gender Identity Not on file Sexual Orientation Not on file COVID-19 Exposure Response Date Recorded In the last month, have you been in contact with someone who was confirmed or suspected to have Coronavirus / COVID-19? No / Unsure 01/16/2021 9:07 AM CDT documented as of this encounter Plan of Treatment Not on file documented as of this encounter Results * MAMMO US GUIDE NEEDLE PLACEMENT (02/09/2021 10:40 AM CDT) Anatomical Region Laterality Modality Breast N/A Ultrasound 02/09/2021 10:4 0 AM CDT Impressions 02/09/2021 3:16 PM CDT IMPRESSION: Needle localization for a postbiopsy clip in the upper inner right breast. Final pathology pending. DICTATION LOCATION: [facility] Narrative 02/09/2021 3:16 PM CDT ULTRASOUND GUIDED [...] the OR. Erika Martinez MD MAMMO ORDERABLES * MAMMO POST PROCEDURE MAMMO RIGHT (02/09/2021 10:39 AM CDT) Anatomical Region Laterality Modality Breast Right Mammography 02/09/2021 10:4 0 AM CDT Impressions 02/09/2021 3:16 PM CDT IMPRESSION: Needle localization for a postbiopsy clip in the upper inner right breast. Final pathology pending. DICTATION LOCATION: [facility] 02/09/2021 3:16 PM CDT ULTRASOUND GUIDED NEEDLE [...] right breast. Final pathology pending. DICTATION LOCATION: [facility] Erika Martinez MD MAMMO ORDERABLES documented in this encounter Visit Diagnoses Diagnosis Radial scar of breast- Primary Scar condition and fibrosis of skin Intraductal papilloma of breast, right Radial scar of breast Scar condition and fibrosis of skin Intraductal papilloma of breast, right Radial scar of breast Scar condition and fibrosis of skin Intraductal papilloma of breast, right documented in this encounter Care Teams Web Applications Developer Relationship Specialty Start Date End Date Dionte Vega MD [address] [place] [address] PCP - General Family Practice 05/25/10 documented as of this encounter
--- OUTSIDE RECORDS SUMMARY | 2024-09-16 07:40 | XMS_ITS | Encounter Summary ---
Author Organization [facility] Address [address] [facility] Attn: Epic Prelude ADT [place] [address] Care Team Providers Care Well Drill Operator Helper Cable Tool Name Role Phone Dionte Vega MD Primary Care Provider [phone] [phone] Encounter Details Date Type Department Care Team (Latest Contact Info) Description 01/22/2021 Travel Social History Tobacco Use Types Packs/Day [...] have Coronavirus / COVID-19? No / Unsure 01/22/2021 3:44 PM CDT documented as of this encounter Plan of Treatment Not on file documented as of this encounter Visit Diagnoses Not on filedocumented in this encounter Care Teams Well Drill Operator Helper Cable Tool Relationship Specialty Start Date End Date Dionte Vega MD [address] [place] [address] PCP - General Family Practice 05/25/10 documented as of this encounter
--- OUTSIDE RECORDS SUMMARY | 2024-09-16 07:40 | XMS_ITS | Encounter Summary ---
Author Organization [facility] Address [address] [facility] Attn: Epic Prelude ADT [place] [address] Care Team Providers Care Rubber Goods Repairer Name Role Phone Dionte Vega MD Primary Care Provider [phone] Encounter Details Date Type Department Care Team (Latest Contact Info) Description 01/10/2021 Travel Social History Tobacco Use Types Packs/Day [...] have Coronavirus / COVID-19? No / Unsure 01/10/2021 9:14 AM CDT documented as of this encounter Plan of Treatment Not on file documented as of this encounter Visit Diagnoses Not on filedocumented in this encounter Care Teams Rubber Goods Repairer Relationship Specialty Start Date End Date Dionte Vega MD [address] [place] [address] PCP - General Family Practice 05/25/10 documented as of this encounter
--- OUTSIDE RECORDS SUMMARY | 2024-09-16 07:40 | XMS_ITS | Encounter Summary ---
Author Organization [facility] Address [address] [place] [address] Care Team Providers Care Data Processing Auditor Name Role Phone Dionte Vega MD Primary Care Provider [phone] Reason for Visit * Reason Comments Follow Up post biopsy Encounter Details Date Type Department Care Team (Late st Contact Info) Description 01/16/2021 9:30 AM CDT Office Visit [facility] BREAST SURGERY - [place] C[facility] [address] [facility] [address] [place] [address] [place] [address] [place] [address] Radial scar of breast (Primary Dx); [...] Sign Reading Time Taken Comments Blood Pressure 136/88 01/16/2021 9:37 AM CDT Pulse - - Temperature - - Respiratory Rate - - Oxygen Saturation - - Inhaled Oxygen Concentration - - Weight 129.3 kg (285 lb) 01/16/2021 9:37 AM CDT Height 162.6 cm (5' 4 ) 01/16/2021 9:37 AM CDT Body Mass Index 48.92 01/16/2021 9:37 AM CDT documented in this encounter Progress Notes * Erika Martinez MD - 01/16/2021 10:24 AM CDT PATIENT: Araceli Cedeno : 1985 DATE: 01/16/2021 CHIEF COMPLAINT: breast pain and abnormal breast imaging Chief Complaint Patient presents with ??? Follow Up post biopsy HISTORY OF PRESENT ILLNESS: Araceli Cedeno is [...] treated by Dr. Torrez, breast surgeon at [facility] in [place] on 08/09/19 for follow-up after [...] is sleeping. 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 Bra size: 44D; Ashkenazi Sikhism - no. PMH: Past Medical History: Diagnosis Date ??? Anxiety ??? Depression ??? Fibromyalgia ??? Gastric ulcer ??? Headache(784.0) ??? HTN (hypertension) ??? Migraines ??? PCOS (polycystic ovarian syndrome) PSH: Past Surgical History: Procedure Laterality Date ??? HX SECTION ??? HX CHOLECYSTECTOMY ??? HX PELVIC LAPAROSCOPY ALLERGY: Allergies Allergen Reactions ??? Fluconazole Anxiety ??? Promethazine Anxiety MEDS: Current Outpatient Medications Medication Sig Dispense Refill ??? metoprolol succinate (TOPROL XL) 50 mg Extended Release 24 hour tablet 100 mg. ??? triamterene-hydroCHLOROthiazide (DYAZIDE) 37.5-25 mg capsule Take 1 Capsule by mouth daily in the morning. ??? ESCITALOPRAM OXALATE ORAL Take by mouth. ??? OM [id number] ORAL Take by mouth. ??? evening primrose oil (EVENING PRIMROSE ORAL) Take by mouth. ??? albuterol HFA 90 mcg inhaler INL 2 PFS PO Q 4 TO 6 H PRN 0 ??? magnesium oxide 500 mg Capsule Take by mouth. ??? SAVELLA 50 mg tablet Take 50 mg by mouth 2 times daily. 3 ??? Pyridoxine 200 mg Tablet Sustained Release Take 300 mg by mouth. ??? Cholecalciferol, Vitamin D3, 2,000 unit Capsule Take 2,000 Units by mouth. ??? cyanocobalamin (VITAMIN B-12) 1,000 mcg Tablet Take 1,000 mcg by mouth daily. ??? CALCIUM CITRATE ORAL Take 400 mg by mouth. No current facility-administered medications for this visit. FHX: Family History Problem Relation Name Age [...] Types: Cigarettes Quit date: 07/02/2011 Years since quittin.5 ??? Smokeless tobacco: Never Used Vaping Use ??? Vaping Use: unkown if ever used Substance and Sexual Activity ??? Alcohol use: Yes ??? Drug use: No ??? Sexual activity: [...] 5' 4 (1.626 m) and weight is 129.3 kg (285 lb). Her blood pressure is 136/88. Body mass index is 48.92 kg/m??. General: well-developed, well-nourished, no acute distress [...] Bilateral diagnostic mammogram, bilateral complete ultrasound - ([place], [place])- extremely dense. Probably benign left breast mass at 6:00, 3 cm from the nipple, irregular shapedcomplex cystic mass measures 1.0 x 0.6 x 0.4 cm, likely a complicated cyst or cluster of microcysts. BIRADS 3 - probably benign findings. 11/08/2020-bilateral diagnostic 3D mammogram, Bilateral ultrasound ([place], [place])-heterogeneously dense. Biopsy marker on the left [...] ectasia, no evidence of malignancy. (Dr. Torrez, [place], [place]). ----- 01/05/2021 - Right breast US [...] office visit, and reviewing pathology andradiologic data. Erika Martinez MD Breast Surgical Oncology [facility] cc: Dionte Vega MD documented in this encounter Plan of Treatment Not on file documented as of this encounter Visit Diagnoses Diagnosis Radial scar of breast- Primary Scar condition and fibrosis of skin Intraductal papilloma of breast, right documented in this encounter Care Teams Data Processing Auditor Relationship Specialty Start Date End Date Dionte Vega MD [address] [place] [address] PCP - General Family Practice 05/25/10 documented as of this encounter
--- OUTSIDE RECORDS SUMMARY | 2024-09-16 07:40 | XMS_ITS | Encounter Summary ---
Author Organization [facility] Address [address] [facility] Attn: Epic Prelude ADT [place] [address] Care Team Providers Care Horse Wrangler Name Role Phone Dionte Vega MD Primary Care Provider [phone] [phone] Encounter Details Date Type Department Care Team (Latest Contact Info) Description 01/05/2021 Travel Social History Tobacco Use Types Packs/Day [...] have Coronavirus / COVID-19? No / Unsure 01/05/2021 8:43 AM CDT documented as of this encounter Plan of Treatment Not on file documented as of this encounter Visit Diagnoses Not on filedocumented in this encounter Care Teams Horse Wrangler Relationship Specialty Start Date End Date Dionte Vega MD [address] [place] [address] PCP - General Family Practice 05/25/10 documented as of this encounter
--- OUTSIDE RECORDS SUMMARY | 2024-09-16 07:40 | XMS_ITS | Encounter Summary ---
Author Organization [employer] [facility] Address [address] [place] [address] Care Team Providers Care Egg Setter Name Role Phone Dionte Vega MD Primary Care Provider [phone] Reason for Referral * Radiology Services (Routine) - Closed Specialty Diagnoses / Procedures Referred By Jared bridges Referred To Contact Diagnoses Abnormality of right breast on screening mammogram Mass of upper inner quadrant of right breast Morbid obesity with body mass index of 40.0-49.9 Mastodynia Procedures MAMMO POST [place] [address] [address] [address] [facility] Test Scheduling [address] [address] Referral ID Status Reason Start Date Expiration Date V isits Requested Visits Authorized [id number] Closed [facility] CTS 12/12/2020 01/10/2021 1 1 Reason for Visit * Auth/Cert Specialty Diagnoses / Procedures Referred By Jared bridges Referred To Contact Radiology [facility] [address] [place] [address] Referral ID Status Reason Start Date Expiration Date Visits Re quested Visits Authorized [id number] 1 1 Encounter Details Date Type Department Care Team (Latest Contact Info) Description 01/05/2021 8:55 AM CDT - 01/05/2021 11:59 PM CDT Hospital Encounter [facility] Christophe Molina [address] [address] [place] [address] [place] [address] [address] [place] [address] Discharge Disposition: Home or Self Care [...] Sig Dispensed Refills Start Date End Date metoprolol succinate (TOPROL XL) 50 mg Extended Release 24 hour tablet 100 mg. triamterene-hydroCHLOROth iazide (DYAZIDE) 37.5-25 mg capsule Take 1 Capsule by mouth daily in the morning. ESCITALOPRAM OXALATE ORAL Take by mouth. OM [id number] ST ORAL Take by mouth. evening primrose [...] Comments MAMMO POST PROCEDURE MAMMO RIGHT Routine 01/05/2021 11:00 AM CDT Abnormality of right breast on screening mammogram Mass of upper inner quadrant of right breast Morbid obesity with body mass index of 40.0-49.9 Mastodynia documented in this encounter Results * MAMMO POST PROCEDURE MAMMO RIGHT (01/05/2021 11:00 AM CDT) Anatomical Region Laterality Modality Breast Right Mammography 01/05/2021 8:55 AM CDT Impressions 01/05/2021 12:03 PM CDT IMPRESSION: ?? Technically successful ultrasound-guided core biopsy with tissue marker placement. DICTATION LOCATION: ??[facility] Narrative 01/05/2021 12:03 PM CDT EXAM: ULTRASOUND-GUIDED CORE BIOPSY OF THE RIGHT BREAST, TISSUE MARKER CLIP PLACEMENT, UNILATERAL DIGITAL MAMMOGRAM DATE: 01/05/2021 HISTORY: Right breast mass. PROCEDURE AND FINDINGS: ??The risks and potential benefits of the procedure were discussed with the patient and written informed consent was obtained. After sterile preparation of the skin, 1% lidocaine was utilized for local anesthesia. A 14-gauge core biopsy needle was advanced through the lesion of interest using sonographic guidance. A total of 3 tissue cores were obtained throughout the lesion. The lesion appeared to decrease in size or partially resolve after the first pass. A tissue marker clip was then placed at the biopsy site. Hemostasis was achieved. A sterile bandage and an ice pack were applied. A two-view right unilateral digital mammogram was obtained postprocedure and this demonstrates that the tissue marker clip is in the expected position. The patient tolerated the procedure well and there was no evidence of immediate complication. The patient was given verbal as well as written postprocedural instructions prior to the release from the department. The tissue cores were submitted to surgical pathology in formalin for histologic analysis. Procedure Note Zay Ramos MD - 01/05/2021 EXAM: ULTRASOUND-GUIDED CORE BIOPSY OF THE RIGHT BREAST, TISSUE MARKER CLIP PLACEMENT, UNILATERAL DIGITAL MAMMOGRAM DATE: 01/05/2021 HISTORY: Right breast mass. PROCEDURE AND FINDINGS: The risks and potential benefits of the procedure were discussed with the patient and written informed consent was obtained. After sterile preparation of the skin, 1% lidocaine was utilized for local anesthesia. A 14-gauge core biopsy needle was advanced through the lesion of interest using sonographic guidance. A total of 3 tissue cores were obtained throughout the lesion. The lesion appeared to decrease in size or partially resolve after the first pass. A tissue marker clip was then placed at the biopsy site. Hemostasis was achieved. A sterile bandage and an ice pack were applied. A two-view right unilateral digital mammogram was obtained postprocedure and this demonstrates that the tissue marker clip is in the expected position. The patient tolerated the procedure well and there was no evidence of immediate complication. The patient was given verbal as well as written postprocedural instructions prior to the release from the department. The tissue cores were submitted to surgical pathology in formalin for histologic analysis. IMPRESSION: Technically successful ultrasound-guided core biopsy with tissue marker placement. DICTATION LOCATION: [facility] Erika Martinez MD MAMMO ORDERABLES documented in this encounter Visit Diagnoses Diagnosis Abnormality of right breast on screening mammogram Mass of upper inner quadrant of right breast Morbid obesity with body mass index of 40.0-49.9 Mastodynia documented in this encounter Care Teams Egg Setter Relationship Specialty Start Date End Date Dionte Vega MD [address] [place] [id number] PCP - General Family Practice 05/25/10 documented as of this encounter
--- OUTSIDE RECORDS SUMMARY | 2024-09-16 07:40 | XMS_ITS | Encounter Summary ---
Author Organization [facility] Address [address] [facility] Attn: Epic Prelude ADT [place] [address] Care Team Providers Care Child Welfare Manager Name Role Phone Dionte Vega MD Primary Care Provider [phone] Encounter Details Date Type Department Care Team (Latest Contact Info) Description 01/16/2021 Travel Social History Tobacco Use Types Packs/Day [...] on filedocumented in this encounter Care Teams Child Welfare Manager Relationship Specialty Start Date End Date Dionte Vega MD [address] [place] [address] PCP - General Family Practice 05/25/10 documented as of this encounter
--- OUTSIDE RECORDS SUMMARY | 2024-09-16 07:41 | XMS_ITS | Encounter Summary ---
Author Organization [facility] Address [address] [facility] Attn: Epic Prelude ADT [place] [address] Care Team Providers Care Pond Scaler Name Role Phone Dionte Vega MD Primary Care Provider [phone] Encounter Details Date Type Department Care Team (Latest Contact Info) Description 12/12/2020 Travel Social History Tobacco Use Types Packs/Day [...] have Coronavirus / COVID-19? No / Unsure 12/12/2020 9:42 AM CDT documented as of this encounter Plan of Treatment Not on file documented as of this encounter Visit Diagnoses Not on filedocumented in this encounter Care Teams Pond Scaler Relationship Specialty Start Date End Date Dionte Vega MD [address] [place] [address] PCP - General Family Practice 05/25/10 documented as of this encounter
--- OUTSIDE RECORDS SUMMARY | 2024-09-16 07:41 | XMS_ITS | Encounter Summary ---
Author Organization [employer] Address [address] [place] [address] Care Team Providers Care Pediatric Pathologist Name Role Phone Dionte Vega MD Primary Care Provider [phone] Reason for Referral * Radiology Services (Routine) - Closed Specialty Diagnoses / Procedures Referred By Jared bridges Referred To Contact Diagnoses Abnormality of right breast on screening mammogram Mass of upper inner quadrant of right breast Morbid obesity with body mass index of 40.0-49.9 Mastodynia Procedures MAMMO BRE[place] [address] [address] [address] [facility] Test Scheduling [address] [address] Referral ID Status Reason Start Date Expiration Date V isits Requested Visits Authorized [id number] Closed [facility] CTS 12/12/2020 01/10/2021 1 1 Reason for Visit * Auth/Cert Specialty Diagnoses / Procedures Referred By Jared bridges Referred To Contact [facility]iology [facility] [address] [place] [address] Referral ID Status Reason Start Date Expiration Date Visits Re quested Visits Authorized [id number] 1 1 Encounter Details Date Type Department Care Team (Latest Contact Info) Description 01/05/2021 8:55 AM CDT - 01/05/2021 11:59 PM CDT Hospital Encounter [facility] Christophe Molina [address] [address] [place] [address] [place] [address] [address] [place] [address] [...] ESCITALOPRAM OXALATE ORAL Take by mouth. OM [id number] ST ORAL Take by mouth. evening primrose [...] by mouth. documented as of this encounter Miscellaneous Notes * Result Encounter Note - Araceli Esquivel RN - 01/05/2021 10:00 AM CDT Results are considered benign however high risk. The findings and recommendations for appropriate management will be discussed with the patient by the office of Dr. Erika Martinez. Araceli Esquivel SALES REPRESENTATIVE [employer]INTING [employer]PLIES,CBC[employer], Breast Health Nurse Navigator-[facility] documented in this encounter Plan of Treatment Not on file documented as of this encounter Procedures Procedure Name Priority Date/Time Associated Diagnosis Comments MAMMO BREAST US BIOPSY RIGHT Routine 01/05/2021 11:00 AM CDT Abnormality of right breast on screening mammogram Mass of upper inner quadrant of right breast Morbid obesity with body mass index of 40.0-49.9 Mastodynia PATHOLOGY Pathology 01/05/2021 10:01 AM CDT documented in this encounter Results * MAMMO BREAST US BIOPSY RIGHT (01/05/2021 11:00 AM CDT) Anatomical Region Laterality Modality Breast Right Ultrasound Tissue SPECIMEN FROM BREAST / Unknown 01/05/2021 8:55 AM CDT Impressions 01/05/2021 12:03 [...] surgical pathology in formalin for histologic analysis. Erika Martinez MD MAMMO ORDERABLES * PATHOLOGY (01/05/2021 10:01 AM CDT) CASE REPORT Surgical Pathology Report ? Case: [id number] ? Authorizing Provider: ??Zay Ramos MD ? Collected: ? 01/05/2021 10:01 AM ? Ordering Location: ? [facility] ?Received: ?01/08/2021 07:05 AM ? Christophe Molina ? Pathologist: ? Kathryn Avalos MD ? Specimen: ?Breast, right ? 01/09/2021 5:12 PM [facility] FINAL DIAGNOSIS Breast, right, ultrasound-guided core biopsy: - Radial scar/complex sclerosing lesion, associated with mild to moderate usual ductal hyperplasia, apocrine metaplasia and a rare small intraductal papilloma. 01/09/2021 5:12 PM [facility] S DESCRIPTION Received in one container labeled Araceli Do Wilian and right breast mass are 4 yellow-cordova fibrofatty tissue cores, measuring 1.3, 1.5, 1.6 and 1.4 cm in length x 0.3 cm in diameter. All are submitted in cassettes A1 and A2. [facility] 01/09/2021 5:12 PM [facility] MICROSCOPIC DESCRIPTION Received are slides labeled [id number], Araceli Cedeno. The submitted breast, right contains 4 breast cores, 3 of which sample portion of a radial scar/complex sclerosing lesion, measuring up to 6 mm in maximal core dimension and associated with fibrocystic changes, mild to moderate usual ductal hyperplasia, apocrine metaplasia and a small intraductal papilloma. There is no evidence of malignancy. 01/09/2021 5:12 PM [facility] OPERATIVE PROCEDURE US guided core biopsy right breast 01/09/2021 5:12 PM [facility] CLINICAL INFORMATION Right breast 1 oclock collected time 940 , formalin time 945 am, possible complex cyst right breast mass 01/09/2021 5:12 PM [facility] COMMENT Special stain and/or immunohistochemical results are interpreted with controls that demonstrate appropriate staining reactions. Note on use of immunocytochemistry reagents: This test was developed and its performance characteristics determined by [facility], Department of Laboratory Medicine. It has not been cleared or approved by the U.S. Food and Drug Administration. The FDA has determined that such clearance or approval is not necessary. The test is used for clinical purposes. It should not be regarded as investigational or for research. This laboratory is certified to perform high complexity testing. Cases may have been signed out in part or completely in the following laboratories: [facility], CLIA #[id number] [address] [place] [address] [facility], CLIA #[id number] [address] [place] [address] [facility], CLIA #[id number] [address] [facility], [place] [address]. 01/09/2021 5:12 PM CDT [facility] Tissue RIGHT BREAST STRUCTURE / Unknown 01/05/2021 10:01 AM CDT 01/08/2021 7:05 AM CDT Comment:Right breast 1 ocloc k collected time 940 , formalin time 945 am, possible complex cyst Zay Ramos MD PATHOLOGY/CYTOLOGY O RDERABLES [facility] CLIA# [id number] [address] [place] [address] [place] [address] documented in this encounter Visit Diagnoses Diagnosis Abnormality of right breast on screening mammogram Mass of upper inner quadrant of right breast Morbid obesity with body mass index of 40.0-49.9 Mastodynia documented in this encounter Administered Medications Inactive Administered Medications - up to 3 most recent administrations Medication Order MAR Action Action Date Dose Rate Site lidocaine PF 1% (XYLOCAINE MPF) injection 30 mL 30 mL, See Admin Instructions, ONE TIME ONLY, 1 dose, On Fri01/05/21 at 1100, Routine Admin by Another Clinician (Comment) 01/05/2021 9:10 AM CDT 13 mL Operative Site sodium bicarbonate (NEUT) 4 % injection 200 mg 200 mg (5 mL), See Admin Instructions, ONE TIME ONLY, 1 dose, On Fri01/05/21 at 1015, Routine Admin by Another Clinician (Comment) 01/05/2021 9:10 AM CDT 2 mg Operative Site documented in this encounter Care Teams Pediatric Pathologist Relationship Specialty Start Date End Date Dionte Vega MD [address] [place] [address] PCP - General Family Practice 05/25/10 documented as of this encounter
--- OUTSIDE RECORDS SUMMARY | 2024-09-16 07:41 | XMS_ITS | Encounter Summary ---
Author Organization [facility] Address [address] [facility] Attn: Epic Prelude ADT [place] [address] Care Team Providers Care Burnisher And Bumper Name Role Phone Dionte Vega MD Primary Care Provider [phone] Encounter Details Date Type Department Care Team (Latest Contact Info) Description 11/21/2020 Travel Social History Tobacco Use Types Packs/Day [...] have Coronavirus / COVID-19? 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
--- OUTSIDE RECORDS SUMMARY | 2024-09-16 07:41 | XMS_ITS | Encounter Summary ---
Author Organization [facility] Address [address] [place] [address] Care Team Providers Care Industrial Technologist Name Role Phone Dionte Vega MD Primary Care Provider [phone] Encounter Details Date Type Department Care Team (Late st Contact Info) Description 11/10/2020 Orders Only [facility] BREAST [facility]GERY [facility] [address] [facility] [address] [place] [address] Provider, Abstract NO ADDRESS ON FILE Social History Tobacco Use Types Packs/Day Years [...] or suspected to have Coronavirus / COVID-19? Unable to assess 10/23/2020 10:18 AM TECHNICAL SOLUTIONS ENGINEER documented as of this encounter Plan of Treatment Not on file documented as of this encounter Procedures Procedure Name Priority Date/Time Associated Diagnosis Comments MAMMO DIAG BILAT 3D AN W O R WO CAD Routine 11/08/2020 documented in this encounter Results * (ABNORMAL) MAMMO DIAG BILAT 3D AN W OR WO CAD (11/08/2020) Anatomical Region Laterality Modality Breast Bilateral Other Abstract Provider MAMMO ORDERABLES documented in this encounter Visit Diagnoses Not on filedocumented in this encounter Care Teams Industrial Technologist Relationship Specialty Start Date End Date Dionte Vega MD [address] [place] [address] PCP - General Family Practice 05/25/10 documented as of this encounter
--- OUTSIDE RECORDS SUMMARY | 2024-09-16 07:41 | XMS_ITS | Encounter Summary ---
Author Organization [facility] Address [address] [place] [address] Care Team Providers Care Cnc Mill And Lathe Operator Name Role Phone Dionte Vega MD Primary Care Provider [phone] Encounter Details Date Type Department Care Team (Late st Contact Info) Description 12/12/2020 Chart Note [facility] [address] [address] [place] [address] Araceli Esquivel RN Social History Tobacco Use Types Packs/Day Years [...] AM CDT documented as of this encounter Progress Notes * Araceli Esquivel RN - 12/12/2020 11:23 AM CDT Patient scheduled for a right breast US core biopsy. Procedural education provided. Discussed potential risk factors, including bleeding and infection. Request that patient avoid ASA/Ibuprofen products for 5 days prior to procedure. Patient's health history, medications and allergies reviewed. The time, date and location of procedure provided in writing. Patient is encouraged to call RN Navigation office with any additional questions or concerns; contact information provided. Araceli Esquivel HOME VISITOR HOME BASE HEAD START CBCN Breast Health Nurse Navigator-[facility] documented in this encounter Plan of Treatment Not on file documented as of this encounter Visit Diagnoses Not on filedocumented in this encounter Care Teams Cnc Mill And Lathe Operator Relationship Specialty Start Date End Date Dionte Vega MD [address] [place] [address] PCP - General Family Practice 05/25/10 documented as of this encounter
--- OUTSIDE RECORDS SUMMARY | 2024-09-16 07:41 | XMS_ITS | Encounter Summary ---
Author Organization [facility] Address [address] [place] [address] Care Team Providers Care Chairman Emeritus Name Role Phone Dionte Vega MD Primary Care Provider [phone] [phone] Reason for Referral * Radiology Services (Routine) - Closed Specialty Diagnoses / Procedures [facility] Referred To Contact Diagnoses Abnormality of right breast on screening mammogram Mass of upper inner quadrant of right breast Morbid obesity with body mass index of 40.0-49.9 Mastodynia Procedures MAMMO [place] [address] [place] [address] [facility] Test Scheduling [address] [address] Referral ID Status Reason Start Date Expiration Date V isits Requested Visits Authorized [id number] Closed [facility] CTS 12/12/2020 01/10/2021 1 1 Reason for Visit * Reason Comments Breast Mass right Encounter Details Date Type Department Care Team (Late st Contact Info) Description 12/12/2020 9:45 AM CDT Office Visit [facility] BREAST SURGERY - [place] CLRKSN [address] [place] [address] [place] [address] [address] [place] [id number] Mass of upper inner quadrant of right breast (Primary Dx); Abnormality of right breast on screening mammogram; Morbid obesity with body mass index of 40.0-49.9; Mastodynia Social History Tobacco Use Types Packs/Day Years [...] Sign Reading Time Taken Comments Blood Pressure 132/84 12/12/2020 10:13 AM CDT Pulse - - Temperature - - Respiratory Rate - - Oxygen Saturation - - Inhaled Oxygen Concentration - - Weight 129.3 kg (285 lb) 12/12/2020 10:01 AM CDT Height 162.6 cm (5' 4 ) 12/12/2020 10:01 AM CDT Body Mass Index 48.92 12/12/2020 10:01 AM CDT documented in this encounter Progress Notes * Erika Martinez MD - 12/12/2020 10:17 AM CDT PATIENT: Araceli Cedeno : 1985 DATE: 12/12/2020 CHIEF COMPLAINT: breast pain and abnormal breast imaging Chief Complaint Patient presents with ??? Breast Mass right HISTORY OF PRESENT ILLNESS: Araceli Cedeno is a 35 y.o. premenopausal female referred by Dr. Vega for evaluation and recommendations regarding right breast pain and an abnormal right breast imaging. She was last seen in July 2019 for acute onset of left breast pain. She had been doing well,until she recently develop worsening breast pain diffuse, denies any breast trauma, no nipple discharge, and mostly on the right breast. She then sought evaluation and obtained breast imaging that revealed a suspicious new finding in the upper inner quadrant of her right breast and a biopsy was recommended. She presents alone to discuss surgical options. [...] treated by Dr. Torrez, breast surgeon at [facility] in [place] on 08/09/19 for follow-up after a left [...] is sleeping. 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 Bra size: 44D; Ashkenazi Restorationism - no. PMH: Past Medical History: Diagnosis Date ??? Anxiety ??? Depression ??? Fibromyalgia ??? Gastric ulcer ??? Headache(784.0) ??? HTN (hypertension) ??? Migraines ??? PCOS (polycystic ovarian syndrome) PSH: Past Surgical History: Procedure Laterality Date ??? HX SECTION ??? HX CHOLECYSTECTOMY ??? HX PELVIC LAPAROSCOPY ALLERGY: Allergies Allergen Reactions ??? Phenergan [Promethazine] Anxiety MEDS: Current Outpatient Medications Medication Sig Dispense Refill ??? triamterene-hydroCHLOROthiazide (DYAZIDE) 37.5-25 mg capsule Take 1 Capsule by mouth daily in the morning. ??? ESCITALOPRAM OXALATE ORAL Take by mouth. ??? OM [id number] ORAL Take by mouth. ??? evening primrose oil (EVENING PRIMROSE ORAL) Take by mouth. ??? metoprolol succinate (TOPROL XL) 50 mg Extended Release 24 hour tablet 100 mg. ??? albuterol HFA 90 mcg inhaler INL [...] file Occupational History ??? Not on file Social Needs ??? Financial resource strain: Not on file ??? Food insecurity Worry: Not on file Inability: Not on file ??? Transportation needs Medical: Not on file Non-medical: Not on file Tobacco Use ??? Smoking status: Former Smoker Packs/day: 1.00 Years: 10.00 Pack years: 10.00 Types: Cigarettes Quit date: 07/02/2011 Years since quittin.4 ??? Smokeless tobacco: Never Used Substance and Sexual Activity ??? Alcohol use: Yes Frequency: Monthly or less ??? Drug use: No ??? Sexual activity: Not Currently control/protection: None Lifestyle ??? Physical activity Days per week: Not on file Minutes per session: Not on file ??? Stress: Not on file Relationships ??? Social connections Talks on phone: Not on file Gets together: Not on file Attends christianity service: Not on file Active member of club or organization: Not on file Attends meetings of clubs or organizations: Not on file Relationship status: Not on file ??? Intimate partner violence Fear of current or ex partner: Not on file Emotionally abused: Not on file Physically abused: Not on file Forced sexual activity: Not on file Other Topics Concern ??? Service Not Asked [...] Social History Narrative ??? Not on file ROS: Constitutional: Negative for fever, weight loss [...] kg (285 lb). Her blood pressure is 132/84. Body mass index is 48.92 kg/m??. General: [...] nipple discharge, or axillary lymphadenopathy. Right breast: No dominant mass, skin changes, nipple discharge, or axillary lymphadenopathy. Abdomen: Soft, non-tender. No masses. Extremities: no edema Neurologic: sensory and motor grossly intact. Alert and oriented x 3. IMAGING: I personally reviewed imaging dated: 04/15/2019 - Bilateral diagnostic mammogram, bilateral complete ultrasound - ([place], [place])- extremely dense. Probably benign left breast mass at 6:00, 3 cm from the nipple, irregular shapedcomplex cystic mass measures 1.0 x 0.6 x 0.4 cm, likely a complicated cyst or cluster of microcysts. BIRADS 3 - probably benign findings. PATHOLOGY: 08/04/2019 - Left breast ultrasound guided core biopsy at 8:00, 8 cm FN - lobular secretory changes with duct ectasia, no evidence of malignancy. (Dr. Torrez, [place], [place]). ----- 11/08/2020-bilateral diagnostic 3D mammogram, Bilateral ultrasound ([place], [place])-heterogeneously dense. Biopsy marker on the left with prior benign biopsy. Breast upper inner quadrant posterior to middle depth there is a new suspicious 6 mm mass at 1:00 10 cm from the nipple . BI-RADS 4-suspicious. ASSESSMENT AND PLAN: 35 y.o. premenopausal female presenting with breast pain and an abnormal right mammogram, UIQ at 1:00, 10 cm FN. She is s/p left breast core biopsy with duct ectasia. I have personally examined her and have reviewed her recent breast imaging Recommend a right breast ultrasound guided core biopsy for histologic evaluation. I will call with pathology results, which typically take 2-3 business days and will discuss the next step as necessary. Benign breast pain is a common condition affecting 50% of women at some point in their lifetime. Itis usually associated with fibrocystic changes to the breast, bra fit, and hormonal fluctuations. Irecommend she have a bra fitting, wear a supportive bra, sleep in a sports bra, heat/ice to the area, 64 oz of water daily, Vitamin E supplements, and Evening Elberon Oil. I emphasized that it can take 6-8 weeks after making any of the above changes to notice a difference clinically. I answered her questions to her satisfaction. She was instructed to call our clinic with any acute breast changes, concerns, or questions. 30 minutes were spent with the patient, preparing for the office visit, and reviewing pathology andradiologic data. Erika Martinez MD Breast Surgical Oncology [facility] cc: Dionte Vega MD documented in this encounter Plan of Treatment Not on file documented as of this encounter Results * MAMMO BREAST US [...] histologic analysis. Erika Martinez MD MAMMO ORDERABLES documented in this encounter Visit Diagnoses Diagnosis Mass of upper inner quadrant of right breast- Primary Abnormality of right breast on screening mammogram Morbid obesity with body mass index of 40.0-49.9 Mastodynia Abnormality of right breast on screening mammogram Mass of upper inner quadrant of right breast Morbid obesity with body mass index of 40.0-49.9 Mastodynia documented in this encounter Care Teams Chairman Emeritus Relationship Specialty Start Date End Date Dionte Vega MD [address] [place] [address] PCP - General Family Practice 05/25/10 documented as of this encounter
--- OUTSIDE RECORDS SUMMARY | 2024-09-16 07:41 | XMS_ITS | Encounter Summary ---
Author Organization [facility] Address [address] [place] [address] Care Team Providers Care Carpenter Repair Name Role Phone Dionte Vega MD Primary Care Provider [phone] Encounter Details Date Type Department Care Team (Latest Contact Info) Description 11/08/2020 11:20 AM POTATO PANCAKE FRIER - 11/08/2020 11:59 PM POTATO PANCAKE FRIER Hospital Encounter [facility] Christophe Molina [address] [place] [address] [facility], External Provider [address] [place] [address] Discharge Disposition: Home or Self Care Social [...] COVID-19? Unable to assess 10/23/2020 10:18 AM POTATO PANCAKE FRIER documented as of this encounter Medications at Time of Discharge Medication Sig Dispensed Refills Start Date End Date albuterol HFA 90 mcg inhaler INL 2 [...] Name Priority Date/Time Associated Diagnosis Comments MAMMO PRIOR STUDY Routine 11/08/2020 11: 20 AM POTATO PANCAKE FRIER Follow up documented in this encounter Results * MAMMO PRIOR STUDY (11/08/2020 11:20 AM POTATO PANCAKE FRIER) Narrative 12/12/2020 11:17 AM CDT This exam was auto finalized to allow images to be scanned to PACS. External Provider [facility] DIAGNOSTIC IMAGI NG ORDERABLES documented in this encounter Visit Diagnoses Diagnosis Follow up documented in this encounter Care Teams Carpenter Repair Relationship Specialty Start Date End Date Dionte Vega MD [address] [place] [address] PCP - General Family Practice 05/25/10 documented as of this encounter
--- OUTSIDE RECORDS SUMMARY | 2024-09-16 07:41 | XMS_ITS | Encounter Summary ---
Author Organization [facility] Address [address] [facility] Attn: Epic Prelude ADT [address] [address] Care Team Providers Care Hypnotherapist Name Role Phone Dionte Vega MD Primary Care Provider [phone] Encounter Details Date Type Department Care Team (Latest Contact Info) Description 12/11/2020 Travel Social History Tobacco Use Types Packs/Day [...] have Coronavirus / COVID-19? No / Unsure 12/11/2020 11:43 AM CDT documented as of this encounter Plan of Treatment Not on file documented as of this encounter Visit Diagnoses Not on filedocumented in this encounter Care Teams Hypnotherapist Relationship Specialty Start Date End Date Dionte Vega MD [address] [place] [address] PCP - General Family Practice 05/25/10 documented as of this encounter
--- OUTSIDE RECORDS SUMMARY | 2024-09-16 07:41 | XMS_ITS | Encounter Summary ---
Author Organization [facility] Address [address] [facility] Attn: Epic Prelude ADT [address] [address] Care Team Providers Care Podiatry Teacher Name Role Phone Dionte Vega MD Primary Care Provider [phone] Encounter Details Date Type Department Care Team (Latest Contact Info) Description 11/15/2020 Travel Social History Tobacco Use Types Packs/Day [...] have Coronavirus / COVID-19? 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
--- OUTSIDE RECORDS SUMMARY | 2024-09-16 07:41 | XMS_ITS | Encounter Summary ---
Author Organization [facility] Address [address] [place] [address] Care Team Providers Care Coordinator Of Genetic Services Name Role Phone Dionte Vega MD Primary Care Provider [phone] Encounter Details Date Type Department Care Team (Late st Contact Info) Description 12/12/2020 Orders Only [facility] BREAST SURGERY - [place] [facility] [address] [facility] [address] [place] [address] Benedict Rick MD [address] [place] [address] Social History Tobacco Use Types Packs/Day [...] AN W O R WO CAD Routine 04/15/2019 documented in this encounter Results * (ABNORMAL) MAMMO DIAG BILAT 3D AN W OR WO CAD (04/15/2019) Anatomical Region Laterality Modality Breast Bilateral Other Benedict Rick MD MAMMO ORDERABLES documented in this encounter Visit Diagnoses Not on filedocumented in this encounter Care Teams Coordinator Of Genetic Services Relationship Specialty Start Date End Date Dionte Vega MD [address] [place] [address] PCP - General Family Practice 05/25/10 documented as of this encounter
--- OUTSIDE RECORDS SUMMARY | 2024-09-16 07:42 | XMS_ITS | Encounter Summary ---
Author Organization [facility] Address [address] [facility] Attn: Epic Prelude ADT [address] [address] Care Team Providers Care Analytical Research Chemist Name Role Phone Dionte Vega MD Primary Care Provider [phone] Encounter Details Date Type Department Care Team (Latest Contact Info) Description 10/23/2020 Travel Social History Tobacco Use Types Packs/Day [...] COVID-19? 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
--- OUTSIDE RECORDS SUMMARY | 2024-09-16 07:42 | XMS_ITS | Encounter Summary ---
Author Organization [facility] Address [address] [place] [address] Care Team Providers Care Vice President Lending Name Role Phone Dionte Vega MD Primary Care Provider [phone] Encounter Details Date Type Department Care Team (Latest Contact Info) Description 09/20/2020 11:25 AM RN PSYCH - 09/20/2020 11:59 PM [facility] Hospital Encounter [facility] Christophe Mol[address] [place] [address] [facility], External Provider [address] [place] [address] Discharge Disposition: Home or Self Care Social [...] on file documented as of this encounter Medications at [...] Associated Diagnosis Comments MAMMO PRIOR STUDY Routine 09/20/2020 11: 25 AM RN PSYCH Follow up documented in this encounter Results * MAMMO PRIOR STUDY (09/20/2020 11:25 AM RN PSYCH) Narrative 12/12/2020 11:20 AM CDT This exam was auto finalized to allow images to be scanned to PACS. External Provider [facility] DIAGNOSTIC IMAGI NG ORDERABLES documented in this encounter Visit Diagnoses Diagnosis Follow up documented in this encounter Care Teams Vice President Lending Relationship Specialty Start Date End Date Dionte Vega MD [address] [place] [address] PCP - General Family Practice 05/25/10 documented as of this encounter
--- OUTSIDE RECORDS SUMMARY | 2024-09-16 07:42 | XMS_ITS | Encounter Summary ---
Author Organization [facility] Address [address] [place] [address] Care Team Providers Care [address] Design Draftsperson Name Role Phone Dionte Vega MD Primary Care Provider [phone] Encounter Details Date Type Department Care Team (Latest Contact Info) Description 09/20/2020 11:20 AM QUARRY SUPERVISOR - 09/20/2020 11:59 PM [facility] Hospital Encounter [facility] Christophe Mol[address] [place] [address] [facility], External Provider [address] [place] [address] Discharge Disposition: Home or Self Care Social [...] Comments MAMMO PRIOR STUDY Routine 09/20/2020 11: 20 AM QUARRY SUPERVISOR Follow up documented in this encounter Results * MAMMO PRIOR STUDY (09/20/2020 11:20 AM QUARRY SUPERVISOR) Narrative 12/12/2020 11:19 AM CDT This exam was auto finalized to allow images to be scanned to PACS. External Provider [facility] DIAGNOSTIC IMAGI NG ORDERABLES documented in this encounter Visit Diagnoses Diagnosis Follow up documented in this encounter Care Teams Road Design Draftsperson Relationship Specialty Start Date End Date Dionte Vega MD [address] [place] [address] PCP - General Family Practice 05/25/10 documented as of this encounter
--- OUTSIDE RECORDS SUMMARY | 2024-09-16 07:42 | XMS_ITS | Encounter Summary ---
Author Organization [facility] [employer] [facility] Address [address] [place] [address] Care Team Providers Care Callisthenics Instructor Name Role Phone Dionte Vega MD Primary Care Provider [phone] Encounter Details Date Type Department Care Team (Late st Contact Info) Description 08/09/[address] [facility] Breast Surgery [place] [address] [place] [address] Provider, Abstract NO ADDRESS ON FILE Social [...] Name Priority Date/Time Associated Diagnosis Comments PATHOLOGY Routine 08/03/2019 documented in this encounter Results * PATHOLOGY (08/03/2019) Tissue Abstract Provider PATHOLOGY/CYTOLOGY O RDERABLES documented in this encounter Visit Diagnoses Not on filedocumented in this encounter Care Teams Callisthenics Instructor Relationship Specialty Start Date End Date Dionte Vega MD [address] [place] [address] PCP - General Family Practice 05/25/10 documented as of this encounter
--- OUTSIDE RECORDS SUMMARY | 2024-09-16 07:42 | XMS_ITS | Encounter Summary ---
Author Organization [facility] Address [address] [place] [address] Care Team Providers Care Production Wood Craftsman Name Role Phone Dionte Vega MD Primary Care Provider [phone] Encounter Details Date Type Department Care Team (Latest Contact Info) Description 08/31/2020 11:20 AM HEAD GIRLS GOLF COACH - 08/31/2020 11:59 PM [facility] Hospital Encounter [facility] Christophe [address] [place] [address] [facility], External Provider [address] [place] [address] Discharge Disposition: Home or Self Care Social [...] Associated Diagnosis Comments MAMMO PRIOR STUDY Routine 08/31/2020 11: 20 AM HEAD GIRLS GOLF COACH Follow up documented in this encounter Results * MAMMO PRIOR STUDY (08/31/2020 11:20 AM HEAD GIRLS GOLF COACH) Narrative 12/12/2020 11:21 AM CDT This exam was auto finalized to allow images to be scanned to PACS. External Provider [facility] DIAGNOSTIC IMAGI NG ORDERABLES documented in this encounter Visit Diagnoses Diagnosis Follow up documented in this encounter Care Teams Production Wood Craftsman Relationship Specialty Start Date End Date Dionte Vega MD [address] [place] [address] PCP - General Family Practice 05/25/10 documented as of this encounter
--- OUTSIDE RECORDS SUMMARY | 2024-09-16 07:43 | XMS_ITS | Encounter Summary ---
Author Organization [facility] [employer] [facility] Address [address] [place] [address] Care Team Providers Care Packing Line Operator Name Role Phone Dionte Vega MD Primary Care Provider [phone] Reason for Visit * Reason Comments Follow Up Bx FU Encounter Details Date Type Department Care Team (Late st Contact Info) Description 08/09/2019 9:30 AM BOILER WASHER Office Visit [facility] Breast Surgery [facility] [address] [address] Kelly Torrez DO NO ADDRESS ON FILE Duct ectasia, left (Primary Dx) Social History Tobacco Use Types [...] Sign Reading Time Taken Comments Blood Pressure 126/86 08/09/2019 9:16 AM BOILER WASHER Pulse 88 08/09/2019 9:16 AM BOILER WASHER Temperature 37 ??C (98.6 ??F) 08/09/2019 9:16 AM BOILER WASHER Respiratory Rate - - Oxygen Saturation 97% 08/09/2019 9:16 AM BOILER WASHER Inhaled Oxygen Concentration - - Weight 117.4 kg (258 lb 14.4 oz) 08/09/2019 9:16 AM BOILER WASHER Height 162.6 cm (5' 4 ) 08/09/2019 9:16 AM BOILER WASHER Body Mass Index 44.44 08/09/2019 9:16 AM BOILER WASHER documented in this encounter Progress Notes * Kelly Torrez, DO - 08/09/2019 9:30 AM CST PATIENT: Araceli Cedeno : 1985 DATE: 08/09/2019 CHIEF COMPLAINT: Chief Complaint Patient presents with ??? Follow Up Bx FU Subjective: The patient is here for follow-up after her left breast biopsy. She has had no pain, nofevers since the procedure and generally did well. FDLMP: 07/11/2019 07/02/2019: Araceli Cedeno is a 34 y.o. female referred by Dr Rick for evaluation and recommendations regarding left breast lump x 1 year, no change in size at inner breast, walnut sized. Stopped breast feeding late March, but while breast feeding and had bilateral breast pain, which started late February. Had Bilat US and was started on Diflucan beginning of March. On 04/16, was started on dicloxicillin, no redness. Was on antibiotic x 10 days, which helped with some of the pain. Also stopped breast feeding, which seems to have helped with pain. No longer taking any antibiotics, and pain slightlybetter, intermittent, sometimes sharp. Patient checks breasts regularly: yes; Annual mammograms: none Trauma to breasts: none PROCEDURE(s): 08/03/2019: Left breast 8:00 8 cm from the nipple ultrasound-guided core biopsy (coil-shaped) Pathology: Lobular secretory changes with duct ectasia. Stromal fibrosis. No evidence of malignancy FHx: BC: Paternal GM dx 40s, lung and brain (?metastatic) passed 60yo; ovarian ca: none; maternal GF prostate ca dx 75; paternal GF colon ca unk age Menarche 9, FDLMP 06/15/2019, premenopausal , FFTB 29, breast fed yes and total 32 months; contraceptives: yes and DepoProvera x 4 yrs,OCPs x 4 yrs, nothing x 10 yrs; HRT n/a Bra size: 42D Ashkenazi heritage: no Smoker: quit 2010, smoked 1ppd x 10 yrs History: HTN, gastric ulcers, fibromyalgia (on Savella x 8yrs), anxiety, depression, polycystic ovarian syndrome, sleep apnea (uses CPAP nightly), PVCs PMH: Past Medical History: Diagnosis Date ??? Anxiety ??? Depression ??? Fibromyalgia ??? Gastric ulcer ??? Headache(784.0) ??? HTN (hypertension) ??? Migraines ??? PCOS (polycystic ovarian syndrome) PSH: Past Surgical History: Procedure Laterality Date ??? HX SECTION ??? HX CHOLECYSTECTOMY ??? HX PELVIC LAPAROSCOPY ALLERGY: Allergies Allergen Reactions ??? Phenergan [Promethazine] Anxiety MEDS: Current Outpatient Medications Medication Sig Dispense Refill ??? sertraline (ZOLOFT) 50 mg tablet TK 1 T PO QD 3 ??? multivitamin (CHEWABLE-KEILY) Tablet, Chewable Take by mouth. ??? cyclobenzaprine (FLEXERIL) 10 mg tablet TK 1 T PO TID 1 ??? albuterol HFA 90 mcg inhaler INL 2 PFS PO Q 4 TO 6 H PRN 0 ??? labetalol (NORMODYNE) 200 mg tablet ??? magnesium oxide 500 mg Capsule Take [...] CITRATE ORAL Take 400 mg by mouth. ??? ALPRAZolam (XANAX) 0.25 mg tablet ??? loratadine (CLARITIN ORAL) Take by mouth. No current facility-administered medications for this visit. FHX: No family history on file. SOC: Social History Socioeconomic History ??? Marital status: Spouse name: Not on file ??? Number of children: Not on file ??? Years of education: Not on file ??? Highest education level: Not on file Occupational History ??? Not on file Social Needs ??? Financial resource strain: Not on file ??? Food insecurity: Worry: Not on file Inability: Not on file ??? Transportation needs: Medical: Not on file Non-medical: Not on file Tobacco Use ??? Smoking status: Former Smoker Packs/day: 1.00 Years: 10.00 Pack years: 10.00 Types: Cigarettes Last attempt to quit: 07/02/2011 Years since quittin.1 ??? Smokeless tobacco: Never Used Substance and Sexual Activity ??? Alcohol use: Yes Frequency: Monthly or less ??? Drug use: No ??? Sexual activity: Not Currently control/protection: None Lifestyle ??? Physical activity: Days per week: Not on file Minutes per session: Not on file ??? Stress: Not on file Relationships ??? Social connections: Talks on phone: Not on file Gets together: Not on file Attends rastafari service: Not on file Active member of club or organization: Not on file Attends meetings of clubs or organizations: Not on file Relationship status: Not on file ??? Intimate partner violence: Fear of current or ex partner: Not [...] Constitutional: Negative for fever, weight loss and malaise/fatigue. Respiratory: Negative for cough. Cardiovascular: Negative for chest pain and leg swelling. Gastrointestinal: Negative for abdominal pain. Genitourinary: Negative for dysuria. Musculoskeletal: Negative for myalgias and joint pain. Skin: Negative for rash. Neurological: Negative for dizziness and headaches. Psychiatric/Behavioral: Negative for depression Female: OB History 2 Para 2 Term 2 AB Living SAB TAB Ectopic Multiple Live Births The remainder of the review of systems including cardiovascular, pulmonary, GI/, neurologic, and endocrine are negative except as noted above. Immunizations: non-contributory PHYSICAL EXAM: BP 126/86 (BP Location: Right arm, Patient Position (BP): Sitting, BP Cuff Size: Adult) Pulse 88 Temp 98.6 ??F (37 ??C) (Oral) Ht 5' 4 (1.626 m) Wt 117.4 kg (258 lb 14.4 oz) LMP 07/11/2019(Approximate) SpO2 97% ? No BMI 44.44 kg/m?? Breasts: The patient was examined in the seated and supine positions, with muscles at rest, and with pectoral flexion. no cervical, supraclavicular, axillary lymphadenopathy. Breast symmetry: Right breast larger than left Other findings: The left lower inner breast, the biopsy is healing very nicely with no signs of infection, no erythema, no edema and no exudate. In fact, the previously palpable density is much less obvious on exam. General: well-developed, well-nourished HEENT: normocephalic/atraumatic. Extra-occular movements are intact. Sclera anicteric. Neck is supple without masses. No thyroid nodules. No lymphadenopathy. Cardiovascular: regular rate, rhythm. S1, S2 without murmur. No palpable thrill. 2+ radial pulses. Lungs - clear to auscultation bilaterally. No wheezes. Abdomen: Soft, non-tender. No masses. No palpable liver edge. Extremities: no edema Neurologic: sensory and motor grossly intact. Alert and oriented x 3. Most recent imaging: Bilateral ultrasound was done at [facility] on 04/15[facility]2019. The finding identified is in the left breast at 6:00 3 cm from the nipple showing an irregularly shaped complex cystic mass measuring 10 x 6 x 4 mm Future imaging: Bilateral screening mammogram will be due at age 40, per ACR guidelines. ASSESSMENT AND PLAN: Encounter Diagnosis Name Primary? Duct ectasia, left Yes Pathology and pathophysiology of lobular secretory changes and duct ectasia were discussed with thepatient. She understands that these are completely benign findings that are very common with recentbreast-feeding. There is nothing further to do, and likely the biopsy was not only diagnostic but also curative. In fact, the lesion is not as obvious on today's exam. Patient was reassured. She doesnot need any further follow-ups at this time. She can resume clinical breast exams with her construction and maintenance inspector. She will not need a mammogram until she is 39 years of age, per ACR guidelines. TOBACCO COUNSELING She is not a tobacco user. Patient's questions were solicited and fully answered. Patient stated understanding. Kelly Torrez DO, FACOS This note was transcribed using Speech Recognition software. As a result, there may be grammatical and spelling errors that are unintended. If there are any questions or major inaccuracies, please contact me. ER WASHER documented in this encounter Plan of Treatment Not on file documented as of this encounter Visit Diagnoses Diagnosis Duct ectasia, left- Primary documented in this encounter Care Teams Packing Line Operator Relationship Specialty Start Date End Date Dionte Vega MD [address] [place] [address] PCP - General Family Practice 05/25/10 documented as of this encounter
--- OUTSIDE RECORDS SUMMARY | 2024-09-16 07:43 | XMS_ITS | Encounter Summary ---
Author Organization [facility] [employer] [facility] Address [address] [place] [address] Care Team Providers Care Double End Tenon Operator Name Role Phone Dionte Vega MD Primary Care Provider [phone] Encounter Details Date Type Department Care Team (Late st Contact Info) Description 07/05/2019 Orders Only [facility] Breast Surgery [facility] [address] [place] [phone] Provider, Abstract NO ADDRESS ON FILE [...] Procedure Name Priority Date/Time Associated Diagnosis Comments MAMMOGRAM REPORT Routine 04/15/2019 documented in this encounter Results * MAMMOGRAM REPORT (04/15/2019) Anatomical Region Laterality Modality Other Abstract Provider MAMMO ORDERABLES documented in this encounter Visit Diagnoses Not on filedocumented in this encounter Care Teams Double End Tenon Operator Relationship Specialty Start Date End Date Dionte Vega MD [address] [place] [phone] PCP - General Family Practice 05/25/10 documented as of this encounter
--- OUTSIDE RECORDS SUMMARY | 2024-09-16 07:43 | XMS_ITS | Encounter Summary ---
Author Organization [facility] Address [address] [place] [address] Care Team Providers Care Shop Estimator Name Role Phone Dionte Vega MD Primary Care Provider [phone] Encounter Details Date Type Department Care Team (Latest Contact Info) Description 12/16/2018 11:20 AM CDT - 12/16/2018 11:59 PM CDT Hospital Encounter [facility] Christ[address] Mol[address] [place] [address] [facility], External Provider [address] [place] [address] Discharge Disposition: Home or Self Care Social History Tobacco Use Types Packs/Day Years Used Date Smoking Tobacco: Never Alcohol Use Standard Drinks/Week Comments [...] Associated Diagnosis Comments MAMMO PRIOR STUDY Routine 12/16/2018 11: 20 AM CDT Follow up documented in this encounter Results * MAMMO PRIOR STUDY (12/16/2018 11:20 AM CDT) Narrative 12/12/2020 11:17 AM CDT This exam was auto finalized to allow images to be scanned to PACS. External Provider [facility] DIAGNOSTIC IMAGI NG ORDERABLES documented in this encounter Visit Diagnoses Diagnosis Follow up documented in this encounter Care Teams Shop Estimator Relationship Specialty Start Date End Date Dionte Vega MD [address] [place] [address] PCP - General Family Practice 05/25/10 documented as of this encounter
--- OUTSIDE RECORDS SUMMARY | 2024-09-16 07:43 | XMS_ITS | Encounter Summary ---
Author Organization [facility] [employer] [facility] Address [address] [place] [address] Care Team Providers Care Aeronautical Engineering Teacher Name Role Phone Dionte Vega MD Primary Care Provider [phone] Reason for Visit * Reason Comments Establish Care B Breast pain/ L Debbie ast Mass - Birads 3 Encounter Details Date Type Department Care Team (Late st Contact Info) Description 07/02/2019 10:50 AM CDT Office Visit [facility] Breast Surgery [facility] [address] [address] Kelly Torrez, NO ADDRESS ON FILE Mastodynia (Primary Dx); Left breast lump; Abnormal ultrasound of breast; Morbid obesity with body mass index of 40.0-49.9 Social History Tobacco Use Types Packs/Day Years [...] Sign Reading Time Taken Comments Blood Pressure 119/66 07/02/2019 11:22 AM CDT Pulse 88 07/02/2019 11:22 AM CDT Temperature 36.9 ??C (98.5 ??F) 07/02/2019 1 1:22 AM CDT Respiratory Rate - - Oxygen Saturation 97% 07/02/2019 11: 22 AM CDT Inhaled Oxygen Concentration - - Weight 122.2 kg (269 lb 6.4 oz) 019 11:22 AM CDT Height 162.6 cm (5' 4 ) 07/02/2019 11:2 2 AM CDT Body Mass Index 46.24 07/02/2019 11:22 AM CDT documented in this encounter Progress Notes * Saima Charles RN - 07/02/2019 12:14 PM CDT 1. Chief Complaint? B breast pain and left lump ??? When did this start? Left lump for 1 year; pain started March 2019 2. Referring Physician? Dr. Rick 3. Monthly Self Breast Exams? yes 4. Yearly MMG? no 5. Any Breast changes or symptoms? no 6. Hx of any prior Breast Procedure? no 7. Hx of Breast CA? no 8. Any other CA? no 9. Family hx of Breast CA or Ovarian CA? PGM - BC, lung, and brain - dx 40s - 60 yrs 10. Family hx of any other CA? MGF - prostate PGF - colon 11. Age of menarche? 9 12. Last menstrual period? 06/15/19 13. How many pregnancies? 2 ??? How many live births? 2 o age of first live ? 29 o Breastfeed? 32mos; stopped April 2019 14. Ever use control? Depo 4 yrs; OCPs 4 yrs 15. Any Hormone Replacement Therapy? no 16. Bra size? 42D 17. Ashkenazi heritage? no 18. Smoker? Former, quit 2010, 1ppd 10 yrs 19. Any other pertinent surgeries or hx? See med hx * Kelly Torrez DO - 07/02/2019 11:42 AM CDT PATIENT: Araceli Cedeno : 1985 DATE: 07/02/2019 CHIEF COMPLAINT: Chief Complaint Patient presents with ??? Establish Care B Breast pain/ L Breast Mass - Birads 3 HISTORY OF PRESENT ILLNESS: Araceli Cedeno is a 34 y.o. female referred by Dr Rick for evaluation and recommendations regarding left breast lump x 1 year, no change in size at inner breast, walnutsized. Stopped breast feeding late March, but while [...] No longer taking any antibiotics, and pain slightly better, intermittent, sometimes sharp. Patient checks breasts regularly: yes; Annual mammograms: none Trauma to breasts: none Prior breast PROCEDURE(s): none FHx: BC: Paternal GM dx 40s, lung [...] Outpatient Medications Medication Sig Dispense Refill ??? cyanocobalamin (VITAMIN B-12) 1,000 mcg Tablet Take 1,000 mcg by mouth daily. ??? CALCIUM CITRATE ORAL Take 400 mg by mouth. ??? loratadine (CLARITIN ORAL) Take by mouth. ??? labetalol (NORMODYNE) 200 mg tablet ??? magnesium oxide 500 mg Capsule Take by mouth. ??? SAVELLA 50 mg tablet Take 50 mg by mouth 2 times daily. 3 ??? Pyridoxine 200 mg Tablet Sustained Release Take 300 mg by mouth. ??? Cholecalciferol, Vitamin D3, 2,000 unit Capsule Take 2,000 Units by mouth. ??? ALPRAZolam (XANAX) 0.25 mg tablet No current facility-administered medications for this visit. [...] Last attempt to quit: 07/02/2011 Years since quittin.0 ??? Smokeless tobacco: Never Used Substance and [...] file Gets together: Not on file Attends voodoo service: Not on file Active member of [...] noted above. Immunizations: non-contributory PHYSICAL EXAM: BP 119/66 (BP Location: Right arm, Patient Position (BP): Sitting, BP Cuff Size: Adult) Pulse 88 Temp 98.5 ??F (36.9 ??C) (Oral) Ht 5' 4 (1.626 m) Wt 122.2 kg (269 lb 6.4 oz) LMP 06/15/2019 (Exact Date) SpO2 97% ? No BMI 46.24 kg/m?? Breasts: The patient was examined in the seated and supine positions, with muscles at rest, and with pectoral flexion. no cervical, supraclavicular, axillary lymphadenopathy. Breast symmetry: Right breast larger than left Other findings: On visual exam, there are no skin changes, no areas of erythema, no rashes. The nipples bilaterally are normal, everted and without discharge. The right breast is without palpable abnormalities. In the left lower inner breast, there is an area of density which blends into the surrounding tissues. This is the area of the patient's concern. Ultrasound was done: Targeted left breast ultrasound at 8:00 8 cm from the nipple shows a taller than wide, isoechoic, poorly demarcated lesion which is minimally vascular and measures 1.48 x 2.23 x 1.89 cm. At 6:00 3 cm from the nipple the area of the radiologist concern shows simply dilated ductswith no abnormality. Left axillary lymph nodes are normal. General: well-developed, well-nourished HEENT: normocephalic/atraumatic. Extra-occular movements [...] intact. Alert and oriented x 3. IMAGING: Bilateral ultrasound was done at [facility] on 04/15/2019. The finding identified isin the left breast at 6:00 3 cm from the nipple showing an irregularly shaped complex cystic mass measuring 10 x 6 x 4 mm ASSESSMENT AND PLAN: Encounter Diagnoses Name Primary? Mastodynia Yes ??? Left breast lump ??? Abnormal ultrasound of breast ??? Morbid obesity with body mass index of 40.0-49.9 I explained to the patient that in fact the area that was seen on outside ultrasound as a complex cystic mass appears to be simply several dilated ducts in this area. I do not see any lesion of concern at the 6:00 site. Furthermore, it is not uncommon for a woman who recently stopped breast-feedingto have dilated ducts that remain. As far as the lump that she feels is concerned, I explained to the patient that this is separate from what was seen on outside ultrasound. However on today's ultrasound, I do see a lesion which corresponds to the palpable area of concern. Because of its nonspecificity, I do recommend an ultrasound-guided biopsy. Ultrasound guided biopsy procedure, alternatives, common and uncommon risks, benefitsand expected outcomes were explained. The patient was given literature of the same, and would like to move ahead with scheduling. As far as her breast pain is concerned, I explained that it is not uncommon to have bilateral breast pain. The patient was under the impression that this was very unusual. I discussed breast pain in detail. I explained that breast pain is one of the most difficult things that we, as breast surgeons, treat. It can be due to many different factors, including hormonal, stress, caffeine intake, chocolate, alcohol or even carbohydrate intake. If she has not yet had a bra fitting, I do recommend thatshe does this, especially since her right breast is larger than the left. It is likely that her brais not fitting her properly. She can also keep a journal of breast pain and its relationship to theabove factors. This often will help to decipher exactly what is causing the breast pain. However, in general, it is rare that we can determine exactly the reason behind breast pain. TOBACCO COUNSELING She is not a tobacco user. Patient's questions were solicited and fully answered. Patient stated understanding. Kelly Torrez DO, FACOS This note was transcribed using Speech Recognition software. As a result, there may be grammatical and spelling errors that are unintended. If there are any questions or major inaccuracies, please contact me. documented in this encounter Miscellaneous Notes * Patient Instructions - Kelly Torrez DO - 07/02/2019 12:10 PM CDT Evening primrose oil 1000 mg 3 times a day Take for at least 6 weeks to see effects If not working after 6 weeks, stop taking the supplement If you are having less breast pain with the supplement, continue taking it documented in this encounter Plan of Treatment Not on file documented as of this encounter Procedures Procedure Name Priority Date/Time Associated Diagnosis Comments US BREAST UNI LT LTD Routine 07/02/2019 Mastodynia documented in this encounter Results * US BREAST UNI LT LTD (07/02/2019) Anatomical Region Laterality Modality Left Other Impressions 07/02/2019 See note. Kelly Torrez DO US ORDERABLES documented in this encounter Visit Diagnoses Diagnosis Mastodynia- Primary Left breast lump Lump or mass in breast Abnormal ultrasound of breast Other (abnormal) findings on radiological examination of breast Morbid obesity with body mass index of 40.0-49.9 documented in this encounter Care Teams Aeronautical Engineering Teacher Relationship Specialty Start Date End Date Dionte Vega MD [address] [place] [address] PCP - General Family Practice 05/25/10 documented as of this encounter
--- OUTSIDE RECORDS SUMMARY | 2024-09-16 07:43 | XMS_ITS | Encounter Summary ---
Author Organization [facility] Address [address] [place] [address] Care Team Providers Care Lab Technologist Name Role Phone Dionte Vega MD Primary Care Provider [phone] Encounter Details Date Type Department Care Team (Latest Contact Info) Description 04/15/2019 11:20 AM CDT - 04/15/2019 11:59 PM CDT Hospital Encounter [facility] Christophe [address] [place] [address] [facility], External Provider [address] [place] [address] Discharge Disposition: Home or Self Care Social [...] Associated Diagnosis Comments MAMMO PRIOR STUDY Routine 04/15/2019 11: 20 AM CDT Follow up documented in this encounter Results * MAMMO PRIOR STUDY (04/15/2019 11:20 AM CDT) Narrative 12/12/2020 11:16 AM CDT This exam was auto finalized to allow images to be scanned to PACS. External Provider [facility] DIAGNOSTIC IMAGI NG ORDERABLES documented in this encounter Visit Diagnoses Diagnosis Follow up documented in this encounter Care Teams Lab Technologist Relationship Specialty Start Date End Date Dionte Vega MD [address] [place] [address] PCP - General Family Practice 05/25/10 documented as of this encounter
--- OUTSIDE RECORDS SUMMARY | 2024-09-16 07:43 | XMS_ITS | Encounter Summary ---
Author Organization [facility] Address [address] [place] [address] Care Team Providers Care Computer Mechanic Name Role Phone Dionte Vega MD Primary Care Provider [phone] Encounter Details Date Type Department Care Team (Latest Contact Info) Description 10/14/2017 11:20 AM RESOLUTION REP - 10/14/2017 11:59 PM RESOLUTION REP Hospital Encounter [facility] Christophe [address] [place] [address] [facility], External Provider [address] [place] [address] Discharge Disposition: Home or Self Care Social [...] Associated Diagnosis Comments MAMMO PRIOR STUDY Routine 10/14/2017 11: 20 AM RESOLUTION REP Follow up documented in this encounter Results * MAMMO PRIOR STUDY (10/14/2017 11:20 AM RESOLUTION REP) Narrative 12/12/2020 11:19 AM CDT This exam was auto finalized to allow images to be scanned to PACS. External Provider [facility] DIAGNOSTIC IMAGI NG ORDERABLES documented in this encounter Visit Diagnoses Diagnosis Follow up documented in this encounter Care Teams Computer Mechanic Relationship Specialty Start Date End Date Dionte Vega MD [address] [place] [address] PCP - General Family Practice 05/25/10 documented as of this encounter
--- OUTSIDE RECORDS SUMMARY | 2024-09-16 07:43 | XMS_ITS | Encounter Summary ---
Author Organization [facility] [employer] [facility] Address [address] [place] [address] Care Team Providers Care Confidential Secretary Name Role Phone Dionte Vega MD Primary Care Provider [phone] Reason for Visit * Reason Comments Biopsy L USG Core Bx Encounter Details Date Type Department Care Team (Latest Contact Info) Description 08/03/2019 10:15 AM SCREEN PRINTING LOADER UNLOADER Procedure visit [facility] Breast Surgery [facility] [address] [address] Kelly Torrez DO NO ADDRESS ON FILE Left breast lump (Primary Dx); Abnormal ultrasound of breast Social History Tobacco Use Types Packs/Day Years [...] Sign Reading Time Taken Comments Blood Pressure 115/74 08/03/2019 10:24 AM SCREEN PRINTING LOADER UNLOADER Pulse 82 08/03/2019 10:24 AM SCREEN PRINTING LOADER UNLOADER Temperature 36.8 ??C (98.3 ??F) 08/03/2019 10:[address] Respiratory Rate - - Oxygen Saturation 98% 08/03/2019 10:24 AM SCREEN PRINTING LOADER UNLOADER Inhaled Oxygen Concentration - - Weight 117.5 kg (259 lb) 08/03/2019 10:24 AM SCREEN PRINTING LOADER UNLOADER Height 162.6 cm (5' 4 ) 08/03/2019 10:24 AM SCREEN PRINTING LOADER UNLOADER Body Mass Index 44.46 08/03/2019 10:24 AM SCREEN PRINTING LOADER UNLOADER documented in this encounter Progress Notes * Saima Charles RN - 08/03/2019 3:04 PM CST [id number] - marquee - 18g - Marker: coil SenoMark UltraCor Breast Tissue Marker, [id number] 14G x 10cm Lot: [id number] Exp: [id number] Lidocaine 1% (50mg/5mL) Lot: [id number] Exp: 10/2022 Dose: 1mL Lidocaine 1% and Epinepherine 1:100,000 (50mL) Lot: [id number] Exp: [id number] Dose: 5mL Sensorcaine 0.25% (50mL) Lot: [id number] Exp: [id number] Dose: 2mL EN PRINTING LOADER UNLOADER * Kelly Torrez DO - 08/03/2019 10:15 AM CST The patient is here for left ultrasound guided core biopsy. Encounter Diagnoses Name Primary? Left breast lump Yes ??? Abnormal ultrasound of breast Consent was reviewed with the patient and signed. 12-gauge core ultrasound guided procedure was done. The location of the biopsy was at left 8:00 8 cm from the nipple characteristics: taller than wide, isoechoic, poorly demarcated lesion which is minimally vascular and measures 1.48 x 2.23 x 1.89 cm. BIRADS: 3 Needle approach: Inferolateral A marker was placed. yes and Coil shaped placement: Marker in perfect position within the lesion. Anesthetic used: Lidocaine 1% 1 mL, lidocaine 1% with epinephrine 5 mL, Marcaine 0.25% 2 mL Specimen: multiple cores Number of cores: 5 PROCEDURE: The area of concern was localized with ultrasonography, and the skin was prepped and draped in the standard surgical fashion. The skin was infiltrated with anesthetic, as were the deep tissues. A small incision was made in the skin, and the biopsy needle was advanced into the breast under direct visualization. Multiple cores were taken under direct visualization as specimen and sent to pathology. Photo do cumentation was taken throughout. Pressure was applied for hemostasis, and steri strips and gauze were applied. A post-biopsy mammogram was done. no Pt was given discharge instructions and a follow up appointment. Questions were solicited and answered. The patient stated her understanding. This note was transcribed using Speech Recognition software. As a result, there may be grammatical and spelling errors that are unintended. If there are any questions or major inaccuracies, please contact me. EN PRINTING LOADER UNLOADER documented in this encounter Procedure Notes * Kelly Torrez DO - 08/03/2019 10:49 AM CSTAssociated Order(s): BIOPSY BREAST Procedure(s): [place] BX BREAST W/DEVICE 1ST LESION ULTRASOUND GUID Pre-Procedure Diagnose(s): Left breast lump; Abnormal ultrasound of breast See note, left breast EN PRINTING LOADER UNLOADER documented in this encounter Plan of Treatment Not on file documented as of this encounter Procedures Procedure Name Priority Date/Time Associated Diagnosis Comments W[place] BX BREAST W/DEVICE 1ST LESION ULTRASOUND GUID Routine 08/03/2019 10:49 AM SCREEN PRINTING LOADER UNLOADER Left breast lump Abnormal ultrasound of breast documented in this encounter Results * W[place] BX BREAST W/DEVICE 1ST LESION ULTRASOUND GUID (08/03/2019 10:49 AM SCREEN PRINTING LOADER UNLOADER) Narrative Kelly Torrez DO - 08/03/2019 10:49 AM SCREEN PRINTING LOADER UNLOADER Kelly Torrez DO ? 08/03/2019 10:49 AM See note, left breast Kelly Torrez DO PROCEDURE/MINOR MATHIEU GICAL ORDERABLES documented in this encounter Visit Diagnoses Diagnosis Left breast lump- Primary Lump or mass in breast Abnormal ultrasound of breast Other (abnormal) findings on radiological examination of breast documented in this encounter Care Teams Confidential Secretary Relationship Specialty Start Date End Date Dionte Vega MD [address] [place] [id number] PCP - General Family Practice 05/25/10 documented as of this encounter
--- OUTSIDE RECORDS SUMMARY | 2024-09-16 07:43 | XMS_ITS | Encounter Summary ---
Author Organization [facility] Address [address] [place] [address] Care Team Providers Care Stringed Instrument Repairer Name Role Phone Dionte Vega MD Primary Care Provider [phone] Encounter Details Date Type Department Care Team (Latest Contact Info) Description 10/28/2017 11:25 AM ASSEMBLER CHASSIS - 10/28/2017 11:59 PM ASSEMBLER CHASSIS Hospital Encounter [facility] Christophe Mol[address] [place] [address] [facility], External Provider [address] [place] [address] Discharge Disposition: Home or Self Care Social [...] Associated Diagnosis Comments MAMMO PRIOR STUDY Routine 10/28/2017 11: 25 AM ASSEMBLER CHASSIS Follow up documented in this encounter Results * MAMMO PRIOR STUDY (10/28/2017 11:25 AM ASSEMBLER CHASSIS) Narrative 12/12/2020 11:18 AM CDT This exam was auto finalized to allow images to be scanned to PACS. External Provider [facility] DIAGNOSTIC IMAGI NG ORDERABLES documented in this encounter Visit Diagnoses Diagnosis Follow up documented in this encounter Care Teams Stringed Instrument Repairer Relationship Specialty Start Date End Date Dionte Vega MD [address] [place] [address] PCP - General Family Practice 05/25/10 documented as of this encounter
--- OUTSIDE RECORDS SUMMARY | 2024-09-16 07:43 | XMS_ITS | Encounter Summary ---
Author Organization [facility] Address [address] [place] [address] Care Team Providers Care Appliance Installer Name Role Phone Dionte Vega MD Primary Care Provider [phone] Encounter Details Date Type Department Care Team (Latest Contact Info) Description 10/28/2017 11:20 AM KEY ACCOUNT EXECUTIVE - 10/28/2017 11:59 PM KEY ACCOUNT EXECUTIVE Hospital Encounter [facility] Christophe [address] [place] [address] [facility], External Provider [address] [place] [address] Discharge Disposition: Home or Self Care Social [...] Comments MAMMO PRIOR STUDY Routine 10/28/2017 11: 20 AM KEY ACCOUNT EXECUTIVE Follow up documented in this encounter Results * MAMMO PRIOR STUDY (10/28/2017 11:20 AM KEY ACCOUNT EXECUTIVE) Narrative 12/12/2020 11:18 AM CDT This exam was auto finalized to allow images to be scanned to PACS. External Provider [facility] DIAGNOSTIC IMAGI NG ORDERABLES documented in this encounter Visit Diagnoses Diagnosis Follow up documented in this encounter Care Teams Appliance Installer Relationship Specialty Start Date End Date Dionte Vega MD [address] [place] [address] PCP - General Family Practice 05/25/10 documented as of this encounter
--- OUTSIDE RECORDS SUMMARY | 2024-09-16 07:43 | XMS_ITS | Encounter Summary ---
Author Organization [facility] [employer] [facility] Address [address] [place] [address] Care Team Providers Care Network Operations Technician Name Role Phone Dionte Vega MD Primary Care Provider [phone] Encounter Details Date Type Department Care Team (Late st Contact Info) Description 08/03/2019 Orders Only [facility] Breast Surgery [facility] [address] [facility] [address] [place] [address] Provider, Abstract NO ADDRESS ON FILE [...] on filedocumented in this encounter Care Teams Network Operations Technician Relationship Specialty Start Date End Date Dionte Vega MD [address] [place] [id number] PCP - General Family Practice 05/25/10 documented as of this encounter
--- OUTSIDE RECORDS SUMMARY | 2024-09-16 07:43 | XMS_ITS | Encounter Summary ---
Author Organization [facility] Address [address] [place] [address] Care Team Providers Care Scruff Worker Name Role Phone Dionte Vega MD Primary Care Provider [phone] Encounter Details Date Type Department Care Team (Latest Contact Info) Description 04/15/2019 11:25 AM CDT - 04/15/2019 11:59 PM CDT Hospital Encounter [facility] Christophe [address] [place] [address] [facility], External Provider [address] [place] [address] Discharge Disposition: Home or Self Care Social [...] Comments MAMMO PRIOR STUDY Routine 04/15/2019 11: 25 AM CDT Follow up documented in this encounter Results * MAMMO PRIOR STUDY (04/15/2019 11:25 AM CDT) Narrative 12/12/2020 11:16 AM CDT This exam was auto finalized to allow images to be scanned to PACS. External Provider [facility] DIAGNOSTIC IMAGI NG ORDERABLES documented in this encounter Visit Diagnoses Diagnosis Follow up documented in this encounter Care Teams Scruff Worker Relationship Specialty Start Date End Date Dionte Vega MD [address] [place] [address] PCP - General Family Practice 05/25/10 documented as of this encounter
--- OUTSIDE RECORDS SUMMARY | 2024-09-16 07:44 | XMS_ITS | Encounter Summary ---
Author Organization [facility] Address [address] [place] [address] Care Team Providers Care Avionics Electronics Technician Name Role Phone Dionte Vega MD Primary Care Provider [phone] Reason for Visit * Reason Comments Abdominal Pain c/o 2 months of abd pain, increasing. pt had vaginal u/s yesterday and reports 8 ovarian cysts, located bilaterally. reports one hemorhhagic. advised to come to ed for increased pain radiating to back. +n -v Encounter Details Date Type Department Care Team (Late st Contact Info) Description 05/25/2010 5:42 PM CDT - 05/25/2010 9:24 PM CDT Emergency [facility] Emergency Department [address] [place] [address] Jasper Howard DO [address] [facility] [place] [address] Abdominal Pain; Ovarian Cyst Discharge Disposition: Home or Self Care Social [...] Sign Reading Time Taken Comments Blood Pressure 154/96 05/25/2010 8:48 PM CDT Pulse 78 05/25/2010 8:48 PM CDT Temperature 36.6 ??C (97.9 ??F) 05/25/2010 5:29 PM CD T Respiratory Rate 16 05/25/2010 8:48 PM CDT Oxygen Saturation 99% 05/25/2010 8:48 PM CDT Inhaled Oxygen Concentration - - Weight - - Height - - Body Mass Index - - documented in this encounter Discharge Instructions * Attachments The following attachments cannot be sent through Care Everywhere. * ABDOMINAL PAIN: AFTER YOUR VISIT TO THE EMERGENCY ROOM ([facility]) documented in this encounter ED Notes * St[facility] Scanning, [facility] - 05/29/2010 5:07 PM CDT * Stl Scanning, [facility] - 05/29/2010 5:00 PM CDT * Karmen Ospina RN - 05/25/2010 9:23 PM CDT Patient discharged to home viaambulatory with steady gait with friend. Patient states feeling better. Discharge information and education provided to patient. Questions answered, understanding of discharge instruction verbalized. Printed copy given. * Karmen Ospina RN - 05/25/2010 8:58 PM CDT MD to bedside for re-eval. * Karmen Ospina RN - 05/25/2010 8:51 PM CDT MD previously to CT. Pt reports pain coming back. Now 01/06. MD notified. VSS. Friend at bedside. Call light within reach. * Karmen Ospina RN - 05/25/2010 7:25 PM CDT to bedside to re-eval and update poc. * Jasper Howard DO - 05/25/2010 6:19 PM CDT HISTORY OF PRESENT ILLNESS Araceli Cedeno, a 25 y.o. female presents to the ED with a Chief Complaint of Abdominal Pain HPI Comments: She was seen by an DEPOSITION REPORTER yesterday Dr. Hernandez, was found to have multiple cysts on her ovaries. Admits to nausea vomiting constipation, no hematochezia noted. Patient is a 25 y.o. female presenting with abdominal pain. The history is provided by the patient. Abdominal Pain This is a new problem. The current episode started yesterday. The problem occurs constantly. The problem has not changed since onset. The pain is associated with an unknown factor. The pain is located in the suprapubic region. The quality of the pain is aching. The pain is at a severity of 7/10. The pain is moderate. Pertinent negatives include anorexia, fever, belching, diarrhea, flatus, hematochezia, melena, nausea, vomiting, constipation, dysuria, frequency, hematuria, headaches, arthralgiasand myalgias. Nothing aggravates the symptoms. Nothing relieves the symptoms. Past workup does not include GI consult, CT scan, ultrasound, surgery or barium enema. Her past medical history does not include PUD, gallstones, GERD, ulcerative colitis, Crohn's disease or irritable bowel syndrome. REVIEW OF SYSTEMS Review of Systems Constitutional: Negative for fever and chills. HENT: Negative for hearing loss, nosebleeds, congestion, sore throat and tinnitus. Eyes: Negative for double vision, photophobia and pain. Respiratory: Negative for cough, hemoptysis, shortness of breath and wheezing. Cardiovascular: Negative for chest pain, palpitations, orthopnea and leg swelling. Gastrointestinal: Positive for abdominal pain. Negative for heartburn, nausea, vomiting, diarrhea, constipation, blood in stool, melena and hematochezia. Genitourinary: Negative for dysuria, urgency, frequency, hematuria and flank pain. Musculoskeletal: Negative for myalgias, back pain, joint pain and arthralgias. Skin: Negative for rash and itching. Neurological: Negative for dizziness, sensory change, focal weakness, seizures, loss of consciousness, weakness and headaches. Endo/Heme/Allergies: Negative for environmental allergies. Psychiatric/Behavioral: Negative for depression, suicidal ideas and substance abuse. The patient does not have insomnia. PAST MEDICAL HISTORY REVIEWED Past Medical History Diagnosis Date ??? Migraines ??? PCOS (Polycystic Ovarian Syndrome) ??? Headache Past Surgical History Procedure Date ??? Hx pelvic laparoscopy No family history on file. History Social History Main Topics ??? Tobacco Use: Never ??? Alcohol Use: No ??? Drug Use: No ??? Sexually Active: Not Currently ALLERGIES [employer]er[employer] HOME MEDICATIONS Patient's Home Medications New Prescriptions for this Encounter OXYCODONE-ACETAMINOPHEN (PERCOCET) 5-325 MG ORAL TABLET Take 1 Tab by mouth every 4 hours as neededfor Pain. Current Home Medications [id number] (MIDRIN) 325-65-100 MG ORAL CAPSULE Take 1 Cap by mouth every 4 hours as needed. FLUTICASONE (FLONASE) 50 MCG/SPRAY BOTH NOSTRIL SPSN Administer 2 Sprays in each nostril daily. HYDROCODONE-ACETAMINOPHEN (LORTAB) 5-500 MG ORAL TABLET Take 1 Tab by mouth every 6 hours as needed. HYOSCYAMINE (LEVSIN) 0.[address] 0.125 mg under tongue every 4 hours as needed. KETOROLAC TROMETHAMINE (TORADOL) 10 MG ORAL TABLET Take 10 mg by mouth every 4 hours as needed. LORAZEPAM (ATIVAN) 0.5 MG ORAL TABLET Take 0.5 mg by mouth every 6 hours as needed. NAPROXEN SODIUM (ANAPROX DS) 550 MG ORAL TABLET Take 550 mg by mouth 2 times daily with meals. OMEPRAZOLE (PRILOSEC) 40 MG ORAL CPDR Take 40 mg by mouth daily. PAROXETINE HCL (PAXIL) 10 MG ORAL TABLET Take 10 mg by mouth daily. SUMATRIPTAN (IMITREX) 100 MG ORAL TABLET Take 100 mg by mouth see administration instructions. TIZANIDINE (ZANAFLEX) 4 MG ORAL CAP Take 4 mg by mouth daily at bedtime. ZONISAMIDE (ZONEGRAN) 100 MG ORAL CAPSULE Take 200 mg by mouth daily at bedtime. Medications Modified during this Encounter Medications Discontinued during this Encounter PHYSICAL EXAM Initial Vitals BP 05/25/10 1729 150/103 mmHg Pulse 05/25/10 1729 87 Resp 05/25/10 1729 22 Temp 05/25/10 1729 97.9 ??F (36.6 ??C) Temp src 05/25/10 1729 Oral SpO2 05/25/10 1729 96 % Physical Exam Nursing note and vitals reviewed. Constitutional: She is oriented to person, place, and time. She appears well- developed and well-nourished. No distress. HENT: Head: Normocephalic and atraumatic. Nose: Nose normal. Eyes: Conjunctivae and extraocular motions are normal. Pupils are equal, round, and reactive to light. Right eye exhibits no discharge. Left eye exhibits no discharge. Neck: Normal range of motion. Neck supple. No JVD present. No thyromegaly present. Cardiovascular: Normal rate, regular rhythm, normal heart sounds and intact distal pulses. Exam reveals no gallop and no friction rub. No murmur heard. Pulmonary/Chest: Breath sounds normal. No stridor. She has no wheezes. She has no rales. Abdominal: Soft. Bowel sounds are normal. She exhibits no distension. No tenderness. She has no rebound. Musculoskeletal: Normal range of motion. She exhibits no edema and no tenderness. Neurological: She is alert and oriented to person, place, and time. No cranial nerve deficit. Coordination normal. Skin: Skin is warm and dry. No rash noted. She is not diaphoretic. No erythema. No pallor. Psychiatric: She has a normal mood and affect. Judgment normal. MDM Coding Reviewed: nursing note and vitals Interpretation: labs DIAGNOSTICS LAB: Results for orders placed during the hospital encounter of 05/25/10 (from the past 24 hour(s)) CBC WITH DIFFERENTIAL Component Value Range ??? WBC 10.1 (*) 4.0-9.8 (K/uL) ??? RBC 5.01 (*) 3.90-4.90 (M/uL) ??? HEMOGLOBIN 14.3 11.8-14.8 (g/dL) ??? HEMATOCRIT 40.3 35.5-44.0 (%) ??? MCV 80.4 (*) 82.0-99.0 (fL) ??? MCH 28.5 27.2-32.6 (pg) ??? MCHC 35.5 31.5-35.5 (%) ??? PLATELETS 319 140-350 (K/uL) ??? MPV 10.6 9.3-12.4 (fL) ??? RDW 13.2 11.5-14.5 (%) ??? RDW-STDEV 38.5 37.1-48.7 (fL) ??? NEUTROPHILS 53 45-70 (%) ??? LYMPHOCYTES 38 16-45 (%) ??? MONOCYTES 6 3-13 (%) ??? EOSINOPHILS 2 0-7 (%) ??? BASOPHILS 1 0-2 (%) ??? NEUTROPHIL ABSOLUTE 5.32 1.90-7.00 (K/uL) ??? LYMPHOCYTE ABSOLUTE 3.87 0.70-4.50 (K/uL) ??? MONOCYTE ABSOLUTE 0.60 0.10-1.30 (K/uL) ??? EOSINOPHIL ABSOLUTE 0.22 0.00-0.70 (K/uL) ??? BASOPHILS ABSOLUTE 0.06 0.00-0.20 (K/uL) COMPREHENSIVE METABOLIC PANEL Component Value Range ??? SODIUM 137 135-145 (mmol/L) ??? POTASSIUM 3.5 3.5-4.9 (mmol/L) ??? CHLORIDE 107 96-108 (mmol/L) ??? CO2 18 (*) 22-30 (mmol/L) ??? CALCIUM 9.4 8.6-10.2 (mg/dL) ??? BUN 9 6-20 (mg/dL) ??? CREATININE 0.72 0.51-0.95 (mg/dL) ??? GLUCOSE 107 (*) 65-99 (mg/dL) ??? TOTAL PROTEIN 7.2 6.3-8.6 (g/dL) ??? ALBUMIN 4.3 3.4-4.8 (g/dL) ??? BILIRUBIN TOTAL 0.4 0.2-1.0 (mg/dL) ??? ALKALINE PHOSPHATASE 53 35-104 (U/L) ??? AST 15 12-32 (U/L) ??? ALT 19 0-31 (U/L) ? ? GFR, >60 >=60 (mL/min/1.7 sq meter) ? ? GFR >60 >=60 (mL/min/1.7 sq meter) HCG QUANTITATIVE, BLOOD Component Value Range ? ? HCG QUANT, BLOOD <5 0-5 (mIU/mL) URINALYSIS WITH REFLEX CULTURE Component Value Range ??? URINE CULTURE ORDER Not indicated URINALYSIS Component Value Range ??? COLOR UA Yellow ??? CLARITY UA Clear Clear ??? SPECIFIC GRAVITY UA 1.014 1.001-1.035 ??? PH UA 6.0 5.0-8.0 ??? LEUKOCYTE ESTERASE UA Negative Negative ??? NITRITE UA Negative Negative ??? PROTEIN UA Negative Negative ??? GLUCOSE UA Negative Negative ??? KETONES UA Negative Negative ? ? UROBILINOGEN UA <1 <=1 (mg/dL) ??? BILIRUBIN UA Negative Negative ??? BLOOD UA 1+ (*) Negative ??? WBC UA 2 0-5 (/HPF) ??? RBC UA 3 0-4 (/HPF) ??? BACTERIA UA 1+ (*) None Seen (/HPF) ??? EPITHELIAL CELLS, URINE 2-5 (/HPF) RADIOLOGY: CT ABDOMEN PELVIS W CONTRAST (Results Pending) EKG: PROCEDURES MEDICAL DECISION MAKING AND PLAN OF CARE Last vitals BP 154/96 Pulse 78 Temp(Src) 97.9 ??F (36.6 ??C) (Oral) Resp 16 SpO2 99% LMP 05/08/2010 CLINICAL IMPRESSION Encounter Diagnoses Code Name Primary? 789.00AP Abdominal Pain ??? 620.2S Ovarian Cyst CASE DISCUSSED Dr Weber for [place] PATIENT COUNSELING Diagnostics reviewed and questions answered. Diagnosis, treatment options and plan of care discussed with understanding verbalized. DISPOSITION, EDUCATION AND MEDICATION RECONCILIATION Medications reconciled. See after visit summary for patient education on discharged patients. * Karmen Ospina RN - 05/25/2010 6:09 PM CDT Agree with triage summary. MD to bedside. New orders received. documented in this encounter Plan of Treatment Not on file documented as of this encounter Procedures Procedure Name Priority Date/Time Associated Diagnosis Comments CT ABDOMEN PELVIS W CONTRAST Stat 05/25/2010 8:07 PM CDT HCG QUANTITATIVE, BLOOD Stat 05/25/2010 6:49 PM CDT URINALYSIS WITH REFLEX CULTURE Stat 05/25/2010 6:23 PM CDT URINALYSIS W/REFLEX MICROSCOPIC Stat 05/25/2010 6:23 PM CDT CBC WITH DIFFERENTIAL Stat 05/25/2010 6:10 PM CDT COMPREHENSIVE METABOLIC PANEL Stat 05/25/2010 6:10 PM CDT documented in this encounter Results * CT ABDOMEN PELVIS W CONTRAST (05/25/2010 8:07 PM CDT) Anatomical Region Laterality Modality Abdomen Computed Tomogra phy 05/25/2010 8:00 PM CDT Impressions 05/25/2010 10:38 PM CDT IMPRESSION: Both ovaries enlarged and containing cysts. The appearance is unchanged versus 06/20/2008. Narrative 05/25/2010 10:[address] SCAN OF ABDOMEN AND PELVIS WITH IV CONTRAST 05/25/2010 HISTORY: Abdominal pain. Patient had an examination by DEPOSITION REPORTER doctor yesterday showing multiple cysts on the ovaries. The patient has nausea, vomiting and constipation. FINDINGS: Retained material is present in the stomach. The liver and spleen are normal. Pancreas is normal. Adrenal glands are normal. Kidneys are excreting contrast material symmetrically. There is some retained stool present in the colon. The appendix is not clearly visualized. Retroperitoneum is normal. No free air or free fluid is identified in the abdomen. The gallbladder is not enlarged. Examination of the pelvis shows the uterus is not enlarged. Both ovaries appear to be enlarged and low attenuation, consistent with multiple bilateral ovarian cysts. These are about the same as on the prior exam. The left ovary measures about 6 cm in maximum size. The right measures about 5.2 cm in size. Bladder contains unopacified urine. Procedure Note Hubert Wong MD - 05/25/2010 CT SCAN OF ABDOMEN AND PELVIS WITH IV CONTRAST 05/25/2010 HISTORY: Abdominal pain. Patient had an examination by DEPOSITION REPORTER doctor yesterday showing multiple cysts on the ovaries. The patient has nausea, vomiting and constipation. FINDINGS: Retained material is present in the stomach. The liver and spleen are normal. Pancreas is normal. Adrenal glands are normal. Kidneys are excreting contrast material symmetrically. There is some retained stool present in the colon. The appendix is not clearly visualized. Retroperitoneum is normal. No free air or free fluid is identified in the abdomen. The gallbladder is not enlarged. Examination of the pelvis shows the uterus is not enlarged. Both ovaries appear to be enlarged and low attenuation, consistent with multiple bilateral ovarian cysts. These are about the same as on the prior exam. The left ovary measures about 6 cm in maximum size. The right measures about 5.2 cm in size. Bladder contains unopacified urine. IMPRESSION IMPRESSION: Both ovaries enlarged and containing cysts. The appearance is unchanged versus 06/20/2008. Jasper Howard DO CT ORDERABLES * HCG QUANTITATIVE, BLOOD (05/25/2010 6:49 PM CDT) HCG QUANT, BLOOD <5 0 - 5 mIU/mL [facility] Comment: Result of 5 - 25 mIU/mL is indeterminant for , repeat of test recommemded in 48 hours. Reference Range: Gestational Age: 3 ??Weeks ?5.8 - 71.2 ?mIU/mL 4 ??Weeks ?9.5 - 750 ? mIU/mL 5 ??Weeks ?330 - 1640 ?mIU/mL 6 ??Weeks ?158 - 31,795 ?mIU/mL 7 ??Weeks ? 3697 - 163,563 ?? mIU/mL 8 ??Weeks ? 32,065 - 149,571 ?? mIU/mL 9 ??Weeks ? 63,803 - 151,410 ?? mIU/mL 10 Weeks ? 46,509 - 186,977 ?? mIU/mL 12 Weeks ? 27,832 - 210,612 ?? mIU/mL 14 Weeks ? 13,950 - 62,530 ?mIU/mL 15 Weeks ? 12,039 - 70,971 ?mIU/mL 16 Weeks ? 9040 - 56,451 ?mIU/mL 17 Weeks ? 8175 - 55,868 ?mIU/mL 18 Weeks ? 8099 - 58,176 ?mIU/mL Heterophile antibodies and other interfering substances in the serum of some patients may cause a false-positive result in this assay. ??Before making a diagnosis of malignancy or ectopic ,the result of this test should be confirmed with a urine HCG test and correlated with other clinical evidence. Blood specimen (specimen) 05/25/2010 6:49 PM CDT 05/25/2010 6:52 PM CDT Jasper Howadr DO CHEMISTRY ORDERABLES [facility] CLIA# [id number] [address] [facility] [place] [address] * (ABNORMAL) URINALYSIS (05/25/2010 6:23 PM CDT) COLOR UA Yellow [facility] CLARITY UA Clear Clear [facility] SPECIFIC GRAVITY UA 1.014 1.001 - 1.035 [facility] PH UA 6.0 5.0 - 8.0 [facility] LEUKOCYTE ESTERASE UA Negative Negative [facility] NITRITE UA Negative Negative [facility] PROTEIN UA Negative Negative [facility] GLUCOSE UA Negative Negative [facility] KETONES UA Negative Negative [facility] UROBILINOGEN UA <1 <=1 mg/dL [facility] BILIRUBIN UA Negative Negative [facility] BLOOD UA 1+(A) Negative [facility] WBC UA 2 0 - 5 /HPF [facility] RBC UA 3 0 - 4 /HPF [facility] BACTERIA UA 1+(A) None Seen /HPF [facility] EPITHELIAL CELLS, URINE 2-5 /HPF [facility] 05/25/2010 6:23 PM CDT 05/25/2010 6:51 PM CDT Comment:URINE VOIDED Jasper Howard DO URINE ORDERABLES Performing Organization Address [facility] Co de Phone Number [facility] CLIA# [id number] [address] [place] [address] * URINALYSIS WITH REFLEX CULTURE (05/25/2010 6:23 PM CDT) Pathologist [facility] URINE CULTURE ORDER Not indicated [facility] Comment: Criteria for a reflex culture include one or more of the following: ??Abnormal nitrite, leukocyte esterase, WBCs or RBCs. ??Lack of qualifying criteria does not exclude the possiblity of a urinary tract infection. ??Dilute urine, drug interference, etc. may decrease the sensitivity of the criteria analytes. Urine, clean catch 05/25/2010 6:23 PM CDT 05/25/2010 6:51 PM CDT Comment:URINE VOIDED Jasper Howard DO URINE ORDERABLES Performing Organization Address City/[facility]/ZIP Co de Phone Number [facility] CLIA# [id number] [address] [place] [address] * (ABNORMAL) COMPREHENSIVE METABOLIC PANEL (05/25/2010 6:10 PM CDT) SODIUM 137 135 - 145 mmol/L [facility] POTASSIUM 3.5 3.5 - 4.9 mmol/L [facility] CHLORIDE 107 96 - 108 mmol/L [facility] CO2 18(L) 22 - 30 mmol/L [facility] CALCIUM 9.4 8.6 - 10.2 mg/dL [facility] BUN 9 6 - 20 mg/dL [facility] CREATININE 0.72 0.51 - 0.95 mg/dL [facility] GLUCOSE 107(H) 65 - 99 mg/dL [facility] TOTAL PROTEIN 7.2 6.3 - 8.6 g/dL [facility] ALBUMIN 4.3 3.4 - 4.8 g/dL [facility] BILIRUBIN TOTAL 0.4 0.2 - 1.0 mg/dL [facility] ALKALINE PHOSPHATASE 53 35 - 104 U/L [facility] AST 15 12 - 32 U/L [facility] ALT 19 0 - 31 U/L [facility] GFR, >60 >=60 mL/min/1. 7 sq meter [facility] GFR >60 >=60 mL/min/1. 7 sq meter [facility] Comment: Modification of Diet in Renal Disease (MDRD) study formula. Estimated GFR rate interpretative information for both Americans and non- Americans is available on the [facility] Intranet at: [email or web address] Select: Lab Policies and Procedures Select: Reference Ranges - GFR Blood specimen (specimen) 05/25/2010 6:10 PM CDT 05/25/2010 6:14 PM CDT Jasper Howard DO CHEMISTRY ORDERABLES [facility] CLIA# [id number] [address] [place] [address] * (ABNORMAL) CBC WITH DIFFERENTIAL (05/25/2010 6:10 PM CDT) WBC 10.1(H) 4.0 - 9.8 K/uL [facility] RBC 5.01(H) 3.90 - 4.90 M/uL [facility] HEMOGLOBIN 14.3 11.8 - 14.8 g/dL [facility] HEMATOCRIT 40.3 35.5 - 44.0 % [facility] MCV 80.4(L) 82.0 - 99.0 fL [facility] MCH 28.5 27.2 - 32.6 pg [facility] MCHC 35.5 31.5 - 35.5 % [facility] PLATELETS 319 140 - 350 K/uL [facility] MPV 10.6 9.3 - 12.4 fL [facility] RDW 13.2 11.5 - 14.5 % [facility] RDW-STDEV 38.5 37.1 - 48.7 fL [facility] NEUTROPHILS 53 45 - 70 % [facility] LYMPHOCYTES 38 16 - 45 % [facility] MONOCYTES 6 3 - 13 % [facility] EOSINOPHILS 2 0 - 7 % [facility] BASOPHILS 1 0 - 2 % [facility] NEUTROPHIL ABSOLUTE 5.32 1.90 - 7.00 K/uL [facility] LYMPHOCYTE ABSOLUTE 3.87 0.70 - 4.50 K/uL [facility] MONOCYTE ABSOLUTE 0.60 0.10 - 1.30 K/uL [facility] EOSINOPHIL ABSOLUTE 0.22 0.00 - 0.70 K/uL [facility] BASOPHILS ABSOLUTE 0.06 0.00 - 0.20 K/uL [facility] Blood specimen (specimen) 05/25/2010 6:10 PM CDT 05/25/2010 6:14 PM CDT Jasper Howard DO HEMATOLOGY ORDERABLE S [facility] CLIA# [id number] [address] [address] documented in this encounter Visit Diagnoses Diagnosis Abdominal pain Abdominal pain, unspecified site Ovarian cyst Other and unspecified ovarian cyst documented in this encounter Administered Medications Inactive Administered Medications - up to 3 most recent administrations Medication Order MAR Action Action Date Dose Rate Site ioversol (OPTIRAY 320) 320 mg/mL syringe 125 mL 125 mL, IV, INTRA-PROCEDURE ONCE, 1 dose, Starting on Fri05/25/10 at 2008, Until Fri05/25/10 at 1999 Given 05/25/2010 8:00 PM CDT 125 mL morphine injection 5 mg 5 mg, IV, ONE TIME ONLY, 1 dose, On Fri05/25/10 at 1830, Routine Given 05/25/2010 6:43 PM CDT 5 mg morphine injection 5 mg 5 mg, IV, ONE TIME ONLY, 1 dose, On Fri05/25/10 at 1930, Routine Given 05/25/2010 7:31 PM CDT 5 mg morphine injection 5 mg 5 mg, IV, ONE TIME ONLY, 1 dose, On Fri05/25/10 at 2100, Routine Given 05/25/2010 9:10 PM CDT 5 mg ondansetron (ZOFRAN) 4 mg/2 mL injection 4 mg 4 mg, IV, ONE TIME ONLY, 1 dose, On Fri05/25/10 at 1830, Routine Given 05/25/2010 6:43 PM CDT 4 mg sodium chloride 0.9 % infusion IV, at 150 mL/hr, CONTINUOUS, Starting on Fri05/25/10 at 1830, Until Fri05/25/10 at 2324, Routine New Bag 05/25/2010 6:43 PM CDT 1,000 mL 150 mL /hr documented in this encounter Active and Recently Administered Medications Times are shown in CDT. Scheduled Medication Order 05/23/2010 05/24/2010 05/25/2010 ioversol (OPTIRAY 320) 320 mg/mL syringe 125 mL (COMPLETED) 125 mL, IV, INTRA-PROCEDURE ONCE, 1 dose, Starting on Fri05/25/10 at 2008, Until Fri05/25/10 at 1999 1999 (Given - Provid er: Amol Moser, RT) morphine injection 5 mg (COMPLETED) 5 mg, IV, ONE TIME ONLY, 1 dose, On Fri05/25/10 at 1830, Routine 1843 (Given - Provid er: Karmen Ospina RN) morphine injection 5 mg (COMPLETED) 5 mg, IV, ONE TIME ONLY, 1 dose, On Fri05/25/10 at 1930, Routine 193 (Given - Provid er: Karmen Ospina RN) morphine injection 5 mg (COMPLETED) 5 mg, IV, ONE TIME ONLY, 1 dose, On Fri05/25/10 at 2100, Routine 2110 (Given - Provid er: Karmen Ospina RN) ondansetron (ZOFRAN) 4 mg/2 mL injection 4 mg (COMPLETED) 4 mg, IV, ONE TIME ONLY, 1 dose, On Fri05/25/10 at 1830, Routine 1843 (Given - Provid er: Karmen Ospina RN) Continuous Medication Order 05/23/2010 05/24/2010 05/25/2010 sodium chloride 0.9 % infusion (CANCELED) IV, at 150 mL/hr, CONTINUOUS, Starting on Fri05/25/10 at 1830, Until Fri05/25/10 at 2324, Routine 1843 (New Bag - Prov ider: Karmen Ospina RN) documented in this encounter Care Teams Avionics Electronics Technician Relationship Specialty Start Date End Date Dionte Vega MD [address] [place] [address] PCP - General Family Practice 05/25/10 documented as of this encounter
--- OUTSIDE RECORDS SUMMARY | 2024-09-16 07:45 | XMS_ITS | Encounter Summary ---
Author Organization [facility] Address [address] [place] [address] Care Team Providers Care Program Therapist Name Role Phone Dionte Vega MD Primary Care Provider [phone] Encounter Details Date Type Department Care Team (Late st Contact Info) Description 06/20/2008 Outpatient Historical [facility] Er, Authorized P NO ADDRESS ON FILE Kayden Anderson [place] [address] Social History Tobacco Use Types Packs/Day Years Used Date Smoking Tobacco: Never Assessed Sex and Gender Information Value Date Recorded Sex Assigned at Not on file Gender Identity Not on file Sexual Orientation Not on file documented as of this encounter Plan of Treatment Not on file documented as of this encounter Procedures Procedure Name Priority Date/Time Associated Diagnosis Comments CT ABDOMEN PELVIS WO CONTRAST Stat 06/20/2008 2:27 PM CDT POC , URINE Routine 06/20/2008 12:59 PM CDT POC URINALYSIS DIPSTICK NON AUTOMATED Routine 06/20/2008 12:59 PM CDT documented in this encounter Results * CT ABDOMEN PELVIS WO CONTRAST (06/20/2008 2:27 PM CDT) Anatomical Region Laterality Modality Abdomen Other 06/20/2008 2:27 PM CDT Narrative 06/20/2008 2:56 PM CDT [facility] ? [address] ?[place], [place] [id number] ?Admit Date: 06/20/2008 ?SUMMER ABRAMS ?Sex: F ?Admit Prov: ER, AUTHORIZED P ? Date: 1985 ?Primary Care Prov: ? CMRN: [id number] ?Room: ER-A ? SSN: [id number] ? IMAGING SERVICES ?Ordering Prov: N/A ? Accession Number: [id number] ?Interpretation ? CT of the abdomen and pelvis without contrast. ? History: Left flank pain. ? Findings: The abdomen and pelvis are scanned x 5 mm intervals without the ? use of intravenous contrast. ?No stones are seen within the kidneys. There is a questionable jesica of ? calcium measuring 1 mm in the region of the distal left ureter at the level ? of the ureterovesical junction seen on image 84. This may represent a very ? tiny distal ureteral stone. Otherwise no stones are seen along the course ? of the ureters and there is no periureteral or perirenal inflammatory ? change or dilatation. ?The nonenhanced liver, spleen, adrenals and pancreas have a normal ? appearance. No adnexal masses are seen and there is no free fluid. There is ? no bowel obstruction. ? Opinion: Question of very tiny distal left ureteral stone. Clinical ? correlation is recommended. ? . ? Dictated by: ??TENNILLE ERVIN ?06/20/2008 14:51 ? Electronically signed by: ??TENNILLE EVRIN ?06/20/2008 14:55 Procedure Note Tennille Ervin MD - 06/20/2008 [facility] [place] [address], [place] [address] Admit Date: 06/20/2008 SUMMER ABRAMS Sex: F Admit Prov: HAWA ZUNIGA P Date: 1985 Primary Care Prov: CMRN: [id number] [facility]: [id number] IM[facility]ING [facility] Ordering Prov: N/A Interpretation CT of the abdomen and pelvis without contrast. History: Left flank pain. Findings: The abdomen and pelvis are scanned x 5 mm intervals withoutthe use of intravenous contrast. No stones are seen within the kidneys. There is a questionable fleckof calcium measuring 1 mm in the region of the distal left ureter at thelevel of the ureterovesical junction seen on image 84. This may represent teri tiny distal ureteral stone. Otherwise no stones are seen along thecourse of the ureters and there is no periureteral or perirenalinflammatory change or dilatation. The nonenhanced liver, spleen, adrenals and pancreas have a normal appearance. No adnexal masses are seen and there is no free fluid.There is no bowel obstruction. Opinion: Question of very tiny distal left ureteral stone. Clinical correlation is recommended. . Dictated by: TENNILLE ERVIN 06/20/2008 14:51 Electronically signed by: TENNILLE ERVIN 06/20/2008 14:[address] ORDERABLES * (ABNORMAL) POC URINALYSIS DIPSTICK NON AUTOMATED (06/20/2008 12:59 PM CDT) SPECIFIC GRAVITY UA 1.015 1.001 - 1.030 [facility] GLUCOSE UA Negative Negative [facility] COLOR UA Pale [facility] NITRITE UA Negative Negative [facility] BILIRUBIN UA Negative Negative [facility] PH UA 6.0 5.0 - 8.0 [facility] KETONES UA Negative Negative [facility] CLARITY UA Clear [facility] PROTEIN UA Negative Negative [facility] BLOOD UA 1+(A) Negative [facility] LEUKOCYTE ESTERASE UA Trace(A) Negative [facility] UROBILINOGEN UA Normal <=1 mg/dL [facility] Urine specimen (specimen) 06/20/2008 12:59 PM CDT 06/20/2008 12:59 PM CDT Authorized P Er POINT OF CARE TESTIN G INTERFACE SYSTEM Refer to clinic/hospital department [facility] CLIA# [id number] [address] [address] * POC , URINE (06/20/2008 12:59 PM CDT) , URINE POC Negative Negative [facility] SPECIFIC GRAVITY UA 1.015 1.001 - 1.035 [facility] Urine specimen (specimen) 06/20/2008 12:59 PM CDT 06/20/2008 12:59 PM CDT Authorized P Er POINT OF CARE TESTIN G INTERFACE SYSTEM Refer to clinic/hospital department [facility] CLIA# [id number] [address] [place] [address] documented in this encounter Visit Diagnoses Not on filedocumented in this encounter Care Teams Program Therapist Relationship Specialty Start Date End Date Dionte Vega MD [address] [place] [address] PCP - General Family Practice 05/25/10 documented as of this encounter
--- OUTSIDE RECORDS SUMMARY | 2024-09-16 07:45 | XMS_ITS | Continuity of Care Document ---
Author Organization [employer] Address [address] [place] [address] Phone Care Team Providers Care Lawyer Real Estate Name Role Phone Nathalia Arndt PTA Unavailable Unavailable Procedures Procedure Date Therapeutic Activities Neuromuscular Re-Ed Therapeutic Exercise Therapeutic Activities Neuromuscular Re-Ed Therapeutic Exercise Therapeutic Activities Neuromuscular Re-Ed Therapeutic Exercise Therapeutic Activities Neuromuscular Re-Ed Therapeutic Exercise Progress Note Therapeutic Activities Neuromuscular Re-Ed Therapeutic Exercise Therapeutic Activities Neuromuscular Re-Ed Therapeutic Exercise Therapeutic Activities Neuromuscular Re-Ed Therapeutic Exercise Therapeutic Activities Neuromuscular Re-Ed Therapeutic Exercise Therapeutic Activities Neuromuscular Re-Ed Therapeutic Exercise Therapeutic Activities Neuromuscular Re-Ed Therapeutic Exercise Therapeutic Activities Neuromuscular Re-Ed Therapeutic Exercise Therapeutic Activities Neuromuscular Re-Ed Therapeutic Exercise Therapeutic Activities Neuromuscular Re-Ed Therapeutic Exercise Therapeutic Activities Neuromuscular Re-Ed Therapeutic Exercise Progress Note Therapeutic Activities Therapeutic Exercise Neuromuscular Re-Ed Therapeutic Activities Neuromuscular Re-Ed Therapeutic Exercise Therapeutic Activities Neuromuscular Re-Ed Therapeutic Exercise Therapeutic Activities Neuromuscular Re-Ed Therapeutic Exercise Therapeutic Activities Neuromuscular Re-Ed Therapeutic Exercise Therapeutic Activities Neuromuscular Re-Ed Therapeutic Exercise Therapeutic Activities Neuromuscular Re-Ed Therapeutic Exercise Therapeutic Activities Neuromuscular Re-Ed Therapeutic Exercise Therapeutic Activities Neuromuscular Re-Ed Therapeutic Exercise Therapeutic Activities Neuromuscular Re-Ed Therapeutic Exercise Therapeutic Activities Neuromuscular Re-Ed Therapeutic Exercise Manual Therapy Progress Note Therapeutic Activities Neuromuscular Re-Ed Therapeutic Exercise Therapeutic Activities Neuromuscular Re-Ed Therapeutic Exercise Manual Therapy Therapeutic Activities Neuromuscular Re-Ed Therapeutic Exercise Manual Therapy Therapeutic Activities Neuromuscular Re-Ed Therapeutic Exercise Manual Therapy Durable medical equipment nj Therapeutic Activities Neuromuscular Re-Ed Manual Therapy Therapeutic Exercise Therapeutic Activities Therapeutic Exercise Manual Therapy Therapeutic Activities Manual Therapy Therapeutic Exercise Therapeutic Activities Therapeutic Exercise Manual Therapy Therapeutic Activities Neuromuscular Re-Ed Therapeutic Exercise Manual Therapy PT Evaluation Low Complexity Therapeutic Activities Therapeutic Exercise Advance Directives Directive Yes / No Effective Date File Name No Information Encounters Encounter Description Practice Location Reason(s) For Visit Diagnoses Date Provider Providers Copied on Encounter [facility] [address], [id number], tel:[phone] [place] No Information Hair Sloan. . Referring Provider: Thomas Patel Jr [address], [place], [address]. tel:[phone] [place] [address], [id number], tel:[phone] [place] No Information Frank Marie. . Referring Provider: Thomas Patel Jr [address], [place], [address]. tel:[phone] [facility] [address], [id number], tel:[phone] [place] No Information Ponchos Nathalia. . Referring Provider: Thomas Patel Jr [address], [place], [address]. tel:[phone] [facility] [address], [id number], tel:[phone] [place] No Information Komis Nathalia. . Referring Provider: Thomas Patel Jr, [address], [place], [address]. tel:[phone] [facility] [address], [place], [place], [id number], tel:[phone] [place] No Information Jesse Cynthia. . Referring Provider: Thomas Patel Jr, [address], [place], [address]. tel:[phone] [facility] [address], [place], [place], [id number], tel:[phone] [place] No Information Frank Cynthia. . Referring Provider: Thomas Patel Jr [address], [place], [address]. tel:[phone] [place] [address] [address], [place], [place], [id number], tel:[phone] [place] No Information Komis Nathalia. . Referring Provider: Thomas Patel Jr, [address], [place], [address]. tel:[phone] [facility] [address], [place], [place], [id number], tel:[phone] [place] No Information Papciak Khoi. . Referring Provider: Thomas Patel Jr [address], [place], [address]. tel:[phone] [facility] [address], [place], [place], [id number], tel:[phone] [place] No Information Komis Nathalia. . Referring Provider: Thomas Patel Jr [address], [place], [address]. tel:[phone] [facility], [place], [place], [id number], tel:[phone] [place] No Information Jesse Cynthia. . Referring Provider: Thomas Patel Jr, [address], [place], [address]. tel:[phone] [place] [address] [address], [place], [place], [id number], tel:[phone] [place] No Information Jesse Cynthia. . Referring Provider: Thomas Patel Jr, [address], [place], [address]. tel:[phone] [place] [address] [address], [place], [place], [id number], tel:[phone] [place] No Information Frank Cynthia. . Referring Provider: Thomas Patel Jr, [address], [place], [address]. tel:[phone] [place] [address] [address], [place], [place], [id number], tel:[phone] [place] No Information Komis Nathalia. . Referring Provider: Thomas Patel Jr, [address], [place], [address]. tel:[phone] [place] [address] [address], [place], [place], [id number], [place] tel:[phone] [place] No Information Komis Nathalia. . Referring Provider: Thomas Patel Jr, [address], [place], [address]. tel:[phone] [facility], [place], [place], [id number], tel:[phone] [place] No Information Frank Cynthia. . Referring Provider: Thomas Patel Jr, [address], [place], [address]. tel:[phone] [facility] [address], [place], [place], [id number], tel:[phone] [place] No Information Komis Nathalia. . Referring Provider: Thomas Patel Jr, [address], [place], [address]. tel:[phone] [facility] [address], [place], [place], [id number], [place] tel:[phone] [place] No Information Komis Nathalia. . Referring Provider: Thomas Patel Jr, [address], [place], [address]. tel:[phone] [place] [address] [address] [facility] [address], [place], [place], [id number], tel:[phone] [place] No Information Frank Cynthia. . Referring Provider: Thomas Patel Jr, [address], [place], [address]. tel:[phone] [place] [address] [address], [place], [place], [id number], tel:[phone] [place] No Information Jesse Cynthia. . Referring Provider: Thomas Patel Jr, [address], [place], [address]. tel:[phone] [facility] [address], [place], [place], [id number], tel:[phone] [place] No Information Jesse Cynthia. . Referring Provider: Thomas Patel Jr, [address], [place], [address]. tel:[phone] [place], [place] [address] [address], [place], [place], [address], tel:[phone] [place] No Information Frank Cynthia. . Referring Provider: Thomas Patel Jr, [address], [place], [address]. tel:[phone] [place] [address] [address], [place], [place], [id number], tel:[phone] [place] No Information Frank Cynthia. . Referring Provider: Thomas Patel Jr, [address], [place], [address]. tel:[phone] [place] [address] [address] [facility] [address], [place], [place], [id number], tel:[phone] [place] No Information Komis Nathalia. . Referring Provider: Thomas Patel Jr, [address], [place], [address]. tel:[phone] [place] [address] [address] [facility] [address], [place], [place], [id number], tel:[phone] [place] No Information Frank Cynthia. . Referring Provider: Thomas Patel Jr, [address], [place], [address]. tel:[phone] [place] [address] [address], [place], [place], [id number], tel:[phone] [place] No Information Komis Nathalia. . Referring Provider: Thomas Patel Jr, [address], [place], [address]. tel:[phone] [place] [address] [address], [place], [place], [id number], tel:[phone] [place] No Information Jesse Cynthia. . Referring Provider: Thomas Patel Jr, [address], [place], [address]. tel:[phone] [facility] [address], [place], [place], [id number], tel:[phone] [place] No Information Komis Nathalia. . Referring Provider: Thomas Patel Jr, [address], [place], [address]. tel:[phone] [facility] [address], [place], [place], [address], [place] tel:[phone] [place] No Information Komis Nathalia. . Referring Provider: Thomas Patel Jr [address], [place], [address]. tel:[phone] [place] [address] [address], [place], [place], [id number], tel:[phone] [place] No Information Frank Cynthia. . Referring Provider: Thomas Patel Jr [address], [place], [address]. tel:[phone] [place] [address] [address] [facility] [address], [place], [place], [id number], tel:[phone] [place] No Information Frank Cynthia. . Referring Provider: Thomas Patel Jr, [address], [place], [address]. tel:[phone] [facility] [address], [place], [place], [id number], [place] tel:[phone] [place] No Information Komis Nathalia. . Referring Provider: Thomas Patel Jr [address], [place], [address]. tel:[phone] [facility] [address], [id number], tel:[phone] [place] No Information Frank Marie. . Referring Provider: Thomas Patel Jr [address], [place], [address]. tel:[phone] [facility] [address], [id number], tel:[phone] [place] No Information Komis Nathalia. . Referring Provider: Thomas Patel Jr [address], [place], [address]. tel:[phone] [facility] [address], [id number], tel:[phone] [place] No Information Komis Nathalia. . Referring Provider: Thomas Patel Jr [address], [place], [address]. tel:[phone], [id number], tel:[phone] [place] No Information Frank Marie. . Referring Provider: Thomas Patel Jr [address], [place], [address]. tel:[phone] Family History Family Member Type Diagnosis Age At Onset No Information Payers Payer name Insurance type Covered republican ID Nicolcm zariaanalilia(s) [facility] CI [id number] Social History Type Description Quantity Date Captured Comments Sex Female Smoking Status No Information Chief Complaint And Reason For Visit No Information Reason For Referral Reason For Referral No Information History Of Present Illness Encounter Date Complaint History Of Prese nt Illness No Information Functional Status Date Functional Assessmen t No Information Instructions Date Instruction Additional Infor mation Giving encouragement to exercise Related to Overweight Giving encouragement to exercise Related to Overweight Assessments Type Assessment Date No Information Patient Care Teams Name Effective Dates (start - stop) Status Members No Information
--- OUTSIDE RECORDS SUMMARY | 2024-09-16 07:45 | XMS_ITS | Continuity of Care Document ---
Author Organization [facility] Address [address] [place] [address] Phone Care Team Providers Care Automotive Production Worker Name Role Phone Nadir Loo PT Unavailable Unavailable Procedures Procedure Date Neuromuscular Re-Ed Therapeutic Exercise Electrical Stimulation Therapeutic Exercise Manual Therapy Neuromuscular Re-Ed Neuromuscular Re-Ed Therapeutic Exercise Manual Therapy Neuromuscular Re-Ed Therapeutic Exercise Manual Therapy Therapeutic Exercise Neuromuscular Re-Ed PT Evaluation Low Complexity Advance Directives Directive Yes / No Effective Date File Name No Information Encounters Encounter Description Practice Location Reason(s) For Visit Diagnoses Date Provider Providers Copied on Encounter [facility], [address] [place], [place] [address] [place] [address], [id number], tel:[phone] [place] No Information Eze Schmitz. . [facility], [id number], tel:[phone] [place] No Information Eze Ren . Referring Provider: Armando Blanchard, [address] [place] [address], [place], [address]. tel:[phone] 8337 [facility], [address] [place] [address], [id number], tel:[phone] [place] No Information Eze Nadir. . Referring Provider: Armando Blanchard, [address] [place] [address], [address]. tel:[phone] [facility], [facility] [place] [facility] [address], [id number], tel:[phone] [place] No Information Nov-0 7 Eze Nadir. . Referring Provider: Armando Blanchard, [address] [place] [address], [address]. tel:[phone] [facility], [address] [place] [address], [id number], tel:[phone] [place] No Information Eze Nadir. . Referring Provider: Armando Blanchard, [address] [place] [address]. tel:[phone] [facility], [address], [id number], tel:[phone] [place] Other bursitis of hip, right hipLumbago with sciatica, right sideAcute right-sided low back pain with right-sided sciaticaWeakness of backHip stiffness, right Fe- Eze Nadir. . Referring Provider: Armando Blanchard, [address] [place] [address], [address]. tel:[phone] Family History Family Member Type Diagnosis Age At Onset No Information Payers Payer name Insurance type Covered green party ID Jeffery zeng(s) [facility] [id number] Social History Type Description Quantity Date Captured Comments Sex Female Smoking Status No Information Chief Complaint And Reason For Visit No Information Reason For Referral Reason For Referral No Information History Of Present Illness Encounter Date Complaint History Of Prese nt Illness No Information Functional Status Date Functional Assessmen t No Information Instructions Date Instruction Additional Infor mation No Information Assessments Type Assessment Date No Information Patient Care Teams Name Effective Dates (start - stop) Status Members No Information
--- OUTSIDE RECORDS SUMMARY | 2024-09-16 10:56 | XMS_ITS | Encounter Summary ---
Author Organization [facility] Address [address] [place] [address] Care Team Providers Care Pals Specialist Name Role Phone Dionte Vega MD Primary Care Provider [phone] Reason for Visit * Reason Onset Date Comments Results 02/15/2021 Encounter Details Date Type Department Care Team (Late st Contact Info) Description 02/15/[address] [facility] BREAST SURGERY - CLY[place] CLRKSN [address] [facility] [address] [place] [address] [place] [address] [facility] [address] [place] [address] Results Social History Tobacco Use [...] Range CASE REPORT Surgical Pathology Report Case: [id number] Authorizing Provider: Erika Martinez MD Collected: 02/09/2021 01:38 PM Ordering Location: [facility] Received: 02/12/2021 06:16 AM Operating Room Pathologist: Jed Contreras MD Specimen: Breast, right, Upper inner quadrant, short superior, long lateral FINAL DIAGNOSIS Breast, right, upper inner quadrant, excisional biopsy with needle localization: - 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 - Margins negative; 4 mm from posterior margin. - Sclerosing adenosis. - Fibrocystic changes and lactational change. - Prior biopsy site ([id number]). GROSS DESCRIPTION The specimen is received fresh [...] other palpable lesions or calcifications are identified. Training Professional sections are submitted as follows: A1 and A2-perpendicular sections through superior resection margin, or level 1; A3 and A4-level 3; A5 through A7-level 5; A8 through B71-dsuvo 6; A11 through N16-rufxu 7; A14 and A74-qmawm 9; A16 and A17- level 11; A18 and Z36-lqyel 13; A20 and I78-hvzzenwaevjtz sections through inferior resection margin, or level 15. [facility] MICROSCOPIC DESCRIPTION The slides are labeled [id number] and Araceli Cedeno. The right breast upper [...] developed and its performance characteristics determined by [facility], Department of Laboratory Medicine. It has [...] part or completely in the following laboratories: [facility], [facility] #[id number] [place] [address] [facility], [facility] #[id number] [address] [place] [address] [facility], [facility] #[id number] [address] [place] [address] I explained that her results were benign, [...] skin documented in this encounter Care Teams Pals Specialist Relationship Specialty Start Date End Date Dionte Vega MD [address] [place] [address] PCP - General Family Practice 05/25/10 documented as of this encounter
--- OUTSIDE RECORDS SUMMARY | 2024-09-16 10:56 | XMS_ITS | Clinical Summary ---
Author Organization [facility] Address [address] [place] [address] Phone Care Team Providers Care Fur Liner Name Role Phone Dionte Vega MD Primary [...] OXALATE ORAL Take by mouth. Active OM [id number] HYTOST ORAL Take by mouth. Active evening [...] 08/09/2019 Immunizations Name Administration Dates Next Due ([employer])(12 YR UP) COVID-19 VACCINE - EMERGENCY USE AUTHORIZATION, MRNA, [id number]) 30 MCG/0.3 ML IM SUSP 12/29/2020,11/30/2020 Family [...] this topic Medical Devices Implanted Type Area Taxi Dancer Device Identifier Shelf Expiration Date Model / Serial / Lot Hemostatic Surgicel 2x3in 1953 - [id number] Implanted:Qty : 1 on 02/09/2021 by Erika Martinez MD at [facility] Hemostatic Right: Breast [employer] [id number] 10/29/20241952 / / [id number] Breast Biopsy Clips-Bilater al Procedures Procedure Name [...] Recently Relevant to Health Maintenance Care Teams Fur Liner Relationship Specialty Start Date End Date Dionte Vega MD [address] [place] [address] PCP - General Family Practice 05/25/10
--- OUTSIDE RECORDS SUMMARY | 2024-09-16 10:56 | XMS_ITS | Encounter Summary ---
Author Organization [facility] Address [address] [facility] Attn: Epic Prelude ADT [place]NA [place]AN [address] Care Team Providers Care Lead Blender Name Role Phone Dionte Vega MD Primary Care Provider [phone] Encounter Details Date Type Department Care Team [...] on filedocumented in this encounter Care Teams Lead Blender Relationship Specialty Start Date End Date Dionte Vega MD [address] [place] [phone] PCP - General Family Practice 05/25/10 documented as of this encounter
--- OUTSIDE RECORDS SUMMARY | 2024-09-16 10:56 | XMS_ITS | Encounter Summary ---
Author Organization [facility] Address 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 [place] A [address] [place] [address] [place] [address] [facility] [address] [place] [address] Discharge Disposition: Home or Self [...] ESCITALOPRAM OXALATE ORAL Take by mouth. OM [id number] ST ORAL Take by mouth. evening primrose [...] right breast. Final pathology pending. DICTATION LOCATION: [facility] Narrative 02/09/2021 3:16 PM CDT ULTRASOUND [...] Site documented in this encounter Care Teams Autocad Draftsman Relationship Specialty Start Date End Date Dionte Vega MD [address] [place] [address] PCP - General Family Practice 05/25/10 documented as of this encounter
--- OUTSIDE RECORDS SUMMARY | 2024-09-16 10:56 | XMS_ITS | Encounter Summary ---
Author Organization [facility] Address [address] [place] [address] Care Team Providers Care Hospital Admissions Officer Name Role Phone Dionte Vega MD Primary Care Provider [phone] Reason for Referral * Radiology Services (Routine) - Closed Specialty Diagnoses / Procedures Referred By Jared bridges Referred To Contact Diagnoses Radial scar of breast Intraductal papilloma of breast, right Procedures MAMMO POST PROCEDURE [place] [address] [address] Referral ID Status Reason Start Date Expiration Date Visits Re quested Visits Authorized [id number] Closed 01/16/2021 02/16/2022 1 1 Reason for Visit * Auth/Cert Specialty Diagnoses / Procedures Referred By Jared bridges Referred To Contact Multi Specialty Diagnoses 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, right Procedures NM EXCISE BREAST LES W XRAY MARKER NM PERQ BREAST LOC DEVICE PLACEMT 1ST LESIO US IMAG NM PERQ DEVICE PLACEMT BREAST LOC 1ST LES W GUIDNCE RIGHT BREAST EXCISIONAL BIOPSY WITH NEEDLE LOCALIZATION [facility] Or [address] [place] [address] Referral ID Status Reason Start Date Expiration Date Visits Re quested Visits Authorized [id number] 1 1 Encounter Details Date Type Department Care Team (Latest Contact Info) Description 02/09/2021 8:44 AM CDT - 02/09/2021 11:59 PM CDT Hospital Encounter [facility] [place] A [address] [place] [address] Discharge Disposition: Home or Self Care Social [...] ESCITALOPRAM OXALATE ORAL Take by mouth. OM [id number] ST ORAL Take by mouth. evening primrose [...] right breast. Final pathology pending. DICTATION LOCATION: [facility] Narrative 02/09/2021 3:16 PM CDT ULTRASOUND [...] right breast. Final pathology pending. DICTATION LOCATION: [facility] Erika Martinez MD MAMMO ORDERABLES documented in this encounter Visit Diagnoses Diagnosis Radial scar of breast Scar condition and fibrosis of skin Intraductal papilloma of breast, right documented in this encounter Care Teams Hospital Admissions Officer Relationship Specialty Start Date End Date Dionte Vega MD [address] [place] [address] PCP - General Family Practice 05/25/10 documented as of this encounter
--- OUTSIDE RECORDS SUMMARY | 2024-09-16 10:57 | XMS_ITS | Encounter Summary ---
Author Organization [facility] [employer] [facility] Address [address] [place] [address] Care Team Providers Care Bleaching Supervisor Name Role Phone Dionte Vega MD Primary Care Provider [phone] Reason for Visit * Reason Comments Establish Care B Breast pain/ L Debbie ast Mass - Birads 3 Encounter Details Date Type Department Care Team (Late st Contact Info) Description 07/02/2019 10:50 AM CDT Office Visit [facility] Breast Surgery [place] [address] [address] Kelly Torrez, NO ADDRESS ON [...] file Gets together: Not on file Attends evangelical service: Not on file Active member of [...] 3. IMAGING: Bilateral ultrasound was done at [facility] on 04/15/2019. The finding identified isin the [...] 40.0-49.9 documented in this encounter Care Teams Bleaching Supervisor Relationship Specialty Start Date End Date Dionte Vega MD [address] [place] [address] PCP - General Family Practice 05/25/10 documented as of this encounter
--- OUTSIDE RECORDS SUMMARY | 2024-09-16 10:57 | XMS_ITS | Encounter Summary ---
Author Organization [facility] Address [address] [facility] Attn: Epic Prelude ADT DENA ROMAN [address] Care Team Providers Care Pyrotechnician Name Role Phone Dionte Vega MD Primary Care Provider [phone]- [phone] Encounter Details Date Type Department Care Team [...] on filedocumented in this encounter Care Teams Pyrotechnician Relationship Specialty Start Date End Date Dionte Vega MD [address] [place] [address] PCP - General Family Practice 05/25/10 documented as of this encounter
--- OUTSIDE RECORDS SUMMARY | 2024-09-16 10:57 | XMS_ITS | Encounter Summary ---
Author Organization [facility] Address [address] [place] [address] Care Team Providers Care Soaking Room Operator Name Role Phone Dionte Vega MD Primary Care Provider [phone] Reason for Visit * Reason Comments Follow Up post biopsy Encounter Details Date Type Department Care Team (Late st Contact Info) Description 01/16/2021 9:30 AM CDT Office Visit [facility] BREAST SURGERY - [place] CLRKSN [address] [facility] [place] [address] [place] [address] [place] [address] Radial scar of breast (Primary [...] treated by Dr. Torrez, breast surgeon at [facility] in [place] on 08/09/19 for follow-up after a left [...] sleeping. 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 ??? OM [id number] ORAL Take by mouth. ??? evening primrose [...] Gatherings with Friends and Family: ??? Attends Mu-Ism Services: ??? Active Member of Clubs or [...] Bilateral diagnostic mammogram, bilateral complete ultrasound - ([place], [place])- extremely dense. Probably benign left breast mass at 6:00, 3 cm from the nipple, irregular shapedcomplex cystic mass measures 1.0 x 0.6 x 0.4 cm, likely a complicated cyst or cluster of microcysts. BIRADS 3 - probably benign findings. 11/08/2020-bilateral diagnostic 3D mammogram, Bilateral ultrasound ([place], [place])-heterogeneously dense. Biopsy marker on the left [...] ectasia, no evidence of malignancy. (Dr. Torrez, [place], [place]). ----- 01/05/2021 - Right breast US [...] data. Erika Martinez MD Breast Surgical Oncology [facility] cc: Dionte Vega MD documented in this encounter Plan of Treatment Not on file documented as of this encounter Visit Diagnoses Diagnosis Radial scar of breast- Primary Scar condition and fibrosis of skin Intraductal papilloma of breast, right documented in this encounter Care Teams Soaking Room Operator Relationship Specialty Start Date End Date Dionte Vega MD [address] [place] [address] PCP - General Family Practice 05/25/10 documented as of this encounter
--- OUTSIDE RECORDS SUMMARY | 2024-09-16 10:57 | XMS_ITS | Encounter Summary ---
Author Organization [facility] Address 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 Operating Room [address] [place] [address] David Hansen MD [address] [place] [address] Anesthesia Record Procedure Summary Procedure [...] ml Output -- Net 30 ml Yosvany oLve MD 02/09/2021 2:51 PM Post Anesthesia Evaluation [...] mg documented in this encounter Care Teams Ground Crewman Aircraft Support Relationship Specialty Start Date End Date Dionte Vega MD [address] [place] [address] PCP - General Family Practice 05/25/10 documented as of this encounter
--- OUTSIDE RECORDS SUMMARY | 2024-09-16 10:57 | XMS_ITS | Encounter Summary ---
Author Organization [facility] [employer] [facility] Address [address] [place] [address] Care Team Providers Care Broadcast News Producer Name Role Phone Dionte Vega MD Primary Care Provider [phone] Reason for Visit * Reason Comments Biopsy L USG Core Bx Encounter Details Date Type Department Care Team (Latest Contact Info) Description 08/03/2019 10:15 AM BOTTOMING ROOM INSPECTOR Procedure visit [facility] Breast Surgery [place] [address] [address] Kelly Torrez DO NO ADDRESS [...] Comments Blood Pressure 115/74 08/03/2019 10:24 AM BOTTOMING ROOM INSPECTOR Pulse 82 08/03/2019 10:24 AM BOTTOMING ROOM INSPECTOR Temperature 36.8 ??C (98.3 ??F) 08/03/2019 10:[address] Respiratory Rate - - Oxygen Saturation 98% 08/03/2019 10:24 AM BOTTOMING ROOM INSPECTOR Inhaled Oxygen Concentration - - Weight 117.5 kg (259 lb) 08/03/2019 10:24 AM BOTTOMING ROOM INSPECTOR Height 162.6 cm (5' 4 ) 08/03/2019 10:24 AM BOTTOMING ROOM INSPECTOR Body Mass Index 44.46 08/03/2019 10:24 AM BOTTOMING ROOM INSPECTOR documented in this encounter Progress Notes * Saima Charles RN - 08/03/2019 3:04 PM CST [id number] - marquee - 18g - Marker: coil SenoMark UltraCor Breast Tissue Marker, [id number] 14G x 10cm Lot: [id number] Exp: [id number] Lidocaine 1% (50mg/5mL) Lot: [id number] Exp: 10/2022 Dose: 1mL Lidocaine 1% and Epinepherine 1:100,000 (50mL) Lot: [id number] Exp: [id number] Dose: 5mL Sensorcaine 0.25% (50mL) Lot: [id number] Exp: [id number] Dose: 2mL OMING ROOM INSPECTOR * Kelly Torrez DO - 08/03/2019 10:15 [...] questions or major inaccuracies, please contact me. OMING ROOM INSPECTOR documented in this encounter Procedure Notes * Kelly Torrez DO - 08/03/2019 10:49 AM CSTAssociated Order(s): BIOPSY BREAST Procedure(s): ME BX BREAST W/DEVICE 1ST LESION ULTRASOUND GUID Pre-Procedure Diagnose(s): Left breast lump; Abnormal ultrasound of breast See note, left breast OMING ROOM INSPECTOR documented in this encounter Plan of Treatment Not on file documented as of this encounter Procedures Procedure Name Priority Date/Time Associated Diagnosis Comments ME BX BREAST W/DEVICE 1ST LESION ULTRASOUND GUID Routine 08/03/2019 10:49 AM BOTTOMING ROOM INSPECTOR Left breast lump Abnormal ultrasound of breast documented in this encounter Results * ME BX BREAST W/DEVICE 1ST LESION ULTRASOUND GUID (08/03/2019 10:49 AM BOTTOMING ROOM INSPECTOR) Narrative Kelly Torrez DO - 08/03/2019 10:49 AM BOTTOMING ROOM INSPECTOR Kelly Torrez DO ? 08/03/2019 10:49 AM See note, left breast Kelly Torrez DO PROCEDURE/MINOR MATHIEU GICAL ORDERABLES documented in this encounter Visit Diagnoses Diagnosis Left breast lump- Primary Lump or mass in breast Abnormal ultrasound of breast Other (abnormal) findings on radiological examination of breast documented in this encounter Care Teams Broadcast News Producer Relationship Specialty Start Date End Date Dionte Vega MD [address] [place] [phone] PCP - General Family Practice 05/25/10 documented as of this encounter
--- OUTSIDE RECORDS SUMMARY | 2024-09-16 10:57 | XMS_ITS | Encounter Summary ---
Author Organization [facility] Address [address] [place] [address] Care Team Providers Care Network Contractor Name Role Phone Dionte Vega MD Primary Care Provider [phone] Encounter Details Date Type Department Care Team (Late st Contact Info) Description 11/10/2020 Orders Only [facility] BREAST SURGERY - CLYTN CLRKSN [address] [facility] [address] [place] [address] Provider, Abstract NO ADDRESS ON [...] COVID-19? Unable to assess 10/23/2020 10:18 AM KIER BOILER documented as of this encounter Plan of [...] filedocumented in this encounter Care Teams Network Contractor Relationship Specialty Start Date End Date Dionte Vega MD [address] [place] [address] PCP - General Family Practice 05/25/10 documented as of this encounter
--- OUTSIDE RECORDS SUMMARY | 2024-09-16 10:57 | XMS_ITS | Encounter Summary ---
Author Organization [facility] Address [address] [place] [address] Care Team Providers Care In Flight Refueling System Repairer Name Role Phone Dionte Vega MD Primary Care Provider [phone] Encounter Details Date Type Department Care Team (Latest Contact Info) Description 04/15/2019 11:25 AM CDT - 04/15/2019 11:59 PM CDT Hospital Encounter [facility] Christophe Mol[place] [address] [place] [address] [facility], External Provider [address] [place] [address] Discharge Disposition: Home or Self Care Social [...] to be scanned to PACS. External Provider [facility] DIAGNOSTIC IMAGI NG ORDERABLES documented in this encounter Visit Diagnoses Diagnosis Follow up documented in this encounter Care Teams In Flight Refueling System Repairer Relationship Specialty Start Date End Date Dionte Vega MD [address] [place] [address] PCP - General Family Practice 05/25/10 documented as of this encounter
--- OUTSIDE RECORDS SUMMARY | 2024-09-16 10:57 | XMS_ITS | Encounter Summary ---
Author Organization [facility] Address [address] [place] [address] Care Team Providers Care Cager Operator Name Role Phone Dionte Vega MD Primary Care Provider [phone] [phone] Reason for Visit * Reason Comments Abdominal [...] CDT - 05/25/2010 9:24 PM CDT Emergency [facility] Emergency Department [address] [place] [address] Jasper Howard DO [address] [facility] [place] [address] Abdominal Pain; Ovarian Cyst Discharge Disposition: Home [...] AFTER YOUR VISIT TO THE EMERGENCY ROOM ([place]) documented in this encounter ED Notes * Stl Scanning, [facility] - 05/29/2010 5:07 PM CDT * Stl Scanning, [facility] - 05/29/2010 5:00 PM CDT * [...] HPI Comments: She was seen by an [facility]FT[facility] yesterday Dr. Hernandez, was found to have [...] hours as neededfor Pain. Current Home Medications [id number] (MIDRIN) 325-65-100 MG ORAL CAPSULE Take 1 [...] Ovarian Cyst CASE DISCUSSED Dr Weber for [place] PATIENT COUNSELING Diagnostics reviewed and questions answered. [...] Abdominal pain. Patient had an examination by MFTS doctor yesterday showing multiple cysts on the [...] Abdominal pain. Patient had an examination by [facility]FT[facility] doctor yesterday showing multiple cysts on the [...] QUANT, BLOOD <5 0 - 5 mIU/mL [facility] Comment: Result of 5 - 25 mIU/mL is indeterminant for , repeat of test recommemded in 48 hours. Reference Range: Gestational Age: 3 ??Weeks ?5.8 - 71.2 ?mIU/mL 4 ??Weeks ?9.5 - 750 ? mIU/mL 5 ??Weeks ?393 - 3793 ?mIU/mL 6 ??Weeks ?158 - 31,795 ?mIU/mL [...] PM CDT 05/25/2010 6:52 PM CDT Jasper Howard DO CHEMISTRY ORDERABLES [facility] CLIA# [id number] [address] [facility] [place] [address] * (ABNORMAL) URINALYSIS (05/25/2010 6:23 PM CDT) COLOR UA Yellow [facility] CLARITY UA Clear Clear [facility] SPECIFIC GRAVITY UA 1.014 1.001 - 1.035 [facility] PH UA 6.0 5.0 - 8.0 [facility] LEUKOCYTE ESTERASE UA Negative Negative [facility] NITRITE UA Negative Negative [facility] PROTEIN UA Negative Negative [facility] GLUCOSE UA Negative Negative [facility] KETONES UA Negative Negative [facility] UROBILINOGEN UA <1 <=1 mg/dL [facility] BILIRUBIN UA Negative Negative [facility] BLOOD UA 1+(A) Negative [facility] WBC UA 2 0 - 5 /HPF [facility] RBC UA 3 0 - 4 /HPF [facility] BACTERIA UA 1+(A) None Seen /HPF [facility] EPITHELIAL CELLS, URINE 2-5 /HPF [facility] 05/25/2010 6:23 PM CDT 05/25/2010 6:51 PM CDT Comment:URINE VOIDED Jasper Howard DO URINE ORDERABLES Performing Organization Address [facility] Co de Phone Number [facility] CLIA# [id number] [address] [place] [address] * URINALYSIS WITH REFLEX CULTURE (05/25/2010 6:23 PM CDT) Pathologist [facility] URINE CULTURE ORDER Not indicated [facility] Comment: Criteria for a reflex culture [...] Howard DO URINE ORDERABLES Performing Organization Address City/[facility]/ZIP Co de Phone Number [facility] CLIA# [id number] [address] [place] [address] * (ABNORMAL) COMPREHENSIVE METABOLIC PANEL (05/25/2010 6:10 PM CDT) SODIUM 137 135 - 145 mmol/L [facility] POTASSIUM 3.5 3.5 - 4.9 mmol/L [facility] CHLORIDE 107 96 - 108 mmol/L [facility] CO2 18(L) 22 - 30 mmol/L [facility] CALCIUM 9.4 8.6 - 10.2 mg/dL [facility] BUN 9 6 - 20 mg/dL [facility] CREATININE 0.72 0.51 - 0.95 mg/dL [facility] GLUCOSE 107(H) 65 - 99 mg/dL [facility] TOTAL PROTEIN 7.2 6.3 - 8.6 g/dL [facility] ALBUMIN 4.3 3.4 - 4.8 g/dL [facility] BILIRUBIN TOTAL 0.4 0.2 - 1.0 mg/dL [facility] ALKALINE PHOSPHATASE 53 35 - 104 U/L [facility] AST 15 12 - 32 U/L [facility] ALT 19 0 - 31 U/L [facility] GFR, >60 >=60 mL/min/1. 7 sq meter [facility] GFR >60 >=60 mL/min/1. 7 sq meter [facility] Comment: Modification of Diet in Renal Disease (MDRD) study formula. Estimated GFR rate interpretative information for both Americans and non- Americans is available on the [facility] Intranet at: [email or web address] Select: Lab Policies and Procedures Select: Reference Ranges - GFR Blood specimen (specimen) 05/25/2010 6:10 PM CDT 05/25/2010 6:14 PM CDT Jasper Howard DO CHEMISTRY ORDERABLES [facility] CLIA# [id number] [address] [place] [address] * (ABNORMAL) CBC WITH DIFFERENTIAL (05/25/2010 6:10 PM CDT) WBC 10.1(H) 4.0 - 9.8 K/uL [facility] RBC 5.01(H) 3.90 - 4.90 M/uL [facility] HEMOGLOBIN 14.3 11.8 - 14.8 g/dL [facility] HEMATOCRIT 40.3 35.5 - 44.0 % [facility] MCV 80.4(L) 82.0 - 99.0 fL [facility] MCH 28.5 27.2 - 32.6 pg [facility] MCHC 35.5 31.5 - 35.5 % [facility] PLATELETS 319 140 - 350 K/uL [facility] MPV 10.6 9.3 - 12.4 fL [facility] RDW 13.2 11.5 - 14.5 % [facility] RDW-STDEV 38.5 37.1 - 48.7 fL [facility] NEUTROPHILS 53 45 - 70 % [facility] LYMPHOCYTES 38 16 - 45 % [facility] MONOCYTES 6 3 - 13 % [facility] EOSINOPHILS 2 0 - 7 % [facility] BASOPHILS 1 0 - 2 % [facility] NEUTROPHIL ABSOLUTE 5.32 1.90 - 7.00 K/uL [facility] LYMPHOCYTE ABSOLUTE 3.87 0.70 - 4.50 K/uL [facility] MONOCYTE ABSOLUTE 0.60 0.10 - 1.30 K/uL [facility] EOSINOPHIL ABSOLUTE 0.22 0.00 - 0.70 K/uL [facility] BASOPHILS ABSOLUTE 0.06 0.00 - 0.20 K/uL [facility] Blood specimen (specimen) 05/25/2010 6:10 PM CDT 05/25/2010 6:14 PM CDT Jasper Howard DO HEMATOLOGY ORDERABLE S [facility] CLIA# [id number] [address] [place] [address] documented in this encounter Visit Diagnoses Diagnosis [...] RN) documented in this encounter Care Teams Cager Operator Relationship Specialty Start Date End Date Dionte Vega MD [address] [place] [address] PCP - General Family Practice 05/25/10 documented as of this encounter
--- OUTSIDE RECORDS SUMMARY | 2024-09-16 10:57 | XMS_ITS | Encounter Summary ---
Author Organization [facility] Address [address] Attn: Epic Prelude ADT [place] [address] Care Team Providers Care Locomotive Mechanic Name Role Phone Dionte Vega MD Primary Care Provider [phone] Encounter Details Date Type Department Care Team [...] COVID-19? Unable to assess 10/23/2020 10:18 AM OVERNIGHT CAREGIVER documented as of this encounter Plan of Treatment Not on file documented as of this encounter Visit Diagnoses Not on filedocumented in this encounter Care Teams Locomotive Mechanic Relationship Specialty Start Date End Date Dionte Vega MD [address] [place] [address] PCP - General Family Practice 05/25/10 documented as of this encounter
--- OUTSIDE RECORDS SUMMARY | 2024-09-16 10:57 | XMS_ITS | Encounter Summary ---
Author Organization [facility] Address 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 Encounter Details Date Type Department Care Team (Late st Contact Info) Description 08/13/2019 2:45 PM PRESCHOOL TEACHER ASSISTANT Office Visit [facility] BREAST SURGERY - [place] [facility] [address] [place] [address] [place] [address] [place] [address] Mastodynia (Primary Dx); Duct ectasia, left; Morbid obesity with body mass index of [...] Sign Reading Time Taken Comments Blood Pressure 140/80 08/13/2019 2:59 PM PRESCHOOL TEACHER ASSISTANT Pulse - - Temperature - - Respiratory Rate - - Oxygen Saturation - - Inhaled Oxygen Concentration - - Weight 117.9 kg (260 lb) 08/13/2019 2:59 PM PRESCHOOL TEACHER ASSISTANT Height 162.6 cm (5' 4 ) 08/13/2019 2:59 PM PRESCHOOL TEACHER ASSISTANT Body Mass Index 44.63 08/13/2019 2:59 PM PRESCHOOL TEACHER ASSISTANT documented in this encounter Progress Notes * Erika Martinez MD - 08/13/2019 3:01 PM CST [facility] Breast Surgical Oncology New Patient Evaluation PATIENT: Araceli Cedeno : 1985 DATE: 08/13/2019 CHIEF COMPLAINT: left breast pain Chief Complaint Patient presents with ??? 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 premenopausal female referred by Dr. Vega for evaluation and recommendations regarding acute onset of left breast pain. She presents today urgently with her 2 young children after calling our office today, when she learned Dr. Torrez was no longer seeing patients. She was in her usual state of health, when she experienced acute onset of diffuse left breast pain that has progressively worsened over the past 4 days, after she started her menstrual cycle. She was seen and treated by Dr. Torrez, breast surgeon at [facility] in [place] on 08/09/19 for follow-up after [...] episode of nipple discharge 2 days ago, whichshe noticed on her nightgown after sleeping without a bra. She is using ice compresses, tylenol, but the only thing that helps relieve the pain is sleeping. 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 OB History: , age of first live 30; age of menarche 9; age of menopause n/a - premenopausal; use of OCP x 3 years, no HRT; previous left breast core biopsy 07/2019 ([facility]); no radiation exposure; Paternal grandma with breast cancer at 60. Family history with no ovarian, pancreatic, or colon cancer. Bra size: 44D; [employer] - no. PMH: Past Medical History: Diagnosis [...] file Gets together: Not on file Attends protestant service: Not on file Active member of [...] 5' 4 (1.626 m) and weight is 117.9 kg (260 lb). Her blood pressure is 140/80 (abnormal). General: well-developed, well-nourished, no acute distress HEENT: normocephalic/atraumatic. Extra-occular movements are intact. Sclera anicteric. Neck is supple without masses. No thyroid nodules. No lymphadenopathy. Cardiovascular: Regular rate and rhythm. No palpable thrill. 2+ radial pulses. Lungs - clear to auscultation bilaterally. No wheezes. Breasts: Bilateral breasts were [...] Bilateral diagnostic mammogram, bilateral complete ultrasound - ([facility], [place])- extremely dense. Probably benign left [...] ectasia, no evidence of malignancy. (Dr. Torrez, [place], [place]). ASSESSMENT AND PLAN: 34 y.o. 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 No evidence malignancy or benign abnormality. Benign breast pain is a common condition affecting 50% of women at some point in their lifetime. It is usually associated with fibrocystic changes to thebreast, bra fit, and hormonal fluctuations. I recommend she have a bra fitting, wear a supportive bra, sleep in a sports bra, heat/ice to the area, 64 oz of water daily, Vitamin E supplements, and Evening Crete Oil. I emphasized that it can take 6-8 weeks after making any of the above changes tonotice a difference clinically. She is recommended to have a clinical breast exam yearly and begin screening mammograms at age 40. She is to call or return to clinic with any questions or concerns. 45 minutes were spent in discussion with the patient. I answered her questions to her satisfaction. She was instructed to call our clinic with any acute breast changes, concerns, or questions. I would like to thank for asking me to consult on this patient. Erika Martinez MD Breast Surgical Oncology [facility] cc: Dionte Vega MD CHOOL TEACHER ASSISTANT documented in this encounter Plan of Treatment Not on file documented as of this encounter Visit Diagnoses Diagnosis Mastodynia- Primary Duct ectasia, left Morbid obesity with body mass index of 40.0-49.9 documented in this encounter Care Teams Machinist Instructor Relationship Specialty Start Date End Date Dionte Vega MD [address] [place] [address] PCP - General Family Practice 05/25/10 documented as of this encounter
--- OUTSIDE RECORDS SUMMARY | 2024-09-16 10:57 | XMS_ITS | Encounter Summary ---
Author Organization [facility] Address [address] Attn: Epic Prelude ADT [place] [address] Care Team Providers Care System Support Technician Name Role Phone Dionte Vega MD Primary Care Provider [phone] Encounter Details Date Type Department Care Team [...] COVID-19? No / Unsure 11/15/2020 3:12 PM FOREIGN EXCHANGE STUDENT COORDINATOR documented as of this encounter Plan of Treatment Not on file documented as of this encounter Visit Diagnoses Not on filedocumented in this encounter Care Teams System Support Technician Relationship Specialty Start Date End Date Dionte Vega MD [address] [place] [address] PCP - General Family Practice 05/25/10 documented as of this encounter
--- OUTSIDE RECORDS SUMMARY | 2024-09-16 10:57 | XMS_ITS | Encounter Summary ---
Author Organization [facility] Address [address] Attn: Epic Prelude ADT [place] [address] Care Team Providers Care High School Admissions Representative Name Role Phone Dionte Vega MD Primary Care Provider [phone] Encounter Details Date Type Department Care Team [...] on filedocumented in this encounter Care Teams High School Admissions Representative Relationship Specialty Start Date End Date Dionte Vega MD [address] [place] [address] PCP - General Family Practice 05/25/10 documented as of this encounter
--- OUTSIDE RECORDS SUMMARY | 2024-09-16 10:57 | XMS_ITS | Continuity of Care Document ---
Author Organization [employer] Address [address] [facility] [address] [place] [address] Phone Care Team Providers Care Automotive Brake Specialist Name Role Phone Nathalia Arndt PTA Unavailable Unavailable Procedures Procedure Date Therapeutic Activities Neuromuscular Re-Ed Therapeutic Exercise Therapeutic Activities Neuromuscular Re-Ed Therapeutic Exercise Therapeutic Activities Neuromuscular Re-Ed Therapeutic Exercise Therapeutic Activities Neuromuscular Re-Ed Therapeutic Exercise Progress Note Therapeutic Activities Neuromuscular Re-Ed Therapeutic Exercise Therapeutic Activities Therapeutic Exercise Neuromuscular Re-Ed Therapeutic [...] Activities Neuromuscular Re-Ed Therapeutic Exercise Therapeutic Activities Therapeutic Exercise Neuromuscular Re-Ed Therapeutic Activities Neuromuscular Re-Ed Therapeutic Exercise Therapeutic Activities Neuromuscular Re-Ed Therapeutic Exercise Therapeutic Activities Neuromuscular Re-Ed Therapeutic Exercise Manual Therapy Progress Note Therapeutic Activities Neuromuscular Re-Ed Therapeutic Exercise Therapeutic Activities Neuromuscular Re-Ed Therapeutic Exercise Manual Therapy Therapeutic Activities Neuromuscular Re-Ed Therapeutic Exercise Manual Therapy Therapeutic Activities Therapeutic Exercise Neuromuscular Re-Ed Manual Therapy Durable medical equipment ca Therapeutic Activities Neuromuscular Re-Ed Manual Therapy Therapeutic [...] Diagnoses Date Provider Providers Copied on Encounter [facility] [address], [id number], tel:[phone] [place] No Information Hair Sloan. . Referring Provider: Thomas Patel Jr [address], [place], [address]. tel:[phone] [place] [address], [id number], tel:[phone] [place] No Information Frank Marie. . Referring Provider: Thomas Patel Jr [address], [place], [address]. tel:[phone] [facility] [address], [id number], tel:[phone] [place] No Information Ponchos Nathalia. . Referring Provider: Thomas Patel Jr [address], [place], [address]. tel:[phone] [facility] [address], [id number], tel:[phone] [place] No Information Komis Nathalia. . Referring Provider: Thomas Patel Jr, [address], [place], [address]. tel:[phone] [facility] [address], [place], [place], [id number], tel:[phone] [place] No Information [place] Cynthia. . Referring Provider: Thomas Patel Jr, [address], [place], [address]. tel:[phone] [facility] [address], [place], [place], [id number], tel:[phone] [place] No Information Frank Cynthia. . Referring Provider: Thomas Patel Jr [address], [place], [address]. tel:[phone] [place] [address] [address], [place], [place], [id number], tel:[phone] [place] No Information Komis Nathalia. . Referring Provider: Thomas Patel Jr, [address], [place], [address]. tel:[phone] [facility] [address], [place], [place], [id number], tel:[phone] [place] No Information [place] Khoi. . Referring Provider: Thomas Patel Jr [address], [place], [address]. tel:[phone] [facility] [address], [place], [place], [id number], tel:[phone] [place] No Information Komis Nathalia. . Referring Provider: Thomas Patel Jr [address], [place], [address]. tel:[phone] [facility], [place], [place], [id number], tel:[phone] [place] No Information [place] Cynthia. . Referring Provider: Thomas Patel Jr, [address], [place], [address]. tel:[phone] [place] [address] [address], [place], [place], [id number], tel:[phone] [place] No Information [place] Cynthia. . Referring Provider: Thomas Patel Jr, [address], [place], [address]. tel:[phone] [place] [address] [address], [place], [place], [id number], tel:[phone] [place] No Information Frank Cynthia. . Referring Provider: Thomas Patel Jr, [address], [place], [address]. tel:[phone] [place] [address] [address], [place], [place], [id number], tel:[phone] [place] No Information Komis Nathalia. . Referring Provider: Thomas Patel Jr, [address], [place], [address]. tel:[phone] [place] [address] [address], [place], [place], [id number], [place] tel:[phone] [place] No Information Komis Nathalia. . Referring Provider: Thomas Patel Jr, [address], [place], [address]. tel:[phone] [facility], [place], [place], [id number], tel:[phone] [place] No Information Frank Cynthia. . Referring Provider: Thomas Patel Jr, [address], [place], [address]. tel:[phone] [facility] [address] [facility], [place], [place], [id number], tel:[phone] [place] No Information Komis Nathalia. . Referring Provider: Thomas Patel Jr, [address], [place], [address]. tel:[phone] [facility] [address], [place], [place], [id number], [place] tel:[phone] [place] No Information Komis Nathalia. . Referring Provider: Thomas Patel Jr, [address], [place], [address]. tel:[phone] [place] [address] [address] [facility] [address], [place], [place], [id number], tel:[phone] [place] No Information Frank Cynthia. . Referring Provider: Thomas Patel Jr, [address], [place], [address]. tel:[phone] [place] [address] [facility], [place], [place], [id number], tel:[phone] [place] No Information [place] Cynthia. . Referring Provider: Thomas Patel Jr, [address], [place], [address]. tel:[phone] [facility] [address] [facility], [place], [place], [id number], tel:[phone] [place] No Information [place] Cynthia. . Referring Provider: Thomas Patel Jr, [address], [place], [address]. tel:[phone] [place], [place] [address] [address], [place], [place], [id number], tel:[phone] [place] No Information Frank Cynthia. . Referring Provider: Thomas Patel Jr, [address], [place], [address]. tel:[phone] [place] [address] [address], [place], [place], [id number], tel:[phone] [place] No Information Frank Cynthia. . Referring Provider: Thomas Patel Jr, [address], [place], [address]. tel:[phone] [place] [address] [address] [facility], [place], [place], [id number], tel:[phone] [place] No Information Komis Nathalia. . Referring Provider: Thomas Patel Jr, [address], [place], [address]. tel:[phone] [place] [address] [address] [facility], [place], [place], [id number], tel:[phone] [place] No Information Frank Cynthia. . Referring Provider: Thomas Patel Jr, [address], [place], [address]. tel:[phone] [place] [address] [address], [place], [place], [address], tel:[phone] [place] No Information Komis Nathalia. . Referring Provider: Thomas Patel Jr, [address], [place], [address]. tel:[phone] [place] [address] [address], [place], [place], [id number], tel:[phone] [place] No Information [place] Cynthia. . Referring Provider: Thomas Patel Jr, [address], [place], [address]. tel:[phone] [facility] [address] [facility], [place], [place], [id number], tel:[phone] [place] No Information Komis Nathalia. . Referring Provider: Thomas Patel Jr, [address], [place], [address]. tel:[phone] [facility] [address], [place], [place], [id number], [place] tel:[phone] [place] No Information Komis Nathalia. . Referring Provider: Thomas Patel Jr [address], [place], [address]. tel:[phone] [place] [address] [address] [facility], [place], [place], [id number], tel:[phone] [place] No Information Frank Cynthia. . Referring Provider: Thomas Patel Jr [address], [place], [address]. tel:[phone] [place] [address] [address] [facility], [place], [place], [id number], tel:[phone] [place] No Information Frank Cynthia. . Referring Provider: Thomas Patel Jr, [address], [place], [address]. tel:[phone] [facility] [address] [facility], [place], [place], [id number], [place] tel:[phone] [place] No Information Komis Nathalia. . Referring Provider: Thomas Patel Jr [address], [place], [address]. tel:[phone] [facility] [address], [id number], tel:[phone] [place] No Information Frank Marie. . Referring Provider: Thomas Patel Jr [address], [place], [address]. tel:[phone] [facility] [address], [id number], tel:[phone] [place] No Information Komis Nathalia. . Referring Provider: Thomas Patel Jr [address], [place], [address]. tel:[phone] [facility] [address], [id number], tel:[phone] [place] No Information Komis Nathalia. . Referring Provider: Thomas Patel Jr [address], [place], [address]. tel:[phone], [id number], tel:[phone] [place] No Information Frank Marie. . Referring Provider: Thomas Patel Jr [address], [place], [address]. tel:[phone] Family History Family Member Type Diagnosis Age At Onset No Information Payers Payer name Insurance type Covered green party ID Nicolcm zariaanalilia(s) [facility] CI [id number] Social History Type Description Quantity Date Captured [...]
--- OUTSIDE RECORDS SUMMARY | 2024-09-16 10:57 | XMS_ITS | Encounter Summary ---
Author Organization [facility] Address [address] [place] [address] Care Team Providers Care Hiv Cts Specialist Name Role Phone Dionte Vega MD Primary Care Provider [phone] Reason for Referral * Radiology Services (Routine) - Closed Specialty Diagnoses / Procedures [facility] Referred To Contact Diagnoses Abnormality of right breast on screening mammogram Mass of upper inner quadrant of right breast Morbid obesity with body mass index of 40.0-49.9 Mastodynia Procedures MAMMO BRE[place] [address] [place] [address] [facility] Test Scheduling [address] [address] Referral ID Status Reason Start Date Expiration Date V isits Requested Visits Authorized [id number] Closed [facility] CTS 12/12/2020 01/10/2021 1 1 Reason for Visit * Reason Comments Breast Mass right Encounter Details Date Type Department Care Team (Late st Contact Info) Description 12/12/2020 9:45 AM CDT Office Visit [facility] BREAST SURGERY - [place] [facility] [address] [place] [address] [place] [address] [place] [id number] Mass of upper inner quadrant of right [...] treated by Dr. Torrez, breast surgeon at [facility] in [place] on 08/09/19 for follow-up after [...] sleeping. 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 Bra size: 44D; Ashkenazi Restoration - no. PMH: Past Medical History: Diagnosis [...] OXALATE ORAL Take by mouth. ??? OM [id number] ORAL Take by mouth. ??? evening primrose [...] file Gets together: Not on file Attends [employer] service: Not on file Active member of [...] Bilateral diagnostic mammogram, bilateral complete ultrasound - ([place], [place])- extremely dense. Probably benign left breast [...] ectasia, no evidence of malignancy. (Dr. Torrez, [place], [place]). ----- 11/08/2020-bilateral diagnostic 3D mammogram, Bilateral ultrasound ([place], [place])-heterogeneously dense. Biopsy marker on the left [...] water daily, Vitamin E supplements, and Evening Welcome Oil. I emphasized that it can take [...] data. Erika Martinez MD Breast Surgical Oncology [facility] cc: Dionte Vega MD documented in [...] Mastodynia documented in this encounter Care Teams Hiv Cts Specialist Relationship Specialty Start Date End Date Dionte Vega MD [address] [place] [address] PCP - General Family Practice 05/25/10 documented as of this encounter
--- OUTSIDE RECORDS SUMMARY | 2024-09-16 10:57 | XMS_ITS | Encounter Summary ---
Author Organization [facility] [employer] [facility] Address [address] [place] [address] Care Team Providers Care Photostatic Copy Maker Name Role Phone Dionte Vega MD Primary Care Provider [phone] Encounter Details Date Type Department Care Team (Late st Contact Info) Description 08/03/2019 Orders Only [facility] [address] [place] [address] Provider, Abstract NO ADDRESS ON FILE [...] on filedocumented in this encounter Care Teams Photostatic Copy Maker Relationship Specialty Start Date End Date Dionte Vega MD [address] [place] [address] PCP - General Family Practice 05/25/10 documented as of this encounter
--- OUTSIDE RECORDS SUMMARY | 2024-09-16 10:57 | XMS_ITS | Encounter Summary ---
Author Organization [facility] Address [address] [place] [address] Care Team Providers Care Information Technology Advisor Name Role Phone Dionte Vega MD Primary Care Provider [phone] Encounter Details Date Type Department Care Team (Latest Contact Info) Description 09/20/2020 11:20 AM MUTUAL FUND SALES AGENT - 09/20/2020 11:59 PM [facility] Hospital Encounter [facility] [address] [place] [address] [facility], External Provider [address] [place] [address] Discharge Disposition: Home or Self Care Social [...] PRIOR STUDY Routine 09/20/2020 11: 20 AM MUTUAL FUND SALES AGENT Follow up documented in this encounter Results * MAMMO PRIOR STUDY (09/20/2020 11:20 AM MUTUAL FUND SALES AGENT) Narrative 12/12/2020 11:19 AM CDT This exam was auto finalized to allow images to be scanned to PACS. External Provider [facility] DIAGNOSTIC IMAGI NG ORDERABLES documented in this encounter Visit Diagnoses Diagnosis Follow up documented in this encounter Care Teams Information Technology Advisor Relationship Specialty Start Date End Date Dionte Vega MD [address] [place] [place] [address] PCP - General Family Practice 05/25/10 documented as of this encounter
--- OUTSIDE RECORDS SUMMARY | 2024-09-16 10:57 | XMS_ITS | Encounter Summary ---
Author Organization [facility] Address [address] [place] [address] Care Team Providers Care Physician Coding Specialist Name Role Phone Dionte Vega MD Primary Care Provider [phone] Encounter Details Date Type Department Care Team (Latest Contact Info) Description 10/14/2017 11:20 AM PHOTORESIST CONTACT PRINTER - 10/14/2017 11:59 PM PHOTORESIST CONTACT PRINTER Hospital Encounter [facility] [address] [place] [address] [facility], External Provider [address] [place] [address] Discharge Disposition: Home or Self Care Social [...] PRIOR STUDY Routine 10/14/2017 11: 20 AM PHOTORESIST CONTACT PRINTER Follow up documented in this encounter Results * MAMMO PRIOR STUDY (10/14/2017 11:20 AM PHOTORESIST CONTACT PRINTER) Narrative 12/12/2020 11:19 AM CDT This exam was auto finalized to allow images to be scanned to PACS. External Provider [facility] DIAGNOSTIC IMAGI NG ORDERABLES documented in this encounter Visit Diagnoses Diagnosis Follow up documented in this encounter Care Teams Physician Coding Specialist Relationship Specialty Start Date End Date Dionte Vega MD [address] [place] [address] PCP - General Family Practice 05/25/10 documented as of this encounter
--- OUTSIDE RECORDS SUMMARY | 2024-09-16 10:57 | XMS_ITS | Encounter Summary ---
Author Organization [facility] Address [address] [place] [address] Care Team Providers Care Sales Representative Meats Name Role Phone Dionte Vega MD Primary Care Provider [phone] Encounter Details Date Type Department Care Team (Latest Contact Info) Description 09/20/2020 11:25 AM CASTER OPERATOR - 09/20/2020 11:59 PM [facility] Hospital Encounter [facility] [address] [place] [address] [facility], External Provider [address] [place] [address] Discharge Disposition: Home or Self Care Social [...] PRIOR STUDY Routine 09/20/2020 11: 25 AM CASTER OPERATOR Follow up documented in this encounter Results * MAMMO PRIOR STUDY (09/20/2020 11:25 AM CASTER OPERATOR) Narrative 12/12/2020 11:20 AM CDT This exam was auto finalized to allow images to be scanned to PACS. External Provider [facility] DIAGNOSTIC IMAGI NG ORDERABLES documented in this encounter Visit Diagnoses Diagnosis Follow up documented in this encounter Care Teams Sales Representative Meats Relationship Specialty Start Date End Date Dionte Vega MD [address] [place] [address] PCP - General Family Practice 05/25/10 documented as of this encounter
--- OUTSIDE RECORDS SUMMARY | 2024-09-16 10:57 | XMS_ITS | Encounter Summary ---
Author Organization [facility] Address [address] [facility] Attn: Epic Prelude ADT [address] [address] Care Team Providers Care Motor Vehicle Technician Name Role Phone Dionte Vega MD Primary Care Provider [phone] Encounter Details Date Type Department Care Team [...] on filedocumented in this encounter Care Teams Motor Vehicle Technician Relationship Specialty Start Date End Date Dionte Vega MD [address] [place] [address] PCP - General Family Practice 05/25/10 documented as of this encounter
--- OUTSIDE RECORDS SUMMARY | 2024-09-16 10:57 | XMS_ITS | Encounter Summary ---
Author Organization [facility] Address 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, right Procedures KS EXCISE BREAST LES W XRAY MARKER KS PERQ BREAST LOC DEVICE PLACEMT 1ST LESIO US IMAG KS PERQ DEVICE PLACEMT BREAST LOC 1ST LES W GUIDNCE RIGHT BREAST EXCISIONAL BIOPSY WITH NEEDLE LOCALIZATION [facility] [address] [place] [address] Referral ID Status Reason Start Date Expiration Date Visits Re quested Visits Authorized [id number] 1 1 Encounter Details Date Type Department Care Team (Latest Contact Info) Description 02/09/2021 7:35 AM CDT - 02/09/2021 4:54 PM CDT Hospital Encounter [facility] [address] [place] [address] [place] [address] [facility] [address] [place] [address] Radial scar of right breast [...] Lam RN - 02/09/2021 3:09 PM CDT [facility] BREAST SURGERY [address] [place] [address] Post operative instructions: Activity: _x__Walk around every [...] OK to supplementfor break through pain with [place]/ Hydrocodone 5mg / Acetaminophen 500mg. Do not [...] call this number to be connected to theZikBit service. Nichole Mackey MD Breast Surgical Oncology [...] or come to the Emergency Room at [facility] ([phone]) or the nearest Emergency Room. In an [...] ESCITALOPRAM OXALATE ORAL Take by mouth. OM 7-[id number]-[id number]-RZOCJ ST ORAL Take by mouth. evening primrose [...] treated by Dr. Torrez, breast surgeon at [facility] in [place] on 08/09/19 for follow-up after a left [...] is sleeping. 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 Bra size: 44D; Ashkenazi Mandaeism - no. PMH: Past Medical History: Diagnosis [...] Gatherings with Friends and Family: ??? Attends Yazidi Services: ??? Active Member of Clubs or [...] ultrasound - ([facility], [place])- extremely dense. Probably benign left breast mass at 6:00, 3 cm from the nipple, irregular shapedcomplex cystic mass measures 1.0 x 0.6 x 0.4 cm, likely a complicated cyst or cluster of microcysts. BIRADS 3 - probably benign findings. 11/08/2020-bilateral diagnostic 3D mammogram, Bilateral ultrasound ([place], [place])-heterogeneously dense. Biopsy marker on the left [...] ectasia, no evidence of malignancy. (Dr. Torrez, [place], [place]). ----- 01/05/2021 - Right breast US [...] data. Nichole Mackey MD Breast Surgical Oncology [facility] cc: Dionte Vega MD documented in this encounter OR Notes * Operative Report - Nichole Mackey MD - 02/09/2021 2:14 PM CDT [facility] OPERATIVE REPORT - [id number] Date of Procedure: 02/09/2021 Name: Araceli Cedeno [...] oncoplastic fashion with local tissue rearrangement to fryer line helper in closing the space, followed by skin closure with interrupted 3-0 Vicryl sutures and a running subcuticular 4-0 Biosyn stitch. Skin glue was applied. Needle and sponge counts were correct x 2. DISPOSITION: Overall the patient tolerated the procedure well and was sent to the recovery room in stable condition. [id number] by NICHOLE MACKEY MD, 02/09/2021 14:13 CDT (Approved) Created in [facility] documented in this encounter Miscellaneous Notes * [...] CASE REPORT Surgical Pathology Report ? Case: [id number] ? Authorizing Provider: ??Nichole Mackey MD ??Collected: ? 02/09/2021 01:38 PM ? Ordering Location: ? [facility] ?Received: ?02/12/2021 06:16 AM ? Operating Room ? Pathologist: ? Jed Contreras MD ? Specimen: ?Breast, right, Upper inner quadrant, short superior, long lateral ? 02/14/2021 9:11 AM [facility] FINAL DIAGNOSIS Breast, right, upper inner quadrant, excisional biopsy with needle localization: - 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 - Margins negative; 4 mm from posterior margin. - Sclerosing adenosis. - Fibrocystic changes and lactational change. - Prior biopsy site ([id number]). 02/14/2021 9:11 AM [facility] S DESCRIPTION The specimen is received [...] other palpable lesions or calcifications are identified. Oil Tester sections are submitted as follows: A1 and A2-perpendicular sections through superior resection margin, or level 1; A3 and A4-level 3; A5 through A7-level 5; A8 through W35-cmtol 6; A11 through Y46-wydwp 7; A14 and T62-eugsl 9; A16 and B15-xumll 11; A18 and E91-djerh 13; A20 and O79-xcncmqxyivlkc sections through inferior resection margin, or level 15. [facility] 02/14/2021 9:11 AM [facility] LABORATORY SERVICES [facility] MICROSCOPIC DESCRIPTION The slides are labeled [id number] and Araceli Cedeno. The right breast upper [...] the posterior margin. 02/14/2021 9:11 AM CDT [facility] OPERATIVE PROCEDURE BREAST BIOPSY 02/14/2021 9:11 AM CDT [facility] CLINICAL INFORMATION Radial scar of right breast [N64.89] Intraductal papilloma of breast, right [D24.1] N64.89-Radial scar of right breast D24.1-Intraductal papilloma of breast, right 02/14/2021 9:11 AM CDT [facility] COMMENT Special stain and/or immunohistochemical results are interpreted with controls that demonstrate appropriate staining reactions. Note on use of immunocytochemistry reagents: This test was developed and its performance characteristics determined by [facility], Department of Laboratory Medicine. It has [...] part or completely in the following laboratories: [facility], CLIA #[id number] [facility] [place] [address] [facility] #[id number] [address] [place] [address] [facility], CLIA #[id number] [address] [place] [address] 02/14/2021 9:11 AM CDT [facility] Tissue RIGHT BREAST STRUCTURE / Unknown Collection / Unknown 02/09/2021 1:38 PM CDT 02/12/2021 6:16 AM CDT Nichole Mackey MD PATHOLOGY/CYTOLO GY ORDERABLES [facility] CLIA# [id number] [address] [place] [address] * POC , URINE (02/09/2021 8:05 AM CDT) HCG QUAL URINE Negative Negative 02/09/2021 8:05 AM CDT [facility]OR[facility] EXPEDITER SERVICE ORDER NAME JUDIE ALTMAN 02/09/2021 8:05 AM CDT [facility] Urine 02/09/2021 8:05 AM CDT 02/09/2021 8:29 AM CDT Nichole Mackey MD POINT OF CARE TE STING [facility] [id number] [address] [place] [address] * 2019 NOVEL CORONAVIRUS (COVID-19) PCR DETECTION (02/02/2021 2:09 PM CDT) [facility] COVID-19 PCR NOT DETECTED Not Detected 02/04/20 12:30 AM CDT [facility] PERFORMING LAB [facility] 02/03/2021 12:30 AM CDT [facility] [employer] [facility] Upper Respiratory ENTIRE NASOPHARYNX / Unknown Collection / Unknown 02/02/2021 2:09 PM CDT 02/02/2021 7:18 PM CDT Narrative [facility] - 02/03/2021 12:30 AM CDT This [...] Mackey MD MICROBIOLOGY - G ENERAL ORDERABLES [facility] [employer] [facility]# [id number] [address] [place] [address] documented in this encounter Visit Diagnoses Diagnosis [...] Until Fri02/09/21 at 1854, Routine 0814 ([facility] - Prov ider: Gabi Tsai RN) lactated [...] procedure) documented in this encounter Care Teams Furnace Loader Relationship Specialty Start Date End Date Dionte Vega MD [address] [place] [address] PCP - General Family Practice 05/25/10 documented as of this encounter
--- OUTSIDE RECORDS SUMMARY | 2024-09-16 10:57 | XMS_ITS | Encounter Summary ---
Author Organization [facility] [employer] [facility] Address [address] [place] [address] Care Team Providers Care Broke Man Name Role Phone Dionte Vega MD Primary Care Provider [phone] Reason for Visit * Reason Comments Follow Up Bx FU Encounter Details Date Type Department Care Team (Late st Contact Info) Description 08/09/2019 9:30 AM SOIL SCIENCE TECHNICAL OFFICER Office Visit [facility] Breast Surgery [place] [address] [address] Kelly Torrez DO NO ADDRESS [...] Comments Blood Pressure 126/86 08/09/2019 9:16 AM SOIL SCIENCE TECHNICAL OFFICER Pulse 88 08/09/2019 9:16 AM SOIL SCIENCE TECHNICAL OFFICER Temperature 37 ??C (98.6 ??F) 08/09/2019 9:16 AM SOIL SCIENCE TECHNICAL OFFICER Respiratory Rate - - Oxygen Saturation 97% 08/09/2019 9:16 AM SOIL SCIENCE TECHNICAL OFFICER Inhaled Oxygen Concentration - - Weight 117.4 kg (258 lb 14.4 oz) 08/09/2019 9:16 AM SOIL SCIENCE TECHNICAL OFFICER Height 162.6 cm (5' 4 ) 08/09/2019 9:16 AM SOIL SCIENCE TECHNICAL OFFICER Body Mass Index 44.44 08/09/2019 9:16 AM SOIL SCIENCE TECHNICAL OFFICER documented in this encounter Progress Notes * [...] file Gets together: Not on file Attends uatsdin service: Not on file Active member of [...] recent imaging: Bilateral ultrasound was done at [facility] on 04/15/2019. The finding identified is [...] can resume clinical breast exams with her multigrapher. She will not need a mammogram until [...] questions or major inaccuracies, please contact me. SCIENCE TECHNICAL OFFICER documented in this encounter Plan of Treatment Not on file documented as of this encounter Visit Diagnoses Diagnosis Duct ectasia, left- Primary documented in this encounter Care Teams Broke Man Relationship Specialty Start Date End Date Dionte Vega MD [address] [place] [address] PCP - General Family Practice 05/25/10 documented as of this encounter
--- OUTSIDE RECORDS SUMMARY | 2024-09-16 10:57 | XMS_ITS | Encounter Summary ---
Author Organization [facility] [employer] [facility] Address [address] [place] [address] Care Team Providers Care Field Supervisor Seed Production Name Role Phone Dionte Vega MD Primary Care Provider [phone] Encounter Details Date Type Department Care Team (Late st Contact Info) Description 08/09/2019 Orders Only [facility] Breast Surgery [place] [address] Lam [address] [place] [address] Provider, Abstract NO ADDRESS ON FILE [...] on filedocumented in this encounter Care Teams Field Supervisor Seed Production Relationship Specialty Start Date End Date Dionte Vega MD [address] [place] [address] PCP - General Family Practice 05/25/10 documented as of this encounter
--- OUTSIDE RECORDS SUMMARY | 2024-09-16 10:57 | XMS_ITS | Encounter Summary ---
Author Organization [facility] Address [address] [facility] Attn: Epic Prelude ADT [place] [address] Care Team Providers Care Dental Appliance Repairer Name Role Phone Dionte Vega MD Primary Care Provider [phone] Encounter Details Date Type Department Care Team [...] COVID-19? No / Unsure 11/21/2020 9:49 AM SUPERVISOR ENGINE REPAIR documented as of this encounter Plan of Treatment Not on file documented as of this encounter Visit Diagnoses Not on filedocumented in this encounter Care Teams Dental Appliance Repairer Relationship Specialty Start Date End Date Dionte Vega MD [address] [place] [address] PCP - General Family Practice 05/25/10 documented as of this encounter
--- OUTSIDE RECORDS SUMMARY | 2024-09-16 10:57 | XMS_ITS | Encounter Summary ---
Author Organization [facility] [employer] [facility] Address [address] [place] [address] Care Team Providers Care Private Investigator Name Role Phone Dionte Vega MD Primary Care Provider [phone] Encounter Details Date Type Department Care Team (Late st Contact Info) Description 07/05/2019 Orders Only [facility] Breast Surgery [place] [address] Lam [address] [place] [address] Provider, Abstract NO ADDRESS ON FILE [...] on filedocumented in this encounter Care Teams Private Investigator Relationship Specialty Start Date End Date Dionte Vega MD [address] [place] [address] PCP - General Family Practice 05/25/10 documented as of this encounter
--- OUTSIDE RECORDS SUMMARY | 2024-09-16 10:57 | XMS_ITS | Encounter Summary ---
Author Organization [facility] Address 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, right Procedures DC EXCISE BREAST LES W XRAY MARKER DC PERQ BREAST LOC DEVICE PLACEMT 1ST LESIO US IMAG DC PERQ DEVICE PLACEMT BREAST LOC 1ST LES W GUIDNCE RIGHT BREAST EXCISIONAL BIOPSY WITH NEEDLE LOCALIZATION [facility] Or [address] [place] [address] Referral ID Status Reason Start Date Expiration Date Visits Re quested Visits Authorized [id number] 1 1 Encounter Details Date Type Department Care Team (Late st Contact Info) Description 02/09/2021 10:45 AM CDT - 02/09/2021 12:00 PM CDT Surgery [facility] Operating Room [address] [place] [address] [place] [address] [facility] [address] [place] [address] RIGHT BREAST EXCISIONAL BIOPSY WITH [...] Lam RN - 02/09/2021 3:09 PM CDT [facility] BREAST SURGERY [id number] [place] [address] Post operative instructions: Activity: _x__Walk around every [...] OK to supplementfor break through pain with [place]/ Hydrocodone 5mg / Acetaminophen 500mg. Do not [...] PLEASE EMAIL IN 2 DAYS VIA MY [email or web address]: - TO LET ME KNOW HOW YOU ARE DOING - TO LET ME KNOW IF YOU NEED REFILLS - ANY PROBLEMS OR QUESTIONS If you have any questions, please call the office at between the hours of 9AM and 4PMFriday through Friday. After hours for emergencies, you may call this number to be connected to theSlacker service. Nichole Mackey MD Breast Surgical Oncology [...] or come to the Emergency Room at [facility] ([phone]) or the nearest Emergency Room. In an [...] ESCITALOPRAM OXALATE ORAL Take by mouth. OM 6-[id number]-[id number]-C7-RAMAU ST ORAL Take by mouth. evening primrose [...] treated by Dr. Torrez, breast surgeon at [facility] in [place] on 08/09/19 for follow-up after a left [...] sleeping. 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 Bra size: 44D; Ashkenazi Mormon - no. PMH: Past Medical History: Diagnosis [...] Bilateral diagnostic mammogram, bilateral complete ultrasound - ([place], [place])- extremely dense. Probably benign left breast mass at 6:00, 3 cm from the nipple, irregular shapedcomplex cystic mass measures 1.0 x 0.6 x 0.4 cm, likely a complicated cyst or cluster of microcysts. BIRADS 3 - probably benign findings. 11/08/2020-bilateral diagnostic 3D mammogram, Bilateral ultrasound ([place], [place])-heterogeneously dense. Biopsy marker on the left [...] ectasia, no evidence of malignancy. (Dr. Torrez, [place], [place]). ----- 01/05/2021 - Right breast US [...] data. Nichole Mackey MD Breast Surgical Oncology [facility] cc: Dionte Vega MD documented in this encounter OR Notes * Operative Report - Nichole Mackey MD - 02/09/2021 2:14 PM CDT [facility] OPERATIVE REPORT - [id number] Date of Procedure: 02/09/2021 Name: Araceli Cedeno [...] Inner Quadrant ASSISTANTS: First Cabrera - KAYA AKYE ESTIMATED BLOOD LOSS: Minimal FINDINGS: Radiograph specimen [...] oncoplastic fashion with local tissue rearrangement to nutrition helper in closing the space, followed by skin closure with interrupted 3-0 Vicryl sutures and a running subcuticular 4-0 Biosyn stitch. Skin glue was applied. Needle and sponge counts were correct x 2. DISPOSITION: Overall the patient tolerated the procedure well and was sent to the recovery room in stable condition. [id number] by NICHOLE MACKEY MD, 02/09/2021 14:13 CDT (Approved) Created in [facility] Surgical [facility] documented in this encounter Miscellaneous [...] CASE REPORT Surgical Pathology Report ? Case: [id number] ? Authorizing Provider: ??Nichole Mackey MD ??Collected: ? 02/09/2021 01:38 PM ? Ordering Location: ? [facility] ?Received: ?02/12/2021 06:16 AM ? Operating Room ? Pathologist: ? Jed Contreras MD ? Specimen: ?Breast, right, Upper inner quadrant, short superior, long lateral ? 02/14/2021 9:11 AM CDT [facility] FINAL DIAGNOSIS Breast, right, upper inner quadrant, excisional biopsy with needle localization: - 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 - Margins negative; 4 mm from posterior margin. - Sclerosing adenosis. - Fibrocystic changes and lactational change. - Prior biopsy site ([id number]). 02/14/2021 9:11 AM CDT [facility] S DESCRIPTION The specimen is [...] other palpable lesions or calcifications are identified. Supervisor Wire Rope Fabrication sections are submitted as follows: A1 and A2-perpendicular sections through superior resection margin, or level 1; A3 and A4-level 3; A5 through A7-level 5; A8 through A36-ljqbb 6; A11 through L69-jfplj 7; A14 and A23-oimks 9; A16 and N57-fksml 11; A18 and J59-pmcta 13; A20 and B53-dbpenvkiutznp sections through inferior resection margin, or level 15. [facility] 02/14/2021 9:11 AM [facility] [employer] [facility] MICROSCOPIC DESCRIPTION The slides are labeled [id number] and Araceli Cedeno. The right breast upper [...] the posterior margin. 02/14/2021 9:11 AM CDT [facility] OPERATIVE PROCEDURE BREAST BIOPSY 02/14/2021 9:11 AM T [facility] CLINICAL INFORMATION Radial scar of right breast [N64.89] Intraductal papilloma of breast, right [D24.1] N64.89-Radial scar of right breast D24.1-Intraductal papilloma of breast, right 02/14/2021 9:11 AM CDT [facility] COMMENT Special stain and/or immunohistochemical results are interpreted with controls that demonstrate appropriate staining reactions. Note on use of immunocytochemistry reagents: This test was developed and its performance characteristics determined by [facility], Department of Laboratory Medicine. It has not [...] part or completely in the following laboratories: [facility], CLIA #[id number] [address] [place] [address] [facility], CLIA #[id number] [address] [place] [address] [facility] Michael/[place], [place] #[id number] [address] [place] [address] 02/14/2021 9:11 AM T [facility] Tissue RIGHT BREAST STRUCTURE / Unknown Collection / Unknown 02/09/2021 1:38 PM CDT 02/12/2021 6:16 AM CDT Nichole Mackey MD PATHOLOGY/CYTOLO GY ORDERABLES Performing Organization Address [facility]/State/ZIP Co de Phone Number [facility]# [id number] [address] [place] [address] * POC , URINE (02/09/2021 8:05 AM CDT) [facility] HCG QUAL URINE Negative Negative 02/09/2021 8:05 AM CDT [facility] [employer] [facility] RESEARCH INSTRUCTOR NAME POC JUDIE DUMONT 02/09/2021 8:05 AM CDT [facility] Urine 02/09/2021 8:05 AM CDT 02/09/2021 8:29 AM CDT Nichole Mackey MD POINT OF CARE TE STING Performing Organization Address [facility]/ZIP Co de Phone Number [facility]# [id number] [address] [place] [address] * 2019 NOVEL CORONAVIRUS (COVID-19) PCR DETECTION (02/02/2021 2:09 PM CDT) [facility] COVID-19 PCR NOT DETECTED Not Detected 02/04/20 12:30 AM CDT [facility] [employer] [facility] PERFORMING LAB [facility] 02/03/2021 12:30 AM CDT [facility] Upper Respiratory ENTIRE NASOPHARYNX / Unknown Collection / Unknown 02/02/2021 2:09 PM CDT 02/02/2021 7:18 PM CDT Narrative [facility] [employer] [facility] - 02/03/2021 12:30 AM CDT [...] Mackey MD MICROBIOLOGY - G ENERAL ORDERABLES [facility]# [id number] [address] [place] [address] documented in this encounter Visit Diagnoses Diagnosis [...] Until Fri02/09/21 at 1854, Routine 0814 ([facility] - Prov ider: Gabi Tsai RN) lactated [...] procedure) documented in this encounter Care Teams Car Pilot Relationship Specialty Start Date End Date Dionte eVga MD [address] [place] [address] PCP - General Family Practice 05/25/10 documented as of this encounter
--- OUTSIDE RECORDS SUMMARY | 2024-09-16 10:57 | XMS_ITS | Encounter Summary ---
Author Organization [facility] Address [address] [place] [address] Care Team Providers Care Wedger Machine Name Role Phone Dionte Vega MD Primary Care Provider [phone] Encounter Details Date Type Department Care Team (Latest Contact Info) Description 02/02/2021 2:09 PM CDT - 02/02/2021 11:59 PM CDT Hospital Encounter [facility] Pre Procedure Viral Testing [address] [address] Discharge Disposition: Home or Self Care Social [...] ESCITALOPRAM OXALATE ORAL Take by mouth. OM 1-RQT-QEV-U62-ZK-Z7-QGNIE ST ORAL Take by mouth. evening primrose [...] DETECTED Not Detected 02/04/20 12:30 AM CDT [facility] PERFORMING LAB [facility] 02/03/2021 12:30 AM CDT [facility] Upper Respiratory ENTIRE NASOPHARYNX / Unknown Collection / Unknown 02/02/2021 2:09 PM CDT 02/02/2021 7:18 PM CDT Narrative [facility] - 02/03/2021 12:30 AM CDT This test [...] Martinez MD MICROBIOLOGY - G ENERAL ORDERABLES [facility] LABORATORY [facility] CLIA# [id number] [address] [facility] [place] [place] [address] documented in this encounter Visit Diagnoses Diagnosis Preop testing Preoperative examination, unspecified documented in this encounter Care Teams Wedger Machine Relationship Specialty Start Date End Date Dionte Vega MD [address] [place] [address] PCP - General Family Practice 05/25/10 documented as of this encounter
--- OUTSIDE RECORDS SUMMARY | 2024-09-16 10:57 | XMS_ITS | Encounter Summary ---
Author Organization [facility] Address [address] [place] [address] Care Team Providers Care Vice President Industrial Relations Name Role Phone Dionte Vega MD Primary Care Provider [phone] Reason for Referral * Radiology Services (Routine) - Closed Specialty Diagnoses / Procedures Referred By Contac t Referred To Contact Diagnoses Radial scar of breast Intraductal papilloma of breast, right Procedures MAMMO US GUIDE NEEDLE PLACEMENT MAMMO NEEDLE [place] [address] [address] [address] Referral ID Status Reason Start Date Expiration Date Visits Re quested Visits Authorized [id number] Closed 01/16/2021 02/16/2022 1 1 * Radiology Services (Routine) - Closed Specialty Diagnoses / Procedures Referred By Jared bridges Referred To Contact Diagnoses Radial scar of breast Intraductal papilloma of breast, right Procedures MAMMO POST [place] [address] [address] [address] Referral ID Status Reason Start Date Expiration Date Visits Re quested Visits Authorized [id number] Closed 01/16/2021 02/16/2022 1 1 Encounter Details Date Type Department Care Team (Late st Contact Info) Description 01/16/2021 Prep for Surgery [facility] BREAST SURGERY - [place] CLRKSN [address] [place] [address] [place] [address] [place] [address] Radial scar of breast (Primary Dx); [...] right breast. Final pathology pending. DICTATION LOCATION: [facility] Narrative 02/09/2021 3:16 PM CDT ULTRASOUND [...] right breast. Final pathology pending. DICTATION LOCATION: [facility] 02/09/2021 3:16 PM CDT ULTRASOUND GUIDED [...] right breast. Final pathology pending. DICTATION LOCATION: [facility] Erika Martienz MD MAMMO ORDERABLES documented in this encounter Visit Diagnoses Diagnosis Radial scar of breast- Primary Scar condition and fibrosis of skin Intraductal papilloma of breast, right Radial scar of breast Scar condition and fibrosis of skin Intraductal papilloma of breast, right Radial scar of breast Scar condition and fibrosis of skin Intraductal papilloma of breast, right documented in this encounter Care Teams Vice President Industrial Relations Relationship Specialty Start Date End Date Dionte Vega MD [address] [place] [address] PCP - General Family Practice 05/25/10 documented as of this encounter
--- OUTSIDE RECORDS SUMMARY | 2024-09-16 10:57 | XMS_ITS | Encounter Summary ---
Author Organization [facility] Address [address] [facility] Attn: Epic Prelude ADT [place] [address] Care Team Providers Care Medical Professionals Name Role Phone Dionte Vega MD Primary Care Provider [phone] Encounter Details Date Type Department Care Team [...] on filedocumented in this encounter Care Teams Medical Professionals Relationship Specialty Start Date End Date Dionte Vega MD [address] [place] [address] PCP - General Family Practice 05/25/10 documented as of this encounter
--- OUTSIDE RECORDS SUMMARY | 2024-09-16 10:57 | XMS_ITS | Encounter Summary ---
Author Organization [facility] Address [address] [facility] Attn: Epic Prelude ADT [place] [address] Care Team Providers Care Shoe Laster Name Role Phone Dionte Vega MD Primary Care Provider [phone] Encounter Details Date Type Department Care Team [...] on filedocumented in this encounter Care Teams Shoe Laster Relationship Specialty Start Date End Date Dionte Vega MD [address] [place] [address] PCP - General Family Practice 05/25/10 documented as of this encounter
--- OUTSIDE RECORDS SUMMARY | 2024-09-16 10:57 | XMS_ITS | Encounter Summary ---
Author Organization [employer] Address [address] [place] [address] Care Team Providers Care Insurance Verification Specialist Name Role Phone Dionte Vega MD Primary Care Provider [phone] Reason for Referral * Radiology Services (Routine) - Closed Specialty Diagnoses / Procedures Referred By Jared bridges Referred To Contact Diagnoses Abnormality of right breast on screening mammogram Mass of upper inner quadrant of right breast Morbid obesity with body mass index of 40.0-49.9 Mastodynia Procedures MAMMO BREAST [place] [address] [address] [address] [facility] Test Scheduling [address] [address] Referral ID Status Reason Start Date Expiration Date V isits Requested Visits Authorized [id number] Closed [facility] 12/12/2020 01/10/2021 1 1 Reason for Visit * Auth/Cert Specialty Diagnoses / Procedures Referred By Jared bridges Referred To Contact Radiology [facility] [address] [place] [address] Referral ID Status Reason Start Date Expiration Date Visits Re quested Visits Authorized [id number] 1 1 Encounter Details Date Type Department Care Team (Latest Contact Info) Description 01/05/2021 8:55 AM CDT - 01/05/2021 11:59 PM CDT Hospital Encounter [facility] Christophe Molina [address] [address] [place] [address] [place] [address] [address] [place] [address] [...] ESCITALOPRAM OXALATE ORAL Take by mouth. OM [id number] ST ORAL Take by mouth. evening primrose [...] office of Dr. Erika Martinez. Araceli Esquivel OVEN TECHNICIAN,CBCN, Breast Health Nurse Navigator-[facility] documented in this encounter Plan of [...] CASE REPORT Surgical Pathology Report ? Case: [id number] ? Authorizing Provider: ??Zay Ramos MD ? Collected: ? 01/05/2021 10:01 AM ? Ordering Location: ? [facility] ?Received: ?01/08/2021 07:05 AM ? Christophe Molina ? Pathologist: ? Kathryn Avalos MD ? Specimen: ?Breast, right ? 01/09/2021 5:12 PM [facility] FINAL DIAGNOSIS Breast, right, ultrasound-guided core biopsy: - Radial scar/complex sclerosing lesion, associated with mild to moderate usual ductal hyperplasia, apocrine metaplasia and a rare small intraductal papilloma. 01/09/2021 5:12 PM [facility] S DESCRIPTION Received in one container labeled Araceli Do Wilian and right breast mass are 4 yellow-cordova fibrofatty tissue cores, measuring 1.3, 1.5, 1.6 and 1.4 cm in length x 0.3 cm in diameter. All are submitted in cassettes A1 and A2. [facility] 01/09/2021 5:12 PM [facility] MICROSCOPIC DESCRIPTION Received are slides labeled [id number], Araceli Cedeno. The submitted breast, right contains 4 breast cores, 3 of which sample portion of a radial scar/complex sclerosing lesion, measuring up to 6 mm in maximal core dimension and associated with fibrocystic changes, mild to moderate usual ductal hyperplasia, apocrine metaplasia and a small intraductal papilloma. There is no evidence of malignancy. 01/09/2021 5:12 PM [facility] OPERATIVE PROCEDURE US guided core biopsy right breast 01/09/2021 5:12 PM [facility] CLINICAL INFORMATION Right breast 1 oclock collected time 940 , formalin time 945 am, possible complex cyst right breast mass 01/09/2021 5:12 PM [facility] COMMENT Special stain and/or immunohistochemical results are interpreted with controls that demonstrate appropriate staining reactions. Note on use of immunocytochemistry reagents: This test was developed and its performance characteristics determined by [facility], Department of Laboratory Medicine. It has [...] part or completely in the following laboratories: [facility], CLIA #[id number] [address] [place] [address] [facility], CLIA #[id number] [address] [place] [address] [facility], CLIA #[id number] [address] [facility], [place] [address]. 01/09/2021 5:12 PM CDT [facility] Tissue RIGHT BREAST STRUCTURE / Unknown 01/05/2021 10:01 AM CDT 01/08/2021 7:05 AM CDT Comment:Right breast 1 ocloc k collected time 940 , formalin time 945 am, possible complex cyst Zay Ramos MD PATHOLOGY/CYTOLOGY O RDERABLES [facility] CLIA# [id number] [address] [place] [place] [address] [place] [address] documented in this encounter Visit Diagnoses Diagnosis [...] Site documented in this encounter Care Teams Insurance Verification Specialist Relationship Specialty Start Date End Date Dionte Vega MD [address] [place] [address] PCP - General Family Practice 05/25/10 documented as of this encounter
--- OUTSIDE RECORDS SUMMARY | 2024-09-16 10:57 | XMS_ITS | Encounter Summary ---
Author Organization [facility] Address [address] [place] [address] Care Team Providers Care Mixed Crop And Livestock Farmer Name Role Phone Dionte Vega MD Primary Care Provider [phone] Reason for Referral * Radiology Services (Routine) - Closed Specialty Diagnoses / Procedures Referred By Jared bridges Referred To Contact Diagnoses Abnormality of right breast on screening mammogram Mass of upper inner quadrant of right breast Morbid obesity with body mass index of 40.0-49.9 Mastodynia Procedures MAMMO POST PROCEDURE [place] [address] [address] [address] [facility] Test Scheduling [address] [address] Referral ID Status Reason Start Date Expiration Date V isits Requested Visits Authorized [id number] Closed [facility] CTS 12/12/2020 01/10/2021 1 1 Reason for Visit * Auth/Cert Specialty Diagnoses / Procedures Referred By Jared bridges Referred To Contact Radiology [facility] [address] [place] [address] Referral ID Status Reason Start Date Expiration Date Visits Re quested Visits Authorized [id number] 1 1 Encounter Details Date Type Department Care Team (Latest Contact Info) Description 01/05/2021 8:55 AM CDT - 01/05/2021 11:59 PM CDT Hospital Encounter [facility] Christophe Molina [address] [address] [place] [address] [place] [address] [address]cc[address]um [address] [place] [address] [...] ESCITALOPRAM OXALATE ORAL Take by mouth. OM [id number] ST ORAL Take by mouth. evening primrose [...] biopsy with tissue marker placement. DICTATION LOCATION: [facility] Erika Martinez MD MAMMO ORDERABLES documented in this encounter Visit Diagnoses Diagnosis Abnormality of right breast on screening mammogram Mass of upper inner quadrant of right breast Morbid obesity with body mass index of 40.0-49.9 Mastodynia documented in this encounter Care Teams Mixed Crop And Livestock Farmer Relationship Specialty Start Date End Date Dionte Vega MD [address] [place] [id number] PCP - General Family Practice 05/25/10 documented as of this encounter
--- OUTSIDE RECORDS SUMMARY | 2024-09-16 10:57 | XMS_ITS | Continuity of Care Document ---
Author Organization [employer] Address [address] [facility] [address] [place] [address] Phone Care Team Providers Care Boilerhouse Mechanic Name Role Phone Nadir Loo PT Unavailable [...] Diagnoses Date Provider Providers Copied on Encounter [facility], [address] [place], [place] [address] [address] [place] [address], [id number], tel:[phone] [place] No Information Eze Schmitz. . [facility], [id number], tel:[phone] [place] No Information Eze Ren . Referring Provider: Armando Blanchard, [address] [place] [address], [place], [address]. tel:[phone] [address] [facility], [address] [place] [address], [id number], tel:[phone] [place] No Information Eze Nadri. . Referring Provider: Armando Blanchard, [address] [place] [address], [address]. tel:[phone] [address] [facility], [facility] [address], [id number], tel:[phone] [place] No Information Nov-0 7 Eze Nadir. . Referring Provider: Armando Blanchard, [address] [place] [address], [id number]. tel:[phone] [facility], [address] [place] [address], [id number], tel:[phone] [place] No Information Eze Nadir. . Referring Provider: Armando Blanchard, [address] [place] [address], [address]. tel:[phone] [employer], [address], [id number], tel:[phone] [place] Other bursitis of hip, right hipLumbago with sciatica, right sideAcute right-sided low back pain with right-sided sciaticaWeakness of backHip stiffness, right Fe- Eze Nadir. . Referring Provider: Armando Blanchard, [address] [place] [address], [id number]. tel:[phone] Family History Family Member Type Diagnosis Age At Onset No Information Payers Payer name Insurance type Covered republican ID Jeffery zeng(s) [facility] [id number] Social History Type Description Quantity Date Captured [...]
--- OUTSIDE RECORDS SUMMARY | 2024-09-16 10:57 | XMS_ITS | Clinical Summary ---
Author Organization [facility] [address] Address [address] [place] [address] Care Team Providers Care Soda Fountain Manager Name Role Phone Deedee Long MD Primary [...] obesity with BMI of 45.0-49.9, adult (CMS /[facility]) 12/30/2017 Lipid screening 12/30/2017 QT prolongation 12/30/2017 Hypertension 2015 Encounters Date Type Department Care Team Description 08/17/2024 2:45 PM DISPLAY DIRECTOR Office Visit [facility] Medical [facility] Cardiology at [address] [place] [address] Amol Martinez MD Palpitations (Primary Dx); Frequent [...] Grandmother Floresita Szakacsi Obesity Maternal Grandmother Floresita Lbooakacsi Vision loss Maternal Grandmother Floresita Loboakacsi Arthritis [...] on file 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:55 AM DISPLAY DIRECTOR Gender Identity Not on file Sexual Orientation Not on file Obstetrics History Last Filed Vital Signs Vital Sign Reading Time Taken Comments Blood Pressure 134/90 08/17/2024 2:34 PM DISPLAY DIRECTOR Pulse 103 08/17/2024 2:34 PM DISPLAY DIRECTOR Temperature - - Respiratory Rate - - Oxygen Saturation 97% 08/17/2024 2:34 PM DISPLAY DIRECTOR Inhaled Oxygen Concentration - - Weight 124.3 kg (274 lb) 08/17/2024 2:34 PM DISPLAY DIRECTOR Height 162.6 cm (5' 4 ) 08/17/2024 2:34 PM DISPLAY DIRECTOR Body Mass Index 47.03 08/17/2024 2:34 PM DISPLAY DIRECTOR Plan of Treatment Health Maintenance Due Date [...] patient's age to complete this topic Insurance [facility] CHOICE PLUS [facility] CHOICE PLUS Care Teams Soda Fountain Manager Relationship Specialty Start Date End Date Deedee Long MD PCP - General Family Medicine 10/07/22
--- OUTSIDE RECORDS SUMMARY | 2024-09-16 10:57 | XMS_ITS | Encounter Summary ---
Author Organization [facility] Address [address] [facility] Attn: Epic Prelude ADT [place] [address] Care Team Providers Care Advertising Sales Consultant Name Role Phone Dionte Vega MD Primary Care Provider [phone] Encounter Details Date Type Department Care Team [...] on filedocumented in this encounter Care Teams Advertising Sales Consultant Relationship Specialty Start Date End Date Dionte Vega MD [address] [place] [address] PCP - General Family Practice 05/25/10 documented as of this encounter
--- OUTSIDE RECORDS SUMMARY | 2024-09-16 10:57 | XMS_ITS | Encounter Summary ---
Author Organization [facility] Address [address] [place] [address] Care Team Providers Care Sewing Supervisor Name Role Phone Dionte Vega MD Primary Care Provider [phone] Encounter Details Date Type Department Care Team (Latest Contact Info) Description 08/31/2020 11:20 AM HOUSEKEEPING LEAD - 08/31/2020 11:59 PM [facility] Hospital Encounter [facility] Christophe [place] [address] [place] [address] [facility], External Provider [address] [place] [address] Discharge Disposition: Home or Self Care Social [...] PRIOR STUDY Routine 08/31/2020 11: 20 AM HOUSEKEEPING LEAD Follow up documented in this encounter Results * MAMMO PRIOR STUDY (08/31/2020 11:20 AM HOUSEKEEPING LEAD) Narrative 12/12/2020 11:21 AM CDT This exam was auto finalized to allow images to be scanned to PACS. External Provider [facility] DIAGNOSTIC IMAGI NG ORDERABLES documented in this encounter Visit Diagnoses Diagnosis Follow up documented in this encounter Care Teams Sewing Supervisor Relationship Specialty Start Date End Date Dionte Vega MD [address] [place] [address] PCP - General Family Practice 05/25/10 documented as of this encounter
--- OUTSIDE RECORDS SUMMARY | 2024-09-16 10:57 | XMS_ITS | Encounter Summary ---
Author Organization [facility] Address [address] [place] [address] Care Team Providers Care Charge Manager Name Role Phone Dionte Vega MD Primary Care Provider [phone] Encounter Details Date Type Department Care Team (Latest Contact Info) Description 02/02/2021 2:37 PM CDT - 02/02/2021 11:59 PM CDT Hospital Encounter [facility] [address] [place] [address] [place] [id number] [address] Discharge Disposition: Home or Self Care Anesthesia Record Procedure Summary Procedure Name Responsible [...] and Graph timeline. 1432 An Stop Meds * Agents No agents on file. * Blood No blood administrations on file. [...] Gabi Tsai RN 02/09/21 1647 by Patricia Lam, RN Supraglottic Airway Mask Shai: ventilated by [...] PM CDT documented as of this encounter Last Filed Vital Signs Vital Sign Reading Time Taken Comments Blood Pressure 129/84 02/02/2021 3:18 PM CDT Pulse 82 02/02/2021 3:18 PM CDT Temperature - - Respiratory Rate - - Oxygen Saturation 97% 02/02/2021 3:18 PM CDT Inhaled Oxygen Concentration - - Weight 128.4 kg (283 lb) 02/02/2021 3:18 PM CDT Height 162.6 cm (5' 4 ) 02/02/2021 3:18 PM CDT Body Mass Index 48.58 02/02/2021 3:18 PM CDT documented in this encounter Medications at Time [...] ESCITALOPRAM OXALATE ORAL Take by mouth. OM [id number] ST ORAL Take by mouth. evening primrose [...] by mouth. documented as of this encounter OR Notes * Anesthesia PAT Evaluation - Jed Arellano MD - 02/02/2021 3:15 PM CDT Pre-Procedure Anesthesiology Consultation and Evaluation (PACE) Service 02/02/2021 3:54 PM Name: Araceli Cedeno Age: 35 y.o. Sex: female CSN: [id number] Procedure(s): RIGHT BREAST EXCISIONAL BIOPSY WITH NEEDLE LOCALIZATION AT 11:00 AM [place] Allergies Allergen Reactions ??? Fluconazole Anxiety ??? Promethazine Anxiety Pre-Surgery Instructions: Medication Instructions ??? omeprazole (PriLOSEC) 40 mg Capsule, Delayed Release(E.C.) Continue taking as prescribed ??? metoprolol succinate (TOPROL XL) 50 mg Extended Release 24 hour tablet Take morning of surgery with sip of water ??? triamterene-hydroCHLOROthiazide (DYAZIDE) 37.5-25 mg capsule Take morning of surgery with sip of water ??? ESCITALOPRAM OXALATE ORAL Take morning of surgery with sip of water ??? OM [id number] ORAL Stop taking 1 week prior to surgery ??? evening primrose oil (EVENING PRIMROSE ORAL) Stop taking 1 week prior to surgery ??? albuterol HFA 90 mcg inhaler Bring with you day of surgery. ??? magnesium oxide 500 mg Capsule Stop taking 1 week prior to surgery ??? SAVELLA 50 mg tablet Take morning of surgery with sip of water ??? Pyridoxine 200 mg Tablet Sustained Release Stop taking 1 week prior to surgery ??? Cholecalciferol, Vitamin D3, 2,000 unit Capsule Stop taking 1 week prior to surgery ??? cyanocobalamin (VITAMIN B-12) 1,000 mcg Tablet Stop taking 1 week prior to surgery ??? CALCIUM CITRATE ORAL Stop taking 1 week prior to surgery Patient Active Problem List Diagnosis Date Noted ??? Intraductal papilloma of breast, right 01/16/2021 ??? Radial scar of breast 01/16/2021 ??? Mass of upper inner quadrant of right breast 12/12/2020 ??? Abnormality of right breast on screening mammogram 12/12/2020 ??? 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 Mastodynia 07/02/2019 ??? Left breast lump 07/02/2019 ??? Morbid obesity with body mass index of 40.0-49.9 Past Medical History: Diagnosis Date ??? Anxiety [...] (premature ventricular contractions) ??? Temporomandibular joint disorder Past Surgical History: Procedure Laterality Date ??? ENDOSCOPY, UPPER GI ??? HX SECTION ??? HX CHOLECYSTECTOMY ??? HX PELVIC LAPAROSCOPY 2007 ??? HX WISDOM TEETH EXTRACTION ??? HYSTEROSCOPY DIAGNOSTIC Social History Tobacco Use ??? Smoking status: Former Smoker Packs/day: 1.00 Years: 10.00 Pack years: 10.00 Types: Cigarettes Quit date: 07/02/2011 Years since quittin.5 ??? Smokeless tobacco: Never Used ? ? Tobacco comment: off & on Substance Use Topics ??? Alcohol use: Yes Comment: 1 per month Family History Problem Relation Name Age of Onset ??? Breast Cancer Paternal Grandmother 60 ??? Cancer Paternal Grandmother ??? Lung Cancer Paternal Grandmother ??? Colon Cancer Maternal Grandfather ??? Cancer Maternal Grandfather ??? Ovarian Cancer Neg Hx ??? Pancreatic Cancer Neg Hx Previous Anesthesia Problems/Concerns: No anesthesia problems/complications History of PONV No Motion sickness: Yes, if she has a migraine Review of Systems Cardiovascular: negative for chest pain, chest pressure/discomfort, palpitations, shortness of breath/dyspnea, syncope. PVCs, HTN. No PVC complaints in the last 3 months DASI score is 46.2 or 8.42 METS. Respiratory: positive for asthma, no issues with it at this time. Snoring - Yes, KENZIE - Yes, uses a CPAP Gastrointestinal: positive for reflux symptoms, controlled by medication and PUD. Genitourinary:negative. Musculoskeletal: positive for myalgias, arthralgias and stiff joints. TMJ and fibromyalgia, patientsees a chiropractor. Neurological: Migraines and anxiety Endocrine negative Hepatic: negative Hematologic: negative Onc: negative DEVELOPMENT PLANNER: PCOS. PHYSICAL EXAM BP 129/84 (BP Location: Left arm, Patient Position (BP): Sitting) Pulse 82 Ht 5' 4 (1.626 m) Wt 128.4 kg (283 lb) LMP 01/05/2021 SpO2 97% No BMI 48.58 kg/m?? Weight: Weight: 128.4 kg (283 lb) (02/02/21 1518) Height: Ht Readings from Last 1 Encounters: 02/02/21 5' 4 (1.626 m) BMI: Body mass index is 48.58 kg/m??. General Appearance: Alert, oriented, no acute distress and obese. Airway: normal range of motion; Airway Class: IV (only hard palate visible); Special Considerations None Dentition: good Lungs: clear to auscultation bilaterally, normal respiratory effort Heart: regular rate and rhythm, S1, S2 normal, no murmur, click, rub or gallop Neuro: alert, oriented x 3, no defects noted in general exam. Extremities: extremities normal, atraumatic, no cyanosis or edema LABS Lab Results Component Value Date/Time WBC 10.1 (H) 05/25/2010 06:10 PM HEMOGLOBIN 14.3 05/25/2010 06:10 PM HEMATOCRIT 40.3 05/25/2010 06:10 PM PLATELETS 319 05/25/2010 06:10 PM MCV 80.4 (L) 05/25/2010 06:10 PM Lab Results Component Value Date/Time SODIUM 137 05/25/2010 06:10 PM POTASSIUM 3.5 05/25/2010 06:10 PM CHLORIDE 107 05/25/2010 06:10 PM CO2 18 (L) 05/25/2010 06:10 PM CALCIUM 9.4 05/25/2010 06:10 PM BUN 9 05/25/2010 06:10 PM CREATININE 0.72 05/25/2010 06:10 PM GLUCOSE 107 (H) 05/25/2010 06:10 PM No results found for: INR, PT, PROTIMEPOC Lab Results Component Value Date/Time POC , URINE Negative 06/20/2008 12:59 PM HCG QUANT, BLOOD <5 05/25/2010 06:49 PM EKG: EKG not indicated today Other Studies/Considerations: None Risks/Alternatives discussed. Questions solicited and answered. Yes Postop pain management discussed yes Smoking/Tobacco Counseling: None Recommendations:Potential difficult intravenous access ATTESTATIONS (Not in a hospital admission) I obtained, updated or reviewed the patient's current medications including dosage, frequency, and route of administration. This information was obtained directly from the patient or litigation claim representative or caregiver or another available healthcare resource and updated in [facility] EMR. Social History Tobacco Use Smoking Status Former Smoker ??? Packs/day: 1.00 ??? Years: 10.00 ??? Pack years: 10.00 ??? Types: Cigarettes ??? Quit date: 07/02/2011 ??? Years since quittin.5 Smokeless Tobacco Never Used Tobacco Comment off & on Patient screened for tobacco use and identified as a Non-User of tobacco. REPORT AND NECESSARY FOLLOW-UP History and physical performed in [place]; tests (ECG, blood work) reviewed. Abnormal Results Found: no Further Testing or Evaluation Required: no Final [place] [facility] Review: May proceed with procedure/surgery: yes Patient has sleep apnea Floresita Mata NP I, Jed Arellano MD, attest that I have reviewed the Advanced Practitioner's note - including the history, documented findings, assessment, and plan. I agree with the plan as documented except where noted. Jed Arellano MD * Vicky-OP - Lovely Schwartz RN - 02/02/2021 3:15 PM CDT Images from the original note were not included. ? [facility] Routine Orders Protocol [facility] Approved by: [facility] - Medical Executive Committee Approval Date: 12/14/2020 ORDERS ARE ENTERED ???PER PROTOCOL?? Enter the protocol in the patient's electronic health record using smart phrase: .paceroutineordersprotocol PACE/Anesthesiology Care Screening for Procedures ??? Laboratory exams obtained within 3 months prior to surgery are acceptable if normal, or at baseline. ??? Hematocrit/Hemoglobin (Bkn8584) ??? Cases of expected major blood loss in patients of any age as evidenced by an order for Type andCross or Type and Screen. ??? PT/INR (Lab 320) should be drawn day of surgery ??? Patients taking Warfarin (Coumadin) or who have had Warfarin (Coumadin) discontinued within prior 7 days ??? BMP (Lab15) ??? Patients with: ??? Diabetes ??? Renal disease ??? Dialysis patients: Day of Surgery; If dialysis on day of surgery, Post-dialysis ??? Patients taking the following medications: - Digoxin - Diuretics - Steroids ??? BUN (Nvl935)/ Serum Cr (Lab66) ??? When use of intravenous contrast dye is planned ??? Liver function panel (Lab20) in any patient with: ??? Jaundice, or active liver disease ??? HgbA1c: If result not available from within 3 months of [facility]ACE phone or in- person contact, for patients that meet the following conditions: ??? Planned operation is an orthopedic or neurosurgical implant, AND ? ? Either a hx of diabetes or a BMI >35 ??? EKG (EKG) 12 lead EKG- obtained within the last 3 months for the following: ??? Known cardiac disease (CAD, CHF, moderate or worse valvular disease ??? Patients undergoing cardiac, thoracic, or vascular surgery ??? CIED ??? Cardiac Symptoms: Angina, dysrhythmia, palpitations, SOB, PND, S3 ??? Moderate or greater risk surgery with any of the following: Stroke/TIA/CVD, PAD/PVD, CKD (Cr>2), DM, or Drugs or toxins that alter conduction (e.g., digoxin, cocaine, MAOIs, antiarrhythmics, antipsychotics, TCAs) Blood Bank ; For surgical procedures, prepare blood per surgical Blood Bank process unless additional blood orblood products have been ordered by the provider, then follow provider order. *Additional testing maybe indicated based upon patient co-morbidities and planned procedure. Medication Orders ??? Unless otherwise ordered by a member of the PACE Anesthesiology Staff. 1. STOP a. Seven (7) DAYS PRIOR TO SURGERY: the use of all vitamins, herbal supplements, and other alternative substances. b. Seven (7) DAYS PRIOR TO SURGERY: the use of any UNPRESCRIBED Aspirin, Excedrin and NSAIDs which include Motrin, Ibuprofen, Aleve, and Naprosyn. c. 24 HOURS PRIOR TO PLANNED ARRIVAL AT [facility]: use of angiotensin-converting enzyme (BASIL) inhibitorand angiotensin receptor rob (ARB). 2. CONTINUE - on usual schedule and take medication day of surgery with sips of water to swallow a. Aspirin and NSAIDS unless specifically instructed by surgeon to discontinue. b. All prescription medicines on routine schedule as prescribed, unless instructed otherwise. * Vicky-OP - Lovely Schwartz RN - 02/02/2021 3:15 PM CDT Images from the original note were not included. [facility] Pre-Procedure Instructions [place] [facility] Name: Araceli Cedeno Age: 35 y.o. Please report to the: [x] Surgery Center Date of Procedure: 02/09/2021 Arrive at the time your surgeon's office has instructed. If you are unsure of the arrival time, please call your surgeon's office 24-48 hours before your surgery to confirm. PLEASE NOTIFY your surgeon promptly if you begin to feel ill prior to your surgery. A cold, sore throat, fever, or flu may require postponing the surgery to another date for your safety. Please follow these important instructions PRE-PROCEDURE ORAL INTAKE INSTRUCTIONS - DIETARY INSTRUCTIONS Follow your surgeon's instructions regarding oral intake prior to your scheduled procedure. If no specific instructions were given from your surgeon's office; below are the guidelines from the anesthesia department: Based on your health history and/or scheduled procedure, the following pre- procedure dietary instructions should be followed: * Do not eat food or drink liquids after midnight prior to your procedure. *Oral Hygiene: Adult patients are encouraged to brush teeth, without swallowing, on the day of the procedure. *Use of gum or hard candy on the day of a procedure is discouraged. Patients using gum or hard candy upon presentation to the facility shall be directed to remove the product and not resume use. WITHIN 24 HOURS PRIOR TO SURGERY ?? SHOWER AND SHAMPOO the evening before and morning of surgery using anti- bacterial soap. If instructed to use the soap provided; follow directions on the product or using anti-bacterial soap. ?? DO NOT shave near the surgical site. ?? After showering the morning of surgery, DO NOT APPLY body lotions, oil, deodorants, mousse, gel,or powder. Apply no lotions, gels or creams at bedtime for infant's last diaper change prior to schedule surgery. ?? DO NOT WEAR JEWELRY (rings, earrings, and body piercings), or hair pieces to the hospital. ?? SMOKING AND USE OF TOBACCO PRODUCTS We recommend patients abstain from smoking for as long as possible before and after surgery, but even quitting for a brief period is still beneficial. DO NOT SMOKE OR USE TOBACCO PRODUCTS 12 hours before arrival to hospital. ?? PLEASE DO NOT EAT anything--including GUM, CANDY, or MINTS--after midnight. You may BRUSH YOUR TEETH. DAY OF SURGERY INSTRUCTIONS ?? YOU WILL NEED A RESPONSIBLE ADULT UPON DISCHARGE to drive you home. ?? BRING PRESCRIBED INHALERS to the hospital with you but DO NOT BRING ANY OTHER MEDICATIONS to thehospital (unless otherwise instructed). ?? WEAR comfortable, loose fitting clothes or PJs to the hospital. ?? WEAR GLASSES instead of contact lenses to the hospital; bring a case if possible for glasses, dentures, and hearing aids as you will be asked to remove these items before your surgery. ?? Bring your insurance cards and regional dedicated truck driver's license or photo ID. DO NOT BRING VALUABLES or large amounts of davalos with you to the hospital. ?? BRING any medical devices you need to the hospital, including remotes for stimulators, CPAP, BIPAP, or WOUND VAC machines. ?? Surgical times are estimates and can vary depending on numerous factors. ?? Expect a minimum post-op recovery of 1 hour. The medical staff will provide updates to family and/or friends as appropriate. ??? For surgical procedures, patients may be allowed one visitor. Special consideration for pediatric patients under the age of 18 years. ??? Patient and any permitted visitor should arrive to the facility with a mask. If arriving to [facility] without a mask, one will be provided. Special consideration for pediatric patients under the age of 2 years. ??? Patient and visitor will go through facility entry screening ??? Patients will wear a mask from the time they enter, throughout the entire procedure, and will remain in a mask until they leave the facility or admitted. During your hospital stay you will receive a personal passcode to help protect your health information. This will be a number that you may share with anyone you choose to receive your protected health information (PHI). Family and friends will need to ask for you by name and use the passcode beforeyour care team can share information, either in person or by phone. Please ask those who have your passcode to protect it. ADVANCED PLANNING FOR MEDICATION USE STOP Seven (7) DAYS PRIOR TO SURGERY the use of all vitamins, herbal supplements, and other alternative substances. STOP Seven (7) DAYS PRIOR TO SURGERY the use of any UNPRESCRIBED Asprin, Excedrin and NSAIDs which include Motrin, Ibuprofen, Aleve, and Naprosyn. Pre-Surgery Instructions: Medication Instructions ??? omeprazole (PriLOSEC) 40 mg Capsule, Delayed Release(E.C.) Continue taking as prescribed ??? metoprolol succinate (TOPROL XL) 50 mg Extended Release 24 hour tablet Take morning of surgery with sip of water ??? triamterene-hydroCHLOROthiazide (DYAZIDE) 37.5-25 mg capsule Take morning of surgery with sip of water ??? ESCITALOPRAM OXALATE ORAL Take morning of surgery with sip of water ??? OM [id number] ORAL Stop taking 1 week prior to surgery ??? evening primrose oil (EVENING PRIMROSE ORAL) Stop taking 1 week prior to surgery ??? albuterol HFA 90 mcg inhaler Bring with you day of surgery. ??? magnesium oxide 500 mg Capsule Stop taking 1 week prior to surgery ??? SAVELLA 50 mg tablet Take morning of surgery with sip of water ??? Pyridoxine 200 mg Tablet Sustained Release Stop taking 1 week prior to surgery ??? Cholecalciferol, Vitamin D3, 2,000 unit Capsule Stop taking 1 week prior to surgery ??? cyanocobalamin (VITAMIN B-12) 1,000 mcg Tablet Stop taking 1 week prior to surgery ??? CALCIUM CITRATE ORAL Stop taking 1 week prior to surgery FAQs about Surgical Site Infections What is a Surgical Site Infection (SSI)? A surgical site infection is an infection that occurs after a surgery in the part of the body wherethe surgery took place. Most patients who have surgery do not develop an infection. However, infections develop in about 1 to 3 out of every 100 patients who have surgery. Some of the common symptomsof a surgical site infection are: ??? Redness and pain around the area where you had surgery ??? Drainage of cloudy fluid from your surgical wound ??? Fever Can SSI be treated? Yes. Most surgical site infections can be treated with antibiotics. The antibiotic given to you depends on the bacteria (germs) causing the infection. Sometimes patients with SSI also need another surgery to treat infection. What are some of the things that hospitals are doing to prevent SSIs? To prevent SSIs, doctors, nurses, and other healthcare providers: ??? Clean their hands and arms up to their elbows with antiseptic agent just before the surgery. ??? Clean their hands with soap and water or an alcohol-based hand rub before and after caring for each patient. ??? May remove some of your hair immediately before surgery using electric clippers if the hair is in the same area where the procedure will occur. They should not shave you with a razor. ??? Wear special hair covers, mask, gowns, and gloves during surgery to keep the surgery area clean. Give you antibiotics before your surgery starts. In most cases, you should get antibiotics within 60 minutes before the surgery starts and the antibiotics should be stopped within 24 hours after surgery. ??? Clean the skin at the site of your surgery with a special soap that kills germs What can I do to help prevent SSIs? Before your surgery: ??? Tell your doctor and other medical problems you may have. Health problems such as allergies, diabetes, and obesity could affect your surgery and your treatment. ??? Quit smoking. Patients who smoke get more infections. Talk to your doctor about how you can quit before your surgery. ??? Do not shave near where you will have surgery. Shaving with a razor can irritate your skin and make it easier to develop an infection. At the time of your surgery: ??? Speak up if someone tries to shave you with a razor before surgery. Ask why you need to be shaved and talk with your surgeon if you have any concerns. ??? Ask if you will get antibiotics before surgery. After your surgery: ??? Make sure that your healthcare providers clean their hands before examining you, either with soap and water or an alcohol-based hand rub. If you do not see your providers clean their hands, please ask them to do so. ??? Family and friends who visit you should not touch the surgical wound or dressings. ??? Family and friends should clean their hands with soap and water or an alcohol-based hand rub before and after visiting you. If you do not see them clean their hands, ask them to clean their hands. What do I need to do when I go home from the hospital? Before you go home, your doctor or nurse should explain everything you need to know about taking care of your wound. Make sure you understand how to care for your wound before you leave the hospital. ??? Always clean your hands before and after caring for your wound. ??? Before you go home, make sure you know who to contact if you have questions or problems after you get home. ??? If you have any symptoms of an infection, such as redness and pain at the surgery site, drainage, or fever, call your doctor immediately. If you have additional questions, please ask your doctor or nurse. documented in this encounter Plan of Treatment Not on file documented as of this encounter Procedures Procedure Name Priority Date/Time Associated Diagnosis Comments CBC WITHOUT DIFFERENTIAL Routine 02/02/2021 3:40 PM CDT BASIC METABOLIC PANEL Routine 02/02/2021 3:40 PM CDT documented in this encounter Results * (ABNORMAL) CBC WITHOUT DIFFERENTIAL (02/02/2021 3:40 PM CDT) [facility] WBC 9.2 4.0 - 9.8 K/uL 02/02/2021 4:25 PM CDT [facility] RBC 5.14(H) 3.90 - 4.90 M/uL 02/02/2021 4:25 PM [address] [facility] HEMOGLOBIN 13.7 11.8 - 14.8 g/dL 02/02/2021 4:25 PM [address] [facility] HEMATOCRIT 41.8 35.5 - 44.0 % 02/02/2021 4:25 PM CD[address] [facility] MCV 81.3(L) 82.0 - 99.0 fL 02/02/2021 4:25 PM CD[address] [facility] MCH 26.7(L) 27.2 - 32.6 pg 02/02/2021 4:25 PM CD[address] [facility] - [facility] MCHC 32.8 31.5 - 35.5 g/dL 02/02/2021 4:25 PM CD[address] [facility] PLATELETS 283 140 - 350 K/uL 02/02/2021 4:25 PM CDT [facility] MPV 10.4 9.3 - 12.4 fL 02/02/2021 4:25 PM CD[address] [facility] RDW 13.9 11.5 - 14.5 % 02/02/2021 4:25 PM CD[address] [facility] RDW-STDEV 39.9 37.1 - 48.7 fL 02/02/2021 4:25 PM CD[address] [facility] Blood Venipuncture / Unknown 02/02/2021 3:40 PM CDT 02/02/2021 4:15 PM CDT Floresita Mata CONFERENCE MANAGER HEMATOLOGY ORDERABLE S [facility] - [facility] CLIA# [id number] [address] [place] [address] * (ABNORMAL) BASIC METABOLIC PANEL (02/02/2021 3:40 PM CDT) SODIUM 135(L) 136 - 145 mmol/L 02/02/2021 5:44 PM CDT [facility] - [facility] POTASSIUM 3.7 3.5 - 5.0 mmol/L 02/02/2021 5:44 PM CDT [facility] CHLORIDE 101 98 - 107 mmol/L 02/02/2021 5:44 PM CDT [facility] CO2 24 22 - 29 mmol/L 02/02/2021 5:44 PM CDT [facility] CALCIUM 9.3 8.6 - 10.2 mg/dL 02/02/2021 5:44 PM CDT [facility] BUN 10 6 - 20 mg/dL 02/02/2021 5:44 PM CDT [facility] CREATININE 0.76 0.51 - 0.95 mg/dL 02/02/2021 5:44 PM CDT [facility] GLUCOSE 114(H) 74 - 99 mg/dL 02/02/2021 5:44 PM CDT [facility] GFR >60 mL/min/1.7 3 sq meter 02/02/2021 5:44 PM CDT [facility] Comment: eGFR has not been validated for use in the elderly (> 70 years of age), women, patients with serious co-morbid conditions, or persons with extremes of body size or muscle mass and should also be interpreted with caution in patients with acute kidney failure, dialysis dependent patients, patients reporting exceptional dietary intake (e.g. vegetarian diet, high protein diets, creatine supplementation), and patients with severe liver disease. Based on National Kidney Disease Education Program If patient is , please refer to the GFR result. GFR, >60 mL/min/1.7 3 sq meter 02/02/2021 5:44 PM CDT [facility] [place] ANION GAP 10 8 - 16 mmol/L 02/02/2021 5:44 PM CDT [facility] [place] Blood Venipuncture / Unknown 02/02/2021 3:40 PM CDT 02/02/2021 4:15 PM CDT Floresita M Mata CONFERENCE MANAGER CHEMISTRY ORDERABLES [facility]# [id number] [address] [place] [address] documented in this encounter Visit Diagnoses Not on filedocumented in this encounter Care Teams Charge Manager Relationship Specialty Start Date End Date Dionte Vega MD [address] [place] [phone] PCP - General Family Practice 05/25/10 documented as of this encounter
--- OUTSIDE RECORDS SUMMARY | 2024-09-16 10:57 | XMS_ITS | Encounter Summary ---
Author Organization [facility] Address [address] [place] [address] Care Team Providers Care Care Manager Name Role Phone Dionte Vega MD Primary Care Provider [phone] [phone] Encounter Details Date Type Department Care Team (Latest Contact Info) Description 11/08/2020 11:20 AM WHOLESALE ACCOUNT EXECUTIVE - 11/08/2020 11:59 PM WHOLESALE ACCOUNT EXECUTIVE Hospital Encounter [facility] Christophe [place] [address] [place] [address] [facility], External Provider [address] [place] [address] Discharge Disposition: Home or Self Care Social [...] COVID-19? Unable to assess 10/23/2020 10:18 AM WHOLESALE ACCOUNT EXECUTIVE documented as of this encounter Medications at [...] PRIOR STUDY Routine 11/08/2020 11: 20 AM WHOLESALE ACCOUNT EXECUTIVE Follow up documented in this encounter Results * MAMMO PRIOR STUDY (11/08/2020 11:20 AM WHOLESALE ACCOUNT EXECUTIVE) Narrative 12/12/2020 11:17 AM CDT This exam was auto finalized to allow images to be scanned to PACS. External Provider [facility] DIAGNOSTIC IMAGI NG ORDERABLES documented in this encounter Visit Diagnoses Diagnosis Follow up documented in this encounter Care Teams Care Manager Relationship Specialty Start Date End Date Dionte Vega MD [address] [place] [phone] PCP - General Family Practice 05/25/10 documented as of this encounter
--- OUTSIDE RECORDS SUMMARY | 2024-09-16 10:57 | XMS_ITS | Encounter Summary ---
Author Organization [facility] Address [address] Attn: Epic Prelude ADT [place] [address] Care Team Providers Care Early Intervention School Psychologist Name Role Phone Dionte Vega MD Primary Care Provider [phone] Encounter Details Date Type Department Care Team [...] on filedocumented in this encounter Care Teams Early Intervention School Psychologist Relationship Specialty Start Date End Date Dionte Vega MD [address] [place] [phone] PCP - General Family Practice 05/25/10 documented as of this encounter
--- OUTSIDE RECORDS SUMMARY | 2024-09-16 10:57 | XMS_ITS | Encounter Summary ---
Author Organization [facility] Address [address] [place] [address] Care Team Providers Care Refuse Collector Name Role Phone Dionte Vega MD Primary Care Provider [phone] Encounter Details Date Type Department Care Team (Late st Contact Info) Description 12/12/2020 Orders Only [facility] [place] C[facility] [address] [place] [address] Benedict Rick MD [address] [place] [address] Social History Tobacco Use Types [...] on filedocumented in this encounter Care Teams Refuse Collector Relationship Specialty Start Date End Date Dionte Vega MD [address] [place] [address] PCP - General Family Practice 05/25/10 documented as of this encounter
--- OUTSIDE RECORDS SUMMARY | 2024-09-16 10:57 | XMS_ITS | Encounter Summary ---
Author Organization [facility] Address [address] [place] [address] Care Team Providers Care Oven Heater Helper Name Role Phone Dionte Vega MD Primary Care Provider [phone] Encounter Details Date Type Department Care Team (Latest Contact Info) Description 10/28/2017 11:20 AM MAINTENANCE WORKER - 10/28/2017 11:59 PM MAINTENANCE WORKER Hospital Encounter [facility] Christophe Molina [address] [place] [address] [facility], External Provider [address] [place] [address] Discharge Disposition: Home or Self Care Social [...] PRIOR STUDY Routine 10/28/2017 11: 20 AM MAINTENANCE WORKER Follow up documented in this encounter Results * MAMMO PRIOR STUDY (10/28/2017 11:20 AM MAINTENANCE WORKER) Narrative 12/12/2020 11:18 AM CDT This exam was auto finalized to allow images to be scanned to PACS. External Provider [facility] DIAGNOSTIC IMAGI NG ORDERABLES documented in this encounter Visit Diagnoses Diagnosis Follow up documented in this encounter Care Teams Oven Heater Helper Relationship Specialty Start Date End Date Dionte Vega MD [address] [place] [address] PCP - General Family Practice 05/25/10 documented as of this encounter
--- OUTSIDE RECORDS SUMMARY | 2024-09-16 10:57 | XMS_ITS | Encounter Summary ---
Author Organization [facility] Address [address] [place] [address] Care Team Providers Care [employer] Team Member Name Role Phone Dionte Vega MD Primary Care Provider [phone] Encounter Details Date Type Department Care Team (Late st Contact Info) Description 12/12/2020 Chart Note [facility] Christophe Molina [address] [place] [address] Araceli Esquivel RN Social History [...] or concerns; contact information provided. Araceli Esquivel DEVULCANIZER CHARGER CBCN Breast Health Nurse Navigator-[facility] documented in this encounter Plan of Treatment Not on file documented as of this encounter Visit Diagnoses Not on filedocumented in this encounter Care Teams [employer] Team Member Relationship Specialty Start Date End Date Dionte Vega MD [address] [place] [address] PCP - General Family Practice 05/25/10 documented as of this encounter
--- OUTSIDE RECORDS SUMMARY | 2024-09-16 10:57 | XMS_ITS | Encounter Summary ---
Author Organization [facility] Address [address] [place] [address] Care Team Providers Care Manager Of Transportation Name Role Phone Dionte Vega MD Primary Care Provider [phone] Encounter Details Date Type Department Care Team (Late st Contact Info) Description 06/20/2008 Outpatient Historical [facility] Er, Authorized P NO ADDRESS ON FILE Kayden Anderson MD [facility] [place] [address] Social History Tobacco Use Types [...] Narrative 06/20/2008 2:56 PM CDT [facility] [address] ?[place], [place] ??[address] ?Admit Date: 06/20/2008 ?SUMMER ABRAMS ?Sex: F ?Admit Prov: ER, AUTHORIZED P ? Date: 1985 ?Primary Care Prov: ? CMRN: [id number] ?Room: ER-A ? SSN: [id number] ? IMAGING SERVICES ?Ordering Prov: N/A ? Accession Number: [id number] ?Interpretation ? CT of the abdomen and [...] ?06/20/2008 14:51 ? Electronically signed by: ??TENNILLE ERVIN ?06/20/2008 14:55 Procedure Note Tennille Ervin MD - 06/20/2008 [facility] [address] [place], [place] [address] Admit Date: 06/20/2008 SUMMER ABRAMS Sex: F Admit Prov: HAWA ZUNIGA P Date: 1985 Primary Care Prov: CMRN: [id number] [facility]: [id number] IMAGING SERVICES Ordering Prov: N/A Interpretation CT [...] SPECIFIC GRAVITY UA 1.015 1.001 - 1.030 [facility] GLUCOSE UA Negative Negative [facility] COLOR UA Pale [facility] NITRITE UA Negative Negative [facility] BILIRUBIN UA Negative Negative [facility] PH UA 6.0 5.0 - 8.0 [facility] KETONES UA Negative Negative [facility] CLARITY UA Clear [facility] PROTEIN UA Negative Negative [facility] BLOOD UA 1+(A) Negative [facility] LEUKOCYTE ESTERASE UA Trace(A) Negative [facility] UROBILINOGEN UA Normal <=1 mg/dL [facility] Urine specimen (specimen) 06/20/2008 12:59 PM CDT 06/20/2008 12:59 PM CDT Authorized P Er POINT OF CARE TESTIN G INTERFACE SYSTEM Refer to clinic/hospital department [facility] CLIA# [id number] [address] [address] * POC , URINE (06/20/2008 12:59 PM CDT) , URINE POC Negative Negative [facility] SPECIFIC GRAVITY UA 1.015 1.001 - 1.035 [facility] Urine specimen (specimen) 06/20/2008 12:59 PM CDT 06/20/2008 12:59 PM CDT Authorized P Er POINT OF CARE TESTIN G INTERFACE SYSTEM Refer to clinic/hospital department [facility] CLIA# [id number] [address] [place] [address] documented in this encounter Visit Diagnoses Not on filedocumented in this encounter Care Teams Manager Of Transportation Relationship Specialty Start Date End Date Dionte Vega MD [address] [place] [address] PCP - General Family Practice 05/25/10 documented as of this encounter
--- OUTSIDE RECORDS SUMMARY | 2024-09-16 10:57 | XMS_ITS | Encounter Summary ---
Author Organization [facility] Address [address] [place] [address] Care Team Providers Care Skoog Patching Machine Operator Name Role Phone Dionte Vega MD Primary Care Provider [phone] Encounter Details Date Type Department Care Team (Latest Contact Info) Description 04/15/2019 11:20 AM CDT - 04/15/2019 11:59 PM CDT Hospital Encounter [facility] Christ[place] [address] [place] [address] [facility], External Provider [address] [place] [address] Discharge Disposition: Home or Self Care Social [...] to be scanned to PACS. External Provider [facility] DIAGNOSTIC IMAGI NG ORDERABLES documented in this encounter Visit Diagnoses Diagnosis Follow up documented in this encounter Care Teams Skoog Patching Machine Operator Relationship Specialty Start Date End Date Dionte Vega MD [address] [address] PCP - General Family Practice 05/25/10 documented as of this encounter
--- OUTSIDE RECORDS SUMMARY | 2024-09-16 10:57 | XMS_ITS | Encounter Summary ---
Author Organization [facility] Address [address] [place] [address] Care Team Providers Care Semiconductor Lab Technician Name Role Phone Dionte Vega MD Primary Care Provider [phone] Encounter Details Date Type Department Care Team (Latest Contact Info) Description 11/08/2020 11:15 AM LEHR STRIPPER - 11/08/2020 11:59 PM LEHR STRIPPER Hospital Encounter [facility] Christophe Molina [address] [place] [address] [facility], External Provider [address] [place] [address] Discharge Disposition: Home or Self Care Social [...] COVID-19? Unable to assess 10/23/2020 10:18 AM LEHR STRIPPER documented as of this encounter Medications at [...] Comments MAMMO PRIOR STUDY Routine 11/08/2020 11: 15 AM LEHR STRIPPER Follow up documented in this encounter Results * MAMMO PRIOR STUDY (11/08/2020 11:15 AM LEHR STRIPPER) Narrative 12/12/2020 11:16 AM CDT This exam was auto finalized to allow images to be scanned to PACS. External Provider [facility] DIAGNOSTIC IMAGI NG ORDERABLES documented in this encounter Visit Diagnoses Diagnosis Follow up documented in this encounter Care Teams Semiconductor Lab Technician Relationship Specialty Start Date End Date Dionte Vega MD [address] [place] [address] PCP - General Family Practice 05/25/10 documented as of this encounter
--- OUTSIDE RECORDS SUMMARY | 2024-09-16 10:57 | XMS_ITS | Encounter Summary ---
Author Organization [facility] Address [address] [place] [address] Care Team Providers Care Fence Post Cutter Name Role Phone Dionte Vega MD Primary Care Provider [phone] Encounter Details Date Type Department Care Team (Latest Contact Info) Description 10/28/2017 11:25 AM ELECTRIC SOLDERER - 10/28/2017 11:59 PM ELECTRIC SOLDERER Hospital Encounter [facility] Christ[place] [address] [place] [address] [facility], External Provider [address] [place] [address] Discharge Disposition: Home or Self Care Social [...] PRIOR STUDY Routine 10/28/2017 11: 25 AM ELECTRIC SOLDERER Follow up documented in this encounter Results * MAMMO PRIOR STUDY (10/28/2017 11:25 AM ELECTRIC SOLDERER) Narrative 12/12/2020 11:18 AM CDT This exam was auto finalized to allow images to be scanned to PACS. External Provider [facility] DIAGNOSTIC IMAGI NG ORDERABLES documented in this encounter Visit Diagnoses Diagnosis Follow up documented in this encounter Care Teams Fence Post Cutter Relationship Specialty Start Date End Date Dionte Vega MD [address] [place] [address] PCP - General Family Practice 05/25/10 documented as of this encounter
--- OUTSIDE RECORDS SUMMARY | 2024-09-16 10:57 | XMS_ITS | Encounter Summary ---
Author Organization [facility] Address [address] [place] [address] Care Team Providers Care Aoc Airspace Control Officer Name Role Phone Dionte Vega MD Primary Care Provider [phone] Encounter Details Date Type Department Care Team (Latest Contact Info) Description 12/16/2018 11:20 AM CDT - 12/16/2018 11:59 PM CDT Hospital Encounter [facility] Christophe [place] [address] [place] [address] [facility], External Provider [address] [place] [id number] Discharge Disposition: Home or Self Care Social [...] be scanned to PACS. External Provider [facility] DIAGNOSTIC IMAGI NG ORDERABLES documented in this encounter Visit Diagnoses Diagnosis Follow up documented in this encounter Care Teams Aoc Airspace Control Officer Relationship Specialty Start Date End Date Dionte Vega MD [address] [address] PCP - General Family Practice 05/25/10 documented as of this encounter
--- OUTSIDE RECORDS SUMMARY | 2024-09-16 10:57 | XMS_ITS | Encounter Summary ---
Author Organization [facility] Address [address] [facility] Attn: Epic Prelude ADT [place] [address] Care Team Providers Care Dryland Farmer Name Role Phone Dionte Vega MD Primary Care Provider [phone] Encounter Details Date Type Department Care Team [...] on filedocumented in this encounter Care Teams Dryland Farmer Relationship Specialty Start Date End Date Dionte Vega MD [address] [place] [address] PCP - General Family Practice 05/25/10 documented as of this encounter
--- OUTSIDE RECORDS SUMMARY | 2024-09-16 10:58 | XMS_ITS | Referral Summary ---
Author Organization [facility] [address] Address [address] [place] [address] Care Team Providers Care Machine Hamper Maker Name Role Phone Deedee Long MD Primary Care Provider + Encounters Date Type Department Care Team Description 08/17/2024 2:45 PM LIFE MANAGER Office Visit [facility] Cardiology at [address] [place] [address] Amol Martinez MD Palpitations (Primary [...] Morbid obesity with BMI of 45.0-49.9, adult ([facility]) 12/30/2017 Lipid screening 12/30/2017 QT prolongation [...] on file 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:55 AM LIFE MANAGER Gender Identity Not on file Sexual Orientation Not on file Last Filed Vital Signs Vital Sign Reading Time Taken Comments Blood Pressure 134/90 08/17/2024 2:34 PM LIFE MANAGER Pulse 103 08/17/2024 2:34 PM LIFE MANAGER Temperature - - Respiratory Rate - - Oxygen Saturation 97% 08/17/2024 2:34 PM LIFE MANAGER Inhaled Oxygen Concentration - - Weight 124.3 kg (274 lb) 08/17/2024 2:34 PM LIFE MANAGER Height 162.6 cm (5' 4 ) 08/17/2024 2:34 PM LIFE MANAGER Body Mass Index 47.03 08/17/2024 2:34 PM LIFE MANAGER Plan of Treatment Not on file Insurance [facility] PL[facility] [employer] Care Teams Machine Hamper Maker Relationship Specialty Start Date End Date Deedee Long MD PCP - General Family Medicine 10/07/22
--- OUTSIDE RECORDS SUMMARY | 2024-09-16 10:58 | XMS_ITS | Encounter Summary ---
Author Organization [facility] Address [address] [place] [address] Care Team Providers Care Electric Motor Winders Assembler Name Role Phone Deedee Long MD Primary Care Provider + Reason for Visit * Reason Comments Med Refill Encounter Details Date Type Department Care Team (Late st Contact Info) Description 02/14/2024 Telephone [facility] Cardiology [address] [facility] [address] [place] [address] Isidoro Olvera MD [facility] [address] Med Refill Social History Tobacco Use Types Packs/Day Years Used Date Smoking Tobacco: Never Smokeless Tobacco: Never Alcohol Use Standard Drinks/Week Comments No 0 (1 standard drink = 0.6 oz pur e alcohol) Comments Unknown Sex and Gender Information Value Date Recorded Sex Assigned at Not on file 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:55 AM BACKEND TESTER Gender Identity Not on file Sexual Orientation Not on file documented as of this encounter Miscellaneous Notes * Telephone Encounter - Ramy Fisher MA - 02/27/2024 4:48 PM CDT Pt has not been seen in a year and a half Dr Olvera is gone so pt needs to see SHEEP SORTER if she wants meds refilled. MUST KEEP CURRENT APPT * Telephone Encounter - Etelvina Samano - 02/27/2024 1:38 PM CDT Pt requesting refill for metoprolol XL 100 mg, metoprolol XL 50 mg, and [facility] [place]. Pt is [facility] on [facility]. Contact: * Telephone Encounter - aRmy Fisher MA - 02/17/2024 12:09 PM CDT [...] [facility] [place]. Pt is scheduled at first available appt with [facility] on 07/14 and she is completely put of her meds. Contact: documented in this encounter Plan of Treatment Not on file documented as of this encounter Visit Diagnoses Diagnosis Palpitations documented in this encounter Care Teams Electric Motor Winders Assembler Relationship Specialty Start Date End Date Deedee Long MD PCP - General Family Medicine 10/07/22 documented as of this encounter
--- OUTSIDE RECORDS SUMMARY | 2024-09-16 10:58 | XMS_ITS | Encounter Summary ---
Author Organization [facility] Address [address] [place] [address] Care Team Providers Care Software Packaging Engineer Name Role Phone Deedee Long MD Primary Care Provider + Reason for Referral * Cardiology (Routine) - Closed Specialty Diagnoses / Procedures Referred By Contac t Referred To Contact Diagnoses Frequent PVCs Palpitations Procedures 48 HR Holter Monitor Isidoro Olvera MD Phone: tel: fax: [facility] Referral ID Status Reason Start Date Expiration Date Visits Re quested Visits Authorized [id number] Closed 10/07/2022 11/06/2023 1 1 BLE SHOOTER Reason for Visit * Reason Comments Follow-up 11 mo f/u Hypertension Palpitations PVC's Encounter Details Date Type Department Care Team (Late st Contact Info) Description 10/07/2022 3:45 PM TROUBLE SHOOTER Office Visit [facility] Cardiology [address] [facility] [facility] [address] [place] [address] Isidoro Olvera MD [address] [facility] [address] [place] [address] Frequent PVCs (Primary Dx); HTN [...] on file 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:55 AM TROUBLE SHOOTER Gender Identity Not on file Sexual Orientation Not on file documented as of this encounter Last Filed Vital Signs Vital Sign Reading Time Taken Comments Blood Pressure 110/72 10/07/2022 4:07 PM TROUBLE SHOOTER Pulse 89 10/07/2022 4:07 PM TROUBLE SHOOTER Temperature - - Respiratory Rate - - Oxygen Saturation 98% 10/07/2022 4:07 PM TROUBLE SHOOTER Inhaled Oxygen Concentration - - Weight 127.7 kg (281 lb 8 oz) 10/07/2022 4:07 PM TROUBLE SHOOTER Height 162.6 cm (5' 4 ) 10/07/2022 4:07 PM TROUBLE SHOOTER Body Mass Index 48.32 10/07/2022 4:07 PM TROUBLE SHOOTER documented in this encounter Progress Notes * [...] test, and bloodwork/lipids. Kain Olvera MD, FACC BLE SHOOTER documented in this encounter Miscellaneous Notes * Addendum Note - Jignesh Lewis MA - 10/07/2022 3:45 PM CSTAddended by: JIGNESH LEWIS on: 10/07/2022 05:03 PM Modules accepted: Orders BLE SHOOTER documented in this encounter Plan of Treatment Not on file documented as of this encounter Procedures Procedure Name Priority Date/Time Associated Diagnosis Comments POCT LIPID PANEL Routine 10/07/2022 5:02 PM TROUBLE SHOOTER Lipid screening documented in this encounter Results * 48 HR Holter Monitor (10/07/2022 5:11 PM TROUBLE SHOOTER) Anatomical Region Laterality Modality Other Narrative 10/14/2022 5:13 PM TROUBLE SHOOTER AMBULATORY CHEMIC MANGLER REPORT Patient Name: Araceli Cedeno Date of [...] was used to complete this document, therefore, custodian athletic equipment variances may occur. Cris Meza MD, [facility] 10/14/22 [facility] Cardiology Procedure Note Cris Meza MD - 10/14/2022 AMBULATORY CHEMIC MANGLER REPORT Patient Name: Araceli Cedeno Date of [...] heart rate of 84 beats per minute ([id number] beats per minute). There were only 4 [...] software was used to complete this document, therefore,custodian athletic equipment variances may occur. Cris Meza MD, [facility] 10/14/22 [facility] Cardiology Isidoro Olvera MD [facility] PROC EDURES Final Result * POCT lipid panel (10/07/2022 5:02 PM TROUBLE SHOOTER) Cholesterol, POC 180 mg/dL Comment:GLU = 132 HDL, POC 25 mg/dL Triglycerides, POC 363 mg/dL LDL Cholesterol POC 82 mg/dL Chol/HDL Ratio, POC 3.3 Non-HDL Cholesterol, POC 155 mg/dL Cholesterol Total, POC 180 mg/dL Capillary blood 10/07/2022 5 :02 PM TROUBLE SHOOTER Isidoro Olvera MD POINT OF CARE TEST ORDER SHONA Final Result documented in this encounter Visit Diagnoses Diagnosis Frequent PVCs- Primary HTN (hypertension), benign Essential hypertension, benign Pulmonary HTN (HCC) Palpitations Chronic fatigue Other malaise and fatigue Morbid obesity with BMI of 45.0-49.9, adult (HCC) KENZIE on CPAP Lipid screening Screening for lipoid disorders Frequent PVCs Palpitations documented in this encounter Care Teams Software Packaging Engineer Relationship Specialty Start Date End Date Deedee Long MD PCP - General Family Medicine 10/07/22 documented as of this encounter
--- OUTSIDE RECORDS SUMMARY | 2024-09-16 10:58 | XMS_ITS | Encounter Summary ---
Author Organization [facility] Address [address] [place] [address] Care Team Providers Care Director Of Corporate Sales Name Role Phone Kevin Vega MD Primary Care Provider [phone] Reason for Visit * Reason Comments Follow-up overdue f/u. Left ar m pain PVC's Hypertension Sleep Apnea Encounter Details Date Type Department Care Team (Late st Contact Info) Description 09/24/2021 10:15 AM AUGER MILL OPERATOR Office Visit [facility] Cardiology [address] [place] [address] Isidoro Olvera MD [address] [facility] [address] [place] [address] HTN (hypertension), benign (Primary Dx); [...] on file 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:55 AM AUGER MILL OPERATOR Gender Identity Not on file Sexual Orientation Not on file documented as of this encounter Last Filed Vital Signs Vital Sign Reading Time Taken Comments Blood Pressure 122/74 09/24/2021 10:21 AM AUGER MILL OPERATOR Pulse 96 09/24/2021 10:21 AM AUGER MILL OPERATOR Temperature - - Respiratory Rate - - Oxygen Saturation 97% 09/24/2021 10: 21 AM AUGER MILL OPERATOR Inhaled Oxygen Concentration - - Weight 124.6 kg (274 lb 12.8 oz) 2020 10:21 AM AUGER MILL OPERATOR Height 162.6 cm (5' 4 ) 09/24/2021 10:2 1 AM AUGER MILL OPERATOR Body Mass Index 47.17 09/24/2021 10:21 AM AUGER MILL OPERATOR documented in this encounter Progress Notes * [...] re recalls. 7. Lipids personally reviewed 09/20/21 BPT173, reasonably well controlled goal LDL<130. Continuelifestyle modification. -12 lead EKG today personally reviewed SR 80bpm MD 158msec QRS 96msec QTc 441msec Over 50% [...] test, and bloodwork/lipids. Kain Olvera MD, FACC R MILL OPERATOR documented in this encounter Miscellaneous Notes * Addendum Note - Sky Craig MA - 09/24/2021 10:15 AM CSTAddended by: SKY CRAIG on: 09/26/2021 04:32 PM Modules accepted: Orders R MILL OPERATOR documented in this encounter Plan of Treatment [...] documented as of this encounter Care Teams Director Of Corporate Sales Relationship Specialty Start Date End Date Kevin Vega MD [address] [place] [address] PCP - General Family Medicine 12/30/17 10/06/22 documented as of this encounter
--- OUTSIDE RECORDS SUMMARY | 2024-09-16 10:58 | XMS_ITS | Encounter Summary ---
Author Organization [facility] Address [address] [facility] [address] [place] [address] Care Team Providers Care Stunt Person Name Role Phone Kevin Vega MD Primary Care Provider [phone] Encounter Details Date Type Department Care Team (Late st Contact Info) Description 05/31/2020 Telephone [facility] Cardiology [address] [facility] [facility] [address] [place] [address] Isidoro Olvera MD [address] [facility] [address] [place] [address] Social History Tobacco Use Types Packs/Day Years Used Date Smoking Tobacco: Never Smokeless Tobacco: Never Alcohol Use Standard Drinks/Week Comments No 0 (1 standard drink = 0.6 oz pur e alcohol) Comments Unknown Sex and Gender Information Value Date Recorded Sex Assigned at Not on file 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:55 AM SAFETY PROFESSIONAL Gender Identity Not on file Sexual Orientation [...] taking 100 mg per day Pharmacy:[facility] * Telephone Encounter - Suyapa Naidu [...] documented as of this encounter Care Teams Stunt Person Relationship Specialty Start Date End Date Kevin Vega MD [address] [place] [address] PCP - General Family Medicine 12/30/17 10/06/22 documented as of this encounter
--- OUTSIDE RECORDS SUMMARY | 2024-09-16 10:58 | XMS_ITS | Encounter Summary ---
Author Organization [facility] Address [address] [place] [address] Care Team Providers Care Political Reporter Name Role Phone Kevin Vega MD Primary Care Provider [phone] Reason for Visit * Reason Comments Follow-up HR check and orthost atics visit only Encounter Details Date Type Department Care Team (Late st Contact Info) Description 12/17/2019 10:15 AM CDT Office Visit [facility] Cardiology [address] [place] [address] Frequent PVCs (Primary Dx) Social History Tobacco Use Types Packs/Day Years Used Date Smoking Tobacco: Never Smokeless Tobacco: Never Alcohol Use Standard Drinks/Week Comments No 0 (1 standard drink = 0.6 oz pur e alcohol) Comments Unknown Sex and Gender Information Value Date Recorded Sex Assigned at Not on file 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:55 AM INSTRUCTOR PILOT Gender Identity Not on file Sexual Orientation [...] Primary documented in this encounter Care Teams Political Reporter Relationship Specialty Start Date End Date Kevin Vega MD [address] [place] [place] [address] PCP - General Family Medicine 12/30/17 10/06/22 documented as of this encounter
--- OUTSIDE RECORDS SUMMARY | 2024-09-16 10:58 | XMS_ITS | Encounter Summary ---
Author Organization [facility] Address [address] [facility] [address] [place] [address] Care Team Providers Care Process Development Technician Name Role Phone Kevin Vega MD Primary Care Provider [phone] Encounter Details Date Type Department Care Team (Late st Contact Info) Description 12/24/2021 Telephone [facility] Cardiology [address] [place] [address] Isidoro Olvera MD [address] [facility] [address] [place] [address] Social History Tobacco Use Types Packs/Day Years Used Date Smoking Tobacco: Never Smokeless Tobacco: Never Alcohol Use Standard Drinks/Week Comments No 0 (1 standard drink = 0.6 oz pur e alcohol) Comments Unknown Sex and Gender Information Value Date Recorded Sex Assigned at Not on file 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:55 AM TRAINING REPRESENTATIVE Gender Identity Not on file Sexual Orientation [...] on filedocumented in this encounter Care Teams Process Development Technician Relationship Specialty Start Date End Date Kevin Vega MD [address] [place] [place] [address] PCP - General Family Medicine 12/30/17 10/06/22 documented as of this encounter
--- OUTSIDE RECORDS SUMMARY | 2024-09-16 10:58 | XMS_ITS | Encounter Summary ---
Author Organization [facility] Address [address] [place] [address] Care Team Providers Care Hvac Technician Name Role Phone Kevin Vega MD Primary Care Provider [phone] Reason for Visit * Reason Comments Follow-up 4 mo follow up on HT N, PVC's, KENZIE, palps Encounter Details Date Type Department Care Team (Late st Contact Info) Description 03/10/2020 3:30 PM CDT Telemedicine [facility] Cardiology [address] [place] [address] Isidoro Olvera MD [address] [facility] [address] [place] [address] HTN (hypertension), benign (Primary Dx); Palpitations; Frequent [...] on file 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:55 AM CERTIFIED INCOME TAX PREPARER Gender Identity Not on file Sexual Orientation [...] which took place via Real-time video connection ([employer] or similar). During the visit, I was located in the office and the patient was located at home in the [facility]. The patient visit started at 1628 and ended at 1643. Total encounter time was 18 minutes, which includes time spent today on pre charting, the patient encounter, and post charting. The patient: has been informed that the visit may not be secure and acknowledged the information. The option of participating in a telephone or video visit during the [facility] emergencywas explained to them. After being given [...] daily added in this encounter Care Teams Hvac Technician Relationship Specialty Start Date End Date Kevin Vega MD [address] [place] [address] PCP - General Family Medicine 12/30/17 10/06/22 documented as of this encounter
--- OUTSIDE RECORDS SUMMARY | 2024-09-16 10:58 | XMS_ITS | Encounter Summary ---
Author Organization [facility] Address [address] [place] [address] Care Team Providers Care Women'S Studies Lecturer Name Role Phone Deedee Long MD Primary Care Provider + Reason for Visit * Reason Comments Annual Exam Encounter Details Date Type Department Care Team (Late st Contact Info) Description 03/02/2024 11:30 AM CDT Office Visit [facility] Cardiology [address] [facility] [address] [facility] [address] [place] [address] Chrissy Arango NP [address] [facility] [address] [place] [address] Palpitations; Lipid screening Social History Tobacco Use Types Packs/Day Years Used Date Smoking Tobacco: Former Cigarettes 0.5 5 0 09/29/2000 - 09/29/2005 Smokeless Tobacco: Never Alcohol Use Standard Drinks/Week Comments No 0 (1 standard drink = 0.6 oz pur e alcohol) Comments Unknown Sex and Gender Information Value Date Recorded Sex Assigned at Not on file 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:55 AM SUPERVISOR COLOR PASTE MIXING Gender Identity Not on file Sexual Orientation [...] from the original note were not included. [facility] Cardiology [address] [place] [address] Date of Visit: 03/02/2024 Patient ID: Araceli [...] LN axillary working with PCP ever since [facility]. Vincent meds no sig changes. Vincent Metoprolol 150mg daily. No change in edema no new limitations. 03/02/2024 office visit with INSOLE BEVELER: She returns overdue for routine follow-up. She ran out of metoprolol 3 days ago. She had a hysterectomy earlier this year for a benign tumor and had some postop complications with bleeding. She tends to have more palpitations when she goes through an anxiety provoking experience like this. She continues to have problems with abdominal pain and is having follow-up with her remedial reading teacher and a urologist. Her usual blood pressure [...] hysterectomy. 03/02/2024 LEIDA Bradford- Nurse Practitioner with [facility] Cardiology This note is dictated and transcribed using [employer]. Regulatory Compliance Coordinator variancesmay occur. Despite proofreading, typographical errors may [...] 1 1:55 AM CDT us Chrissy Arango INSOLE BEVELER POINT OF CARE TEST ORDERA BLES Final [...] 02/15/2024 added in this encounter Care Teams Women'S Studies Lecturer Relationship Specialty Start Date End Date Deedee Long MD PCP - General Family Medicine 10/07/22 documented as of this encounter
--- OUTSIDE RECORDS SUMMARY | 2024-09-16 10:58 | XMS_ITS | Encounter Summary ---
Author Organization [facility] Address [address] [place] [address] Care Team Providers Care Public Transit Specialist Name Role Phone Kevin Vega MD Primary Care Provider Encounter Details Date Type Department Care Team (Late st Contact Info) Description 09/20/2021 Orders Only [facility] Cardiology [address] [place] [address] Provider, MD Frank Replaced by [facility] [place] [id number] Social History Tobacco Use Types Packs/Day Years Used Date Smoking Tobacco: Never Smokeless Tobacco: Never Alcohol Use Standard Drinks/Week Comments No 0 (1 standard drink = 0.6 oz pur e alcohol) Comments Unknown Sex and Gender Information Value Date Recorded Sex Assigned at Not on file 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:55 AM TAPPING MACHINE OPERATOR Gender Identity Not on file [...] on filedocumented in this encounter Care Teams Public Transit Specialist Relationship Specialty Start Date End Date Kevin Vega MD [address] [place] [address] PCP - General Family Medicine 12/30/17 10/06/22 documented as of this encounter
--- OUTSIDE RECORDS SUMMARY | 2024-09-16 10:58 | XMS_ITS | Encounter Summary ---
Author Organization [facility] Address [address] [facility] [address] [place] [address] Care Team Providers Care Airline Reservationist Name Role Phone Kevin Vega MD Primary Care Provider [phone] Encounter Details Date Type Department Care Team (Late st Contact Info) Description 05/20/2022 Telephone [facility] Cardiology [address] [place] [address] Isidoro Olvera MD [address] [facility] [address] [place] [address] Social History Tobacco Use Types Packs/Day Years Used Date Smoking Tobacco: Never Smokeless Tobacco: Never Alcohol Use Standard Drinks/Week Comments No 0 (1 standard drink = 0.6 oz pur e alcohol) Comments Unknown Sex and Gender Information Value Date Recorded Sex Assigned at Not on file 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:55 AM CLAY TRANSPORTER Gender Identity Not on file Sexual Orientation [...] on filedocumented in this encounter Care Teams Airline Reservationist Relationship Specialty Start Date End Date Kevin Vega MD [address] [place] [address] PCP - General Family Medicine 12/30/17 10/06/22 documented as of this encounter
--- OUTSIDE RECORDS SUMMARY | 2024-09-16 10:58 | XMS_ITS | Encounter Summary ---
Author Organization [facility] Address [address] [place] [address] Care Team Providers Care Metal Bonding Helper Name Role Phone Kevin Vega MD Primary Care Provider [phone] Encounter Details Date Type Department Care Team (Late st Contact Info) Description 03/18/2022 Telephone [facility] Cardiology [address] [place] [address] Isidoro Olvera MD [address] [facility] [address] [place] [address] Social History Tobacco Use Types Packs/Day Years Used Date Smoking Tobacco: Never Smokeless Tobacco: Never Alcohol Use Standard Drinks/Week Comments No 0 (1 standard drink = 0.6 oz pur e alcohol) Comments Unknown Sex and Gender Information Value Date Recorded Sex Assigned at Not on file 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:55 AM TAX APPRAISER Gender Identity Not on file Sexual Orientation [...] filedocumented in this encounter Care Teams Metal Bonding Helper Relationship Specialty Start Date End Date Kevin Vega MD [address] [place] [place] [address] PCP - General Family Medicine 12/30/17 10/06/22 documented as of this encounter
--- OUTSIDE RECORDS SUMMARY | 2024-09-16 10:58 | XMS_ITS | Encounter Summary ---
Author Organization [facility] Address [address] [place] [address] Care Team Providers Care Textile Engineer Name Role Phone Kevin Vega MD Primary Care Provider [phone] Encounter Details Date Type Department Care Team (Late st Contact Info) Description 05/03/2022 Telephone [facility] Cardiology [address] [place] [address] Isidoro Olvera MD [facility] [place] [address] [place] [address] Social History Tobacco Use Types Packs/Day Years Used Date Smoking Tobacco: Never Smokeless Tobacco: Never Alcohol Use Standard Drinks/Week Comments No 0 (1 standard drink = 0.6 oz pur e alcohol) Comments Unknown Sex and Gender Information Value Date Recorded Sex Assigned at Not on file 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:55 AM CLINICAL DATA RESEARCH Gender Identity Not on file Sexual Orientation [...] have with her heart conditions.Please advise.Thank you Contact:[phone] documented in this encounter Plan of Treatment Not on file documented as of this encounter Visit Diagnoses Not on filedocumented in this encounter Care Teams Textile Engineer Relationship Specialty Start Date End Date Kevin Vega MD [address] [place] [place] [address] PCP - General Family Medicine 12/30/17 10/06/22 documented as of this encounter
--- OUTSIDE RECORDS SUMMARY | 2024-09-16 10:58 | XMS_ITS | Encounter Summary ---
Author Organization [facility] Address [address] [place] [address] Care Team Providers Care Fish Cake Maker Name Role Phone Kevin Vega MD Primary Care Provider [phone] Encounter Details Date Type Department Care Team (Late st Contact Info) Description 04/22/2022 Telephone [facility] Cardiology [address] [place] [address] Isidoro Olvera MD [address] [facility] [address] [place] [address] Social History Tobacco Use Types Packs/Day Years Used Date Smoking Tobacco: Never Smokeless Tobacco: Never Alcohol Use Standard Drinks/Week Comments No 0 (1 standard drink = 0.6 oz pur e alcohol) Comments Unknown Sex and Gender Information Value Date Recorded Sex Assigned at Not on file 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:55 AM HIM CODER Gender Identity Not on file Sexual Orientation [...] on filedocumented in this encounter Care Teams Fish Cake Maker Relationship Specialty Start Date End Date Kevin Vega MD [address] [place] [address] PCP - General Family Medicine 12/30/17 10/06/22 documented as of this encounter
--- OUTSIDE RECORDS SUMMARY | 2024-09-16 10:58 | XMS_ITS | Encounter Summary ---
Author Organization [facility] Address [address] [place] [address] Care Team Providers Care Business Development Specialist Name Role Phone Deedee Long MD Primary Care Provider + Reason for Visit * Cardiology (Routine) - Closed Specialty Diagnoses / Procedures Referred By Contac t Referred To Contact Diagnoses Frequent PVCs Palpitations Procedures 48 HR Holter Monitor Isidoro Olvera MD Phone: tel: fax: [facility] Referral ID Status Reason Start Date Expiration Date Visits Re quested Visits Authorized [id number] Closed 10/07/2022 11/06/2023 1 1 Encounter Details Date Type Department Care Team (Late st Contact Info) Description 10/07/2022 3:00 PM CLAIM TRAINEE Ancillary Procedure [facility] Cardiology [address] [facility] [address] [place] [address] Frequent PVCs; Palpitations Social History Tobacco Use Types Packs/Day Years Used Date Smoking Tobacco: Never Smokeless Tobacco: Never Alcohol Use Standard Drinks/Week Comments No 0 (1 standard drink = 0.6 oz pur e alcohol) Comments Unknown Sex and Gender Information Value Date Recorded Sex Assigned at Not on file 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:55 AM CLAIM TRAINEE Gender Identity Not on file Sexual Orientation Not on file documented as of this encounter Plan of Treatment Not on file documented as of this encounter Procedures Procedure Name Priority Date/Time Associated Diagnosis Comments HOLTER MONITOR 48 HR Routine 10/07/2022 5:11 PM CLAIM TRAINEE Frequent PVCs Palpitations documented in this encounter Results * 48 HR Holter Monitor (10/07/2022 5:11 PM CLAIM TRAINEE) Anatomical Region Laterality Modality Other Narrative 10/14/2022 5:13 PM CLAIM TRAINEE AMBULATORY FILTER HELPER REPORT Patient Name: Araceli Cedeno Date of [...] was used to complete this document, therefore, truck terminal manager variances may occur. Cris Meza MD, [facility] 10/14/22 [facility] Cardiology Procedure Note Cris Meza MD - 10/14/2022 AMBULATORY FILTER HELPER REPORT Patient Name: Araceli Cedeno Date of [...] heart rate of 84 beats per minute (-380 beats per minute). There were only 4 [...] software was used to complete this document, therefore,truck terminal manager variances may occur. Cris Meza MD, [facility] 10/14/22 [facility] Cardiology Isidoro Olvera MD [facility] CARDIAC SERVICES PROC EDURES Final Result documented in this encounter Visit Diagnoses Diagnosis Frequent PVCs Palpitations documented in this encounter Care Teams Business Development Specialist Relationship Specialty Start Date End Date Deedee Long MD PCP - General Family Medicine 10/07/22 documented as of this encounter
--- OUTSIDE RECORDS SUMMARY | 2024-09-16 10:58 | XMS_ITS | Encounter Summary ---
Author Organization [facility] Address [address] [place] [address] Care Team Providers Care Operations Logistics Analyst Name Role Phone Kevin Vega MD Primary Care Provider Encounter Details Date Type Department Care Team (Late st Contact Info) Description 11/20/2021 Telephone [facility] Cardiology [address] [place] [address] Isidoro Olvera MD [address] [facility] [address] [place] [address] Social History Tobacco Use Types Packs/Day Years Used Date Smoking Tobacco: Never Smokeless Tobacco: Never Alcohol Use Standard Drinks/Week Comments No 0 (1 standard drink = 0.6 oz pur e alcohol) Comments Unknown Sex and Gender Information Value Date Recorded Sex Assigned at Not on file 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:55 AM RN LPN LVN Gender Identity Not on file Sexual Orientation Not on file documented as of this encounter Miscellaneous Notes * Telephone Encounter - Justine Prince RN - 11/20/2021 12:56 PM RN LPN LVN Spoke with pt, pt states she was [...] record but have not received I yet. LPN LVN * Telephone Encounter - Justine Prince RN - 11/20/2021 12:34 PM RN LPN LVN LM on requesting return call. LPN LVN * Telephone Encounter - Justine Prince RN - 11/20/2021 10:58 AM RN LPN LVN Faxed request to medical records for ER chart. LPN LVN * Telephone Encounter - Etelvina Durham - 11/20/2021 10:26 AM CST Pt called to report she has been having PVC's, SOB with exertion, and high BP. States she has been experiencing all this since she got her booster shot on 10/04. States she was at [place] [facility] yesterdaybecause she had an episode where she couldn't talk, type, or write correctly. Requesting call back to discuss. 11/19 BP= 156/103 11/20 BP= 127/93, 141/91 Contact: LPN LVN documented in this encounter Plan of Treatment Not on file documented as of this encounter Visit Diagnoses Not on filedocumented in this encounter Care Teams Operations Logistics Analyst Relationship Specialty Start Date End Date Kevin Vega MD [address] [place] [address] PCP - General Family Medicine 12/30/17 10/06/22 documented as of this encounter
--- OUTSIDE RECORDS SUMMARY | 2024-09-16 10:58 | XMS_ITS | Encounter Summary ---
Author Organization [facility] Address [address] [facility] [place] [address] Care Team Providers Care Meat And Poultry Inspector Name Role Phone Kevin Vega MD Primary Care Provider [phone] Encounter Details Date Type Department Care Team (Late st Contact Info) Description 12/14/2019 Telephone [facility] Cardiology [address] [facility] [address] [place] [address] Isidoro Olvera MD [address] [facility] [address] [place] [address] Social History Tobacco Use Types Packs/Day Years Used Date Smoking Tobacco: Never Smokeless Tobacco: Never Alcohol Use Standard Drinks/Week Comments No 0 (1 standard drink = 0.6 oz pur e alcohol) Comments Unknown Sex and Gender Information Value Date Recorded Sex Assigned at Not on file 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:55 AM TELEPATHIST Gender Identity Not on file Sexual Orientation [...] 12/14/2019 12:23 PM CDT Pt returned call. [phone] * Telephone Encounter - Sofia Alba RN - 12/14/2019 12:19 PM CDT Lm on vm for pt to return call * Telephone Encounter - Roxy Carlos - 12/14/2019 11:35 AM CDT Pt called to report that she is getting light headed and dizzy when she takes the medication Metoprolol XL 50 mg [phone] documented in this encounter Plan of Treatment Not on file documented as of this encounter Visit Diagnoses Not on filedocumented in this encounter Care Teams Meat And Poultry Inspector Relationship Specialty Start Date End Date Kevin Vega MD [address] [place] [address] PCP - General Family Medicine 12/30/17 10/06/22 documented as of this encounter
--- OUTSIDE RECORDS SUMMARY | 2024-09-16 10:58 | XMS_ITS | Encounter Summary ---
Author Organization [facility] Address [address] [facility] [address] [place] [address] Care Team Providers Care Space Controller Name Role Phone Kevin Vega MD Primary Care Provider [phone] Encounter Details Date Type Department Care Team (Late st Contact Info) Description 03/10/2020 Telephone [facility] Cardiology [address] [facility] [address] [place] [address] Isidoro Olvera MD [address] [facility] [address] [place] [address] Social History Tobacco Use Types Packs/Day Years Used Date Smoking Tobacco: Never Smokeless Tobacco: Never Alcohol Use Standard Drinks/Week Comments No 0 (1 standard drink = 0.6 oz pur e alcohol) Comments Unknown Sex and Gender Information Value Date Recorded Sex Assigned at Not on file 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:55 AM ONCOLOGY TECHNICIAN Gender Identity Not on file Sexual [...] on filedocumented in this encounter Care Teams Space Controller Relationship Specialty Start Date End Date Kevin Vega MD [address] [place] [address] PCP - General Family Medicine 12/30/17 10/06/22 documented as of this encounter
--- OUTSIDE RECORDS SUMMARY | 2024-09-16 10:58 | XMS_ITS | Encounter Summary ---
Author Organization [facility] Facility Care Team Providers Care Venue Coordinator Name Role Phone Kevin Vega MD Primary Care Provider [phone] Encounter Details Date Type Department Care Team [...] on file 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:55 AM SHUTTLE THREADER Gender Identity Not on file Sexual Orientation [...] on filedocumented in this encounter Care Teams Venue Coordinator Relationship Specialty Start Date End Date Kevin Vega MD [address] [place] [address] PCP - General Family Medicine 12/30/17 10/06/22 documented as of this encounter
--- OUTSIDE RECORDS SUMMARY | 2024-09-16 10:58 | XMS_ITS | Encounter Summary ---
Author Organization [facility] Address [address] [facility] [address] [place] [address] Care Team Providers Care Postal Mail Carrier Name Role Phone Kevin Vega MD Primary Care Provider [phone] Reason for Visit * Reason Comments ER Follow Up Encounter Details Date Type Department Care Team (Late st Contact Info) Description 11/23/2021 3:30 PM SOFTWARE TESTING SPECIALIST Office Visit [facility] Cardiology [address] [facility] [address] [place] [address] Chrissy Arango NP [address] [place] [address] Palpitations (Primary Dx); PVC (premature [...] file 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:55 AM SOFTWARE TESTING SPECIALIST Gender Identity Not on file Sexual Orientation Not on file documented as of this encounter Last Filed Vital Signs Vital Sign Reading Time Taken Comments Blood Pressure 120/72 11/23/2021 3:20 PM SOFTWARE TESTING SPECIALIST Pulse 93 11/23/2021 3:20 PM SOFTWARE TESTING SPECIALIST Temperature - - Respiratory Rate - - Oxygen Saturation 96% 11/23/2021 3:20 PM SOFTWARE TESTING SPECIALIST Inhaled Oxygen Concentration - - Weight 127.9 kg (282 lb) 11/23/2021 3:20 PM SOFTWARE TESTING SPECIALIST Height 162.6 cm (5' 4 ) 11/23/2021 3:20 PM SOFTWARE TESTING SPECIALIST Body Mass Index 48.41 11/23/2021 3:20 PM SOFTWARE TESTING SPECIALIST documented in this encounter Patient Instructions * Patient Instructions* Chrissy Arango NP - 11/23/2021 3:30 PM SOFTWARE TESTING SPECIALIST Increase metoprolol to 150 mg daily ( [...] checking it unless you don't feel well. WARE TESTING SPECIALIST documented in this encounter Ordered Prescriptions Prescription [...] from the original note were not included. [facility] Cardiology [address] [place] [address] Date of Visit: 11/23/2021 Patient ID: Araceli [...] 09/24/[address] Olvera, 11/19/2021 [facility] ER record I have also reviewed: allergies, [...] 11/23/2021 Chrissy Arango ANP- Nurse Practitioner with [facility] Cardiology This note is dictated and transcribed using Lanyrd Direct Software. Engine Maintenance Mechanic variancesmay occur. Despite proofreading, typographical errors may occur. WARE TESTING SPECIALIST documented in this encounter Plan of [...] 10/28/2021 added in this encounter Care Teams Postal Mail Carrier Relationship Specialty Start Date End Date Kevin Vega MD [address] [place] [address] PCP - General Family Medicine 12/30/17 10/06/22 documented as of this encounter
--- OUTSIDE RECORDS SUMMARY | 2024-09-16 10:58 | XMS_ITS | Encounter Summary ---
Author Organization [facility] Healthcare Address [address] [place] [address] Care Team Providers Care Rn Plastics Name Role Phone Deedee Long MD Primary Care Provider + Reason for Visit * Reason Comments Follow-up 5 mo follow up on pa lps, PVC, HTN, PHTN, KENZIE Encounter Details Date Type Department Care Team (Late st Contact Info) Description 08/17/2024 2:45 PM MANAGER UNDERWRITING Office Visit [facility] Cardiology at [address] [place] [address] Amol Martinez MD [address] [address] Palpitations (Primary Dx); Frequent PVCs [...] on file 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:55 AM MANAGER UNDERWRITING Gender Identity Not on file Sexual Orientation Not on file documented as of this encounter Last Filed Vital Signs Vital Sign Reading Time Taken Comments Blood Pressure 134/90 08/17/2024 2:34 PM MANAGER UNDERWRITING Pulse 103 08/17/2024 2:34 PM MANAGER UNDERWRITING Temperature - - Respiratory Rate - - Oxygen Saturation 97% 08/17/2024 2:34 PM MANAGER UNDERWRITING Inhaled Oxygen Concentration - - Weight 124.3 kg (274 lb) 08/17/2024 2:34 PM MANAGER UNDERWRITING Height 162.6 cm (5' 4 ) 08/17/2024 2:34 PM MANAGER UNDERWRITING Body Mass Index 47.03 08/17/2024 2:34 PM MANAGER UNDERWRITING documented in this encounter Progress Notes * [...] very complicated hospital stay last year at [facility] with a hysterectomy that was done for [...] 6 months or p.r.n. Amol Martinez MD GER UNDERWRITING documented in this encounter Plan of Treatment [...] 07/22/2024 added in this encounter Care Teams Rn Plastics Relationship Specialty Start Date End Date Deedee Long MD PCP - General Family Medicine 10/07/22 documented as of this encounter
--- OUTSIDE RECORDS SUMMARY | 2024-09-16 10:58 | XMS_ITS | Encounter Summary ---
Author Organization [facility] Address [address] [facility] [address] [place] [address] Care Team Providers Care Fuel Injection Servicer Name Role Phone Kevin Vega MD Primary Care Provider [phone] Encounter Details Date Type Department Care Team (Late st Contact Info) Description 04/25/2020 Telephone [facility] Cardiology [address] [facility] [address] [place] [address] Isidoro Olvera MD [address] [facility] [address] [place] [id number] Social History Tobacco Use Types Packs/Day Years Used Date Smoking Tobacco: Never Smokeless Tobacco: Never Alcohol Use Standard Drinks/Week Comments No 0 (1 standard drink = 0.6 oz pur e alcohol) Comments Unknown Sex and Gender Information Value Date Recorded Sex Assigned at Not on file 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:55 AM CONSTRUCTION 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 [phone] * Telephone Encounter - Sofia Alba RN [...] on filedocumented in this encounter Care Teams Fuel Injection Servicer Relationship Specialty Start Date End Date Kevin Vega MD [address] [place] [address] PCP - General Family Medicine 12/30/17 10/06/22 documented as of this encounter
--- OUTSIDE RECORDS SUMMARY | 2024-09-16 10:58 | XMS_ITS | Encounter Summary ---
Author Organization [facility] Address [address] [facility] [address] [place] [address] Care Team Providers Care Metal Sander And Finisher Name Role Phone Kevin Vega MD Primary Care Provider [phone] Encounter Details Date Type Department Care Team (Late st Contact Info) Description 10/05/2021 Orders Only [facility] Cardiology [address] [place] [address] Provider, MD Frank [address] [place], [place] [id number] Social History Tobacco Use Types Packs/Day Years Used Date Smoking Tobacco: Never Smokeless Tobacco: Never Alcohol Use Standard Drinks/Week Comments No 0 (1 standard drink = 0.6 oz pur e alcohol) Comments Unknown Sex and Gender Information Value Date Recorded Sex Assigned at Not on file 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:55 AM AUTO GLASS WORKER Gender Identity Not on file Sexual [...] filedocumented in this encounter Care Teams Metal Sander And Finisher Relationship Specialty Start Date End Date Kevin Vega MD [address] [place] [address] PCP - General Family Medicine 12/30/17 10/06/22 documented as of this encounter
--- OUTSIDE RECORDS SUMMARY | 2024-09-16 10:59 | XMS_ITS | Encounter Summary ---
Author Organization [facility] Address [address] [facility] [address] [place] [address] Care Team Providers Care Commercial Pest Control Technician Name Role Phone Kevin Vega MD Primary Care Provider [phone] Reason for Visit * Reason Comments Follow-up 4 mo follow up on pa lps, HTN, PVC's, KENZIE Encounter Details Date Type Department Care Team (Late st Contact Info) Description 11/01/2019 3:30 PM AIRLINE DISPATCHER Office Visit [facility] Cardiology [address] [place] [address] Isidoro Olvera MD [address] [place] [address] [place] [address] Other chest pain (Primary Dx); HTN (hypertension), [...] on file 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:55 AM AIRLINE DISPATCHER Gender Identity Not on file Sexual Orientation Not on file documented as of this encounter Last Filed Vital Signs Vital Sign Reading Time Taken Comments Blood Pressure 108/76 11/01/2019 3:43 PM AIRLINE DISPATCHER Pulse 84 11/01/2019 3:43 PM AIRLINE DISPATCHER Temperature - - Respiratory Rate - - Oxygen Saturation 96% 11/01/2019 3:43 PM AIRLINE DISPATCHER Inhaled Oxygen Concentration - - Weight 119.7 kg (264 lb) 11/01/2019 3:43 PM AIRLINE DISPATCHER Height 162.6 cm (5' 4 ) 11/01/2019 3:43 PM AIRLINE DISPATCHER Body Mass Index 45.32 11/01/2019 3:43 PM AIRLINE DISPATCHER documented in this encounter Ordered Prescriptions Prescription [...] test, and bloodwork/lipids. Kain Olvera MD, FAC INE DISPATCHER documented in this encounter Plan of Treatment [...] documented as of this encounter Care Teams Commercial Pest Control Technician Relationship Specialty Start Date End Date Kevin Vega MD [address] [place] [address] PCP - General Family Medicine 12/30/17 10/06/22 documented as of this encounter
--- OUTSIDE RECORDS SUMMARY | 2024-09-16 10:59 | XMS_ITS | Encounter Summary ---
Author Organization [facility] Care Team Providers Care Block Press Operator Name Role Phone Kevin Vega MD Primary Care Provider [phone] Encounter Details Date Type Department Care Team [...] on file 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:55 AM DAUB COLOR MIXER Gender Identity Not on file Sexual Orientation Not on file documented as of this encounter Plan of Treatment Not on file documented as of this encounter Visit Diagnoses Not on filedocumented in this encounter Care Teams Block Press Operator Relationship Specialty Start Date End Date Kevin Vega MD [address] [place] [address] PCP - General Family Medicine 12/30/17 10/06/22 documented as of this encounter
--- OUTSIDE RECORDS SUMMARY | 2024-09-16 10:59 | XMS_ITS | Encounter Summary ---
Author Organization [facility] Address [address] [facility] [address] [place] [address] Care Team Providers Care Audiovisual Technician Name Role Phone Kevin Vega MD Primary Care Provider [phone] Reason for Visit * Reason Comments Follow-up c/o CP, SOB,PVC's Encounter Details Date Type Department Care Team (Late st Contact Info) Description 07/01/2019 8:30 AM CDT Office Visit [facility] [address] [facility] [address] [id number] Chrissy Arango NP [address] [facility] [address] [facility] [address] [place] [address] Muscular chest pain (Primary Dx); [...] on file 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:55 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 Obedience Trainer variancesmay occur. Despite proofreading, typographical errors may [...] (two) times a day. Therapy completed 07/01/2019 am146-vtuq-iitob acid 29 mg iron- 1 mg tablet,chewable [...] 09/24/2021 added in this encounter Care Teams Audiovisual Technician Relationship Specialty Start Date End Date Kevin Vega MD [address] [place] [address] PCP - General Family Medicine 12/30/17 10/06/22 documented as of this encounter
--- OUTSIDE RECORDS SUMMARY | 2024-09-16 10:59 | XMS_ITS | Encounter Summary ---
Author Organization [facility] Address [address] [facility] [address] [place] [address] Care Team Providers Care Shake Maker Name Role Phone Kevin Vega MD Primary Care Provider [phone] Reason for Visit * Reason Comments Hospital Follow Up SOB, dizziness,heada ches, swelling in legs, chest pain Encounter Details Date Type Department Care Team (Late st Contact Info) Description 03/04/2019 3:30 PM CDT Office Visit [facility] [address] [facility] [address] [address] Chrissy Arango NP [address] [facility] [address] [place] [address] Frequent PVCs (Primary Dx); Essential [...] on file 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:55 AM CUT OUT AND MARKING 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 fy859-[id number]-[id number] acid 29 mg iron- 1 mg tablet,chewable, [...] This note is dictated and transcribed using Everdream Direct Software. Stripe Marker variancesmay occur. Despite proofreading, typographical errors may occur. documented in this encounter Plan of Treatment Not on file documented as of this encounter Visit Diagnoses Diagnosis Frequent PVCs- Primary Essential hypertension Unspecified essential hypertension Stress at work Other occupational circumstances or maladjustment KENZIE on CPAP documented in this encounter Care Teams Shake Maker Relationship Specialty Start Date End Date Kevin Vega MD [address] [place] [address] PCP - General Family Medicine 12/30/17 10/06/22 documented as of this encounter
--- OUTSIDE RECORDS SUMMARY | 2024-09-16 10:59 | XMS_ITS | Encounter Summary ---
Author Organization [facility] Address [address] [facility] [address] [place] [address] Care Team Providers Care Ivory Carver Name Role Phone Kevin Vega MD Primary Care Provider [phone] Reason for Referral * Cardiology (Routine) - Closed Specialty Diagnoses / Procedures Referred By Contac cyrus Referred To Contact Diagnoses Palpitations Frequent PVCs Procedures 48 HR Holter Monitor Isidoro Olvera MD Phone: tel: fax: Referral ID Status Reason Start Date Expiration Date Visits Re quested Visits Authorized [id number] Closed 07/23/2019 01/31/2021 1 1 Reason for Visit * Reason Comments Follow-up 3 week follow up on PVC's, KENZIE, HTN, palps, QT prolongation Encounter Details Date Type Department Care Team (Late st Contact Info) Description 07/23/2019 9:45 AM CDT Office Visit [facility] [address] [facility] [address] [place] [address] Isidoro Olvera MD [facility] [facility] [address] [place] [address] Palpitations (Primary Dx); Pulmonary HTN (CMS/HCC); Frequent [...] on file 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:55 AM FORM WORKER Gender Identity Not on file Sexual [...] today sinus rhythm 80 beats per minute AL interval 144 milliseconds QRS 102 milliseconds QT [...] 09/24/2021 added in this encounter Care Teams Ivory Carver Relationship Specialty Start Date End Date Kevin Vega MD [address] [place] [address] PCP - General Family Medicine 12/30/17 10/06/22 documented as of this encounter
--- OUTSIDE RECORDS SUMMARY | 2024-09-16 10:59 | XMS_ITS | Encounter Summary ---
Author Organization [facility] Facility Care Team Providers Care Housing Coordinator Name Role Phone Kevin Vega MD Primary Care Provider [phone] Encounter Details Date Type Department Care Team [...] on file 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:55 AM GUIDE SETTER Gender Identity Not on file Sexual Orientation Not on file documented as of this encounter Plan of Treatment Not on file documented as of this encounter Visit Diagnoses Not on filedocumented in this encounter Care Teams Housing Coordinator Relationship Specialty Start Date End Date Kevin Vega MD [address] [place] [address] PCP - General Family Medicine 12/30/17 10/06/22 documented as of this encounter
--- OUTSIDE RECORDS SUMMARY | 2024-09-16 10:59 | XMS_ITS | Encounter Summary ---
Author Organization [facility] Address [address] [facility] [address] [place] [address] Care Team Providers Care Manager Express Name Role Phone Kevin Vega MD Primary Care Provider [phone] Encounter Details Date Type Department Care Team (Late st Contact Info) Description 06/30/2019 Telephone [facility] [address] [facility] [address] [place] [address] Isidoro Olvera MD [address] [facility] [address] [place] [address] Social History Tobacco Use Types Packs/Day Years Used Date Smoking Tobacco: Never Smokeless Tobacco: Never Alcohol Use Standard Drinks/Week Comments No 0 (1 standard drink = 0.6 oz pur e alcohol) Comments Unknown Sex and Gender Information Value Date Recorded Sex Assigned at Not on file 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:55 AM SENIOR 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 [phone] documented in this encounter Plan of Treatment Not on file documented as of this encounter Visit Diagnoses Not on filedocumented in this encounter Care Teams Manager Express Relationship Specialty Start Date End Date Kevin Vega MD [address] [place] [address] PCP - General Family Medicine 12/30/17 10/06/22 documented as of this encounter
--- OUTSIDE RECORDS SUMMARY | 2024-09-16 10:59 | XMS_ITS | Encounter Summary ---
Author Organization [facility] Address [address] [facility] [address] [place] [address] Care Team Providers Care On Call Pharmacy Technician Name Role Phone Kevin Vega MD Primary Care Provider [phone] Encounter Details Date Type Department Care Team (Late st Contact Info) Description 02/12/2019 Telephone [facility] [address] [facility] [address] [place] [address] Isidoro Olvera MD [address] [facility] [address] [place] [address] Social History Tobacco Use Types Packs/Day Years Used Date Smoking Tobacco: Never Smokeless Tobacco: Never Alcohol Use Standard Drinks/Week Comments No 0 (1 standard drink = 0.6 oz pur e alcohol) Comments Unknown Sex and Gender Information Value Date Recorded Sex Assigned at Not on file 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:55 AM ENGINEER SERGEANT Gender Identity Not on file Sexual Orientation [...] and bp and pulse was low. cb [phone] documented in this encounter Plan of Treatment Not on file documented as of this encounter Visit Diagnoses Not on filedocumented in this encounter Care Teams On Call Pharmacy Technician Relationship Specialty Start Date End Date Kevin Vega MD [address] [place] [address] PCP - General Family Medicine 12/30/17 10/06/22 documented as of this encounter
--- OUTSIDE RECORDS SUMMARY | 2024-09-16 10:59 | XMS_ITS | Encounter Summary ---
Author Organization [facility] Facility Care Team Providers Care Marketing Instructor Name Role Phone Kevin Vega MD Primary Care Provider [phone] Encounter Details Date Type Department Care Team [...] on file 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:55 AM MECHANICAL DETAILER Gender Identity Not on file Sexual Orientation Not on file documented as of this encounter Plan of Treatment Not on file documented as of this encounter Visit Diagnoses Not on filedocumented in this encounter Care Teams Marketing Instructor Relationship Specialty Start Date End Date Kevin Vega MD [address] [place] [place] [address] PCP - General Family Medicine 12/30/17 10/06/22 documented as of this encounter
--- OUTSIDE RECORDS SUMMARY | 2024-09-16 10:59 | XMS_ITS | Encounter Summary ---
Author Organization [facility] Medical Group Address [address] [facility] [address] [place] [address] Care Team Providers Care Labor And Delivery Nurse Name Role Phone Kevin Vega MD Primary Care Provider [phone] Encounter Details Date Type Department Care Team (Late st Contact Info) Description 02/16/2019 Orders Only [facility] Health Information Management [address] [place] [address] Scanning, Provider Social History Tobacco Use Types Packs/Day Years Used Date Smoking Tobacco: Never Smokeless Tobacco: Never Alcohol Use Standard Drinks/Week Comments No 0 (1 standard drink = 0.6 oz pur e alcohol) Comments Unknown Sex and Gender Information Value Date Recorded Sex Assigned at Not on file 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:55 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
--- OUTSIDE RECORDS SUMMARY | 2024-09-16 10:59 | XMS_ITS | Encounter Summary ---
Author Organization [facility] Facility Care Team Providers Care Cloth Winder Name Role Phone Kevin Vega MD Primary Care Provider [phone] Encounter Details Date Type Department Care Team [...] file 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:55 AM SENIOR DIRECTOR CREATIVE SERVICES Gender Identity Not on file Sexual Orientation Not on file documented as of this encounter Plan of Treatment Not on file documented as of this encounter Visit Diagnoses Not on filedocumented in this encounter Care Teams Cloth Winder Relationship Specialty Start Date End Date Kevin Vega MD [address] [place] [address] PCP - General Family Medicine 12/30/17 10/06/22 documented as of this encounter
--- OUTSIDE RECORDS SUMMARY | 2024-09-16 10:59 | XMS_ITS | Encounter Summary ---
Author Organization [facility] Facility Care Team Providers Care Manager Academic Name Role Phone Kevin Vega MD Primary Care Provider [phone] Encounter Details Date Type Department Care Team [...] on file 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:55 AM SIENE MAKER Gender Identity Not on file Sexual Orientation Not on file documented as of this encounter Plan of Treatment Not on file documented as of this encounter Visit Diagnoses Not on filedocumented in this encounter Care Teams Manager Academic Relationship Specialty Start Date End Date Kevin Vega MD [address] [place] [address] PCP - General Family Medicine 12/30/17 10/06/22 documented as of this encounter
--- OUTSIDE RECORDS SUMMARY | 2024-09-16 10:59 | XMS_ITS | Encounter Summary ---
Author Organization [facility] Facility Care Team Providers Care Associate Artistic Director Name Role Phone Kevin Vega MD Primary Care Provider [phone] Encounter Details Date Type Department Care Team [...] file 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:55 AM MANAGER CHEMICAL Gender Identity Not on file Sexual Orientation Not on file documented as of this encounter Plan of Treatment Not on file documented as of this encounter Visit Diagnoses Not on filedocumented in this encounter Care Teams Associate Artistic Director Relationship Specialty Start Date End Date Kevin Vega MD [address] [place] [place] [address] PCP - General Family Medicine 12/30/17 10/06/22 documented as of this encounter
--- OUTSIDE RECORDS SUMMARY | 2024-09-16 10:59 | XMS_ITS | Encounter Summary ---
Author Organization [facility] Address [address] [facility] [address] [place] [address] Care Team Providers Care Public Improvement Inspector Name Role Phone Kevin Vega MD Primary Care Provider [phone] Reason for Visit * Diagnostic Imaging (Routine) - Closed Specialty Diagnoses / Procedures Referred By Contkay bridges Referred To Contact Cardiology Imaging Diagnoses Frequent PVCs Procedures Transthoracic Echo Complete W Doppler/CF Deon Arango NP Phone: tel: fax: [facility] Medical [facility] Cardiology [address] [facility] [address] [place] [address] Phone: tel: fax: Referral ID Status Reason Start Date Expiration Date Visits Re quested Visits Authorized [id number] Closed 03/12/2019 04/26/2019 1 1 Encounter Details Date Type Department Care Team (Late st Contact Info) Description 03/16/2019 3:00 PM CDT Ancillary Procedure [facility] Medical [facility] Cardiology [address] [facility] [address] [place] [address] Frequent PVCs Social History Tobacco Use Types Packs/Day Years Used Date Smoking Tobacco: Never Smokeless Tobacco: Never Alcohol Use Standard Drinks/Week Comments No 0 (1 standard drink = 0.6 oz pur e alcohol) Comments Unknown Sex and Gender Information Value Date Recorded Sex Assigned at Not on file 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:55 AM FISHER DIP NET Gender Identity Not on file Sexual Orientation [...] PM CDT [facility] [address] [facility] [address], [place] [address] [address] [facility] [address], [place] [address] P:[phone] P:[phone] Echocardiographic Report Patient Name: SUMMER PHILLIPS : 1985 Study Date: 03/16/2019 2:56:09 PM Gender: F Tech: Location: [place] Ref.Provider: JAYY Height(Cm): 163 BSA: 2.19 Weight(Kg): [...] Findings: Interpretation Site: Exam was interpreted at [facility]. Left Ventricle: Normal left ventricular systolic function. [...] - 03/16/2019 [facility] [address] [facility] [address], [place] [address] [address] [facility] [address], [place] [address] P:[phone] P:[phone] Echocardiographic Report Patient Name: SUMMER PHILLIPSPatient ID: [id number] : [id number] Date: 03/16/2019 2:56:09 PM Gender: FAccession #: [id number] Tech: GMLocation: [place] Ref.Provider: Getight(Cm): 163 BSA: 2.19Weight(Kg): 118.84 Heart [...] 16.00 - 28.00 ] cc/m2 MV Decel Qozt980 [ 150 - 200 ] msec ACS MM 2.20 cm PV Peak Vel1.18 [ 0.40 - 0.80 ] m/s TR Peak Vel2.68 [ 0.40 - 0.80 ] m/s TR Peak PG 29mmHg RVSP37.00 mmHg E'0.12 E/E' 6 Findings: Interpretation Site: Exam was interpreted at [facility]. Left Ventricle: Normal left ventricular systolic function. [...] MD 2019-03-16 16:52:24 CDT us Deon Arango ELECTRONICS COMMODITY MANAGER CV ECHO PROCEDURES Final Result documented in this encounter Visit Diagnoses Diagnosis Frequent PVCs documented in this encounter Care Teams Public Improvement Inspector Relationship Specialty Start Date End Date Kevin Vega MD [address] [place] [address] PCP - General Family Medicine 12/30/17 10/06/22 documented as of this encounter
--- OUTSIDE RECORDS SUMMARY | 2024-09-16 10:59 | XMS_ITS | Encounter Summary ---
Author Organization [facility] Address [address] [facility] [address] [place] [address] Care Team Providers Care Cuff Slitter Name Role Phone Kevin Vega MD Primary Care Provider [phone] Encounter Details Date Type Department Care Team (Late st Contact Info) Description 03/18/2019 Telephone [facility] [address] [address] Chrissy Arango NP [address] [address] Social History Tobacco Use Types Packs/Day Years Used Date Smoking Tobacco: Never Smokeless Tobacco: Never Alcohol Use Standard Drinks/Week Comments No 0 (1 standard drink = 0.6 oz pur e alcohol) Comments Unknown Sex and Gender Information Value Date Recorded Sex Assigned at Not on file 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:55 AM HR ADMINISTRATIVE ASSISTANT Gender Identity Not on file Sexual [...] 03/22/2019 9:23 AM CDT Pt returned call. [phone] * Telephone Encounter - Deedee Olson RN [...] on filedocumented in this encounter Care Teams Cuff Slitter Relationship Specialty Start Date End Date Kevin Vega MD [address] [place] [address] PCP - General Family Medicine 12/30/17 10/06/22 documented as of this encounter
--- OUTSIDE RECORDS SUMMARY | 2024-09-16 10:59 | XMS_ITS | Encounter Summary ---
Author Organization [facility] Address [address] [facility] [address] [place] [address] Care Team Providers Care Reproduction Production Manager Name Role Phone Kevin Vega MD Primary Care Provider [phone] Reason for Visit * Cardiology (Routine) - Closed Specialty Diagnoses / Procedures Referred By Contac t Referred To Contact Diagnoses Palpitations Frequent PVCs Procedures 48 HR Holter Monitor Isidoro Olvera MD Phone: tel: fax: Referral ID Status Reason Start Date Expiration Date Visits Re quested Visits Authorized [id number] Closed 07/23/2019 01/31/2021 1 1 Encounter Details Date Type Department Care Team (Latest Contact Info) Description 07/28/2019 3:15 PM CDT Ancillary Procedure [facility] Cardiology [address] [place] [address] Palpitations; Frequent PVCs Social History Tobacco Use Types Packs/Day Years Used Date Smoking Tobacco: Never Smokeless Tobacco: Never Alcohol Use Standard Drinks/Week Comments No 0 (1 standard drink = 0.6 oz pur e alcohol) Comments Unknown Sex and Gender Information Value Date Recorded Sex Assigned at Not on file 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:55 AM REGULATORY COMPLIANCE OFFICER Gender Identity Not on file Sexual Orientation [...] nonsustained ventricular tachycardia. Job ID/VF Job ID: [id number] LATORY COMPLIANCE OFFICER documented in this encounter Plan of Treatment Pending Results Name Type Priority Associated Diagnoses Date /Time 48 HR Holter Monitor Cardiac Services Routine Palpitations Frequent PVCs 07/28/2019 3:14 PM CDT documented as of this encounter Visit Diagnoses Diagnosis Palpitations Frequent PVCs documented in this encounter Care Teams Reproduction Production Manager Relationship Specialty Start Date End Date Kevin Vega MD [address] [place] [id number] PCP - General Family Medicine 12/30/17 10/06/22 documented as of this encounter
--- OUTSIDE RECORDS SUMMARY | 2024-09-16 11:00 | XMS_ITS | Encounter Summary ---
Author Organization [facility] Address [address] [facility] [address] [place] [address] Care Team Providers Care Military Science Instructor Name Role Phone Kevin Vega MD Primary Care Provider [phone] Encounter Details Date Type Department Care Team (Late st Contact Info) Description 04/30/2018 9:15 AM CDT Office Visit [facility] [address] [facility] [address] [place] [address] QT prolongation (Primary Dx) Social History Tobacco Use Types Packs/Day Years Used Date Smoking Tobacco: Never Smokeless Tobacco: Never Alcohol Use Standard Drinks/Week Comments No 0 (1 standard drink = 0.6 oz pur e alcohol) Comments Unknown Sex and Gender Information Value Date Recorded Sex Assigned at Not on file 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:55 AM HAM STRIPPER Gender Identity Not on file Sexual Orientation [...] Primary documented in this encounter Care Teams Military Science Instructor Relationship Specialty Start Date End Date Kevin Vega MD [address] [place] [address] PCP - General Family Medicine 12/30/17 10/06/22 documented as of this encounter
--- OUTSIDE RECORDS SUMMARY | 2024-09-16 11:00 | XMS_ITS | Encounter Summary ---
Author Organization [facility] Address [address] [facility] [address] [place] [address] Care Team Providers Care Scientific Process Operator Name Role Phone Kevin Vega MD Primary Care Provider [phone] Encounter Details Date Type Department Care Team (Late st Contact Info) Description 07/03/2018 2:30 PM CDT Office Visit [facility] [address] [facility] [address] [place] [address] PVC (premature ventricular contraction) (Primary Dx) Social History Tobacco Use Types Packs/Day Years Used Date Smoking Tobacco: Never Smokeless Tobacco: Never Alcohol Use Standard Drinks/Week Comments No 0 (1 standard drink = 0.6 oz pur e alcohol) Comments Unknown Sex and Gender Information Value Date Recorded Sex Assigned at Not on file 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:55 AM CALENDERING SUPERVISOR Gender Identity Not on file Sexual [...] beats documented in this encounter Care Teams Scientific Process Operator Relationship Specialty Start Date End Date Kevin Vega MD [address] [place] [address] PCP - General Family Medicine 12/30/17 10/06/22 documented as of this encounter
--- OUTSIDE RECORDS SUMMARY | 2024-09-16 11:00 | XMS_ITS | Encounter Summary ---
Author Organization [facility] Address [address] [facility] [address] [place] [address] Care Team Providers Care Cnc Machine Programmer Name Role Phone Kevin Vega MD Primary Care Provider [phone] Encounter Details Date Type Department Care Team (Late st Contact Info) Description 09/01/2018 Telephone [facility] [address] [facility] [address] [address] Isidoro Olvera MD [address] [facility] [address] [place] [address] Social History Tobacco Use Types Packs/Day Years Used Date Smoking Tobacco: Never Smokeless Tobacco: Never Alcohol Use Standard Drinks/Week Comments No 0 (1 standard drink = 0.6 oz pur e alcohol) Comments Unknown Sex and Gender Information Value Date Recorded Sex Assigned at Not on file 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:55 AM ROTOR WINDER Gender Identity Not on file Sexual Orientation Not on file documented as of this encounter Miscellaneous Notes * Telephone Encounter - Caroline Morris RN - 09/01/2018 1:23 PM ROTOR WINDER spoke with pt, she said she had [...] she decides to get a monitor placed. R WINDER * Telephone Encounter - Krystal Beard - 09/01/2018 11:58 AM CST Pt reports she has been experiencing increased breathlessness when getting up and moving around. Pain under left breast that goes down into her ribs. Occasionally pain across her chest. Feeling nauseated. Started about a week and a half ago but is happening more frequently. Said people in her household have colds. [phone] R WINDER documented in this encounter Plan of Treatment Not on file documented as of this encounter Visit Diagnoses Not on filedocumented in this encounter Care Teams Cnc Machine Programmer Relationship Specialty Start Date End Date Kevin Vega MD [address] [place] [address] PCP - General Family Medicine 12/30/17 10/06/22 documented as of this encounter
--- OUTSIDE RECORDS SUMMARY | 2024-09-16 11:00 | XMS_ITS | Encounter Summary ---
Author Organization [facility] Address [address] [facility] [address] [place] [address] Care Team Providers Care Wood Floor Refinisher Name Role Phone Kevin Vega MD Primary Care Provider [phone] Reason for Referral * Diagnostic Imaging (Routine) - Closed Specialty Diagnoses / Procedures Referred By Contac cyrus Referred To Contact Cardiology Imaging Diagnoses Frequent PVCs Procedures Transthoracic Echo Complete W Doppler/CF Chrissy Arango NP Phone: tel: fax: [facility] Cardiology [address] [place] [address] Phone: tel: fax: Referral ID Status Reason Start Date Expiration Date Visits Re quested Visits Authorized [id number] Closed 03/12/2019 04/26/2019 1 1 Reason for Visit * Reason Comments Follow-up 6 mo f/u Encounter Details Date Type Department Care Team (Late st Contact Info) Description 02/05/2019 3:00 PM CDT Office Visit [facility] [address] [place] [address] Chrissy Arango NP [address] [place] [address] [place] [address] Frequent PVCs (Primary Dx); HTN (hypertension), [...] on file 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:55 AM HEAD BANDER AND LINER OPERATOR Gender Identity Not on file Sexual [...] by mouth daily., Disp: , Rfl: ??? [id number] acid 29 mg iron- 1 mg tablet,chewable, [...] This note is dictated and transcribed using [employer]. Environmental Compliance Engineer variancesmay occur. Despite proofreading, typographical errors [...] CDT [facility], [place] [address] [address] [facility] [address], [place] [address] P:[phone] P:[phone] Echocardiographic Report Patient Name: SUMMER PHILLIPS : 1985 Study Date: 03/16/2019 2:56:09 PM Gender: F Tech: Location: [place] Ref.Provider: JAYY Height(Cm): 163 BSA: 2.19 Weight(Kg): [...] Findings: Interpretation Site: Exam was interpreted at [facility]. Left Ventricle: Normal left ventricular [...] [facility] [address] [facility] [address], [place] [address] [address] [facility] [address], [place] [address] P:[phone] P:[phone] Echocardiographic Report Patient Name: SUMMER PHILLIPSPatient ID: [id number] : [id number] Date: 03/16/2019 2:56:09 PM Gender: FAccession #: [id number] Tech: GMLocation: [place] Ref.Provider: Zak(Cm): 163 BSA: 2.19Weight(Kg): 118.84 Heart [...] 16.00 - 28.00 ] cc/m2 MV Decel Zndh866 [ 150 - 200 ] msec ACS MM 2.20 cm PV Peak Vel1.18 [ 0.40 - 0.80 ] m/s TR Peak Vel2.68 [ 0.40 - 0.80 ] m/s TR Peak PG 29mmHg RVSP37.00 mmHg E'0.12 E/E' 6 Findings: Interpretation Site: Exam was interpreted at [facility]. Left Ventricle: Normal left ventricular [...] PVCs documented in this encounter Care Teams Wood Floor Refinisher Relationship Specialty Start Date End Date Kevin Vega MD [address] [place] [place] [address] PCP - General Family Medicine 12/30/17 10/06/22 documented as of this encounter
--- OUTSIDE RECORDS SUMMARY | 2024-09-16 11:00 | XMS_ITS | Encounter Summary ---
Author Organization [facility] Address [address] [facility] [address] [place] [address] Care Team Providers Care Manager Union Name Role Phone Kevin Vega MD Primary Care Provider [phone] Reason for Visit * Reason Comments Follow-up 3 mo follow up on PV C's, HTN, palps, QT prolongation, tachy Encounter Details Date Type Department Care Team (Late st Contact Info) Description 05/25/2018 9:00 AM CDT Office Visit [facility] [address] [facility] [address] [place] [address] Isidoro Olvera MD [address] [facility] [address] [place] [address] HTN (hypertension), benign (Primary Dx); [...] on file 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:55 AM SLEEVE SEWER Gender Identity Not on file Sexual Orientation [...] mg capsule milk thistle 150 mg capsule [id number] acid 29 mg iron- 1 mg tablet,chewable pyridoxine, vitamin B6, 200 mg tablet extended release SAVELLA 50 mg tablet sertraline (ZOLOFT) 50 mg tablet famotidine (PEPCID) 20 mg tablet PNV 16-iron fum,[id number]-[id number] 35-1-200 mg capsule ALLERGIES Allergies Allergen Reactions [...] Discontinued by another clinician 05/25/2018 PNV 16-iron fum,[id number]-[id number]-dbzx4 35-1-200 mg capsule Take by mouth daily. Discontinued by another clinician 05/25/2018 documented as of this encounter Historical Medications * This list may reflect changes made after this encounter. nr725-xxhn-glsln acid 29 mg iron- 1 mg tablet,chewable [...] 07/01/2019 added in this encounter Care Teams Manager Union Relationship Specialty Start Date End Date Kevin Vega MD [address] [place] [address] PCP - General Family Medicine 12/30/17 10/06/22 documented as of this encounter
--- OUTSIDE RECORDS SUMMARY | 2024-09-16 11:00 | XMS_ITS | Encounter Summary ---
Author Organization [facility] Address [address] [facility] [address] [place] [address] Care Team Providers Care Fire Information Officer Name Role Phone Kevin Vega MD Primary Care Provider [phone] Encounter Details Date Type Department Care Team (Late st Contact Info) Description 05/06/2018 Telephone [facility] [address] [facility] [address], [place] [address] Isidoro Olvera MD [address] [facility] [address] [place] [address] Social History Tobacco Use Types Packs/Day Years Used Date Smoking Tobacco: Never Smokeless Tobacco: Never Alcohol Use Standard Drinks/Week Comments No 0 (1 standard drink = 0.6 oz pur e alcohol) Comments Unknown Sex and Gender Information Value Date Recorded Sex Assigned at Not on file 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:55 AM BASKET MACHINE OPERATOR Gender Identity Not on file [...] like the prescription to be sent to [facility] [phone] documented in this encounter Plan of Treatment Not on file documented as of this encounter Visit Diagnoses Not on filedocumented in this encounter Discontinued Medications Medication Sig Discontinue Reason Start Date End Da te labetalol (NORMODYNE,TRANDATE) 200 mg tablet Take 200 mg by mouth 2 (two) times a day. Reorder 05/06/2018 documented as of this encounter Care Teams Fire Information Officer Relationship Specialty Start Date End Date Kevin Vega MD [address] [place] [address] PCP - General Family Medicine 12/30/17 10/06/22 documented as of this encounter
--- OUTSIDE RECORDS SUMMARY | 2024-09-16 11:00 | XMS_ITS | Encounter Summary ---
Author Organization [facility] Address [address] [facility] [address] [place] [address] Care Team Providers Care Drapery Inspector Name Role Phone Kevin Vega MD Primary Care Provider [phone] Encounter Details Date Type Department Care Team (Late st Contact Info) Description 06/29/2018 Telephone [facility] [address] [facility] [address], [place] [address] Isidoro Olvera MD [address] [facility] [address] [place] [address] Social History Tobacco Use Types Packs/Day Years Used Date Smoking Tobacco: Never Smokeless Tobacco: Never Alcohol Use Standard Drinks/Week Comments No 0 (1 standard drink = 0.6 oz pur e alcohol) Comments Unknown Sex and Gender Information Value Date Recorded Sex Assigned at Not on file 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:55 AM CASUALTY INSURANCE CLAIM ADJUSTER Gender Identity Not on file Sexual Orientation [...] fine to leave a detailed message. cb [phone] * Telephone Encounter - Caroline Morris RN - 06/29/2018 2:01 PM CDT LMTC * Telephone Encounter - Kimberly Redman - 06/29/2018 1:27 PM CDT Pt will like a call back regarding EKG, pt call back [phone] documented in this encounter Plan of Treatment Not on file documented as of this encounter Visit Diagnoses Not on filedocumented in this encounter Care Teams Drapery Inspector Relationship Specialty Start Date End Date Kevin Vega MD [address] [place] [address] PCP - General Family Medicine 12/30/17 10/06/22 documented as of this encounter
--- OUTSIDE RECORDS SUMMARY | 2024-09-16 11:00 | XMS_ITS | Encounter Summary ---
Author Organization [facility] Address [address] [facility] [address] [place] [address] Care Team Providers Care Movie Star Name Role Phone Kevin Vega MD Primary Care Provider [phone] Encounter Details Date Type Department Care Team (Late st Contact Info) Description 07/13/2018 Telephone [facility] [address] [facility] [address] [place] [address] Isidoro Olvera MD [address] [facility] [address] [place] [address] Social History Tobacco Use Types Packs/Day Years Used Date Smoking Tobacco: Never Smokeless Tobacco: Never Alcohol Use Standard Drinks/Week Comments No 0 (1 standard drink = 0.6 oz pur e alcohol) Comments Unknown Sex and Gender Information Value Date Recorded Sex Assigned at Not on file 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:55 AM ASSISTANCE COORDINATOR Gender Identity Not on file Sexual Orientation [...] on filedocumented in this encounter Care Teams Movie Star Relationship Specialty Start Date End Date Kevin Vega MD [address] [place] [address] PCP - General Family Medicine 12/30/17 10/06/22 documented as of this encounter
--- OUTSIDE RECORDS SUMMARY | 2024-09-16 11:01 | XMS_ITS | Encounter Summary ---
Author Organization [facility] Address [address] [facility] [address] [place] [address] Care Team Providers Care Computer Information Systems Instructor Name Role Phone Kevin Vega MD Primary Care Provider [phone] Encounter Details Date Type Department Care Team (Late st Contact Info) Description 01/22/2018 Telephone [facility] [address] [facility] [address] [place] [address] Isidoro Olvera MD [address] [facility] [address] [place] [address] Social History Tobacco Use Types Packs/Day Years Used Date Smoking Tobacco: Never Smokeless Tobacco: Never Alcohol Use Standard Drinks/Week Comments No 0 (1 standard drink = 0.6 oz pur e alcohol) Comments Unknown Sex and Gender Information Value Date Recorded Sex Assigned at Not on file 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:55 AM HEAD DOFFER Gender Identity Not on file Sexual Orientation [...] on filedocumented in this encounter Care Teams Computer Information Systems Instructor Relationship Specialty Start Date End Date Kevin Vega MD [address] [place] [place] [address] PCP - General Family Medicine 12/30/17 10/06/22 documented as of this encounter
--- OUTSIDE RECORDS SUMMARY | 2024-09-16 11:01 | XMS_ITS | Encounter Summary ---
Author Organization [facility] Medical Group Address [address] [place] [address] Care Team Providers Care Lead Java J2Ee Developer Name Role Phone Lacey Valente MD Primary Care Provider [phone] Kevin Vega MD Primary Care Provider [phone] Encounter Details Date Type Department Care Team (Late st Contact Info) Description 12/29/2017 Telephone [facility] [address] [address] Amol Martinez MD [address] [address] Social History Tobacco Use Types Packs/Day Years Used Date Smoking Tobacco: Never Assessed Comments Unknown Sex and Gender Information Value Date Recorded Sex Assigned at Not on file 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:55 AM QUILLER OPERATOR Gender Identity Not on file Sexual Orientation Not on file documented as of this encounter Miscellaneous Notes * Telephone Encounter - Sallie Oneal MA - 12/30/2017 12:30 PM CDT Patient is being seen this afternoon by AD. * Telephone Encounter - Sallie Oneal MA - 12/29/2017 11:01 AM CDT LM with Sallie at [facility] letting her know we will try to get her in this afternoon in the opening we have. Called patient who cannot make it this afternoon. Will call patient backas soon as we try to move around the schedule this week to get her seen. Patient aware will call back as soon as we can. documented in this encounter Plan of Treatment Not on file documented as of this encounter Visit Diagnoses Not on filedocumented in this encounter Care Teams Lead Java J2Ee Developer Relationship Specialty Start Date End Date Lacey Valente MD [address] [place] [address] PCP - General Family Medicine 12/29/17 12/29/17 Kevin Vega MD [address] [address] PCP - General Family Medicine 12/30/17 10/06/22 documented as of this encounter
--- OUTSIDE RECORDS SUMMARY | 2024-09-16 11:01 | XMS_ITS | Encounter Summary ---
Author Organization [facility] Medical [facility] Address [address] [place] [address] Care Team Providers Care Cyber Analyst Name Role Phone Kevin Vega MD Primary Care Provider [phone] Encounter Details Date Type Department Care Team (Latest Contact Info) Description 01/13/2018 11:30 AM CDT Procedure visit [facility] [address] [facility] [address] [place] [id number] Palpitations (Primary Dx) Social History Tobacco Use Types Packs/Day Years Used Date Smoking Tobacco: Never Smokeless Tobacco: Never Alcohol Use Standard Drinks/Week Comments No 0 (1 standard drink = 0.6 oz pur e alcohol) Comments Unknown Sex and Gender Information Value Date Recorded Sex Assigned at Not on file 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:55 AM AUTO FINANCE SALES 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
--- OUTSIDE RECORDS SUMMARY | 2024-09-16 11:01 | XMS_ITS | Encounter Summary ---
Author Organization [facility] Care Team Providers Care Perioperative Nurse Name Role Phone Unavailable Primary Care Provider Unavailabl e Encounter Details Date Type Department Care Team (Late st Contact Info) Description 07/14/2009 11:55 AM CDT - 07/14/2009 5:17 PM T Hospital Encounter [facility] Freddie Christy MD [address] [place] [address] Migraine; Nausea with vomiting Social History Tobacco Use Types Packs/Day Years Used Date Smoking Tobacco: Never Assessed Comments Unknown Sex and Gender Information Value Date Recorded Sex Assigned at Not on file 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:55 AM UNDERGRADUATE INTERN Gender Identity Not on file Sexual Orientation Not on file documented as of this encounter Plan of Treatment Not on file documented as of this encounter Visit Diagnoses Diagnosis Migraine Migraine, unspecified, without mention of intractable migraine without mention of status migrainosus Nausea with vomiting documented in this encounter
--- OUTSIDE RECORDS SUMMARY | 2024-09-16 11:01 | XMS_ITS | Encounter Summary ---
Author Organization [facility] Address [address] [facility] [address] [facility] [address] [place] [address] Care Team Providers Care Water Tanker Driver Name Role Phone Kevin Vega MD Primary Care Provider [phone] Encounter Details Date Type Department Care Team (Late st Contact Info) Description 01/20/2018 Telephone [facility] [address] [facility] [address] [place] [address] Isidoro Olvera MD [address] [facility] [address] [place] [address] Social History Tobacco Use Types Packs/Day Years Used Date Smoking Tobacco: Never Smokeless Tobacco: Never Alcohol Use Standard Drinks/Week Comments No 0 (1 standard drink = 0.6 oz pur e alcohol) Comments Unknown Sex and Gender Information Value Date Recorded Sex Assigned at Not on file 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:55 AM SPONGE PACKER Gender Identity Not on file Sexual Orientation [...] echo results. Pt can be reached at [phone]. ANDREW Stephens documented in this encounter Plan of Treatment Not on file documented as of this encounter Visit Diagnoses Not on filedocumented in this encounter Care Teams Water Tanker Driver Relationship Specialty Start Date End Date Kevin Vega MD [address] [place] [address] PCP - General Family Medicine 12/30/17 10/06/22 documented as of this encounter
--- OUTSIDE RECORDS SUMMARY | 2024-09-16 11:01 | XMS_ITS | Encounter Summary ---
Author Organization [facility] Medical [facility] Address [address] [facility] [address] [place] [address] Care Team Providers Care Investment Accountant Name Role Phone Kevin Vega MD Primary Care Provider [phone] Encounter Details Date Type Department Care Team (Late st Contact Info) Description 01/14/2018 Telephone [facility] [address] [facility] [address] [address] Isidoro Olvera MD [address] [facility] [address] [place] [address] Social History Tobacco Use Types Packs/Day Years Used Date Smoking Tobacco: Never Smokeless Tobacco: Never Alcohol Use Standard Drinks/Week Comments No 0 (1 standard drink = 0.6 oz pur e alcohol) Comments Unknown Sex and Gender Information Value Date Recorded Sex Assigned at Not on file 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:55 AM TAG WRITER Gender Identity Not on file Sexual Orientation [...] Patient seems [facility] her Buspar. [...] 05/06/2018 added in this encounter Care Teams Investment Accountant Relationship Specialty Start Date End Date Kevin Vega MD [address] [place] [place] [address] PCP - General Family Medicine 12/30/17 10/06/22 documented as of this encounter
--- OUTSIDE RECORDS SUMMARY | 2024-09-16 11:01 | XMS_ITS | Encounter Summary ---
Author Organization [facility] Medical [facility] Address [address] [facility] [address] [place] [address] Care Team Providers Care Rotary Cutter Operator Name Role Phone Kevin Vega MD Primary Care Provider [phone] Encounter Details Date Type Department Care Team (Late st Contact Info) Description 12/31/2017 Documentation [facility] [address] [facility] [address] [place] [address] Isidoro Olvera MD [address] [facility] [address] [place] [address] Social History Tobacco Use Types Packs/Day Years Used Date Smoking Tobacco: Never Smokeless Tobacco: Never Alcohol Use Standard Drinks/Week Comments No 0 (1 standard drink = 0.6 oz pur e alcohol) Comments Unknown Sex and Gender Information Value Date Recorded Sex Assigned at Not on file 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:55 AM CORK SLABS SAWYER Gender Identity Not on file Sexual Orientation Not on file documented as of this encounter Progress Notes * Sallie Oneal MA - 12/31/2017 9:31 AM CDT LM letting patient know that per AD on her EKG it showed QT prolonged. AD would like for her to stop or switch to a different medication instead of the buspar. Asked patient to please speak with OB or PCP whoever prescribed the medication to see what the alternative would be and to call us back to get her scheduled for an EKG in 2 weeks. documented in this encounter Plan of Treatment Not on file documented as of this encounter Visit Diagnoses Not on filedocumented in this encounter Care Teams Rotary Cutter Operator Relationship Specialty Start Date End Date Kevin Vega MD [address] [place] [place] [address] PCP - General Family Medicine 12/30/17 10/06/22 documented as of this encounter
--- OUTSIDE RECORDS SUMMARY | 2024-09-16 11:01 | XMS_ITS | Encounter Summary ---
Author Organization [facility] Address [address] [place] [address] Care Team Providers Care Case Planner Name Role Phone Kevin Vega MD Primary Care Provider Reason for Visit * Cardiology (Routine) - Closed Specialty Diagnoses / Procedures Referred By Contac t Referred To Contact Cardiology Imaging Diagnoses Palpitations Sinus tachycardia Frequent PVCs HTN (hypertension), benign 26 weeks gestation of Procedures Transthoracic Echo Complete W Doppler/CF Isidoro Olvera MD Phone: tel: fax: [facility] Cardiology [address] [place] [address] Phone: tel: fax: Referral ID Status Reason Start Date Expiration Date Visits Re quested Visits Authorized [id number] Closed 01/08/2018 02/22/2018 1 1 Encounter Details Date Type Department Care Team (Latest Contact Info) Description 01/16/2018 2:00 PM CDT Ancillary Procedure [facility] Medical [facility] Cardiology [address] [place] [address] Palpitations; Sinus tachycardia; Frequent PVCs; HTN [...] on file 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 Left Ventricle: Normal left ventricular systolic [...] - 01/16/2018 [facility] [address] [facility] [address] [id number] [address] [facility] [address], [place] [address] P:[phone] P:[phone] Echocardiographic Report Patient Name: SUMMER PHILLIPSPatient ID: [id number] : [id number] Date: 01/16/2018 1:53:55 PM Gender: FAccession #: [id number] Tech: GMLocation: [place] Ref.Physician: Luis VEGA(Cm): 163 BSA: 2.17Weight(Kg): 116.12 [...] 16.00 - 28.00 ] cc/m2 MV Decel [id number] [ 150 - 200 ] msec ACS MM 2.00 cm PV Peak Vel1.13 [ 0.40 - 0.80 ] m/s TR Peak Vel2.82 [ 0.40 - 0.80 ] m/s TR Peak PG 32mmHg RVSP40.00 mmHg E'0.10 E/E' 6 Findings: Interpretation Site: Exam was interpreted at [facility]. Left Ventricle: Normal left ventricular systolic [...] of documented in this encounter Care Teams Case Planner Relationship Specialty Start Date End Date Kevin Vega MD [address] [place] [address] PCP - General Family Medicine 12/30/17 10/06/22 documented as of this encounter
--- OUTSIDE RECORDS SUMMARY | 2024-09-16 11:01 | XMS_ITS | Encounter Summary ---
Author Organization [facility] Medical [facility] Address [address] [facility] [address] [place] [address] Care Team Providers Care Event Services Manager Name Role Phone Kevin Vega MD Primary Care Provider [phone] Reason for Visit * Reason Comments Follow-up 1 mo follow up on pa lps, tachy, PVC's, HTN, QT prolongation Encounter Details Date Type Department Care Team (Late st Contact Info) Description 02/09/2018 11:45 AM CDT Office Visit [facility] [address] [facility] [address] [place] [address] Isidoro Olvera MD [address] [facility] [address] [place] [address] Frequent PVCs (Primary Dx); HTN [...] on file 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 Kain Olvera MD, [facility] documented in this encounter Plan of Treatment [...] 09/24/2021 added in this encounter Care Teams Event Services Manager Relationship Specialty Start Date End Date Kevin Vega MD [address] [place] [address] PCP - General Family Medicine 12/30/17 10/06/22 documented as of this encounter
--- OUTSIDE RECORDS SUMMARY | 2024-09-16 11:01 | XMS_ITS | Encounter Summary ---
Author Organization [facility] Medical [facility] Address [address] [facility] [address] [facility] [address] [place] [address] Care Team Providers Care Fifth Grade Teacher Name Role Phone Kevin Vega MD Primary Care Provider [phone] Reason for Referral * Cardiology (Routine) - Closed Specialty Diagnoses / Procedures Referred By Contac t Referred To Contact Cardiology Imaging Diagnoses Palpitations Sinus tachycardia Frequent PVCs HTN (hypertension), benign 26 weeks gestation of Procedures Transthoracic Echo Complete W Doppler/CF Luis Daniel Olvera MD Phone: tel: fax: [facility] Cardiology [address] [place] [address] Phone: tel: fax: Referral ID Status Reason Start Date Expiration Date Visits Re quested Visits Authorized [id number] Closed 01/08/2018 02/22/2018 1 1 Reason for Visit * Reason Comments New Patient benita MCKEON pa lps Encounter Details Date Type Department Care Team (Late st Contact Info) Description 12/30/2017 1:15 PM CDT Office Visit [facility] [address] [place] [address] [address] [place] [address] Luis Daniel Olvera MD [address] [facility] [address] [place] [address] Palpitations (Primary Dx); Sinus tachycardia; Frequent PVCs; HTN (hypertension), benign; 26 weeks gestation of ; Morbid obesity with BMI of 40.0-44.9, adult ([facility]); Lipid screening; QT prolongation Social History Tobacco Use Types Packs/Day Years Used Date Smoking Tobacco: Never Smokeless Tobacco: Never Alcohol Use Standard Drinks/Week Comments No 0 (1 standard drink = 0.6 oz pur e alcohol) Comments Unknown Sex and Gender Information Value Date Recorded Sex Assigned at Not on file 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 Gender Identity Not on file Sexual Orientation Not on file documented as of this encounter Last Filed Vital Signs Vital Sign Reading Time Taken Comments Blood Pressure 114/72 12/30/2017 1:08 PM CDT Pulse 105 12/30/2017 1:08 PM CDT Temperature - - Respiratory Rate - - Oxygen Saturation 98% 12/30/2017 1:08 PM CDT Inhaled Oxygen Concentration - - Weight 116.1 kg (256 lb) 12/30/2017 1:08 PM CDT Height 162.6 cm (5' 4 ) 12/30/2017 1:08 PM CDT Body Mass Index 43.94 12/30/2017 1:08 PM CDT documented in this encounter Progress Notes * Luis Daniel Olvera MD - 12/30/2017 1:15 PM CDT [facility] DATE OF VISIT: 12/30/2017 CHIEF COMPLAINT Chief Complaint Patient presents with ??? New Patient SOB, lightheaded, palps ASSESSMENT Diagnoses and all orders for this visit: Palpitations (Primary) - ECG 12 lead - Transthoracic Echo Complete W Doppler/CF; Future Sinus tachycardia - ECG 12 lead - Transthoracic Echo Complete W Doppler/CF; Future Frequent PVCs - Transthoracic Echo Complete W Doppler/CF; Future HTN (hypertension), benign - Transthoracic Echo Complete W Doppler/CF; Future 26 weeks gestation of - Transthoracic Echo Complete W Doppler/CF; Future Morbid obesity with BMI of 40.0-44.9, adult (CMS/HCC) Lipid screening - POCT lipid panel QT prolongation PLAN/RECOMMENDATIONS 1. Minimize caffeine intake which may help although not responsible for presence of PVC's or tachycardia. Etiology of very frequent PVC's unclear. Discussed CM, automatic focus of PVC;s withint ventricular tissue. Need to exclude CM, valvular heart disease. No evidence for metabolic contribution. 2. BP controlled on Labetolol. No change at this time as may risk greater symptomatic hypotension. Monitor BP on routine basis. Call with readings. Continue consistent cardiovascular exercise, weightloss, medication compliance, and low-sodium diet. 3. Caution with ambulation, rise slowly from seated position to minimize risk for falls and injuries. 4. TSH normal, not anemic, electrolytes stable as is renal function 5. Concerning given pt is essentially at pre weight due to significant nausea. 6. 2D echo to assess LV systolic and diastolic function, valve pathology and pulmonary pressures 7. Pt is not in decompensated HF. While medications may be contributing I do not believe these are primary cause at this time. 8. Twelve lead EKG in office today sinus tachycardia 103 beats per minute IA 148 milliseconds QRS 88 milliseconds QT corrected 495 milliseconds, frequent premature ventricular contractions. Avoid QT prolonging drugs. Given potential QTc prolongation with Buspirone alternative advised and would recommend discontinuation with repeat 12 lead EKG in 2 weeks. Further recommendations to follow. Over 50% of this visit counseling PVC's, tachycardia, palpitations, HTN, lipids, medications, lifestyle modification. Follow up in the office in 1 month. Thank you for allowing me the privilege of participating in the care this very pleasant patient. Please do not hesitate to contact me with any additional questions or concerns. KJ Summer Phillips is a 32 y.o. female with a [...] her BP of late SBP 112 range. MEDICAL HISTORY Past Medical History: Diagnosis Date ??? Acid indigestion ??? Allergic rhinitis ??? Anxiety ??? Bladder infection ??? Cardiac rhythm disturbance ??? Depression ??? Hypertension ??? Overweight ??? Sinusitis Social History Substance Use Topics ??? Smoking status: Never Smoker ??? Smokeless tobacco: Never Used ??? Alcohol use No History reviewed. No pertinent family history. MEDICATIONS HOME MEDICATIONS : busPIRone (BUSPAR) 15 mg tablet calcium citrate-vitamin D3 500 mg calcium -400 unit tablet,chewable cholecalciferol (VITAMIN D-3) 2,000 unit capsule famotidine (PEPCID) 20 mg tablet labetalol (NORMODYNE,TRANDATE) 100 mg tablet magnesium oxide 500 mg capsule PNV 16-iron fum,ub-lzoqv-dltb1 35-1-200 mg capsule pyridoxine, vitamin B6, 200 [...] Negative for environmental allergies. PHYSICAL EXAM Vitals: 12/30/17 1308 BP: 114/72 Pulse: 105 SpO2: 98% Weight: 116.1 kg (256 lb) Height: 162.6 [...] stress test, and bloodwork/lipids. Kain Olvera MD, [facility] documented in this encounter Plan of Treatment Not on file documented as of this encounter Procedures Procedure Name Priority Date/Time Associated Diagnosis Comments POCT LIPID PANEL Routine 12/30/2017 1:59 PM CDT Lipid screening ECG 12-LEAD Routine 12/30/2017 Palpitations Sinus tachycardia documented in this encounter Results * TRANSTHORACIC ECHO (TTE) COMPLETE W DOPPLER/CF WO CONTRAST (01/16/2018 3:06 PM CDT) Anatomical Region Laterality Modality Ultrasound 01/16/2018 1:53 PM CDT Narrative 01/16/2018 4:42 PM CDT [facility] [address], [place] [address] [address], [place] [address] P:[phone] P:[phone] Echocardiographic Report Patient Name: SUMMER PHILLIPS : 1985 Study Date: 01/16/2018 1:53:55 PM Gender: F Tech: Location: [place] Ref.Physician: Kevin VEGA Height(Cm): 163 BSA: 2.17 Weight(Kg): 116.12 Heart Rate: 76 BP: 114/72 Quality: Good Order Physician: LUIS DANIEL OLVERA Procedures: Echocardiographic Report: Transthoracic echocardiogram with [...] Findings: Interpretation Site: Exam was interpreted at [facility]. Left Ventricle: Normal left ventricular [...] - 01/16/2018 [facility] [address], [place] [address] [address], [place] [address] P:[phone] P:[phone] Echocardiographic Report Patient Name: SUMMER PHILLIPSPatient ID: [id number] : [id number] Date: 01/16/2018 1:53:55 PM Gender: FAccession #: [id number] Tech: GMLocation: [place] Ref.Physician: Luis VEGA(Cm): 163 BSA: 2.17Weight(Kg): 116.12 Heart Rate: 76BP: 114/72 Quality: GoodOrder Physician: LUIS DANIEL OLVERA Procedures: Echocardiographic Report: Transthoracic echocardiogram with [...] 16.00 - 28.00 ] cc/m2 MV Decel [id number] [ 150 - 200 ] msec ACS MM 2.00 cm PV Peak Vel1.13 [ 0.40 - 0.80 ] m/s TR Peak Vel2.82 [ 0.40 - 0.80 ] m/s TR Peak PG 32mmHg RVSP40.00 mmHg E'0.10 E/E' 6 Findings: Interpretation Site: Exam was interpreted at [facility]. Left Ventricle: Normal left ventricular [...] Lord MD 2018-01-16 16:42:26 CDT CC: CC: Luis Daniel Olvera MD CV ECHO PROCEDURES Final Result * POCT lipid panel (12/30/2017 1:59 PM CDT) Cholesterol, POC 217 mg/dL HDL, POC 72 mg/dL Triglycerides, POC 261 mg/dL LDL Cholesterol POC 93 mg/dL Chol/HDL Ratio, POC 3.0 Non-HDL Cholesterol, POC 145 mg/dL Cholesterol Total, POC 217 mg/dL Blood specimen (specimen) 12/30/2017 1:59 PM CDT us Luis Daniel Olvera MD POINT OF CARE TEST ORDER SHONA Final Result * ECG 12 lead (12/30/2017) us Luis Daniel Olvera MD ECG ORDERABLES Final Re sult documented in this encounter Visit Diagnoses Diagnosis Palpitations- Primary Sinus tachycardia Other specified cardiac dysrhythmias Frequent PVCs HTN (hypertension), benign Essential hypertension, benign 26 weeks gestation of Morbid obesity with BMI of 40.0-44.9, adult ([facility]) Lipid screening Screening for lipoid disorders QT prolongation Palpitations Sinus tachycardia Other specified cardiac dysrhythmias Frequent PVCs HTN (hypertension), benign Essential hypertension, benign 26 weeks gestation of documented in this encounter Historical Medications * This list may reflect changes made after this encounter. magnesium oxide 500 mg capsule Take by mouth daily. pyridoxine, vitamin B6, 200 mg tablet extended release Take 300 mg by mouth Take 1 tab po in the morning and 0.5 tab po in the evening calcium citrate-vitamin D3 500 mg calcium -400 unit tablet,chewable Take by mouth daily. cholecalciferol (VITAMIN D-3) 2,000 unit capsule Take 1 capsule (2,000 Units total) by mouth daily SAVELLA 50 mg tablet Take 1 tablet (50 mg total) by mouth 2 (two) times a day 0 12/05/2017 PNV 16-iron fum,fu-hlpgb-jhba 3 35-1-200 mg capsule Take by mouth daily. 05/25/2018 famotidine (PEPCID) 20 mg tablet Take 20 mg by mouth 2 (two) times a day. 05/25/2018 busPIRone (BUSPAR) 15 mg tabletIndications :Generalized Anxiety Disorder Take 7.5 mg by mouth 2 (two) times a day. 10 11/18/2017 01/14/2018 labetalol (NORMODYNE,TRANDA TE) 100 mg tablet Take 2 tabs po in the morning and 1 tab po in the evening 2 12/23/2017 01/14/2018 added in this encounter Care Teams Fifth Grade Teacher Relationship Specialty Start Date End Date Kevin Vega MD [address] [place] [place] [address] PCP - General Family Medicine 12/30/17 10/06/22 documented as of this encounter
--- OUTSIDE RECORDS SUMMARY | 2024-09-16 11:01 | XMS_ITS | Encounter Summary ---
Author Organization [facility] Address [address] [place] [address] Care Team Providers Care Machine Whitener Name Role Phone Kevin Vega MD Primary Care Provider [phone] Encounter Details Date Type Department Care Team (Late st Contact Info) Description 01/15/2018 Orders Only [facility] Cardiology [address] [place] [id number] Provider, MD Frank [address] [place], [place] [id number] Social History Tobacco Use Types Packs/Day Years Used Date Smoking Tobacco: Never Smokeless Tobacco: Never Alcohol Use Standard Drinks/Week Comments No 0 (1 standard drink = 0.6 oz pur e alcohol) Comments Unknown Sex and Gender Information Value Date Recorded Sex Assigned at Not on file 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
== END 2024-09-12 01:40 | disposition home or self-care (01) ==
PROVIDERS: Emergency Provider Physician Assistant; PCP Family Medicine
DX: J18.9 Pneumonia, unspecified organism (principal); I10 Essential (primary) hypertension; Z87.891 Personal history of nicotine dependence
CPT/HCPCS: 36415; 71046; 80053; 83735; 84484; 85025; 85380; 85610; 85730; 93005; 99284; A9270

== ENCOUNTER 2024-09-24 07:50 | Outpatient (CLI) | payer OTHER, SELFPAY ==
--- NOTE | ~2024-09-24 | MMUS_ITS ---
EXAMINATION: MM diagnostic mercedes BI w nisha, US breast RT complete HISTORY: Personal history of bilateral breast biopsies yielding benign results. Visualized abnormalit y within the lower outer quadrant of the right breast. TECHNIQUE: 3-D tomosynthesis images of the bilateral breasts were performed and synthetic 2-D images were generated. CAD analysis was submitted and interpreted. COMPARISON: 02/04/2024 and dating back to 04/15/2019. BREAST PARENCHYMAL COMPOSITION:Dense: The breasts are heterogeneously dense, which may obscure small masses. FINDINGS: MAMMOGRAPHIC FINDINGS: Within the area of clinical concern, no discrete mammographic or tomographic abnormality is appreciat ed. Indeterminate parenchymal pattern within the upper inner quadrant of the right breast. ULTRASOUND: At the 2:00 position of the right breast approximately 10 cm from the nipple is a well-circumscribed anechoic, avascular focus consistent with a simple cyst for which no further follow-up is needed. Within the area of clinical concern, no discrete sonographic abnormality is appreciated. IMPRESSION: Simple cyst at the 2:00 position of the right breast approximately 10 cm from the nipple, for which no further follow-up is needed. No mammographic or sonographic abnormality is identified within the lower outer quadrant of the right breast to correspond to the area of clinical concern. Sonographic evaluation of the remainder of the right breast demonstrates benign fibroglandular resul ts without a cystic or solid lesion of concern. BI-RADS Category 2: Benign finding(s). Reviewed, dictated and finalized at location A. INE STEAK TENDERIZER IMPRESSION: Simple cyst at the 2:00 position of the right breast approximately 10 cm from the nipple, for which no further follow-up is needed. No mammographic or sonographic abnormality is identified within the lower outer quadrant of the right breast to correspond to the area of clinical concern. Sonographic evaluation of the remainder of the right breast demonstrates benig n fibroglandular results without a cystic or solid lesion of concern. BI-RADS Category 2: Benign finding(s).
== END 2024-09-24 07:51 | disposition home or self-care (01) ==
LOC: MICIMG 07:50
PROVIDERS: PCP Family Medicine; Visit Provider Obstetrics & Gynecology
DX: R92.8 Other abnormal and inconclusive findings on diagnostic imaging of breast (principal)
CPT/HCPCS: 76641; 77062; 77066; G0279

== ENCOUNTER 2024-10-19 17:01 | Emergency (ER) | payer OTHER, SELFPAY ==
[2024-10-19 17:11] VITALS: BP 124/85; PULSE 70; RESP 16; TEMP 36.5; O2SAT 99
--- NOTE | 2024-10-19 17:26 | ED.URI ---
HPI - URI/Sore Throat General Chief Complaint: Ear Stated Complaint: sore throat left ear pain/drainage Time Seen by Provider: 10/19/24 17:27 Source: patient, RN notes reviewed and old records reviewed Mode of arrival: ambulatory Limitations: no limitations History of Present Illness HPI Narrative: 39-year-old female presents to the [facility] with complaints of a sore throat and left ear discomfort. Reports drainage Related Data Home Medications ?Medication ?Instructions ?Recorded ?Confirmed ?Last Taken ?Type lisinopril 10 mg tablet 10 mg PO DAILY 10/11/22 09/27/24 12/23/23 History multivitamin 1 tablet PO DAILY 12/22/23 09/27/24 12/20/23 History buspirone 15 mg tablet 15 mg PO BID 12/30/23 09/27/24 Unknown History cyclobenzaprine 10 mg tablet 10 mg PO DAILY 03/11/24 09/27/24 Unknown History omega-3 fatty acids 1,000 mg 1,000 mg PO DAILY 04/22/24 09/27/24 Unknown History capsule estradiol 0.01% (0.1 mg/gram) vaginal 09/27/24 09/27/24 Unknown History vaginal cream estradiol 1 mg tablet mg PO 09/27/24 09/27/24 Unknown History Allergies Allergy/AdvReac Type Severity Reaction Status Date / Time sulfamethoxazole (From Allergy Severe Rash Verified 09/27/24 11:25 Bactrim) trimethoprim (From Bactrim) Allergy Severe Rash Verified 09/27/24 11:25 amlodipine Allergy Unknown peripheral Verified 09/27/24 11:25 edema promethazine Allergy Unknown Skin Verified 09/27/24 11:25 Reaction nirmatrelvir (From Paxlovid) AdvReac Severe cardiac Verified 09/27/24 11:25 ritonavir (From Paxlovid) AdvReac Severe cardiac Verified 09/27/24 11:25 latex AdvReac Itching Verified 09/27/24 11:25 neomycin, polymyxin and AdvReac Intermediate Other Uncoded 09/27/24 11:25 hydrocortisone otic drops Review of Systems Review of Systems: All systems reviewed & are unremarkable except as noted in HPI and below Constitutional: Constitutional: Reports no additional constitutional complaints ENT: Reports as per HPI, Reports otalgia and Reports sore throat (Left side) Cardiovascular: Cardiovascular: Reports no additional cardiovascular complaints, Denies chest pain and Denies dyspnea Respiratory: Respiratory: Reports no additional respiratory complaints, Denies chest congestion, Denies cough and Denies dyspnea Musculoskeletal: Musculoskeletal: Reports no additional musculoskeletal complaints Integumentary/Breasts: Skin/Breast: Reports system reviewed and no additional complaints, except as docu COUNT INCLUDES THE [facility] Past Medical History Medical History Endometriosis seen on rachel/bso path 2023 Otitis externa of left ear Otorrhea, left ear Fungal otitis externa Chest wall pain Otorrhea, left ear Nasal congestion Prediabetes 3.9.22 hgba1c 5.9 COVID Bruxism Otalgia of both ears Ear itching IBS (irritable bowel syndrome) Otitis externa of right ear Esophageal reflux Benign essential hypertension Acute gastritis Fibromyalgia PVC (premature ventricular contraction) Panic disorder without agoraphobia Surgical History Surgical History S/P [facility]-O 3.27.24 History of placement of ear tubes H/O wisdom tooth extraction H/O dilation and curettage H/O: section Hx of cholecystectomy Family History Family History Other Cerebrovascular accident Diabetes mellitus Family history of malignant neoplasm Hypertension Social History Social History Smoking packs per day: 1 Smoking cigarettes per day: 20.0 Years smoked: 5 Smoking pack-years: 5.00 Smoking status: Former smoker Alcohol intake: never Alcohol use details: occasionally Substance use: never Substance use type: marijuana Other substance usage details: EDIBLES Do You Feel Safe in your Home?: Yes Lack of Transportation: No Lack of Food: Never True Current Housing: I Have Housing Concerned About Future Housing: No Difficulty Paying Gas/Electric Bills: No Difficulty Paying for Meds: No Currently Unemployed: No Education: Bachelor's Degree Difficulty w/ Childcare or Family Care: No Living arrangements: with family Spiritual care concerns: No Comments At the time of my signature, I reviewed and agree with the nursing past medical, surgical, social, and family history. There is no relevant family history pertinent to the patient complaint. Exam Const: General: cooperative, healthy appearing, comfortable, no acute distress, well developed, alert and well nourished Nutritional Appearance: well nourished and obese Orientation/consciousness: patient oriented x3 Limitations: no limitations HENMT: Head: normal to inspection Ears: TM normal on the right, mastoids normal, no periauricular adenopathy, Abnormal EAC present otic discharge purulent and TM abnormal erythematous and other (Tube in place, purulent drainage) Mouth: Yes Normal oral and palatal mucosa present, Yes lip normal, Yes tongue normal and Yes moist mucous membranes Throat: posterior oropharynx normal, uvula midline and no uvular edema Eyes: General: appearance normal, both eyes and all related structures Alignment and Position: alignment normal Neck: Neck: normal visual inspection, full ROM, no lymphadenopathy and no meningeal signs Chest: Chest palpation & inspection: normal inspection of the chest Resp: Effort & Inspection: normal respiratory effort and able to speak in complete sentences Auscultation: clear to auscultation bilaterally, no crackles, no rales, no rhonchi and no wheezes Cardio: Rate: regular rate Skin: General skin exam: normal color and no rashes or lesions noted Neuro: General: patient oriented x3, gait normal, moves all extremities and no meningeal signs Cognition (Neuro): normal cognition Speech: normal speech Gait exam (Neuro): Normal gait present Extrem: General: normal to inspection, full ROM, capillary refill normal and normal gait Psych: Appearance: grossly normal and well kempt Mental Status: mental status grossly normal Speech and movement: Normal speech and movement present and Clear speech present Affect: normal affect Attitude: cooperative Course Course Level of Care: Express Care Visit Vital Signs Vital signs: Vital Signs Temperature 97.7 F 10/19/24 17:11 Pulse Rate 70 10/19/24 17:11 Respiratory Rate 16 10/19/24 17:11 Blood Pressure 124/85 10/19/24 17:11 Pulse Oximetry 99 10/19/24 17:11 Oxygen Delivery Room Air 10/19/24 17:11 Temperature 97.7 F 10/19/24 17:11 Pulse Rate 70 10/19/24 17:11 Respiratory Rate 16 10/19/24 17:11 Blood Pressure 124/85 10/19/24 17:11 Pulse Oximetry 99 10/19/24 17:11 Oxygen Delivery Room Air 10/19/24 17:11 Reviewed MDM - URI/Sore Throat MDM Narrative Medical decision making narrative: Patient sitting comfortably in exam room. Nontoxic, vitals stable. Patient in no acute distress. Patient presents with left ear drainage. Erythema, purulent drainage noted from to. Patient appropriate for outpatient treatment of otitis media with close follow Discharge instructions reviewed with patient, as well as provided in writing per nursing staff. The instructions also include specific and strict return/GO TO THE ER as well as f/u information. All questions have been answered, and the patient deny any further questions with discharge and discharge plan. Some parts of this dictation were generated by voice recognition software and may contain typographical and/or grammatical inaccuracies. Differential Diagnosis Differential diagnosis: Likely upper respiratory infection, otitis media and sinusitis Critical Care Time Critical Care Time Critical Care Time: No Discharge Plan Discharge Clinical Impression: Acute left otitis media Patient Disposition: Home, Self-Care Condition: Stable Instructions: Antibiotic Form, Ear Infection (AC) Additional Instructions: Take antibiotic as prescribed Follow-up with primary care provider Follow-up with ENT For new or worsening symptoms go directly to the emergency room Patient Language: Czech Prescriptions: New amoxicillin 875 mg tablet 875 mg PO Q12H Qty: 20 0RF ciprofloxacin HCl 0.3 % drops See Rx Instructions EACH EYE .COMPLEX Qty: 2.5 0RF Rx Instructions: Place 4 drops in left ear twice daily for 5 days No Action lisinopril 10 mg tablet 10 mg PO DAILY Rx Instructions: HAS NOT BEEN TAKING PAST COUPLE WEEK BP LOW albuterol sulfate [Ventolin HFA] 90 mcg/actuation HFA aerosol inhaler 2 puff inhalation QID PRN (Reason: shortness of breath or wheezing) Qty: 8.5 0RF cyclobenzaprine 10 mg tablet 10 mg PO DAILY estradiol 1 mg tablet PO estradiol 0.01 % (0.1 mg/gram) cream vaginal sucralfate [Carafate] 1 gram tablet 1 g PO TID PRN (Reason: acid reflux) Qty: 45 1RF pantoprazole 40 mg tablet,delayed release (DR/EC) 40 mg PO BID Qty: 180 1RF Nurtec ODT 75 mg tablet,disintegrating 75 mg PO ONCE PRN (Reason: migraine headache) Qty: 14 0RF Rx Instructions: as a single dose alprazolam 0.25 mg tablet 0.25 mg PO BID PRN (Reason: anxiety) Qty: 20 1RF buspirone 15 mg tablet 15 mg PO BID Rx Instructions: orally;1.5 q a.m,2 po q p.m. ondansetron 4 mg tablet,disintegrating 4 mg PO Q8H PRN (Reason: nausea and vomiting) Qty: 10 0RF multivitamin Tablet 1 tablet PO DAILY clobetasol 0.05 % solution See Rx Instructions .ROUTE .COMPLEX Qty: 50 0RF Dose Instruction: APPLY TOPICALLY TO THE AFFECTED AREA DAILY Rx Instructions: APPLY TOPICALLY TO THE AFFECTED AREA DAILY metoprolol succinate 50 mg tablet extended release 24 hr 150 mg PO DAILY Qty: 90 5RF omega-3 fatty acids 1,000 mg capsule 1,000 mg PO DAILY Savella 50 mg tablet See Rx Instructions .ROUTE .COMPLEX Qty: 60 3RF Dose Instruction: TAKE 1 TABLET BY MOUTH TWICE DAILY Rx Instructions: TAKE 1 TABLET BY MOUTH TWICE DAILY sumatriptan succinate 25 mg tablet See Rx Instructions PO .COMPLEX Qty: 14 0RF Rx Instructions: take 1 tab at onset of headache; if no relief may repeat 1 tab after at least 2 hrs; max = 4 tabs/24 hr PO gabapentin 300 mg capsule 300 mg PO TID Qty: 90 1RF hyoscyamine sulfate 0.125 mg tablet See Rx Instructions .ROUTE .COMPLEX Qty: 30 5RF Dose Instruction: TAKE 1 TABLET BY MOUTH FOUR TIMES DAILY Rx Instructions: TAKE 1 TABLET BY MOUTH FOUR TIMES DAILY triamterene-hydrochlorothiazid 37.5-25 mg tablet 1 tablet PO DAILY Qty: 90 1RF metformin 500 mg tablet extended release 24 hr 500 mg PO BID Qty: 180 1RF Follow-up/Referrals: Deedee Long MD [Primary Care Provider] - 2 Weeks (express care follow up ) Stand Alone Forms: Work/School Release IP Time of Disposition: 17:41
== END 2024-10-19 17:45 | disposition home or self-care (01) ==
PROVIDERS: Emergency Provider Nurse Practitioner; PCP Family Medicine
DX: H66.92 Otitis media, unspecified, left ear (principal); Z87.891 Personal history of nicotine dependence; F12.90 Cannabis use, unspecified, uncomplicated; R73.03 Prediabetes; I10 Essential (primary) hypertension; N80.9 Endometriosis, unspecified; M79.7 Fibromyalgia; K21.9 Gastro-esophageal reflux disease without esophagitis; Z86.16 Personal history of COVID-19
CPT/HCPCS: 99213; G0463

== ENCOUNTER 2024-10-22 00:30 | Emergency (ER) | payer OTHER, SELFPAY ==
--- NOTE | ~2024-10-22 | CT_ITS ---
EXAMINATION: CT IAC/mastoids BI w con DATE: 10/22/2024 06:40 INDICATION: Left ear infection. TECHNIQUE: Computed tomography (CT) of the temporal bones was performed without intravenous contrast. Automated exposure control and iterative reconstruction technique were employed. The dose-length pro duct was 447.86 mGy-cm. COMPARISON: Head CT 08/13/2024 FINDINGS: RIGHT TEMPORAL BONE: The internal auditory canal, cochlea, vestibule, semicircular canals, vestibular aqueduct, carotid ca nal, jugular bulb, facial nerve course, ossicles, Prussak space, scutum, tympanic membrane, and exter nal auditory canal are normal. There is a trace mastoid effusion. LEFT TEMPORAL BONE: The internal auditory canal, cochlea, vestibule, semicircular canals, vestibular aqueduct, carotid ca nal, and jugular bulb are normal. There is near complete opacification of the tympanic cavity with sh allow erosions of bone. There is a mastoid effusion. There is complete opacification of the external auditory canal. IMPRESSION: 1. Left-sided otitis media, mastoiditis, and otitis externa. Reviewed, dictated and finalized at location [facility]. [employer]
[2024-10-22 00:34] VITALS: BP 159/98; PULSE 79; RESP 18; TEMP 36.8; O2SAT 94
[2024-10-22 03:37] VITALS: O2SAT 97
[2024-10-22 04:08] LABS: Strep Group A RT-PCR NOT DETECTED (Negative)
[2024-10-22 04:19] LABS: Influenza A QL RT-PCR Negative (Negative); Influenza B QL RT-PCR Negative (Negative); RSV RNA, RT-PCR Negative (Negative); SARS-CoV-2 RNA PCR Negative (Negative)
--- NOTE | 2024-10-22 05:24 | ED_ITS ---
HPI - General Adult General Chief complaint: Upper Respiratory Infection Stated complaint: sore throat, ear pain Time Seen by Provider: 10/22/24 05:16 History of Present Illness HPI narrative: Patient is a 39-year-old female who presents to the emergency department this morning complaining of left-sided ear pain. Patient states the pain started on Friday and she went to an urgent care and was placed on antibiotics and steroids. Patient states that she has had 2 days worth of amoxicillin along with ciprofloxacin ear drops to her left ear but states that her symptoms have only gotten worse. Patient admits that she does have history of recurrent ear infections and has had ear tubes placed secondary to this approximately 1 year ago. Patient states that the pain in her ear is now making the whole left side of her head hurt. Denies any fevers or chills. Admits to nausea but denies any vomiting episodes. Related Data Home Medications ?Medication ?Instructions ?Recorded ?Confirmed ?Last Taken ?Type lisinopril 10 mg tablet 10 mg PO DAILY 10/11/22 09/27/24 12/23/23 History multivitamin 1 tablet PO DAILY 12/22/23 09/27/24 12/20/23 History buspirone 15 mg tablet 15 mg PO BID 12/30/23 09/27/24 Unknown History cyclobenzaprine 10 mg tablet 10 mg PO DAILY 03/11/24 09/27/24 Unknown History omega-3 fatty acids 1,000 mg 1,000 mg PO DAILY 04/22/24 09/27/24 Unknown History capsule estradiol 0.01% (0.1 mg/gram) vaginal 09/27/24 09/27/24 Unknown History vaginal cream estradiol 1 mg tablet mg PO 09/27/24 09/27/24 Unknown History Allergies Allergy/AdvReac Type Severity Reaction Status Date / Time sulfamethoxazole (From Allergy Severe Rash Verified 09/27/24 11:25 Bactrim) trimethoprim (From Bactrim) Allergy Severe Rash Verified 09/27/24 11:25 amlodipine Allergy Unknown peripheral Verified 09/27/24 11:25 edema promethazine Allergy Unknown Skin Verified 09/27/24 11:25 Reaction nirmatrelvir (From Paxlovid) AdvReac Severe cardiac Verified 09/27/24 11:25 ritonavir (From Paxlovid) AdvReac Severe cardiac Verified 09/27/24 11:25 latex AdvReac Itching Verified 09/27/24 11:25 neomycin, polymyxin and AdvReac Intermediate Other Uncoded 09/27/24 11:25 hydrocortisone otic drops Review of Systems 2 Review of Systems: All systems are reviewed and are negative unless stated otherwise in the HPI. [facility] Past Medical History Medical History Endometriosis seen on rachel/bso path 2023 Otitis externa of left ear Otorrhea, left ear Fungal otitis externa Chest wall pain Otorrhea, left ear Nasal congestion Prediabetes 3.9.22 hgba1c 5.9 COVID Bruxism Otalgia of both ears Ear itching IBS (irritable bowel syndrome) Otitis externa of right ear Esophageal reflux Benign essential hypertension Acute gastritis Fibromyalgia PVC (premature ventricular contraction) Panic disorder without agoraphobia Surgical History Surgical History S/P [facility] 3.27.24 History of placement of ear tubes H/O wisdom tooth extraction H/O dilation and curettage H/O: section Hx of cholecystectomy Family History Family History Other Cerebrovascular accident Diabetes mellitus Family history of malignant neoplasm Hypertension Social History Social History Smoking packs per day: 1 Smoking cigarettes per day: 20.0 Years smoked: 5 Smoking pack-years: 5.00 Smoking status: Former smoker Alcohol intake: never Alcohol use details: occasionally Substance use: never Substance use type: marijuana Other substance usage details: EDIBLES Do You Feel Safe in your Home?: Yes Lack of Transportation: No Lack of Food: Never True Current Housing: I Have Housing Concerned About Future Housing: No Difficulty Paying Gas/Electric Bills: No Difficulty Paying for Meds: No Currently Unemployed: No Education: Bachelor's Degree Difficulty w/ Childcare or Family Care: No Living arrangements: with family Spiritual care concerns: No Exam 2 Narrative: General: Alert, awake, afebrile, in no acute distress. HEENT: PERRL, no rhinorrhea, no post nasal drip, pain with left pinna manipulation, yellow drainage noted in the left ear canal, able to visualize tympanic membrane on the left side, tenderness to palpation over the mastoid region, no ear proptosis. Neck: Trachea midline, no JVD, no lymphadenopathy. Cardiovascular: Regular rate and rhythm, no murmurs, rubs or gallops, no peripheral edema. Respiratory: Clear to auscultation bilaterally, no tachypnea, no wheezing, no rhonchi, no rubs, no respiratory distress. Abdomen: Soft, nontender, nondistended, no rebound, no guarding, no peritoneal signs. Musculoskeletal: No joint swelling or deformity, normal muscle tone. Skin: No rashes or petechia, no signs of infection. Psychiatric: Alert and oriented, normal behavior and judgment for situation. Neurological: Alert and oriented to person, place, and time. Follows all commands. No focal deficits, speech is clear and fluent. Course Vital Signs Vital signs: Vital Signs Temperature 98.3 F 10/22/24 00:34 Pulse Rate 79 10/22/24 00:34 Respiratory Rate 18 10/22/24 00:34 Blood Pressure 159/98 H 10/22/24 00:34 Pulse Oximetry 94 10/22/24 00:34 Oxygen Delivery Room Air 10/22/24 00:34 Temperature 98.3 F 10/22/24 00:34 Pulse Rate 81 10/22/24 05:53 Respiratory Rate 18 10/22/24 05:53 Blood Pressure 143/92 H 10/22/24 05:53 Pulse Oximetry 98 10/22/24 05:53 Oxygen Delivery Room Air 10/22/24 03:37 Medical Decision Making [facility] Narrative Medical decision making narrative: The patient was evaluated by myself in the emergency department. History is obtained from patient who is an independent historian and physical exam was performed. External medical records were reviewed at this time. IV was established and pertinent tests were ordered. Patient was administered 4 mg of IV morphine for pain and 4 mg of IV Zofran for nausea. Laboratory results obtained revealing leukocytosis of 15,000 otherwise unremarkable. Imaging studies obtained included CT mastoids without IV contrast to rule out mastoiditis. Differential diagnosis considerations include otitis media, otitis externa, mastoiditis. Comorbidities impacting this visit include history of recurrent ear infections. I have evaluated and discussed social determinants of health with the patient that could potentially impact subsequent diagnosis and treatment plans. On repeat assessment of the patient, reevaluation revealed that the patient is doing well and is in no acute distress. Patient symptoms have improved since she arrived to our emergency department. Repeat vital signs were all reviewed and noted to be stable. Differential diagnosis and treatment plan were discussed with the patient at bedside. Patient agrees with discussion and after shared medical decision making agrees with discharge. All questions were answered to the patient's satisfaction. Patient will follow up with ENT in 3-5 days. Patient was provided with strict return precautions and instructed to return to the emergency department if any new or worsening symptoms develop. The patient was discharged in stable condition. Vital Signs Vital Signs: Vital Signs Temperature 98.3 F 10/22/24 00:34 Pulse Rate 79 10/22/24 00:34 Respiratory Rate 18 10/22/24 00:34 Blood Pressure 159/98 H 10/22/24 00:34 Pulse Oximetry 94 10/22/24 00:34 Oxygen Delivery Room Air 10/22/24 00:34 Temperature 98.3 F 10/22/24 00:34 Pulse Rate 81 10/22/24 05:53 Respiratory Rate 18 10/22/24 05:53 Blood Pressure 143/92 H 10/22/24 05:53 Pulse Oximetry 98 10/22/24 05:53 Oxygen Delivery Room Air 10/22/24 03:37 Lab Data 10/22/24 05:50 10/22/24 05:50 Labs: Lab Results 10/22/24 10/22/24 Range/Units 03:36 05:50 WBC 15.0 H (4.5-10.0) K/mm3 RBC 5.23 (4.2-5.4) M/mm3 Hgb 14.7 (12.0-15.0) g/dL Hct 43.1 (37.0-47.0) % MCV 82.4 (80-100) fl MCH 28.1 (26-34) pg MCHC 34.1 (32-36) g/dl RDW 13.6 (11.5-14.5) % Plt Count 331 (150-375) k/mm3 MPV 10.3 (7.4-10.4) fl Immature Gran % (Auto) 0.3 (0-0.5) % Neut % (Auto) 67.4 (45.5-73.1) % Lymph % (Auto) 24.8 (18.3-44.2) % [place] % (Auto) 5.9 (2.6-8.5) % Eos % (Auto) 1.1 (0-4.4) % Baso % (Auto) 0.5 (0.2-1.2) % Lymph # (Auto) 3.73 H (0.9-3.2) K/mm3 [place] # (Auto) 0.9 H (0.1-0.6) K/mm3 Eos # (Auto) 0.2 (0-0.3) K/mm3 Baso # (Auto) 0.1 (0.0-0.1) K/mm3 Abs Immat Gran (auto) 0.05 H (0.00-0.031) K/mm3 Absolute Neuts (auto) 10.1 H (1.3-6.7) K/mm3 Absolute Nucleated RBC 0.000 (0.0-0.012) K/mm3 Nucleated RBC % 0.0 (0.0-0.2) % Sodium 136 L (137-145) mmol/L Potassium 3.5 (3.4-5.0) mmol/L Chloride 99 (98-107) mmol/L Carbon Dioxide 24 (22-30) mmol/L Anion Gap 13 H (4-12) mmol/L BUN 16 (7-17) mg/dL Creatinine 0.88 (0.7-1.0) mg/dL Estim Creat Clear Calc 98 ml/min Estimated GFR > 60 (59 - ) Glucose 110 (65-110) mg/dL Calcium 9.3 (8.4-10.2) mg/dL Magnesium 1.8 (1.6-2.3) mg/dL Total Bilirubin 0.9 (0.2-1.3) mg/dL AST 24 (14-36) U/L ALT 35 (6-35) U/L Alkaline Phosphatase 63 (38-126) U/L Total Protein 7.0 (6.3-8.2) g/dL Albumin 4.2 (3.5-5.1) g/dL Influenza A (RT-PCR) Negative (Negative) Influenza B (RT-PCR) Negative (Negative) RSV (RT-PCR) Negative (Negative) SARS-CoV-2 RNA (RT-PCR) Negative (Negative) Group A Strep (PCR) Not detected (Negative) Discharge Plan Discharge Clinical Impression: Acute left otitis media, Left otitis externa, Leukocytosis Patient Disposition: Home, Self-Care Condition: Improved Instructions: Antibiotic Form, Ear Infection (ED) Additional Instructions: Please follow-up with the ENT physician you were provided with today within the next 3-5 days. Continue taking the antibiotics that you were prescribed. Use ibuprofen as needed for pain. Return to the emergency department if any new or worsening symptoms develop. Patient Language: Faroese Prescriptions: No Action lisinopril 10 mg tablet 10 mg PO DAILY Rx Instructions: HAS NOT BEEN TAKING PAST COUPLE WEEK BP LOW amoxicillin 875 mg tablet 875 mg PO Q12H Qty: 20 0RF ciprofloxacin HCl 0.3 % drops See Rx Instructions EACH EYE .COMPLEX Qty: 2.5 0RF Rx Instructions: Place 4 drops in left ear twice daily for 5 days albuterol sulfate [Ventolin HFA] 90 mcg/actuation HFA aerosol inhaler 2 puff inhalation QID PRN (Reason: shortness of breath or wheezing) Qty: 8.5 0RF cyclobenzaprine 10 mg tablet 10 mg PO DAILY estradiol 1 mg tablet PO estradiol 0.01 % (0.1 mg/gram) cream vaginal sucralfate [Carafate] 1 gram tablet 1 g PO TID PRN (Reason: acid reflux) Qty: 45 1RF pantoprazole 40 mg tablet,delayed release (DR/EC) 40 mg PO BID Qty: 180 1RF Nurtec ODT 75 mg tablet,disintegrating 75 mg PO ONCE PRN (Reason: migraine headache) Qty: 14 0RF Rx Instructions: as a single dose alprazolam 0.25 mg tablet 0.25 mg PO BID PRN (Reason: anxiety) Qty: 20 1RF buspirone 15 mg tablet 15 mg PO BID Rx Instructions: orally;1.5 q a.m,2 po q p.m. ondansetron 4 mg tablet,disintegrating 4 mg PO Q8H PRN (Reason: nausea and vomiting) Qty: 10 0RF multivitamin Tablet 1 tablet PO DAILY clobetasol 0.05 % solution See Rx Instructions .ROUTE .COMPLEX Qty: 50 0RF Dose Instruction: APPLY TOPICALLY TO THE AFFECTED AREA DAILY Rx Instructions: APPLY TOPICALLY TO THE AFFECTED AREA DAILY metoprolol succinate 50 mg tablet extended release 24 hr 150 mg PO DAILY Qty: 90 5RF omega-3 fatty acids 1,000 mg capsule 1,000 mg PO DAILY Savella 50 mg tablet See Rx Instructions .ROUTE .COMPLEX Qty: 60 3RF Dose Instruction: TAKE 1 TABLET BY MOUTH TWICE DAILY Rx Instructions: TAKE 1 TABLET BY MOUTH TWICE DAILY sumatriptan succinate 25 mg tablet See Rx Instructions PO .COMPLEX Qty: 14 0RF Rx Instructions: take 1 tab at onset of headache; if no relief may repeat 1 tab after at least 2 hrs; max = 4 tabs/24 hr PO gabapentin 300 mg capsule 300 mg PO TID Qty: 90 1RF hyoscyamine sulfate 0.125 mg tablet See Rx Instructions .ROUTE .COMPLEX Qty: 30 5RF Dose Instruction: TAKE 1 TABLET BY MOUTH FOUR TIMES DAILY Rx Instructions: TAKE 1 TABLET BY MOUTH FOUR TIMES DAILY triamterene-hydrochlorothiazid 37.5-25 mg tablet 1 tablet PO DAILY Qty: 90 1RF metformin 500 mg tablet extended release 24 hr 500 mg PO BID Qty: 180 1RF prednisone 20 mg tablet 20 mg PO DAILY Qty: 14 1RF Rx Instructions: take 1 tablet daily with breakfast for 10 days and then take 1 tablet every other day for 8 days and then stop Follow-up/Referrals: Kayden Eng MD [Physician] - 3 Days Deedee Long MD [Primary Care Provider] -
[2024-10-22] MEDS: ONDANSETRON INJ 4 MG/2 ML VIAL IV PUSH (05:44)
[2024-10-22] MEDS: MORPHINE SULFATE (*CRX) 4 MG/ML INJ IV PUSH (05:44)
[2024-10-22 05:53] VITALS: BP 143/92; PULSE 81; RESP 18; O2SAT 98
[2024-10-22 06:00] LABS: Basophils Absolute Auto 0.1 K/mm3 (0.0-0.1); Basophils Percent Auto 0.5 % (0.2-1.2); Eosinophils Absolute Auto 0.2 K/mm3 (0-0.3); Eosinophils Percent Auto 1.1 % (0-4.4); Hematocrit 43.1 % (37.0-47.0); Hemoglobin 14.7 g/dL (12.0-15.0); Immature Granulocyte Absolute 0.05 K/mm3 (0.00-0.031); Immature Granulocyte Percent A 0.3 % (0-0.5); Lymphocytes Absolute Auto 3.73 K/mm3 (0.9-3.2); Lymphocytes Percent Auto 24.8 % (18.3-44.2); Mean Corpuscular HGB Conc 34.1 g/dl (32-36); Mean Corpuscular Hemoglobin 28.1 pg (26-34); Mean Corpuscular Volume 82.4 fl (80-100); Mean Platelet Volume 10.3 fl (7.4-10.4); Monocytes Absolute Auto 0.9 K/mm3 (0.1-0.6); Monocytes Percent Auto 5.9 % (2.6-8.5); Neutrophils Absolute Auto 10.1 K/mm3 (1.3-6.7); Neutrophils Percent Auto 67.4 % (45.5-73.1); Platelet Count Result 331 k/mm3 (150-375); Red Blood Count 5.23 M/mm3 (4.2-5.4); Red Cell Distribution Width 13.6 % (11.5-14.5)
[2024-10-22 06:15] LABS: Alanine Aminotransferase 35 U/L (6-35); Albumin Level 4.2 g/dL (3.5-5.1); Alkaline Phosphatase 63 U/L (38-126); Anion Gap 13 mmol/L (4-12); Aspartate Amino Transferase 24 U/L (14-36); Bilirubin,Total 0.9 mg/dL (0.2-1.3); Blood Urea Nitrogen 16 mg/dL (7-17); Calcium 9.3 mg/dL (8.4-10.2); Carbon Dioxide 24 mmol/L (22-30); Chloride 99 mmol/L (98-107); Estimated CRCL calculation 98 ml/min; Estimated Glomerular Filt Rate > 60; Glucose 110 mg/dL (65-110); Magnesium 1.8 mg/dL (1.6-2.3); Potassium 3.5 mmol/L (3.4-5.0); Sodium 136 mmol/L (137-145)
[2024-10-22] MEDS: METOCLOPRAMIDE HCL INJ 10 MG/2 ML VIAL 5 MG IV PUSH (08:51)
[2024-10-22] MEDS: HYDROcodone/acetaminophen (*CRX) 5-325 MG TABLET 1 TAB PO (09:00)
== END 2024-10-22 09:18 | disposition home or self-care (01) ==
PROVIDERS: Emergency Medicine; Emergency Provider Family Medicine; PCP Family Medicine
DX: H60.92 Unspecified otitis externa, left ear (principal); H66.92 Otitis media, unspecified, left ear; D72.829 Elevated white blood cell count, unspecified; I10 Essential (primary) hypertension; K58.9 Irritable bowel syndrome, unspecified; K21.9 Gastro-esophageal reflux disease without esophagitis; M79.7 Fibromyalgia; R73.03 Prediabetes; Z86.16 Personal history of COVID-19; Z87.891 Personal history of nicotine dependence; Z90.710 Acquired absence of both cervix and uterus; Z90.79 Acquired absence of other genital organ(s); Z90.722 Acquired absence of ovaries, bilateral; Z90.49 Acquired absence of other specified parts of digestive tract; H70.92 Unspecified mastoiditis, left ear
CPT/HCPCS: 36415; 70481; 80053; 83735; 85025; 87637; 87651; 96374; 96375; 99284; A9270; J2270; J2405; J2765; Q9967

== ENCOUNTER 2024-11-26 09:45 | Emergency (ER) | payer OTHER, SELFPAY ==
[2024-11-26] VITALS (8 sets, daily range): BP systolic 92–168; BP diastolic 51–97; PULSE 70–86; RESP 16–18; TEMP 36.6–36.9; O2SAT 93–98
--- NOTE | 2024-11-26 11:25 | ED.GENADULT ---
HPI - General Adult General Chief complaint: Eye Problems Stated complaint: eye pain/pressure Time Seen by Provider: 11/26/24 11:25 Source: patient Mode of arrival: ambulatory Limitations: no limitations History of Present Illness HPI narrative: 39 YEARS OLD WHITE FEMALE NEW CAME TO THE ED BY PRIVATE CAR WITH PAIN BEHIND AND IN FRONT OF THE LEFT EAR, HISTORY OF MASTOIDITIS FOR OVER 2 MONTHS, STATUS POST COURSE OF AMOXICILLIN FOR 7 DAYS, AUGMENTIN FOR 21 DAYS AND STARTED ON LEVAQUIN 5 DAYS AGO. PATIENT REPORTS SOME CHILLS, THE PAIN AT THE MASTOID AREA RADIATING TO BEHIND THE LEFT EYE AND LEFT FOREHEAD AND DOWN SHOOTING TO THE LEFT SIDE OF THE NECK. PATIENT REPORTS SOME TINGLING FEELING IN THE LEFT FACE. PATIENT IS TELLING ME THAT SHE IS PRONE TO MIGRAINE HEADACHE AND SINUS INFECTION. CURRENTLY ON FLONASE, EXCEDRIN AND REGLAN FOR NAUSEA AND INTERMITTENT VOMITING. PATIENT WAS SEEN BY CHIROPRACTOR YESTERDAY. HISTORY OF ANXIETY AND DEPRESSION AND MIGRAINE HEADACHE Related Data Home Medications ?Medication ?Instructions ?Recorded ?Confirmed ?Last Taken ?Type lisinopril 10 mg tablet 10 mg PO DAILY 10/11/22 11/02/24 12/23/23 History multivitamin 1 tablet PO DAILY 12/22/23 11/02/24 12/20/23 History buspirone 15 mg tablet 15 mg PO BID 12/30/23 11/02/24 Unknown History cyclobenzaprine 10 mg tablet 10 mg PO DAILY 03/11/24 11/02/24 Unknown History omega-3 fatty acids 1,000 mg 1,000 mg PO DAILY 04/22/24 11/02/24 Unknown History capsule estradiol 0.01% (0.1 mg/gram) vaginal 09/27/24 11/02/24 Unknown History vaginal cream estradiol 1 mg tablet mg PO 09/27/24 11/02/24 Unknown History ciprofloxacin 0.3 %-dexamethasone drp LEFT EAR 11/02/24 11/02/24 Unknown History 0.1 % ear drops,suspension duloxetine 20 mg capsule,delayed mg PO 11/02/24 11/02/24 Unknown History release Allergies Allergy/AdvReac Type Severity Reaction Status Date / Time sulfamethoxazole (From Allergy Severe Rash Verified 11/02/24 08:15 Bactrim) trimethoprim (From Bactrim) Allergy Severe Rash Verified 11/02/24 08:15 amlodipine Allergy Unknown peripheral Verified 11/02/24 08:15 edema promethazine Allergy Unknown Skin Verified 11/02/24 08:15 Reaction nirmatrelvir (From Paxlovid) AdvReac Severe cardiac Verified 11/02/24 08:15 ritonavir (From Paxlovid) AdvReac Severe cardiac Verified 11/02/24 08:15 latex AdvReac Itching Verified 11/02/24 08:15 neomycin, polymyxin and AdvReac Intermediate Other Uncoded 11/02/24 08:15 hydrocortisone otic drops Review of Systems Review of Systems: All systems reviewed & are unremarkable except as noted in HPI and below PMFSH Past Medical History Medical History Endometriosis seen on rachel/bso path 2023 Otitis externa of left ear Otorrhea, left ear Fungal otitis externa Chest wall pain Otorrhea, left ear Nasal congestion Prediabetes 3.9.22 hgba1c 5.9 COVID Bruxism Otalgia of both ears Ear itching IBS (irritable bowel syndrome) Otitis externa of right ear Esophageal reflux Benign essential hypertension Acute gastritis Fibromyalgia PVC (premature ventricular contraction) Panic disorder without agoraphobia Surgical History Surgical History S/P [facility] 3.27.24 History of placement of ear tubes H/O wisdom tooth extraction H/O dilation and curettage H/O: section Hx of cholecystectomy Family History Family History Other Cerebrovascular accident Diabetes mellitus Family history of malignant neoplasm Hypertension Social History Social History Smoking packs per day: 1 Smoking cigarettes per day: 20.0 Years smoked: 5 Smoking pack-years: 5.00 Smoking status: Former smoker Alcohol intake: never Alcohol use details: occasionally Substance use: never Substance use type: marijuana Other substance usage details: EDIBLES Do You Feel Safe in your Home?: Yes Lack of Transportation: No Lack of Food: Never True Current Housing: I Have Housing Concerned About Future Housing: No Difficulty Paying Gas/Electric Bills: No Difficulty Paying for Meds: No Currently Unemployed: No Education: Bachelor's Degree Difficulty w/ Childcare or Family Care: No Living arrangements: with family Spiritual care concerns: No Exam Narrative: GENERAL APPEARANCE: WELL-DEVELOPED, WELL-NOURISHED SKIN: NORMAL COLOR HEAD: NORMOCEPHALIC, NONTRAUMATIC EYES: CLEAR CONJUNCTIVA ENT: OROPHARYNX NORMAL, EARS NORMAL, NOSE NORMAL LEFT EAR EXAM SHOWING A TYMPANIC TUBE IN PLACE, TENDERNESS AND SLIGHT SWELLING LEFT PAROTID GLAND, TENDERNESS LEFT MASTOID NO ERYTHEMA NO WARMTH NECK: SUPPLE, NONTENDER CHEST AND RESPIRATORY: AIRWAY PATENT, NO RESPIRATORY DISTRESS, NO ACCESSORY MUSCLE USE HEART: REGULAR RATE/RHYTHM ABDOMEN: SOFT, NONTENDER, NO ORGANOMEGALY, QUIET BOWEL SOUNDS VASCULAR: NORMAL PERIPHERAL PULSES, NORMAL CAPILLARY REFILL. MUSCULOSKELETAL: NORMAL RANGE OF MOTION, NONTENDER BACK NEUROLOGIC: ALERT AND ORIENTED ?3, HOSPITAL CLEANER IS NORMAL TESTED, NO GROSS MOTOR DEFICIT Course Vital Signs Vital signs: Vital Signs Temperature 36.6 C 11/26/24 09:52 Pulse Rate 80 11/26/24 09:52 Respiratory Rate 18 11/26/24 09:52 Blood Pressure 150/97 H 11/26/24 09:52 Pulse Oximetry 97 11/26/24 09:52 Temperature 36.9 C 11/26/24 15:40 Pulse Rate 86 11/26/24 15:40 Respiratory Rate 16 11/26/24 15:40 Blood Pressure 132/88 11/26/24 15:40 Pulse Oximetry 97 11/26/24 15:40 Medical Decision Making [facility] Narrative Medical decision making narrative: PATIENT CAME WITH LEFT SIDE FACE, MASTOID, EAR, NECK PAIN FOR A WHILE VITAL SIGNS ARE STABLE PHYSICAL EXAMINATION SHOWING TENDERNESS LEFT MASTOID LEFT PAROTID, 127 [address] PATIENT DIFFERENTIAL DIAGNOSIS INCLUDE MASTOIDITIS, PAROTITIS, TMJ BLOOD WORKUP TODAY INCLUDES CBC, CMP, SED RATE SHOWED NO SIGNIFICANT ABNORMALITIES URINALYSIS SHOWED NO EVIDENCE OF INFECTION CT HEAD WITHOUT CONTRAST SHOWED NO ACUTE ABNORMALITY CT PAROTID GLAND WITH CONTRAST SHOWED NO ACUTE ABNORMALITY CHEST X-RAY SHOWED NO ACUTE ABNORMALITIES DIAGNOSIS: MASTOIDITIS, ANXIETY/DEPRESSION, MIGRAINE HEADACHE THE PT WAS DISCHARGED TO HOME.THE PT,S CONDITION UPON DISCHARGE WAS FAIR,EDUCATION WAS PROVIDED TO THE PT IN REFERENCE TO THE FINAL IMPRESSION,DISCHARGE STUDY RESULTS,TREATMENT,PROGNOSIS AND NEED FOR FOLLOW UP . Vital Signs Vital Signs: Vital Signs Temperature 36.6 C 11/26/24 09:52 Pulse Rate 80 11/26/24 09:52 Respiratory Rate 18 11/26/24 09:52 Blood Pressure 150/97 H 11/26/24 09:52 Pulse Oximetry 97 11/26/24 09:52 Temperature 36.9 C 11/26/24 15:40 Pulse Rate 86 11/26/24 15:40 Respiratory Rate 16 11/26/24 15:40 Blood Pressure 132/88 11/26/24 15:40 Pulse Oximetry 97 11/26/24 15:40 Lab Data 11/26/24 11:42 11/26/24 11:42 Labs: Lab Results 11/26/24 11/26/24 Range/Units 11:42 12:27 WBC 7.3 (4.5-10.0) K/mm3 RBC 5.08 (4.2-5.4) M/mm3 Hgb 14.1 (12.0-15.0) g/dL Hct 41.6 (37.0-47.0) % MCV 81.9 (80-100) fl MCH 27.8 (26-34) pg MCHC 33.9 (32-36) g/dl RDW 13.7 (11.5-14.5) % Plt Count 291 (150-375) k/mm3 MPV 9.9 (7.4-10.4) fl Immature Gran % (Auto) 0.4 (0-0.5) % Neut % (Auto) 57.4 (45.5-73.1) % Lymph % (Auto) 32.1 (18.3-44.2) % Johnson % (Auto) 6.1 (2.6-8.5) % Eos % (Auto) 2.9 (0-4.4) % Baso % (Auto) 1.1 (0.2-1.2) % Lymph # (Auto) 2.35 (0.9-3.2) K/mm3 Johnson # (Auto) 0.5 (0.1-0.6) K/mm3 Eos # (Auto) 0.2 (0-0.3) K/mm3 Baso # (Auto) 0.1 (0.0-0.1) K/mm3 Abs Immat Gran (auto) 0.03 (0.00-0.031) K/mm3 Absolute Neuts (auto) 4.2 (1.3-6.7) K/mm3 Absolute Nucleated RBC 0.000 (0.0-0.012) K/mm3 Nucleated RBC % 0.0 (0.0-0.2) % ESR 9 (0-20) mm/hr Sodium 137 (137-145) mmol/L Potassium 3.5 (3.4-5.0) mmol/L Chloride 102 (98-107) mmol/L Carbon Dioxide 24 (22-30) mmol/L Anion Gap 11 (4-12) mmol/L BUN 10 D (7-17) mg/dL Creatinine 0.74 (0.7-1.0) mg/dL Estim Creat Clear Calc 115 ml/min Estimated GFR > 60 (59 - ) Glucose 126 H (65-110) mg/dL Calcium 9.1 (8.4-10.2) mg/dL Total Bilirubin 1.0 (0.2-1.3) mg/dL AST 34 (14-36) U/L ALT 51 H (6-35) U/L Alkaline Phosphatase 45 (38-126) U/L Total Protein 7.0 (6.3-8.2) g/dL Albumin 4.0 (3.5-5.1) g/dL TSH 2.650 (0.465-4.680) uIU/mL Urine Color Yellow (Yellow) Urine Appearance Clear (Clear) Urine pH 6.5 (5.0-9.0) Ur Specific [place] 1.008 (1.001-1.035) Urine Protein Negative (Negative) mg/dL Urine Glucose (UA) Negative (Negative) mg/dL Urine Ketones Negative (Negative) mg/dL Ur Blood (Man) Negative (Negative) Urine Nitrate Negative (Negative) Urine Bilirubin Negative (Negative) Urine Urobilinogen 0.2 (<2.0) mg/dL Leukocyte Esterase Rfl Trace H (Negative) DAVIDSON/UL Urine RBC 0-2 (0-2) /hpf Urine WBC 0-5 (0-3) /hpf Ur Squamous Epith Cells None seen (Few) /hpf Urine Bacteria None seen /hpf Urine Casts 0-2 Imaging Data My impression: Impressions Head CT 11/26/24 12:17 IMPRESSION: 1. Unchanged moderate sized left mastoid effusion. 2. Normal brain. Chest X-Ray 11/26/24 12:21 IMPRESSION: 1. No acute cardiopulmonary disease. Face CT 11/26/24 13:05 IMPRESSION: 1. Left mastoid effusion. Radiologist's impression: Impressions Head CT 11/26/24 12:17 IMPRESSION: 1. Unchanged moderate sized left mastoid effusion. 2. Normal brain. Chest X-Ray 11/26/24 12:21 IMPRESSION: 1. No acute cardiopulmonary disease. Critical Care Time Critical Care Time Critical Care Time: No Discharge Plan Discharge Clinical Impression: Mastoiditis, Headache, migraine Patient Disposition: Home, Self-Care Condition: Stable Instructions: Mastoiditis (ED) Additional Instructions: RETURN IF SYMPTOMS ARE WORSENING , CALL YOUR FAMILY PHYSICIAN FOR APPOINTMENT, TAKE TYLENOL, IBUPROFEN NEEDED FOR ACHES AND PAIN, CONTINUE HOME MEDICATIONS. Patient Language: Turkmen Prescriptions: No Action lisinopril 10 mg tablet 10 mg PO DAILY Rx Instructions: HAS NOT BEEN TAKING PAST COUPLE WEEK BP LOW albuterol sulfate [Ventolin HFA] 90 mcg/actuation HFA aerosol inhaler 2 puff inhalation QID PRN (Reason: shortness of breath or wheezing) Qty: 8.5 0RF cyclobenzaprine 10 mg tablet 10 mg PO DAILY estradiol 1 mg tablet PO estradiol 0.01 % (0.1 mg/gram) cream vaginal sucralfate [Carafate] 1 gram tablet 1 g PO TID PRN (Reason: acid reflux) Qty: 45 1RF pantoprazole 40 mg tablet,delayed release (DR/EC) 40 mg PO BID Qty: 180 1RF alprazolam 0.25 mg tablet 0.25 mg PO BID PRN (Reason: anxiety) Qty: 20 1RF duloxetine 20 mg capsule,delayed release(DR/EC) PO ciprofloxacin-dexamethasone 0.3-0.1 % drops,suspension LEFT EAR buspirone 15 mg tablet 15 mg PO BID Rx Instructions: orally;1.5 q a.m,2 po q p.m. ondansetron 4 mg tablet,disintegrating 4 mg PO Q8H PRN (Reason: nausea and vomiting) Qty: 10 0RF amoxicillin-pot clavulanate 875-125 mg tablet 1 tablet PO Q12H Qty: 20 0RF multivitamin Tablet 1 tablet PO DAILY clobetasol 0.05 % solution See Rx Instructions .ROUTE .COMPLEX Qty: 50 0RF Dose Instruction: APPLY TOPICALLY TO THE AFFECTED AREA DAILY Rx Instructions: APPLY TOPICALLY TO THE AFFECTED AREA DAILY metoprolol succinate 50 mg tablet extended release 24 hr 150 mg PO DAILY Qty: 90 5RF omega-3 fatty acids 1,000 mg capsule 1,000 mg PO DAILY sumatriptan succinate 25 mg tablet See Rx Instructions PO .COMPLEX Qty: 14 0RF Rx Instructions: take 1 tab at onset of headache; if no relief may repeat 1 tab after at least 2 hrs; max = 4 tabs/24 hr PO hyoscyamine sulfate 0.125 mg tablet See Rx Instructions .ROUTE .COMPLEX Qty: 30 5RF Dose Instruction: TAKE 1 TABLET BY MOUTH FOUR TIMES DAILY Rx Instructions: TAKE 1 TABLET BY MOUTH FOUR TIMES DAILY triamterene-hydrochlorothiazid 37.5-25 mg tablet 1 tablet PO DAILY Qty: 90 1RF metformin 500 mg tablet extended release 24 hr 500 mg PO BID Qty: 180 1RF prednisone 20 mg tablet 20 mg PO DAILY Qty: 14 1RF Rx Instructions: take 1 tablet daily with breakfast for 10 days and then take 1 tablet every other day for 8 days and then stop Savella 50 mg tablet See Rx Instructions .ROUTE .COMPLEX Qty: 60 0RF Dose Instruction: TAKE 1 TABLET BY MOUTH TWICE DAILY Rx Instructions: TAKE 1 TABLET BY MOUTH TWICE DAILY gabapentin 300 mg capsule 300 mg PO TID Qty: 90 1RF Follow-up/Referrals: Deedee Long MD [Primary Care Provider] -
[2024-11-26] MEDS: SODIUM CHLORIDE 0.9% IV 1,000 ML 999 ML IV CONT (11:47)
[2024-11-26] MEDS: KETOROLAC 30 MG/ML VIAL (*BKC) IV PUSH (11:48)
[2024-11-26 11:55] LABS: Basophils Absolute Auto 0.1 K/mm3 (0.0-0.1); Basophils Percent Auto 1.1 % (0.2-1.2); Eosinophils Absolute Auto 0.2 K/mm3 (0-0.3); Eosinophils Percent Auto 2.9 % (0-4.4); Hematocrit 41.6 % (37.0-47.0); Hemoglobin 14.1 g/dL (12.0-15.0); Immature Granulocyte Absolute 0.03 K/mm3 (0.00-0.031); Immature Granulocyte Percent A 0.4 % (0-0.5); Lymphocytes Absolute Auto 2.35 K/mm3 (0.9-3.2); Lymphocytes Percent Auto 32.1 % (18.3-44.2); Mean Corpuscular HGB Conc 33.9 g/dl (32-36); Mean Corpuscular Hemoglobin 27.8 pg (26-34); Mean Corpuscular Volume 81.9 fl (80-100); Mean Platelet Volume 9.9 fl (7.4-10.4); Monocytes Absolute Auto 0.5 K/mm3 (0.1-0.6); Monocytes Percent Auto 6.1 % (2.6-8.5); Neutrophils Absolute Auto 4.2 K/mm3 (1.3-6.7); Neutrophils Percent Auto 57.4 % (45.5-73.1); Platelet Count Result 291 k/mm3 (150-375); Red Blood Count 5.08 M/mm3 (4.2-5.4); Red Cell Distribution Width 13.7 % (11.5-14.5); White Blood Count 7.3 K/mm3 (4.5-10.0)
[2024-11-26 12:16] LABS: Alanine Aminotransferase 51 U/L (6-35); Alkaline Phosphatase 45 U/L (38-126); Anion Gap 11 mmol/L (4-12); Aspartate Amino Transferase 34 U/L (14-36); Blood Urea Nitrogen 10 mg/dL (7-17); Calcium 9.1 mg/dL (8.4-10.2); Carbon Dioxide 24 mmol/L (22-30); Chloride 102 mmol/L (98-107); Estimated CRCL calculation 115 ml/min; Estimated Glomerular Filt Rate > 60; Glucose 126 mg/dL (65-110); Potassium 3.5 mmol/L (3.4-5.0); Sodium 137 mmol/L (137-145)
[2024-11-26 12:30] LABS: Erythrocyte Sedimentation Rate 9 mm/hr (0-20)
[2024-11-26 12:46] LABS: Add Urine Microscopic? YES; Appearance Urine Clear (Clear); Bacteria Urine None Seen /hpf; Bilirubin Urine Negative (Negative); Blood Urine Negative (Negative); Color Urine Yellow (Yellow); Glucose Urine UA Negative (Negative); Ketones Urine Negative (Negative); Leukocyte Esterase Ur Trace LEU/UL (Negative); Nitrate Urine Negative (Negative); Non Pathogenic Casts 0-2; Protein Urine Negative (Negative); RBC Urine 0-2 /hpf (0-2); Specific Grav Ur 1.008 (1.001-1.035); Squamous Epithelial Cell Urine None Seen /hpf (Few); Urobilinogen Urine 0.2 mg/dL (<2.0); WBC Urine 0-5 /hpf (0-3); pH Urine 6.5 (5.0-9.0)
[2024-11-26] MEDS: LORazepam INJ (*CRX) 2 MG/ML VIAL 1 MG IV PUSH (12:50)
--- NOTE | 2024-11-26 13:04 | PC.NURSE ---
Patient returned from CT scan
== END 2024-11-26 16:09 | disposition home or self-care (01) ==
PROVIDERS: Emergency Provider Emergency Medicine; PCP Family Medicine
DX: H70.92 Unspecified mastoiditis, left ear (principal); G43.909 Migraine, unspecified, not intractable, without status migrainosus; R73.03 Prediabetes; Z86.16 Personal history of COVID-19; K58.9 Irritable bowel syndrome, unspecified; I10 Essential (primary) hypertension; M79.7 Fibromyalgia; Z87.891 Personal history of nicotine dependence; Z90.710 Acquired absence of both cervix and uterus; Z90.79 Acquired absence of other genital organ(s); Z90.722 Acquired absence of ovaries, bilateral; Z90.49 Acquired absence of other specified parts of digestive tract
CPT/HCPCS: 36415; 70450; 70487; 71045; 80053; 81001; 84443; 85025; 85652; 96361; 96374; 96375; 99284; J1885; J2060; J7030; Q9967

== ENCOUNTER 2024-11-28 12:23 | Emergency (ER) | payer OTHER, SELFPAY ==
--- NOTE | 2024-11-28 12:28 | ED.URI ---
HPI - URI/Sore Throat General Chief Complaint: Dental/Oral Stated Complaint: Sore Throat Time Seen by Provider: 11/28/24 12:39 Source: patient, RN notes reviewed and old records reviewed Mode of arrival: ambulatory Limitations: no limitations History of Present Illness HPI Narrative: Patient with mastoiditis, subsequent long-term use of antibiotics, presents with complaints of feeling ?run down? and of white coating to tongue and soreness to the tongue. She reports talking increases her pain. She continues with her antibiotic therapy as prescribed. She voices no other concerns or complaints Related Data Home Medications ?Medication ?Instructions ?Recorded ?Confirmed ?Last Taken ?Type lisinopril 10 mg tablet 10 mg PO DAILY 10/11/22 11/02/24 12/23/23 History multivitamin 1 tablet PO DAILY 12/22/23 11/02/24 12/20/23 History buspirone 15 mg tablet 15 mg PO BID 12/30/23 11/02/24 Unknown History omega-3 fatty acids 1,000 mg 1,000 mg PO DAILY 04/22/24 11/02/24 Unknown History capsule estradiol 0.01% (0.1 mg/gram) vaginal 09/27/24 11/02/24 Unknown History vaginal cream estradiol 1 mg tablet mg PO 09/27/24 11/02/24 Unknown History duloxetine 20 mg capsule,delayed mg PO 11/02/24 11/02/24 Unknown History release levofloxacin 500 mg tablet mg 11/28/24 Unknown History metoprolol succinate 100 mg mg PO 11/28/24 Unknown History tablet,extended release 24 hr Allergies Allergy/AdvReac Type Severity Reaction Status Date / Time sulfamethoxazole (From Allergy Severe Rash Verified 11/28/24 12:27 Bactrim) trimethoprim (From Bactrim) Allergy Severe Rash Verified 11/28/24 12:27 amlodipine Allergy Unknown peripheral Verified 11/28/24 12:27 edema promethazine Allergy Unknown Skin Verified 11/28/24 12:27 Reaction nirmatrelvir (From Paxlovid) AdvReac Severe cardiac Verified 11/28/24 12:27 ritonavir (From Paxlovid) AdvReac Severe cardiac Verified 11/28/24 12:27 latex AdvReac Itching Verified 11/28/24 12:27 neomycin, polymyxin and AdvReac Intermediate Other Uncoded 11/28/24 12:27 hydrocortisone otic drops Review of Systems Review of Systems: All systems reviewed & are unremarkable except as noted in HPI and below Constitutional: Constitutional: Reports no additional constitutional complaints and Reports lethargy ENT: Reports system reviewed and no additional complaints, except as documented and Reports mouth pain Cardiovascular: Cardiovascular: Reports no additional cardiovascular complaints Respiratory: Respiratory: Reports no additional respiratory complaints Gastrointestinal: Gastrointestinal: Reports no additional gastrointestinal complaints [facility] Past Medical History Medical History Endometriosis seen on rachel/bso path 2023 Otitis externa of left ear Otorrhea, left ear Fungal otitis externa Chest wall pain Otorrhea, left ear Nasal congestion Prediabetes 3.9.22 hgba1c 5.9 COVID Bruxism Otalgia of both ears Ear itching IBS (irritable bowel syndrome) Otitis externa of right ear Esophageal reflux Benign essential hypertension Acute gastritis Fibromyalgia PVC (premature ventricular contraction) Panic disorder without agoraphobia Surgical History Surgical History S/P [facility] 3.27.24 History of placement of ear tubes H/O wisdom tooth extraction H/O dilation and curettage H/O: section Hx of cholecystectomy Family History Family History Other Cerebrovascular accident Diabetes mellitus Family history of malignant neoplasm Hypertension Social History Social History Smoking packs per day: 1 Smoking cigarettes per day: 20.0 Years smoked: 5 Smoking pack-years: 5.00 Smoking status: Former smoker Alcohol intake: never Alcohol use details: occasionally Substance use: never Substance use type: marijuana Other substance usage details: EDIBLES Do You Feel Safe in your Home?: Yes Lack of Transportation: No Lack of Food: Never True Current Housing: I Have Housing Concerned About Future Housing: No Difficulty Paying Gas/Electric Bills: No Difficulty Paying for Meds: No Currently Unemployed: No Education: Bachelor's Degree Difficulty w/ Childcare or Family Care: No Living arrangements: with family Spiritual care concerns: No Comments At the time of my signature, I reviewed and agree with the nursing past medical, surgical, social, and family history. There is no relevant family history pertinent to the patient complaint. Exam Const: General: cooperative, no acute distress, alert and awake Orientation/consciousness: oriented to person, oriented to place and oriented to time HENMT: Head: normal to inspection Mouth: Yes moist mucous membranes, Yes moist mucous membranes abnormal (White patches noted) and Yes tongue abnormal with white coating Resp: Effort & Inspection: normal respiratory effort and able to speak in complete sentences Auscultation: clear to auscultation bilaterally, no crackles, no rales, no rhonchi and no wheezes Cardio: Palpation: normal PMI Rate: regular rate Rhythm: regular rhythm Heart sounds: S1 normal heart sound present and S2 normal heart sound present Neuro: General: oriented to person, oriented to place and oriented to time Cranial nerves: Yes CN's II-XII intact bilaterally Psych: Appearance: grossly normal Thought process: Normal thought process present Insight: Good insight present (Psych) Judgement: Good judgement present (Psych) Course Course Level of Care: Express Care Visit Vital Signs Vital signs: Reviewed MDM - URI/Sore Throat MDM Narrative Medical decision making narrative: History and exam consistent with thrush. Negative COVID, negative flu. Start nystatin swish and swallow. She is advised to follow with primary care provider. Emergency department for new or worse symptoms. Discharge instructions reviewed with patient, as well as provided in writing per nursing staff. The instructions also include specific and strict return/GO TO THE ER as well as f/u information. All questions have been answered, and the patient deny any further questions with discharge and discharge plan. Some parts of this dictation were generated by voice recognition software and may contain typographical and/or grammatical inaccuracies. Differential Diagnosis Differential diagnosis: Likely viral infection, influenza and pharyngitis Medical Records Attestation: I reviewed the patient's medical records. Lab Data Attestation: I reviewed the patient's lab results. Discharge Plan Discharge Clinical Impression: Thrush Patient Disposition: Home, Self-Care Condition: Stable Instructions: Antibiotic Form, Oral Candidiasis (ED) Additional Instructions: Take medications as prescribed. Follow with primary care provider. Emergency department for new or worse symptoms Patient Language: Bengali Prescriptions: New nystatin 100,000 unit/mL suspension 5 ml PO QID 14 Days Qty: 280 0RF Rx Instructions: swish and spit No Action lisinopril 10 mg tablet 10 mg PO DAILY Rx Instructions: HAS NOT BEEN TAKING PAST COUPLE WEEK BP LOW metoprolol succinate 100 mg tablet extended release 24 hr PO levofloxacin 500 mg tablet estradiol 1 mg tablet PO estradiol 0.01 % (0.1 mg/gram) cream vaginal sucralfate [Carafate] 1 gram tablet 1 g PO TID PRN (Reason: acid reflux) Qty: 45 1RF pantoprazole 40 mg tablet,delayed release (DR/EC) 40 mg PO BID Qty: 180 1RF alprazolam 0.25 mg tablet 0.25 mg PO BID PRN (Reason: anxiety) Qty: 20 1RF duloxetine 20 mg capsule,delayed release(DR/EC) PO buspirone 15 mg tablet 15 mg PO BID Rx Instructions: orally;1.5 q a.m,2 po q p.m. ondansetron 4 mg tablet,disintegrating 4 mg PO Q8H PRN (Reason: nausea and vomiting) Qty: 10 0RF multivitamin Tablet 1 tablet PO DAILY metoprolol succinate 50 mg tablet extended release 24 hr 150 mg PO DAILY Qty: 90 5RF omega-3 fatty acids 1,000 mg capsule 1,000 mg PO DAILY sumatriptan succinate 25 mg tablet See Rx Instructions PO .COMPLEX Qty: 14 0RF Rx Instructions: take 1 tab at onset of headache; if no relief may repeat 1 tab after at least 2 hrs; max = 4 tabs/24 hr PO hyoscyamine sulfate 0.125 mg tablet See Rx Instructions .ROUTE .COMPLEX Qty: 30 5RF Dose Instruction: TAKE 1 TABLET BY MOUTH FOUR TIMES DAILY Rx Instructions: TAKE 1 TABLET BY MOUTH FOUR TIMES DAILY triamterene-hydrochlorothiazid 37.5-25 mg tablet 1 tablet PO DAILY Qty: 90 1RF metformin 500 mg tablet extended release 24 hr 500 mg PO BID Qty: 180 1RF Savella 50 mg tablet See Rx Instructions .ROUTE .COMPLEX Qty: 60 0RF Dose Instruction: TAKE 1 TABLET BY MOUTH TWICE DAILY Rx Instructions: TAKE 1 TABLET BY MOUTH TWICE DAILY gabapentin 300 mg capsule 300 mg PO TID Qty: 90 1RF Follow-up/Referrals: Deedee Long MD [Primary Care Provider] - Stand Alone Forms: Work/School Release IP Time of Disposition: 13:03
[2024-11-28 12:31] VITALS: BP 136/106; PULSE 77; RESP 16; TEMP 36.8; O2SAT 97
[2024-11-28 12:51] LABS: EDCOVIDSCREEN Negative (Negative); EDINFLUASCREEN Negative (Negative); EDINFLUBSCREEN Negative (Negative)
== END 2024-11-28 13:11 | disposition home or self-care (01) ==
PROVIDERS: Emergency Provider Nurse Practitioner Family; PCP Family Medicine
DX: B37.9 Candidiasis, unspecified (principal); Z20.822 Contact with and (suspected) exposure to COVID-19; Z87.891 Personal history of nicotine dependence; I10 Essential (primary) hypertension; K21.9 Gastro-esophageal reflux disease without esophagitis; M79.7 Fibromyalgia; N80.9 Endometriosis, unspecified; R73.03 Prediabetes; Z86.16 Personal history of COVID-19
CPT/HCPCS: 87426; 87804; 99213; G0463

== ENCOUNTER 2025-02-23 19:35 | Emergency (ER) | payer OTHER, SELFPAY ==
--- NOTE | ~2025-02-23 | XR_ITS ---
XR chest 2V Ordering provider: Florin Harrington APRN History: 39 years Female with . chest pain/sob/right back pain 4.5 hours nonsmoker . Comparison: None. FINDINGS: MEDIASTINUM: The cardiac silhouette is not enlarged. LUNGS: No infiltrates, effusions or pneumothorax. OTHER: No free air under the diaphragm. IMPRESSION: No acute cardiopulmonary pathology. Reviewed, dictated and finalized at location A.
[2025-02-23 19:39] VITALS: BP 123/68; PULSE 73; RESP 20; TEMP 36.2; O2SAT 99
--- NOTE | 2025-02-23 19:43 | ED.URI ---
HPI - URI/Sore Throat General Chief Complaint: Upper Respiratory Infection Stated Complaint: pain when breathing in back Time Seen by Provider: 02/23/25 19:44 Source: patient Mode of arrival: ambulatory Limitations: no limitations History of Present Illness HPI Narrative: Araceli is a 39-year-old female patient presenting to the clinic today with complaints of productive cough with yellow/green phlegm, shortness of breath, anterior chest pain, and right-sided back pain. States the symptoms started over 2 weeks ago. No known fever. She is a former smoker.. No recent travel. Chest pain and back pain occurs on respirations. Has been on estradiol vaginal cream/estradiol pill in the past but discontinued this in September. MD elicited complaint: sore throat and nasal congestion Related Data Home Medications ?Medication ?Instructions ?Recorded ?Confirmed ?Last Taken ?Type lisinopril 10 mg tablet 10 mg PO DAILY 10/11/22 02/03/25 12/23/23 History multivitamin 1 tablet PO DAILY 12/22/23 02/03/25 12/20/23 History omega-3 fatty acids 1,000 mg 1,000 mg PO DAILY 04/22/24 02/03/25 Unknown History capsule estradiol 0.01% (0.1 mg/gram) vaginal 09/27/24 02/03/25 Unknown History vaginal cream estradiol 1 mg tablet mg PO 09/27/24 02/03/25 Unknown History Allergies Allergy/AdvReac Type Severity Reaction Status Date / Time sulfamethoxazole (From Allergy Severe Rash Verified 02/23/25 19:38 Bactrim) trimethoprim (From Bactrim) Allergy Severe Rash Verified 02/23/25 19:38 amlodipine Allergy Unknown peripheral Verified 02/23/25 19:38 edema promethazine Allergy Unknown Skin Verified 02/23/25 19:38 Reaction nirmatrelvir (From Paxlovid) AdvReac Severe cardiac Verified 02/23/25 19:38 ritonavir (From Paxlovid) AdvReac Severe cardiac Verified 02/23/25 19:38 latex AdvReac Itching Verified 02/23/25 19:38 neomycin, polymyxin and AdvReac Intermediate Other Uncoded 02/23/25 19:38 hydrocortisone otic drops Review of Systems Review of Systems: Pertinent positives per HPI. Patient denies any fever, chills, rash, headache, visual changes, dizziness, palpitations, nausea, vomiting, diarrhea, constipation, abdominal pain, or any urinary issues. [facility] Past Medical History Medical History Endometriosis seen on rachel/bso path 2023 Otitis externa of left ear Otorrhea, left ear Fungal otitis externa Chest wall pain Otorrhea, left ear Nasal congestion Prediabetes 3.9.22 hgba1c 5.9 COVID Bruxism Otalgia of both ears Ear itching IBS (irritable bowel syndrome) Otitis externa of right ear Esophageal reflux Benign essential hypertension Acute gastritis Fibromyalgia PVC (premature ventricular contraction) Panic disorder without agoraphobia Surgical History Surgical History [facility] 3.27.24 History of placement of ear tubes H/O wisdom tooth extraction H/O dilation and curettage H/O: section Hx of cholecystectomy Family History Family History Other Cerebrovascular accident Diabetes mellitus Family history of malignant neoplasm Hypertension Social History Social History Smoking packs per day: 1 Smoking cigarettes per day: 20.0 Years smoked: 5 Smoking pack-years: 5.00 Smoking status: Former smoker Alcohol intake: never Alcohol use details: occasionally Substance use: never Substance use type: marijuana Other substance usage details: EDIBLES Do You Feel Safe in your Home?: Yes Lack of Transportation: No Lack of Food: Never True Current Housing: I Have Housing Concerned About Future Housing: No Difficulty Paying Gas/Electric Bills: No Difficulty Paying for Meds: No Currently Unemployed: No Education: Bachelor's Degree Difficulty w/ Childcare or Family Care: No Living arrangements: with family Spiritual care concerns: No Comments At the time of my signature, I reviewed and agree with the nursing past medical, surgical, social, and family history. There is no relevant family history pertinent to the patient complaint. Exam Narrative: General: Well-developed, morbidly obese, in no apparent distress Head: Normocephalic, atraumatic Eyes: Pupils equally round and reactive to light bilaterally, EOM intact, sclera and conjunctive clear, no discharge, lids normal Ears: TMs intact and clear, ear canals clear, no drainage, grossly hearing normal. Nose: Nares patent, no discharge, no inflammation, no sinus tenderness. Mouth: Oral pharynx without lesions or masses, good dentition, MMM. Postnasal drip Neck: Supple, trachea midline, no enlargement of anterior or posterior cervical nodes, no thyroid masses or goiter palpable. Cardio: Regular rate and rhythm, s1 and s2 normal, no murmur appreciated. Resp: Diminished in the bases otherwise clear, no rhonchi, rales, wheezing or rubs Course Course Emergency Course: Portions of this record may have been created with voice recognition software. Level of Care: Express Care Visit Vital Signs Vital signs: Vital signs reviewed MDM - URI/Sore Throat MDM Narrative Medical decision making narrative: At the time of visit patient is resting comfortably on the exam table. Patient appears to be nontoxic. Patient is not in any respiratory distress. Oxygenation is 99% on room air. She is able speak in full sentences. EKG: EKG shows normal sinus rhythm with heart rate of 69 beats per minute. Oval is 170 milliseconds, QRS durations 100 milliseconds, QT-QTC is 309-429 milliseconds, P-R-T axis is 38 -19 35 Diagnostics: Chest x-rays negative for any acute cardiopulmonary process. Plan: Discussed patient's case with Dr. Mcgraw at [place] [facility]. He feels that patient does not meet criteria for PE however they are willing to see the patient if the patient wants to be seen. Wells criteria is negative for PE. I suspect patient likely has purulent bronchitis. Prescription for albuterol inhaler, prednisone, and doxycycline was sent to the pharmacy. Supportive measures were discussed with the patient and they voiced understanding discharge instructions and agrees to treatment plan. Return precautions reviewed Well criteria for PE: 0.0?points Low risk group: 1.3% chance of PE in an ED population. Another study assigned scores <=4 as ?PE Unlikely? and had a 3% incidence of PE. Differential Diagnosis Differential diagnosis: Likely upper respiratory infection, otitis media, sinusitis, viral infection, bronchitis, influenza, pharyngitis and other (COVID) Imaging Data Radiologist's impression: ITS Impressions Chest X-Ray 02/23/25 20:31 IMPRESSION: No acute cardiopulmonary pathology. ECG Data EKG #1: Attestation: I personally reviewed and interpreted this ECG as follows: ECG completion date: 02/23/25 ECG completion time: 20:21 Interpretation: EKG shows normal sinus rhythm with a heart rate of 69 beats per minute. No ST elevation, depression, or T-wave inversion. MS interval is 170 milliseconds, QRS durations 100 milliseconds, QT-QTC is 409-429 milliseconds, P-R-T axis 38 -19 35 Discharge Plan Discharge Clinical Impression: Bronchitis Patient Disposition: Home Condition: Stable Instructions: Antibiotic Form, Acute Bronchitis (ED) Additional Instructions: EKG shows normal sinus rhythm with a heart rate of 69 beats per minute. Chest x-rays negative for any acute cardiopulmonary process. Wells criteria for PE shows you are very low risk for pulmonary embolism. Take prescription medications only as prescribed-albuterol inhaler, prednisone, and doxycycline Increase fluids and stay well hydrated Tylenol/motrin for pain/fever Flonase and OTC antihistamines as directed Vicks vapor rub to open sinuses Sinus rinses for congestion Cepacol spray, cough drops, throat lozenges, warm tea with honey/lemon, gargle salt water to soothe throat BRAT diet for diarrhea Clear liquids x 24 hours then advance as tolerated for nausea/vomiting Go to the ED if you develop a worsening in your condition- high fever not controlled by Tylenol or Motrin, dehydration, weakness, lethargy, shortness of breath, or chest pain. Follow up with your PCP in 3-5 days if symptoms persist. Patient Language: Frisian Prescriptions: New doxycycline hyclate 100 mg capsule 100 mg PO BID 7 Days Qty: 14 0RF prednisone 20 mg tablet 40 mg PO DAILY 5 Days Qty: 10 0RF albuterol sulfate 90 mcg/actuation HFA aerosol inhaler 2 puff inhalation Q4-6H PRN (Reason: shortness of breath or wheezing) 30 Days Qty: 8.5 0RF No Action lisinopril 10 mg tablet 10 mg PO DAILY Rx Instructions: HAS NOT BEEN TAKING PAST COUPLE WEEK BP LOW estradiol 1 mg tablet PO estradiol 0.01 % (0.1 mg/gram) cream vaginal clobetasol 0.05 % solution See Rx Instructions .ROUTE .COMPLEX Qty: 50 0RF Dose Instruction: APPLY TOPICALLY TO THE AFFECTED AREA DAILY Rx Instructions: APPLY TOPICALLY TO THE AFFECTED AREA DAILY triamterene-hydrochlorothiazid 37.5-25 mg tablet 1 tablet PO DAILY Qty: 90 1RF sucralfate [Carafate] 1 gram tablet 1 g PO TID PRN (Reason: acid reflux) Qty: 45 1RF alprazolam 0.25 mg tablet 0.25 mg PO BID PRN (Reason: anxiety) Qty: 20 1RF multivitamin Tablet 1 tablet PO DAILY metoprolol succinate 50 mg tablet extended release 24 hr 150 mg PO DAILY Qty: 90 5RF omega-3 fatty acids 1,000 mg capsule 1,000 mg PO DAILY sumatriptan succinate 25 mg tablet See Rx Instructions PO .COMPLEX Qty: 14 0RF Rx Instructions: take 1 tab at onset of headache; if no relief may repeat 1 tab after at least 2 hrs; max = 4 tabs/24 hr PO hyoscyamine sulfate 0.125 mg tablet See Rx Instructions .ROUTE .COMPLEX Qty: 30 5RF Dose Instruction: TAKE 1 TABLET BY MOUTH FOUR TIMES DAILY Rx Instructions: TAKE 1 TABLET BY MOUTH FOUR TIMES DAILY metformin 500 mg tablet extended release 24 hr 500 mg PO BID Qty: 180 1RF Savella 50 mg tablet See Rx Instructions .ROUTE .COMPLEX Qty: 60 0RF Dose Instruction: TAKE 1 TABLET BY MOUTH TWICE DAILY Rx Instructions: TAKE 1 TABLET BY MOUTH TWICE DAILY gabapentin 300 mg capsule 300 mg PO TID Qty: 90 3RF duloxetine 60 mg capsule,delayed release(DR/EC) 60 mg PO DAILY Qty: 90 1RF buspirone 15 mg tablet See Rx Instructions PO TID Qty: 90 3RF Rx Instructions: 2 tablets (30 mg) in the morning and 15 mg (1 tablet) in the evening pantoprazole 40 mg tablet,delayed release (DR/EC) See Rx Instructions .ROUTE .COMPLEX Qty: 180 1RF Dose Instruction: TAKE 1 TABLET BY MOUTH TWICE DAILY Rx Instructions: TAKE 1 TABLET BY MOUTH TWICE DAILY Follow-up/Referrals: Deedee Long MD [Primary Care Provider] - Time of Disposition: 20:45 Quality NIHSS Nursing Documentation ED NIHSS nursing documentation: reviewed/agree
--- NOTE | 2025-02-23 19:48 | ECG_ITS ---
Test Date: 2025-02-23 20:21:30 Measurements Intervals [place] Rate: 69 P: 38 MS: 170 QRS: -19 QRSD: 100 T: 35 QT: 409 QTc: 441 Interpretive Statements SINUS RHYTHM Compared to ECG 09/11/2024 21:11:45 Poor R-wave progression no longer present Electronically Signed On 02-24-2025 15:19:33 CDT by Mickey Regan M.D.
== END 2025-02-23 20:48 | disposition home or self-care (01) ==
PROVIDERS: Emergency Provider Nurse Practitioner Family; PCP Family Medicine
DX: J40 Bronchitis, not specified as acute or chronic (principal); N80.9 Endometriosis, unspecified; I10 Essential (primary) hypertension; M79.7 Fibromyalgia; R73.03 Prediabetes; Z87.891 Personal history of nicotine dependence; Z86.16 Personal history of COVID-19
CPT/HCPCS: 71046; 93005; 99213; G0463

== ENCOUNTER 2025-03-11 14:33 | Emergency (ER) | payer OTHER, SELFPAY ==
--- NOTE | ~2025-03-11 | US_ITS ---
LEFT LOWER EXTREMITY VENOUS ULTRASOUND Ordering provider: Sharyn Arzola PA-C History: . pain/calf/thigh . Comparison: None. FINDINGS: --COMMON FEMORAL: Patent and free of thrombus. Normal compressibility, phasic flow and augmentation. --PROXIMAL SUPERFICIAL FEMORAL: Patent and free of thrombus. Normal compressibility, phasic flow and augmentation. --DISTAL SUPERFICIAL FEMORAL: Patent and free of thrombus. Normal compressibility, phasic flow and au gmentation. --POPLITEAL: Patent and free of thrombus. Normal compressibility, phasic flow and augmentation. --POSTERIOR TIBIAL: Patent and free of thrombus. Normal compressibility, phasic flow and augmentation . IMPRESSION: Negative left lower extremity venous US. No deep vein thrombosis. Reviewed, dictated and finalized at location A.
--- OUTSIDE RECORDS SUMMARY | 2025-03-11 14:36 | XMS_ITS | Encounter Summary ---
Author Organization [facility] Address 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 History: Left flank pain. Findings: The abdomen and pelvis are scanned x 5 mm intervals without the use of intravenous contrast. No stones are seen within the kidneys. There is a questionable jesica of calcium measuring 1 mm in the region of the distal left ureter at the level of the ureterovesical junction seen on image 84. This may represent a very tiny distal ureteral stone. Otherwise no stones are seen along the course of the ureters and there is no periureteral or perirenal inflammatory change or dilatation. The nonenhanced liver, spleen, adrenals and pancreas have a normal appearance. No adnexal masses are seen and there is no free fluid. There is no bowel obstruction. Opinion: Question of very tiny distal left ureteral stone. Clinical correlation is recommended. . Dictated by: TENNILLE ERVIN 06/20/2008 14:51 Electronically signed by: TENNILLE ERVIN 06/20/2008 14:55 Procedure Note Tennille Ervin MD - 06/20/2008 [place] [id number] [place], [place] [address] Admit Date: 06/20/2008 SUMMER ABRAMS Sex: F Admit Prov: ER, AUTHORIZED P Date: 1985 Primary Care Prov: CMRN: [id number] Room: ER-A N: [id number] IMAGING SERVICES Ordering Prov: N/A Interpretation CT [...] Electronically signed by: TENNILLE ERVIN 06/20/2008 14:55 us Kayden Anderson MD CT ORDERABLES Final Result * (ABNORMAL) POC URINALYSIS DIPSTICK NON AUTOMATED (06/20/2008 12:59 PM CDT) SPECIFIC GRAVITY UA 1.015 1.001 - 1.030 [facility] GLUCOSE UA Negative Negative [facility] COLOR UA Pale [facility] NITRITE UA Negative Negative [facility] BILIRUBIN UA Negative Negative [facility] PH UA 6.0 5.0 - 8.0 [facility] KETONES UA Negative Negative [facility] CLARITY UA Clear [facility] PROTEIN UA Negative Negative [facility] BLOOD UA 1+(A) Negative [facility] LEUKOCYTE ESTERASE UA Trace(A) Negative [facility] UROBILINOGEN UA Normal <=1 mg/dL [facility] Urine specimen (specimen) 06/20/2008 12:59 PM CDT 06/20/2008 12:59 PM CDT us Authorized P Er POINT OF CARE TESTING Final Resu lt Performing Organization Address City/[facility]/ZIP Co de Phone Number INTERFACE SYSTEM Refer to clinic/hospital department [facility] CLIA# [id number] [address] [place] [address] * POC , URINE (06/20/2008 12:59 PM CDT) , URINE POC Negative Negative [facility] SPECIFIC GRAVITY UA 1.015 1.001 - 1.035 [facility] Urine specimen (specimen) 06/20/2008 12:59 PM CDT 06/20/2008 12:59 PM CDT us Authorized P Er POINT OF CARE TESTING Final Resu lt Performing Organization Address City/[facility] de Phone Number INTERFACE SYSTEM Refer to clinic/hospital department [facility] CLIA# [id number] [address] [place] [address] documented in this encounter Visit Diagnoses Not on filedocumented in this encounter Care Teams Golf Course Designer Relationship Specialty Start Date End Date Dionte Vega MD [address] [place] [address] PCP - General Family Practice 05/25/10 documented as of this encounter
--- OUTSIDE RECORDS SUMMARY | 2025-03-11 14:36 | XMS_ITS | Clinical Summary ---
Author Organization [facility] [address] Address [address] [place] [address] Care Team Providers Care Starch Dumper Name Role Phone Deedee Long MD Primary [...] mg tablet 90 tablet 3 4 Active gabapentin (NEURONTIN) 300 mg capsule Take 100 mg by mouth 3 (three) times a day 4 Active fluticasone propionate (Flonase Allergy Relief) 50 mcg/actuation nasal spray Administer 1 spray into each nostril daily 0 Active lisinopriL (PRINIVIL,ZESTRIL) 10 mg tablet TAKE 1 TABLET(10 MG) BY MOUTH DAILY 90 tablet 1 4 Active Active Problems Problem Noted Date Diagnosed Date Chronic fatigue 10/07/2022 Neck pain on left side 09/24/2021 Other chest pain 07/23/2019 KENZIE on CPAP 03/04/2019 Pulmonary HTN 02/09/2018 Sinus tachycardia 12/30/2017 Palpitations 12/30/2017 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 HTN (hypertension), benign 12/30/2017 Morbid obesity with BMI of 45.0-49.9, adult ([facility]) 12/30/2017 Lipid screening 12/30/2017 QT prolongation 12/30/2017 Hypertension 2015 Surgical History Surgery Date Site/Laterality Comments CHOLECYSTECTOMY [...] History Relation Name Comments Arthritis Father Lj Peraza Depression Father Lj Peraza Diabetes Father Lj Peraza Drug abuse Father Lj Peraza Heart disease Father Lj Peraza Hypertension Father Lj Peraza Mental illness Father Lj Peraza Cancer Maternal Grandfather Yan Loboakacsi Clotting disorder Maternal Grandfather Yan Loboakac si Heart attack Maternal Grandfather Yan Szakacsi Hypertension Maternal Grandfather Yan Szakacsi Anemia Maternal Grandmother Floresita Morriscsi Diabetes Maternal Grandmother Floresita Yamilpietercsi Obesity Maternal Grandmother Floresita Yamilpietercsmarcelo Vision loss Maternal Grandmother Floresita Trejomarcelo Arthritis Mother Dinora Peraza Hypertension Mother Dinora Peraza Obesity Mother Dinora Peraza Cancer Paternal Grandmother Hanna Hare Chino Drug abuse Sister 3 Yanira Peraza Mental illness Sister 3 Yanira Peraza Relation Name Status Comments Father Lj Peraza Alive Maternal Grandfather Yan Yamilpietercsi Maternal Grandmother Floresita Morriscsi Mother Dinora Peraza Alive Paternal Grandmother Hanna Ananya [place] Sister 1 Alive Sister 2 Alive Sister [...] on file 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:55 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 Gender Identity Not on file Sexual Orientation Not on file Obstetrics History Last Filed Vital Signs Vital Sign Reading Time Taken Comments Blood Pressure 134/90 08/17/2024 2:34 PM CARGO WORKER Pulse 103 08/17/2024 2:34 PM CARGO WORKER Temperature - - Respiratory Rate - - Oxygen Saturation 97% 08/17/2024 2:34 PM CARGO WORKER Inhaled Oxygen Concentration - - Weight 124.3 kg (274 lb) 08/17/2024 2:34 PM CARGO WORKER Height 162.6 cm (5' 4) 08/17/2024 2:34 PM CARGO WORKER Body Mass Index 47.03 08/17/2024 2:34 PM CARGO WORKER Plan of Treatment Health Maintenance Due Date Last Done Comments Breast Cancer Screening-Mammogram 1984 Depression Screening 1984 Hepatitis C Screening 1984 Varicella Vaccines (1 of 2 - 13+ 2-dose series) 1997 Hepatitis B Screening 2002 Regular Well Visit/Exam 18-64 2002 Influenza Vaccine (Season Ended) 2025 07/03/2015 DTaP/Tdap/Td Vaccine (3 - Td or Tdap) 01/16/2028 01/15/2018, 07/14/2015 HPV Vaccines Aged Out No longer eligi ble based on patient's age to complete this topic Pneumococcal vaccine <65 Aged Out No longer eligible based on patient's age to complete this topic Insurance [facility] Care Teams Starch Dumper Relationship Specialty Start Date End Date Deedee Long MD PCP - General Family Medicine 10/07/22
--- OUTSIDE RECORDS SUMMARY | 2025-03-11 14:36 | XMS_ITS ---
Author Organization [facility] [employer] [facility] Address [address] [place] [address] Care Team Providers Care Pediatric Clinical Nurse Specialist Name Role Phone Mercedes GUZMAN, Amol Primary Care Provider Eliza Hope [phone] Social History Sex Assigned At : Social History Observation Description Sex Assigned At Female Encounters Encounter Location Date Provider Diagnosis [facility] MyNewFinancialAdvisor [place] [id number] [place] [address] 07/23/2024 Vikasa Iwona Plan Of Treatment No Information Progress Notes * SUMMER PHILLIPS LDOB:1984 (39 yo F)Acc No.[id number]:07/23/2024 Patient: SUMMER MCGEE Provider: Santo JORDAN MD :1985 A ge:39 Y S ex:Female Date:07/23/2024 Address:[address] [facility] Pcp:Amol Long MD Subjective: * Chief Complaints: * * Medical History: Objective: * Vitals: Assessment: Plan: * Treatment: * Billing Information: * Visit Code: * Procedure Codes: * Electronic signature of Vikas Jordan MD on 03/11/2025 at 02:36 PM CDT Sign off status: Pending * Provider: Santo JORDAN MD Date: 1 Generated for Printi ng/Faxing/eTransmitting on: 0 03/11/2025 02:36 PM CDT
--- OUTSIDE RECORDS SUMMARY | 2025-03-11 14:36 | XMS_ITS | Referral Summary ---
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 Gender Identity Not on file Sexual Orientation Not on file Last Filed Vital Signs Vital Sign Reading Time Taken Comments Blood Pressure 134/90 08/17/2024 2:34 PM ASSISTANT OCEANOGRAPHER Pulse 103 08/17/2024 2:34 PM ASSISTANT OCEANOGRAPHER Temperature - - Respiratory Rate - - Oxygen Saturation 97% 08/17/2024 2:34 PM ASSISTANT OCEANOGRAPHER Inhaled Oxygen Concentration - - Weight 124.3 kg (274 lb) 08/17/2024 2:34 PM ASSISTANT OCEANOGRAPHER Height 162.6 cm (5' 4) 08/17/2024 2:34 PM ASSISTANT OCEANOGRAPHER Body Mass Index 47.03 08/17/2024 2:34 PM ASSISTANT OCEANOGRAPHER Plan of Treatment Not on file Insurance [facility] Address: [address] [address] [place] [address] [facility]/PPO Address: [address] [address] [place] [address] Care Teams Pattern Finisher Relationship Specialty Start Date End Date Deedee Long MD PCP - General Family Medicine 10/07/22
[2025-03-11 14:40] VITALS: BP 148/86; PULSE 78; RESP 14; TEMP 36.6; O2SAT 97
--- OUTSIDE RECORDS SUMMARY | 2025-03-11 14:40 | XMS_ITS | Clinical Summary ---
Author Organization [facility] Address [address] [place] [id number] Phone Care Team Providers Care Lead Business Analyst Name Role Phone Dionte Vega MD Primary Care Provider Allergies Active Allergy Reactions Criticality Noted Date Comments Fluconazole Anxiety Low 01/16/2021 Promethazine Anxiety Low 05/25/2010 Medications magnesium oxide 500 mg Capsule Take by mouth. Active SAVELLA 50 mg tablet Take 50 mg by mouth 2 times daily. 3 06/09/2019 Active Pyridoxine 200 mg Tablet Sustained Release Take 300 mg by mouth. Active Cholecalciferol , Vitamin D3, 2,000 unit Capsule Take 2,000 [...] Release 24 hour tablet 100 mg. Active triamterene-hyd roCHLOROthiazid e (DYAZIDE) 37.5-25 mg capsule Take 1 Capsule by mouth daily in the morning. Active ESCITALOPRAM OXALATE ORAL Take by mouth. Active OM 5-IHM-[id number] T-[id number] ORAL Take by mouth. Active evening primrose oil (EVENING PRIMROSE ORAL) Take by mouth. Active omeprazole (PriLOSEC) 40 mg Capsule, Delayed Release(E.C.) Take 40 mg by mouth daily at bedtime. Active HYDROcodone-carina taminophen (NORCO) 5-325 mg tabletIndicatio ns:Radial scar of breast,Intraduc khalif papilloma of breast, right,Mastodyni a,Duct ectasia, left,Mass of upper inner quadrant of right breast,Abnormal ity of right breast on screening mammogram Take [...] Abnormal ultrasound of breast 07/02/2019 08/09/2019 Immunizations Immunization Administration Dates Next Due ([facility])(12 YR UP) COVID-19 VACCINE - EMERGENCY USE AUTHORIZATION, MRNA, [id number](PF) 30 MCG/0.3 ML IM SUSP 12/29/2020,11/30/2020 Family [...] oz pur e alcohol) 1 per month Comments No Sex and Gender Information Value Date Recorded Sex Assigned at Not on file Legal Sex Female 5:38 AM [employer]QUIPMENT IN[employer]ATION PROFESSION[employer] Gender Identity Not on file Sexual Orientation Not on file Last Filed Vital Signs Vital Sign Reading Time Taken Comments Blood Pressure 138/88 02/09/2021 4:36 PM CDT Pulse 89 02/09/2021 4:36 PM CDT Temperature 36.5 C (97.7 F) 02/09/2021 4:36 PM CDT Respiratory Rate 18 02/09/2021 3:14 PM CDT Oxygen Saturation 97% 02/09/2021 4:36 PM CDT Inhaled Oxygen Concentration - - Weight 128.8 kg (283 lb 14.4 oz) 02/09/2021 7:46 AM CDT Height 162.6 cm (5' 4) 02/09/2021 7:46 AM CDT Body Mass Index 48.73 02/09/2021 7:46 AM CDT Plan of Treatment Health Maintenance Due Date Last Done Comments Pre-Diabetes and Diabetes Screening 1984 DTAP/TDAP/TD VACCINES (1 - Tdap) 2003 HEPATITIS B VACCINES (1 of 3 - 19+ 3-dose series) 2003 HPV/Cotest (21-29) 2005 CERVICAL CANCER SCREENING 2014 HPV/Cotest (30-65) 2014 PAP SMEAR 2014 BREAST CANCER SCREENING 2024 11/08/19, 04/15/2019, 04/15/2019 INFLUENZA VACCINE (#1) 2024 COVID-19 Vaccine ( season) 2024 12/29/2020, 11/30/2020 HPV VACCINES Aged Out No longer eligi ble based on patient's age to complete this topic Medical Devices Implanted Type Area Tariff Inspector Device Identifier Shelf Expiration Date Model / Serial / Lot Hemostatic Surgicel 2x3in 1953 - [id number] Implanted:Qty : 1 on 02/09/2021 by Erika Martinez MD at [facility] Hemostatic Right: Breast [employer] [id number] 10/29/20241952 / / [id number] Breast Biopsy Clips-Bilater al Procedures Procedure Name Priority Date/Time Associated Diagnosis Comments MAMMO 3D AN DIAGNOSTIC MONICA AT W OR WO CAD Routine 11/08/2020 from Last 3 Months or Most Recently Relevant to Health Maintenance Results * (ABNORMAL) MAMMO DIAG BILAT 3D AN W OR WO CAD (11/08/2020) Anatomical Region Laterality Modality Breast Bilateral Mammography us Abstract Provider MAMMO ORDERABLES Edited Result - Final from Last 3 Months or Most Recently Relevant to Health Maintenance Insurance [facility] [id number] Care Teams Lead Business Analyst Relationship Specialty Start Date End Date Dionte Vega MD [address] [place] [id number] PCP - General Family Practice 05/25/10
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
--- OUTSIDE RECORDS SUMMARY | 2025-03-11 14:40 | XMS_ITS | Data Portability ---
Author Organization [facility] Address [address] [place] [address] [place] [address] Care Team Providers Care Hardware Assembler Name Role Phone JIHAN SANTANA Primary Care Provider Assessment Encounter Date Assessment Date Assessment LastModified by Organization Details LastModified Time 12/04/2023 12/04/[place] [id number] [email or web address] Not availabl e 12/11/2023 12:23:58 Plan of Treatment Reminders Order Date Submit Date Provider Last Modified By Organization Details Last Modified Time Details Appointments None recorded. Lab urinalysis, dipstick 2023 024 [email or web address] [facility], [address], [place], [address], 17:32:30 test, urine 2023 024 [email or web address] 1 [facility], [address], [place], [address], 17:32:29 culture, urine 2023 024 [facility] (Lab), [address], [place], [address], 14:32:16 Referral None recorded. Procedures None recorded. Surgeries total hysterectom y, laparoscopi c, with bilateral salpingo-oo phorectomy (SURG) 2023 024 [email or web address] 1 [facility], [facility] [address] [place], [address], 09:53:37 Imaging None recorded. Medication Orders tramadol 50 mg tablet 2023 024 [id number] [address], [place], [place], [id number], 17:49:54 ketorolac 60 mg/2 mL intramuscul ar solution 2023 024 [email or web address] 1 [facility], [address] [place] [address], [address], 17:20:00 ondansetron 8 mg disintegrat ing tablet 2023 024 [facility], [address] [place] [address], [id number], 16:33:48 ketorolac 60 mg/2 mL intramuscul ar solution 2023 024 [email or web address] 1 Not available 17:20:00 Patient TargetsNo targets recorded. Patient InstructionsNo instructions [...] t Abnor mal: No Resul ting Lab: [facility] [address] [facility] [address] Tel: [phone] CULTU RE ----- ----- ----- --- Organ ism(s ) consi stent with uroge nital or skin joey . Repea t cultu re if sympt oms indic ate. Not Available [facility] (Lab) [address], [place], [address], 12/10/2023 14:32:15 12/08/19 24 12/08/2023 pregn filippo test, urine HCG negati ve Not Available [facility] [address], [place], [address], 12/08/2023 17:31:59 12/08/19 24 12/08/2023 urina lysis , dipst ick Leukocytes normal Not Available [facility] [address], [place], [address], 12/08/2023 17:28:58 12/08/19 24 12/08/2023 urina lysis , dipst ick Nitrite normal Not Available [facility] [address], [place], [address], 12/08/2023 17:28:58 12/08/19 24 12/08/2023 urina lysis , dipst ick Urobilinogen normal Not Available [facility] dejuan [address], [place], [address], 12/08/2023 17:28:58 12/08/19 24 12/08/2023 urina lysis , dipst ick Protein trace Not Available [facility] [address], [place], [address], 12/08/2023 17:28:58 12/08/19 24 12/08/2023 urina lysis , dipst ick pH 8 Not Available [facility] [address], [place], [address], 12/08/2023 17:28:58 12/08/19 24 12/08/2023 urina lysis , dipst ick Blood +++ Not Available [facility], [place], [address], 12/08/2023 17:28:58 12/08/19 24 12/08/2023 urina lysis , dipst ick Specific [place] 1.020 Not Available [facility] [address], [place], [address], 12/08/2023 17:28:58 12/08/19 24 12/08/2023 urina lysis , dipst ick Ketone normal Not Available [facility] [address], [place], [address], 12/08/2023 17:28:58 12/08/19 24 12/08/2023 urina lysis , dipst ick Bilirubin normal Not Available [facility] hector [address], [place], [address], 12/08/2023 17:28:58 12/08/19 24 12/08/2023 urina lysis , dipst ick Glucose normal Not Available [facility] [address], [place], [address], 12/08/2023 17:28:58 12/08/19 24 12/08/2023 urina lysis , dipst ick Appearance normal Not Available [facility] liana [address], [place], [address], 12/08/2023 17:28:58 12/08/19 24 12/08/2023 urina lysis , dipst ick Color normal Not Available [facility] [address], [place], [address], 12/08/2023 17:28:58 01/01/20 24 12/30/2023 CT, abdom en + pelvi s, w/ contr ast No observ ation record ed. [address], [place], [address], 01/01/2024 20:51:48 01/02/20 24 01/02/2024 CT, abdom en + pelvi s, w/ contr ast No observ ation record ed. [email or web address] [facility] [address], [place], [address], 01/03/2024 22:27:03 02/04/20 24 02/04/2024 MAMMO , diagn ostic , digit al, bilat eral No observ ation record ed. RODNEY [facility] [address], [place], [address], 02/09/2024 11:27:44 01/26/20 25 09/24/2024 MAMMO , diagn ostic , digit al, bilat eral No observ ation record ed. [email or web address] [facility] [address], [place], [address], 01/31/2025 09:47:25 Result Notes None recorded. Problems Name Problem SNOMED Code Status Onset Date Resolution Date Notes Provider Name and Address Organization Details Recorded Time Uterine fibroid complica ting antenata l care, baby not yet delivere d [id number] Completed 201704/27/2021 Maternal care for benign tumor of corpus uteri, third tri;Robert rded Elsewher e: No Locat ion: [facility] S ource: EHR Rivet Passer mara: N [place] ce ID: 0001 Gera lable Time: 03:30:00 PM Martha calvert [facility] 1 15:29:05 Normal pregnanc y in multigra raya [id number] Completed 201704/27/2021 Encounte r for suprvsn of normal pregnanc y, second trimeste r;Record ed Elsewher e: No Locat ion: [facility] S ource: EHR Rivet Passer mara: N Dmitryti ce ID: 0001 Gera lable Time: 03:00:00 PM Martha calvert [facility] 15:32:02 Spotting per vagina in pregnanc y [id number] Completed 201404/27/2021 SPOTTING -ANTEPAR STEFANO;Robert rded Elsewher e: No Locat ion: [facility] S ource: EHR Rivet Passer mara: N Practi ce ID: 0001 Gera lable Time: 04:00:00 PM Martha calvert, [facility] 1 15:29:47 Amenorrh ea [id number] Completed 201504/27/2021 Amenorrh ea;Recor ded Elsewher e: No Locat ion: [facility] S ource: EHR Rivet Passer mara: N Practi ce ID: 0001 Gera lable Time: 03:30:00 PM Martha calvert, [facility] 15:28:22 Pregnanc y-induce d hyperten geronimo Completed 201504/27/2021 Gestatio nal hyperten geronimo w/o signific ant proteinu gloria;Robert rded Elsewher e: No Locat ion: [facility] S ource: EHR Rivet Passer mara: N Practi ce ID: 0001 Gera lable Time: 06:00:00 PM Martha calvert, [facility] 15:29:13 Uterine size for dates discrepa ncy Completed 201604/27/2021 Uterine size-sydney e discrepa ncy, first trimeste r;Record ed Elsewher e: No Locat ion: Nanda [facility] S ource: EHR Rivet Passer mara: N Practi ce ID: 0001 Gera lable Time: 05:45:00 PM Martha calvert, [facility] 1 15:29:16 Urinary tract infectio us disease [id number] Completed 201604/27/2021 Urinary tract infectio n, site not specifie d;Record ed Elsewher e: No Locat ion: Inge hector [facility] S ource: EHR Rivet Passer mara: N Practi ce ID: 0001 Gera lable Time: 04:00:00 PM Martha calvert, [facility] 15:32:22 Hyperten geronimo in the obstetri c context Completed 201704/27/2021 Pre-exis ting essentia l htn comp pregnanc y, third trimeste r;Record ed Elsewher e: No Locat ion: [facility] S ource: EHR Rivet Passer mara: N Dmitryti ce ID: 0001 Gera lable Time: 09:30:00 AM Martha calvert, [facility] 15:29:10 Gestatio nal diabetes mellitus [id number] Completed 201704/27/2021 Gestatio nal diabetes mellitus in pregnanc y, unsp control; Recorded Elsewher e: No Locat ion: [facility] S ource: EHR Rivet Passer mara: N Dmitryti ce ID: 0001 Gera lable Time: 03:00:00 PM Martha calvert, [facility] 15:27:50 Vaginiti s and vulvovag initis Completed 201404/27/2021 Vaginiti s;Record ed Elsewher e: No [facility]at [facility] S ource: EHR Rivet Passer mara: N Dmitryti ce ID: 0001 Gera lable Time: 10:15:00 AM Martha calvert [facility] 15:28:43 Gestatio n period, 33 weeks [id number] Completed 201704/27/2021 33 weeks gestatio n of pregnanc y;Record ed Elsewher e: No [facility]at ion: [facility] S ource: EHR Rivet Passer mara: N Practi ce ID: 0001 Gera lable Time: 09:30:00 AM Martha calvert [facility] 15:32:37 Gestatio n period, 36 weeks [id number] Completed 201704/27/2021 36 weeks gestatio n of pregnanc y;Record ed Elsewher e: No Locat ion: [facility] S ource: EHR Rivet Passer mara: N Dmitryti ce ID: 0001 Gera lable Time: 03:30:00 PM Martha calvert, [facility] 15:32:18 Pre-exis ting hyperten geronimo in obstetri c context [id number] Completed 201404/27/2021 Unsp pre-exis ting htn comp pregnanc y, third trimeste r;Record ed Elsewher e: No Locat ion: [facility] S ource: EHR Rivet Passer mara: N Dmitryti ce ID: 0001 Gera lable Time: 04:45:00 PM Martha calvert, [facility] 15:32:44 Gestatio n period, 28 weeks [id number] Completed 201704/27/2021 28 weeks gestatio n of pregnanc y;Record ed Elsewher e: No Locat ion: [facility] S ource: EHR Rivet Passer mara: N Dmitryti ce ID: 0001 Gera lable Time: 08:15:00 AM Martha calvert, [facility] 15:32:48 Morbid obesity [id number] Completed 201404/27/2021 Obesity, Morbid;R ecorded Elsewher e: No Locat ion: [facility] S ource: EHR Rivet Passer mara: N Dmitryti ce ID: 0001 Gera lable Time: 05:00:00 PM Martha calvert, [facility] 15:29:06 Gestatio n period, 34 weeks [id number] Completed 201704/27/2021 34 weeks gestatio n of pregnanc y;Record ed Elsewher e: No Locat ion: [facility] S ource: EHR Rivet Passer mara: N Dmitryti ce ID: 0001 Gera lable Time: 03:00:00 PM Martha calvert, [facility] 1 15:28:17 Primigra raya [id number] Completed 201404/27/2021 Supervis ion of normal first pregnanc y;Record ed Elsewher e: No Locat ion: [facility] S ource: EHR Rivet Passer mara: N Franklin ce ID: 0001 Gera lable Time: 05:00:00 PM Martha calvert, [facility] 1 15:28:13 Mastitis Completed 201504/27/2021 Mastitis ;Recorde d Elsewher e: No Locat ion: [facility] S ource: EHR Rivet Passer mara: N Franklin ce ID: 0001 Gera lable Time: 12:00:00 PM Martha calvert, [facility] 1 15:32:00 Pregnanc y, childbir th and puerperi um finding Completed 201404/27/2021 Encounte r for supervis ion of normal first pregnanc y, third trimeste r;Record ed Elsewher e: No Locat ion: [facility] S ource: EHR Rivet Passer mara: Zander Reid ce ID: 0001 Gera lable Time: 05:30:00 PM Martha calvert, [facility] 1 15:30:03 Speciali zed medical examinat ion Completed 201204/27/2021 Gynecolo gical Examinat ion;Robert rded Elsewher e: No Locat ion: [facility] S ource: EHR Rivet Passer mara: Zander Reid ce ID: 0001 Gera lable Time: 01:30:00 PM Martha calvert, [facility] 1 15:32:09 Uterine leiomyom a [id number] Completed 201304/27/2021 Leiomyom a of uterus, unspecif ied;Robert rded Elsewher e: No [facility]et Passer mara: N Practi ce ID: 0001 Gera lable Time: 04:45:00 PM Martha calvert [facility] 15:32:54 Body mass index 30+ - obesity [id number] Completed 201504/27/2021 Body mass index (BMI) 45.0-49. 9, adult;Re corded Elsewher e: No Locat ion: [facility] Pract[facility] ce ID: 0001 Gera lable Time: 04:30:00 PM Martha calvert [facility] 15:28:30 Acute vulvitis [id number] Completed 201604/27/2021 Vulvitis ;Recorde d Elsewher e: No Locat ion: [facility] S ource: EHR Rivet Passer mara: N Practi ce ID: 0001 Gera lable Time: 12:30:00 PM Martha calvert [facility] 15:29:54 Finding by site Completed 201504/27/2021 Dermatit is;Recor ded Elsewher e: No Locat ion: [facility] S ource: EHR Rivet Passer mara: N Practi ce ID: 0001 Gera lable Time: 05:00:00 PM Martha calvert [facility] 15:28:54 Pain of breast [id number] Completed 201104/27/2021 Mastodyn ia;Recor ded Elsewher e: No Locat ion: [facility] S ource: EHR Rivet Passer mara: N Practi ce ID: 0001 Gera lable Time: 02:45:00 PM Martha calvert [facility] 15:32:13 HELLP syndrome [id number] Completed 201504/27/2021 Severe pre-ecla mpsia w/ hemolysi s, elevated liver enzymes and low platelet count;Re corded Elsewher e: No [facility]at ion: [facility] S ource: EHR Rivet Passer mara: N Practi ce ID: 0001 Gera lable Time: 05:30:00 PM Martha calvert, [facility] 15:32:56 Hyperten sive disorder [id number] Completed 201604/27/2021 Essentia l (primary ) hyperten geronimo;Rec orded Elsewher e: No Locat ion: [facility] S ource: EHR Rivet Passer mara: N Practi ce ID: 0001 Gera lable Time: 05:15:00 PM Martha calvert, [facility] 15:30:[address] Concept Completed 201604/27/2021 Encntr for general adult medical exam w/o abnormal findings ;Recorde d Elsewher e: No Locat ion: [facility] S ource: EHR Rivet Passer mara: N Practi ce ID: 0001 Gera lable Time: 04:30:00 PM Martha calvert, [facility] 15:29:59 Pregnanc y test negative [id number] Completed 201104/27/2021 Pregnanc y examinat ion or test, negative result;R ecorded Elsewher e: No Locat ion: [facility] N Practi ce ID: 0001 Gera lable Time: 03:00:00 PM Martha calvert, [facility] 15:29:31 Pelvic and perineal pain [id number] Completed 201704/27/2021 Pelvic pain;Rec orded Elsewher e: No Locat ion: [facility] S ource: EHR Rivet Passer mara: N Practi ce ID: 0001 Egra lable Time: 02:00:00 PM Martha calvert, [facility] 1 15:29:46 Gestatio nal diabetes mellitus in [facility] [id number] 946807 Completed 201704/27/2021 Gestatio nal diabetes mellitus in [facility], diet controll ed;Recor ded Elsewher e: No Locat ion: [facility] S ource: EHR Rivet Passer mara: N Dmitryti ce ID: 0001 Gera lable Time: 02:45:00 PM Martha calvert, [facility] 1 15:27:44 Speciali zed medical examinat ion Completed 201404/27/2021 Other specifie d chlamydi al diseases ;Recorde d Elsewher e: No Locat ion: [facility] S ource: EHR Rivet Passer mara: N Dmitryti ce ID: 0001 Gera lable Time: 05:00:00 PM Martha calvert, [facility] 15:32:11 Antenata l screenin g Completed 201604/27/2021 Encounte r for antenata l screenin g for nuchal transluc ency;Rec orded Elsewher e: No Locat ion: [facility] S ource: EHR Rivet Passer mara: N Dmitryti ce ID: 0001 Gera lable Time: 01:30:00 PM Martha calvert, [facility] 15:29:26 Candidia sis [id number] Completed 201604/27/2021 Candidia sis;Robert rded Elsewher e: No Locat ion: [facility] S ource: EHR Rivet Passer mara: N Dmitryti ce ID: 0001 Gera lable Time: 04:15:00 PM Martha calvert [facility] 15:32:35 Acute vaginiti s [id number] Completed 201404/27/2021 Acute vaginiti s;Record ed Elsewher e: No Locat ion: [facility] S ource: EHR Rivet Passer mara: N Practi ce ID: 0001 Gera lable Time: 05:00:00 PM Martha calvert, [facility] 1 15:29:28 Human papillom a virus infectio n [id number] Completed 201204/27/2021 HUMAN PAPILLOM AVIRUS IN CONDITIO NS CLASSIFI ED ELSEWHER E AND OF UNSPECIF IED SITE;Rec orded Elsewher e: No Locat ion: [facility] S ource: EHR Rivet Passer mara: N Practi ce ID: 0001 Gera lable Time: 03:30:00 PM Martha calvert, [facility] 1 15:29:20 Polyp of corpus uteri [id number] Completed 201104/27/2021 Polyp of corpus uteri;Re corded Elsewher e: No Locat ion: [facility] S ource: EHR Rivet Passer mara: Y Practi ce ID: 0001 Gera lable Time: 02:15:00 PM Martha calvert, [facility] 1 15:27:48 Mental disorder in mother complica ting pregnanc y [id number] Completed 201704/27/2021 post depressi on;Recor ded Elsewher e: No Locat ion: [facility] S ource: EHR Rivet Passer mara: N Practi ce ID: 0001 Gera lable Time: 03:30:00 PM Martha calvert, [facility] 1 15:32:25 Adult health examinat ion Completed 201104/27/2021 Routine Medical Exam;Rec orded Elsewher e: No Locat ion: [facility] S ource: EHR Rivet Passer mara: N Practi ce ID: 0001 Gera lable Time: 02:30:00 PM Martha Darnell enrike, [facility] 1 15:29:42 Tumor of uterine body complica ting antenata l care, baby not yet delivere d [id number] Completed 201404/27/2021 Tumors of body of uterus, antepart um conditio n or complica tion;Rec orded Elsewher e: No Locat ion: [facility] N Dmitryti ce ID: 0001 Gera lable Time: 02:15:00 PM [facility] 1 15:29:40 Cyst of ovary [id number] Completed 201304/27/2021 Ovarian cyst;Rec orded Elsewher e: No Locat ion: [facility] S ource: [facility] mara: Zander Reid ce ID: 0001 Gera lable Time: 05:15:00 PM [facility] 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 1 15:32:52 Procedur e on genitour inary system Completed 201704/27/2021 Encounte r for surgical aftercar e followin g surgery on the genitour inary system;R ecorded Elsewher e: No Locat ion: [facility]: Zander Andresti ce ID: 0001 Gera lable Time: 04:45:00 PM Martha calvert [facility] 1 15:27:53 Postoper ative care Completed 201704/27/2021 Encounte r for surgical aftercar e followin g surgery on the genitour inary system;R ecorded Elsewher e: No [facility]et Passer mara: N Dmitryti ce ID: 0001 Gera lable Time: 04:45:00 PM Martha calvert [facility] 1 15:28:15 Gestatio n period, 32 weeks [id number] Completed 201704/27/2021 32 weeks gestatio n of pregnanc y;Record ed Elsewher e: No Locat ion: [facility] S ource: EHR Rivet Passer mara: N Dmitryti ce ID: 0001 Gera lable Time: 03:00:00 PM Martha calvert, [facility] 1 15:32:33 Abdomina l pain [id number] Completed 201404/27/2021 Abdomina l pain;Rec orded Elsewher e: No Locat ion: [facility] S ource: EHR Rivet Passer mara: N Dmitryti ce ID: 0001 Gera lable Time: 10:15:00 AM Martha calvert [facility] 15:28:56 Screenin g for malignan t neoplasm of cervix Completed 201104/27/2021 Screenin g for malignan t neoplasm s of the cervix;R ecorded Elsewher e: No Locat ion: [facility] S ource: EHR Rivet Passer mara: N Dmitryti ce ID: 0001 Gera lable Time: 03:00:00 PM Martha calvert [facility] 1 15:28:37 Gestatio n less than 9 weeks [id number] Completed 201604/27/2021 Less than 8 weeks gestatio n of pregnanc y;Record ed Elsewher e: No Locat ion: [facility] S ource: EHR Rivet Passer mara: N Dmitryti ce ID: 0001 Gera lable Time: 03:00:00 PM Martha calvert [facility] 1 15:31:50 Female genital organ symptoms [id number] Completed 201304/27/2021 Unspecif ied symptom associat ed with female genital organs;R ecorded Elsewher e: No [facility]: [facility] Rivet Passer mara: N Practi ce ID: 0001 Gera lable Time: 04:45:00 PM Martha calvert, [facility] 1 15:28:45 Blood in urine [id number] Completed 201404/27/2021 HEMATURI A NOS;Robert rded Elsewher e: No Locat ion: [facility] S ource: EHR Rivet Passer mara: N Dmitryti ce ID: 0001 Gera lable Time: 10:15:00 AM Martha calvert, [facility] 1 15:29:57 Hyperten geronimo in the obstetri c context Completed 201504/27/2021 Pre-exis ting essentia l hyperten geronimo complica ting pregnanc y, first trimeste r;Record ed Elsewher e: No Locat ion: [facility] S ource: EHR Rivet Passer mara: N Dmitryti ce ID: 0001 Gera lable Time: 06:00:00 PM Martha calvert, [facility] 1 15:29:08 Evaluati on finding Completed 201904/27/2021 Hematuri a, unspecif ied;Robert rded Elsewher e: No Locat ion: [facility] S ource: EHR Rivet Passer mara: N Practi ce ID: 0001 Gera lable Time: 09:45:00 AM Martha calvert, [facility] 1 15:29:44 Gestatio n period, 30 weeks [id number] Completed 201404/27/2021 30 weeks gestatio n of pregnanc y;Record ed Elsewher e: No Locat ion: [facility] S ource: EHR Rivet Passer mara: N Practi ce ID: 0001 Gera lable Time: 12:00:00 PM Martha calvert, [facility] 15:32:[address] Concept Completed 201604/27/2021 Encntr for wildlife forensic geneticist exam (general ) (routine ) w/o abn findings ;Recorde d Elsewher e: No Locat ion: Inge [facility] S ource: EHR Rivet Passer mara: N Practi ce ID: 0001 Gera lable Time: 04:30:00 PM Martha calvert, [facility] 15:30:00 Finding of sensatio n of breast Completed 201804/27/2021 Mastodyn ia;Recor ded Elsewher e: No [facility]at ion[facility]: E[facility] Rivet Passer mara: N Practi ce ID: 0001 Gera lable Time: 10:00:00 AM Martha calvert, [facility] 15:29:[address] Concept Completed 201704/27/2021 Anxiety; Recorded Elsewher e: No Locat ion: [facility] S ource: EHR Rivet Passer mara: N Practi ce ID: 0001 Gera lable Time: 05:30:00 PM Martha calvert, [facility] 15:28:24 Severe obesity complica ting pregnanc y [id number] Completed 201704/27/2021 Obesity complica ting pregnanc y, unspecif ied trimeste r;Record ed Elsewher e: No Locat ion: [facility] S ource: EHR Rivet Passer mara: N Practi ce ID: 0001 Gera lable Time: 04:00:00 PM Martha calvert, [facility] 15:28:28 Benign neoplasm of vulva [id number] Completed 201604/27/2021 Benign neoplasm of vulva;Re corded Elsewher e: No Locat ion: [facility] S ource: EHR Rivet Passer mara: N Dmitryti ce ID: 0001 Gera lable Time: 03:45:00 PM Martha calvert [facility] 1 15:32:50 Antenata l screenin g for malforma tion Completed 201704/27/2021 Encounte r for antenata l screenin g for malforma tions;Re corded Elsewher e: No Locat ion: [facility] S ource: EHR Rivet Passer mara: N Dmitryti ce ID: 0001 Gera lable Time: 03:45:00 PM Martha calvert, [facility] 15:32:28 Asymptom at microsco pic hematuri a [id number] Completed 201704/27/2021 Asymptom at microsco pic hematuri a;Record ed Elsewher e: No Locat ion: [facility] S ource: EHR Rivet Passer mara: N Dmitryti ce ID: 0001 Gera lable Time: 04:45:00 PM Martha calvert, [facility] 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 15:32:51 Educatio n Completed 201504/27/2021 Encounte r for oth general cnsl and advice on contrace ption;Pr actice ID: 0001 Martha calvert, [facility] 15:30:02 Inflamma tory disorder of breast [id number] Completed 201504/27/2021 Mastitis without abscess; Practice ID: 0001 Martha calvert [facility] 15:29:37 Vaginola bial hernia Completed 201604/27/2021 Other specifie d noninfla mmatory disorder s of vagina;P ractice ID: 0001 Martha calvert, [facility] 15:29:34 Infectio n of nipple associat ed with lactatio n [id number] 177233 Completed 201704/27/2021 Infectio n of nipple associat ed with lactatio n;Record ed Elsewher e: No [facility]: EHR Rivet Passer mara: N [place] ce ID: 0001 Gera lable Time: 01:45:00 PM Martha [facility] , [facility] 15:27:46 Leukorrh ea [id number] Completed 201404/27/2021 Leukorrh ea, not specifie d as infectiv e;Record ed Elsewher e: No Locat ion: [facility] S ource: EHR Rivet Passer mara: N Franklin ce ID: 0001 Gear lable Time: 10:15:00 AM Martha calvert [facility] 15:29:03 Gestatio n period, 37 weeks [id number] Completed 201404/27/2021 37 weeks gestatio n of pregnanc y;Record ed Elsewher e: No Locat ion: [facility] S ource: EHR Rivet Passer mara: N Dmitryti ce ID: 0001 Gera lable Time: 05:00:00 PM Martha calvert [facility] 15:31:52 Finding of body mass index [id number] Completed 201604/27/2021 Body mass index (BMI) 40.0-44. 9, adult;Re corded Elsewher e: No Locat ion: [facility] S ource: EHR Rivet Passer mara: N Practi ce ID: 0001 Gera lable Time: 04:30:00 PM Martha calvert, [facility] 15:29:49 Benign essentia l hyperten geronimo [id number] Completed 201404/27/2021 Hyperten geronimo, Benign;R ecorded Elsewher e: No Locat ion: [facility] S ource: EHR Rivet Passer mara: N Practi ce ID: 0001 Gera lable Time: 05:00:00 PM Martha Patrick enrike, [facility] 15:27:56 Gestatio n period, 35 weeks [id number] Completed 201404/27/2021 35 weeks gestatio n of pregnanc y;Record ed Elsewher e: No Locat ion: [facility] S ource: EHR Rivet Passer mara: N Practi ce ID: 0001 Gera lable Time: 05:00:00 PM Martha calvert, [facility] 15:32:42 Secondar y amenorrh ea [id number] Completed 201604/27/2021 Secondar y amenorrh ea;Pract ice ID: 0001 Martha calvert, [facility] 15:28:26 Pregnanc y detectio n examinat ion Completed 201604/27/2021 Encounte r for pregnanc y test, result positive ;Practic e ID: 0001 Martha Darnell enrike, [facility] 15:32:32 Gestatio n period, 19 weeks [id number] Completed 201704/27/2021 19 weeks gestatio n of pregnanc y;Practi ce ID: 0001 Martha Darnell calvert, [facility] 15:32:16 Gestatio n period, 20 weeks [id number] Completed 201704/27/2021 20 weeks gestatio n of pregnanc y;Practi ce ID: 0001 Martha calvert, [facility] 15:29:01 Benign essentia l hyperten geronimo complica ting pregnanc y, childbir th and the puerperi um - delivere d [id number] Completed 201404/27/2021 Benign essentia l hyperten geronimo with delivery ;Recorde d Elsewher e: No Locat ion: [facility] S ource: EHR Rivet Passer mara: N Practi ce ID: 0001 Gera lable Time: 03:30:00 PM Martha calvert [facility] 15:28:46 Complica tion of pregnanc y, childbir th and/or puerperi um [id number] Completed 201704/27/2021 Oth diseases and conditio ns compl preg/chl dbrth;Pr actice ID: 0001 Martha calvert, [facility] 15:29:24 Atypical squamous cells of undeterm ined signific ance on cervical Papanico laou smear [id number] Completed 201204/27/2021 Papanico laou smear of cervix with atypical squamous cells of undeterm ined signific ance (ASC-US) ;Recorde d Elsewher e: No [facility]at [facility] S ource: EHR Rivet Passer mara: N Practi ce ID: 0001 Gera lable Time: 03:30:00 PM Martha calvert [facility] 15:31:55 Atypical squamous cells on cervical Papanico laou smear cannot exclude high grade squamous intraepi thelial lesion [id number] Completed 201204/27/2021 Papanico laou smear of cervix with atypical squamous cannot exclude high grade squamous intraepi thelial lesion (ASC-H); Recorded Elsewher e: No [facility]at ion[facility] S ource: EHR Rivet Passer mara: N Dmitryti ce ID: 0001 Gera lable Time: 03:30:00 PM Martha calvert, [facility] 15:31:56 Single live from singleto n pregnanc y [id number] Completed 201704/27/2021 Single live ;Re corded Elsewher e: No Locat ion: [facility] ID: 0001 Gera lable Time: 09:45:00 AM Martha calvert, [facility] 15:28:33 Abnormal glucose toleranc e in mother complica ting pregnanc y, childbir th AND/OR puerperi [id number] Completed 201704/27/2021 Abnormal glucose complica ting pregnanc y;Record ed Elsewher e: No Locat ion: [facility] S ource: EHR Rivet Passer mara: N Dmitryti ce ID: 0001 Gera lable Time: 09:03:24 AM Martha calvert, [facility] 15:30:09 Abscess of vulva [id number] Completed 201004/27/2021 BOIL VULVA LABIA;Pr actice ID: 0001 Martha Darnell enrike, [facility] 15:32:24 Carbuncl e of buttock [id number] Completed 201004/27/2021 BOIL BUTTOCK ANUS;Pra ctice ID: 0001 Martha Darnell enrike, [facility] 15:32:05 Gestatio n period, 38 weeks [id number] Completed 201404/27/2021 38 weeks gestatio n of pregnanc y;Record ed Elsewher e: No Locat ion: [facility] S ource: EHR Rivet Passer mara: N Practi ce ID: 0001 Gera lable Time: 05:00:00 PM Martha calvert [facility] 15:28:20 Venereal disease screenin g Completed 201404/27/2021 Screenin g examinat ion for venereal disease; Recorded Elsewher e: No Locat ion: [facility] Practi ce ID: 0001 Gera lable Time: 05:00:00 PM Martha calvert, [facility] 15:28:35 Female infertil ity associat ed with anovulat ion [id number] Completed 201304/27/2021 Infertil ity, female, associat ed with anovulat ion;Robert rded Elsewher e: No Locat ion: [facility] N Practi ce ID: 0001 Gera lable Time: 04:30:00 PM Martha calvert, [facility] 15:28:58 Head and neck swelling [id number] Completed 201404/27/2021 Swelling of face;Rec orded Elsewher e: No Locat ion: [facility] Practi ce ID: 0001 Gera lable Time: 10:15:00 AM Martha calvert, [facility] 15:32:07 Gestatio n period, 24 weeks [id number] Completed 201704/27/2021 24 weeks gestatio n of pregnanc y;Practi ce ID: 0001 Martha calvert, [facility] 15:29:52 Gestatio n period, 23 weeks [id number] Completed 201704/27/2021 23 weeks gestatio n of pregnanc y;Practi ce ID: 0001 Martha calvert, [facility] 15:32:45 Pregnanc y, childbir th and puerperi um finding Completed 201704/27/2021 Oth pregnanc y related conditio ns, first trimeste r;Practi ce ID: 0001 Martha calvert, [facility] 15:29:18 Dyspnea [id number] Completed 201704/27/2021 Shortnes s of breath;P ractice ID: 0001 Martha calvert, [facility] 15:29:39 Gestatio n period, 25 weeks [id number] Completed 201704/27/2021 25 weeks gestatio n of pregnanc y;Practi ce ID: 0001 Martha calvert, [facility] 15:32:30 Gestatio n period, 29 weeks [id number] Completed 201704/27/2021 29 weeks gestatio n of pregnanc y;Practi ce ID: 0001 Martha calvert, [facility] 15:31:58 Diet educatio n Completed 201704/27/2021 Dietary counseli ng and surveill ance;Pra ctice ID: 0001 Martha calvert, [facility] 15:27:51 Dietary manageme nt surveill ance Completed 201704/27/2021 Dietary counseli ng and surveill ance;Pra ctice ID: 0001 [facility] 15:31:44 Dysfunct ional uterine bleeding Completed 201104/27/2021 Other disorder s of menstrua tion and other abnormal bleeding from female genital tract;Re corded Elsewher e: No [facility]at ion[facility] S ource: EHR Rivet Passer mara: N Dmitryti ce ID: 0001 Gera lable Time: 09:15:00 AM Martha calvert [facility] 15:28:39 Microsco pic hematuri a [id number] Completed 201104/27/2021 MICROSCO PIC HEMATURI A;Record ed Elsewher e: No Locat ion: [facility] S ource: EHR Rivet Passer mara: N Franklin ce ID: 0001 Gera lable Time: 03:00:00 PM Martha calvert [facility] 15:28:41 Mass of left breast [id number] 614850 Completed 201804/27/2021 Mass in the left breast;R ecorded Elsewher e: No Locat ion: [facility] S ource: EHR Rivet Passer mara: N Franklin ce ID: 0001 Gera lable Time: 10:00:00 AM Martha calvert [facility] 15:27:59 Blood leukocyt e number above referenc e range [id number] Completed 201404/27/2021 Elevated white blood cell count, unspecif ied;Robert rded Elsewher e: No Locat ion: [facility] S ource: EHR Rivet Passer mara: Zander Andresti ce ID: 0001 Gera lable Time: 05:15:00 PM Martha calvert [facility] 15:30:10 Breast lump [id number] Completed 201804/27/2021 Unspecif ied lump in unspecif ied breast;R ecorded Elsewher e: No Locat ion: [facility] S ource: EHR Rivet Passer mara: Zander Reid ce ID: 0001 Gera lable Time: 10:00:00 AM Martha calvert [facility] 15:32:47 Right lower quadrant pain [id number] Completed 201404/27/2021 Right lower quadrant pain;Rec orded Elsewher e: No Locat ion: [facility] S ource: EHR Rivet Passer mara: N Practi ce ID: 0001 Gera lable Time: 12:00:00 PM Martha calvert [facility] 15:29:51 Pregnanc y test positive [id number] Completed 201404/27/2021 Pregnanc y examinat ion or test, positive result;R ecorded Elsewher e: No Locat ion: [facility] S ource: EHR Rivet Passer mara: N Practi ce ID: 0001 Gera lable Time: 05:00:00 PM Martha calvert, [facility] 15:29:29 Complica tion occurrin g during pregnanc y Completed 201704/27/2021 Infectio n oth prt genitl trct in pregnanc y, third trimeste r;Practi ce ID: 0001 Marthalisa calvert, [facility] 15:29:15 Female infertil ity [id number] Completed 201304/27/2021 Infertil ity, female, of unspecif ied origin;P ractice ID: 0001 Martha calvert, [facility] 15:32:20 Dysuria [id number] Completed 201304/27/2021 Dysuria; Practice ID: 0001 Martha Darnell calvert, [facility] 15:32:04 heart finding Completed 201704/27/2021 Abnlt in heart rate and rhythm comp labor and delivery ;Practic e ID: 0001 Martha Darnell [facility] 15:29:23 Elevated blood-pr essure reading without diagnosi s of hyperten geronimo [id number] Completed 201704/27/2021 Elevated blood-pr essure reading, w/o diagnosi s of htn;Prac dmitriy ID: 0001 Martha calvert, [facility] 15:30:05 Threaten ed prematur e labor - not delivere d [id number] Completed 201404/27/2021 THRT LIA LABOR-AN TEPART;P ractice ID: 0001 Martha calvert, [facility] 15:28:53 Epigastr ic pain [id number] Completed 201404/27/2021 ABDMNAL PAIN EPIGASTR IC;Pract ice ID: 0001 Martha calvert, [facility] 15:32:39 Swelling of limb [id number] Completed 201404/27/2021 SWELLING OF LIMB;Pra ctice ID: 0001 Martha calvert, [facility] 15:32:41 Headache [id number] Completed 201404/27/2021 HEADACHE ;Practic e ID: 0001 Martha calvert, [facility] 15:29:32 Mild hypereme sis-not delivere d [id number] Completed 201404/27/2021 HYPEREME SIS-ANTE PAR Mild;Pra ctice ID: 0001 Martha calvert, [facility] 15:28:48 Lacerati on of female perineum Completed 201404/27/2021 Second degree perineal lacerati on during delivery ;Practic e ID: 0001 Martha calvert, [facility] 15:29:21 Hyperten geronimo in the obstetri c context Completed 201504/27/2021 Pre-exis ting essentia l htn comp pregnanc y, unsp trimeste r;Dmitryti ce ID: 0001 Martha calvert, [facility] 15:29:12 Problem Notes None recorded. Procedures Surgical History Date Name Laterality Status Provider Name and Address Organization Details Recorded Time 024 TOTAL HYSTERECTOMY, LAPAROSCOPIC, WITH BILATERAL SALPINGO-OOPHORECT TYRONE (SURG) completed Obed Song [facility] 12/24/2023 15:05:34 022 Date of Last Pap Smear completed Sana Bean [facility] 06/20/2023 14:08:42 022 Endometrial Biopsy completed Benedict Rick MD [address], [place], [address], [facility] 04/11/2022 22:28:30 022 endometrial biopsy completed Gabi Mauricio [facility] 12/08/2023 17:21:44 022 endoscopy completed Gabi Mauricio [facility] 02/20/2022 19:42:08 021 Breast Surgery completed Gabi Mauricio [facility] 02/20/2022 19:40:20 021 Date of Last Mammogram completed Martha Patrick [facility] 04/30/2021 15:41:08 021 completed Martha Patrick [facility] 04/30/2021 15:41:23 018 delivery completed Gabi Mauricio [facility] 02/20/2022 19:41:32 017 biopsy of vulva completed Gabi Mauricio [facility] 02/20/2022 19:41:52 016 cholecystectomy completed [facility] 02/20/2022 19:42:[address] segment monitoring completed [facility] 02/20/2022 19:43:39 013 Colposcopy completed [facility] 02/20/2022 19:44:17 013 Colposcopy completed [facility] 02/20/2022 19:42:48 012 Laparoscopy completed [facility] 02/20/2022 19:41:16 010 Date of Last Colonoscopy completed [facility] 02/20/2022 19:43:55 010 Colonoscopy completed [facility] 02/20/2022 19:42:22 008 Laparoscopy completed [facility] 02/20/2022 19:40:36 Imaging Results None recorded. Procedure Notes None recorded. Medical Equipment None Reported. Allergies Allergen ID Allergen Name Allergen Category Reaction Reaction Severity Criticality Documentation Date Start Date Code Code System Note Provider Name and Address Organization Details Recorded Time 05777 Product containin g penicilli n (product) medicatio n Not available Not available Not available 02/01/2022 77445 8001 SNOMED [facility] 2 16:33:01 01389 Reglan medicatio n Not available Not available Not available 02/01/2022 9230 RxNorm [facility] 4 16:43:02 2390 fluconazo le medicatio n Not available Not available Not available 07/10/2020 4450 RxNorm Check ed with jane rock and she sandy s aller gy. Martha Patrick null, [facility] 1 15:38:58 [facility]1 [facility] Not available Not available Not available 07/10/2020 8745 RxNorm Justine Rodriguez enrike, [facility] 0 18:51:09 Medications Name Sig Start [...] Prescrib ed Elsewher e: No Locat ion: [facility] odify By: remigio Sullivan ncounter DateTime : 04/15/20 19 12:11:22 PM Not Available Not Available Not Available buspirone 5 mg tablet take 1 tablet by oral route 3 times every day 06/13 completed Prescrib ed Elsewher e: Yes Loca tion: [facility] odify By: jeferson Sullivan ncounter DateTime : 10/19/19 16 02:45:00 PM Not Available Not Available Not Available neomycin- polymyxin -hydrocor t 3.5 mg/mL-10, 000 unit/mL-1 % ear solution 12/07 completed Not Available Not Available Not Available Colace 100 mg capsule take 1 capsule by oral route every day at bedtime as needed 04/23 completed Prescrib ed Elsewher e: Yes Loca tion: [facility] odify By: jeferson Sullivan ncounter DateTime : 03/30/20 18 04:45:00 PM Not Available Not Available Not Available naproxen 375 mg tablet TAKE 1 TABLET BY MOUTH TWICE DAILY 12/07 completed Not Available Not Available Not Available labetalol 200 mg tablet TAKE 1 TABLET BY ORAL ROUTE 2 TIMES EVERY DAY 11/19 completed Prescrib ed Elsewher e: No Locat ion: [facility] odify By: remigio franciser DateTime : 03/17/20 18 03:37:47 PM Not Available Not Available Not Available ketoconaz ole 2 % shampoo APPLY TOPICALL Y 2 TIMES A WEEK 12/02 completed Not Available Not Available Not Available Percocet 2.5 mg-325 mg tablet take 1 tablet by oral route every 6 hours as needed 03/16 completed Prescrib ed Elsewher e: Yes Loca tion: [facility] odify By: tom Sullivan ncounter DateTime : 06/22/20 12 09:46:35 AM Not Available Not Available Not Available Norvasc 10 mg tablet TAKE 1 TABLET BY ORAL ROUTE EVERY DAY 02/19 completed Prescrib ed Elsewher e: No Locat ion: [facility] odify By: ammarita Sullivan ncounter DateTime [...] Prescrib ed Elsewher e: Yes [facility] By: [email or web address] z Encoun ter DateTime : 11/19/19 12 02:30:00 PM Not [...] Prescrib ed Elsewher e: No [facility] By: [email or web address] Encounte r DateTime : 09/08/20 14 08:30:00 AM Not [...] Prescrib ed Elsewher e: Yes [facility] By: amkuhl Hector ncounter DateTime : 04/09/20 12 03:00:00 PM Not [...] Prescrib ed Elsewher e: Yes [facility]oca [facility] odify By: [email or web address] z Encoun ter DateTime : 03/30/20 18 04:45:00 PM Not Available Not Available Not Available Macrobid 100 mg capsule take 1 capsule by oral route every 12 hours with food 09/25 completed Prescrib ed Elsewher e: No Locat ion: [facility]ctor [facility] odify By: smcaley Encounnishi r DateTime : 09/08/20 14 08:30:00 AM Not Available Not Available Not Available nystatin- triamcino lone 100,000 unit/gram -0.1 % topical ointment apply by topical route 2 times every day to the affected area(s) x 5 days 04/27 completed Prescrib ed Elsewher e: No Locat ion: [facility] odify By: rufina vásquez DateTime : [...] times every day as needed 03/16 completed Prescrib ed Elsewher e: No Locat ion: [facility] odify By: tom Sullivan ncounter DateTime [...] by oral route every day 12/13 completed Prescrib ed Elsewher e: No Locat ion: [facility] odify By: [email or web address] trick En counter DateTime : 11/26/19 17 05:30:00 PM Not Available Not Available Not Available oxycodone -acetamin ophen 10 mg-325 mg tablet TAKE 1 TABLET BY MOUTH EVERY 6 HOURS NEEDED FOR PAIN active Not Available Not Available No t Available betametha sone valerate 0.1 % topical cream apply by topical route every day a thin layer to the affected area(s) 06/15 completed Prescrib ed Elsewher e: No [facility] By: ruben Sullivan ncounter DateTime [...] Prescrib ed Elsewher e: No [facility] By: ruben Sullivan abbe DateTime : 12/14/19 17 03:45:00 PM Not [...] ed Elsewher e: Yes Loca tion: [facility] odify By: remigio andrewuntmarlon DateTime : 03/30/20 18 04:45:00 PM [...] Prescrib ed Elsewher e: Yes [facility] By: isaac rios DateTime : 11/19/19 [...] Elsewher e: No Locat ion: [facility] odify By: mike melchor DateTime : 05/09/20 17 12:30:00 PM Not Available Not Available Not Available Vitamin B-6 50 mg tablet 11/26 completed Prescrib ed Elsewher e: Yes Loca tion: [facility] odify By: rogelio melchor DateTime : 08/26/20 12 02:15:00 PM Not Available Not Available Not Available Nor-Q-D 0.35 mg tablet TAKE 1 TABLET BY ORAL ROUTE EVERY DAY 02/19 completed Prescrib ed Elsewher e: No Locat ion: [facility] odify By: jeferson mcadams DateTime : 01/19/20 16 10:30:18 AM Not Available Not Available Not Available methylpre dnisolone 4 mg tablets in a dose pack 12/07 completed Not Available Not Available Not Available labetalol 100 mg tablet take 1 tablet by oral route 2 times every day 01/26 completed Prescrib ed Elsewher e: No Locat ion: [facility] odify By: bianca rios DateTime : 01/06/20 18 10:57:26 AM Not Available Not Available Not Available Vitamin D2 1,250 mcg (50,000 unit) capsule take 1 capsule by oral route every week 11/19 completed Prescrib ed Elsewher e: Yes Loca tion: Nanad sullivan [facility] odify By: remigio mcadams DateTime : [...] Elsewher e: No Locat ion: Nanda sullivan [facility] odify By: ruben mcadams DateTime : 07/03/20 18 03:30:00 PM Not Available Not Available Not Available Terazol 7 0.4 % vaginal cream insert 1 applicat orful by vaginal route every day for 7 days at bedtime 12/10 completed Prescrib ed Elsewher e: No Locat ion: Nanda sullivan [facility] odify By: ruben Sullivan ncounter DateTime : 12/05/19 17 04:15:00 PM Not Available Not Available Not Available Zoloft 25 mg tablet take 1 tablet by oral route every day 01/28 completed Prescrib ed Elsewher e: Yes Loca tion: Nanda sullivan [facility] odify By: [email or web address] h Encoun ter DateTime : 10/19/19 16 02:45:00 PM Not Available Not Available Not Available hydroxyzi ne HCl 10 mg tablet 02/03 completed Prescrib ed Elsewher e: Yes Loca tion: Nanda sullivan [facility] odify By: lizzy Encount er DateTime : 05/26/20 14 11:00:00 AM [...] ed Elsewher e: Yes Loca tion: [facility] odify By: mariaelena Cardozo ter DateTime : 04/09/20 12 03:00:00 PM Not Available Not Available Not Available Imitrex 25 mg tablet take 1 tablet by oral route once with fluids as early as possible after the onset of a migraine attack;m ay repeat after 2 hours if headache returns, not to exceed 200mg in 24hrs 10/19 completed Prescrib ed Elsewher e: Yes Loca tion: [facility] odify By: jeferson Sullivan ncounter DateTime : 08/26/20 12 02:15:00 PM Not [...] Elsewher e: Yes Loca tion: Nanda sullivan [facility] odify By: remigio mcadams DateTime : 03/30/20 04:45:00 PM Not Available Not Available Not Available Clomid 50 mg tablet take 1 tablet (50MG) by oral route every day 03/16 completed Prescrib ed Elsewher e: No Locat ion: [facility] odify By: tom mcadams DateTime : [...] Prescrib ed Elsewher e: Yes [facility] By: remigio mcadams DateTime : 11/19/19 09:45:00 AM Not Available Not Available Not Available Reglan 5 mg tablet take 1 tablet by oral route 4 times every day 30 minutes before meals and at bedtime 03/30 completed Prescrib ed Elsewher e: No Locat ion: [facility] odify By: [email or web address] z Encoun ter DateTime : 11/20/19 01:51:48 PM Not Available Not Available Not [...] Elsewher e: Yes Loca tion: Nanda sullivan [facility] odify By: symone Cardozo ter DateTime : 08/14/20 16 04:15:00 PM Not Available Not Available Not Available magnesium 200 mg tablet 11/26 completed Prescrib ed Elsewher e: Yes Loca tion: Nanda sullivan [facility] odify By: rogelio Unger r DateTime : 11/19/19 12 02:30:00 PM Not Available Not Available Not Available escitalop michelle 10 mg tablet TAKE 1 TABLET BY MOUTH DAILY 04/30 completed Not Available Not Available Not Available Calcium+D 400 mg -133.3 unit tablet 05/26 completed Prescrib ed Elsewher e: Yes Loca tion: Nanda sullivan [facility] odify By: mike Unger r DateTime : 12/16/19 13 02:30:00 PM Not Available Not Available Not Available eletripta n 20 mg tablet 12/07 completed Not Available Not Available Not Available Flexeril 5 mg tablet take 1 tablet by oral route 3 times every day 09/25 completed Prescrib ed Elsewher e: Yes Loca tion: Nanda s[facility] odify By: rogelio Unger r DateTime : 08/26/20 12 02:15:00 PM Not Available Not Available Not Available Mycamine 50 mg intraveno us solution infuse by intraven ous route every day over 08/26 completed Prescrib ed Elsewher e: Yes Loca tion: Nanda s[facility] odify By: eunice Cardozo ter DateTime : 08/26/20 12 02:15:00 PM Not Available Not Available Not Available spironola ctone 04/30 completed Not Available Not Available Not Available Acid Morning Show Host 04/30 completed Not Available Not Available Not Available Sudogest 12-hour 120 mg tablet,ex tended release TAKE 1 TABLET BY MOUTH EVERY 12 HOURS NEEDED FOR NASAL CONGESTI ON active Not Available Not Available No t Available B-12 Plus 5,000 mcg-100 mcg sublingua l tablet 11/26 completed Prescrib ed Elsewher e: Yes Loca tion: [facility]anda s[facility] odify By: emileey Encounte r DateTime : 05/25/20 13 05:00:00 PM Not Available Not Available Not Available Savella 100 mg tablet take 1 tablet (100MG) by oral route 2 times every day 02/19 completed Prescrib ed Elsewher e: No Locat ion: Nanda sullivan [facility] odify By: ammarita Sullivan ncounter DateTime : 11/19/19 12 02:30:00 [...] Elsewher e: Yes Loca tion: Nanda sullivan [facility] odify By: lizzy Cardozot er DateTime : 04/09/20 12 03:00:00 PM Not Available Not Available Not Available fiber 2 gram chewable tablet 03/16 completed Prescrib ed Elsewher e: Yes Loca tion: Nanda s[facility] odify By: tom Sullivan ncounter DateTime : 11/19/19 12 02:30:00 PM Not Available Not Available Not Available Zyrtec 10 mg capsule 02/03 completed Prescrib ed Elsewher e: Yes Loca tion: Nanda sullivan [facility] odify By: lizzy Encount er DateTime : 05/26/20 14 11:00:00 AM Not Available Not Available Not Available Kishore-Citra te 250 mg-2.5 mcg (100 unit) tablet 11/19 completed Prescrib ed Elsewher e: Yes Loca tion: [facility] odify By: remigio Sullivan ncounter DateTime : 03/30/20 18 04:45:00 PM Not Available Not Available Not Available Viibryd 10 mg tablet 12/07 completed Not Available Not Available Not Available Viibryd 20 mg tablet TAKE 1 TABLET BY MOUTH DAILY WITH FOOD 12/07 completed Not Available Not Available Not Available MEDICAL BILL PROCESSOR-PNV-DH A 28 mg iron-1 mg-200 mg capsule take 1 capsule by oral route every day 08/14 completed Prescrib ed Elsewher e: No Locat ion: [facility] odify By: symone z Encoun ter [...] Not Available Not Available Not Available Fora N20-O94-A 10-D20 strips-la ncets 30 gauge combo pack checking bs QID fasting and hour after breakfas t, lunch & dinner 04/16 completed Prescrib ed Elsewher e: No [facility] odify By: symone z Encoun ter DateTime [...] Updated DateTime 12/03/2023 162.56 cm 47.7 kg/m2 778394.6 8 g 131 mm[Hg] 84 mm[Hg] Dorys Chavarria [facility] 16:41:51 Date Recorded Systolic blood pressure Diastolic blood pressure Provider Name and Address Organization Details Last Updated DateTime 12/04/2023 128 mm[Hg] 100 mm[Hg] Gabi Mauricio [facility] 12/04/2023 16:13:19 Date Recorded Body height Body mass index (BMI) Body weight Provider Name and Address Organization Details Last Updated DateTime 12/04/2023 162.56 cm 47.2 kg/m2 287991.62 g Ledy [facility] 12/04/2023 16:04:48 Date Recorded Body height Provider Name an d Address Organization Details Last Updated DateTime 12/05/2023 162.56 cm Ledy [facility] 12/05/2023 13:47:00 Date Recorded Body height Body mass index (BMI) Body weight Systolic blood pressure Diastolic blood pressure Provider Name and Address Organization Details Last Updated DateTime 12/08/2023 162.56 cm 47 kg/m2 285959.3 1 g 131 mm[Hg] 85 mm[Hg] Gabi Mauricio [facility] 17:18:57 Date Recorded Body height Body mass index (BMI) Body weight Systolic blood pressure Diastolic blood pressure Provider Name and Address Organization Details Last Updated DateTime 12/19/2023 162.56 cm 48.1 kg/m2 775993.8 6 g 133 mm[Hg] 84 mm[Hg] Dorys Chavarria [facility] 12:40:07 Social History Question Answer Notes LastModified by Organizat ion Details LastModified Time Tobacco Smoking Status Never Smoker Kevin Grant enrike [facility] 04/19/2022 16:08:04 Do You Have An Advance Directive? No [email or web address] Information n ot available 04/30/2021 How Many Years Have You Consumed Alcohol? 20 [email or web address] Information not available 04/30/2021 Are You Blind Or Do You Have Difficulty Seeing? No [email or web address] Information n ot available 04/30/2021 What Is Your Level Of Caffeine Consumption? Moderate Information not available 04/30/2021 How Much Tobacco Do You Chew? None [email or web address] Information not available 04/30/2021 In The 14 Days Before Symptom Onset, Have You Had Close Contact With A Laboratory-confirm ed COVID-19 While That Case Was Ill? No [email or web address] Information n ot available 04/30/2021 In The 14 Days Before Symptom Onset, Have You Had Close Contact With A Person Who Is Under Investigation For COVID-19 While That Person Was Ill? No [email or web address] Information not available 04/30/2021 Have You Been To An Area Known To Be High Risk For COVID-19? No [email or web address] Information not available 04/30/2021 Are You Deaf Or Do You Have Serious Difficulty Hearing? No [email or web address] Information not available 04/30/2021 What Type Of Diet Are You Following? REGULAR [email or web address] Information n ot available 04/30/2021 What Is The Highest Grade Or Level Of School You Have Completed Or The Highest Degree You Have Received? [id number] [email or web address] Information not available 04/30/2021 Are There Any Guns Present In Your Home? No [email or web address] Information not available 04/30/2021 Do You Use Protection During Sex? No Information not available 04/30/2021 Do You Use Your Seat Belt Or Car Seat Routinely? Yes [email or web address] Information not available 04/30/2021 Do You Have Smoke And Carbon Monoxide Detectors In Your Home? Yes [email or web address] Information not available 04/30/2021 At What Age Did You Start Smoking Tobacco? 16 [email or web address] Information not available 04/30/2021 How Much Tobacco Do You Smoke? No [email or web address] Information not available 04/30/2021 Do You Use Sunscreen Routinely? Yes [email or web address] Information not available 04/30/2021 How Many Years Have You Smoked Tobacco? 10 [email or web address] Information not available 04/30/2021 Have You Used IV Drugs? No [email or web address] Information not available 04/30/2021 Do You Have Difficulty Walking Or Climbing Stairs? No [email or web address] Information not available 12/08/2023 Sex: Unknown Functional Status Question Answer Note LastModified by Organizat ion Details LastModified Time Do you use any illicit or recreational drugs? No [email or web address] Information not available 04/30/2021 What is your level of alcohol consumption? Occasional [email or web address] Information not available 04/30/2021 Are you able to walk? YESWOREST [email or web address] Information not available 04/30/2021 Are you able to care for yourself? 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 No [email or web address] Information not available 12/08/2023 What is your exercise level? Occasional nilda Information not available 04/30/2021 Mental Status Question Answer Note LastModified by Organization D etails LastModified Time Do you feel stressed (tense, restless, nervous, or anxious, or unable to sleep at night)? [id number] [email or web address] Information not available 02/01/2022 Family History Relationship Description Onset Age of this Age Resolved Age Notes LastModified by Organization Details LastModified Time Paternal Grandmother Family history of breast cancer [email or web address] Not available 2023 12:36:17 Paternal Grandmother Malignant neoplasm of lung [email or web address] Not available 2020 16:47:00 Paternal Grandmother Malignant neoplasm of lung Not available 2023 12:36:17 Mother Cyst of ovary [email or web address] Not available 2023 12:36:17 Mother Disorder of thyroid gland [email or web address] Not available 2020 16:47:00 Mother Disorder of thyroid gland [email or web address] Not available 2023 12:36:17 Paternal Uncle Myocardial infarction [email or web address] Not available 08/03 16:47:00 Paternal Uncle Myocardial infarction [email or web address] Not available 12/18 12:36:17 Medical History Condition Response Allergies (Food, seasonal, environmental ) N Other Y Breast Cancer N Drug/Latex Allergies/Reactions Y Blood Transfusion N Lung Disease N Dermatologic Disorders N Defects or Inherited Disease N Breast Problem Y Gestational Diabetes N Hematologic disorders N Anesthesia Complications N History of STI Y Deep Vein Thrombosis N Polycystic ovary syndrome Y Anxiety Disorder Y Autoimmune disease N Arthritis N Polyps N Infertility N History of abnormal pap Y Acid Reflux (GERD) Y Cancer N Varicosities N Stroke N Neurologic/Epilepsy Y Endometriosis N High Cholesterol N Fibromyalgia Y Headaches Y Kidney Disease N Heart Problems N [...] Diagnosis/Indication Diagnosis SNOMED-CT Code Diagnosis ICD10 Code Diagnosis Note [id number] Kamilah Mai CNM [address] [address] 07/11/2020 09:32:22 07/18/2020 16:00:43 Vaginitis 44423079 N76.0 Discussed use of mild soap like dove or ivory, cotton underwear w/out dye, hypoallerg enic detergent, wipe from front to back, avoid tub baths, keep perineum clean and dry, d/c use of baby wipes. Encouraged daily intake of yogurt or womens health probiotic. Internal and external affirm collected. Will treat with diflucan d/t itching while awaiting results. If cyst returns or itching does not resolve with treatment please return for further evaluation . (unable to access next gen chart d/t being at [facility]) [id number] Kamilah Mai CNM [facility] [address] [address] 04/30/2021 15:27:17 05/01/2021 16:20:30 Abnormal uterine bleeding 0276059950 9100 N93.9 Labs and u/s. Return to discuss results and determine plan of care. 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 She was found to have a large ovarian cyst and another moderate-s ized ovarian cyst on the same ovary. We talked about those findings in the etiology of ovarian cyst. Talked about her heavy bleeding. We talked about her menstrual cycle. We talked about ovulation and hormones. Talked about solutions for heavy bleeding. She has severe menorrhagi a and gets blood on her bedding and clothing. Talked about the implicatio ns of obesity on her health and her hormones. We agreed to follow-up on her ovarian cyst. We reviewed her ultrasound results and looked at the images together. She has some fibroid tumors of the uterus. Spent more than 25 minutes face-to-fa ce discussing multiple complex topics. [id number] Benedict Rick MD [facility] [address],[place] [address] 07/09/2021 09:14:36 07/09/2021 10:18:55 Abnormal uterine bleeding 2461201844 9100 N93.9 N83.292 [id number] Benedict Rick MD [facility] [address],[place] [address] 08/03/2021 16:23:33 08/04/2021 11:43:29 Cyst of ovary 64952756 N83.209 impression : This patient is a 36-year-ol d female who presents for ultrasound follow-up. She has an ovarian cyst that is smaller and less complicate d than previously seen. We have agreed to stay to observe for symptoms. She will follow up as needed. We reviewed the images together. [id number] Lori Almonte [facility] [address],[place] [address] 02/01/2022 16:12:58 02/01/2022 17:03:53 Irregular periods 68560162 N92.6 [id number] Benedict Rick MD [facility] [address],[place] [address] 02/07/2022 17:25:22 02/08/2022 15:12:07 Irregular periods 71129750 N92.6 [id number] Benedict Rick MD [facility] [address],[place] [address] 03/22/2022 16:05:40 03/22/2022 17:24:19 Dysmenorrhea 932453393 N94.6 Menorrhagia 974290887 N9 2.0 Cyst of ovary 95853632 N 83.209 this patient is a 36-year-ol d female presents for follow-up on pelvic ultrasound and severe dysmenorrh ea. We talked about her ultrasound results. She has a cystic area on the endometria l myometrial junction. This appears benign and is likely a significan t. She has some calcified uterine fibroids. The cyst on her left ovary his remained unchanged essentiall y. There were actually 2 cysts there. She has severe pain at the time of her menses. She is considerin g some treatment options. She has few medical options that are reasonable . She is consenting hysterecto my, we talked about endometria l ablation because she does have severe menorrhagi a as well. She has accidents getting blood on her bedding and clothing. She is going to return for endometria l biopsy. She is going to have a follow-up ultrasound 3 months for the cystic structure. [id number] Benedict Rick MD [facility] [address],[place] [address] 04/11/2022 17:27:12 04/12/2022 15:23:40 Screening procedure 87775406 Z13.9 Abnormal u terine bleeding 5032747361 9100 N93.9 N83.292 endometria l biopsy was performed. She tolerated the procedure well. [id number] Savannah Downing [facility] [address] [address] 04/19/2022 16:07:08 04/22/2022 16:26:47 Gynecologic examination 18104970 Z11.51 Z11.3 Z11.8 Take Calcium with Vitamin D 1200mg daily if not receiving in daily diet. It is strongly advised to have an annual flu shot and up can obtain at most pharmacies . If you have not had a TDap shot in the last 10 years you should obtain one as well. Discussed with patient & provided with informatio n regarding Gardisil vaccine to prevent the 4 strains for HPV that cause cervical cancer if under age 26. Encourage safe sexual practices, to use condoms and limit partners if not already in a monogamous relationsh ip. Do monthly self breast exams. Have mammogram yearly or every other year depending on family history. BRCA testing is now available for patients with strong genetic history of female cancer. If interested contact the office. Engage in daily exercise of low impact aerobic exercise 45-60 minutes 4-5 times weekly. Avoid tobacco and illicit drugs as well as using moderation with alcohol intake less than 1-2 8 oz beverages daily. This lifestyle behavior pattern will lead to less health conditions and longer life span. If BMI greater than 25 weight watchers or dietary consult advised. Patient received above instructio ns, and questions have been answered. If you have any questions please call or respond to this email. Patient was made aware of the patient portal and may obtain a paper copy of today's plan if desired. Pap/hpv sent STD Screen sent Genetic Screen discussed Colon Screen na Dexa Screen na Routine Labs UTD PCPMammo (neg in past) [id number] Savannah Downing [facility] [address] [address] 06/20/2023 13:53:11 06/23/2023 15:20:32 Gynecologic examination 95969431 Z11.51 Z11.3 Z11.8 Take Calcium with Vitamin D 1200mg daily if not receiving in daily diet. It is strongly advised to have an annual flu shot and up can obtain at most pharmacies . If you have not had a TDap shot in the last 10 years you should obtain one as well. Discussed with patient & provided with informatio n regarding Gardisil vaccine to prevent the 4 strains for HPV that cause cervical cancer if under age 26. Encourage safe sexual practices, to use condoms and limit partners if not already in a monogamous relationsh ip. Do monthly self breast exams. Have mammogram yearly or every other year depending on family history. BRCA testing is now available for patients with strong genetic history of female cancer. If interested contact the office. Engage in daily exercise of low impact aerobic exercise 45-60 minutes 4-5 times weekly. Avoid tobacco and illicit drugs as well as using moderation with alcohol intake less than 1-2 8 oz beverages daily. This lifestyle behavior pattern will lead to less health conditions and longer life span. If BMI greater than 25 weight watchers or dietary consult advised. Patient received above instructio ns, and questions have been answered. If you have any questions please call or respond to this email. Patient was made aware of the patient portal and may obtain a paper copy of today's plan if desired. Pap/hpv sentSTD Screen declinedGe netic Screen discussedC olon Screen naDexa Screen naRoutine LabsPCP Menstrual period late 84 063849 N92.6 Uses for oligomenor luis enrique if menses does not happen on it's own.RF sent x 1yrUnderst ands importance of this therapy to prevent risks of precancer/ cancers of uterine/en do lining. [id number] Benedict Rick MD [facility] [address] [address] 12/03/2023 16:31:11 12/04/2023 05:23:04 Menorrhagia 286731774 N92.0 38-year-ol d female with severe menorrhagi a. We had previously agreed to perform hysterecto my. She decided to wait. Her problem has persisted. She has pain and terrible menorrhagi a. She has accidents. She is blood on her bedding and clothing. Affects her quality of life. She has missed work due to her bleeding and her pain. She is limited in her treatment options due to her weight. She would like definitive surgical treatment. We will proceed with total laparoscop ic hysterecto my and bilateral salpingo-o ophorectom y. She understand s the risks , benefits and alternativ es to taking out the ovaries or leaving them in.n 40 minutes face-to-fa ce. More than 50% was counseling . We made a decision to perform surgery. [id number] [facility] [address] [address] 12/04/2023 15:58:31 12/05/2023 08:25:09 Pain in pelvis 57387730 R10.2 Today we agreed to ketorolac injections today and tomorrow for her severe dysmenorre a.May use zofran prn Counseled on medication R/B's, Most common side effects, & use. All questions were answered to patient satisfacti on. Patient is to contact office or go to nearest ED/Urgent care if fever >/= 100.1, pain, excessive bleeding, unusual drainage or swelling in area of concern; or experienci ng worsening sx's or new onset of concerning sx's. Understand ing verbalized . All questions answered to patient satisfacti on. Time spent in visit is a total of 22 mins with at least 50% of visit consisting of counseling [place] [id number] Benedict Rick MD [facility] [address] [address] 12/08/2023 16:58:09 12/09/2023 07:01:49 Pain in pelvis 63952105 R10.2 this patient is a 38-year-ol d female who presents for pelvic pain. She feels like her bladder has pinching. She has had blood in her urine. Microscopi c blood. Though it has been culture negative previously . We intend to culture today. She will also be treated for urinary tract infection. We reviewed her ultrasound and her medical history. We talked about her pain. We talked about her surgical plan. She has a plan for hysterecto my here in the very near future. We agreed to observe her pain, controlled with tramadol, and to see how the pain was affected by the hysterecto my. It may be related to that. She has fibromyalg ia. We spent 20 minutes face-to-fa ce. More than 50% was counseling . [id number] Benedict Rick MD [facility] [address] [address] 12/19/2023 12:35:47 12/19/2023 13:03:52 Pain in pelvis 24242732 R10.2 this patient is a 38-year-ol d female with severe pelvic pain. We have agreed to perform total laparoscop ic hysterecto my bilateral salpingo-o ophorectom y. She understand s the risks, benefits, and alternativ es. She is completed the informed consent process and is ready to proceed. Health Concerns Section Related Observation LastModified by Organization Detai ls LastModified Time None Recorded Concern Status LastModified by Organization Details LastModified Time None Recorded Advance Directives Directive N: Payers Insurance Date Sequence Insurance Name Policy Number Policy Islas Covered Member ID Islas Member ID Guarantor Name 12/30/2023 1 [facility] [id number] Araceli Cedeno [id number] Araceli Cedeno Notes Date Note Type Note Provider Name and Address Organization Details Recorded Time 12/03/2023 text/html 38-year-old fema le with severe menorrhagia. We had previously agreed [...] ovaries or leaving them in.n 40 minutes [id number]. More than 50% was counseling. We made a decision to perform surgery. Benedict Rick MD [address], [place], [address], [facility] 12/03/2023 19:00:53 12/04/2023 text/html Araceli is [...] N/V/F/C/DNeg Vag d/c, odor, irritation, itching Savannah Downing, [facility]- [address], [place], [address], [facility] 12/11/2023 12:24:15 12/08/2023 text/html this patient [...] She has fibromyalgia. We spent 20 minutes [id number]. More than 50% was counseling. Benedict Rick MD [address], [place], [address], [facility] 12/08/2023 18:11:25 12/19/2023 text/html 38-year-old fema [...] infection. Benedict Rick MD [address], [place], [address], [facility] 12/19/2023 12:56:09 OBGyn Episode Ob Episode Information Episode Created Date Number of Fetuses Patient Bloodtype Patient rh Status Prepregnancy Weight lbs Domestic Partner Domestic Partner Phone Father Name Offc Spec Status 07/11/20 20 1 CLOSED Fetus Data First Name Last Name Admitted to NICU Weight (g) Sex Living Outcome Pediatric Complications Fetus ID Race Codes Race Delivery Type 3089.86 8704 M Full Term 5313 Primary Curtis Calculation Initial Curtis Date Initial Exam Date Initial Exam Provider Initial Ultrasound Date Last Menstrual Period Date Ultra Sound Weeks Gestation 0 Eighteen To Twenty Week Curtis Update [...] Domestic Partner Domestic Partner Phone Father Name Offc Spec Status 07/11/20 20 1 CLOSED Fetus Data First Name Last Name Admitted to NICU Weight (g) Sex Living Outcome Pediatric Complications Fetus ID Race Codes Race Delivery Type 3373.36 3704 F Full Term 5314 Vaginal Delivery Curtis Calculation Initial Curtis Date Initial Exam Date Initial Exam Provider Initial Ultrasound Date Last Menstrual Period Date Ultra Sound Weeks Gestation 0 Eighteen To Twenty Week Curtis Update [...]
--- OUTSIDE RECORDS SUMMARY | 2025-03-11 14:40 | XMS_ITS ---
Author Organization [facility] [employer] [facility] Address [facility] [address] [address] Care Team Providers Care Belt Maker Name Role Phone Mercedes GUZMAN, Amol Primary Care Provider Eliza Hope [phone] REASON FOR VISIT Pt is still in ER since yesterday. Social History Sex Assigned At : Social History Observation Description Sex Assigned At Female Encounters Encounter Location Date Provider Diagnosis [facility] [employer] [address] [address] 10/22/2024 Eliza Jordan Plan Of Treatment No Information Progress Notes * SUMMER PHILLIPS LDOB:1984 (39 yo F)Acc No.[id number]:10/22/2024 Patient: SUMMER MCGEE Provider: Santo JORDAN MD :1985 A ge:39 Y S ex:Female Date:10/22/2024 Address:[address] [facility] Pcp:Amol Long MD Subjective: * Chief Complaints: * 1 . Pt is still in ER since yesterday.. * Medical History: Objective: * Vitals: Assessment: Plan: * Treatment: * Billing Information: * Visit Code: * Procedure Codes: * Electronic signature of Vikas Jordan MD on 03/11/2025 at 02:40 PM CDT Sign off status: Pending * Provider: Santo JORDAN MD Date: 10/22/2024 Generated for Olivia tello/Avila/Shreyasmitting on: 0 03/11/2025 02:40 PM CDT
[2025-03-11 15:00] VITALS: PULSE 80
[2025-03-11 15:01] VITALS: BP 129/84; PULSE 76; RESP 14; O2SAT 96
--- NOTE | 2025-03-11 15:05 | ED_ITS ---
HPI - General Adult General Chief complaint: Unspecified Stated complaint: Left Leg/Calf Pain Time Seen by Provider: 03/11/25 14:36 Source: patient Mode of arrival: ambulatory Limitations: no limitations History of Present Illness HPI narrative: Patient is a 39 y/o female, with PMH of anxiety/depression, HTN, morbid obeseity, PCOS, prediabetes, fibromyalgia, who presents to the ED with c/o LLE pain. Reports deep pain in her L calf down to her heel, and upward to posterior thigh towards groin. No trauma or fall. Has not taken anything for the pain. Denies swelling. Denies previous hx of DVT. Denies numbness/tingling. Patient also reports vaginal bleeding that began around 2pm. States she had a hysterectomy and oophorectomy 1 year ago and has not had any issues with bleeding since that time. Reports mild vaginal pain, itchiness, dysuria. Does have hx of previous UTIs. Denies concern for STDs. Reports she had 2 doses of fluconazole a few weeks ago for oral thrush. Hx of prediabetes. Related Data Home Medications ?Medication ?Instructions ?Recorded ?Confirmed ?Last Taken ?Type lisinopril 10 mg tablet 10 mg PO DAILY 10/11/22 03/03/25 12/23/23 History multivitamin 1 tablet PO DAILY 12/22/23 03/03/25 12/20/23 History omega-3 fatty acids 1,000 mg 1,000 mg PO DAILY 04/22/24 03/03/25 Unknown History capsule cyclobenzaprine 10 mg tablet mg PO 03/03/25 03/03/25 Unknown History metoprolol succinate 100 mg mg PO 03/03/25 03/03/25 Unknown History tablet,extended release 24 hr Allergies Allergy/AdvReac Type Severity Reaction Status Date / Time sulfamethoxazole (From Allergy Severe Rash Verified 03/11/25 14:46 Bactrim) trimethoprim (From Bactrim) Allergy Severe Rash Verified 03/11/25 14:46 duloxetine Allergy Intermediate Itching Verified 03/11/25 14:46 amlodipine Allergy Unknown peripheral Verified 03/11/25 14:46 edema promethazine Allergy Unknown Skin Verified 03/11/25 14:46 Reaction nirmatrelvir (From Paxlovid) AdvReac Severe cardiac Verified 03/11/25 14:46 ritonavir (From Paxlovid) AdvReac Severe cardiac Verified 03/11/25 14:46 latex AdvReac Itching Verified 03/11/25 14:46 neomycin, polymyxin and AdvReac Intermediate Other Uncoded 03/11/25 14:46 hydrocortisone otic drops Review of Systems 2 Review of Systems: All systems reviewed & are unremarkable except as noted in HPI. All systems reviewed & are unremarkable except as noted in HPI and below PMFSH Past Medical History Medical History Endometriosis seen on rachel/bso path 2023 Otitis externa of left ear Otorrhea, left ear Fungal otitis externa Chest wall pain Otorrhea, left ear Nasal congestion Prediabetes 3.9.22 hgba1c 5.9 COVID Bruxism Otalgia of both ears Ear itching IBS (irritable bowel syndrome) Otitis externa of right ear Esophageal reflux Benign essential hypertension Acute gastritis Fibromyalgia PVC (premature ventricular contraction) Panic disorder without agoraphobia Surgical History Surgical History S/P [facility] 3.27.24 History of placement of ear tubes H/O wisdom tooth extraction H/O dilation and curettage H/O: section Hx of cholecystectomy Family History Family History Other Cerebrovascular accident Diabetes mellitus Family history of malignant neoplasm Hypertension Social History Social History Smoking packs per day: 1 Smoking cigarettes per day: 20.0 Years smoked: 5 Smoking pack-years: 5.00 Smoking status: Former smoker Alcohol intake: never Alcohol use details: occasionally Substance use: never Substance use type: marijuana Other substance usage details: EDIBLES Do You Feel Safe in your Home?: Yes Lack of Transportation: No Lack of Food: Never True Current Housing: I Have Housing Concerned About Future Housing: No Difficulty Paying Gas/Electric Bills: No Difficulty Paying for Meds: No Currently Unemployed: No Education: Bachelor's Degree Difficulty w/ Childcare or Family Care: No Living arrangements: with family Spiritual care concerns: No Exam 2 Narrative: GENERAL: Well appearing, morbidly obese with BMI of 48.0, non-toxic, in no acute distress. HEAD: Normocephalic, atraumatic. RESPIRATORY: Airway patent, respirations nonlabored. Clear to auscultation bilaterally, no rales, rhonchi, wheezing. CARDIOVASCULAR: Regular rate and rhythm without murmurs, rubs, or gallops. Pedal pulses are intact. ABD: No significant tenderness throughout abdomen, soft, nondistended, normoactive BS PELVIC: Normal external genitalia. Vaginal vault appears unremarkable. No evidence of bleeding. Normal physiologic discharge. Not able to reach elevate back to cough, but no abnormalities noted. No genital lesions. No evidence of prolapse. MUSCULOSKELETAL: Moves all extremities. No gross deformities. Minimal diffuse tenderness throughout left lower extremity. No appreciable swelling throughout leg. No swelling or warmth. Sensation intact throughout extremity. SKIN: Warm, dry, normal color. NEURO: A&O X3. Speech clear. No ataxic movements. PSYCHIATRIC: Appropriate mood and affect. Normal interaction. Course Vital Signs Vital signs: Vital Signs Temperature 97.8 F 03/11/25 14:40 Pulse Rate 78 03/11/25 14:40 Respiratory Rate 14 03/11/25 14:40 Blood Pressure 148/86 H 03/11/25 14:40 Pulse Oximetry 97 03/11/25 14:40 Oxygen Delivery Room Air 03/11/25 14:40 Temperature 97.8 F 03/11/25 17:20 Pulse Rate 79 03/11/25 17:20 Respiratory Rate 18 03/11/25 17:20 Blood Pressure 112/80 03/11/25 17:20 Pulse Oximetry 96 03/11/25 17:20 Oxygen Delivery Room Air 03/11/25 14:40 Medical Decision Making [facility] Narrative Medical decision making narrative: Patient presented to ED with left lower extremity pain, also reporting vaginal bleeding status post hysterectomy. Vital signs are stable upon arrival. Patient is in no acute distress. No obvious signs of DVT on exam. No swelling, erythema, warmth. Venous Doppler ultrasound was obtained and without evidence of DVT. Laboratory studies are otherwise reassuring. No leukocytosis or anemia. H&H is very stable. Stable electrolytes and kidney function. Urine with 1+ blood, 2+ leuk esterase, 21-50 WBC. Given acute symptomatology, will treat for urinary tract infection. Sent for culture. Kevin started in the ED. Pelvic exam was performed and without acute abnormalities. Does not show any evidence of bleeding. Suspicious for UTI causing bleeding, did recommend that patient have follow-up with OBGYN for further evaluation. Will discharge on Keflex. Patient given return precautions. She agrees with plan, feels comfortable going home. Discharged in stable condition. Medical Records Medical records reviewed: Yes I reviewed the external patient's medical records. Vital Signs Vital Signs: Vital Signs Temperature 97.8 F 03/11/25 14:40 Pulse Rate 78 03/11/25 14:40 Respiratory Rate 14 03/11/25 14:40 Blood Pressure 148/86 H 03/11/25 14:40 Pulse Oximetry 97 03/11/25 14:40 Oxygen Delivery Room Air 03/11/25 14:40 Temperature 97.8 F 03/11/25 17:20 Pulse Rate 79 03/11/25 17:20 Respiratory Rate 18 03/11/25 17:20 Blood Pressure 112/80 03/11/25 17:20 Pulse Oximetry 96 03/11/25 17:20 Oxygen Delivery Room Air 03/11/25 14:40 Lab Data Lab results reviewed: Yes I reviewed the patient's lab results. 03/11/25 15:39 03/11/25 15:39 Labs: Lab Results 03/11/25 03/11/25 Range/Units 15:39 16:10 WBC 7.9 (4.5-10.0) K/mm3 RBC 5.16 (4.2-5.4) M/mm3 Hgb 13.9 (12.0-15.0) g/dL Hct 42.0 (37.0-47.0) % MCV 81.4 (80-100) fl MCH 26.9 (26-34) pg MCHC 33.1 (32-36) g/dl RDW 13.6 (11.5-14.5) % Plt Count 292 (150-375) k/mm3 MPV 10.0 (7.4-10.4) fl Immature Gran % (Auto) 0.3 (0-0.5) % Neut % (Auto) 54.1 (45.5-73.1) % Lymph % (Auto) 35.2 (18.3-44.2) % [place] % (Auto) 6.6 (2.6-8.5) % Eos % (Auto) 2.7 (0-4.4) % Baso % (Auto) 1.1 (0.2-1.2) % Lymph # (Auto) 2.77 (0.9-3.2) K/mm3 [place] # (Auto) 0.5 (0.1-0.6) K/mm3 Eos # (Auto) 0.2 (0-0.3) K/mm3 Baso # (Auto) 0.1 (0.0-0.1) K/mm3 Abs Immat Gran (auto) 0.02 (0.00-0.031) K/mm3 Absolute Neuts (auto) 4.3 (1.3-6.7) K/mm3 Absolute Nucleated RBC 0.000 (0.0-0.012) K/mm3 Nucleated RBC % 0.0 (0.0-0.2) % PT 12.9 (11.1-14.7) Seconds INR 1.0 APTT 34.3 (22.3-36.8) Seconds Sodium 136 L (137-145) mmol/L Potassium 3.6 (3.4-5.0) mmol/L Chloride 102 (98-107) mmol/L Carbon Dioxide 27 (22-30) mmol/L Anion Gap 7 (4-12) mmol/L BUN 12 (7-17) mg/dL Creatinine 0.74 (0.7-1.0) mg/dL Estim Creat Clear Calc 115 ml/min Estimated GFR > 60 (59 - ) Glucose 139 H (65-110) mg/dL Calcium 9.4 (8.4-10.2) mg/dL Total Bilirubin 0.9 (0.2-1.3) mg/dL AST 31 (14-36) U/L ALT 62 H (6-35) U/L Alkaline Phosphatase 45 (38-126) U/L Total Protein 7.3 (6.3-8.2) g/dL Albumin 4.2 (3.5-5.1) g/dL Urine Color Yellow (Yellow) Urine Appearance Clear (Clear) Urine pH 7.0 (5.0-9.0) Ur Specific [place] 1.010 (1.001-1.035) Urine Protein Negative (Negative) mg/dL Urine Glucose (UA) Negative (Negative) mg/dL Urine Ketones Negative (Negative) mg/dL Ur Blood (Man) 1+ H (Negative) Urine Nitrate Negative (Negative) Urine Bilirubin Negative (Negative) Urine Urobilinogen 0.2 (<2.0) mg/dL Leukocyte Esterase Rfl 2+ H (Negative) DAVIDSON/UL Urine RBC 3-5 H (0-2) /hpf Urine WBC 21-50 H (0-3) /hpf Ur Squamous Epith Cells None seen (Few) /hpf Urine Bacteria None seen /hpf Urine Casts 0-2 Imaging Data Attestation: I personally reviewed and interpreted this imaging study as follows: Radiologist's impression: ITS Impressions Venous Doppler Study 03/11/25 16:09 IMPRESSION: Negative left lower extremity venous US. No deep vein thrombosis. Discharge Plan Discharge Clinical Impression: Strain of lower extremity UTI (urinary tract infection) Qualifiers: Urinary tract infection type: acute cystitis Hematuria presence: with hematuria Qualified Code(s): N30.01 - Acute cystitis with hematuria Patient Disposition: Home Condition: Stable Instructions: Antibiotic Form, Urinary Tract Infection in Women (ED), Pelvic Pain in Women (ED), Leg Sprain (ED) Additional Instructions: Take antibiotics as prescribed for urinary tract infection. Patient Language: Bulgarian Prescriptions: New cephalexin 500 mg capsule 500 mg PO Q6H 7 Days Qty: 28 0RF No Action lisinopril 10 mg tablet 10 mg PO DAILY Rx Instructions: HAS NOT BEEN TAKING PAST COUPLE WEEK BP LOW albuterol sulfate 90 mcg/actuation HFA aerosol inhaler 2 puff inhalation Q4-6H PRN (Reason: shortness of breath or wheezing) 30 Days Qty: 8.5 0RF clobetasol 0.05 % solution See Rx Instructions .ROUTE .COMPLEX Qty: 50 0RF Dose Instruction: APPLY TOPICALLY TO THE AFFECTED AREA DAILY Rx Instructions: APPLY TOPICALLY TO THE AFFECTED AREA DAILY triamterene-hydrochlorothiazid 37.5-25 mg tablet 1 tablet PO DAILY Qty: 90 1RF alprazolam 0.25 mg tablet 0.25 mg PO BID PRN (Reason: anxiety) Qty: 20 1RF metoprolol succinate 100 mg tablet extended release 24 hr PO cyclobenzaprine 10 mg tablet PO fluconazole 150 mg tablet 150 mg PO DAILY Qty: 2 0RF Rx Instructions: Take one tablet today. May repeat in 3 days if symptoms not improved. multivitamin Tablet 1 tablet PO DAILY metoprolol succinate 50 mg tablet extended release 24 hr 150 mg PO DAILY Qty: 90 5RF omega-3 fatty acids 1,000 mg capsule 1,000 mg PO DAILY sumatriptan succinate 25 mg tablet See Rx Instructions PO .COMPLEX Qty: 14 0RF Rx Instructions: take 1 tab at onset of headache; if no relief may repeat 1 tab after at least 2 hrs; max = 4 tabs/24 hr PO hyoscyamine sulfate 0.125 mg tablet See Rx Instructions .ROUTE .COMPLEX Qty: 30 5RF Dose Instruction: TAKE 1 TABLET BY MOUTH FOUR TIMES DAILY Rx Instructions: TAKE 1 TABLET BY MOUTH FOUR TIMES DAILY metformin 500 mg tablet extended release 24 hr 500 mg PO BID Qty: 180 1RF gabapentin 300 mg capsule 300 mg PO TID Qty: 90 3RF duloxetine 60 mg capsule,delayed release(DR/EC) 60 mg PO DAILY Qty: 90 1RF buspirone 15 mg tablet See Rx Instructions PO TID Qty: 90 3RF Rx Instructions: 2 tablets (30 mg) in the morning and 15 mg (1 tablet) in the evening pantoprazole 40 mg tablet,delayed release (DR/EC) See Rx Instructions .ROUTE .COMPLEX Qty: 180 1RF Dose Instruction: TAKE 1 TABLET BY MOUTH TWICE DAILY Rx Instructions: TAKE 1 TABLET BY MOUTH TWICE DAILY Follow-up/Referrals: Tom Fiore MD [Physician] - (OBGYNDeedee Clemens MD [Primary Care Provider] - Time of Disposition: 17:22
[2025-03-11] MEDS: ONDANSETRON HCL ODT 4 MG TABLET PO (15:30)
[2025-03-11] MEDS: ACETAMINOPHEN 500 MG TABLET 1000 MG PO (15:30)
[2025-03-11 15:45] VITALS: BP 123/74; PULSE 79; RESP 18; O2SAT 97
[2025-03-11 15:45] LABS: Basophils Absolute Auto 0.1 K/mm3 (0.0-0.1); Basophils Percent Auto 1.1 % (0.2-1.2); Eosinophils Absolute Auto 0.2 K/mm3 (0-0.3); Eosinophils Percent Auto 2.7 % (0-4.4); Hemoglobin 13.9 g/dL (12.0-15.0); Immature Granulocyte Absolute 0.02 K/mm3 (0.00-0.031); Immature Granulocyte Percent A 0.3 % (0-0.5); Lymphocytes Absolute Auto 2.77 K/mm3 (0.9-3.2); Lymphocytes Percent Auto 35.2 % (18.3-44.2); Mean Corpuscular HGB Conc 33.1 g/dl (32-36); Mean Corpuscular Hemoglobin 26.9 pg (26-34); Mean Corpuscular Volume 81.4 fl (80-100); Monocytes Absolute Auto 0.5 K/mm3 (0.1-0.6); Monocytes Percent Auto 6.6 % (2.6-8.5); Neutrophils Absolute Auto 4.3 K/mm3 (1.3-6.7); Neutrophils Percent Auto 54.1 % (45.5-73.1); Platelet Count Result 292 k/mm3 (150-375); Red Blood Count 5.16 M/mm3 (4.2-5.4); Red Cell Distribution Width 13.6 % (11.5-14.5); White Blood Count 7.9 K/mm3 (4.5-10.0)
--- NOTE | 2025-03-11 15:49 | PC.NURSE ---
Unable to establish IV after multiple attempts by several RN's
--- NOTE | 2025-03-11 15:49 | PC.NURSE ---
Ultrasound at bedside
[2025-03-11 15:54] LABS: Alanine Aminotransferase 62 U/L (6-35); Albumin Level 4.2 g/dL (3.5-5.1); Alkaline Phosphatase 45 U/L (38-126); Anion Gap 7 mmol/L (4-12); Aspartate Amino Transferase 31 U/L (14-36); Bilirubin,Total 0.9 mg/dL (0.2-1.3); Blood Urea Nitrogen 12 mg/dL (7-17); Calcium 9.4 mg/dL (8.4-10.2); Carbon Dioxide 27 mmol/L (22-30); Chloride 102 mmol/L (98-107); Estimated CRCL calculation 115 ml/min; Estimated Glomerular Filt Rate > 60; Glucose 139 mg/dL (65-110); Potassium 3.6 mmol/L (3.4-5.0); Sodium 136 mmol/L (137-145); Total Protein 7.3 g/dL (6.3-8.2)
[2025-03-11 15:59] LABS: Partial Thromboplastin Time 34.3 Seconds (22.3-36.8); Prothrombin Time 12.9 Seconds (11.1-14.7)
[2025-03-11 16:20] LABS: Add Urine Microscopic? YES; Appearance Urine Clear (Clear); Bacteria Urine None Seen /hpf; Bilirubin Urine Negative (Negative); Blood Urine 1+ (Negative); Color Urine Yellow (Yellow); Glucose Urine UA Negative (Negative); Ketones Urine Negative (Negative); Leukocyte Esterase Ur 2+ LEU/UL (Negative); Nitrate Urine Negative (Negative); Non Pathogenic Casts 0-2; Protein Urine Negative (Negative); Squamous Epithelial Cell Urine None Seen /hpf (Few); Urobilinogen Urine 0.2 mg/dL (<2.0); WBC Urine 21-50 /hpf (0-3)
[2025-03-11] MEDS: CEPHALEXIN 500 MG CAPSULE PO (17:17)
[2025-03-11] MEDS: KETOROLAC (*BKC) 60 MG/2 ML VIAL IM (17:17)
[2025-03-11 17:20] VITALS: BP 112/80; PULSE 79; RESP 18; TEMP 36.6; O2SAT 96
--- OUTSIDE RECORDS SUMMARY | 2025-03-11 17:33 | XMS_ITS | Referral Summary ---
Author Organization [facility] [address] Address [address] [place] [address] Care Team Providers Care Windows Server Engineer Name Role Phone Deedee Long MD [...] Morbid obesity with BMI of 45.0-49.9, adult ([facility]) 12/30/2017 Lipid screening 12/30/2017 QT prolongation 12/30/2017 [...] on file 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:55 AM [employer] Gender Identity Not on file Sexual Orientation Not on file Last Filed Vital Signs Vital Sign Reading Time Taken Comments Blood Pressure 134/90 08/17/2024 2:34 PM [employer] Pulse 103 08/17/2024 2:34 PM [employer] Temperature - - Respiratory Rate - - Oxygen Saturation 97% 08/17/2024 2:34 PM [employer] Inhaled Oxygen Concentration - - Weight 124.3 kg (274 lb) 08/17/2024 2:34 PM [employer] Height 162.6 cm (5' 4) 08/17/2024 2:34 PM [employer] Body Mass Index 47.03 08/17/2024 2:34 PM [employer] Plan of Treatment Not on file Insurance [facility] [employer] [employer] Care Teams Windows Server Engineer Relationship Specialty Start Date End Date Deedee Long MD PCP - General Family Medicine 10/07/22
--- OUTSIDE RECORDS SUMMARY | 2025-03-11 17:33 | XMS_ITS | Continuity of Care Document ---
Author Organization [employer] Address [address] [facility] [address] [place] [address] Phone Care Team Providers Care Charter Boat Captain Name Role Phone Nathalia Arndt PTA Unavailable [...] Neuromuscular Re-Ed Manual Therapy Durable medical equipment ne Therapeutic Activities Neuromuscular Re-Ed Manual Therapy Therapeutic [...] Diagnoses Date Provider Providers Copied on Encounter [facility] [address], [id number], tel:[phone] [place] No Information Hair Sloan. . Referring Provider: Thomas Patel Jr [address], [place], [address]. tel:[phone] [place] [address], [id number], tel:[phone] [place] No Information Frank Marie. . Referring Provider: Thomas Patel Jr [address], [place], [address]. tel:[phone] [facility] [address], [id number], tel:[phone] [place] No Information Ponchos Nathalia. . Referring Provider: Thomas Patel Jr [address], [place], [address]. tel:[phone] [facility] [address], [id number], tel:[phone] [place] No Information Komis Nathalia. . Referring Provider: Thomas Patel Jr, [address], [place], [address]. tel:[phone] [facility] [address], [place], [place], [id number], tel:[phone] [place] No Information [place] Cynthia. . Referring Provider: Thomas Patel Jr, [address], [place], [address]. tel:[phone] [facility] [address], [place], [place], [id number], tel:[phone] [place] No Information [place] Cynthia. . Referring Provider: Thomas Patel Jr [address], [place], [address]. tel:[phone] [place], [place] [id number] [address], [place], [place], [id number], tel:[phone] [place] No Information Komis Nathalia. . Referring Provider: Thomas Patel Jr, [address], [place], [address]. tel:[phone] [facility] [address], [place], [place], [id number], tel:[phone] [place] No Information [place] Khoi. . Referring Provider: Thomas Patel Jr [address], [place], [address]. tel:[phone] [facility] [address], [place], [place], [id number], tel:[phone] [place] No Information Komis Nathalia. . Referring Provider: Thomas Patel Jr [address], [place], [address]. tel:[phone] [facility], [place], [place], [id number], tel:[phone] [place] No Information Frank Cynthia. . Referring Provider: Thomas Patel Jr, [address], [place], [address]. tel:[phone] [place], [place] [phone] [address], [place], [place], [id number], tel:[phone] [place] No Information [place] Cynthia. . Referring Provider: Thomas Patel Jr, [address], [place], [address]. tel:[phone] [place], [place] [phone] [address], [place], [place], [id number], tel:[phone] [place] No Information Frank Cynthia. . Referring Provider: Thomas Patel Jr, [address], [place], [address]. tel:[phone] [place], [place] [phone] [address], [place], [place], [id number], tel:[phone] [place] No Information Komis Nathalia. . Referring Provider: Thomas Patel Jr, [address], [place], [address]. tel:[phone] [place], [place] [phone] [address], [place], [place], [id number], [place] tel:[phone] [place] No Information Komis Nathalia. . Referring Provider: Thomas Patel Jr, [address], [place], [address]. tel:[phone] [facility], [place], [place], [id number], tel:[phone] [place] No Information [place] Cynthia. . Referring Provider: Thomas Patel Jr, [address], [place], [address]. tel:[phone] [facility] [address] [facility], [place], [place], [id number], tel:[phone] [place] No Information Komis Nathalia. . Referring Provider: Thomas Patel Jr, [address], [place], [address]. tel:[phone] [facility] [address], [place], [id number], [place] tel:[phone] [place] No Information Komis Nathalia. . Referring Provider: Thomas Patel Jr, [address], [place], [address]. tel:[phone] [place] [address] [address] [facility], [place], [place], [id number], tel:[phone] [place] No Information Frank Cynthia. . Referring Provider: Thomas Patel Jr, [address], [place], [address]. tel:[phone] [place] [address] [facility] [facility], [place], [place], [id number], tel:[phone] [place] No Information Frank Cynthia. . Referring Provider: Thomas Patel Jr, [address], [place], [address]. tel:[phone] [facility] [address] [facility], [place], [id number], tel:[phone] [place] No Information Frank Cynthia. . Referring Provider: Thomas Patel Jr, [address], [place], [address]. tel:[phone] [place], [place] [address] [address], [place], [place], [id number], tel:[phone] [place] No Information Frank Cynthia. . Referring Provider: Thomas Patel Jr, [address], [place], [address]. tel:[phone] [place] [address] [address], [place], [place], [id number], tel:[phone] [place] No Information Frank Cynthia. . Referring Provider: Thomas Patel Jr, [address], [place], [address]. tel:[phone] [place] [address] [address] [facility], [place], [id number], tel:[phone] [place] No Information Komis Nathalia. . Referring Provider: Thomas Patel Jr, [address], [place], [address]. tel:[phone] [place] [address] [address] [facility], [place], [id number], tel:[phone] [place] No Information Frank Cynthia. . Referring Provider: Thomas Patel Jr, [address], [place], [address]. tel:[phone] [place] [address] [address], [place], [place], [id number], tel:[phone] [place] No Information Komis Nathalia. . Referring Provider: Thomas Patel Jr, [address], [place], [address]. tel:[phone] [place] [address] [address], [place], [place], [id number], tel:[phone] [place] No Information [place] Cynthia. . Referring Provider: Thomas Patel Jr, [address], [place], [address]. tel:[phone] [facility] [address] [facility], [place], [place], [id number], tel:[phone] [place] No Information Komis Nathalia. . Referring Provider: Thomas Patel Jr, [address], [place], [address]. tel:[phone] [facility] [address], [place], [address], [place] tel:[phone] [place] No Information Komis Nathalia. . Referring Provider: Thomas Patel Jr [address], [place], [address]. tel:[phone] [place] [address] [address] [facility], [place], [id number], tel:[phone] [place] No Information Frank Cynthia. . Referring Provider: Thomas Patel Jr [address], [place], [address]. tel:[phone] [place] [address] [address] [facility], [place], [place], [address], tel:[phone] [place] No Information [place] Cynthia. . Referring Provider: Thomas Patel Jr, [address], [place], [address]. tel:[phone] [facility] [address] [facility], [place], [id number], [place] tel:[phone] [place] No Information Komis Nathalia. . Referring Provider: Thomas Patel Jr [address], [place], [address]. tel:[phone] [facility] [address], [id number], tel:[phone] [place] No Information Frank Marie. . Referring Provider: Thomas Patel Jr [address], [place], [address]. tel:[phone] [facility] [address], [id number], tel:[phone] [place] No Information Komis Nathalia. . Referring Provider: Thomas Patel Jr [address], [place], [address]. tel:[phone] [facility] [address], [id number], tel:[phone] [place] No Information Komis Nathalia. . Referring Provider: Thomas Patel Jr [address], [place], [address]. tel:[phone], [id number], tel:[phone] [place] No Information Frank Marie. . Referring Provider: Thomas Patel Jr [address], [place], [address]. tel:[phone] Family History Family Member Type Diagnosis Age At Onset No Information Payers Payer name Insurance type Covered constitution party ID Nicolcm zariaanalilia(s) [facility] CI [id number] Social History Type Description Quantity Date Captured [...]
--- OUTSIDE RECORDS SUMMARY | 2025-03-11 17:33 | XMS_ITS | Continuity of Care Document ---
Author Organization [employer] Address [address] [facility] [address] [place] [address] Phone Care Team Providers Care Radio Repair Teacher Name Role Phone Nadir Loo PT Unavailable [...] Diagnoses Date Provider Providers Copied on Encounter [facility], [address] [place], [place] [address] [address] [place] [address], [id number], tel:[phone] [place] No Information Eze Schmitz. . [facility] [employer], [id number], tel:[phone] [place] No Information Eze Ren . Referring Provider: Armando Blanchard, [address] [place] [address], [place], [address]. tel:[phone] [facility], [address] [place] [address], [id number], tel:[phone] [place] No Information Eze Nadir. . Referring Provider: Armando Blanchard, [address] [place] [address], [address]. tel:[phone] [facility], [facility] [address], [id number], tel:[phone] [place] No Information Nov-0 7 Eze Nadir. . Referring Provider: Armando Blanchard, [address] [place] [address], [address]. tel:[phone] [facility], [address] [place] [address], [id number], tel:[phone] [place] No Information Eze Nadir. . Referring Provider: Armando Blanchard, [address] [place] [address], [address]. tel:[phone] [employer], [address], [id number], tel:[phone] [place] Other bursitis of hip, right hipLumbago with sciatica, right sideAcute right-sided low back pain with right-sided sciaticaWeakness of backHip stiffness, right Fe- Eze Nadir. . Referring Provider: Armando Blanchard, [address] [place] [address], [address]. tel:[phone] Family History Family Member Type Diagnosis Age At Onset No Information Payers Payer name Insurance type Covered libertarian ID Jeffery zeng(s) [facility] [id number] Social History Type Description Quantity Date Captured [...]
--- OUTSIDE RECORDS SUMMARY | 2025-03-11 17:33 | XMS_ITS | Clinical Summary ---
Author Organization [facility] [address] Address [address] [place] [address] Care Team Providers Care Automatic Dispenser Mechanic Name Role Phone Deedee Long MD Primary [...] Morbid obesity with BMI of 45.0-49.9, adult ([facility]) 12/30/2017 Lipid screening 12/30/2017 QT prolongation 12/30/2017 [...] on file 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:55 AM DIGITAL MEDIA INTERN Gender Identity Not on file Sexual Orientation Not on file Obstetrics History Last Filed Vital Signs Vital Sign Reading Time Taken Comments Blood Pressure 134/90 08/17/2024 2:34 PM DIGITAL MED[employer] INTERN Pulse 103 08/17/2024 2:34 PM [employer] INTERN Temperature - - Respiratory Rate - - Oxygen Saturation 97% 08/17/2024 2:34 PM DIGITAL MEDIA INTERN Inhaled Oxygen Concentration - - Weight 124.3 kg (274 lb) 08/17/2024 2:34 PM DIGITAL MEDIA INTERN Height 162.6 cm (5' 4) 08/17/2024 2:34 PM DIGITAL MEDIA INTERN Body Mass Index 47.03 08/17/2024 2:34 PM DIGITAL MEDIA INTERN Plan of Treatment Health Maintenance Due Date [...] patient's age to complete this topic Insurance [facility] CHOICE PLUS [facility] HMO/PPO Address: [address] [place] [address] [facility] CHOICE PLUS [facility] HMO/PPO Address: [address] [address] [place] [address] Care Teams Automatic Dispenser Mechanic Relationship Specialty Start Date End Date Deedee Long MD PCP - General Family Medicine 10/07/22
--- OUTSIDE RECORDS SUMMARY | 2025-03-11 17:33 | XMS_ITS | Clinical Summary ---
Author Organization [facility] Address [address] [place] [address] Phone Care Team Providers Care Boiler Maker Name Role Phone Dionte Vega MD [...] OXALATE ORAL Take by mouth. Active OM [id number] ORAL Take by mouth. Active evening primrose [...] 08/09/2019 Immunizations Immunization Administration Dates Next Due ([email or web address])(12 YR UP) COVID-19 VACCINE - EMERGENCY USE AUTHORIZATION, MRNA, [id number]) 30 MCG/0.3 ML IM SUSP 12/29/2020,11/30/2020 Family [...] on file Legal Sex Female 5:38 AM DIRECTOR CRITICAL CARE Gender Identity Not on file Sexual Orientation [...] this topic Medical Devices Implanted Type Area Weighmaster Lead Device Identifier Shelf Expiration Date Model / Serial / Lot Hemostatic Surgicel 2x3in 1953 - [id number] Implanted:Qty : 1 on 02/09/2021 by Erika Martinez MD at [facility] Hemostatic Right: Breast [employer] [id number] 10/29/20241952 / / [id number] Breast Biopsy Clips-Bilater al Procedures Procedure Name [...] Most Recently Relevant to Health Maintenance Insurance [facility] [id number] Care Teams Boiler Maker Relationship Specialty Start Date End Date Dionte Vega MD [address] [place] [id number] PCP - General Family Practice 05/25/10
--- OUTSIDE RECORDS SUMMARY | 2025-03-11 17:33 | XMS_ITS | Encounter Summary ---
Author Organization [facility] Address 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 Gender Identity Not on file Sexual [...] Narrative 06/20/2008 2:56 PM CDT [place] [id number] [place], [place] [address] Admit Date: 06/20/2008 [facility] Sex: F Admit Prov: ER, AUTHORIZED P Date: 1985 Primary Care Prov: CMRN: [id number] Room: ER-A N: [id number] IMAGING SERVICES Ordering Prov: N/A Accession Number: [id number] Interpretation CT of the abdomen and pelvis [...] Tennille Ervin MD - 06/20/2008 [place] [address] [place], [place] [address] Admit Date: 06/20/2008 SUM[facility] ABRAMS Sex: F Admit Prov: ER, AUTHORIZED P Date: 1985 Primary Care Prov: CMRN: [id number] Room: ER-A N: [id number] IMAGING SERVICES Ordering Prov: N/A Interpretation CT [...] SPECIFIC GRAVITY UA 1.015 1.001 - 1.030 [facility] GLUCOSE UA Negative Negative [facility] COLOR UA Pale [facility] NITRITE UA Negative Negative [facility] BILIRUBIN UA Negative Negative [facility] PH UA 6.0 5.0 - 8.0 [facility] KETONES UA Negative Negative [facility] CLARITY UA Clear [facility] PROTEIN UA Negative Negative [facility] BLOOD UA 1+(A) Negative [facility] LEUKOCYTE ESTERASE UA Trace(A) Negative [facility] UROBILINOGEN UA Normal <=1 mg/dL [facility] Urine specimen (specimen) 06/20/2008 12:59 PM CDT 06/20/2008 12:59 PM CDT us Authorized P Er POINT OF CARE TESTING Final Resu lt Performing Organization Address City/[facility]/ZIP Co de Phone Number INTERFACE SYSTEM Refer to clinic/hospital department [facility] CLIA# [id number] [address] [place] [address] * POC , URINE (06/20/2008 12:59 PM CDT) , URINE POC Negative Negative [facility] SPECIFIC GRAVITY UA 1.015 1.001 - 1.035 [facility] Urine specimen (specimen) 06/20/2008 12:59 PM CDT 06/20/2008 12:59 PM CDT us Authorized P Er POINT OF CARE TESTING Final Resu lt Performing Organization Address City/[facility] de Phone Number INTERFACE SYSTEM Refer to clinic/hospital department [facility] CLIA# [id number] [address] [place] [address] documented in this encounter Visit Diagnoses Not on filedocumented in this encounter Care Teams Steam Blocker Relationship Specialty Start Date End Date Dionte Vega MD [address] [place] [address] PCP - General Family Practice 05/25/10 documented as of this encounter
== END 2025-03-11 17:53 | disposition home or self-care (01) ==
LOC: ANHED 17:31
PROVIDERS: Emergency Provider Physician Assistant; PCP Family Medicine
DX: N30.01 Acute cystitis with hematuria (principal); S86.912A Strain of unspecified muscle(s) and tendon(s) at lower leg level, left leg, initial encounter; I10 Essential (primary) hypertension; E28.2 Polycystic ovarian syndrome; E66.01 Morbid (severe) obesity due to excess calories; Z68.42 Body mass index [BMI] 45.0-49.9, adult; M79.7 Fibromyalgia; R73.03 Prediabetes; K58.9 Irritable bowel syndrome, unspecified; K21.9 Gastro-esophageal reflux disease without esophagitis; F41.9 Anxiety disorder, unspecified; F32.A Depression, unspecified; Z86.16 Personal history of COVID-19; Z87.891 Personal history of nicotine dependence; Z90.710 Acquired absence of both cervix and uterus; Z90.722 Acquired absence of ovaries, bilateral; Z90.79 Acquired absence of other genital organ(s); Z90.49 Acquired absence of other specified parts of digestive tract; Z79.899 Other long term (current) drug therapy; Z79.84 Long term (current) use of oral hypoglycemic drugs; X58.XXXA Exposure to other specified factors, initial encounter
CPT/HCPCS: 36415; 80053; 81001; 85025; 85610; 85730; 87086; 93971; 96372; 99284; A9270; J1885

== ENCOUNTER 2025-05-08 14:18 | Emergency (ER) | payer OTHER, SELFPAY ==
--- NOTE | ~2025-05-08 | XR_ITS ---
EXAM: XR foot LT min 3V, XR ankle LT min 3V DATE: 05/08/2025 14:42 HISTORY: injury . COMPARISON: None available. FINDINGS: Normal mineralization. No fracture or dislocation. No lytic or blastic lesion. Mild scatte red degenerative change. Achilles and plantar enthesopathy. No erosion or periosteal change. Soft tis sues within normal limits. IMPRESSION: No acute osseous finding in the left ankle or foot. Reviewed, dictated and finalized at location K. IMPRESSION: No acute osseous finding in the left ankle or foot.
[2025-05-08 14:25] VITALS: BP 142/83; PULSE 103; RESP 20; TEMP 36.4; O2SAT 96
--- NOTE | 2025-05-08 15:47 | ED_ITS ---
HPI - Extremity Injury (Lower) General Chief Complaint: Extremity Injury, Lower Stated Complaint: left foot injury Time Seen by Provider: 05/08/25 15:20 Source: patient and RN notes reviewed Mode of arrival: ambulatory Limitations: no limitations History of Present Illness HPI Narrative: 40-year-old female Presents Express Care complaining of injury to left ankle. Patient reports yesterday she rolled her ankle at home and she was able to catch herself before falling. Patient reports pain and swelling to her left ankle and foot. Patient says she is having a hard time bearing weight. After she rolled her ankle she left for a float trip and returned today with persistent pain. Patient denies any numbness, tingling or any other injuries. Patient denies significant past medical history. Related Data Home Medications ?Medication ?Instructions ?Recorded ?Confirmed ?Last Taken ?Type lisinopril 10 mg tablet 10 mg PO DAILY 10/11/22 04/21/25 12/23/23 History multivitamin 1 tablet PO DAILY 12/22/23 04/21/25 12/20/23 History omega-3 fatty acids 1,000 mg 1,000 mg PO DAILY 04/22/24 04/21/25 Unknown History capsule cyclobenzaprine 10 mg tablet mg PO 03/03/25 04/21/25 Unknown History metoprolol succinate 100 mg mg PO 03/03/25 04/21/25 Unknown History tablet,extended release 24 hr Allergies Allergy/AdvReac Type Severity Reaction Status Date / Time sulfamethoxazole (From Allergy Severe Rash Verified 05/08/25 14:42 Bactrim) trimethoprim (From Bactrim) Allergy Severe Rash Verified 05/08/25 14:42 duloxetine Allergy Intermediate Itching Verified 05/08/25 14:42 amlodipine Allergy Unknown peripheral Verified 05/08/25 14:42 edema promethazine Allergy Unknown Skin Verified 05/08/25 14:42 Reaction nirmatrelvir (From Paxlovid) AdvReac Severe cardiac Verified 05/08/25 14:42 ritonavir (From Paxlovid) AdvReac Severe cardiac Verified 05/08/25 14:42 latex AdvReac Itching Verified 05/08/25 14:42 neomycin, polymyxin and AdvReac Intermediate Other Uncoded 05/08/25 14:42 hydrocortisone otic drops Review of Systems Review of Systems: CONSTITUTIONAL: Denies fever, chills, or sweats. EYES: Denies visual changes, redness, or discharge. ENT: Denies rhinorrhea, congestion, sore throat, or otalgia. CARDIOVASCULAR: Denies chest pain, palpitations, or edema. RESPIRATORY: Denies cough or dyspnea. GASTROINTESTINAL: Denies abdominal pain, nausea, vomiting, or diarrhea. GENITOURINARY: Denies dysuria or hematuria. SKIN: Denies rash, wound, or itching. MUSCULOSKELETAL: Denies back pain, joint pain, or myalgia. Positive for left ankle injury and swelling NEUROLOGIC: Denies headache, numbness, or weakness. PSYCHIATRIC: Denies anxiety or depression. All other systems reviewed are negative, except as documented in HPI. [facility] Past Medical History Medical History Endometriosis seen on rachel/bso path 2023 Otitis externa of left ear Otorrhea, left ear Fungal otitis externa Chest wall pain Otorrhea, left ear Nasal congestion Prediabetes 3.9.22 hgba1c 5.9 COVID Bruxism Otalgia of both ears Ear itching IBS (irritable bowel syndrome) Otitis externa of right ear Esophageal reflux Benign essential hypertension Acute gastritis Fibromyalgia PVC (premature ventricular contraction) Panic disorder without agoraphobia Surgical History Surgical History S/P [facility] 3.27.24 History of placement of ear tubes H/O wisdom tooth extraction H/O dilation and curettage H/O: section Hx of cholecystectomy Family History Family History Other Cerebrovascular accident Diabetes mellitus Family history of malignant neoplasm Hypertension Social History Social History Smoking packs per day: 1 Smoking cigarettes per day: 20.0 Years smoked: 5 Smoking pack-years: 5.00 Smoking status: Former smoker Alcohol intake: never Alcohol use details: occasionally Substance use: never Substance use type: marijuana Other substance usage details: EDIBLES Do You Feel Safe in your Home?: Yes Lack of Transportation: No Lack of Food: Never True Current Housing: I Have Housing Concerned About Future Housing: No Difficulty Paying Gas/Electric Bills: No Difficulty Paying for Meds: No Currently Unemployed: No Education: Bachelor's Degree Difficulty w/ Childcare or Family Care: No Living arrangements: with family Spiritual care concerns: No Comments At the time of my signature, I reviewed and agree with the nursing past medical, surgical, social, and family history. There is no relevant family history pertinent to the patient complaint. Exam Narrative: GENERAL: This is a well-nourished, well-developed adult, in no apparent distress. They are non ill-appearing, nontoxic appearing. Patient is morbidly obese. HEAD: normocephalic, atraumatic. EYES: Sclera clear/white. Vision is grossly intact. Conjunctiva normal. Ex traocular movement intact. EARS: External ears normal Hearing grossly intact. NOSE: External nose normal THROAT: Mucous membranes moist NECK: Neck supple CARDIOVASCULAR: Regular rate and rhythm RESPIRATORY: Respiratory rate normal, respiratory effort nonlabored, no respiratory distress NEURO: awake, alert, and oriented to person, place and time. There were no obvious focal neurologic abnormalities. EXTREMITIES: Left ankle: No obvious deformity, bruising, redness. Diffuse swelling the patient's ankle and foot. There is lateral tenderness to the ankle. Tenderness to palpation throughout the dorsal and plantar surface foot. Patient able to dorsiflex and plantar flex her ankle with mild discomfort.. Capillary refill less than 3 seconds. Left pedal Pulse 2 +palpable. Normal sensation. Neurovascular status intact distal injury. Patient wiggle her toes. Negative Samano's test. BACK: Nontender without deformity. Course Course Emergency Course: Portions of this record may have been created with voice recognition software Level of Care: Express Care Visit Vital Signs Vital signs: Vital Signs Temperature 97.6 F 05/08/25 14:25 Pulse Rate 103 H 05/08/25 14:25 Respiratory Rate 20 05/08/25 14:25 Blood Pressure 142/83 H 05/08/25 14:25 Pulse Oximetry 96 05/08/25 14:25 Oxygen Delivery Room Air 05/08/25 14:25 Temperature 97.6 F 05/08/25 14:25 Pulse Rate 103 H 05/08/25 14:25 Respiratory Rate 20 05/08/25 14:25 Blood Pressure 142/83 H 05/08/25 14:25 Pulse Oximetry 96 05/08/25 14:25 Oxygen Delivery Room Air 05/08/25 14:25 Reviewed MDM - Extremity Injury (Lower) MDM Narrative Medical decision making narrative: Negative tonsils status. X-ray of left ankle foot showed no evidence of acute fracture or acute findings. Patient given Jam wrap for compression. Patient says she is having a hard time bearing weight. Patient given crutches until she can bear weight. Discussed physical exam findings. Advised supportive measures and signs/symptoms to go to the ER. Pt is appropriate for outpt treatment and f/u. Differential Diagnosis Differential diagnosis: Likely ankle sprain and strain, ankle fracture and other (Foot sprain, foot fracture) Imaging Data Radiologist's impression: ITS Impressions Ankle X-Ray 05/08/25 15:25 IMPRESSION: No acute osseous finding in the left ankle or foot. Foot X-Ray 05/08/25 15:25 IMPRESSION: No acute osseous finding in the left ankle or foot. Critical Care Time Critical Care Time Critical Care Time: No Discharge Plan Discharge Clinical Impression: Injury of ankle, left Patient Disposition: Home Condition: Stable Instructions: Antibiotic Form, Ankle Sprain (ED) Additional Instructions: The x-ray of your left foot and ankle were negative for any fractures or acute findings. Rest and elevate the leg; bear weight as tolerated. You may use crutches until you can bear weight. Apply ice 15-20 minute intervals several times a day Keep it wrapped with JAM or use a soft ankle splint Motrin 600mg -800mg every 8 hours, alternate with Tylenol 1000mg every 6 to 8 hours as needed Follow up with your primary care provider as needed in 1-2 weeks specially if pain persists. Patient Language: Icelandic Prescriptions: No Action lisinopril 10 mg tablet 10 mg PO DAILY Rx Instructions: HAS NOT BEEN TAKING PAST COUPLE WEEK BP LOW albuterol sulfate 90 mcg/actuation HFA aerosol inhaler 2 puff inhalation Q4-6H PRN (Reason: shortness of breath or wheezing) 30 Days Qty: 8.5 0RF clobetasol 0.05 % solution See Rx Instructions .ROUTE .COMPLEX Qty: 50 0RF Dose Instruction: APPLY TOPICALLY TO THE AFFECTED AREA DAILY Rx Instructions: APPLY TOPICALLY TO THE AFFECTED AREA DAILY metoprolol succinate 100 mg tablet extended release 24 hr PO cyclobenzaprine 10 mg tablet PO buspirone 15 mg tablet 15 mg PO BID Qty: 90 1RF gabapentin 300 mg capsule See Rx Instructions PO BID Qty: 150 3RF Rx Instructions: Take 900 mg (3 capsules) in the am and 600 mg (2 capsules) in the evening. multivitamin Tablet 1 tablet PO DAILY metoprolol succinate 50 mg tablet extended release 24 hr 150 mg PO DAILY Qty: 90 5RF omega-3 fatty acids 1,000 mg capsule 1,000 mg PO DAILY hyoscyamine sulfate 0.125 mg tablet See Rx Instructions .ROUTE .COMPLEX Qty: 30 5RF Dose Instruction: TAKE 1 TABLET BY MOUTH FOUR TIMES DAILY Rx Instructions: TAKE 1 TABLET BY MOUTH FOUR TIMES DAILY metformin 500 mg tablet extended release 24 hr 500 mg PO BID Qty: 180 1RF duloxetine 60 mg capsule,delayed release(DR/EC) 60 mg PO DAILY Qty: 90 1RF pantoprazole 40 mg tablet,delayed release (DR/EC) See Rx Instructions .ROUTE .COMPLEX Qty: 180 1RF Dose Instruction: TAKE 1 TABLET BY MOUTH TWICE DAILY Rx Instructions: TAKE 1 TABLET BY MOUTH TWICE DAILY alprazolam 0.25 mg tablet 0.25 mg PO BID PRN (Reason: anxiety) Qty: 60 5RF sumatriptan succinate 25 mg tablet See Rx Instructions PO .COMPLEX Qty: 14 5RF Rx Instructions: take 1 tab at onset of headache; if no relief may repeat 1 tab after at least 2 hrs; max = 4 tabs/24 hr PO triamterene-hydrochlorothiazid 37.5-25 mg tablet 1 tablet PO DAILY Qty: 90 1RF Follow-up/Referrals: Deedee Long MD [Primary Care Provider] - Benja Flor MD [Physician] - Time of Disposition: 15:44
== END 2025-05-08 15:55 | disposition home or self-care (01) ==
PROVIDERS: PCP Family Medicine
DX: S99.912A Unspecified injury of left ankle, initial encounter (principal); X50.9XXA Other and unspecified overexertion or strenuous movements or postures, initial encounter; N80.9 Endometriosis, unspecified; R73.03 Prediabetes; K21.9 Gastro-esophageal reflux disease without esophagitis; M79.7 Fibromyalgia; Z87.891 Personal history of nicotine dependence; Z86.16 Personal history of COVID-19
CPT/HCPCS: 73610; 73630; 99213; G0463

== ENCOUNTER 2025-05-12 10:48 | Outpatient (NON) | payer OTHER, SELFPAY ==
--- OUTSIDE RECORDS SUMMARY | 2025-05-12 11:03 | XMS_ITS | Encounter Summary ---
Author Organization [facility] Address 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 Gender Identity Not on file Sexual [...] PM CDT Narrative 06/20/2008 2:56 PM CDT [place] [address] [place], [place] [address] Admit Date: 06/20/2008 SUMMER ABRAMS Sex: F Admit Prov: ER, AUTHORIZED P Date: 1985 Primary Care Prov: CMRN: [id number] Room: ER-A N: [id number] IMAGING SERVICES Ordering Prov: N/A Accession Number: [id number] Interpretation CT of the abdomen and pelvis [...] Procedure Note Tennille Ervin MD - 06/20/2008 [place] [address] [place], [place] [address] Admit Date: 06/20/2008 SUMMER ABRAMS Sex: F Admit Prov: ER, AUTHORIZED P Date: 1985 Primary Care Prov: CMRN: [id number] Room: -A N: [id number] IMAGING SERVICES Ordering Prov: N/A Interpretation CT [...] GRAVITY UA 1.015 1.001 - 1.030 [facility] GLUCOSE UA Negative Negative [facility] COLOR UA Pale [facility] NITRITE UA Negative Negative [facility] BILIRUBIN UA Negative Negative [facility] PH UA 6.0 5.0 - 8.0 [facility] KETONES UA Negative Negative [facility] CLARITY UA Clear [facility] PROTEIN UA Negative Negative [facility] BLOOD UA 1+(A) Negative [facility] LEUKOCYTE ESTERASE UA Trace(A) Negative [facility] UROBILINOGEN UA Normal <=1 mg/dL [facility] Urine specimen (specimen) 06/20/2008 12:59 PM CDT 06/20/2008 12:59 PM CDT us Authorized P Er POINT OF CARE TESTING Final Resu lt Performing Organization Address City/[facility] Co de Phone Number INTERFACE SYSTEM Refer to clinic/hospital department [facility] CLIA# [id number] [address] [place] [address] * POC , URINE (06/20/2008 12:59 PM CDT) , URINE POC Negative Negative [facility] SPECIFIC GRAVITY UA 1.015 1.001 - 1.035 [facility] Urine specimen (specimen) 06/20/2008 12:59 PM CDT 06/20/2008 12:59 PM CDT us Authorized P Er POINT OF CARE TESTING Final Resu lt Performing Organization Address [facility] de Phone Number INTERFACE SYSTEM Refer to clinic/hospital department [facility] CLIA# [id number] [address] [place] [address] documented in this encounter Visit Diagnoses Not on filedocumented in this encounter Care Teams Metal Hanging Helper Relationship Specialty Start Date End Date Dionte Vega MD [address] [place] [address] PCP - General Family Practice 05/25/10 documented as of this encounter
--- OUTSIDE RECORDS SUMMARY | 2025-05-12 11:03 | XMS_ITS ---
Author Organization [facility] Address [address] [place] [address] Care Team Providers Care Bisque Grader Name Role Phone Mercedes GUZMAN, Amol Primary Care Provider Eliza Hope [phone] Social History Sex Assigned At : Social History Observation Description Sex Assigned At Female Encounters Encounter Location Date Provider Diagnosis [facility] Transit [facility] [place] [address] [place] [address] 07/23/2024 Vikasa Iwona Plan Of Treatment No Information Progress Notes * SUMMER PHILLIPS LDOB:1984 (40 yo F)Acc No.[id number]:07/23/2024 Patient: SUMMER MCGEE Provider: Santo JORDAN MD :1985 A ge:39 Y S ex:Female Date:07/23/2024 Address[address] [facility] Pcp:Amol Long MD Subjective: * Chief Complaints: * * Medical History: Objective: * Vitals: Assessment: Plan: * Treatment: * Billing Information: * Visit Code: * Procedure Codes: * Electronic signature of Vikas Jordan MD on 05/12/2025 at 11:03 AM CDT Sign off status: Pending * Provider: Santo JORDAN MD Date: 1 Generated for Printi ng/Faxing/eTransmitting on: 05/12/2025 11:03 AM CDT
--- OUTSIDE RECORDS SUMMARY | 2025-05-12 11:04 | XMS_ITS | Clinical Summary ---
Author Organization [facility] Address [address] [place] [phone] Phone Care Team Providers Care Process Safety Engineer Name Role Phone Dionte Vega MD Primary Care Provider [phone] Allergies Active Allergy Reactions Criticality Noted Date [...] OXALATE ORAL Take by mouth. Active OM [id number] ORAL Take by mouth. 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 Gender Identity Not on file Sexual Orientation [...] Done Comments Pre-Diabetes and Diabetes Screening 1984 HPV VACCINES (1 - 3-dose series) 1999 DTAP/TDAP/TD VACCINES (1 - Tdap) 2003 HEPATITIS B VACCINES (1 of 3 - 19+ 3-dose series) 2003 HPV/Cotest (21-29) 2005 CERVICAL CANCER SCREENING 2014 HPV/Cotest (30-65) 2014 PAP SMEAR 2014 BREAST CANCER SCREENING 2024 11/08/19, 04/15/2019, 04/15/2019 COVID-19 Vaccine (2023-2 5 season) 2024 12/29/2020, 11/30/2020 INFLUENZA VACCINE (#1) 2025 Medical Devices Implanted Type Area Museum Librarian Device Identifier Shelf Expiration Date Model / Serial / Lot Hemostatic Surgicel 2x3in 1953 - [id number] Implanted:Qty : 1 on 02/09/2021 by Erika Martinez MD at [facility] Hemostatic Right: Breast [employer] [id number] 10/29/20241952 / / [id number] Breast Biopsy Clips-Bilater al Procedures Procedure Name [...] Maintenance Insurance [facility] [employer] PPO [id number] Care Teams Process Safety Engineer Relationship Specialty Start Date End Date Dionte Vega MD [address] [place] [id number] PCP - General Family Practice 05/25/10
--- OUTSIDE RECORDS SUMMARY | 2025-05-12 11:04 | XMS_ITS | Clinical Summary ---
Author Organization [facility] [address] Address [address] [place] [address] Care Team Providers Care Motor Power Connector Name Role Phone Deedee Long MD Primary Care Provider + Allergies Active Allergy Reactions Criticality Noted Date Comments Fluconazole Anxiety Low 01/16/2021 Latex Itching Low 12/24/2023 Nirmatrelvir-Ritonavir Chest tightness,Dizziness,He adache Medium 05/20/2022 Promethazine Other (See comments),Anxiety Low 05/25/2010 Panic attack Sulfamethoxazole-Trimetho prim Hives,Itching Medium 08/17/2024 Medications cholecalciferol (VITAMIN D-3) 2,000 unit capsule Take [...] (10 mg total) by mouth daily Active triamterene-hydro CHLOROthiazide 37.5-25 mg per tablet Take 1 tablet/capsul e by mouth every morning 10/28/[address] (PROTONIX) 40 mg EC tablet 09/18/20 21 Active busPIRone (BUSPAR) 15 mg tablet TAKE 1 AND 1/2 TABLETS BY MOUTH EVERY MORNING AND 2 TABLETS BY MOUTH EVERY EVENING 02/15/20 24 Active clobetasoL (TEMOVATE) 0.05 % external solution APPLY TOPICALLY TO THE AFFECTED AREA DAILY 01/28/20 24 Active estradioL (ESTRACE) 1 mg tablet 02/29/20 24 Active metFORMIN XR (GLUCOPHAGE XR) 500 mg 24 hr tablet Take 2 tablets (1,000 mg total) by mouth 2 (two) times a day 01/13/20 24 Active methocarbamoL (ROBAXIN) 750 mg tablet TAKE 1 TABLET BY MOUTH THREE TIMES DAILY NEEDED FOR MUSCLE PAIN 01/09/20 24 Active mirtazapine (REMERON) 15 mg tablet Take 1 tablet (15 mg total) by mouth nightly at bedtime 02/07/20 24 Active ondansetron ODT (ZOFRAN-ODT) 4 mg disintegrating tablet DISSOLVE 1 TABLET ON THE TONGUE EVERY 8 HOURS 12/02/19 24 Active oxyCODONE-acetami nophen (PERCOCET) 5-325 mg per tablet TAKE ONE TABLET BY MOUTH EVERY 8 TO 12 HOURS NEEDED FOR PAIN 02/24/20 24 Active traMADoL (ULTRAM) 50 mg tablet Take 1 tablet (50 mg total) by mouth every 6 (six) hours 12/08/19 24 Active metoprolol XL (TOPROL-XL) 100 mg 24 hr tabletIndications :Palpitations Take 1 tablet (100 mg total) by mouth daily Take with the 50 mg tablet 90 tablet 3 03/02/20 24 Active metoprolol XL (TOPROL-XL) 50 mg extended release tabletIndications :Palpitations Take 1 tablet (50 mg total) by mouth daily Take with the 100 mg tablet 90 tablet 3 03/02/20 24 Active gabapentin (NEURONTIN) 300 mg capsule Take 100 mg by mouth 3 (three) times a day 07/22/20 24 Active fluticasone propionate (Flonase Allergy Relief) 50 mcg/actuation nasal spray Administer 1 spray into each nostril daily 09/24/[address] (CYMBALTA) 60 mg capsule Take 1 capsule (60 mg total) by mouth daily Active lisinopriL (PRINIVIL,ZESTRIL ) 10 mg tablet TAKE 1 TABLET(10 MG) BY MOUTH DAILY 90 tablet 1 07/29/20 25 Active lisinopriL (PRINIVIL,ZESTRIL ) 10 mg tablet TAKE 1 TABLET(10 MG) BY MOUTH DAILY 90 tablet 1 09/28/20 24 2024 Discontinued Active Problems Problem Noted Date Diagnosed Date Class 3 severe obesity due t o excess calories with body mass index (BMI) of 45.0 to 49.9 in adult 03/18/2025 Chronic fatigue 10/07/2022 Neck pain on left side 09/24/2021 Other chest pain 07/23/2019 KENZIE on CPAP 03/04/2019 Pulmonary HTN 02/09/2018 Sinus tachycardia 12/30/2017 Palpitations 12/30/2017 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 HTN (hypertension), benign 12/30/2017 Morbid obesity with BMI of 45.0-49.9, adult ([facility]) 12/30/2017 Lipid screening 12/30/2017 QT prolongation 12/30/2017 Hypertension 2015 Encounters Date Type Department Care Team Description 03/18/2025 3:00 PM CDT Office Visit [facility] Cardiology at [address] [place] [address] Amol Martinez MD Frequent PVCs (Primary Dx); KENZIE on CPAP; Class 3 severe obesity due to excess calories with body mass index (BMI) of 45.0 to 49.9 in adult from Last 3 Months Surgical History Surgery Date Site/Laterality Comments CHOLECYSTECTOMY DILATION AND CURETTAGE OF UTERUS WISDOM TOOTH EXTRACTION UPPER GASTROINTESTINAL ENDOSCOPY BREAST SURGERY SECTION BREAST BIOPSY 01/05/2021 Right HYSTERECTOMY 12/24/23 Medical History Medical History Date Comments Hypertension Cardiac rhythm disturbance Overweight Sinusitis Allergic rhinitis Acid indigestion Anxiety Depression Bladder infection GERD (gastroesophageal reflux disease) Migraines Sleep apnea Neuromuscular disorder Infection Family History Medical History Relation Name Comments Arthritis Father Lj Peraza Depression Father Lj Preaza Diabetes Father Lj Peraza Drug abuse Father Lj Peraza Heart disease Father Lj Peraza Hypertension Father Lj Peraza Mental illness Father Lj Peraza Cancer Maternal Grandfather Yan Alexandracsmarcelo Clotting disorder Maternal Grandfather Yan Guan si Heart attack Maternal Grandfather Yan Alexandracsi Hypertension Maternal Grandfather Yan Morriscsi Anemia Maternal Grandmother Floresita Ti Diabetes Maternal Grandmother Floresita Luke Obesity Maternal Grandmother Floresita Luke Vision loss Maternal Grandmother Floresita Luke Arthritis Mother Dinora Peraza Hypertension Mother Dinora Peraza Obesity Mother Dinora Peraza Cancer Paternal Grandmother Hanna Magana Drug abuse Sister 3 Yanira Peraza Mental illness Sister 3 Yanira Peraza Relation Name Status Comments Father Lj Peraza Alive Maternal Grandfather Yan Luke Maternal Grandmother Floresita Luke Mother Dinora Peraza Alive Paternal Grandmother Hanna Hare Chino Sister 1 Alive Sister 2 Alive Sister 3 Yanira Peraza Social History Tobacco Use Types Packs/Day Years Used Date Smoking Tobacco: Former Cigarettes 0.5 5 0 09/29/2000 - 09/29/2005 Smokeless Tobacco: Never Tobacco Cessation:Counseling Given: Not Answered Alcohol Use Standard Drinks/Week Comments No 0 (1 standard drink = 0.6 oz pur e alcohol) Comments Unknown Sex and Gender Information Value Date Recorded Sex Assigned at Not on file 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:55 AM STUNT PERSON Gender Identity Not on file Sexual Orientation Not on file Obstetrics History Last Filed Vital Signs Vital Sign Reading Time Taken Comments Blood Pressure 122/88 03/18/2025 3:06 PM CDT Pulse 83 03/18/2025 3:06 PM CDT Temperature - - Respiratory Rate - - Oxygen Saturation 96% 03/18/2025 3:06 PM CDT Inhaled Oxygen Concentration - - Weight 126.1 kg (278 lb) 03/18/2025 3:06 PM CDT Height 162.6 cm (5' 4) 03/18/2025 3:06 PM CDT Body Mass Index 47.72 03/18/2025 3:06 PM CDT Plan of Treatment Health Maintenance Due Date Last Done Comments Breast Cancer Screening-Mammogram 1984 Depression Screening 1984 Hepatitis C Screening 1984 Varicella Vaccines (1 of 2 - 13+ 2-dose series) 1997 Hepatitis B Screening 2002 Regular Well Visit/Exam 18-64 2002 HPV Vaccines (1 - 3-dose SCD M series) 2011 Influenza Vaccine (#1) 2025 07/03/2015 DTaP/Tdap/Td Vaccine (3 - Td or Tdap) 01/16/2028 01/15/2018, 07/14/2015 Pneumococcal vaccine <65 Aged Out No longer eligible based on patient's age to complete this topic Procedures Procedure Name Priority Date/Time Associated Diagnosis Comments POCT LIPID PANEL Routine 03/18/2025 2:58 PM CDT Frequent PVCs from Last 3 Months Results * (ABNORMAL) POCT lipid panel (03/18/2025 2:58 PM CDT) Cholesterol, POC 228 <200 MG/DL HDL, POC 33(A) >=40 mg/dL Triglycerides, POC 266(A) <=149 mg/dL LDL Cholesterol POC 142(A) <=129 mg/dL Chol/HDL Ratio, POC 6.9 NONE Non-HDL Cholesterol, POC 195 NONE mg/dL Cholesterol Total, POC 228(A) 30 - 199 mg/dL Capillary blood 03/18/2025 2 :58 PM CDT Amol Martinez MD POINT OF CARE TEST ORDER SHONA Final Result from Last 3 Months Insurance [facility] CHO[facility] PLUS [facility] CHO[facility] PLUS Care Teams Motor Power Connector Relationship Specialty Start Date End Date Deedee Long MD PCP - General Family Medicine 10/07/22
--- OUTSIDE RECORDS SUMMARY | 2025-05-12 11:04 | XMS_ITS | Patient Health Record ---
Author Organization [facility] Address [address] [place] [address] Care Team Providers Care Crew Team Member Name Role Phone Amol Long MD Primary Care Provider Eliza Hope Unavailable [phone] Gilda Ren Unavailable [phone] Allergies Allergen (clinical drug ingredient) Drug/Non Drug [...] Mirtazapine 30 MG TAKE 1 TABLET BY DAILY; Duration: 90 Active Clobetasol Propionate 0.05 % External [...] Problem Status W/U Status Risk Notes Problem Severe recurrent major depression without psychotic features (88297837) Major depressive disorder, recurrent severe without psychotic features (F33.2) Active confirmed Problem Recurrent major depressive episodes, moderate (770314379) Recurrent major depressive episodes, moderate (F33.1) Active confirmed Vital Signs Heart Rate 86 /min 06/11/2024 Height-cm 162.56 cm 06/11/2024 Blood pressure diastolic 91 mm Hg 06/11/2024 Weight-kg 123.29 kg 06/11/2024 Height 64.00 in 06/11/2024 Blood pressure systolic 133 mm Hg 06/11/2024 Weight 271.8 lbs 06/11/2024 BMI 46.65 kg/m2 06/11/2024 Encounters Encounter Location Date Provider Diagnosis [facility] [employer] [place] [address] [facility] [address] [address] 06/11/2024 Eliza Bustillo Generalized anxiety disorder F41.1 and Major depressive disorder, recurrent, in partial remission F33.41 [facility] [address] [address] 09/27/2024 Gilda Mikal Major depressive disorder, recurrent severe without psychotic features F33.2 [facility] [place] [address] [address] 06/14/2024 Thena Iwona [facility] [employer] [address] [address] 09/27/2024 Vikasa Iwona Assessments Encounter Date Diagnosis (ICD Code) [...] Insured Coverage Start Date Coverage End Date [facility] [address] [place] [address] [id number] SUMMER PHILLIPS Self - patient is the insured Medical (General) History Medical History History ICD Code Problems: Generalized anxiety disorder Recurrent major depression in partial re mission Severe obesity , Surgical History Surgery Date(Month/Year) hysterectomy
--- OUTSIDE RECORDS SUMMARY | 2025-05-12 11:04 | XMS_ITS | Encounter Summary ---
Author Organization [facility] Healthcare Address [address] [place] [address] Care Team Providers Care Teletype Or Varitype Keyboard Operator Name Role Phone Lacey Valente MD Primary Care Provider [phone] Kevin Vega MD Primary Care Provider [phone] Deedee Long MD Primary Care Provider + Encounter Details Date Type Department Care Team (Late st Contact Info) Description 12/21/2017 Orders Only [facility] Health Information Management [address] [place] [address] Scanning, Provider Social History Tobacco Use Types Packs/Day Years Used Date Smoking Tobacco: Never Assessed Comments Unknown Sex and Gender Information Value Date Recorded Sex Assigned at Not on file 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:55 AM PLASTER FOREMAN Gender Identity Not on file Sexual Orientation Not on file documented as of this encounter Plan of Treatment Not on file documented as of this encounter Procedures Procedure Name Priority Date/Time Associated Diagnosis Comments SCAN - RADIOLOGY/IMAGING 12/21/2017 documented in this encounter Results * SCAN - RADIOLOGY/IMAGING (12/21/2017) Anatomical Region Laterality Modality Other us Provider Scanning Final Result documented in this encounter Visit Diagnoses Not on filedocumented in this encounter Care Teams Teletype Or Varitype Keyboard Operator Relationship Specialty Start Date End Date Lacey Valente MD [address] [place], [place] [id number] PCP - General Family Medicine 12/29/17 12/29/17 Kevin Vega MD [address] [place] [address] PCP - General Family Medicine 12/30/17 10/06/22 Deedee Long MD [address] [place] [address] PCP - General Family Medicine 10/07/22 documented as of this encounter
--- OUTSIDE RECORDS SUMMARY | 2025-05-12 11:04 | XMS_ITS | Encounter Summary ---
Author Organization [facility] Healthcare Address [address] [place] [address] Care Team Providers Care Oil Lease Operator Name Role Phone Kevin Vega MD Primary Care Provider [phone] Deedee Long MD Primary Care Provider + Encounter Details Date Type Department Care Team (Late st Contact Info) Description 03/23/2018 Orders Only [facility] Health Information Management [address] [place] [address] Scanning, Provider Social History Tobacco Use Types Packs/Day Years Used Date Smoking Tobacco: Never Smokeless Tobacco: Never Alcohol Use Standard Drinks/Week Comments No 0 (1 standard drink = 0.6 oz pur e alcohol) Comments Unknown Sex and Gender Information Value Date Recorded Sex Assigned at Not on file 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:55 AM MENDER HAND Gender Identity Not on file Sexual Orientation Not on file documented as of this encounter Plan of Treatment Not on file documented as of this encounter Procedures Procedure Name Priority Date/Time Associated Diagnosis Comments SCAN - LABS 03/23/2018 documented in this encounter Results * SCAN - LABS (03/23/2018) us Provider Scanning Final Result documented in this encounter Visit Diagnoses Not on filedocumented in this encounter Care Teams Oil Lease Operator Relationship Specialty Start Date End Date Kevin Vega MD [address] [place] [address] PCP - General Family Medicine 12/30/17 10/06/22 Deedee Long MD [address] [place] [address] PCP - General Family Medicine 10/07/22 documented as of this encounter
--- OUTSIDE RECORDS SUMMARY | 2025-05-12 11:04 | XMS_ITS | Encounter Summary ---
Author Organization [facility] Healthcare Address [address] [place] [address] Care Team Providers Care Leather Shaver Name Role Phone Kevin Vega MD Primary Care Provider [phone] Deedee Long MD Primary Care Provider + Encounter Details Date Type Department Care Team (Late st Contact Info) Description 03/26/2018 Orders Only [facility] Health Information Management [address] [place] [address] Scanning, Provider Social History Tobacco Use Types Packs/Day Years Used Date Smoking Tobacco: Never Smokeless Tobacco: Never Alcohol Use Standard Drinks/Week Comments No 0 (1 standard drink = 0.6 oz pur e alcohol) Comments Unknown Sex and Gender Information Value Date Recorded Sex Assigned at Not on file 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:55 AM GREEN BUILDING MATERIALS DISTRIBUTOR Gender Identity Not on file Sexual Orientation Not on file documented as of this encounter Plan of Treatment Not on file documented as of this encounter Procedures Procedure Name Priority Date/Time Associated Diagnosis Comments SCAN - LABS 03/26/2018 documented in this encounter Results * SCAN - LABS (03/26/2018) us Provider Scanning Final Result documented in this encounter Visit Diagnoses Not on filedocumented in this encounter Care Teams Leather Shaver Relationship Specialty Start Date End Date Kevin Vega MD [address] [place] [address] PCP - General Family Medicine 12/30/17 10/06/22 Deedee Long MD [address] [place] [address] PCP - General Family Medicine 10/07/22 documented as of this encounter
--- OUTSIDE RECORDS SUMMARY | 2025-05-12 11:04 | XMS_ITS | Encounter Summary ---
Author Organization [facility] Healthcare Address [address] [place] [address] Care Team Providers Care Environmental Journalist Name Role Phone Lacey Valente MD Primary Care Provider [phone] Kevin Vega MD Primary Care Provider [phone] Deedee Long MD Primary Care Provider + Encounter Details Date Type Department Care Team (Late st Contact Info) Description 12/25/2017 Orders Only [facility] Health Information Management [address] [place] [address] Scanning, Provider Social History Tobacco Use Types Packs/Day Years Used Date Smoking Tobacco: Never Assessed Comments Unknown Sex and Gender Information Value Date Recorded Sex Assigned at Not on file 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:55 AM PROPERTY TECHNICIAN Gender Identity Not on file Sexual Orientation Not on file documented as of this encounter Plan of Treatment Not on file documented as of this encounter Procedures Procedure Name Priority Date/Time Associated Diagnosis Comments CARDIOLOGY DOCUMENT SCAN 12/25/2017 documented in this encounter Results * Cardiology Document Scan (12/25/2017) Anatomical Region Laterality Modality Other us Provider Scanning CV CARDIAC SERVICES PROCEDURES Final Result documented in this encounter Visit Diagnoses Not on filedocumented in this encounter Care Teams Environmental Journalist Relationship Specialty Start Date End Date Lacey Valente MD [address] [place], [place] [id number] PCP - General Family Medicine 12/29/17 12/29/17 Kevin Vega MD [address] [place] [address] PCP - General Family Medicine 12/30/17 10/06/22 Deedee Long MD [address] [place] [address] PCP - General Family Medicine 10/07/22 documented as of this encounter
--- OUTSIDE RECORDS SUMMARY | 2025-05-12 11:05 | XMS_ITS ---
Author Organization [facility] [employer] [facility] Address [facility] [address] [address] Care Team Providers Care Pigment Pusher Name Role Phone Mercedes GUZMAN, Amol Primary Care Provider Eliza Hope [phone] REASON FOR VISIT Pt is still in ER since yesterday. Social History Sex Assigned At : Social History Observation Description Sex Assigned At Female Encounters Encounter Location Date Provider Diagnosis [facility] [employer] [place] [address] [address] 10/22/2024 Eliza Jordan Plan Of Treatment No Information Progress Notes * SUMMER PHILLIPS LDOB:1984 (40 yo F)Acc No.[id number]:10/22/2024 Patient: SUMMER MCGEE Provider: Santo JORDAN MD :1985 A ge:39 Y S ex:Female Date:10/22/2024 Address[address] [facility] [facility] Pcp:Amol Long MD Subjective: * Chief Complaints: * 1 . Pt is still in ER since yesterday.. * Medical History: Objective: * Vitals: Assessment: Plan: * Treatment: * Billing Information: * Visit Code: * Procedure Codes: * Electronic signature of Vikas Jordan MD on 05/12/2025 at 11:04 AM CDT Sign off status: Pending * Provider: Santo JORDAN MD Date: 10/22/2024 Generated for Olivia tello/Avila/Sheryasmitting on: 0 05/12/2025 11:04 AM CDT
== END 2025-05-12 10:49 | disposition home or self-care (01) ==
LOC: ANHGOSHLAB 10:49
PROVIDERS: PCP Family Medicine; Visit Provider Nurse Practitioner Family
DX: N30.90 Cystitis, unspecified without hematuria (principal)
CPT/HCPCS: 87086

== ENCOUNTER 2025-08-03 08:57 | Outpatient (CLI) | payer OTHER, SELFPAY ==
--- OUTSIDE RECORDS SUMMARY | 2025-08-03 09:22 | XMS_ITS | Clinical Summary ---
Author Organization [facility] [address] Address [address] [place] [address] Care Team Providers Care Resource Technician Name Role Phone Deedee Long MD Primary [...] (six) hours 4 Active metoprolol XL (TOPROL-XL) 50 mg [...] spray into each nostril daily [address] (CYMBALTA) 60 mg capsule Take 1 capsule (60 mg total) by mouth daily Active lisinopriL (PRINIVIL,ZESTRIL) 10 mg tablet TAKE 1 TABLET(10 MG) BY MOUTH DAILY 90 tablet 1 5 Active metoprolol XL (TOPROL-XL) 100 mg 24 hr tabletIndications: Palpitations TAKE 1 TABLET BY MOUTH DAILY WITH THE 50MG TABLETS 90 tablet 3 5 Active Active Problems Problem Noted Date Diagnosed [...] Morbid obesity with BMI of 45.0-49.9, adult ([facility]) 12/30/2017 Lipid screening 12/30/2017 QT prolongation [...] Comments Arthritis Father Lj Karmen Depression Father Lj Peraza Diabetes Father Lj Peraza Drug abuse Father Lj Peraza Heart disease Father Lj Peraza Hypertension Father Lj Peraza Mental illness Father Lj Peraza Cancer Maternal Grandfather Yan Morriscsi Clotting disorder Maternal Grandfather Yan Guan si Heart attack Maternal Grandfather Yan Yamilakacsi Hypertension Maternal Grandfather Yan Yamilakacsi Anemia Maternal Grandmother Floresita Yamilbilli Diabetes Maternal Grandmother Floresita Yamilpietercsi Obesity Maternal Grandmother Florestia Yamilpieterdona Vision loss Maternal Grandmother Floresita Yamilpietercsmarcelo Arthritis Mother Dinora Peraza Hypertension Mother Dinora Peraza Obesity Mother Dinora Peraza Cancer Paternal Grandmother Hanna Ananya Chino Drug abuse Sister 3 Yanira Peraza Mental illness Sister 3 Yanira Peraza Relation Name Status Comments Father Lj Peraza Alive Maternal Grandfather Yan Morriscsi Maternal Grandmother Floresita Morriscsi Mother Dinora Peraza [...] on file 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:55 AM ELECTRIC CELL TENDER Gender Identity Not on file Sexual Orientation [...] patient's age to complete this topic Insurance [facility] PL[facility]/PPO Address: [address] [address] [place] [address] [facility]/PPO Address: [address] [address] [place] [address] Care Teams Resource Technician Relationship Specialty Start Date End Date Deedee Long MD PCP - General Family Medicine 10/07/22
--- OUTSIDE RECORDS SUMMARY | 2025-08-03 09:22 | XMS_ITS | Encounter Summary ---
Author Organization [facility] Address [address] [place] [address] Care Team Providers Care Orthotist Prosthetist Name Role Phone Dionte Vega MD Primary Care Provider [phone] Encounter Details Date Type Department Care Team (Late st Contact Info) Description 06/20/2008 Emergency [facility] Er, Authorized P NO ADDRESS ON FILE Kayden Anderson MD [facility] [place], [place] [id number] Social History Tobacco Use Types Packs/Day Years Used Date Smoking Tobacco: Never Assessed Comments Unknown Sex and Gender Information Value Date Recorded Sex Assigned at Not on file Legal Sex Female 5:38 AM ASL INTERPRETER Gender Identity Not on file Sexual Orientation [...] PM CDT Narrative 06/20/2008 2:56 PM CDT [id number] [place], [place] [address] Admit Date: 06/20/2008 [facility] Sex: F Admit Prov: ER, AUTHORIZED P Date: 1985 Primary Care Prov: CMRN: [id number] Room: ER-A N: [id number] IMAGING SERVICES Ordering Prov: N/A Accession Number: [id number] Interpretation CT of the abdomen and pelvis [...] Procedure Note Tennille Ervin MD - 06/20/2008 [id number] [place], [place] [address] Admit Date: 06/20/2008 SUM[facility] ABRAMS Sex: F Admit Prov: ER, AUTHORIZED P Date: 1985 Primary Care Prov: CMRN: [id number] Room: -A N: [id number] IMAGING SERVICES Ordering Prov: N/A Interpretation CT [...] SPECIFIC GRAVITY UA 1.015 1.001 - 1.030 [facility] GLUCOSE UA Negative Negative [facility] COLOR UA Pale [facility] NITRITE UA Negative Negative [facility] BILIRUBIN UA Negative Negative [facility] PH UA 6.0 5.0 - 8.0 [facility] KETONES UA Negative Negative [facility] CLARITY UA Clear [facility] PROTEIN UA Negative Negative [facility] BLOOD UA 1+(A) Negative [facility] LEUKOCYTE ESTERASE UA Trace(A) Negative [facility] UROBILINOGEN UA Normal <=1 mg/dL [facility] Urine specimen (specimen) 06/20/2008 12:59 PM CDT 06/20/2008 12:59 PM CDT us Authorized P Er POINT OF CARE TESTING Final Resu lt Performing Organization Address [place]/[facility] Co de Phone Number INTERFACE SYSTEM Refer to clinic/hospital department [facility] CLIA# [id number] [address] [place] [address] * POC , URINE (06/20/2008 12:59 PM CDT) , URINE POC Negative Negative [facility] SPECIFIC GRAVITY UA 1.015 1.001 - 1.035 [facility] Urine specimen (specimen) 06/20/2008 12:59 PM CDT 06/20/2008 12:59 PM CDT us Authorized P Er POINT OF CARE TESTING Final Resu lt Performing Organization Address [facility] de Phone Number INTERFACE SYSTEM Refer to clinic/hospital department [facility] CLIA# [id number] [address] [place] [address] documented in this encounter Visit Diagnoses Not on filedocumented in this encounter Care Teams Orthotist Prosthetist Relationship Specialty Start Date End Date Dionte Vega MD [address] [place] [address] PCP - General Family Practice 05/25/10 documented as of this encounter
--- OUTSIDE RECORDS SUMMARY | 2025-08-03 09:23 | XMS_ITS | Encounter Summary ---
Author Organization [facility] Healthcare Address [address] [place] [address] Care Team Providers Care Windlasser Name Role Phone Kevin Vega MD Primary Care Provider [phone] Deedee Long MD Primary Care Provider + Encounter Details Date Type Department Care Team (Late st Contact Info) Description 03/26/2018 Orders Only [facility] Health Information Management [address] [place] [address] Scanning, Provider Social History Tobacco Use Types Packs/Day Years Used Date Smoking Tobacco: Never Smokeless Tobacco: Never Alcohol Use Standard Drinks/Week Comments No 0 (1 standard drink = 0.6 oz pur e alcohol) Comments Unknown Sex and Gender Information Value Date Recorded Sex Assigned at Not on file 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:55 AM BI ARCHITECT Gender Identity Not on file Sexual Orientation [...] on filedocumented in this encounter Care Teams Windlasser Relationship Specialty Start Date End Date Kevin Vega MD [address] [place] [address] PCP - General Family Medicine 12/30/17 10/06/22 Deedee Long MD [address] [place] [address] PCP - General Family Medicine 10/07/22 documented as of this encounter
--- OUTSIDE RECORDS SUMMARY | 2025-08-03 09:23 | XMS_ITS | Encounter Summary ---
Author Organization [facility] Healthcare Address [address] [place] [address] Care Team Providers Care Canal Superintendent Name Role Phone Lacey Valente MD Primary Care Provider [phone] Kevin Vega MD Primary Care Provider [phone] Deedee Long MD Primary Care Provider + Encounter Details Date Type Department Care Team (Late st Contact Info) Description 12/25/2017 Orders Only [facility] Health Information Management [address] [place] [address] Scanning, Provider Social History Tobacco Use Types Packs/Day Years Used Date Smoking Tobacco: Never Assessed Comments Unknown Sex and Gender Information Value Date Recorded Sex Assigned at Not on file 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
--- OUTSIDE RECORDS SUMMARY | 2025-08-03 09:23 | XMS_ITS | Clinical Summary ---
Author Organization [facility] Address [address] [place] [phone] Phone Care Team Providers Care Product Accountant Name Role Phone Dionte Vega MD Primary [...] OXALATE ORAL Take by mouth. Active OM [id number] ORAL Take by mouth. 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 Gender Identity Not on file Sexual Orientation [...] 19+ 3-dose series) 2003 HPV/Cotest (21-29) 2005 HPV VACCINES (1 - 3-dose SCD M series) 2011 CERVICAL CANCER SCREENING 2014 HPV/Cotest (30-65) 2014 PAP SMEAR 2014 BREAST CANCER SCREENING 2024 11/08/19, 04/15/2019, 04/15/2019 INFLUENZA VACCINE (#1) 2025 COVID-19 Vaccine (3 - 2024-2 6 season) 2025 12/29/2020, 11/30/2020 Medical Devices Implanted Type Area Jewelry Bearing Maker Device Identifier Shelf Expiration Date Model / Serial / Lot Hemostatic Surgicel 2x3in 1953 - [id number] Implanted:Qty : 1 on 02/09/2021 by Erika Martinez MD at [facility] Hemostatic Right: Breast [employer] [id number] 10/29/20241952 / / [id number] Breast Biopsy Clips-Bilater al Procedures Procedure Name [...] Most Recently Relevant to Health Maintenance Insurance [facility] [employer] PPO [id number] Care Teams Product Accountant Relationship Specialty Start Date End Date Dionte Vega MD [address] [place] [id number] PCP - General Family Practice 05/25/10
--- OUTSIDE RECORDS SUMMARY | 2025-08-03 09:23 | XMS_ITS | Encounter Summary ---
Author Organization [facility] Healthcare Address [address] [place] [address] Care Team Providers Care Political Theory Professor Name Role Phone Lacey Valente MD Primary Care Provider [phone] Kevin Vega MD Primary Care Provider [phone] Deedee Long MD Primary Care Provider + Encounter Details Date Type Department Care Team (Late st Contact Info) Description 12/21/2017 Orders Only [facility] Health Information Management [address] [place] [id number] Scanning, Provider Social History Tobacco Use Types Packs/Day Years Used Date Smoking Tobacco: Never Assessed Comments Unknown Sex and Gender Information Value Date Recorded Sex Assigned at Not on file 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
--- OUTSIDE RECORDS SUMMARY | 2025-08-03 09:23 | XMS_ITS | Encounter Summary ---
Author Organization [facility] Healthcare Address [address] [place] [address] Care Team Providers Care Stack Clerk Name Role Phone Kevin Vega MD Primary Care Provider [phone] Deedee Long MD Primary Care Provider + Encounter Details Date Type Department Care Team (Late st Contact Info) Description 03/23/2018 Orders Only [facility] Health Information Management [address] [place] [address] Scanning, Provider Social History Tobacco Use Types Packs/Day Years Used Date Smoking Tobacco: Never Smokeless Tobacco: Never Alcohol Use Standard Drinks/Week Comments No 0 (1 standard drink = 0.6 oz pur e alcohol) Comments Unknown Sex and Gender Information Value Date Recorded Sex Assigned at Not on file 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
[2025-08-03 15:52] LABS: Cholesterol 208 mg/dL (0-200); HDL Direct 35 mg/dL; Triglycerides 244 mg/dL (<150)
[2025-08-03 16:32] LABS: Thyroid Stimulating Hormone 5.890 uIU/mL (0.465-4.680)
[2025-08-03 16:51] LABS: Vitamin B12 870.0 pg/mL (239-931)
[2025-08-03 17:18] LABS: Hemoglobin A1C 5.6 % (<5.7)
== END 2025-08-03 08:58 | disposition home or self-care (01) ==
LOC: ANHGOSHLAB 08:58
PROVIDERS: PCP Family Medicine; Visit Provider Student in an Organized Health Care Education/Training Program
DX: K76.0 Fatty (change of) liver, not elsewhere classified (principal); I10 Essential (primary) hypertension; R73.03 Prediabetes; E66.01 Morbid (severe) obesity due to excess calories; R53.83 Other fatigue; E55.9 Vitamin D deficiency, unspecified
CPT/HCPCS: 36415; 80061; 82306; 82607; 83036; 84443

== ENCOUNTER 2025-08-04 11:49 | Emergency (ER) | payer OTHER, SELFPAY ==
[2025-08-04 11:57] VITALS: BP 139/84; PULSE 67; RESP 18; TEMP 36.4; O2SAT 99
--- NOTE | 2025-08-04 12:43 | ED.EAR ---
HPI - Ear Problem General Chief complaint: Ear Stated complaint: pain in mouth and neck Time Seen by Provider: 08/04/25 12:30 Source: patient and RN notes reviewed Mode of arrival: ambulatory Limitations: no limitations History of Present Illness HPI Narrative: 40-year-old female presents Express Care complaining of left-sided ear pain for 2 days. Patient was seen in her ENT yesterday was diagnosed with cellulitis/folliculitis of her ear was told to use triple antibiotic ointment. Patient's history of ear tubes her left ear. Patient says the pain is getting worse and started radiating into her left jaw down into her neck. Patient denies any fevers, body aches, chills, nausea vomiting, diarrhea, chest pain, difficulty breathing, upper respiratory symptoms, cough, or any other symptoms. Patient also has a history of TMJ the left jaw. Related Data Home Medications ?Medication ?Instructions ?Recorded ?Confirmed ?Last Taken ?Type lisinopril 10 mg tablet 10 mg PO DAILY 10/11/22 08/03/25 12/23/23 History multivitamin 1 tablet PO DAILY 12/22/23 08/03/25 12/20/23 History omega-3 fatty acids 1,000 mg 1,000 mg PO DAILY 04/22/24 08/03/25 Unknown History capsule cyclobenzaprine 10 mg tablet mg PO 03/03/25 08/03/25 Unknown History metoprolol succinate 100 mg mg PO 03/03/25 08/03/25 Unknown History tablet,extended release 24 hr Allergies Allergy/AdvReac Type Severity Reaction Status Date / Time sulfamethoxazole (From Allergy Severe Rash Verified 08/04/25 12:09 Bactrim) trimethoprim (From Bactrim) Allergy Severe Rash Verified 08/04/25 12:09 duloxetine Allergy Intermediate Itching Verified 08/04/25 12:09 amlodipine Allergy Unknown peripheral Verified 08/04/25 12:09 edema promethazine Allergy Unknown Skin Verified 08/04/25 12:09 Reaction nirmatrelvir (From Paxlovid) AdvReac Severe cardiac Verified 08/04/25 12:09 ritonavir (From Paxlovid) AdvReac Severe cardiac Verified 08/04/25 12:09 latex AdvReac Itching Verified 08/04/25 12:09 neomycin, polymyxin and AdvReac Intermediate Other Uncoded 08/03/25 08:44 hydrocortisone otic drops Review of Systems Review of Systems: CONSTITUTIONAL: Denies fever, body aches, chills, or sweats. EYES: Denies visual changes, redness, or discharge. ENT: Denies rhinorrhea, congestion, sore throat. Positive for otalgia. CARDIOVASCULAR: Denies chest pain, palpitations, or edema. RESPIRATORY: Denies cough or dyspnea. GASTROINTESTINAL: Denies abdominal pain, nausea, vomiting, or diarrhea. GENITOURINARY: Denies dysuria or hematuria. SKIN: Denies rash or itching. MUSCULOSKELETAL: Denies back pain, joint pain, or myalgia. NEUROLOGIC: Denies headache, numbness, or weakness. PSYCHIATRIC: Denies anxiety or depression. All other systems reviewed are negative, except as documented in HPI. [facility] Past Medical History Medical History Perforation of left tympanic membrane Endometriosis seen on candelaria/bso path 2023 Otitis externa of left ear Otorrhea, left ear Fungal otitis externa Chest wall pain Otorrhea, left ear Nasal congestion Prediabetes 3.9.22 hgba1c 5.9 COVID Bruxism Otalgia of both ears Ear itching IBS (irritable bowel syndrome) Otitis externa of right ear Esophageal reflux Benign essential hypertension Acute gastritis Fibromyalgia PVC (premature ventricular contraction) Panic disorder without agoraphobia Surgical History Surgical History S/P CANDELARIA-BSO 3.27.24 History of placement of ear tubes H/O wisdom tooth extraction H/O dilation and curettage H/O: section Hx of cholecystectomy Family History Family History Other Cerebrovascular accident Diabetes mellitus Family history of malignant neoplasm Hypertension Social History Social History Smoking packs per day: 1 Smoking cigarettes per day: 20.0 Years smoked: 5 Smoking pack-years: 5.00 Alcohol intake: never Alcohol use details: occasionally Substance use: never Substance use type: marijuana Other substance usage details: EDIBLES Do You Feel Safe in your Home?: Yes Lack of Transportation: No Lack of Food: Never True Current Housing: I Have Housing Concerned About Future Housing: No Difficulty Paying Gas/Electric Bills: No Difficulty Paying for Meds: No Currently Unemployed: No Education: Bachelor's Degree Difficulty w/ Childcare or Family Care: No Living arrangements: with family Spiritual care concerns: No Comments At the time of my signature, I reviewed and agree with the nursing past medical, surgical, social, and family history. There is no relevant family history pertinent to the patient complaint. Exam Narrative: GENERAL: This is a well-nourished, well-developed adult, in no apparent distress. They are non ill-appearing, nontoxic appearing. Patient morbidly obese. Will exam limited due to large body habitus. HEAD: normocephalic, atraumatic. EYES: Sclera clear/white. Conjunctiva normal. Vision is grossly intact. Extraocular movements intact EARS: External ears normal, right auditory canal clear and without drainage, left tragal tenderness. Left auditory canal erythematous. No exudate. TMs normal without perforation. Left ear tube present. Hearing grossly intact. No mastoid tenderness bilaterally. NOSE: External nose normal with no obvious nasal discharge, nasal turbinates without redness, no rhinorrhea. THROAT: Mucous membranes moist, posterior pharynx clear, without erythema or swelling. Uvula midline. OROPHARYNX: Left TMJ tender to palpate. No missing teeth or fractured teeth. No tooth decay. No gingivitis. Tongue midline. No pain or swelling under the tongue. No trismus. NECK: Neck supple, non-tender without lymphadenopathy, masses or thyromegaly. CARDIOVASCULAR: Regular rate and rhythm without murmurs, gallops, or rubs. RESPIRATORY: Clear to auscultation. Breath sounds equal bilaterally. No wheezes, rales, or rhonchi. SKIN: warm, Dry, intact with no suspicious lesions or rash, good texture and turgor. NEURO: awake, alert, and oriented to person, place and time. There were no obvious focal neurologic abnormalities. EXTREMITIES: No joint tenderness, effusion, or edema noted. Course Course Emergency Course: Portions of this record may have been created with voice recognition software Level of Care: Express Care Visit Vital Signs Vital signs: Vital Signs Temperature 97.6 F 08/04/25 11:57 Pulse Rate 67 08/04/25 11:57 Respiratory Rate 18 08/04/25 11:57 Blood Pressure 139/84 08/04/25 11:57 Pulse Oximetry 99 08/04/25 11:57 Oxygen Delivery Room Air 08/04/25 11:57 Temperature 97.6 F 08/04/25 11:57 Pulse Rate 67 08/04/25 11:57 Respiratory Rate 18 08/04/25 11:57 Blood Pressure 139/84 08/04/25 11:57 Pulse Oximetry 99 08/04/25 11:57 Oxygen Delivery Room Air 08/04/25 11:57 Reviewed Medical Decision Making MDM Narrative Medical decision making narrative: Appears patient has a left-sided otitis externa. No auricle cellulitis noted. Will treat with Cipro dexamethasone drops. Discussed physical exam findings. Advised supportive measures and signs/symptoms to go to the ER. Pt is appropriate for outpt treatment and f/u. Differential Diagnosis Differential Diagnosis: TMJ, otitis media, otitis externa, cellulitis Vital Signs Vital Signs: Vital Signs Temperature 97.6 F 08/04/25 11:57 Pulse Rate 67 08/04/25 11:57 Respiratory Rate 18 08/04/25 11:57 Blood Pressure 139/84 08/04/25 11:57 Pulse Oximetry 99 08/04/25 11:57 Oxygen Delivery Room Air 08/04/25 11:57 Temperature 97.6 F 08/04/25 11:57 Pulse Rate 67 08/04/25 11:57 Respiratory Rate 18 08/04/25 11:57 Blood Pressure 139/84 08/04/25 11:57 Pulse Oximetry 99 08/04/25 11:57 Oxygen Delivery Room Air 08/04/25 11:57 Critical Care Time Critical Care Time Critical Care Time: No Discharge Plan Discharge Clinical Impression: Otitis externa Qualifiers: Otitis externa type: diffuse Chronicity: acute Laterality: right Qualified Code(s): H60.311 - Diffuse otitis externa, right ear Patient Disposition: Home Condition: Stable Instructions: Antibiotic Form, Ear Infection (ED) Additional Instructions: Take antibiotic drops as directed. Tylenol Motrin as needed for pain. Follow instructions on the bottle. Avoid water or anything into the ear for one week Follow up with your personal physician or your ENT for further evaluation and treatment within 3-5days. If your symptoms persist, change or worsen significantly, go to the emergency department for further evaluation. Patient Language: Chinese Prescriptions: New ciprofloxacin-dexamethasone 0.3-0.1 % drops,suspension 4 drp LEFT EAR Q12H 7 Days Qty: 7.5 0RF No Action lisinopril 10 mg tablet 10 mg PO DAILY Rx Instructions: HAS NOT BEEN TAKING PAST COUPLE WEEK BP LOW clobetasol 0.05 % solution See Rx Instructions .ROUTE .COMPLEX Qty: 50 0RF Dose Instruction: APPLY TOPICALLY TO THE AFFECTED AREA DAILY Rx Instructions: APPLY TOPICALLY TO THE AFFECTED AREA DAILY metoprolol succinate 100 mg tablet extended release 24 hr PO cyclobenzaprine 10 mg tablet PO buspirone 15 mg tablet 15 mg PO BID Qty: 90 1RF gabapentin 300 mg capsule See Rx Instructions PO BID Qty: 150 3RF Rx Instructions: Take 900 mg (3 capsules) in the am and 600 mg (2 capsules) in the evening. multivitamin Tablet 1 tablet PO DAILY omega-3 fatty acids 1,000 mg capsule 1,000 mg PO DAILY hyoscyamine sulfate 0.125 mg tablet See Rx Instructions .ROUTE .COMPLEX Qty: 30 5RF Dose Instruction: TAKE 1 TABLET BY MOUTH FOUR TIMES DAILY Rx Instructions: TAKE 1 TABLET BY MOUTH FOUR TIMES DAILY alprazolam 0.25 mg tablet 0.25 mg PO BID PRN (Reason: anxiety) Qty: 60 5RF sumatriptan succinate 25 mg tablet See Rx Instructions PO .COMPLEX Qty: 14 5RF Rx Instructions: take 1 tab at onset of headache; if no relief may repeat 1 tab after at least 2 hrs; max = 4 tabs/24 hr PO triamterene-hydrochlorothiazid 37.5-25 mg tablet 1 tablet PO DAILY Qty: 90 1RF metformin 500 mg tablet extended release 24 hr 500 mg PO BID Qty: 180 1RF metoprolol succinate 50 mg tablet extended release 24 hr 150 mg PO DAILY Qty: 270 1RF duloxetine 60 mg capsule,delayed release(DR/EC) 60 mg PO DAILY Qty: 90 1RF pantoprazole 40 mg tablet,delayed release (DR/EC) See Rx Instructions .ROUTE .COMPLEX Qty: 180 1RF Dose Instruction: TAKE 1 TABLET BY MOUTH TWICE DAILY Rx Instructions: TAKE 1 TABLET BY MOUTH TWICE DAILY Follow-up/Referrals: Deedee Long MD [Primary Care Provider, Family Practice] Stand Alone Forms: Work/School Release IP Time of Disposition: 12:40
== END 2025-08-04 12:44 | disposition home or self-care (01) ==
PROVIDERS: PCP Family Medicine
DX: H60.311 Diffuse otitis externa, right ear (principal); F17.210 Nicotine dependence, cigarettes, uncomplicated; F12.90 Cannabis use, unspecified, uncomplicated; I10 Essential (primary) hypertension; M79.7 Fibromyalgia; K21.9 Gastro-esophageal reflux disease without esophagitis; R73.03 Prediabetes; N80.9 Endometriosis, unspecified; Z86.16 Personal history of COVID-19
CPT/HCPCS: 99213; G0463

== ENCOUNTER 2025-08-16 17:34 | Emergency (ER) | payer OTHER, SELFPAY ==
--- OUTSIDE RECORDS SUMMARY | 2024-05-13 05:30 | XMS_ITS ---
Author Organization [facility] Address [address] [place] [address] Care Team Providers Care Proration Clerk Name Role Phone Amol Long MD Primary Care Provider Eliza Hope Unavailable [phone] Allergies Allergen (clinical drug ingredient) Drug/Non Drug Allergy documented on EMR Reaction Allergy Type Onset Date Status ritonavir Ritonavir Unknown Drug Allergy 11/21/2023 Active amlodipine Amlodipine Unknown Drug Allergy 11/21/2023 Acti ve Latex Latex Unknown Allergy Active promethazine Promethazine Unknown Drug Allergy 11/21/2023 Active nirmatrelvir Nirmatrelvir Unknown Drug Allergy 11/21/2023 Active REASON FOR VISIT Follow up Medications Medication SIG (Take, Route, Frequency, Duration) Notes Start Date End Date Status Eletriptan Hydrobromide 20 M G Tablet Oral 11/21/2023 Active Metoprolol Succinate ER 50 M G Tablet Extended Release 24 Hour Oral 11/21/2023 Active Lisinopril 10 MG Tablet Oral 11/21/2023 Active Savella 50 MG Tablet Oral 11/21/2023 Active Triamterene-HCTZ 37.5-25 MG Tablet Oral 11/21/2023 Active busPIRone HCl 15 MG Tablet Oral 11/21/2023 Active Mirtazapine 15 MG Tablet Oral 11/21/2023 Active Ibuprofen 800 MG Tablet Oral 11/21/2023 Active Mupirocin 2% Ointment External 11/21/2023 Active Ondansetron 8 MG Tablet Disintegrating Oral 11/21/2023 Active Metoprolol Succinate ER 100 MG Tablet Extended Release 24 Hour Oral 11/21/2023 Active Oseltamivir Phosphate 75 MG Capsule Oral 11/21/2023 Active Clobetasol Propionate 0.05 % Solution External 11/21/2023 Active Pantoprazole Sodium 40 MG Tablet Delayed Release Oral 11/21/2023 Activ e metFORMIN HCl ER 500 MG Tablet Extended Release 24 Hour Oral 11/21/2023 Active Estradiol 1 MG Tablet 1 tablet Orally On ce a day Active Cyclobenzaprine HCl 10 MG Tablet 1 tablet at bedtime as needed Orally Once a day Active Social History Sex Assigned At : Social History Observation Description Sex Assigned At Female Vital Signs Height 64.00 in 05/13/2024 Height-cm 162.56 cm 05/13/2024 Encounters Encounter Location Date Provider Diagnosis [facility] [address] [facility] [address] [place] [address] 05/13/2024 Eliza Jordan Plan Of Treatment No Information Progress Notes * SUMMER PHILLIPS LDOB:1984 (40 yo F)Acc No.[id number]:05/13/2024 Patient: SUMMER MCGEE Provider: Santo JORDAN MD :1985 A ge:39 Y S ex:Female Date:05/13/2024 Address:[address] [place] [address] [address] [id number] Pcp:Amol Long MD Subjective: * Chief Complaints: * F ollow up * Medical History: Problems: Generalized anxiety disorder Recurrent major depression in partial remission Severe obesity , * Medications: T akingEstradiol 1 MG Tablet 1 tablet Orally Once a day Cyclobenzaprine HCl 10 MG Tablet 1 tablet at bedtime as needed Orally Once a day metFORMIN HCl ER 500 MG Tablet Extended Release 24 Hour Oral Clobetasol Propionate 0.05 % Solution External Oseltamivir Phosphate 75 MG Capsule Oral Pantoprazole Sodium 40 MG Tablet Delayed Release Oral Metoprolol Succinate ER 100 MG Tablet Extended Release 24 Hour Oral busPIRone HCl 15 MG Tablet Oral Ibuprofen 800 MG Tablet Oral Mirtazapine 15 MG Tablet Oral Ondansetron 8 MG Tablet Disintegrating Oral Mupirocin 2% Ointment External Triamterene-HCTZ 37.5-25 MG Tablet Oral Savella 50 MG Tablet Oral Lisinopril 10 MG Tablet Oral Metoprolol Succinate ER 50 MG Tablet Extended Release 24 Hour Oral Eletriptan Hydrobromide 20 MG Tablet Oral Taking Estradiol 1 MG Tablet 1 tablet Orally Once a day Taking Cyclobenzaprine HCl 10 MG Tablet 1 tablet at bedtime as needed Orally Once a day Taking metFORMIN HCl ER 500 MG Tablet Extended Release 24 Hour Oral Taking Clobetasol Propionate 0.05 % Solution External Taking Oseltamivir Phosphate 75 MG Capsule Oral Taking Pantoprazole Sodium 40 MG Tablet Delayed Release Oral Taking Metoprolol Succinate ER 100 MG Tablet Extended Release 24 Hour Oral Taking busPIRone HCl 15 MG Tablet Oral Taking Ibuprofen 800 MG Tablet Oral Taking Mirtazapine 15 MG Tablet Oral Taking Ondansetron 8 MG Tablet Disintegrating Oral Taking Mupirocin 2% Ointment External Taking Triamterene-HCTZ 37.5-25 MG Tablet Oral Taking Savella 50 MG Tablet Oral Taking Lisinopril 10 MG Tablet Oral Taking Metoprolol Succinate ER 50 MG Tablet Extended Release 24 Hour Oral Taking Eletriptan Hydrobromide 20 MG Tablet Oral * Allergies: R itonavir: Allergy - Onset Date 11/21/2023mlodipine: Allergy - Onset Date 11/21/2023romethazine: Allergy - Onset Date 11/21/2023Nirmatrelvir: Allergy - Onset Date 11/21/2023LatexyesAllergies Verified. Objective: * Vitals: H t: 64.00 in, Ht-cm: 162.56 cm. 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
--- OUTSIDE RECORDS SUMMARY | 2024-07-23 04:00 | XMS_ITS ---
Author Organization [facility] Address [address] [place] [address] Care Team Providers Care Classified Advertising Supervisor Name Role Phone Mercedes GUZMAN, Amol Primary Care Provider Eliza Hope Unavailable [phone] Social History Sex Assigned At : Social History Observation Description Sex Assigned At Female Encounters Encounter Location Date Provider Diagnosis [facility] [employer] [place] [address] [place] [address] 07/23/2024 Thena Iwona Plan Of Treatment No Information Progress Notes * SUMMER PHILLIPS LDOB:1984 (40 yo F)Acc No.[id number]:07/23/2024 Patient: Marquez LEZAMA SUMMER Do Provider: Santo JORDAN MD :1985 A ge:39 Y S ex:Female Date:07/23/2024 Address[address] [facility] Pcp:Amol Long MD Billing Information: * Procedure Codes: * Electronic signature of Vikas Jordan MD on 08/17/2025 at 04:06 AM FIELD [employer]IL WINDER Sign off status: Pending * Provider: Santo JORDAN MD Date: Generated for Printi ng/Faxing/eTransmitting on: 10/17/2024 04:06 AM FIELD COIL WINDER
--- OUTSIDE RECORDS SUMMARY | 2024-10-22 03:00 | XMS_ITS ---
Author Organization [facility] Address [facility] [address] [address] Care Team Providers Care Vessel Scrapper Helper Name Role Phone Mercedes GUZMAN, Amol Primary Care Provider Eliza Hope [phone] REASON FOR VISIT Pt is still in ER since yesterday. Social History Sex Assigned At : Social History Observation Description Sex Assigned At Female Encounters Encounter Location Date Provider Diagnosis [facility] [employer] [place] [address] [facility] [address] [phone] 10/22/2024 Eliza Jordan Plan Of Treatment No Information Progress Notes * SUMMER PHILLIPS LDOB:1984 (40 yo F)Acc No.[id number]:10/22/2024 Patient: SUMMER MCGEE Provider: Santo JORDAN MD :1985 A ge:39 Y S ex:Female Date:10/22/2024 Address[address] [facility] Pcp:Amol Long MD Subjective: * Chief Complaints: * P t is still in ER since yesterday. Billing Information: * Procedure Codes: * Electronic signature of Vikas Jordan MD on 08/17/2025 at 04:12 AM ENVIRONMENTAL PLANNING ENGINEER Sign off status: Pending * Provider: Santo JORDAN MD Date: 0 10/22/2024 Generated for Printi ng/Faxing/eTransmitting on: 10/17/2024 04:12 AM ENVIRONMENTAL PLANNING ENGINEER
[2025-08-16] VITALS (9 sets, daily range): BP systolic 107–142; BP diastolic 59–94; PULSE 69–91; RESP 11–19; TEMP 36.5; O2SAT 96–98
--- NOTE | ~2025-08-16 | CT_ITS ---
CT HEAD NON-CONTRAST Clinical History: headache Comparison: 11/26/2024 Technique: Unenhanced axial images skull base to vertex Coronal, sagittal reformats CT images acquired with automatic exposure control for dose reduction DLP: 605 mGy-cm Findings: Sulci, ventricles: Unremarkable. No intracerebral hemorrhage. No evidence acute territorial infarct. No mass effect, midline shift. Bony calvarium intact. Visualized paranasal sinuses: Clear. Mastoid air cells: Clear. IMPRESSION: 1. No acute intracranial findings. Reviewed, dictated and finalized at location R. UE FINISHER
--- NOTE | ~2025-08-16 | XR_ITS ---
Examination: XR chest 1V Clinical History: chest pain Comparison: 02/23/2025 Technique: Portable AP Findings: Heart size normal. Lungs clear. No acute bony abnormality. IMPRESSION: 1. No acute cardiopulmonary findings given portable technique. Reviewed, dictated and finalized at location R. CTOR OF TESTING
--- NOTE | 2025-08-16 22:01 | ECG_ITS ---
Test Date: 2025-08-16 22:46:34 Measurements Intervals [facility] Rate: 71 P: 54 TX: 178 QRS: -28 QRSD: 97 T: 33 QT: 425 QTc: 464 Interpretive Statements SINUS RHYTHM BORDERLINE LEFT AXIS DEVIATION [QRS AXIS < -20] BORDERLINE ECG Compared to ECG 02/23/2025 20:21:30 No significant changes Electronically Signed On 08-17-2025 07:44:55 FOOD SERVICE AIDE by Amol Martinez M.D.
[2025-08-16] MEDS: ASPIRIN 81 MG CHEWABLE TABLET 324 MG PO (22:53)
[2025-08-16] MEDS: SODIUM CHLORIDE 0.9% IV 1,000 ML 999 ML IV CONT (22:53)
[2025-08-16] MEDS: METOCLOPRAMIDE HCL INJ 10 MG/2 ML VIAL IV PUSH (22:57)
[2025-08-16 23:06] LABS: Hematocrit 40.5 % (37.0-47.0); Hemoglobin 13.7 g/dL (12.0-15.0); Immature Granulocyte Percent A 0.6 % (0-0.5); Lymphocytes Absolute Auto 4.03 K/mm3 (0.9-3.2); Mean Corpuscular HGB Conc 33.8 g/dl (32-36); Mean Corpuscular Hemoglobin 27.3 pg (26-34); Mean Corpuscular Volume 80.7 fl (80-100); Nucleated Red Blood Cells Absolute Auto 0.000 K/mm3 (0.0-0.012); Nucleated Red Blood Cells Perc 0.0 % (0.0-0.2); Platelet Count Result 288 k/mm3 (150-375); Red Blood Count 5.02 M/mm3 (4.2-5.4); White Blood Count 8.8 K/mm3 (4.5-10.0)
[2025-08-16 23:18] LABS: Alanine Aminotransferase 71 U/L (6-35); Albumin Level 4.2 g/dL (3.5-5.1); Alkaline Phosphatase 62 U/L (38-126); Anion Gap 7 mmol/L (4-12); Aspartate Amino Transferase 37 U/L (14-36); Bilirubin,Total 0.7 mg/dL (0.2-1.3); Blood Urea Nitrogen 15 mg/dL (7-17); Calcium 9.5 mg/dL (8.4-10.2); Carbon Dioxide 26 mmol/L (22-30); Chloride 102 mmol/L (98-107); Estimated CRCL calculation 116 ml/min; Estimated Glomerular Filt Rate > 60; Glucose 106 mg/dL (65-110); Lipase 100 U/L (23-300); Magnesium 2.1 mg/dL (1.6-2.3); Potassium 3.6 mmol/L (3.4-5.0); Sodium 135 mmol/L (137-145); Total Protein 7.3 g/dL (6.3-8.2)
[2025-08-16 23:29] LABS: Troponin I < 0.012 ng/mL (0.000-0.034)
[2025-08-16] MEDS: dexAMETHasone SOD PHOS INJ 10 MG/ML 1 ML VIAL IV PUSH (23:55)
[2025-08-16] MEDS: MAGNESIUM SULF 1 GM/D5W 100 ML 1 GM/100 ML BAG IVPB (23:58)
[2025-08-17] VITALS (7 sets, daily range): BP systolic 101–106; BP diastolic 62–69; PULSE 63–76; RESP 9–20; O2SAT 100
--- NOTE | 2025-08-17 02:01 | ED_ITS ---
HPI - General Adult General Chief complaint: Headache Stated complaint: headache- imatrex, no relief Time Seen by Provider: 08/16/25 21:54 History of Present Illness HPI narrative: Patient is a 40-year-old female who presents emergency department chief complaint of headaches patient reports that her headache today was different than normal and reports she took a dose of Imitrex without relief and reports that she also had some chart discomfort in her chest the patient states that she felt as though she was about to pass out the episode happened Related Data Home Medications ?Medication ?Instructions ?Recorded ?Confirmed ?Last Taken ?Type lisinopril 10 mg tablet 10 mg PO DAILY 10/11/2207/3012/23/23 History multivitamin 1 tablet PO DAILY 12/22/23 1 10/15/24 12/20/23 History omega-3 fatty acids 1,000 mg 1,000 mg PO DAILY 4 08/15/25 Unknown History capsule metoprolol succinate 100 mg mg PO 03/03/25 08/15/25 Un known History tablet,extended release 24 hr Allergies Allergy/AdvReac Type Severity Reaction Status Date / Time sulfamethoxazole (From Allergy Severe Rash Verified 08/15/25 12:08 Bactrim) trimethoprim (From Bactrim) Allergy Severe Rash Verified 08/15/25 12:08 duloxetine Allergy Intermediate Itching Verified 08/15/25 12:08 amlodipine Allergy Unknown peripheral Verified 08/15/25 12:08 edema promethazine Allergy Unknown Skin Verified 08/15/25 12:08 Reaction nirmatrelvir (From Paxlovid) AdvReac Severe cardiac Verified 08/15/25 12:08 ritonavir (From Paxlovid) AdvReac Severe cardiac Verified 08/15/25 12:08 latex AdvReac Itching Verified 08/15/25 12:08 neomycin, polymyxin and AdvReac Intermediate Other Uncoded 08/15/25 12:08 hydrocortisone otic drops Review of Systems 2 Review of Systems: A 10 system review of systems was completed on the patient and is negative except for what is stated in the HPI. Nursing and ancillary documentation was reviewed. [facility] Past Medical History Medical History Perforation of left tympanic membrane Endometriosis seen on rachel/bso path 2023 Otitis externa of left ear Otorrhea, left ear Fungal otitis externa Chest wall pain Otorrhea, left ear Nasal congestion Prediabetes 3.9.22 hgba1c 5.9 COVID Bruxism Otalgia of both ears Ear itching IBS (irritable bowel syndrome) Otitis externa of right ear Esophageal reflux Benign essential hypertension Acute gastritis Fibromyalgia PVC (premature ventricular contraction) Panic disorder without agoraphobia Surgical History Surgical History S/P [facility] 3.27.24 History of placement of ear tubes H/O wisdom tooth extraction H/O dilation and curettage H/O: section Hx of cholecystectomy Family History Family History Other Cerebrovascular accident Diabetes mellitus Family history of malignant neoplasm Hypertension Social History Social History Smoking packs per day: 1 Smoking cigarettes per day: 20.0 Years smoked: 5 Smoking pack-years: 5.00 Smoking status: Never smoker Alcohol intake: never Alcohol use details: occasionally Substance use: never Substance use type: marijuana Other substance usage details: EDIBLES Do You Feel Safe in your Home?: Yes Lack of Transportation: No Lack of Food: Never True Current Housing: I Have Housing Concerned About Future Housing: No Difficulty Paying Gas/Electric Bills: No Difficulty Paying for Meds: No Currently Unemployed: No Education: Bachelor's Degree Difficulty w/ Childcare or Family Care: No Living arrangements: with family Spiritual care concerns: No Exam 2 Narrative: GENERAL: Well-appearing, well-nourished, and in no acute distress. HEAD: Normocephalic, atraumatic. EYES: PERRLA and EOMI. ENT: Nares clear, no rhinorrhea or epistaxis. Mucous membranes moist. NECK: Supple. CHEST: Clear to auscultation. No respiratory distress. HEART: Regular rate and rhythm. No murmur heard. Normal peripheral pulses. ABDOMEN: Soft, nontender, nondistended, normal active bowel sounds. EXTREMITIES: Normal range of motion. No edema. SKIN: Warm, dry, no rash. NEURO: No focal deficits. Alert and oriented x3. PSYCH: Normal mood and affect. Course Vital Signs Vital signs: Vital Signs Temperature 36.5 C 08/16/25 17:58 Pulse Rate 79 08/16/25 17:58 Respiratory Rate 18 08/16/25 17:58 Blood Pressure 132/71 08/16/25 17:58 Pulse Oximetry 98 08/16/25 17:58 Temperature 36.5 C 08/16/25 17:58 Pulse Rate 72 08/17/25 00:16 Respiratory Rate 20 08/17/25 00:16 Blood Pressure 101/64 08/17/25 00:16 Pulse Oximetry 96 08/16/25 23:02 Medical Decision Making MDM Narrative Medical decision making narrative: Partial diagnosis includes migraine headache ACS, atypical chest pain, Patient was treated with migraine cocktail The patient did have relief and is currently sleeping comfortably CT head was obtained and this was a different type of headache than the patient normally feels The patient was evaluated for possible ACS EKG showed no acute ischemic changes initial troponin was negative electrolytes showed normal bilirubin AST ALT were slightly elevated the patient is not having any right upper quadrant abdominal pain and has history of elevated liver enzymes CT head showed no acute abnormality chest x-ray showed no focal infiltrates the patient is feeling much better and resting comfortably and will be discharged home follow up with her primary care provider Vital Signs Vital Signs: Vital Signs Temperature 36.5 C 08/16/25 17:58 Pulse Rate 79 08/16/25 17:58 Respiratory Rate 18 08/16/25 17:58 Blood Pressure 132/71 08/16/25 17:58 Pulse Oximetry 98 08/16/25 17:58 Temperature 36.5 C 08/16/25 17:58 Pulse Rate 72 08/17/25 00:16 Respiratory Rate 20 08/17/25 00:16 Blood Pressure 101/64 08/17/25 00:16 Pulse Oximetry 96 08/16/25 23:02 Lab Data 08/16/25 23:00 08/16/25 23:00 Labs: Lab Results 08/16/25 Range/Units 23:00 WBC 8.8 (4.5-10.0) K/mm3 RBC 5.02 (4.2-5.4) M/mm3 Hgb 13.7 (12.0-15.0) g/dL Hct 40.5 (37.0-47.0) % MCV 80.7 (80-100) fl MCH 27.3 (26-34) pg MCHC 33.8 (32-36) g/dl RDW 13.5 (11.5-14.5) % Plt Count 288 (150-375) k/mm3 MPV 10.2 (7.4-10.4) fl Immature Gran % (Auto) 0.6 H (0-0.5) % Neut % (Auto) 39.8 L (45.5-73.1) % Lymph % (Auto) 45.7 H (18.3-44.2) % [place] % (Auto) 9.4 H (2.6-8.5) % Eos % (Auto) 3.5 (0-4.4) % Baso % (Auto) 1.0 (0.2-1.2) % Lymph # (Auto) 4.03 H (0.9-3.2) K/mm3 [place] # (Auto) 0.8 H (0.1-0.6) K/mm3 Eos # (Auto) 0.3 (0-0.3) K/mm3 Baso # (Auto) 0.1 (0.0-0.1) K/mm3 Abs Immat Gran (auto) 0.05 H (0.00-0.031) K/mm3 Absolute Neuts (auto) 3.5 (1.3-6.7) K/mm3 Absolute Nucleated RBC 0.000 (0.0-0.012) K/mm3 Nucleated RBC % 0.0 (0.0-0.2) % Sodium 135 L (137-145) mmol/L Potassium 3.6 (3.4-5.0) mmol/L Chloride 102 (98-107) mmol/L Carbon Dioxide 26 (22-30) mmol/L Anion Gap 7 (4-12) mmol/L BUN 15 (7-17) mg/dL Creatinine 0.73 (0.7-1.0) mg/dL Estim Creat Clear Calc 116 ml/min Estimated GFR > 60 (59 - ) Glucose 106 (65-110) mg/dL Calcium 9.5 (8.4-10.2) mg/dL Magnesium 2.1 (1.6-2.3) mg/dL Total Bilirubin 0.7 (0.2-1.3) mg/dL AST 37 H (14-36) U/L ALT 71 H (6-35) U/L Alkaline Phosphatase 62 (38-126) U/L Troponin I < 0.012 (0.000-0.034) ng/mL Total Protein 7.3 (6.3-8.2) g/dL Albumin 4.2 (3.5-5.1) g/dL Lipase 100 (23-300) U/L Discharge Plan Discharge Clinical Impression: Headache, Atypical chest pain Patient Disposition: Home Condition: Stable Instructions: Antibiotic Form, Chest Pain (ED), Acute Headache (ED) Additional Instructions: Please follow-up your primary care provider if her symptoms worsen please return to the emergency department Patient Language: Italian Prescriptions: No Action lisinopril 10 mg tablet 10 mg PO DAILY Rx Instructions: HAS NOT BEEN TAKING PAST COUPLE WEEK BP LOW ciprofloxacin-dexamethasone 0.3-0.1 % drops,suspension 4 drp LEFT EAR Q12H 7 Days Qty: 7.5 0RF clobetasol 0.05 % solution See Rx Instructions .ROUTE .COMPLEX Qty: 50 0RF Dose Instruction: APPLY TOPICALLY TO THE AFFECTED AREA DAILY Rx Instructions: APPLY TOPICALLY TO THE AFFECTED AREA DAILY metoprolol succinate 100 mg tablet extended release 24 hr PO buspirone 15 mg tablet 15 mg PO BID Qty: 90 1RF gabapentin 300 mg capsule See Rx Instructions PO BID Qty: 150 3RF Rx Instructions: Take 900 mg (3 capsules) in the am and 600 mg (2 capsules) in the evening. cyclobenzaprine 10 mg tablet 10 mg PO TID Qty: 90 0RF multivitamin Tablet 1 tablet PO DAILY omega-3 fatty acids 1,000 mg capsule 1,000 mg PO DAILY hyoscyamine sulfate 0.125 mg tablet See Rx Instructions .ROUTE .COMPLEX Qty: 30 5RF Dose Instruction: TAKE 1 TABLET BY MOUTH FOUR TIMES DAILY Rx Instructions: TAKE 1 TABLET BY MOUTH FOUR TIMES DAILY alprazolam 0.25 mg tablet 0.25 mg PO BID PRN (Reason: anxiety) Qty: 60 5RF sumatriptan succinate 25 mg tablet See Rx Instructions PO .COMPLEX Qty: 14 5RF Rx Instructions: take 1 tab at onset of headache; if no relief may repeat 1 tab after at least 2 hrs; max = 4 tabs/24 hr PO triamterene-hydrochlorothiazid 37.5-25 mg tablet 1 tablet PO DAILY Qty: 90 1RF metformin 500 mg tablet extended release 24 hr 500 mg PO BID Qty: 180 1RF metoprolol succinate 50 mg tablet extended release 24 hr 150 mg PO DAILY Qty: 270 1RF duloxetine 60 mg capsule,delayed release(DR/EC) 60 mg PO DAILY Qty: 90 1RF pantoprazole 40 mg tablet,delayed release (DR/EC) See Rx Instructions .ROUTE .COMPLEX Qty: 180 1RF Dose Instruction: TAKE 1 TABLET BY MOUTH TWICE DAILY Rx Instructions: TAKE 1 TABLET BY MOUTH TWICE DAILY levofloxacin 750 mg tablet 750 mg PO DAILY Qty: 7 0RF cholecalciferol (vitamin D3) 1,250 mcg (50,000 unit) capsule 1,250 mcg PO WEEKLY Qty: 8 0RF Follow-up/Referrals: Deedee Long MD [Primary Care Provider, Family Practice]
--- OUTSIDE RECORDS SUMMARY | 2025-08-17 04:07 | XMS_ITS | Encounter Summary ---
Author Organization [facility] Address 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 Gender Identity Not on file [...] PM CDT Narrative 06/20/2008 2:56 PM CDT [id number] [place], [place] [address] Admit Date: 06/20/2008 SUMMER ABRAMS Sex: F Admit Prov: ER, AUTHORIZED P Date: 1985 Primary Care Prov: CMRN: [id number] Room: ER-A N: [id number] IMAGING SERVICES Ordering Prov: N/A Accession Number: [id number] Interpretation CT of the abdomen and pelvis [...] Procedure Note Tennille Ervin MD - 06/20/2008 [address] [place], [place] [address] Admit Date: 06/20/2008 SUMMER ABRAMS Sex: F Admit Prov: ER, AUTHORIZED P Date: 1985 Primary Care Prov: CMRN: [id number] Room: -A N: [id number] IMAGING SERVICES Ordering Prov: N/A Interpretation CT [...] SPECIFIC GRAVITY UA 1.015 1.001 - 1.030 [facility] GLUCOSE UA Negative Negative [facility] COLOR UA Pale [facility] NITRITE UA Negative Negative [facility] BILIRUBIN UA Negative Negative [facility] PH UA 6.0 5.0 - 8.0 [facility] KETONES UA Negative Negative [facility] CLARITY UA Clear [facility] PROTEIN UA Negative Negative [facility] BLOOD UA 1+(A) Negative [facility] LEUKOCYTE ESTERASE UA Trace(A) Negative [facility] UROBILINOGEN UA Normal <=1 mg/dL [facility] Urine specimen (specimen) 06/20/2008 12:59 PM CDT 06/20/2008 12:59 PM CDT us Authorized P Er POINT OF CARE TESTING Final Resu lt Performing Organization Address City/[facility] Co de Phone Number INTERFACE SYSTEM Refer to clinic/hospital department [facility] CLIA# [id number] [address] [place] [address] * POC , URINE (06/20/2008 12:59 PM CDT) , URINE POC Negative Negative [facility] SPECIFIC GRAVITY UA 1.015 1.001 - 1.035 [facility] Urine specimen (specimen) 06/20/2008 12:59 PM CDT 06/20/2008 12:59 PM CDT us Authorized P Er POINT OF CARE TESTING Final Resu lt Performing Organization Address [facility] de Phone Number INTERFACE SYSTEM Refer to clinic/hospital department [facility] CLIA# [id number] [address] [place] [address] documented in this encounter Visit Diagnoses Not on filedocumented in this encounter Care Teams Medical Consultant Relationship Specialty Start Date End Date Dionte Vega MD [address] [place] [address] PCP - General Family Practice 05/25/10 documented as of this encounter
--- OUTSIDE RECORDS SUMMARY | 2025-08-17 04:07 | XMS_ITS | Clinical Summary ---
Author Organization [facility] [address] Address [address] [place] [address] Care Team Providers Care Marketing Technologist Name Role Phone Deedee Long MD Primary [...] Morbid obesity with BMI of 45.0-49.9, adult ([facility]) 12/30/2017 Lipid screening 12/30/2017 QT prolongation 12/30/2017 [...] Karmen Depression Father Lj Peraza Diabetes Father jL Peraza Drug abuse Father Lj Peraza Heart disease Father Lj Peraza Hypertension Father Lj Peraza Mental illness Father Lj Peraza Cancer Maternal Grandfather Yan Morriscsi Clotting disorder Maternal Grandfather Yan Guan si Heart attack Maternal Grandfather Yan Yamilakacsi Hypertension Maternal Grandfather Yan Yamilakacsi Anemia Maternal Grandmother Floresita Yamilbilli Diabetes Maternal Grandmother Floresita Yamilpietercsi Obesity Maternal Grandmother Floresita Yamilpieterdona Vision loss Maternal Grandmother Floresita Yamilpietercsmarcelo [...] on file 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
--- OUTSIDE RECORDS SUMMARY | 2025-08-17 04:08 | XMS_ITS | Patient Health Record ---
Author Organization [facility] Address [address] [place] [address] Care Team Providers Care Sprinkler Installer Name Role Phone Amol Long MD Primary Care Provider Eliza Hope Unavailable [phone] Gilda Ren Unavailable [phone] Allergies Allergen (clinical drug ingredient) Drug/Non Drug [...] End Date Status Metoprolol Succinate ER 50 M G Tablet Extended Release 24 Hour Oral 11/21/2023 Active Oseltamivir Phosphate 75 MG Capsule Oral 11/21/2023 Active Eletriptan Hydrobromide 20 M G Tablet Oral 11/21/2023 Active Pantoprazole Sodium 40 MG Tablet Delayed Release Oral 11/21/2023 Activ e Mirtazapine 30 MG Tablet TAKE 1 TABLET B Y MOUTH DAILY; Duration: 90 Active Clobetasol Propionate 0.05 % Solution External 11/21/2023 Active Mupirocin 2% Ointment External 11/21/2023 Active Estradiol 1 MG Tablet 1 tablet Orally On ce a day Active Triamterene-HCTZ 37.5-25 MG Tablet Oral 11/21/2023 Active Cyclobenzaprine HCl 10 MG Tablet 1 tablet at bedtime as needed Orally Once a day Active Savella 50 MG Tablet Oral 11/21/2023 Active metFORMIN HCl ER 500 MG Tablet Extended Release 24 Hour Oral 11/21/2023 Active Lisinopril 10 MG Tablet Oral 11/21/2023 Active Metoprolol Succinate ER 100 MG Tablet Extended Release 24 Hour Oral 11/21/2023 Active busPIRone HCl 15 MG Tablet Oral 11/21/2023 Active Ibuprofen 800 MG Tablet Oral 11/21/2023 Active Ondansetron 8 MG Tablet Disintegrating Oral 11/21/2023 Active Social History Sex Assigned At : Social History Observation Description Sex Assigned At Female Social History Additional Details Category Social Info Options Details Migrated Social History Migrated Social History Alcohol Intake: Occasional 11/21/2023,Tobacco Years: Former smoker 08/29/2023 Problems Problem Type SNOMED Code ICD Code Onset Dates Problem Status W/U Status Risk Notes Problem Severe recurrent major depression without psychotic features (96080597) Major depressive disorder, recurrent severe without psychotic features (F33.2) Active confirmed Problem Recurrent major depressive episodes, moderate (629803902) Recurrent major depressive episodes, moderate (F33.1) Active confirmed Encounters Encounter Location Date Provider Diagnosis [facility] [address] [address] 09/27/2024 Gilda Ren Major depressive disorder, recurrent severe without psychotic features F33.2 [facility] [address] [place] [address] 09/27/2024 Eliza Bustillo Assessments Encounter Date Diagnosis (ICD Code) Assessment Notes Treatment Notes Treatment Clinical Notes Section Notes 09/27/2024 Major depressive disorder, recurrent severe without [...] Insured Coverage Start Date Coverage End Date [employer] [address] [place] [address] [id number] SUMMER PHILLIPS Self - patient is the insured Medical (General) History Medical History History ICD Code Problems: Generalized anxiety disorder Recurrent major depression in partial re mission Severe obesity , Surgical History Surgery Date(Month/Year) hysterectomy
--- OUTSIDE RECORDS SUMMARY | 2025-08-17 04:10 | XMS_ITS | Encounter Summary ---
Author Organization [facility] Address [address] [place] [address] Care Team Providers Care Donation Worker Name Role Phone Kevin Vega MD Primary Care Provider [phone] Deedee Long MD Primary Care Provider + Encounter Details Date Type Department Care Team (Late st Contact Info) Description 03/26/2018 Orders Only [facility] Health Information Management [address] [place] [id number] Scanning, Provider Social History Tobacco Use Types Packs/Day Years Used Date Smoking Tobacco: Never Smokeless Tobacco: Never Alcohol Use Standard Drinks/Week Comments No 0 (1 standard drink = 0.6 oz pur e alcohol) Comments Unknown Sex and Gender Information Value Date Recorded Sex Assigned at Not on file 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
--- OUTSIDE RECORDS SUMMARY | 2025-08-17 04:10 | XMS_ITS | Data Portability ---
Author Organization [facility] Address [address] [place] [address] [place] [address] Care Team Providers Care Conference Interpreter Name Role Phone NIKKIDANISHAJIHAN Primary Care Provider Assessment Encounter Date Assessment Date Assessment LastModified by Organization Details LastModified Time 12/04/2023 12/04/[place] [id number] [email or web address] Not availabl e 12/11/2023 12:23:58 Plan of Treatment Reminders Order Date Submit Date Provider Last Modified By Organization Details Last Modified Time Details Appointments None recorded. Lab urinalysis, dipstick 2023 024 [email or web address] [address], [address], [place], [address], 17:32:30 test, urine 2023 024 [email or web address] [address] [facility], [address], [place], [address], 17:32:29 culture, urine 2023 024 [facility] (Lab), [address], [place], [address], 14:32:16 Referral None recorded. Procedures None recorded. Surgeries total hysterectom y, laparoscopi c, with bilateral salpingo-oo phorectomy (SURG) 2023 024 [email or web address] 1 [facility], [address] [address], [place], [address], 09:53:37 Imaging None recorded. Medication Orders tramadol 50 mg tablet 2023 024 [id number], [address] [facility], [place], [place], [id number], 17:49:54 ketorolac 60 mg/2 mL intramuscul ar solution 2023 024 [email or web address] 1 [facility], [facility] [place], [address], 4 17:20:00 ondansetron 8 mg disintegrat ing tablet 2023 024 [facility], [address] [place] [address], [address], 16:33:48 ketorolac 60 mg/2 mL intramuscul ar [...] t Abnor mal: No Resul ting Lab: [facility] [address] [facility] [address] Tel: CULTU RE ----- ----- ----- --- Organ ism(s ) consi stent with uroge nital or skin joey . Repea t cultu re if sympt oms indic ate. Not Available [facility] (Lab) [address], [place], [address], 12/10/2023 14:32:15 12/08/19 24 12/08/2023 pregn filippo test, urine HCG negati ve Not Available [facility] [address], [place], [address], 12/08/2023 17:31:59 12/08/19 24 12/08/2023 urina lysis , dipst ick Leukocytes normal Not Available [facility] [address], [place], [address], 12/08/2023 17:28:58 12/08/19 24 12/08/2023 urina lysis , dipst ick Nitrite normal Not Available [facility] [address], [place], [address], 12/08/2023 17:28:58 12/08/19 24 12/08/2023 urina lysis , dipst ick Urobilinogen normal Not Available [facility] deju[address], [place], [address], 12/08/2023 17:28:58 12/08/19 24 12/08/2023 urina lysis , dipst ick Protein trace Not Available [facility] [address], [place], [address], 12/08/2023 17:28:58 12/08/19 24 12/08/2023 urina lysis , dipst ick pH 8 Not Available [facility] [address], [place], [address], 12/08/2023 17:28:58 12/08/19 24 12/08/2023 urina lysis , dipst ick Blood +++ Not Available [facility] [address], [place], [address], 12/08/2023 17:28:58 12/08/19 24 12/08/2023 urina lysis , dipst ick Specific Wheeler 1.020 Not Available [facility] [address], [place], [address], 12/08/2023 17:28:58 12/08/19 24 12/08/2023 urina lysis , dipst ick Ketone normal Not Available [facility] [address], [place], [address], 12/08/2023 17:28:58 12/08/19 24 12/08/2023 urina lysis , dipst ick Bilirubin normal Not Available [facility] nate [address], [place], [address], 12/08/2023 17:28:58 12/08/19 24 12/08/2023 urina lysis , dipst ick Glucose normal Not Available [facility] [address], [place], [address], 12/08/2023 17:28:58 12/08/19 24 12/08/2023 urina lysis , dipst ick Appearance normal Not Available [facility] liana [address], [place], [address], 12/08/2023 17:28:58 12/08/19 24 12/08/2023 urina lysis , dipst ick Color normal Not Available [facility] [address], [place], [address], 12/08/2023 17:28:58 01/01/20 24 12/30/2023 CT, abdom en + pelvi s, w/ contr ast No observ ation record ed. [address], [place], [address], 01/01/2024 20:51:48 01/02/20 24 01/02/2024 CT, abdom en + pelvi s, w/ contr ast No observ ation record ed. [address], [place], [address], 01/03/2024 22:27:03 02/04/20 24 02/04/2024 MAMMO , diagn ostic , digit al, bilat eral No observ ation record ed. RODNEY [facility] [address], [place], [address], 02/09/2024 11:27:44 01/26/20 25 09/24/2024 MAMMO , diagn ostic , digit al, bilat eral No observ ation record ed. [email or web address] [facility] [address], [place], [address], 01/31/2025 09:47:25 Result Notes None recorded. Problems Name Problem SNOMED Code Status Onset Date Resolution Date Notes Provider Name and Address Organization Details Recorded Time Abscess of vulva 28984010 Completed 201004/27/2021 BOIL VULVA LABIA;Pr actice ID: 0001 Martha calvert [facility] 15:32:24 Carbuncl e of buttock Completed 201004/27/2021 BOIL BUTTOCK ANUS;Pra ctice ID: 0001 Martha calvert [facility] 15:32:05 Adult health examinat ion Completed 201104/27/2021 Routine Medical Exam;Rec orded Elsewher e: No Locat ion: [facility] S ource: EHR Automatic Packer Operator mara: N Practi ce ID: 0001 Gera lable Time: 02:30:00 PM Martha calvert [facility] 15:29:42 Pregnanc y test negative [id number] Completed 201104/27/2021 Pregnanc y examinat ion or test, negative result;R ecorded Elsewher e: No [facility]: E[facility] Automatic Packer Operator mara: N Practi ce ID: 0001 Gera lable Time: 03:00:00 PM Martha calvert [facility] 1 15:29:31 Screenin g for malignan t neoplasm of cervix Completed 201104/27/2021 Screenin g for malignan t neoplasm s of the cervix;R ecorded Elsewher e: No Locat ion: [facility]: N Practi ce ID: 0001 Gera lable Time: 03:00:00 PM Martha calvert [facility] 15:28:37 Microsco pic hematuri a [id number] Completed 201104/27/2021 MICROSCO PIC HEMATURI A;Record ed Elsewher e: No Locat ion: [facility] S ource: [facility] mara: N Practi ce ID: 0001 Gera lable Time: 03:00:00 PM Martha calvert [facility] 15:28:41 Dysfunct ional uterine bleeding Completed 201104/27/2021 Other disorder s of menstrua tion and other abnormal bleeding from female genital tract;Re corded Elsewher e: No Locat ion: [facility] S ource: EHR Automatic Packer Operator mara: N Practi ce ID: 0001 Gera lable Time: 09:15:00 AM Martha calvert [facility] 1 15:28:39 Pain of breast [id number] Completed 201104/27/2021 Mastodyn ia;Recor ded Elsewher e: No Locat ion: [facility] S ource: EHR Automatic Packer Operator mara: N Practi ce ID: 0001 Gera lable Time: 02:45:00 PM Martha calvert [facility] 15:32:13 Polyp of corpus uteri [id number] Completed 201104/27/2021 Polyp of corpus uteri;Re corded Elsewher e: No Locat ion: [facility] S ource: EHR Automatic Packer Operator mara: Y Practi ce ID: 0001 Gera lable Time: 02:15:00 PM Martha calvert, [facility] 15:27:48 Speciali zed medical examinat ion Completed 201204/27/2021 Gynecolo gical Examinat ion;Robert rded Elsewher e: No Locat ion: [facility] S ource: EHR Automatic Packer Operator mara: N Practi ce ID: 0001 Gera lable Time: 01:30:00 PM Martha Darnell calvert, [facility] 15:32:09 Human papillom a virus infectio n [id number] Completed 201204/27/2021 HUMAN PAPILLOM AVIRUS IN CONDITIO NS CLASSIFI ED ELSEWHER E AND OF UNSPECIF IED SITE;Rec orded Elsewher e: No Locat ion: [facility] S ource: EHR Automatic Packer Operator mara: N Practi ce ID: 0001 Gera lable Time: 03:30:00 PM Martha Sahnigavin calvert, [facility] 15:29:20 Atypical squamous cells of undeterm ined signific ance on cervical Papanico laou smear [id number] Completed 201204/27/2021 Papanico laou smear of cervix with atypical squamous cells of undeterm ined signific ance (ASC-US) ;Recorde d Elsewher e: No Locat ion: [facility] S ource: EHR Automatic Packer Operator mara: N Practi ce ID: 0001 Gera lable Time: 03:30:00 PM Martha Darnell calvert [facility] 15:31:55 Atypical squamous cells on cervical Papanico laou smear cannot exclude high grade squamous intraepi thelial lesion 423766114 Completed 201204/27/2021 Papanico laou smear of cervix with atypical squamous cannot exclude high grade squamous intraepi thelial lesion (ASC-H); Recorded Elsewher e: No Locat ion: [facility] S ource: [facility] mara: Zander Andresti ce ID: 0001 Gera lable Time: 03:30:00 PM Martha Patrick [facility] 15:31:56 Carcinom a in situ of uterine cervix [id number] Completed 201304/27/2021 Carcinom a in situ of cervix uteri;Re corded Elsewher e: No Locat ion: [facility] S ource: [facility] mara: Zander Andresti ce ID: 0001 Gera lable Time: 05:15:00 PM Martha Patrick [facility] 15:32:51 Uterine leiomyom a [id number] Completed 201304/27/2021 Leiomyom a of uterus, unspecif ied;Robert rded Elsewher e: No Locat ion: [facility] S ource: [facility] mara: Zander Andresti ce ID: 0001 Gera lable Time: 04:45:00 PM Martha Partick [facility] 15:32:54 Cyst of ovary [id number] Completed 201304/27/2021 Ovarian cyst;Rec orded Elsewher e: No Locat ion: [facility] S ource: [facility] mara: Zander Andresti ce ID: 0001 Gera lable Time: 05:15:00 PM Martha Patrick [facility] 15:32:38 Female genital organ symptoms [id number] Completed 201304/27/2021 Unspecif ied symptom associat ed with female genital organs;R ecorded Elsewher e: No Locat ion: [facility] S ource: EHR Automatic Packer Operator mara: N Practi ce ID: 0001 Gera lable Time: 04:45:00 PM Martha calvert, [facility] 15:28:45 Neoplasm of uncertai n behavior of ovary [id number] Completed 201304/27/2021 Neoplasm of uncertai n behavior of ovary;Re corded Elsewher e: No [facility] S [facility]: EHR Automatic Packer Operator mara: N Dmitryti ce ID: 0001 Gera lable Time: 04:30:00 PM Martha calvert, [facility] 15:32:52 Female infertil ity associat ed with anovulat ion [id number] Completed 201304/27/2021 Infertil ity, female, associat ed with anovulat ion;Robert rded Elsewher e: No [facility]at [facility] S ource: EHR Automatic Packer Operator mara: N Dmitryti ce ID: 0001 Gera lable Time: 04:30:00 PM Martha calvert, [facility] 15:28:58 Female infertil ity [id number] Completed 201304/27/2021 Infertil ity, female, of unspecif ied origin;P ractice ID: 0001 Martha calvert, [facility] 15:32:20 Dysuria 32463435 Completed 201304/27/2021 Dysuria; Practice ID: 0001 Martha calvert, [facility] 15:32:04 Vaginiti s and vulvovag initis Completed 201404/27/2021 Vaginiti s;Record ed Elsewher e: No [facility] S ource: EHR Automatic Packer Operator mara: N Practi ce ID: 0001 Gera lable Time: 10:15:00 AM Martha calvert [facility] 15:28:43 Blood in urine [id number] Completed 201404/27/2021 HEMATURI A NOS;Robert rded Elsewher e: No Locat ion: [facility] S ource: EHR Automatic Packer Operator mara: N Dmitryti ce ID: 0001 Gera lable Time: 10:15:00 AM Martha calvert, [facility] 15:29:57 Leukorrh ea [id number] Completed 201404/27/2021 Leukorrh ea, not specifie d as infectiv e;Record ed Elsewher e: No Locat ion: [facility] S ource: EHR Automatic Packer Operator mara: N Dmitryti ce ID: 0001 Gera lable Time: 10:15:00 AM Martha calvert, [facility] 15:29:03 Morbid obesity 511828182 Completed 201404/27/2021 Obesity, Morbid;R ecorded Elsewher e: No Locat ion: [facility] S ource: EHR Automatic Packer Operator mara: N Dmitryti ce ID: 0001 Gera lable Time: 05:00:00 PM Martha calvert [facility] 15:29:06 Primigra raya [id number] Completed 201404/27/2021 Supervis ion of normal first pregnanc y;Record ed Elsewher e: No Locat ion: [facility] S ource: EHR Automatic Packer Operator mara: N Practi ce ID: 0001 Gera lable Time: 05:00:00 PM Martha calvert [facility] 15:28:13 Speciali zed medical examinat ion Completed 201404/27/2021 Other specifie d chlamydi al diseases ;Recorde d Elsewher e: No Locat ion: [facility] S ource: EHR Automatic Packer Operator mara: N Dmitryti ce ID: 0001 Gera lable Time: 05:00:00 PM Martha calvert [facility] 15:32:11 Benign essentia l hyperten geronimo [id number] Completed 201404/27/2021 Hyperten geronimo, Benign;R ecorded Elsewher e: No Locat ion: [facility] S ource: [facility] mara: N Dmitryti ce ID: 0001 Gera lable Time: 05:00:00 PM Martha calvert [facility] 15:27:56 Venereal disease screenin g Completed 201404/27/2021 Screenin g examinat ion for venereal disease; Recorded Elsewher e: No Locat ion: [facility] S ource: [facility] mara: N Franklin ce ID: 0001 Gera lable Time: 05:00:00 PM Martha calvert [facility] 15:28:35 Pregnanc y test positive [id number] Completed 201404/27/2021 Pregnanc y examinat ion or test, positive result;R ecorded Elsewher e: No Locat ion: [facility] S ource: EHR Automatic Packer Operator mara: Zander Reid ce ID: 0001 Gera lable Time: 05:00:00 PM Martha calvert [facility] 15:29:29 Abdomina l pain [id number] Completed 201404/27/2021 Abdomina l pain;Rec orded Elsewher e: No Locat ion: [facility] S ource: [facility] mara: N Dmitryti ce ID: 0001 Gera lable Time: 10:15:00 AM Martha calvert [facility] 15:28:56 Spotting per vagina in pregnanc y [id number] Completed 201404/27/2021 SPOTTING -ANTEPAR STEFANO;Robert rded Elsewher e: No Locat ion: [facility] S ource: EHR Automatic Packer Operator mara: N Dmitryti ce ID: 0001 Gera lable Time: 04:00:00 PM Martha calvert, [facility] 15:29:47 Threaten ed prematur e labor - not delivere d [id number] Completed 201404/27/2021 THRT LIA LABOR-AN TEPART;P ractice ID: 0001 Martha calvert, [facility] 15:28:53 Mild hypereme sis-not delivere d [id number] Completed 201404/27/2021 HYPEREME SIS-ANTE PAR Mild;Pra ctice ID: 0001 Martha calvert, [facility] 15:28:48 Tumor of uterine body complica ting antenata l care, baby not yet delivere d [id number] Completed 201404/27/2021 Tumors of body of uterus, antepart um conditio n or complica tion;Rec orded Elsewher e: No Locat ion: [facility] S ource: EHR Automatic Packer Operator mara: N Franklin ce ID: 0001 Gera lable Time: 02:15:00 PM Martha calvert, [facility] 15:29:40 Epigastr ic pain [id number] Completed 201404/27/2021 ABDMNAL PAIN EPIGASTR IC;Pract ice ID: 0001 Martha calvert, [facility] 15:32:39 Benign essentia l hyperten geronimo complica ting pregnanc y, childbir th and the puerperi um - delivere d [id number] Completed 201404/27/2021 Benign essentia l hyperten geronimo with delivery ;Recorde d Elsewher e: No Locat ion: [facility] S ource: EHR Automatic Packer Operator mara: N Practi ce ID: 0001 Gera lable Time: 03:30:00 PM Matrha calvert [facility] 15:28:46 Swelling of limb [id number] Completed 201404/27/2021 SWELLING OF LIMB;Pra ctice ID: 0001 Martha calvert [facility] 15:32:41 Headache [id number] Completed 201404/27/2021 HEADACHE ;Practic e ID: 0001 Martha calvert, [facility] 15:29:32 Head and neck swelling Completed 201404/27/2021 Swelling of face;Rec orded Elsewher e: No Locat ion: [facility] S ource: EHR Automatic Packer Operator mara: N Practi ce ID: 0001 Gera lable Time: 10:15:00 AM Martha calvert [facility] 15:32:07 Gestatio n period, 30 weeks [id number] Completed 201404/27/2021 30 weeks gestatio n of pregnanc y;Record ed Elsewher e: No [facility] S ource: EHR Automatic Packer Operator mara: N Dmitryti ce ID: 0001 Gera lable Time: 12:00:00 PM Martha calvert [facility] 15:32:26 Right lower quadrant pain [id number] Completed 201404/27/2021 Right lower quadrant pain;Rec orded Elsewher e: No Locat ion: Nanda e [facility] S ource: EHR Automatic Packer Operator mara: N Practi ce ID: 0001 Gera lable Time: 12:00:00 PM Martha calvert [facility] 15:29:51 Acute vaginiti s [id number] Completed 201404/27/2021 Acute vaginiti s;Record ed Elsewher e: No Locat ion: [facility] S ource: EHR Automatic Packer Operator mara: N Practi ce ID: 0001 Gera lable Time: 05:00:00 PM Martha calvert, [facility] 1 15:29:28 Pre-exis ting hyperten geronimo in obstetri c context [id number] Completed 201404/27/2021 Unsp pre-exis ting htn comp pregnanc y, third trimeste r;Record ed Elsewher e: No [facility] S ource: EHR Automatic Packer Operator mara: N Practi ce ID: 0001 Gera lable Time: 04:45:00 PM Martha calvert, [facility] 1 15:32:44 Blood leukocyt e number above referenc e range [id number] Completed 201404/27/2021 Elevated white blood cell count, unspecif ied;Robert rded Elsewher e: No [facility] S ource: EHR Automatic Packer Operator mara: N Dmitryti ce ID: 0001 Gera lable Time: 05:15:00 PM Martha calvert, [facility] 1 15:30:10 Gestatio n period, 35 weeks 59161913 Completed 201404/27/2021 35 weeks gestatio n of pregnanc y;Record ed Elsewher e: No [facility]: EHR Automatic Packer Operator mara: N Practi ce ID: 0001 Gera lable Time: 05:00:00 PM Martha calvert, [facility] 1 15:32:42 Pregnanc y, childbir th and puerperi um finding Completed 201404/27/2021 Encounte r for supervis ion of normal first pregnanc y, third trimeste r;Record ed Elsewher e: No Locat ion: Denisselorie nate [facility] S ource: EHR Automatic Packer Operator mara: N Practi ce ID: 0001 Gera lable Time: 05:30:00 PM Martha calvert, [facility] 15:30:03 Gestatio n period, 37 weeks [id number] Completed 201404/27/2021 37 weeks gestatio n of pregnanc y;Record ed Elsewher e: No Locat ion: Nanda sullivan [facility] S ource: EHR Automatic Packer Operator mara: N Practi ce ID: 0001 Gera lable Time: 05:00:00 PM Martha calvert, [facility] 15:31:52 Gestatio n period, 38 weeks [id number] Completed 201404/27/2021 38 weeks gestatio n of pregnanc y;Record ed Elsewher e: No Locat ion: Nanda sullivan [facility] S ource: EHR Automatic Packer Operator mara: N Practi ce ID: 0001 Gera lable Time: 05:00:00 PM Martha calvert, [facility] 15:28:20 Lacerati on of female perineum Completed 201404/27/2021 Second degree perineal lacerati on during delivery ;Practic e ID: 0001 Martha calvert, [facility] 15:29:21 Hyperten geronimo in the obstetri c context Completed 201504/27/2021 Pre-exis ting essentia l htn comp pregnanc y, unsp trimeste r;Practi ce ID: 0001 Martha calvert, [facility] 15:29:12 HELLP syndrome [id number] Completed 201504/27/2021 Severe pre-ecla mpsia w/ hemolysi s, elevated liver enzymes and low platelet count;Re corded Elsewher e: No [facility]at ion: [facility] S ource: EHR Automatic Packer Operator mara: N Practi ce ID: 0001 Gera lable Time: 05:30:00 PM Martha calvert [facility] 1 15:32:56 Pregnanc y-induce d hyperten geronimo Completed 201504/27/2021 Gestatio nal hyperten geronimo w/o signific ant proteinu gloria;Robert rded Elsewher e: No Locat ion: Nanda nate [facility] S ource: EHR Automatic Packer Operator mara: N Franklin ce ID: 0001 Gera lable Time: 06:00:00 PM Martha calvert, [facility] 15:29:13 Hyperten geronimo in the obstetri c context Completed 201504/27/2021 Pre-exis ting essentia l hyperten geronimo complica ting pregnanc y, first trimeste r;Record ed Elsewher e: No [facility]at ion: [facility] S ource: EHR Automatic Packer Operator mara: N Franklin ce ID: 0001 Gera lable Time: 06:00:00 PM Martha Patrick [facility], [facility] 15:29:08 Finding by site Completed 201504/27/2021 Dermatit is;Recor ded Elsewher e: No Locat ion: [facility] S ource: EHR Automatic Packer Operator mara: Zander Reid ce ID: 0001 Gera lable Time: 05:00:00 PM Martha calvert, [facility] 15:28:54 Body mass index 30+ - obesity 070562012 Completed 201504/27/2021 Body mass index (BMI) 45.0-49. 9, adult;Re corded Elsewher e: No Locat ion: [facility] S ource: EHR Automatic Packer Operator mara: N Dmitryti ce ID: 0001 Gera lable Time: 04:30:00 PM Martha calvert, [facility] 15:28:30 Amenorrh ea [id number] Completed 201504/27/2021 Amenorrh ea;Recor ded Elsewher e: No [facility]at [facility]: [facility] S ource: EHR Automatic Packer Operator mara: N Practi ce ID: 0001 Gera lable Time: 03:30:00 PM Martha calvert, [facility] 15:28:22 Procedur e by method Completed 201504/27/2021 Encounte r for oth general cnsl and advice on contrace ption;Pr actice ID: 0001 Martha calvert, [facility] 15:30:02 Mastitis Completed 201504/27/2021 Mastitis ;Recorde d Elsewher e: No Locat ion: [facility] S ource: EHR Automatic Packer Operator mara: N Practi ce ID: 0001 Gera lable Time: 12:00:00 PM Martha calvert, [facility] 15:32:00 Inflamma tory disorder of breast 632747678 Completed 201504/27/2021 Mastitis without abscess; Practice ID: 0001 Martha calvert, [facility] 15:29:37 Candidia sis [id number] Completed 201604/27/2021 Candidia sis;Robert rded Elsewher e: No Locat ion: [facility] S ource: EHR Automatic Packer Operator mara: N Practi ce ID: 0001 Gera lable Time: 04:15:00 PM Martha calvert, [facility] 15:32:[address] Concept Completed 201604/27/2021 Encntr for general adult medical exam w/o abnormal findings ;Recorde d Elsewher e: No [facility]at [facility]: [facility] S ource: EHR Automatic Packer Operator mara: N Practi ce ID: 0001 Gera lable Time: 04:30:00 PM Martha calvert, [facility] [address] 15:29:[address] Concept Completed 201604/27/2021 Encntr for regional ehs manager exam (general ) (routine ) w/o abn findings ;Recorde d Elsewher e: No Locat ion: [facility] S ource: EHR Automatic Packer Operator mara: N Practi ce ID: 0001 Gera lable Time: 04:30:00 PM Martha Darnell calvert, [facility] 1 15:30:00 Finding of body mass index [id number] Completed 201604/27/2021 Body mass index (BMI) 40.0-44. 9, adult;Re corded Elsewher e: No Locat ion: [facility] S ource: EHR Automatic Packer Operator mara: N Practi ce ID: 0001 Gera lable Time: 04:30:00 PM Martha calvert, [facility] 15:29:49 Acute vulvitis [id number] Completed 201604/27/2021 Vulvitis ;Recorde d Elsewher e: No Locat ion: [facility] S ource: EHR Automatic Packer Operator mara: N Practi ce ID: 0001 Gera lable Time: 12:30:00 PM Martha Darnell calvert [facility] 15:29:54 Benign neoplasm of vulva [id number] Completed 201604/27/2021 Benign neoplasm of vulva;Re corded Elsewher e: No Locat ion: [facility] S ource: EHR Automatic Packer Operator mara: N Practi ce ID: 0001 Gera lable Time: 03:45:00 PM Martha calvert [facility] 15:32:50 Vaginola bial hernia Completed 201604/27/2021 Other specifie d noninfla mmatory disorder s of vagina;P ractice ID: 0001 Martha calvert, [facility] 15:29:34 Uterine size for dates discrepa ncy Completed 201604/27/2021 Uterine size-sydney e discrepa ncy, first trimeste r;Record ed Elsewher e: No [facility]at [facility] S ource: EHR Automatic Packer Operator mara: N Practi ce ID: 0001 Gera lable Time: 05:45:00 PM Martha Nelson [facility], [facility] 15:29:16 Urinary tract infectio us disease [id number] Completed 201604/27/2021 Urinary tract infectio n, site not specifie d;Record ed Elsewher e: No Locat ion: [facility] S ource: EHR Automatic Packer Operator mara: N Practi ce ID: 0001 Gera lable Time: 04:00:00 PM Martha Darnell calvert, [facility] 15:32:22 Gestatio n less than 9 weeks [id number] Completed 201604/27/2021 Less than 8 weeks gestatio n of pregnanc y;Record ed Elsewher e: No Locat ion: [facility] S ource: EHR Automatic Packer Operator mara: N Practi ce ID: 0001 Gera lable Time: 03:00:00 PM Martha Nelson enrike, [facility] 15:31:50 Hyperten sive disorder [id number] Completed 201604/27/2021 [facility]ia l (primary ) hyperten geronimo;Rec orded Elsewher e: No Locat ion: [facility] S ource: EHR Automatic Packer Operator mara: N Practi ce ID: 0001 Gera lable Time: 05:15:00 PM Martha Nelsongavin calvert, [facility] 15:30:07 Secondar y amenorrh ea [id number] Completed 201604/27/2021 Secondar y amenorrh ea;Pract ice ID: 0001 Martha Darnell calvert, [facility] 1 15:28:26 Pregnanc y detectio n examinat ion Completed 201604/27/2021 Encounte r for pregnanc y test, result positive ;Practic e ID: 0001 Martha calvert, [facility] 15:32:32 Antenata l screenin g Completed 201604/27/2021 Encounte r for antenata l screenin g for nuchal transluc ency;Rec orded Elsewher e: No Locat ion: [facility] S ource: EHR Automatic Packer Operator mara: N Practi ce ID: 0001 Gera lable Time: 01:30:00 PM Martha calvert [facility] 15:29:26 Gestatio n period, 19 weeks [id number] Completed 201704/27/2021 19 weeks gestatio n of pregnanc y;Practi ce ID: 0001 Martha calvert, [facility] 15:32:16 Antenata l screenin g for malforma tion Completed 201704/27/2021 Encounte r for antenata l screenin g for malforma tions;Re corded Elsewher e: No Locat ion: [facility] S ource: EHR Automatic Packer Operator mara: N Practi ce ID: 0001 Gera lable Time: 03:45:00 PM Martha calvert [facility] [address] 15:32:[address] Concept Completed 201704/27/2021 Anxiety; Recorded Elsewher e: No Locat ion: [facility] S ource: EHR Automatic Packer Operator mara: N Practi ce ID: 0001 Gera lable Time: 05:30:00 PM Martha calvert [facility] 15:28:24 Gestatio n period, 20 weeks [id number] Completed 201704/27/2021 20 weeks gestatio n of pregnanc y;Practi ce ID: 0001 Martha calvert, [facility] 15:29:01 Gestatio n period, 24 weeks [id number] Completed 201704/27/2021 24 weeks gestatio n of pregnanc y;Practi ce ID: 0001 Martha calvert, [facility] 15:29:52 Gestatio n period, 23 weeks [id number] Completed 201704/27/2021 23 weeks gestatio n of pregnanc y;Practi ce ID: 0001 Martha Patrick enrike, [facility] 15:32:45 Normal pregnanc y in multigra raya [id number] 4106 Completed 201704/27/2021 Encounte r for suprvsn of normal pregnanc y, second trimeste r;Record ed Elsewher e: No Locat ion: [facility] S ource: EHR Automatic Packer Operator mara: N Practi ce ID: 0001 Gera lable Time: 03:00:00 PM Matrha calvert, [facility] 15:32:02 Pregnanc y, childbir th and puerperi um finding Completed 201704/27/2021 Oth pregnanc y related conditio ns, first trimeste r;Practi ce ID: 0001 Martha calvert, [facility] 15:29:18 Dyspnea [id number] Completed 201704/27/2021 Shortnes s of breath;P yahirtice ID: 0001 Martha Patrick enrike, [facility] 15:29:39 Gestatio n period, 25 weeks [id number] Completed 201704/27/2021 25 weeks gestatio n of pregnanc y;Practi ce ID: 0001 Martha Nelson enrike, [facility] 15:32:30 Gestatio n period, 28 weeks [id number] Completed 201704/27/2021 28 weeks gestatio n of pregnanc y;Record ed Elsewher e: No Locat ion: [facility] S ource: EHR Automatic Packer Operator mara: N Practi ce ID: 0001 Gera lable Time: 08:15:00 AM Martha Darnell enrike, [facility] 15:32:48 Gestatio nal diabetes mellitus in childbir th [id number] Completed 201704/27/2021 Gestatio nal diabetes mellitus in childbir , diet controll ed;Recor ded Elsewher e: No Locat ion: [facility] S ource: EHR Automatic Packer Operator mara: N Practi ce ID: 0001 Gera lable Time: 02:45:00 PM Martha Nelson enrike, [facility] 15:27:44 Abnormal glucose toleranc e in mother complica ting [facility] [id number] Completed 201704/27/2021 Abnormal glucose complica ting pregnanc y;Record ed Elsewher e: No Locat ion: [facility] S ource: EHR Automatic Packer Operator mara: N Practi ce ID: 0001 Gera lable Time: 09:03:24 AM Martha calvert, [facility] 15:30:09 Gestatio n period, 29 weeks [id number] Completed 201704/27/2021 29 weeks gestatio n of pregnanc y;Practi ce ID: 0001 Martha Darnell calvert, [facility] 15:31:58 Diet educatio n Completed 201704/27/2021 Dietary counseli ng and surveill ance;Pra ctice ID: 0001 Martha calvert, [facility] 15:27:51 Dietary manageme nt surveill ance Completed 201704/27/2021 Dietary counseli ng and surveill ance;Pra ctice ID: 0001 Martha calvert, [facility] 15:31:44 Severe obesity complica ting pregnanc y [id number] Completed 201704/27/2021 Obesity complica ting pregnanc y, unspecif ied trimeste r;Record ed Elsewher e: No Locat ion: [facility] S ource: EHR Automatic Packer Operator mara: N Dmitryti ce ID: 0001 Gera lable Time: 04:00:00 PM Martha calvert, [facility] 15:28:28 Gestatio n period, 32 weeks [id number] Completed 201704/27/2021 32 weeks gestatio n of pregnanc y;Record ed Elsewher e: No Locat ion: [facility] S ource: EHR Automatic Packer Operator mara: N Dmitryti ce ID: 0001 Gera lable Time: 03:00:00 PM Martha calvert, [facility] 15:32:33 Gestatio nal diabetes mellitus [id number] Completed 201704/27/2021 Gestatio nal diabetes mellitus in pregnanc y, unsp control; Recorded Elsewher e: No Locat ion: [facility] S ource: EHR Automatic Packer Operator mara: N Practi ce ID: 0001 Gera lable Time: 03:00:00 PM Martha calvert, [facility] 15:27:50 Hyperten geronimo in the obstetri c context Completed 201704/27/2021 Pre-exis ting essentia l htn comp pregnanc y, third trimeste r;Record ed Elsewher e: No [facility]at ion: [facility] S ource: EHR Automatic Packer Operator mara: N Practi ce ID: 0001 Gera lable Time: 09:30:00 AM Martha calvert [facility] 15:29:10 Gestatio n period, 33 weeks [id number] Completed 201704/27/2021 33 weeks gestatio n of pregnanc y;Record ed Elsewher e: No Locat ion: Nanda sullivan [facility] S ource: EHR Automatic Packer Operator mara: N Practi ce ID: 0001 Gera lable Time: 09:30:00 AM Martha calvert, [facility] 15:32:37 Complica tion occurrin g during pregnanc y Completed 201704/27/2021 Infectio n oth prt genitl trct in pregnanc y, third trimeste r;Practi ce ID: 0001 Martha calvert, [facility] 15:29:15 Uterine fibroid complica ting antenata l care, baby not yet delivere d [id number] Completed 201704/27/2021 Maternal care for benign tumor of corpus uteri, third tri;Robert rded Elsewher e: No [facility]at [facility] S ource: EHR Automatic Packer Operator mara: N Practi ce ID: 0001 Gera lable Time: 03:30:00 PM Martha calvert [facility] 15:29:05 Gestatio n period, 34 weeks [id number] Completed 201704/27/2021 34 weeks gestatio n of pregnanc y;Record ed Elsewher e: No Locat ion: Nanda sullivan [facility] S ource: EHR Automatic Packer Operator mara: N Practi ce ID: 0001 Gera lable Time: 03:00:00 PM Martha calvert [facility] 15:28:17 Pelvic and perineal pain [id number] Completed 201704/27/2021 Pelvic pain;Rec orded Elsewher e: No [facility]at ion: [facility] S ource: EHR Automatic Packer Operator mara: N Franklin ce ID: 0001 Gera lable Time: 02:00:00 PM Martha calvert, [facility] 15:29:46 Finding of trunk structur e Completed 201704/27/2021 Oth diseases and conditio ns compl preg/chl dbrth;Pr actice ID: 0001 Martha calvert, [facility] 15:29:24 Gestatio n period, 36 weeks [id number] Completed 201704/27/2021 36 weeks gestatio n of pregnanc y;Record ed Elsewher e: No Locat ion: [facility] S ource: EHR Automatic Packer Operator mara: N Franklin ce ID: 0001 Gera lable Time: 03:30:00 PM Martha calvert, [facility] 15:32:18 heart finding Completed 201704/27/2021 Abnlt in heart rate and rhythm comp labor and delivery ;Practic e ID: 0001 Martha calvert, [facility] 15:29:23 Procedur e on genitour inary system Completed 201704/27/2021 Encounte r for surgical aftercar e followin g surgery on the genitour inary system;R ecorded Elsewher e: No [facility] S ource: EHR Automatic Packer Operator mara: N Dmitryti ce ID: 0001 Gera lable Time: 04:45:00 PM Martha calvert [facility] 15:27:53 Postoper ative care Completed 201704/27/2021 Encounte r for surgical aftercar e followin g surgery on the genitour inary system;R ecorded Elsewher e: No Locat ion: [facility] S ource: EHR Automatic Packer Operator mara: N Practi ce ID: 0001 Gera lable Time: 04:45:00 PM Martha calvert, [facility] 15:28:15 Asymptom at microsco pic hematuri a [id number] Completed 201704/27/[facility];Record ed Elsewher e: No Locat ion: [facility] S ource: EHR Automatic Packer Operator mara: N Practi ce ID: 0001 Gera lable Time: 04:45:00 PM Martha calvert, [facility] 15:28:31 Single live from singleto n pregnanc y [id number] Completed 201704/27/2021 Single live ;Re corded Elsewher e: No Locat ion: [facility] S ource: EHR Automatic Packer Operator mara: N Practi ce ID: 0001 Gera lable Time: 09:45:00 AM Martha calvert, [facility] 15:28:33 Elevated blood-pr essure reading without diagnosi s of hyperten geronimo [id number] Completed 201704/27/2021 Elevated blood-pr essure reading, w/o diagnosi s of htn;Prac dmitriy ID: 0001 Martha calvert, [facility] 15:30:05 Infectio n of nipple associat ed with lactatio n [id number] [id number] Completed 201704/27/2021 Infectio n of nipple associat ed with lactatio n;Record ed Elsewher e: No Locat ion: [facility] S ource: EHR Automatic Packer Operator mara: N Practi ce ID: 0001 Gera lable Time: 01:45:00 PM Martha Darnell calvert, [facility] 15:27:46 Mental disorder in mother complica ting pregnanc y [id number] Completed 201704/27/2021 post depressi on;Recor ded Elsewher e: No Locat ion: [facility] S ource: EHR Automatic Packer Operator mara: Zander Andresti ce ID: 0001 Gera lable Time: 03:30:00 PM Martha calvert, [facility] 15:32:25 Finding of sensatio n of breast Completed 201804/27/2021 Mastodyn ia;Recor ded Elsewher e: No Locat ion: [facility] S ource: EHR Automatic Packer Operator mara: Zander Dmitryti ce ID: 0001 Gera lable Time: 10:00:00 AM Martha calvert, [facility] 15:29:00 Mass of left breast [id number] [id number] Completed 201804/27/2021 Mass in the left breast;R ecorded Elsewher e: No Locat ion: [facility] S ource: EHR Automatic Packer Operator mara: Zander Dmitryti ce ID: 0001 Gera lable Time: 10:00:00 AM Martha calvert, [facility] 15:27:59 Breast lump [id number] Completed 201804/27/2021 Unspecif ied lump in unspecif ied breast;R ecorded Elsewher e: No Locat ion: [facility] S ource: EHR Automatic Packer Operator mara: N Dmitryti ce ID: 0001 Gera lable Time: 10:00:00 AM Martha calvert, [facility] 15:32:47 Evaluati on finding Completed 201904/27/2021 Hematuri a, unspecif ied;Robert rded Elsewher e: No Locat ion: [facility] S ource: EHR Automatic Packer Operator mara: N Dmitryti ce ID: 0001 Gera lable Time: 09:45:00 AM Martha calvert [facility] 15:29:44 Problem Notes None recorded. Procedures Surgical History Date Name Laterality Status Provider Name and Address Organization Details Recorded Time 024 TOTAL HYSTERECTOMY, LAPAROSCOPIC, WITH BILATERAL SALPINGO-OOPHORECT TYRONE (SURG) completed Obed Song [facility] 12/24/2023 15:05:34 022 Date of Last Pap Smear completed Sana Bean [facility] 06/20/2023 14:08:42 022 Endometrial Biopsy completed Benedict Rick MD [address], [place], [address], , P[facility] 04/11/2022 22:28:30 022 endometrial biopsy completed Gabi Mauricio [facility] 12/08/2023 17:21:44 022 endoscopy completed Gabi Mauricio [facility] 02/20/2022 19:42:08 021 Breast Surgery completed Gabi Mauricio [facility] 02/20/2022 19:40:20 021 Date of Last Mammogram completed Martha Patrick [facility] 04/30/2021 15:41:08 021 completed Martha Patrick [facility] 04/30/2021 15:41:23 018 delivery completed Gabi Mauricio [facility] 02/20/2022 19:41:32 017 biopsy of vulva completed Gabi Mauricio [facility] 02/20/2022 19:41:52 016 cholecystectomy completed Gabi Mauricio [facility] 02/20/2022 19:42:[address] segment monitoring completed [facility] [place] 02/20/2022 19:43:39 013 Colposcopy completed [facility] [place] [facility] 02/20/2022 19:44:17 013 Colposcopy completed [facility] [place] [facility] 02/20/2022 19:42:48 012 Laparoscopy completed [facility] [place] [facility] 02/20/2022 19:41:16 010 Date of Last Colonoscopy completed [facility] [place] 02/20/2022 19:43:55 010 Colonoscopy completed [facility] [place] 02/20/2022 19:42:22 008 Laparoscopy completed [facility] [place] 02/20/2022 19:40:36 Imaging Results None recorded. Procedure Notes None recorded. Medical Equipment None Reported. Allergies Allergen ID Allergen Name Allergen Category Reaction Reaction Severity Criticality Documentation Date Start Date Code Code System Note Provider Name and Address Organization Details Recorded Time 96386 Product containin g penicilli n (product) medicatio n Not available Not available Not available 02/01/2022 93190 8001 SNOMED Gabi Mauricio [facility] 2 16:33:01 48378 Reglan medicatio n Not available Not available Not available 02/01/2022 9230 RxNorm Dorys Chavarria [facility] 4 16:43:02 2390 fluconazo le medicatio n Not available Not available Not available 07/10/2020 4450 RxNorm Check ed with jane rock and she denirma s aller gy. Martha Patrick [facility] 1 15:38:58 2391 promethaz ine medicatio n Not available Not available Not available 07/10/2020 8745 RxNorm Justine Rodriguez [facility] 0 18:51:09 Medications Name Sig Start [...] Prescrib ed Elsewher e: No Locat ion: [facility] odify By: remigio andrewunter DateTime : 04/15/20 12:11:22 PM Not Available Not Available Not Available buspirone 5 mg tablet take 1 tablet by oral route 3 times every day 06/13 completed Prescrib ed Elsewher e: Yes Loca tion: [facility] odify By: jeferson andrewunter DateTime : 10/19/19 16 02:45:00 PM Not Available Not Available Not Available neomycin- polymyxin -hydrocor t 3.5 mg/mL-10, 000 unit/mL-1 % ear solution 12/07 completed Not Available Not Available Not Available Colace 100 mg capsule take 1 capsule by oral route every day at bedtime as needed 04/23 completed Prescrib ed Elsewher e: Yes Loca tion: [facility] odify By: jeferson Sullivan ncounter DateTime : 03/30/20 18 04:45:00 PM Not Available Not Available Not Available naproxen 375 mg tablet TAKE 1 TABLET BY MOUTH TWICE DAILY 12/07 completed Not Available Not Available Not Available labetalol 200 mg tablet TAKE 1 TABLET BY ORAL ROUTE 2 TIMES EVERY DAY 11/19 completed Prescrib ed Elsewher e: No Locat ion: [facility] odify By: [email or web address] Sullivan ncounter DateTime : 03/17/20 18 03:37:47 PM Not Available Not Available Not Available ketoconaz ole 2 % shampoo APPLY TOPICALL Y 2 TIMES A WEEK 12/02 completed Not Available Not Available Not Available Percocet 2.5 mg-325 mg tablet take 1 tablet by oral route every 6 hours as needed 03/16 completed Prescrib ed Elsewher e: Yes Loca tion: [facility] odify By: anbeba Sullivan ncounter DateTime : 06/22/20 12 09:46:35 AM Not Available Not Available Not Available Norvasc 10 mg tablet TAKE 1 TABLET BY ORAL ROUTE EVERY DAY 02/19 completed Prescrib ed Elsewher e: No Locat ion: [facility] odify By: amkuhpanda Sullivan ncounter DateTime : 01/19/20 16 10:30:18 [...] Elsewher e: Yes Loca tion: [facility] odify By: [email or web address] z Encoun ter [...] Prescrib ed Elsewher e: No [facility]at [facility]ify By: [email or web address] Ute melchor DateTime : [...] Prescrib ed Elsewher e: Yes [facility]oca [facility]ify By: jeferson mcadams DateTime : 04/09/20 [...] Prescrib ed Elsewher e: Yes Loca tion: [facility] odify By: [email or web address] z Encoun gabriel DateTime : 03/30/20 18 04:45:00 PM Not Available Not Available Not Available Macrobid 100 mg capsule take 1 capsule by oral route every 12 hours with food 09/25 completed Prescrib ed Elsewher e: No Locat ion: [facility] odify By: smcaley Ute melchor DateTime : 09/08/20 14 08:30:00 AM Not Available Not Available Not Available nystatin- triamcino lone 100,000 unit/gram -0.1 % topical ointment apply by topical route 2 times every day to the affected area(s) x 5 days 04/27 completed Prescrib ed Elsewher e: No Locat ion: [facility] odify By: rufina vásquez DateTime : 11/19/19 [...] Elsewher e: No Locat ion: [facility] odify By: tom Sullivan ncounter DateTime [...] Prescrib ed Elsewher e: No [facility]at [facility] odify By: [email or web address] trick En counter [...] Prescrib ed Elsewher e: No Locat ion: [facility] odify By: ruben Sullivan ncounter DateTime : [...] Elsewher e: No Locat ion: [facility]anda sullivan [facility] odify By: ruben Sullivan abbe DateTime : [...] Elsewher e: Yes Loca tion: Nanda sullivan [facility] odify By: remigio mcadams DateTime : [...] Elsewher e: Yes Loca tion: Nanda sullivan [facility] odify By: isaac rios DateTime : [...] Elsewher e: No Locat ion: Nanda sullivan [facility] odify By: mike melchor DateTime : 05/09/20 17 12:30:00 PM Not Available Not Available Not Available Vitamin B-6 50 mg tablet 11/26 completed Prescrib ed Elsewher e: Yes Loca tion: Nanda sullivan [facility] odify By: rogelio Unger r DateTime : 08/26/20 12 02:15:00 PM Not Available Not Available Not Available Nor-Q-D 0.35 mg tablet TAKE 1 TABLET BY ORAL ROUTE EVERY DAY 02/19 completed Prescrib ed Elsewher e: No Locat ion: Nanda sullivan [facility] odify By: ammarita Sullivan ncounter DateTime : 01/19/20 16 10:30:18 AM Not Available Not Available Not Available methylpre dnisolone 4 mg tablets in a dose pack 12/07 completed Not Available Not Available Not Available labetalol 100 mg tablet take 1 tablet by oral route 2 times every day 01/26 completed Prescrib ed Elsewher e: No Locat ion: Nanda sullivan [facility] odify By: bianca rios DateTime : 01/06/20 18 10:57:26 AM Not Available Not Available Not Available Vitamin D2 1,250 mcg (50,000 unit) capsule take 1 capsule by oral route every week 11/19 completed Prescrib ed Elsewher e: Yes Loca tion: [facility]anda sullivan [facility] odify By: remigio Sullivan ncounter DateTime [...] ed Elsewher e: No Locat ion: [facility] odify By: ruben Sullivan ncounter DateTime : 07/03/20 18 03:30:00 PM Not Available Not Available Not Available Terazol 7 0.4 % vaginal cream insert 1 applicat orful by vaginal route every day for 7 days at bedtime 12/10 completed Prescrib ed Elsewher e: No Locat ion: Nanda sullivan [facility] odify By: ruben Sullivan ncounter DateTime : 12/05/19 17 04:15:00 PM Not Available Not Available Not Available Zoloft 25 mg tablet take 1 tablet by oral route every day 01/28 completed Prescrib ed Elsewher e: Yes Loca tion: Nanda sullivan [facility] odify By: tggume Cardozo ter DateTime : 10/19/19 16 02:45:00 PM Not Available Not Available Not Available hydroxyzi ne HCl 10 mg tablet 02/03 completed Prescrib ed Elsewher e: Yes Loca tion: Nanda sullivan [facility] odify By: lizzy Encount er DateTime [...] ed Elsewher e: Yes Loca tion: [facility] odify By: mariaelena rios DateTime : 04/09/20 12 03:00:00 PM Not Available Not Available Not Available Imitrex 25 mg tablet take 1 tablet by oral route once with fluids as early as possible after the onset of a migraine attack;m ay repeat after 2 hours if headache returns, not to exceed 200mg in 24hrs 10/19 completed Prescrib ed Elsewher e: Yes Loca tion: [facility] odify By: jeferson Sullivan ncounter DateTime : [...] Elsewher e: Yes Loca tion: Nanda sullivan [facility] odify By: remigio mcadams DateTime : 03/30/20 18 04:45:00 PM Not Available Not Available Not Available Clomid 50 mg tablet take 1 tablet (50MG) by oral route every day 03/16 completed Prescrib ed Elsewher e: No Locat ion: Nanda sullivan [facility] odify By: tom mcadams DateTime : [...] Elsewher e: Yes Loca tion: Inge nate [facility] odify By: remigio mcadams DateTime : 11/19/19 20 09:45:00 AM Not Available Not Available Not Available Reglan 5 mg tablet take 1 tablet by oral route 4 times every day 30 minutes before meals and at bedtime 03/30 completed Prescrib ed Elsewher e: No Locat ion: Inge nate [facility] odify By: [email or web address] z Encoun gabriel DateTime : 11/20/19 18 01:51:48 PM Not [...] Elsewher e: Yes Loca tion: Nanda sullivan [facility] odify By: symone z Juliane ter DateTime : 08/14/20 16 04:15:00 PM Not Available Not Available Not Available magnesium 200 mg tablet 11/26 completed Prescrib ed Elsewher e: Yes Loca tion: Nanda sullivan [facility] odify By: rogelio Cardozote r DateTime : 11/19/19 12 02:30:00 PM Not Available Not Available Not Available escitalop michelle 10 mg tablet TAKE 1 TABLET BY MOUTH DAILY 04/30 completed Not Available Not Available Not Available Calcium+D 400 mg -133.3 unit tablet 05/26 completed Prescrib ed Elsewher e: Yes Loca tion: Nanda sullivan [facility] odify By: mike Unger r DateTime : 12/16/19 13 02:30:00 PM Not Available Not Available Not Available eletripta n 20 mg tablet 12/07 completed Not Available Not Available Not Available Flexeril 5 mg tablet take 1 tablet by oral route 3 times every day 09/25 completed Prescrib ed Elsewher e: Yes Loca tion: Nanda sullivan [facility] odify By: rogelio Cardozote r DateTime : 08/26/20 12 02:15:00 PM Not Available Not Available Not Available Mycamine 50 mg intraveno us solution infuse by intraven ous route every day over 08/26 completed Prescrib ed Elsewher e: Yes Loca tion: Inge nate [facility] odify By: tgingric lily Cardozo ter DateTime : 08/26/20 12 02:15:00 PM Not Available Not Available Not Available spironola ctone 04/30 completed Not Available Not Available Not Available Acid Iuss Master Analyst 04/30 completed Not Available Not Available Not Available Sudogest 12-hour 120 mg tablet,ex tended release TAKE 1 TABLET BY MOUTH EVERY 12 HOURS NEEDED FOR NASAL CONGESTI ON active Not Available Not Available No t Available B-12 Plus 5,000 mcg-100 mcg sublingua l tablet 11/26 completed Prescrib ed Elsewher e: Yes Loca tion: Nanda sullivan [facility] odify By: rogelio Encounte r DateTime : 05/25/20 13 05:00:00 PM Not Available Not Available Not Available Savella 100 mg tablet take 1 tablet (100MG) by oral route 2 times every day 02/19 completed Prescrib ed Elsewher e: No Locat ion: Nanda sullivan [facility] odify By: [email or web address] Sullivan ncounter DateTime : 11/19/19 12 02:30:00 [...] Elsewher e: Yes Loca tion: Nanda sullivan [facility] odify By: lizzy Sauceda er DateTime : 04/09/20 12 03:00:00 PM Not Available Not Available Not Available fiber 2 gram chewable tablet 03/16 completed Prescrib ed Elsewher e: Yes Loca tion: Nanda sullivan [facility] odify By: tom Sullivan ncounter DateTime : 11/19/19 12 02:30:00 PM Not Available Not Available Not Available Zyrtec 10 mg capsule 02/03 completed Prescrib ed Elsewher e: Yes Loca tion: Nanda sullivan [facility] odify By: lizzy Cardozot er DateTime : 05/26/20 14 11:00:00 AM Not Available Not Available Not Available Kishore-Citra te 250 mg-2.5 mcg (100 unit) tablet 11/19 completed Prescrib ed Elsewher e: Yes Loca tion: Nanda [facility] odify By: remigio Sullivan ncounter DateTime : 03/30/20 18 04:45:00 PM Not Available Not Available Not Available Viibryd 10 mg tablet 12/07 completed Not Available Not Available Not Available Viibryd 20 mg tablet TAKE 1 TABLET BY MOUTH DAILY WITH FOOD 12/07 completed Not Available Not Available Not Available 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 28 mg iron-1 mg-200 mg capsule take 1 capsule by oral route every day 08/14 completed Prescrib ed Elsewher e: No Locat ion: Nanda sullivan [facility] odify By: symone z Encoun ter [...] Not Available Not Available Not Available Fora M20-E71-C 10-D20 strips-la ncets 30 gauge combo pack checking bs QID fasting and hour after breakfas t, lunch & dinner 04/16 completed Prescrib ed Elsewher e: No [facility] odify By: symone z Encoun ter DateTime [...] Body mass index (BMI) Body weight Systolic And Diastolic Provider Name and Address Organization Details Last Updated DateTime 12/03/2023 162.56 cm 47.7 kg/m2 541804.68 g 131/84 mm[Hg] Dorys Chavarria [facility] 12/03/2023 16:41:51 Date Recorded Systolic And Diastolic Provider Name and Address Organization Details Last Updated DateTime 12/04/2023 128/100 mm[Hg] Gabi Mauricio [facility] 12/04/2023 16:13:19 Date Recorded Body height Body mass index (BMI) Body weight Provider Name and Address Organization Details Last Updated DateTime 12/04/2023 162.56 cm 47.2 kg/m2 038987.62 g Ledy Perry [facility] 12/04/2023 16:04:48 Date Recorded Body height Provider Name an d Address Organization Details Last Updated DateTime 12/05/2023 162.56 cm Ledy Perry [facility] 12/05/2023 13:47:00 Date Recorded Body height Body mass index (BMI) Body weight Systolic And Diastolic Provider Name and Address Organization Details Last Updated DateTime 12/08/2023 162.56 cm 47 kg/m2 514776.31 g 131/85 mm[Hg] Gabi Mauricio [facility] 12/08/2023 17:18:57 Date Recorded Body height Body mass index (BMI) Body weight Systolic And Diastolic Provider Name and Address Organization Details Last Updated DateTime 12/19/2023 162.56 cm 48.1 kg/m2 802943.86 g 133/84 mm[Hg] Dorys Aura [facility] 12/19/2023 12:40:07 Social History Question Answer Notes LastModified by Organizat ion Details LastModified Time Tobacco Smoking Status Never Smoker Kevin calvert [facility] 04/19/2022 16:08:04 Do You Have An Advance Directive? No [email or web address] Information n ot available 04/30/2021 How Many Years Have You Consumed Alcohol? 20 [email or web address] Information not available 04/30/2021 Are You Blind Or Do You Have Difficulty Seeing? No [email or web address] Information n ot available 04/30/2021 What Is Your Level Of Caffeine Consumption? Moderate [email or web address] Information not available 04/30/2021 How Much Tobacco Do You Chew? None Information not available 04/30/2021 In The 14 Days Before Symptom Onset, Have You Had Close Contact With A Laboratory-confirm ed COVID-19 While That Case Was Ill? No [email or web address] Information n ot available 04/30/2021 In The 14 Days Before Symptom Onset, Have You Had Close Contact With A Person Who Is Under Investigation For COVID-19 While That Person Was Ill? No [email or web address] Information not available 04/30/2021 Have You Been To An Area Known To Be High Risk For COVID-19? No [email or web address] Information not available 04/30/2021 Are You Deaf Or Do You Have Serious Difficulty Hearing? No Information not available 04/30/2021 What Type Of Diet Are You Following? REGULAR [email or web address] Information n ot available 04/30/2021 What Is The Highest Grade Or Level Of School You Have Completed Or The Highest Degree You Have Received? [id number] Information not available 04/30/2021 Are There Any Guns Present In Your Home? No [email or web address] Information not available 04/30/2021 Do You Use Protection During Sex? No [email or web address] Information not available 04/30/2021 Do You Use Your Seat Belt Or Car Seat Routinely? Yes Information not available 04/30/2021 Do You Have Smoke And Carbon Monoxide Detectors In Your Home? Yes [email or web address] Information not available 04/30/2021 At What Age Did You Start Smoking Tobacco? 16 [email or web address] Information not available 04/30/2021 How Much Tobacco Do You Smoke? No [email or web address] Information not available 04/30/2021 Do You Use Sunscreen Routinely? Yes Information not available 04/30/2021 How Many Years Have You Smoked Tobacco? 10 [email or web address] Information not available 04/30/2021 Have You Used IV Drugs? No [email or web address] Information not available 04/30/2021 Do You Have Difficulty Walking Or Climbing Stairs? No [email or web address] Information not available 12/08/2023 Sex: Unknown Functional Status Question Answer Note LastModified by Organizat ion Details LastModified Time Do you use any illicit or recreational drugs? No Information not available 04/30/2021 What is your level of alcohol consumption? Occasional [email or web address] Information not available 04/30/2021 Are you able to walk independently without assistance or assistive devices? [email or web address] Information not available 04/30/2021 Are you able to care for yourself independently? 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 No [email or web address] Information not available 12/08/2023 What is your exercise level? Occasional [email or web address] Information not available 04/30/2021 Mental Status Question Answer Note LastModified by Organization D etails LastModified Time Do you feel stressed (tense, restless, nervous, or anxious, or unable to sleep at night)? [id number] [email or web address] Information not available 02/01/2022 Family History Relationship Description Onset Age of this Age Resolved Age Notes LastModified by Organization Details LastModified Time Paternal Grandmother Family history of breast cancer [email or web address] Not available 2023 12:36:17 Paternal Grandmother Malignant neoplasm of lung [email or web address] Not available 2020 16:47:00 Paternal Grandmother Malignant neoplasm of lung [email or web address] Not available 2023 12:36:17 Mother Cyst of ovary [email or web address] Not available 2023 12:36:17 Mother Disorder of thyroid gland [email or web address] Not available 2020 16:47:00 Mother Disorder of thyroid gland Not available 2023 12:36:17 Paternal Uncle Myocardial infarction [email or web address] Not available 08/03 16:47:00 Paternal Uncle Myocardial infarction [email or web address] Not available 12/18 12:36:17 Medical History Condition [...] Diagnosis SNOMED-CT Code Diagnosis ICD10 Code Diagnosis IMO Codes Diagnosis Note [id number] Kamilah Mai CNM [address] [address] 07/11/2020 09:32:22 07/18/2020 16:00:43 Vaginitis 86519574 N76.0 Discussed use of mild soap like [...] access next gen chart d/t being at [facility]) [id number] Kamilah Mai CNM [facility] [address] [address] 04/30/2021 15:27:17 05/01/2021 16:20:30 Abnormal uterine bleeding 2685390747 9100 N93.9 Labs and u/s. Return to discuss results and determine plan of care. 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 [id number] Benedict Rick MD [facility] [address],[place] [address] 07/09/2021 09:14:36 07/09/2021 10:18:55 Abnormal uterine bleeding 5343312749 9100 N93.9 N83.292 [id number] Benedict Rick MD [facility] [address],[place] [address] 08/03/2021 16:23:33 08/04/2021 11:43:29 Cyst of ovary 52121706 N83.209 impression : This patient is a 36-year-ol d female who presents for ultrasound follow-up. She has an ovarian cyst that is smaller and less complicate d than previously seen. We have agreed to stay to observe for symptoms. She will follow up as needed. We reviewed the images together. [id number] [facility] [address] [address] 02/01/2022 16:12:58 02/01/2022 17:03:53 Irregular periods 75438494 N92.6 [id number] Benedict Rick MD [facility] [address] [address] 02/07/2022 17:25:22 02/08/2022 15:12:07 Irregular periods 59655201 N92.6 [id number] Benedict Rick MD [facility] [address] [address] 03/22/2022 16:05:40 03/22/2022 17:24:19 Dysmenorrhea 702067501 N94.6 Menorrhagia 950921046 N9 2.0 Cyst of ovary 74415333 N 83.209 this patient is a 36-year-ol [...] ultrasound 3 months for the cystic structure. [id number] Benedict Rick MD [facility] [address] [address] 04/11/2022 17:27:12 04/12/2022 15:23:40 Screening procedure 65253802 Z13.9 Abnormal u terine bleeding 9089078294 9100 N93.9 N83.292 endometria l biopsy was performed. She tolerated the procedure well. [id number] Savannah Downing [facility] [address],[facility] [place] [address] 04/19/2022 16:07:08 04/22/2022 16:26:47 Gynecologic examination 96443901 Z11.51 Z11.3 Z11.8 Take Calcium with Vitamin [...] na Dexa Screen na Routine Labs UTD PCPMao (neg in past) [id number] [facility] [address] [address] 06/20/2023 13:53:11 06/23/2023 15:20:32 Gynecologic examination 05670337 Z11.51 Z11.3 Z11.8 Take Calcium with Vitamin [...] Screen naRoutine LabsPCP Menstrual period late 84 510920 N92.6 Uses for oligomenor luis enrique if menses does not happen on it's own.RF sent x 1yrUnderst ands importance of this therapy to prevent risks of precancer/ cancers of uterine/en do lining. [id number] Benedict Rick MD [facility] [address] [address] 12/03/2023 16:31:11 12/04/2023 05:23:04 Menorrhagia 629867837 N92.0 38-year-ol d female with severe menorrhagi [...] We made a decision to perform surgery. [id number] [facility] [address] [address] 12/04/2023 15:58:31 12/05/2023 08:25:09 Pain in pelvis 90970013 R10.2 Today we agreed to ketorolac injections [...] [place] [id number] Benedict Rick MD [facility] [address] [address] 12/08/2023 16:58:09 12/09/2023 07:01:49 Pain in pelvis 23478263 R10.2 this patient is a 38-year-ol d [...] ce. More than 50% was counseling . [id number] Benedict Rick MD [facility] [address] [address] 12/19/2023 12:35:47 12/19/2023 13:03:52 Pain in pelvis 60530500 R10.2 this patient is a 38-year-ol d [...] Islas Member ID Guarantor Name 12/30/2023 1 [facility] [id number] Araceli Cedeno [id number] Araceli Cedeno Notes Date Note Type Note Provider Name and Address Organization Details Recorded Time 12/03/2023 text/html 38-year-old female with severe menorrhagia. We had previously agreed [...] ovaries or leaving them in.n 40 minutes smhm-sw-[id number]. More than 50% was counseling. We made a decision to perform surgery. Benedict Rick MD [address], [place], [address], [facility] 12/03/2023 19:00:53 12/04/2023 text/html ROS as noted in the HPI Araceli is a 38yo here today with [...] Vag d/c, odor, irritation, itching Savannah Downing, [facility] [address], [place], [address], , [facility] 12/11/2023 12:24:15 12/08/2023 text/html this patient [...] She has fibromyalgia. We spent 20 minutes abom-gw-qvno. More than 50% was counseling. Benedict Rick MD [address], [place], [address], , P[facility] 12/08/2023 18:11:25 12/19/2023 text/html 38-year-old female with severe pelvic pain. We have [...] infection. Benedict Rick MD [address], [place], [address], [place] [facility] 12/19/2023 12:56:09 OBGyn Episode Ob Episode Information Episode Created Date Number of Fetuses Patient Bloodtype Patient rh Status Prepregnancy Weight lbs Domestic Partner Domestic Partner Phone Father Name Glue Bone Drier Status 07/11/20 1 CLOSED Fetus Data First Name Last [...] Domestic Partner Domestic Partner Phone Father Name Glue Bone Drier Status 07/11/20 1 CLOSED Fetus Data First Name Last [...]
--- OUTSIDE RECORDS SUMMARY | 2025-08-17 04:12 | XMS_ITS | Encounter Summary ---
Author Organization [facility] Healthcare Address [address] [place] [address] Care Team Providers Care Crotch Breaker Name Role Phone Lacey Valente MD Primary Care Provider [phone] Kevin Vega MD Primary Care Provider [phone] Deedee Long MD Primary Care Provider + Encounter Details Date Type Department Care Team (Late st Contact Info) Description 12/21/2017 Orders Only [facility] Health Information Management [address] [place] [id number] Scanning, Provider Social History Tobacco Use Types Packs/Day Years Used Date Smoking Tobacco: Never Assessed Comments Unknown Sex and Gender Information Value Date Recorded Sex Assigned at Not on file 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
--- OUTSIDE RECORDS SUMMARY | 2025-08-17 04:12 | XMS_ITS | Encounter Summary ---
Author Organization [facility] Healthcare Address [address] [place] [address] Care Team Providers Care Manager Net Name Role Phone Kevin Vega MD Primary Care Provider [phone] Deedee Long MD Primary Care Provider + Encounter Details Date Type Department Care Team (Late st Contact Info) Description 03/23/2018 Orders Only [facility] Health Information Management [address] [place] [id number] Scanning, Provider Social History Tobacco Use Types Packs/Day Years Used Date Smoking Tobacco: Never Smokeless Tobacco: Never Alcohol Use Standard Drinks/Week Comments No 0 (1 standard drink = 0.6 oz pur e alcohol) Comments Unknown Sex and Gender Information Value Date Recorded Sex Assigned at Not on file 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
== END 2025-08-17 02:33 | disposition home or self-care (01) ==
PROVIDERS: Emergency Provider Emergency Medicine; PCP Family Medicine
DX: R51.9 Headache, unspecified (principal); R07.89 Other chest pain; M79.7 Fibromyalgia
CPT/HCPCS: 36415; 70450; 71045; 80053; 83690; 83735; 84484; 85025; 93005; 96361; 96365; 96375; 99284; A9270; J1100; J1200; J2765; J3475; J7030

== ENCOUNTER 2025-08-31 10:39 | Outpatient (CLI) | payer OTHER, SELFPAY ==
--- NOTE | ~2025-08-31 | XR_ITS ---
XR cervical spine 4-5V Indication: suspect thoracic outlet syndrome, pain x 2 months Comparison: None Findings: No fracture, no subluxation flexion and extension. The disc heights are intact. Soft tissues unremarkable Impression: No acute abnormality. Reviewed, dictated and finalized at location P. WIFE Impression: No acute abnormality.
== END 2025-08-31 10:40 | disposition home or self-care (01) ==
LOC: GOSHIMG 10:40
PROVIDERS: PCP Family Medicine; Visit Provider Family Medicine
DX: M54.12 Radiculopathy, cervical region (principal)
CPT/HCPCS: 72050